=== PATIENT | male | born 1940 | race Caucasian/White ===

== ENCOUNTER 2017-01-24 14:42 | Outpatient (RCR) | payer MEDICARE | END 2017-04-24 | disposition home or self-care (01) | LOC: DSME 14:42 | PROVIDERS: ATTEND Family Medicine | DX: E11.65 Type 2 diabetes mellitus with hyperglycemia (principal); I10 Essential (primary) hypertension; E66.9 Obesity, unspecified ==

== ENCOUNTER 2017-05-09 05:50 | Outpatient (CLI) | payer MEDICARE ==
[~2017-05-09] VITALS: Ht 167.6 cm; Wt 77.1 kg
[2017-05-09] MEDS ORDERED: SIMV20TA3 PO (10:47)
[2017-05-09] MEDS ORDERED: LOSA100T28 PO (10:47)
[2017-05-09] MEDS ORDERED: BISO1TAB3 PO (10:47)
[2017-05-09] MEDS ORDERED: GLIM2TAB PO (10:47)
[2017-05-10] MEDS ORDERED: ACHD5005 PO (14:42)
== END 2017-05-09 10:56 ==
LOC: PREOP 05:50
PROVIDERS: ATTEND Surgery
DX: Z01.818 Encounter for other preprocedural examination (principal); L98.9 Disorder of the skin and subcutaneous tissue, unspecified

== ENCOUNTER 2017-07-28 12:50 | Outpatient (CLI) | payer MEDICARE ==
[~2017-07-28] VITALS: Ht 167.6 cm; Wt 77.1 kg
[~2017-07-28 12:50] MED LIST: ACHD5005 PO; BISO1TAB3 PO; GLIM2TAB PO; LOSA100T28 PO; SIMV20TA3 PO
== END 2017-07-28 13:04 ==
LOC: PREOP 12:50
PROVIDERS: ATTEND Urology
DX: Z01.818 Encounter for other preprocedural examination (principal); N40.0 Benign prostatic hyperplasia without lower urinary tract symptoms; R97.20 Elevated prostate specific antigen [PSA]

== ENCOUNTER 2017-08-03 06:00 | Day surgery (SDC) | payer MEDICARE ==
[~2017-08-03] VITALS: Ht 167.6 cm; Wt 77.1 kg
--- OUTSIDE RECORDS SUMMARY | 2017-08-03 06:08 | XMS REPORT | Continuity of Care Document ---
Author Author [facility] Organization [facility] Address Unknown Phone Unavailable Allergies Active Description Code Type Severity Reaction Onset Reported/Identified Relationship to Patient Clinical Status Yes No Known Drug Allergies [id number] Drug Allergy Unknown N/A 07/28/2017 Medications There is no data. Problems Date Dx Coded Attending Type Code Diagnosis Diagnosed By 01/24/2017 JAZMINE AVILEZ MD, Ot 562.10 DIVERTICULOSIS COLON (W/O MENT OF HEMORR 01/24/2017 JAZMINE AVILEZ MD Ot 599.70 HEMATURIA, UNSPECIFIED 01/25/2017 RANDI VIGIL MD Ot E11.65 TYPE 2 DIABETES MELLITUS WITH HYPERGLYCE 01/25/2017 RANDI VIGIL MD Ot E66.9 OBESITY, UNSPECIFIED 01/25/2017 RANDI VIGIL MD Ot I10 ESSENTIAL (PRIMARY) HYPERTENSION 04/24/2017 RANDI VIGIL MD Ot E11.65 TYPE 2 DIABETES MELLITUS WITH HYPERGLYCE 04/24/2017 RANDI VIGIL MD Ot E66.9 OBESITY, UNSPECIFIED 04/24/2017 RANDI VIGIL MD Ot I10 ESSENTIAL (PRIMARY) HYPERTENSION 04/25/2017 RANDI VIGIL MD Ot E11.65 TYPE 2 DIABETES MELLITUS WITH HYPERGLYCE 04/25/2017 RANDI VIGIL MD Ot E66.9 OBESITY, UNSPECIFIED 04/25/2017 RANDI VIGIL MD Ot I10 ESSENTIAL (PRIMARY) HYPERTENSION 05/09/2017 SACHI KNIGHT DO Ot L98.9 DISORDER OF THE SKIN AND SUBCUTANEOUS TI 05/09/2017 SACHI KNIGHT DO Ot Z01.818 ENCOUNTER FOR OTHER PREPROCEDURAL EXAMIN 05/09/2017 JAZMINE AVILEZ MD Ot 562.10 DIVERTICULOSIS COLON (W/O MENT OF HEMORR 05/09/2017 JAZMINE AVILEZ MD Ot 599.70 HEMATURIA, UNSPECIFIED 05/09/2017 YARITZA MD, RANDI A Ot E11.65 TYPE 2 DIABETES MELLITUS WITH HYPERGLYCE 05/09/2017 RANDI VIGIL MD Ot E66.9 OBESITY, UNSPECIFIED 05/09/2017 RANDI VIGIL MD Ot I10 ESSENTIAL (PRIMARY) HYPERTENSION 05/09/2017 RANDI VIGIL MD Ot E11.65 TYPE 2 DIABETES MELLITUS WITH HYPERGLYCE 05/09/2017 RANDI VIGIL MD Ot E66.9 OBESITY, UNSPECIFIED 05/09/2017 RANDI VIGIL MD Ot I10 ESSENTIAL (PRIMARY) HYPERTENSION 05/10/2017 SACHI KNIGHT DO Ot L98.9 DISORDER OF THE SKIN AND SUBCUTANEOUS TI 05/10/2017 SACHI KNIGHT DO Ot Z01.818 ENCOUNTER FOR OTHER PREPROCEDURAL EXAMIN 05/10/2017 RAGHAV SHEEHAN, JAZMINE Moreland Ot 562.10 DIVERTICULOSIS COLON (W/O MENT OF HEMORR 05/10/2017 JAZMINE AVILEZ MD Ot 599.70 HEMATURIA, UNSPECIFIED 05/10/2017 RANDI VIGIL MD Ot E11.65 TYPE 2 DIABETES MELLITUS WITH HYPERGLYCE 05/10/2017 RANDI VIGIL MD Ot E66.9 OBESITY, UNSPECIFIED 05/10/2017 RANDI VIGIL MD Ot I10 ESSENTIAL (PRIMARY) HYPERTENSION 05/10/2017 SACHI KNIGHT DO Ot C44.629 SQUAMOUS CELL CARCINOMA SKIN/ LEFT UPPER 05/10/2017 SACHI KNIGHT DO D Ot E11.9 TYPE 2 DIABETES MELLITUS WITHOUT COMPLIC 05/10/2017 SACHI KNIGHT DO Ot I10 ESSENTIAL (PRIMARY) HYPERTENSION 05/10/2017 SACHI KNIGHT DO D Ot 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 05/10/2017 SACHI KNIGHT DO Ot Z79.899 OTHER GROUP HOME (CURRENT) DRUG THERAPY 05/14/2017 SACHI KNIGHT DO D Ot C44.629 SQUAMOUS CELL CARCINOMA SKIN/ LEFT UPPER 05/14/2017 SACHI KNIGHT DO D Ot E11.9 TYPE 2 DIABETES MELLITUS WITHOUT COMPLIC 05/14/2017 GRACE KNIGHT DOTT D Ot I10 ESSENTIAL (PRIMARY) HYPERTENSION 05/14/2017 SACHI KNIGHT DO D Ot 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 05/14/2017 SACHI KNIGHT DO Ot Z79.899 OTHER GROUP HOME (CURRENT) DRUG THERAPY 05/15/2017 SACHI KNIGHT DO Ot L98.9 DISORDER OF THE SKIN AND SUBCUTANEOUS TI 05/15/2017 SACHI KNIGHT DO Ot Z01.818 ENCOUNTER FOR OTHER PREPROCEDURAL EXAMIN 05/21/2017 SACHI KNIGHT DO Ot C44.629 SQUAMOUS CELL CARCINOMA SKIN/ LEFT UPPER 05/21/2017 SACHI KNIGHT DO Ot E11.9 TYPE 2 DIABETES MELLITUS WITHOUT COMPLIC 05/21/2017 SACHI KNIGHT DO Ot I10 ESSENTIAL (PRIMARY) HYPERTENSION 05/21/2017 SACHI KNIGHT DO Ot 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 05/21/2017 SACHI KNIGHT DO Ot Z79.899 OTHER [employer] (CURRENT) DRUG THERAPY 07/21/2017 JAZMINE AVILEZ MD Ot 562.10 DIVERTICULOSIS COLON (W/O MENT OF HEMORR 07/21/2017 JAZMINE AVILEZ MD Ot 599.70 HEMATURIA, UNSPECIFIED 07/21/2017 RANDI VIGIL MD Ot E11.65 TYPE 2 DIABETES MELLITUS WITH HYPERGLYCE 07/21/2017 RANDI VIGIL MD Ot E66.9 OBESITY, UNSPECIFIED 07/21/2017 RANDI VIGIL MD Ot I10 ESSENTIAL (PRIMARY) HYPERTENSION 07/28/2017 RANDI VIGIL MD Ot E11.65 TYPE 2 DIABETES MELLITUS WITH HYPERGLYCE 07/28/2017 RANDI VIGIL MD Ot E66.9 OBESITY, UNSPECIFIED 07/28/2017 RANDI VIGIL MD Ot I10 ESSENTIAL (PRIMARY) HYPERTENSION 07/28/2017 JAZMINE AVILEZ MD Ot N40.0 BENIGN PROSTATIC HYPERPLASIA WITHOUT LOW 07/28/2017 JAZMINE AVILEZ MD Ot R97.20 ELEVATED PROSTATE SPECIFIC ANTIGEN [PSA] 07/28/2017 JAZMINE AVILEZ MD Ot Z01.818 ENCOUNTER FOR OTHER PREPROCEDURAL EXAMIN 07/28/2017 JAZMINE AVILEZ MD Ot N40.0 BENIGN PROSTATIC HYPERPLASIA WITHOUT LOW 07/28/2017 JAZMINE AVILEZ MD Ot R97.20 ELEVATED PROSTATE SPECIFIC ANTIGEN [PSA] 07/28/2017 JAZMINE AVILEZ MD Ot Z01.818 ENCOUNTER FOR OTHER PREPROCEDURAL EXAMIN 07/29/2017 JAZMINE AVILEZ MD Ot N40.0 BENIGN PROSTATIC HYPERPLASIA WITHOUT LOW 07/29/2017 JAZMINE AVILEZ MD Ot R97.20 ELEVATED PROSTATE SPECIFIC ANTIGEN [PSA] 07/29/2017 JAZMINE AVILEZ MD Ot Z01.818 ENCOUNTER FOR OTHER PREPROCEDURAL EXAMIN Procedures There is no data. Results Test Result Range Capillary blood glucose measurement by glucometer (mass/volume) - 05/10/17 13: 24 Capillary blood glucose measurement by glucometer (mass/volume) 125 mg/dL 70-110 Methicillin resistant Staphylococcus aureus (MRSA) screening culture - 13:25 Methicillin resistant Staphylococcus aureus (MRSA) screening culture NEG NRG Encounters ACCT No. Visit Date/Time Discharge Status Pt. Type Provider Facility Loc./Unit Complaint [id number] 07/28/2017 12:50:00 07/28/2017 13:04:00 DIS Outpatient JAZMINE AVILEZ MD [facility] PREOP CYSTO, PROSTATE BIOPSY [id number] 05/10/2017 13:05:00 05/10/2017 16:25:00 DIS Outpatient KNIGHT SACHI HENRY [facility] SKIN LESION LEFT ARM X2 [id number] 05/09/2017 05:50:00 05/09/2017 10:56:00 DIS Outpatient SACHI KNIGHT DO [facility] PREOP SKIN LESION LEFT ARM X2 [id number] 04/25/2017 15:00:00 04/25/2017 23:59:59 CLS Preadmit RANDI VIGIL MD [facility] DSME TYPE 2 DIABETES [id number] 01/24/2017 14:42:00 04/24/2017 00:01:00 DIS Outpatient RANDI VIGIL MD [facility] JONE TYPE 2 DIABETES [id number] 02/06/2013 14:55:00 02/06/2013 23:59:59 CLS Outpatient JAZMINE AVILEZ MD [facility] RAD HEMATURIA [id number] 08/03/2017 08:00:00 PEN Preadmit JAZMINE AVILEZ MD [facility] BPH, ELEVATED PSA [id number] 02/02/2017 14:53:08 02/02/2017 23:59:59 CLS Outpatient
[2017-08-03 06:40] VITALS: BP 155/79
[2017-08-03] MEDS ORDERED: MIDAZOLAM 2 MG/2 ML (VERSED) VIAL ONE (06:48)
[2017-08-03] MEDS ORDERED: proPOfol 200 MG/20 ML (DIPRIVAN) VIAL IV ONE (06:48)
[2017-08-03] MEDS ORDERED: ONDANSETRON 4 MG/2 ML (SDV) Z0FRAN ONE (06:48)
[2017-08-03] MEDS ORDERED: fentaNYL INJECTION 100 MCG/2 ML AMP ONE (06:48)
[2017-08-03] MEDS ORDERED: LIDOCAINE PF 2% 5 ML (XYLOCAINE) VIAL ONE (06:48)
[2017-08-03] MEDS ORDERED: SEVOFLURANE (ULTANE) 15 ML INHAL SOLN ONE ×2 (06:48→07:44)
[2017-08-03] MEDS ORDERED: LACTATED RINGERS 1,000 ML IV PRN (06:55)
[2017-08-03] MEDS ORDERED: cefTRIAXone INJECTION 1,000 MG in NS (IVPB) 100 ML IV ONE (07:00)
--- NOTE | 2017-08-03 07:11 | Progress Note-Pre Operative ---
Pre-Operative Progress Note H&P Reviewed The H&P was reviewed, patient examined and no changes noted. Date Seen by Provider: August 03, 2017 Time Seen by Provider: 07:10 Date H&P Reviewed: August 03, 2017 Time H&P Reviewed: 07:10 Pre-Operative Diagnosis: BPH AND ELEVATED PSA JAZMINE AVILEZ MD August 03, 2017 7:11 am
[2017-08-03] MEDS ORDERED: LIDOCAINE JELLY 2% (XYLOCAINE) 5 ML TUBE ONE (07:32)
--- NOTE | 2017-08-03 07:53 | Progress Note-Post Operative ---
Post-Operative Progess Note Surgeon (s)/Pack Room Operator (s) Surgeon JAZMINE AVILEZ MD Pack Room Operator: N/A Pre-Operative Diagnosis BPH AND ELEVATED PSA Post-Operative Diagnosis SAME Procedure & Operative Findings Date of Procedure 08/03/17 Procedure Performed/Findings CYSTOSCOPY AND PROSTATE BIOPSIES Anesthesia Type GENERAL Estimated Blood Loss Estimated blood loss (mL): NEGLIGIBLE Specimens/Packing Specimens Removed 8 PROSTATE BIOPSIES 4RT AND 4 LT Packing: N/A JAZMINE AVILEZ MD August 03, 2017 7:52 am
--- NOTE | 2017-08-03 07:54 | Discharge Inst-Urology ---
Discharge Inst-Urology Discharge Medications New, Converted, or Re-newed RX: RX on Chart Patient Instructions/Follow Up Plan Please make appointment to been seen in office in 2 weeks. Increase oral fluids for 48 hours and then as needed. Diet and Activity as tolerated. If questions or concerns contact your physician Or seek help at emergency department. JAZMINE AVILEZ MD August 03, 2017 7:54 am
[2017-08-03] MEDS ORDERED: MEPERIDINE (DEMEROL) INJ 50 MG/ML IVP PRN (08:00)
[2017-08-03] MEDS ORDERED: ONDANSETRON 4 MG/2 ML (SDV) Z0FRAN IVP PRN (08:00)
[2017-08-03] MEDS ORDERED: morphine INJ 10 MG/ML 1ML (SYR OR VIAL) IVP PRN (08:00)
[2017-08-03 08:30] VITALS: BP 113/75
[2017-08-03] MEDS ORDERED: LEVO500T2 PO (08:35)
[2017-08-03 09:00] VITALS: BP 142/64
[2017-08-03 09:05] VITALS: BP 142/64
--- NOTE | 2017-08-03 12:50 | OPERATIVE REPORT ---
DATE OF SERVICE: 08/03/2017 PREOPERATIVE DIAGNOSES: BPH and elevated PSA. POSTOPERATIVE DIAGNOSES: BPH and elevated PSA. OPERATION PERFORMED: Cystoscopy and transrectal needle biopsy of the prostate. SURGEON: Tristan Avilez MD ANESTHESIA: General. COMPLICATIONS: None. DESCRIPTION OF PROCEDURE: Under satisfactory general anesthesia, the patient in lithotomy position, genitalia were prepped and draped in the usual sterile fashion. A 23-[place]ian cystoscope was introduced under vision. The anterior urethra was normal. The prostate showed the high riding median bar with still some manipulation of the cystoscope to enter the bladder. The bladder revealed trabeculations, no foreign body, bladder tumor or stone visualized. Ureteric orifices normal in shape, size, configuration with clear efflux. The bladder was evacuated and the cystoscope was removed. Transrectal needle biopsies were obtained 4 on each side, trying to take them from various sides in the each lobe. Again, the prostate felt benign. There was minimal bleeding. The patient tolerated the procedure and anesthesia well and was sent to recovery room in stable condition. Instructions were given to the family and to the patient preoperatively. Job ID: [id number] DocumentID: [id number] Dictated Date: 08/03/2017 07:55:58 Metallurgist Helper Date: 08/03/2017 12:49:36 Dictated By: TRISTAN AVILEZ MD
--- NOTE | 2017-08-03 13:06 | Anesthesia-General Post-Op ---
General Patient Condition Mental Status/LOC: Same as Preop Cardiovascular: Satisfactory Nausea/Vomiting: Absent Respiratory: Satisfactory Pain: Controlled Complications: Absent Post Op Complications Complications None Follow Up Care/Instructions Patient Instructions None needed. Anesthesia/Patient Condition Patient Condition Patient is doing well, no complaints, stable vital signs, no apparent adverse anesthesia problems. No complications reported per nursing. CHELSEA LOPEZ CRNA August 03, 2017 13:06
== END 2017-08-03 09:25 | disposition home or self-care (01) ==
LOC: SDC 06:00
PROVIDERS: ATTEND Urology
DX: C61 Malignant neoplasm of prostate (principal); N40.0 Benign prostatic hyperplasia without lower urinary tract symptoms; R97.20 Elevated prostate specific antigen [PSA]; Z11.2 Encounter for screening for other bacterial diseases; E11.9 Type 2 diabetes mellitus without complications; E78.5 Hyperlipidemia, unspecified; I10 Essential (primary) hypertension; Z79.84 Long term (current) use of oral hypoglycemic drugs
CPT/HCPCS: 82962; 87081; 88305

== ENCOUNTER 2018-03-09 05:59 | Outpatient (CLI) | payer MEDICARE ==
[~2018-03-09] VITALS: Ht 167.6 cm; Wt 77.1 kg
[~2018-03-09 05:59] MED LIST changes: +LEVO500T2 PO; -LOSA100T28 PO; +LOSA100T8 PO
[2018-03-09] MEDS ORDERED: TAMS0.4C2 PO (12:56)
[2018-03-09] MEDS ORDERED: FINA5TAB6 PO (12:56)
== END 2018-03-09 13:00 | disposition home or self-care (01) ==
LOC: PREOP 05:59
PROVIDERS: ATTEND Urology
DX: Z01.818 Encounter for other preprocedural examination (principal)

== ENCOUNTER 2018-03-14 05:58 | Day surgery (SDC) | payer MEDICARE ==
[~2018-03-14] VITALS: Ht 160 cm; Wt 78.0 kg
[~2018-03-14 05:58] MED LIST changes: +FINA5TAB6 PO; +TAMS0.4C2 PO
--- OUTSIDE RECORDS SUMMARY | 2018-03-14 06:05 | XMS REPORT | CCD ---
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 Name Role Phone PP Unavailable CCM Unavailable Summary Purpose Interface Exchange Insurance Providers Payer name Policy type / Coverage type Covered green party ID Effective Begin Date Effective End Date WPS Medicare Part B Medicare Part B [id number] 2018 Unknown [facility] Medicare Part B No Plan Member ID Provided 2018 Unknown Family history Brother Diagnosis Age At Onset Prostate Cancer Unknown Kidney cancer Unknown Skin cancer Unknown Grandfather Diagnosis Age At Onset Stroke Unknown Father Diagnosis Age At Onset Diabetes mellitus Type 2 Unknown Mother Diagnosis Age At Onset Arthritis Unknown advanced age Unknown Social History Social History Element Codes Description Effective Dates Marital status Unknown 10/23/2014 Employment Unknown 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 10/23/[address]: 299942655 Never smoker 10/23/[address]: 905681157 Never drinks alcohol 10/23/2014 Allergies, Adverse Reactions, Alerts Substance Reaction Codes Entered Date Inactivated Date Status * NO KNOWN DRUG ALLERGIES Unknown 10/23/2014 No Inactive Date Active Past Medical History Illness Codes Condition Status Onset Date Resolved Date Chronic kidney disease, stage 3 (moderate) ICD-9: 585.3 ICD-10: N18.3 Active 11/16/2016 Unknown Essential (primary) hypertension ICD-9: 401.1 ICD-10: I10 Active 05/05/2017 Unknown Type 2 diabetes mellitus with hyperglycemia ICD-9: 250.00 ICD-10: E11.65 Active 10/22/2014 Unknown Malignant neoplasm of prostate ICD-9: 185 ICD-10: C61 Active 09/07/2017 Unknown Type 2 diabetes mellitus without complications ICD-9: 250.00 ICD-10: E11.9 Active 05/05/2017 Unknown Changes in skin texture ICD-9: 782.9 ICD-10: R23.4 Active 05/05/2017 Unknown Abnormal weight loss ICD-9: 783.21 ICD-10: R63.4 Active 03/03/2017 Unknown Encounter for general adult medical examination with abnormal findings ICD-9: V70.0 ICD-10: Z00.01 Active 03/15/2017 Unknown Essential (primary) hypertension ICD-9: 401.9 ICD-10: I10 Active 10/22/2014 Unknown Elevated prostate specific antigen [PSA] ICD-9: 790.93 ICD-10: R97.20 Active 11/16/2016 Unknown Mixed hyperlipidemia ICD-9: 272.2 ICD-10: E78.2 Active 07/19/2016 Unknown Encounter for general adult medical examination without abnormal findings ICD-9: V70.9 ICD-10: Z00.00 Active 03/11/2016 Unknown Hyperlipidemia, unspecified ICD-9: 272.4 ICD-10: E78.5 Active 11/05/2015 Unknown Other skin changes ICD -9: 709.9 ICD-10: R23.8 Active 10/22/2014 Unknown Unspecified amblyopia, right eye ICD-9: 368.00 ICD-10: H53.001 Active 07/28/2015 Unknown Other abnormal glucose ICD-9: 790.29 ICD-10: R73.09 Active 05/07/2015 Unknown Hyperlipidemia Unknown Active 04/29/2015 Unknown Diabetes Unknown Active 10/23/2014 Unknown Hypertension Unknown Active 10/23/2014 Unknown ACTINIC KERATOSIS ICD- 9: 702.0 Active 10/22/2014 Unknown Changing skin lesion ICD-9: 709.9 Active 10/22/2014 Unknown DIABETES TYPE II ICD-9 : 250.00 Active 10/22/2014 Unknown ESSENTIAL HYPERTENSION ICD-9: 401.9 Active 10/22/2014 Unknown Impacted cerumen ICD-9 : 380.4 Active 10/22/2014 Unknown Skin change ICD-9: 782.9 Active 10/22/2014 Unknown Problems Condition Codes Effective Dates Condition Status Chronic kidney disease, stage 3 (moderate) ICD-9: 585.3 ICD-10: N18.3 11/16/2016 Active Essential (primary) hypertension ICD-9: 401.1 ICD-10: I10 05/05/2017 Active Type 2 diabetes mellitus with hyperglycemia ICD-9: 250.00 ICD-10: E11.65 10/22/2014 Active Malignant neoplasm of prostate ICD-9: 185 ICD-10: C61 09/07/2017 Active Type 2 diabetes mellitus without complications ICD-9: 250.00 ICD-10: E11.9 05/05/2017 Active Changes in skin texture ICD-9: 782.9 ICD-10: R23.4 05/05/2017 Active Abnormal weight loss ICD-9: 783.21 ICD-10: R63.4 03/03/2017 Active Encounter for general adult medical examination with abnormal findings ICD-9: V70.0 ICD-10: Z00.01 03/15/2017 Active Essential (primary) hypertension ICD-9: 401.9 ICD-10: I10 10/22/2014 Active Elevated prostate specific antigen [PSA] ICD-9: 790.93 ICD-10: R97.20 11/16/2016 Active Mixed hyperlipidemia ICD-9: 272.2 ICD-10: E78.2 07/19/2016 Active Encounter for general adult medical examination without abnormal findings ICD-9: V70.9 ICD-10: Z00.00 03/11/2016 Active Hyperlipidemia, unspecified ICD-9: 272.4 ICD-10: E78.5 11/05/2015 Active Other skin changes ICD -9: 709.9 ICD-10: R23.8 10/22/2014 Active Unspecified amblyopia, right eye ICD-9: 368.00 ICD-10: H53.001 07/28/2015 Active Other abnormal glucose ICD-9: 790.29 ICD-10: R73.09 05/07/2015 Active Hyperlipidemia Unknown 04/29/2015 Active Diabetes Unknown 10/23/2014 Active Hypertension Unknown 10/23/2014 Active ACTINIC KERATOSIS ICD- 9: 702.0 10/22/2014 Active Changing skin lesion ICD-9: 709.9 10/22/2014 Active DIABETES TYPE II ICD-9 : 250.00 10/22/2014 Active ESSENTIAL HYPERTENSION ICD-9: 401.9 10/22/2014 Active Impacted cerumen ICD-9 : 380.4 10/22/2014 Active Skin change ICD-9: 782.9 10/22/2014 Active Medications Medication Codes Instructions Start Date Stop Date Status Fill Instructions simvastatin 20 mg tablet RxNorm: 898809 TAKE ONE TABLET BY MOUTH DAILY 03/06/2018 11/30/2018 Active Generic For:ZOCOR 20MG 03/06/2018 9:01:27 AM Truetest Test Strips RxNorm: TEST BLOOD SUGAR EVERY DAY 201711/26/2018 Active 01/30/2018 3:29:14 PM bisoprolol fumarate 5 mg tablet RxNorm: 652534 1 Tablet(s) PO BID 01/30/2018 08/27/2018 Active this replaces his combination pill glimepiride 2 mg tablet RxNorm: 473720 TAKE 1/2 (ONE- HALF) TABLET BY MOUTH TWICE DAILY 12/06/2017 06/03/2018 Active Generic For:AMARYL 2MG 12/06/2017 9:07:06 AM losartan 100 mg tablet RxNorm: 166157 TAKE 1 TABLET BY MOUTH DAILY 11/07/2017 06/04/2018 Active Generic For:COZAAR 100MG 11/07/2017 9:05:45 AM bisoprolol 5 mg-hydrochlorothiazide 6.25 mg tablet RxNorm: 699665 TAKE 1 TABLET BY MOUTH TWICE DAILY 09/15/20172017 Inactive Generic For:ZIAC 5-6.25MG 09/15/2017 9:07:10 AM glimepiride 2 mg tablet RxNorm: 213331 TAKE 1/2 (ONE- HALF) TABLET BY MOUTH TWICE DAILY 06/17/2017 12/05/2017 Inactive Generic For:AMARYL 2MG 06/17/2017 9:01:41 AM simvastatin 20 mg tablet RxNorm: 321736 TAKE ONE TABLET BY MOUTH DAILY 06/17/2017 03/05/2018 Inactive Generic For:ZOCOR 20MG 06/17/2017 9:01:38 AM losartan 100 mg tablet RxNorm: 056420 TAKE 1 TABLET BY MOUTH DAILY 04/18/2017 11/06/2017 Inactive Generic For:COZAAR 100MG 04/18/2017 9:40:33 AM bisoprolol 5 mg-hydrochlorothiazide 6.25 mg tablet RxNorm: 944447 TAKE 1 TABLET BY MOUTH TWICE DAILY 02/17/20172017 Inactive Generic For:ZIAC 5-6.25MG 02/17/2017 9:04:42 AM glimepiride 2 mg tablet RxNorm: 184739 1/2 Tablet(s) BID 201606/16/2017 Inactive Generic For:AMARYL 2MG 07/22/2016 9:03:39 AM Zithromax 250 mg tablet RxNorm: 296503 two pills on day #1 then 1 Tablet(s) PO daily 01/04/2017 01/08/2017 Inactive zpackx1 glimepiride 2 mg tablet RxNorm: 787496 1 Tablet(s) TAKE 1 TABLET BY MOUTH TWICE DAILY 11/17/2016 02/01/2017 Inactive Generic For:AMARYL 2MG 07/22/2016 9:03:39 AM glimepiride 2 mg tablet RxNorm: 757205 1 Tablet(s) TAKE 1 TABLET BY MOUTH TWICE DAILY 11/17/2016 11/16/2016 Inactive Generic For:AMARYL 2MG 07/22/2016 9:03:39 AM Ness Allergy 180 mg tablet RxNorm: 867947 1 Tablet(s) PO daily 10/25/2016 10/24/2016 Inactive Zithromax 250 mg tablet RxNorm: 558872 1 Tablet(s) PO daily 10/24/2016 Inactive zpackx1 Ness Allergy 180 mg tablet RxNorm: 432834 1 Tablet(s) PO daily 10/25/2016 03/07/2017 Inactive Zithromax 250 mg tablet RxNorm: 646098 1 Tablet(s) PO daily 10/29/2016 Inactive zpackx1 glimepiride 2 mg tablet RxNorm: 541281 1/2 Tablet(s) TAKE 1 TABLET BY MOUTH TWICE DAILY 10/12/2016 11/16/2016 Inactive Generic For:AMARYL 2MG 07/22/2016 9:03:39 AM losartan 100 mg tablet RxNorm: 912564 1 Tablet(s) PO daily 04/17/2017 Inactive metformin 500 mg tablet RxNorm: 565518 TAKE 1 TABLET BY MOUTH TWICE DAILY 09/20/2016 11/15/2016 Inactive Generic For:GLUCOPHAGE 500MG 09/20/2016 9:11:58 AM simvastatin 20 mg tablet RxNorm: 458393 TAKE ONE TABLET BY MOUTH DAILY 09/20/2016 06/16/2017 Inactive Generic For:ZOCOR 20MG 09/20/2016 9:11:29 AM bisoprolol 5 mg-hydrochlorothiazide 6.25 mg tablet RxNorm: 966603 TAKE 1 TABLET BY MOUTH TWICE DAILY 07/22/20162016 Inactive Generic For:ZIAC 5-6.25MG 07/22/2016 9:03:48 AM glimepiride 2 mg tablet RxNorm: 523268 TAKE 1 TABLET BY MOUTH TWICE DAILY 07/22/2016 10/11/2016 Inactive Generic For:AMARYL 2MG 07/22/2016 9:03:39 AM meloxicam 15 mg tablet RxNorm: 963380 TAKE 1 TABLET BY MOUTH DAILY 05/24/2016 11/15/2016 Inactive Generic For:MOBIC 15MG 05/24/2016 9:12:11 AM metformin 500 mg tablet RxNorm: 085867 1 Tablet(s) BID 201609/19/2016 Inactive Generic For:GLUCOPHAGE 500MG 04/29/2015 3:46:58 PM bisoprolol 5 mg-hydrochlorothiazide 6.25 mg tablet RxNorm: 344112 TAKE 1 TABLET BY MOUTH TWICE DAILY 03/31/20162016 Inactive Generic For:ZIAC 5-6.25MG 03/31/2016 12:38:33 PM glimepiride 2 mg tablet RxNorm: 815902 TAKE 1 TABLET BY MOUTH TWICE DAILY 03/31/2016 07/21/2016 Inactive Generic For:AMARYL 2MG 03/31/2016 12:38:28 PM losartan 100 mg tablet RxNorm: 423312 1 Tablet(s) PO daily 09/19/2016 Inactive simvastatin 20 mg tablet RxNorm: 986551 1 Tablet(s) PO daily 09/18/2016 Inactive glimepiride 2 mg tablet RxNorm: 092173 1 Tablet(s) PO BID 11/2303/22/2016 Inactive meloxicam 15 mg tablet RxNorm: 061817 1 Tablet(s) PO daily 05/21/2016 Inactive bisoprolol 5 mg-hydrochlorothiazide 6.25 mg tablet RxNorm: 073807 1 Tablet(s) PO BID 11/24/2015 03/22/2016 Inactive Generic For:ZIAC 5-6.25MG 03/31/2015 4:06:14 PM03/31/2015 3:58:36 PM metformin 500 mg tablet RxNorm: 638583 1 Tablet(s) BID 201504/04/2016 Inactive Generic For:GLUCOPHAGE 500MG 04/29/2015 3:46:58 PM losartan 50 mg tablet RxNorm: 977435 1 Tablet(s) PO daily 201502/29/2016 Inactive bisoprolol 5 mg-hydrochlorothiazide 6.25 mg tablet RxNorm: 235302 1 Tablet(s) PO BID 07/29/2015 11/23/2015 Inactive Generic For:ZIAC 5-6.25MG 03/31/2015 4:06:14 PM03/31/2015 3:58:36 PM bisoprolol 5 mg-hydrochlorothiazide 6.25 mg tablet RxNorm: 285180 Tablet(s) 1 TABLET(S) BY MOUTH DAILY 07/21/20152015 Inactive Generic For:ZIAC 5-6.25MG 03/31/2015 4:06:14 PM03/31/2015 3:58:36 PM meloxicam 15 mg tablet RxNorm: 580926 1 Tablet(s) PO daily 11/17/2015 Inactive glimepiride 2 mg tablet RxNorm: 096330 1 Tablet(s) PO BID 07/2011/17/2015 Inactive metformin 500 mg tablet RxNorm: 569265 Tablet(s) TAKE 1 TABLET BY MOUTH IN THE MORNING AND 1/2 TABLET IN THE EVENING 06/16/2015 11/06/2015 Inactive Generic For: GLUCOPHAGE 500MG 04/29/2015 3:46:58 PM metformin 500 mg tablet RxNorm: 957746 Tablet(s) TAKE 1 TABLET BY MOUTH IN THE MORNING AND 1/2 TABLET IN THE EVENING 05/19/2015 06/15/2015 Inactive Generic For: GLUCOPHAGE 500MG 04/29/2015 3:46:58 PM metformin 500 mg tablet RxNorm: 030390 TAKE 1/2 (ONE- HALF) TABLET BY MOUTH DAILY BY MOUTH TWICE DAILY 04/29/20152015 Inactive Generic For:GLUCOPHAGE 500MG 04/29/2015 3:46:58 PM meloxicam 15 mg tablet RxNorm: 833166 1 Tablet(s) PO daily 07/20/2015 Inactive simvastatin 20 mg tablet RxNorm: 587311 1 Tablet(s) PO daily 12/23/2015 Inactive bisoprolol 5 mg-hydrochlorothiazide 6.25 mg tablet RxNorm: 888576 1 TABLET(S) BY MOUTH DAILY 03/31/2015 07/20/2015 Inactive Generic For:ZIAC 5-6.25MG 03/31/2015 4: 06:14 PM03/31/2015 3:58:36 PM glimepiride 2 mg tablet RxNorm: 989999 1 Tablet(s) PO BID 02/0506/04/2015 Inactive increase to BID metformin 500 mg tablet RxNorm: 323115 1/2 Tablet(s) PO BID 04/20/2015 Inactive bisoprolol 5 mg-hydrochlorothiazide 6.25 mg tablet RxNorm: 326903 1 Tablet(s) PO daily 12/05/2014 12/04/2014 Inactive bisoprolol 5 mg-hydrochlorothiazide 6.25 mg tablet RxNorm: 151546 1 Tablet(s) PO daily 12/05/2014 03/30/2015 Inactive meloxicam 15 mg tablet RxNorm: 473858 1 Tablet(s) PO daily 04/201404/01/2015 Inactive Truetest Test Strips RxNorm: Miscellaneous daily 11/20/2014 11/19/2014 Inactive Truetest Test Strips RxNorm: Miscellaneous daily 11/20/2014 11/14/2015 Inactive finasteride 5 mg tablet RxNorm: 710625 1 Tablet(s) PO daily No Start Date Active tamsulosin 0.4 mg capsule RxNorm: 054271 1 Capsule(s) PO daily No Start Date Active simvastatin 20 mg tablet RxNorm: 868648 1 Tablet(s) PO daily No Start Date 04/01/2015 Inactive meloxicam 15 mg tablet RxNorm: 848476 1 Tablet(s) PO daily No Start Date 12/02/2014 Inactive metformin 500 mg tablet RxNorm: 242050 1/2 Tablet(s) PO BID No Start Date 01/20/2015 Inactive glimepiride 2 mg tablet RxNorm: 137471 1 Tablet(s) PO daily No Start Date 02/04/2015 Inactive Ziac 5 mg-6.25 mg tablet RxNorm: 203605 1 Tablet(s) PO daily No Start Date 04/02/2015 Inactive Medication Administered No Medication Administered data Immunizations No Immunization data Assessments Condition Codes Effective Dates Type 2 diabetes mellitus with hyperglycemia ICD-10: E11.65 ICD-9: 250.00 03/07/2018 Chronic kidney disease, stage 3 (moderate) ICD-10: N18.3 ICD-9: 585.3 03/07/2018 Essential (primary) hypertension ICD-10: I10 ICD-9: 401.1 03/07/2018 Type 2 diabetes mellitus without complications ICD-10: E11.9 ICD-9: 250.00 09/07/2017 Malignant neoplasm of prostate ICD-10: C61 ICD-9: 185 09/07/2017 Changes in skin texture ICD-10: R23.4 ICD-9: 782.9 05/05/2017 Abnormal weight loss ICD-10: R63.4 ICD-9: 783.21 2017 Encounter for general adult medical examination with abnormal findings ICD-10: Z00.01 ICD-9: V70.0 03/15/2017 Essential (primary) hypertension ICD-10: I10 ICD-9: 401.9 02/02/2017 Elevated prostate specific antigen [PSA] ICD-10: R97.20 ICD-9: 790.93 11/16/2016 Mixed hyperlipidemia ICD-10: E78.2 ICD-9: 272.2 07/19/2016 Encounter for general adult medical examination without abnormal findings ICD-10: Z00.00 ICD-9: V70.9 03/12/2016 Hyperlipidemia, unspecified ICD-10: E78.5 ICD-9: 272.4 11/06/2015 Other skin changes ICD-10: R23.8 ICD-9: 709.9 08/26/2015 Unspecified amblyopia, right eye ICD-10: H53.001 ICD-9: 368.00 07/29/2015 Other abnormal glucose ICD-10: R73.09 ICD-9: 790.29 05/08/2015 DIABETES TYPE II ICD-9: 250.00 2014 ACTINIC KERATOSIS ICD-9: 702.0 2014 Impacted cerumen ICD-9: 380.4 10/23/2014 Skin change ICD-9: 782.9 10/23/2014 Changing skin lesion ICD-9: 709.9 2014 ESSENTIAL HYPERTENSION ICD-9: 401.9 10/23 Reason For Visit Reason For Visit Effective Dates Notes hypertension 03/07/2018 hypertension 01/30/2018 hypertension 09/07/2017 hypertension 05/05/2017 right forefinger Annual Medicare Wellness Exam 03/15/2017 hypertension 02/02/2017 hypertension 01/04/2017 hypertension 11/16/2016 sugars run from 68-140 hypertension 07/19/2016 Annual Medicare Wellness Exam 03/12/2016 hypertension 03/10/2016 hypertension 11/06/2015 hypertension 08/26/2015 hypertension 07/29/2015 hypertension 04/29/2015 hypertension 10/23/2014 Results Observation Observation Code Item Item Code Result Date Metabolic Ord15 NA 138 mEq/L 03/03/2018 Metabolic Ord15 K 4.9 mEq/L 03/03/2018 Metabolic Ord15 CL 106 mEq/L 03/03/2018 Metabolic Ord15 CO2 26.0 mEq/L 03/03/2018 Metabolic Ord15 GLUCOSE 153 mg/dL 03/03/2018 Metabolic Ord15 BUN 26 mg/dL 03/03/2018 Metabolic Ord15 Creat 1.5 mg/dL 03/03/2018 Metabolic Ord15 B/C Ratio 17.2 Ratio 03/03/2018 Metabolic Ord15 eGFR 48 ml/min/1.73m2 03/03/2018 Metabolic Ord15 Osmo 283 mOsmo 03/03/2018 Metabolic Ord15 ANION GAP 11 03/03/2018 Metabolic Ord15 CALCIUM 9.5 mg/dL 03/03/2018 %Hba1C Hxd258 % HbA1c 63478-3 6.7 % 01/02/2018 %Hba1C Eal483 Gluc Ave 146 mg/dL 01/02/2018 Cbc With Differential Ord2 WBC 7.31 K/ul 01/02/2018 Cbc With Differential Ord2 RBC 4.50 M/ul 01/02/2018 Cbc With Differential Ord2 HGB 14.7 g/dl 01/02/2018 Cbc With Differential Ord2 HCT 44.2 % 01/02/2018 Cbc With Differential Ord2 Neut% 69.5 % 01/02/2018 Cbc With Differential Ord2 MCV 98.2 fl 01/02/2018 Cbc With Differential Ord2 Lymph% 19.8 % 01/02/2018 Cbc With Differential Ord2 MCH 32.7 pg 01/02/2018 Cbc With Differential Ord2 [place]% 9.2 % 01/02/2018 Cbc With Differential Ord2 MCHC 33.3 pg 01/02/2018 Cbc With Differential Ord2 Eos% 1.2 % 01/02/2018 Cbc With Differential Ord2 PLT 327 K/ul 01/02/2018 Cbc With Differential Ord2 Baso% 0.3 % 01/02/2018 Cbc With Differential Ord2 RDW 12.8 % 01/02/2018 Cbc With Differential Ord2 Neut ABS# 5.08 K/ul 01/02/2018 Cbc With Differential Ord2 Lymph ABS# 1.45 K/ul 01/02/2018 Cbc With Differential Ord2 [place] ABS# 0.7 K/ul 01/02/2018 Cbc With Differential Ord2 Eos ABS# 0.1 K/ul 01/02/2018 Cbc With Differential Ord2 Baso ABS# 0.0 K/ul 01/02/2018 Comp Metabolic Pfc339 NA 138 mEq/L 01/02/2018 Comp Metabolic Gbe591 K 4.5 mEq/L 01/02/2018 Comp Metabolic Ziz082 CL 103 mEq/L 01/02/2018 Comp Metabolic Vrf539 CO2 28.0 mEq/L 01/02/2018 Comp Metabolic Hcz967 ANION GAP 12 01/02/2018 Comp Metabolic Osa586 GLUCOSE 186 mg/dL 01/02/2018 Comp Metabolic Bym912 Creat 1.9 mg/dL 01/02/2018 Comp Metabolic Xxd050 eGFR 37 ml/min/1.73m2 01/02/2018 Comp Metabolic Qmc776 BUN 23 mg/dL 01/02/2018 Comp Metabolic Gdm801 B/C Ratio 12.2 Ratio 01/02/2018 Comp Metabolic Ayu607 CALCIUM 9.4 mg/dL 01/02/2018 Comp Metabolic Rja905 ALK PHOS 46 U/L 01/02/2018 Comp Metabolic Egh914 AST(SGOT) 16 U/L 01/02/2018 Comp Metabolic Vhu912 ALT(SGPT) 19 U/L 01/02/2018 Comp Metabolic Byl892 BILI T 0.6 mg/dL 01/02/2018 Comp Metabolic Zoj558 ALBUMIN 3.8 g/dL 01/02/2018 Comp Metabolic Koz176 TPRO 6.1 g/dL 01/02/2018 Comp Metabolic Fon239 GLOB 2.3 g/dL 01/02/2018 Comp Metabolic Wcu154 A/G Ratio 1.6 Ratio 01/02/2018 Comp Metabolic Jub707 Osmo 284 mOsmo 01/02/2018 %Hba1C Msr404 % HbA1c 27547-2 6.5 % 08/31/2017 %Hba1C Ivk001 Gluc Ave 140 mg/dL 08/31/2017 Lipid Ord30 CHOL 136 mg/dL 08/31/2017 Lipid Ord30 HDL 49.0 mg/dl 08/31/2017 Lipid Ord30 TRIG 67 mg/dL 08/31/2017 Lipid Ord30 LDL 74 mg/dL 08/31/2017 Lipid Ord30 C/HDL 2.8 Ratio 08/31/2017 Cbc With Differential Ord2 WBC 7.29 K/ul 08/31/2017 Cbc With Differential Ord2 RBC 4.52 M/ul 08/31/2017 Cbc With Differential Ord2 HGB 14.9 g/dl 08/31/2017 Cbc With Differential Ord2 HCT 44.4 % 08/31/2017 Cbc With Differential Ord2 Neut% 61.8 % 08/31/2017 Cbc With Differential Ord2 Lymph% 24.3 % 08/31/2017 Cbc With Differential Ord2 MCV 98.2 fl 08/31/2017 Cbc With Differential Ord2 MCH 33.0 pg 08/31/2017 Cbc With Differential Ord2 [place]% 11.7 % 08/31/2017 Cbc With Differential Ord2 Eos% 1.8 % 08/31/2017 Cbc With Differential Ord2 MCHC 33.6 pg 08/31/2017 Cbc With Differential Ord2 Baso% 0.4 % 08/31/2017 Cbc With Differential Ord2 PLT 348 K/ul 08/31/2017 Cbc With Differential Ord2 Neut ABS# 4.51 K/ul 08/31/2017 Cbc With Differential Ord2 RDW 13.0 % 08/31/2017 Cbc With Differential Ord2 Lymph ABS# 1.77 K/ul 08/31/2017 Cbc With Differential Ord2 [place] ABS# 0.9 K/ul 08/31/2017 Cbc With Differential Ord2 Eos ABS# 0.1 K/ul 08/31/2017 Cbc With Differential Ord2 Baso ABS# 0.0 K/ul 08/31/2017 Comp Metabolic Zyb153 NA 139 mEq/L 08/31/2017 Comp Metabolic Vpr347 K 4.7 mEq/L 08/31/2017 Comp Metabolic Bms070 CL 107 mEq/L 08/31/2017 Comp Metabolic Cbm772 CO2 24.0 mEq/L 08/31/2017 Comp Metabolic Flj760 ANION GAP 13 08/31/2017 Comp Metabolic Ylu380 GLUCOSE 158 mg/dL 08/31/2017 Comp Metabolic Cyy166 Creat 1.7 mg/dL 08/31/2017 Comp Metabolic Oqs084 eGFR 43 ml/min/1.73m2 08/31/2017 Comp Metabolic Qei228 BUN 26 mg/dL 08/31/2017 Comp Metabolic Hjk715 B/C Ratio 15.5 Ratio 08/31/2017 Comp Metabolic Otf018 CALCIUM 9.5 mg/dL 08/31/2017 Comp Metabolic Ltd096 ALK PHOS 47 U/L 08/31/2017 Comp Metabolic Rua525 AST(SGOT) 16 U/L 08/31/2017 Comp Metabolic Lrh183 ALT(SGPT) 17 U/L 08/31/2017 Comp Metabolic Owo544 BILI T 0.8 mg/dL 08/31/2017 Comp Metabolic Hgd459 ALBUMIN 4.0 g/dL 08/31/2017 Comp Metabolic Wqc673 TPRO 6.4 g/dL 08/31/2017 Comp Metabolic Jyp794 GLOB 2.5 g/dL 08/31/2017 Comp Metabolic Upf488 A/G Ratio 1.6 Ratio 08/31/2017 Comp Metabolic Aqy739 Osmo 286 mOsmo 08/31/2017 Tsh Ord6 hTSH II 1.25 uIU/mL 04/27/2017 Cbc With Differential Ord2 WBC 6.48 K/ul 04/27/2017 Cbc With Differential Ord2 RBC 4.53 M/ul 04/27/2017 Cbc With Differential Ord2 HGB 14.7 g/dl 04/27/2017 Cbc With Differential Ord2 HCT 44.4 % 04/27/2017 Cbc With Differential Ord2 Neut% 64.9 % 04/27/2017 Cbc With Differential Ord2 MCV 98.0 fl 04/27/2017 Cbc With Differential Ord2 Lymph% 21.9 % 04/27/2017 Cbc With Differential Ord2 [place]% 10.5 % 04/27/2017 Cbc With Differential Ord2 MCH 32.5 pg 04/27/2017 Cbc With Differential Ord2 MCHC 33.1 pg 04/27/2017 Cbc With Differential Ord2 Eos% 2.2 % 04/27/2017 Cbc With Differential Ord2 PLT 378 K/ul 04/27/2017 Cbc With Differential Ord2 Baso% 0.5 % 04/27/2017 Cbc With Differential Ord2 Neut ABS# 4.21 K/ul 04/27/2017 Cbc With Differential Ord2 RDW 13.0 % 04/27/2017 Cbc With Differential Ord2 Lymph ABS# 1.42 K/ul 04/27/2017 Cbc With Differential Ord2 [place] ABS# 0.7 K/ul 04/27/2017 Cbc With Differential Ord2 Eos ABS# 0.1 K/ul 04/27/2017 Cbc With Differential Ord2 Baso ABS# 0.0 K/ul 04/27/2017 %Hba1C Mai519 % HbA1c 96589-1 6.5 % 04/27/2017 %Hba1C Win394 Gluc Ave 140 mg/dL 04/27/2017 Lipid Ord30 CHOL 134 mg/dL 04/27/2017 Lipid Ord30 HDL 44.0 mg/dl 04/27/2017 Lipid Ord30 TRIG 89 mg/dL 04/27/2017 Lipid Ord30 LDL 72 mg/dL 04/27/2017 Lipid Ord30 C/HDL 3.0 Ratio 04/27/2017 Comp Metabolic Xmi758 NA 140 mEq/L 04/27/2017 Comp Metabolic Nxs615 K 4.3 mEq/L 04/27/2017 Comp Metabolic Mvd834 CL 105 mEq/L 04/27/2017 Comp Metabolic Kzk866 CO2 26.0 mEq/L 04/27/2017 Comp Metabolic Ncw884 ANION GAP 13 04/27/2017 Comp Metabolic Oww775 GLUCOSE 117 mg/dL 04/27/2017 Comp Metabolic Jfc979 Creat 1.6 mg/dL 04/27/2017 Comp Metabolic Kvr666 eGFR 45 ml/min/1.73m2 04/27/2017 Comp Metabolic Crp303 BUN 27 mg/dL 04/27/2017 Comp Metabolic Hlw434 B/C Ratio 16.9 Ratio 04/27/2017 Comp Metabolic Zou978 CALCIUM 9.5 mg/dL 04/27/2017 Comp Metabolic Zrg282 ALK PHOS 55 U/L 04/27/2017 Comp Metabolic Heq501 AST(SGOT) 20 U/L 04/27/2017 Comp Metabolic Eib850 ALT(SGPT) 18 U/L 04/27/2017 Comp Metabolic Uod504 BILI T 0.4 mg/dL 04/27/2017 Comp Metabolic Zxt861 ALBUMIN 4.0 g/dL 04/27/2017 Comp Metabolic Luj884 TPRO 6.5 g/dL 04/27/2017 Comp Metabolic Vvf019 GLOB 2.5 g/dL 04/27/2017 Comp Metabolic Gnu335 A/G Ratio 1.6 Ratio 04/27/2017 Comp Metabolic Eoi444 Osmo 286 mOsmo 04/27/2017 Total Psa Ord10 PSA 7.87 ng/mL 04/27/2017 Comp Metabolic Vgp550 NA 136 mEq/L 12/29/2016 Comp Metabolic Btg136 K 4.5 mEq/L 12/29/2016 Comp Metabolic Lqe697 CL 103 mEq/L 12/29/2016 Comp Metabolic Suq586 CO2 24.0 mEq/L 12/29/2016 Comp Metabolic Mfc655 ANION GAP 14 12/29/2016 Comp Metabolic Xse406 GLUCOSE 164 mg/dL 12/29/2016 Comp Metabolic Ayb126 Creat 1.7 mg/dL 12/29/2016 Comp Metabolic Vhz902 eGFR 43 ml/min/1.73m2 12/29/2016 Comp Metabolic Bjl074 BUN 22 mg/dL 12/29/2016 Comp Metabolic Ydh609 B/C Ratio 13.3 Ratio 12/29/2016 Comp Metabolic Dod744 CALCIUM 9.5 mg/dL 12/29/2016 Comp Metabolic Hvw640 ALK PHOS 58 U/L 12/29/2016 Comp Metabolic Gwz723 AST(SGOT) 16 U/L 12/29/2016 Comp Metabolic Qgx410 ALT(SGPT) 16 U/L 12/29/2016 Comp Metabolic Yjk920 BILI T 0.9 mg/dL 12/29/2016 Comp Metabolic Soc584 ALBUMIN 3.9 g/dL 12/29/2016 Comp Metabolic Kee374 TPRO 6.4 g/dL 12/29/2016 Comp Metabolic Uhf788 GLOB 2.5 g/dL 12/29/2016 Comp Metabolic Mnc680 A/G Ratio 1.5 Ratio 12/29/2016 Comp Metabolic Nun735 Osmo 279 mOsmo 12/29/2016 Total Psa Ord10 PSA 8.44 ng/mL 11/09/2016 %Hba1C Ayd339 % HbA1c 37317-4 6.4 % 11/09/2016 %Hba1C Ffl364 Gluc Ave 137 mg/dL 11/09/2016 Cbc With Differential Ord2 WBC 9.15 K/ul 11/09/2016 Cbc With Differential Ord2 RBC 4.00 M/ul 11/09/2016 Cbc With Differential Ord2 HGB 13.5 g/dl 11/09/2016 Cbc With Differential Ord2 Neut% 60.2 % 11/09/2016 Cbc With Differential Ord2 HCT 39.6 % 11/09/2016 Cbc With Differential Ord2 MCV 99.0 fl 11/09/2016 Cbc With Differential Ord2 Lymph% 25.0 % 11/09/2016 Cbc With Differential Ord2 [place]% 11.8 % 11/09/2016 Cbc With Differential Ord2 MCH 33.8 pg 11/09/2016 Cbc With Differential Ord2 MCHC 34.1 pg 11/09/2016 Cbc With Differential Ord2 Eos% 2.7 % 11/09/2016 Cbc With Differential Ord2 PLT 379 K/ul 11/09/2016 Cbc With Differential Ord2 Baso% 0.3 % 11/09/2016 Cbc With Differential Ord2 Neut ABS# 5.50 K/ul 11/09/2016 Cbc With Differential Ord2 RDW 12.8 % 11/09/2016 Cbc With Differential Ord2 Lymph ABS# 2.29 K/ul 11/09/2016 Cbc With Differential Ord2 [place] ABS# 1.1 K/ul 11/09/2016 Cbc With Differential Ord2 Eos ABS# 0.3 K/ul 11/09/2016 Cbc With Differential Ord2 Baso ABS# 0.0 K/ul 11/09/2016 Lipid Ord30 CHOL 152 mg/dL 11/09/2016 Lipid Ord30 HDL 46.0 mg/dl 11/09/2016 Lipid Ord30 TRIG 144 mg/dL 11/09/2016 Lipid Ord30 LDL 77 mg/dL 11/09/2016 Lipid Ord30 C/HDL 3.3 Ratio 11/09/2016 Comp Metabolic Plv910 NA 140 mEq/L 11/09/2016 Comp Metabolic Wzf015 K 4.9 mEq/L 11/09/2016 Comp Metabolic Zsp336 CL 106 mEq/L 11/09/2016 Comp Metabolic Edv734 CO2 25.0 mEq/L 11/09/2016 Comp Metabolic Sfl015 ANION GAP 14 11/09/2016 Comp Metabolic Crd117 GLUCOSE 127 mg/dL 11/09/2016 Comp Metabolic Mkb499 Creat 1.7 mg/dL 11/09/2016 Comp Metabolic Hlk105 eGFR 43 ml/min/1.73m2 11/09/2016 Comp Metabolic Ofn631 BUN 21 mg/dL 11/09/2016 Comp Metabolic Ryo117 B/C Ratio 12.7 Ratio 11/09/2016 Comp Metabolic Rup837 CALCIUM 9.5 mg/dL 11/09/2016 Comp Metabolic Oaf440 ALK PHOS 45 U/L 11/09/2016 Comp Metabolic Mms809 AST(SGOT) 18 U/L 11/09/2016 Comp Metabolic Bkr918 ALT(SGPT) 16 U/L 11/09/2016 Comp Metabolic Bht310 BILI T 0.6 mg/dL 11/09/2016 Comp Metabolic Mwu755 ALBUMIN 3.9 g/dL 11/09/2016 Comp Metabolic Xru335 TPRO 6.4 g/dL 11/09/2016 Comp Metabolic Yha690 GLOB 2.5 g/dL 11/09/2016 Comp Metabolic Wlq412 A/G Ratio 1.5 Ratio 11/09/2016 Comp Metabolic Xjh589 Osmo 284 mOsmo 11/09/2016 Tsh Ord6 hTSH II 0.65 uIU/mL 03/10/2016 Lipid Ord30 CHOL 141 mg/dL 03/10/2016 Lipid Ord30 HDL 48.0 mg/dl 03/10/2016 Lipid Ord30 TRIG 78 mg/dL 03/10/2016 Lipid Ord30 LDL 77 mg/dL 03/10/2016 Lipid Ord30 C/HDL 2.9 Ratio 03/10/2016 Cbc With Differential Ord2 WBC 9.82 K/ul 03/10/2016 Cbc With Differential Ord2 RBC 4.74 M/ul 03/10/2016 Cbc With Differential Ord2 HGB 15.6 g/dl 03/10/2016 Cbc With Differential Ord2 HCT 46.2 % 03/10/2016 Cbc With Differential Ord2 Neut% 72.9 % 03/10/2016 Cbc With Differential Ord2 MCV 97.5 fl 03/10/2016 Cbc With Differential Ord2 Lymph% 15.1 % 03/10/2016 Cbc With Differential Ord2 [place]% 10.6 % 03/10/2016 Cbc With Differential Ord2 MCH 32.9 pg 03/10/2016 Cbc With Differential Ord2 MCHC 33.8 pg 03/10/2016 Cbc With Differential Ord2 Eos% 1.2 % 03/10/2016 Cbc With Differential Ord2 Baso% 0.2 % 03/10/2016 Cbc With Differential Ord2 PLT 364 K/ul 03/10/2016 Cbc With Differential Ord2 Neut ABS# 7.16 K/ul 03/10/2016 Cbc With Differential Ord2 RDW 12.8 % 03/10/2016 Cbc With Differential Ord2 Lymph ABS# 1.48 K/ul 03/10/2016 Cbc With Differential Ord2 [place] ABS# 1.0 K/ul 03/10/2016 Cbc With Differential Ord2 Eos ABS# 0.1 K/ul 03/10/2016 Cbc With Differential Ord2 Baso ABS# 0.0 K/ul 03/10/2016 %Hba1C Zlm420 % HbA1c 57484-4 6.6 % 03/10/2016 %Hba1C Kbq289 Gluc Ave 143 mg/dL 03/10/2016 Comp Metabolic Gdy005 NA 138 mEq/L 03/10/2016 Comp Metabolic Hvd726 K 4.9 mEq/L 03/10/2016 Comp Metabolic Ibb260 CL 102 mEq/L 03/10/2016 Comp Metabolic Gvp457 CO2 28.0 mEq/L 03/10/2016 Comp Metabolic Zov967 ANION GAP 13 03/10/2016 Comp Metabolic Jvx242 GLUCOSE 135 mg/dL 03/10/2016 Comp Metabolic Oot004 Creat 1.5 mg/dL 03/10/2016 Comp Metabolic Lxb651 eGFR 51 ml/min/1.73m2 03/10/2016 Comp Metabolic Xym505 BUN 28 mg/dL 03/10/2016 Comp Metabolic Jvx445 B/C Ratio 19.3 Ratio 03/10/2016 Comp Metabolic Bog565 CALCIUM 9.8 mg/dL 03/10/2016 Comp Metabolic Apf221 ALK PHOS 52 U/L 03/10/2016 Comp Metabolic Skp758 AST(SGOT) 19 U/L 03/10/2016 Comp Metabolic Wue972 ALT(SGPT) 22 U/L 03/10/2016 Comp Metabolic Bpe920 BILI T 0.5 mg/dL 03/10/2016 Comp Metabolic Ltn764 ALBUMIN 4.4 g/dL 03/10/2016 Comp Metabolic Eby037 TPRO 6.8 g/dL 03/10/2016 Comp Metabolic Joz911 GLOB 2.4 g/dL 03/10/2016 Comp Metabolic Osl964 A/G Ratio 1.8 Ratio 03/10/2016 Comp Metabolic Qmp414 Osmo 283 mOsmo 03/10/2016 Comp Metabolic Cln807 NA 136 mEq/L 11/06/2015 Comp Metabolic Wln569 K 4.0 mEq/L 11/06/2015 Comp Metabolic Fox444 CL 102 mEq/L 11/06/2015 Comp Metabolic Fry040 CO2 27.0 mEq/L 11/06/2015 Comp Metabolic Xsl869 ANION GAP 11 11/06/2015 Comp Metabolic Sqe703 GLUCOSE 144 mg/dL 11/06/2015 Comp Metabolic Tyv732 Creat 1.2 mg/dL 11/06/2015 Comp Metabolic Uxz404 eGFR 64 ml/min/1.73m2 11/06/2015 Comp Metabolic Nyr076 BUN 23 mg/dL 11/06/2015 Comp Metabolic Kxd216 B/C Ratio 19.3 Ratio 11/06/2015 Comp Metabolic Jyi266 CALCIUM 10.2 mg/dL 11/06/2015 Comp Metabolic Tjd446 ALK PHOS 52 U/L 11/06/2015 Comp Metabolic Uhz216 AST(SGOT) 16 U/L 11/06/2015 Comp Metabolic Bic092 ALT(SGPT) 19 U/L 11/06/2015 Comp Metabolic Iml399 BILI T 0.7 mg/dL 11/06/2015 Comp Metabolic Qbi026 ALBUMIN 4.3 g/dL 11/06/2015 Comp Metabolic Zxv362 TPRO 6.8 g/dL 11/06/2015 Comp Metabolic Enm088 GLOB 2.5 g/dL 11/06/2015 Comp Metabolic Xzd363 A/G Ratio 1.7 Ratio 11/06/2015 Comp Metabolic Ufo871 Osmo 278 mOsmo 11/06/2015 Lipid Ord30 CHOL 152 mg/dL 11/06/2015 Lipid Ord30 HDL 48.0 mg/dl 11/06/2015 Lipid Ord30 TRIG 79 mg/dL 11/06/2015 Lipid Ord30 LDL 88 mg/dL 11/06/2015 Lipid Ord30 C/HDL 3.2 Ratio 11/06/2015 %Hba1C Owx740 % HbA1c 30836-6 7.3 % 11/06/2015 %Hba1C Vgl127 Gluc Ave 163 mg/dL 11/06/2015 Cbc With Differential Ord2 WBC 8.97 K/ul 06/05/2015 Cbc With Differential Ord2 RBC 4.88 M/ul 06/05/2015 Cbc With Differential Ord2 HGB 16.0 g/dl 06/05/2015 Cbc With Differential Ord2 HCT 46.7 % 06/05/2015 Cbc With Differential Ord2 Neut% 66.8 % 06/05/2015 Cbc With Differential Ord2 MCV 95.7 fl 06/05/2015 Cbc With Differential Ord2 Lymph% 22.0 % 06/05/2015 Cbc With Differential Ord2 MCH 32.8 pg 06/05/2015 Cbc With Differential Ord2 [place]% 9.8 % 06/05/2015 Cbc With Differential Ord2 MCHC 34.3 pg 06/05/2015 Cbc With Differential Ord2 Eos% 1.0 % 06/05/2015 Cbc With Differential Ord2 Baso% 0.4 % 06/05/2015 Cbc With Differential Ord2 PLT 375 K/ul 06/05/2015 Cbc With Differential Ord2 Neut ABS# 5.99 K/ul 06/05/2015 Cbc With Differential Ord2 RDW 12.9 % 06/05/2015 Cbc With Differential Ord2 Lymph ABS# 1.97 K/ul 06/05/2015 Cbc With Differential Ord2 [place] ABS# 0.9 K/ul 06/05/2015 Cbc With Differential Ord2 Eos ABS# 0.1 K/ul 06/05/2015 Cbc With Differential Ord2 Baso ABS# 0.0 K/ul 06/05/2015 Cbc With Differential Ord2 New Analyzer Notice Please note new ref ranges starting 04-16-2015 due to implemntation of new five part differential hematolgy analyzer. 06/05/2015 %Hba1C Hds448 % HbA1c 37958-2 7.1 % 05/08/2015 %Hba1C Gfp689 Gluc Ave 157 mg/dL 05/08/2015 Microalbumin Xfw791 MicroAlb 1.2 mg/dL 05/01/2015 Cbc With Differential Ord2 WBC 8.43 K/ul 04/30/2015 Cbc With Differential Ord2 RBC 5.25 M/ul 04/30/2015 Cbc With Differential Ord2 HGB 17.4 g/dl 04/30/2015 Cbc With Differential Ord2 HCT 50.7 % 04/30/2015 Cbc With Differential Ord2 Neut% 58.0 % 04/30/2015 Cbc With Differential Ord2 Lymph% 28.6 % 04/30/2015 Cbc With Differential Ord2 MCV 96.6 fl 04/30/2015 Cbc With Differential Ord2 MCH 33.1 pg 04/30/2015 Cbc With Differential Ord2 [place]% 11.2 % 04/30/2015 Cbc With Differential Ord2 Eos% 2.0 % 04/30/2015 Cbc With Differential Ord2 MCHC 34.3 pg 04/30/2015 Cbc With Differential Ord2 PLT 374 K/ul 04/30/2015 Cbc With Differential Ord2 Baso% 0.2 % 04/30/2015 Cbc With Differential Ord2 RDW 13.0 % 04/30/2015 Cbc With Differential Ord2 Neut ABS# 4.89 K/ul 04/30/2015 Cbc With Differential Ord2 Lymph ABS# 2.41 K/ul 04/30/2015 Cbc With Differential Ord2 [place] ABS# 0.9 K/ul 04/30/2015 Cbc With Differential Ord2 Eos ABS# 0.2 K/ul 04/30/2015 Cbc With Differential Ord2 Baso ABS# 0.0 K/ul 04/30/2015 Cbc With Differential Ord2 New Analyzer Notice Please note new ref ranges starting 04-16-2015 due to implemntation of new five part differential hematolgy analyzer. 04/30/2015 Lipid Ord30 CHOL 150 mg/dL 04/30/2015 Lipid Ord30 HDL 55.0 mg/dl 04/30/2015 Lipid Ord30 TRIG 78 mg/dL 04/30/2015 Lipid Ord30 LDL 79 mg/dL 04/30/2015 Lipid Ord30 C/HDL 2.7 Ratio 04/30/2015 Tsh Ord6 hTSH II 1.35 uIU/mL 04/30/2015 Comp Metabolic Wmc857 NA 136 mEq/L 04/30/2015 Comp Metabolic Dpg109 K 4.5 mEq/L 04/30/2015 Comp Metabolic Trr839 CL 100 mEq/L 04/30/2015 Comp Metabolic Awr806 CO2 28.0 mEq/L 04/30/2015 Comp Metabolic Wlz460 ANION GAP 13 04/30/2015 Comp Metabolic Fvf725 GLUCOSE 162 mg/dL 04/30/2015 Comp Metabolic Azq860 Creat 1.2 mg/dL 04/30/2015 Comp Metabolic Iok240 eGFR 62 ml/min/1.73m2 04/30/2015 Comp Metabolic Gxb638 BUN 21 mg/dL 04/30/2015 Comp Metabolic Ufn366 B/C Ratio 17.4 Ratio 04/30/2015 Comp Metabolic Bcw105 CALCIUM 9.9 mg/dL 04/30/2015 Comp Metabolic Xox025 ALK PHOS 51 U/L 04/30/2015 Comp Metabolic Kwp820 AST(SGOT) 18 U/L 04/30/2015 Comp Metabolic Yyc595 ALT(SGPT) 23 U/L 04/30/2015 Comp Metabolic Unx453 BILI T 0.5 mg/dL 04/30/2015 Comp Metabolic Lpm975 ALBUMIN 4.2 g/dL 04/30/2015 Comp Metabolic Aiw812 TPRO 6.9 g/dL 04/30/2015 Comp Metabolic Elv277 GLOB 2.7 g/dL 04/30/2015 Comp Metabolic Zyd323 A/G Ratio 1.6 Ratio 04/30/2015 Comp Metabolic Uik184 Osmo 278 mOsmo 04/30/2015 Metabolic Ord15 NA 136 mEq/L 01/28/2015 Metabolic Ord15 K 4.1 mEq/L 01/28/2015 Metabolic Ord15 CL 101 mEq/L 01/28/2015 Metabolic Ord15 CO2 29.0 mEq/L 01/28/2015 Metabolic Ord15 GLUCOSE 168 mg/dL 01/28/2015 Metabolic Ord15 BUN 19 mg/dL 01/28/2015 Metabolic Ord15 Creat 1.2 mg/dL 01/28/2015 Metabolic Ord15 B/C Ratio 16.5 Ratio 01/28/2015 Metabolic Ord15 eGFR 66 ml/min/1.73m2 01/28/2015 Metabolic Ord15 Osmo 278 mOsmo 01/28/2015 Metabolic Ord15 ANION GAP 10 01/28/2015 Metabolic Ord15 CALCIUM 9.7 mg/dL 01/28/2015 Cbc With Differential Ord2 WBC 7.5 K/uL 01/28/2015 Cbc With Differential Ord2 LYM 1.9 K/uL 01/28/2015 Cbc With Differential Ord2 LYM% 25.9 % 01/28/2015 Cbc With Differential Ord2 NEUT/GRAN 5.1 K/uL 01/28/2015 Cbc With Differential Ord2 NEUT/GRAN % 67.6 % 01/28/2015 Cbc With Differential Ord2 MID 0.5 K/uL 01/28/2015 Cbc With Differential Ord2 MID% 6.5 % 01/28/2015 Cbc With Differential Ord2 RBC 5.04 M/uL 01/28/2015 Cbc With Differential Ord2 HGB 16.5 g/dL 01/28/2015 Cbc With Differential Ord2 HCT 50.4 % 01/28/2015 Cbc With Differential Ord2 MCV 100 fL 01/28/2015 Cbc With Differential Ord2 MCH 33 pg 01/28/2015 Cbc With Differential Ord2 MCHC 33 g/dL 01/28/2015 Cbc With Differential Ord2 PLT 349 K/uL 01/28/2015 Cbc With Differential Ord2 RDW 13.6 % 01/28/2015 %Hba1C Zdw577 % HbA1c 99502-4 7.3 % 01/28/2015 %Hba1C Kwm990 Gluc Ave 163 mg/dL 01/28/2015 %Hba1C Uad060 % HbA1c 60492-1 7.8 % 10/24/2014 %Hba1C Qcb894 Gluc Ave 177 mg/dL 10/24/2014 Cbc With Differential Ord2 WBC 8.9 K/uL 10/23/2014 Cbc With Differential Ord2 LYM 1.4 K/uL 10/23/2014 Cbc With Differential Ord2 LYM% 15.4 % 10/23/2014 Cbc With Differential Ord2 NEUT/GRAN 7.0 K/uL 10/23/2014 Cbc With Differential Ord2 NEUT/GRAN % 79.2 % 10/23/2014 Cbc With Differential Ord2 MID 0.5 K/uL 10/23/2014 Cbc With Differential Ord2 MID% 5.4 % 10/23/2014 Cbc With Differential Ord2 RBC 5.10 M/uL 10/23/2014 Cbc With Differential Ord2 HGB 17.3 g/dL 10/23/2014 Cbc With Differential Ord2 HCT 50.1 % 10/23/2014 Cbc With Differential Ord2 MCV 98 fL 10/23/2014 Cbc With Differential Ord2 MCH 34 pg 10/23/2014 Cbc With Differential Ord2 MCHC 35 g/dL 10/23/2014 Cbc With Differential Ord2 PLT 378 K/uL 10/23/2014 Cbc With Differential Ord2 RDW 13.7 % 10/23/2014 Comp Metabolic Gxf521 NA 135 mEq/L 10/23/2014 Comp Metabolic Eyr306 K 4.4 mEq/L 10/23/2014 Comp Metabolic Xou005 CL 99 mEq/L 10/23/2014 Comp Metabolic Ucc050 CO2 31.0 mEq/L 10/23/2014 Comp Metabolic Bro702 ANION GAP 9 10/23/2014 Comp Metabolic Qlc329 GLUCOSE 203 mg/dL 10/23/2014 Comp Metabolic Tbb069 Creat 1.1 mg/dL 10/23/2014 Comp Metabolic Bds113 eGFR 72 ml/min/1.73m2 10/23/2014 Comp Metabolic Fdf956 BUN 19 mg/dL 10/23/2014 Comp Metabolic Bsr378 B/C Ratio 17.8 Ratio 10/23/2014 Comp Metabolic Hcp217 CALCIUM 10.2 mg/dL 10/23/2014 Comp Metabolic Hcm401 ALK PHOS 55 U/L 10/23/2014 Comp Metabolic Gau546 AST(SGOT) 22 U/L 10/23/2014 Comp Metabolic Nrc782 ALT(SGPT) 34 U/L 10/23/2014 Comp Metabolic Loi184 BILI T 0.8 mg/dL 10/23/2014 Comp Metabolic Uxb055 ALBUMIN 4.3 g/dL 10/23/2014 Comp Metabolic Ilz091 TPRO 6.7 g/dL 10/23/2014 Comp Metabolic Mfa251 GLOB 2.4 g/dL 10/23/2014 Comp Metabolic Wns132 A/G Ratio 1.8 Ratio 10/23/2014 Comp Metabolic Ora196 Osmo 278 mOsmo 10/23/2014 Review of Systems System Result Effective Dates Constitutional No recent illness 2017 Constitutional No chills 03/07/2018 Constitutional No fatigue 03/07/2018 Constitutional No fever 03/07/2018 Constitutional No insomnia 03/07/2018 Constitutional No malaise 03/07/2018 Ears/Nose/Throat/Neck No dental pain 07/2017 Ears/Nose/Throat/Neck No dizziness 2017 Ears/Nose/Throat/Neck No dysphagia 2017 Ears/Nose/Throat/Neck No headache 2017 Ears/Nose/Throat/Neck No hearing loss 07/2017 Ears/Nose/Throat/Neck No nasal allergies 03/07/2018 Ears/Nose/Throat/Neck No sore throat 07/2017 Ears/Nose/Throat/Neck No postnasal drip 03/07/2018 Ears/Nose/Throat/Neck No sinus congestion 03/07/2018 Cardiovascular No chest pain/pressure 07/2017 Cardiovascular No dyspnea 03/07/2018 Cardiovascular No edema 03/07/2018 Cardiovascular No exercise intolerance Cardiovascular No fatigue 03/07/2018 Cardiovascular No near-syncope/dizziness 03/07/2018 Respiratory No chest tightness 2017 Respiratory No cough 03/07/2018 Respiratory No dyspnea 03/07/2018 Respiratory No pedal edema 03/07/2018 Gastrointestinal No abdominal pain 2017 Gastrointestinal No constipation 2017 Gastrointestinal No diarrhea 03/07/2018 Gastrointestinal No gastroesophageal reflux 03/07/2018 Gastrointestinal No nausea 03/07/2018 Gastrointestinal No vomiting 03/07/2018 Genitourinary/Nephrology chronic renal failure 03/07/2018 Musculoskeletal No stiffness 03/07/2018 Musculoskeletal No swelling 03/07/2018 Musculoskeletal No muscle weakness 2017 Musculoskeletal No myalgias 03/07/2018 Dermatologic No rash 03/07/2018 Dermatologic No scar 03/07/2018 Psychiatric No anxiety 03/07/2018 Psychiatric No depression 03/07/2018 Endocrine diabetes mellitus type 2 2017 Constitutional No recent illness 2017 Constitutional No chills 01/30/2018 Constitutional No fatigue 01/30/2018 Constitutional No fever 01/30/2018 Constitutional No insomnia 01/30/2018 Constitutional No malaise 01/30/2018 Ears/Nose/Throat/Neck No dental pain Ears/Nose/Throat/Neck No dizziness 2017 Ears/Nose/Throat/Neck No dysphagia 2017 Ears/Nose/Throat/Neck No headache 2017 Ears/Nose/Throat/Neck No hearing loss Ears/Nose/Throat/Neck No nasal allergies 01/30/2018 Ears/Nose/Throat/Neck No sore throat Ears/Nose/Throat/Neck No postnasal drip 01/30/2018 Ears/Nose/Throat/Neck No sinus congestion 01/30/2018 Cardiovascular No chest pain/pressure Cardiovascular No dyspnea 01/30/2018 Cardiovascular No edema 01/30/2018 Cardiovascular No exercise intolerance Cardiovascular No fatigue 01/30/2018 Cardiovascular No near-syncope/dizziness 01/30/2018 Respiratory No chest tightness 2017 Respiratory No cough 01/30/2018 Respiratory No dyspnea 01/30/2018 Respiratory No pedal edema 01/30/2018 Gastrointestinal No abdominal pain 2017 Gastrointestinal No constipation 2017 Gastrointestinal No diarrhea 01/30/2018 Gastrointestinal No gastroesophageal reflux 01/30/2018 Gastrointestinal No nausea 01/30/2018 Gastrointestinal No vomiting 01/30/2018 Musculoskeletal No stiffness 01/30/2018 Musculoskeletal No swelling 01/30/2018 Musculoskeletal No muscle weakness 2017 Musculoskeletal No myalgias 01/30/2018 Dermatologic No rash 01/30/2018 Dermatologic No scar 01/30/2018 Psychiatric No anxiety 01/30/2018 Psychiatric No depression 01/30/2018 Endocrine diabetes mellitus type 2 2017 Genitourinary/Nephrology chronic renal failure 01/30/2018 Constitutional No recent illness 2017 Constitutional No chills 09/07/2017 Constitutional No fatigue 09/07/2017 Constitutional No fever 09/07/2017 Constitutional No insomnia 09/07/2017 Constitutional No malaise 09/07/2017 Cardiovascular No chest pain/pressure 09/2017 Cardiovascular No dyspnea 09/07/2017 Cardiovascular No edema 09/07/2017 Cardiovascular No exercise intolerance Cardiovascular No fatigue 09/07/2017 Cardiovascular No near-syncope/dizziness 09/07/2017 Respiratory No chest tightness 2017 Respiratory No cough 09/07/2017 Respiratory No dyspnea 09/07/2017 Respiratory No pedal edema 09/07/2017 Gastrointestinal No abdominal pain 2017 Gastrointestinal No constipation 2017 Gastrointestinal No diarrhea 09/07/2017 Gastrointestinal No gastroesophageal reflux 09/07/2017 Gastrointestinal No nausea 09/07/2017 Gastrointestinal No vomiting 09/07/2017 Musculoskeletal No stiffness 09/07/2017 Musculoskeletal No swelling 09/07/2017 Musculoskeletal No muscle weakness 2017 Musculoskeletal No myalgias 09/07/2017 Psychiatric No anxiety 09/07/2017 Psychiatric No depression 09/07/2017 Endocrine diabetes mellitus type 2 2017 Ears/Nose/Throat/Neck No dental pain 09/2017 Ears/Nose/Throat/Neck No dizziness 2017 Ears/Nose/Throat/Neck No dysphagia 2017 Ears/Nose/Throat/Neck No headache 2017 Ears/Nose/Throat/Neck No hearing loss 09/2017 Ears/Nose/Throat/Neck No nasal allergies 09/07/2017 Ears/Nose/Throat/Neck No sore throat 09/2017 Ears/Nose/Throat/Neck No postnasal drip 09/07/2017 Ears/Nose/Throat/Neck No sinus congestion 09/07/2017 Dermatologic No rash 09/07/2017 Dermatologic No scar 09/07/2017 Constitutional No recent illness 2017 Constitutional No chills 05/05/2017 Constitutional No fatigue 05/05/2017 Constitutional No fever 05/05/2017 Constitutional No insomnia 05/05/2017 Constitutional No malaise 05/05/2017 Cardiovascular No chest pain/pressure 04/2017 Cardiovascular No dyspnea 05/05/2017 Cardiovascular No edema 05/05/2017 Cardiovascular No exercise intolerance Cardiovascular No fatigue 05/05/2017 Cardiovascular No near-syncope/dizziness 05/05/2017 Respiratory No chest tightness 2017 Respiratory No cough 05/05/2017 Respiratory No dyspnea 05/05/2017 Respiratory No pedal edema 05/05/2017 Gastrointestinal No abdominal pain 2017 Gastrointestinal No constipation 2017 Gastrointestinal No diarrhea 05/05/2017 Gastrointestinal No gastroesophageal reflux 05/05/2017 Gastrointestinal No nausea 05/05/2017 Gastrointestinal No vomiting 05/05/2017 Musculoskeletal No stiffness 05/05/2017 Musculoskeletal No swelling 05/05/2017 Musculoskeletal No muscle weakness 2017 Musculoskeletal No myalgias 05/05/2017 Psychiatric No anxiety 05/05/2017 Psychiatric No depression 05/05/2017 Endocrine diabetes mellitus type 2 2017 Constitutional No recent illness 2016 Constitutional No chills 03/15/2017 Constitutional No diaphoresis 03/15/2017 Constitutional No fever 03/15/2017 Eyes No eye erythema 03/15/2017 Ears/Nose/Throat/Neck No nasal discharge 03/15/2017 Cardiovascular No chest pain/pressure 03/2017 Cardiovascular No dyspnea 03/15/2017 Respiratory No cough 03/15/2017 Respiratory No dyspnea 03/15/2017 Neurologic No alteration of consciousness 03/15/2017 Neurologic No mental status change 2016 Constitutional No recent illness 2016 Constitutional No chills 02/02/2017 Constitutional No fatigue 02/02/2017 Constitutional No fever 02/02/2017 Constitutional No insomnia 02/02/2017 Constitutional No malaise 02/02/2017 Cardiovascular No chest pain/pressure 04/2016 Cardiovascular No dyspnea 02/02/2017 Cardiovascular No edema 02/02/2017 Cardiovascular No exercise intolerance Cardiovascular No fatigue 02/02/2017 Cardiovascular No near-syncope/dizziness 02/02/2017 Respiratory No chest tightness 2016 Respiratory No cough 02/02/2017 Respiratory No dyspnea 02/02/2017 Respiratory No pedal edema 02/02/2017 Gastrointestinal No abdominal pain 2016 Gastrointestinal No constipation 2016 Gastrointestinal No diarrhea 02/02/2017 Gastrointestinal No gastroesophageal reflux 02/02/2017 Gastrointestinal No nausea 02/02/2017 Gastrointestinal No vomiting 02/02/2017 Musculoskeletal No stiffness 02/02/2017 Musculoskeletal No swelling 02/02/2017 Musculoskeletal No muscle weakness 2016 Musculoskeletal No myalgias 02/02/2017 Psychiatric No anxiety 02/02/2017 Psychiatric No depression 02/02/2017 Endocrine diabetes mellitus type 2 2016 Constitutional No recent illness 2016 Constitutional No chills 01/04/2017 Constitutional No fatigue 01/04/2017 Constitutional No fever 01/04/2017 Constitutional No insomnia 01/04/2017 Constitutional No malaise 01/04/2017 Ears/Nose/Throat/Neck hearing loss 2016 Ears/Nose/Throat/Neck No nasal allergies 01/04/2017 Ears/Nose/Throat/Neck No sore throat 06/2016 Ears/Nose/Throat/Neck No postnasal drip 01/04/2017 Ears/Nose/Throat/Neck No sinus congestion 01/04/2017 Cardiovascular No chest pain/pressure 06/2016 Cardiovascular No dyspnea 01/04/2017 Cardiovascular No edema 01/04/2017 Cardiovascular No exercise intolerance Cardiovascular No fatigue 01/04/2017 Cardiovascular No near-syncope/dizziness 01/04/2017 Respiratory No chest tightness 2016 Respiratory No cough 01/04/2017 Respiratory No dyspnea 01/04/2017 Respiratory No pedal edema 01/04/2017 Gastrointestinal No abdominal pain 2016 Gastrointestinal No constipation 2016 Gastrointestinal No diarrhea 01/04/2017 Gastrointestinal No gastroesophageal reflux 01/04/2017 Gastrointestinal No nausea 01/04/2017 Gastrointestinal No vomiting 01/04/2017 Musculoskeletal No stiffness 01/04/2017 Musculoskeletal No swelling 01/04/2017 Musculoskeletal No muscle weakness 2016 Musculoskeletal No myalgias 01/04/2017 Psychiatric No anxiety 01/04/2017 Psychiatric No depression 01/04/2017 Endocrine diabetes mellitus type 2 2016 Constitutional No recent illness 2016 Constitutional No chills 11/16/2016 Constitutional No fatigue 11/16/2016 Constitutional No fever 11/16/2016 Constitutional No insomnia 11/16/2016 Constitutional No malaise 11/16/2016 Eyes No blindness 11/16/2016 Eyes No vision change 11/16/2016 Ears/Nose/Throat/Neck No dental pain Ears/Nose/Throat/Neck No dizziness 2016 Ears/Nose/Throat/Neck No dysphagia 2016 Ears/Nose/Throat/Neck No headache 2016 Ears/Nose/Throat/Neck hearing loss 2016 Ears/Nose/Throat/Neck No nasal allergies 11/16/2016 Ears/Nose/Throat/Neck No sore throat Ears/Nose/Throat/Neck No postnasal drip 11/16/2016 Ears/Nose/Throat/Neck No sinus congestion 11/16/2016 Cardiovascular No chest pain/pressure Cardiovascular No dyspnea 11/16/2016 Cardiovascular No edema 11/16/2016 Cardiovascular No exercise intolerance Cardiovascular No fatigue 11/16/2016 Cardiovascular No near-syncope/dizziness 11/16/2016 Respiratory No chest tightness 2016 Respiratory No cough 11/16/2016 Respiratory No dyspnea 11/16/2016 Respiratory No pedal edema 11/16/2016 Gastrointestinal No abdominal pain 2016 Gastrointestinal No constipation 2016 Gastrointestinal No diarrhea 11/16/2016 Gastrointestinal No gastroesophageal reflux 11/16/2016 Gastrointestinal No nausea 11/16/2016 Gastrointestinal No vomiting 11/16/2016 Genitourinary/Nephrology No dysuria 11/16 Genitourinary/Nephrology No nocturia Genitourinary/Nephrology No urinary incontinence 11/16/2016 Musculoskeletal No stiffness 11/16/2016 Musculoskeletal No swelling 11/16/2016 Musculoskeletal No muscle weakness 2016 Musculoskeletal No myalgias 11/16/2016 Dermatologic No rash 11/16/2016 Dermatologic No sores 11/16/2016 Dermatologic No scar 11/16/2016 Neurologic No dizziness 11/16/2016 Neurologic No headache 11/16/2016 Neurologic No neck pain 11/16/2016 Neurologic No syncope 11/16/2016 Psychiatric No anxiety 11/16/2016 Psychiatric No depression 11/16/2016 Constitutional No recent illness 2016 Constitutional No chills 07/19/2016 Constitutional No fatigue 07/19/2016 Constitutional No fever 07/19/2016 Constitutional No insomnia 07/19/2016 Constitutional No malaise 07/19/2016 Eyes No blindness 07/19/2016 Eyes No vision change 07/19/2016 Ears/Nose/Throat/Neck No dental pain Ears/Nose/Throat/Neck No dizziness 2016 Ears/Nose/Throat/Neck No dysphagia 2016 Ears/Nose/Throat/Neck No headache 2016 Ears/Nose/Throat/Neck hearing loss 2016 Ears/Nose/Throat/Neck No nasal allergies 07/19/2016 Ears/Nose/Throat/Neck No sore throat Ears/Nose/Throat/Neck No postnasal drip 07/19/2016 Ears/Nose/Throat/Neck No sinus congestion 07/19/2016 Cardiovascular No chest pain/pressure Cardiovascular No dyspnea 07/19/2016 Cardiovascular No edema 07/19/2016 Cardiovascular No exercise intolerance Cardiovascular No fatigue 07/19/2016 Cardiovascular No near-syncope/dizziness 07/19/2016 Respiratory No chest tightness 2016 Respiratory No cough 07/19/2016 Respiratory No dyspnea 07/19/2016 Respiratory No pedal edema 07/19/2016 Gastrointestinal No abdominal pain 2016 Gastrointestinal No constipation 2016 Gastrointestinal No diarrhea 07/19/2016 Gastrointestinal No gastroesophageal reflux 07/19/2016 Gastrointestinal No nausea 07/19/2016 Gastrointestinal No vomiting 07/19/2016 Genitourinary/Nephrology No dysuria 07/19 Genitourinary/Nephrology No nocturia Genitourinary/Nephrology No urinary incontinence 07/19/2016 Musculoskeletal No stiffness 07/19/2016 Musculoskeletal No swelling 07/19/2016 Musculoskeletal No muscle weakness 2016 Musculoskeletal No myalgias 07/19/2016 Dermatologic No rash 07/19/2016 Dermatologic No sores 07/19/2016 Dermatologic No scar 07/19/2016 Neurologic No dizziness 07/19/2016 Neurologic No headache 07/19/2016 Neurologic No neck pain 07/19/2016 Neurologic No syncope 07/19/2016 Psychiatric No anxiety 07/19/2016 Psychiatric No depression 07/19/2016 Constitutional No recent illness 2015 Constitutional No chills 03/12/2016 Constitutional No fever 03/12/2016 Eyes No eye erythema 03/12/2016 Eyes No vision change 03/12/2016 Ears/Nose/Throat/Neck No nasal allergies 03/12/2016 Ears/Nose/Throat/Neck No sore throat 12/2015 Ears/Nose/Throat/Neck No postnasal drip 03/12/2016 Ears/Nose/Throat/Neck No sinus congestion 03/12/2016 Cardiovascular No chest pain/pressure 12/2015 Cardiovascular No dyspnea 03/12/2016 Respiratory No cough 03/12/2016 Respiratory No dyspnea 03/12/2016 Gastrointestinal No abdominal pain 2015 Gastrointestinal No constipation 2015 Gastrointestinal No diarrhea 03/12/2016 Gastrointestinal No gastroesophageal reflux 03/12/2016 Gastrointestinal No nausea 03/12/2016 Gastrointestinal No vomiting 03/12/2016 Dermatologic No rash 03/12/2016 Dermatologic No sores 03/12/2016 Constitutional No malaise 03/12/2016 Ears/Nose/Throat/Neck hearing loss 2015 Ears/Nose/Throat/Neck No nasal discharge 03/12/2016 Respiratory No chest congestion 2015 Musculoskeletal No joint complaint 2015 Neurologic No alteration of consciousness 03/12/2016 Neurologic No mental status change 2015 Constitutional No recent illness 2015 Constitutional No chills 03/10/2016 Constitutional No fatigue 03/10/2016 Constitutional No fever 03/10/2016 Constitutional No insomnia 03/10/2016 Constitutional No malaise 03/10/2016 Eyes No blindness 03/10/2016 Eyes No vision change 03/10/2016 Ears/Nose/Throat/Neck No dental pain 10/2015 Ears/Nose/Throat/Neck No dizziness 2015 Ears/Nose/Throat/Neck No dysphagia 2015 Ears/Nose/Throat/Neck No headache 2015 Ears/Nose/Throat/Neck hearing loss 2015 Ears/Nose/Throat/Neck No nasal allergies 03/10/2016 Ears/Nose/Throat/Neck No sore throat 10/2015 Ears/Nose/Throat/Neck No postnasal drip 03/10/2016 Ears/Nose/Throat/Neck No sinus congestion 03/10/2016 Cardiovascular No chest pain/pressure 10/2015 Cardiovascular No dyspnea 03/10/2016 Cardiovascular No edema 03/10/2016 Cardiovascular No exercise intolerance Cardiovascular No fatigue 03/10/2016 Cardiovascular No near-syncope/dizziness 03/10/2016 Respiratory No chest tightness 2015 Respiratory No cough 03/10/2016 Respiratory No dyspnea 03/10/2016 Respiratory No pedal edema 03/10/2016 Gastrointestinal No abdominal pain 2015 Gastrointestinal No constipation 2015 Gastrointestinal No diarrhea 03/10/2016 Gastrointestinal No gastroesophageal reflux 03/10/2016 Gastrointestinal No nausea 03/10/2016 Gastrointestinal No vomiting 03/10/2016 Genitourinary/Nephrology No dysuria 03/10 Genitourinary/Nephrology No nocturia 10/2015 Genitourinary/Nephrology No urinary incontinence 03/10/2016 Musculoskeletal No stiffness 03/10/2016 Musculoskeletal No swelling 03/10/2016 Musculoskeletal No muscle weakness 2015 Musculoskeletal No myalgias 03/10/2016 Dermatologic No rash 03/10/2016 Dermatologic No sores 03/10/2016 Dermatologic No scar 03/10/2016 Neurologic No dizziness 03/10/2016 Neurologic No headache 03/10/2016 Neurologic No neck pain 03/10/2016 Neurologic No syncope 03/10/2016 Psychiatric No anxiety 03/10/2016 Psychiatric No depression 03/10/2016 Constitutional No recent illness 2015 Constitutional No chills 11/06/2015 Constitutional No fatigue 11/06/2015 Constitutional No fever 11/06/2015 Constitutional No insomnia 11/06/2015 Constitutional No malaise 11/06/2015 Eyes No blindness 11/06/2015 Eyes No vision change 11/06/2015 Ears/Nose/Throat/Neck No dental pain 07/2015 Ears/Nose/Throat/Neck No dizziness 2015 Ears/Nose/Throat/Neck No dysphagia 2015 Ears/Nose/Throat/Neck No headache 2015 Ears/Nose/Throat/Neck hearing loss 2015 Ears/Nose/Throat/Neck No nasal allergies 11/06/2015 Ears/Nose/Throat/Neck No sore throat 07/2015 Ears/Nose/Throat/Neck No postnasal drip 11/06/2015 Ears/Nose/Throat/Neck No sinus congestion 11/06/2015 Cardiovascular No chest pain/pressure 07/2015 Cardiovascular No dyspnea 11/06/2015 Cardiovascular No edema 11/06/2015 Cardiovascular No exercise intolerance Cardiovascular No fatigue 11/06/2015 Cardiovascular No near-syncope/dizziness 11/06/2015 Respiratory No chest tightness 2015 Respiratory No cough 11/06/2015 Respiratory No dyspnea 11/06/2015 Respiratory No pedal edema 11/06/2015 Gastrointestinal No abdominal pain 2015 Gastrointestinal No constipation 2015 Gastrointestinal No diarrhea 11/06/2015 Gastrointestinal No gastroesophageal reflux 11/06/2015 Gastrointestinal No nausea 11/06/2015 Gastrointestinal No vomiting 11/06/2015 Genitourinary/Nephrology No dysuria 11/05 Genitourinary/Nephrology No nocturia 07/2015 Genitourinary/Nephrology No urinary incontinence 11/06/2015 Musculoskeletal No stiffness 11/06/2015 Musculoskeletal No swelling 11/06/2015 Musculoskeletal No muscle weakness 2015 Musculoskeletal No myalgias 11/06/2015 Dermatologic No rash 11/06/2015 Dermatologic No sores 11/06/2015 Dermatologic No scar 11/06/2015 Neurologic No dizziness 11/06/2015 Neurologic No headache 11/06/2015 Neurologic No neck pain 11/06/2015 Neurologic No syncope 11/06/2015 Psychiatric No anxiety 11/06/2015 Psychiatric No depression 11/06/2015 Constitutional No recent illness 2015 Constitutional No chills 08/26/2015 Constitutional No fatigue 08/26/2015 Constitutional No fever 08/26/2015 Constitutional No insomnia 08/26/2015 Constitutional No malaise 08/26/2015 Eyes No blindness 08/26/2015 Eyes No vision change 08/26/2015 Ears/Nose/Throat/Neck No dental pain Ears/Nose/Throat/Neck No dizziness 2015 Ears/Nose/Throat/Neck No dysphagia 2015 Ears/Nose/Throat/Neck No headache 2015 Ears/Nose/Throat/Neck hearing loss 2015 Ears/Nose/Throat/Neck No nasal allergies 08/26/2015 Ears/Nose/Throat/Neck No sore throat Ears/Nose/Throat/Neck No postnasal drip 08/26/2015 Ears/Nose/Throat/Neck No sinus congestion 08/26/2015 Cardiovascular No chest pain/pressure Cardiovascular No dyspnea 08/26/2015 Cardiovascular No edema 08/26/2015 Cardiovascular No exercise intolerance Cardiovascular No fatigue 08/26/2015 Cardiovascular No near-syncope/dizziness 08/26/2015 Respiratory No chest tightness 2015 Respiratory No cough 08/26/2015 Respiratory No dyspnea 08/26/2015 Respiratory No pedal edema 08/26/2015 Gastrointestinal No abdominal pain 2015 Gastrointestinal No constipation 2015 Gastrointestinal No diarrhea 08/26/2015 Gastrointestinal No gastroesophageal reflux 08/26/2015 Gastrointestinal No nausea 08/26/2015 Gastrointestinal No vomiting 08/26/2015 Genitourinary/Nephrology No dysuria 08/25 Genitourinary/Nephrology No nocturia Genitourinary/Nephrology No urinary incontinence 08/26/2015 Musculoskeletal No stiffness 08/26/2015 Musculoskeletal No swelling 08/26/2015 Musculoskeletal No muscle weakness 2015 Musculoskeletal No myalgias 08/26/2015 Dermatologic No rash 08/26/2015 Dermatologic No scar 08/26/2015 Neurologic No dizziness 08/26/2015 Neurologic No headache 08/26/2015 Neurologic No neck pain 08/26/2015 Neurologic No syncope 08/26/2015 Psychiatric No anxiety 08/26/2015 Psychiatric No depression 08/26/2015 Dermatologic No sores 08/26/2015 Constitutional No recent illness 2015 Constitutional No chills 07/29/2015 Constitutional No fatigue 07/29/2015 Constitutional No fever 07/29/2015 Constitutional No insomnia 07/29/2015 Constitutional No malaise 07/29/2015 Eyes No blindness 07/29/2015 Eyes vision change 07/29/2015 Ears/Nose/Throat/Neck No dental pain Ears/Nose/Throat/Neck No dizziness 2015 Ears/Nose/Throat/Neck No dysphagia 2015 Ears/Nose/Throat/Neck No headache 2015 Ears/Nose/Throat/Neck hearing loss 2015 Ears/Nose/Throat/Neck No nasal allergies 07/29/2015 Ears/Nose/Throat/Neck No sore throat Ears/Nose/Throat/Neck No postnasal drip 07/29/2015 Ears/Nose/Throat/Neck No sinus congestion 07/29/2015 Cardiovascular No chest pain/pressure Cardiovascular No dyspnea 07/29/2015 Cardiovascular No edema 07/29/2015 Cardiovascular No exercise intolerance Cardiovascular No fatigue 07/29/2015 Cardiovascular No near-syncope/dizziness 07/29/2015 Respiratory No chest tightness 2015 Respiratory No cough 07/29/2015 Respiratory No dyspnea 07/29/2015 Respiratory No pedal edema 07/29/2015 Gastrointestinal No abdominal pain 2015 Gastrointestinal No constipation 2015 Gastrointestinal No diarrhea 07/29/2015 Gastrointestinal No gastroesophageal reflux 07/29/2015 Gastrointestinal No nausea 07/29/2015 Gastrointestinal No vomiting 07/29/2015 Genitourinary/Nephrology No dysuria 07/28 Genitourinary/Nephrology No nocturia Genitourinary/Nephrology No urinary incontinence 07/29/2015 Musculoskeletal No stiffness 07/29/2015 Musculoskeletal No swelling 07/29/2015 Musculoskeletal No muscle weakness 2015 Musculoskeletal No myalgias 07/29/2015 Dermatologic mole change 07/29/2015 Dermatologic No rash 07/29/2015 Dermatologic sores 07/29/2015 Dermatologic No scar 07/29/2015 Neurologic No dizziness 07/29/2015 Neurologic No headache 07/29/2015 Neurologic No neck pain 07/29/2015 Neurologic No syncope 07/29/2015 Psychiatric No anxiety 07/29/2015 Psychiatric No depression 07/29/2015 Constitutional No recent illness 2015 Constitutional No chills 04/29/2015 Constitutional No fatigue 04/29/2015 Constitutional No fever 04/29/2015 Constitutional No insomnia 04/29/2015 Constitutional No malaise 04/29/2015 Eyes No blindness 04/29/2015 Eyes No vision change 04/29/2015 Ears/Nose/Throat/Neck No dental pain Ears/Nose/Throat/Neck No dizziness 2015 Ears/Nose/Throat/Neck No dysphagia 2015 Ears/Nose/Throat/Neck No headache 2015 Ears/Nose/Throat/Neck hearing loss 2015 Ears/Nose/Throat/Neck No nasal allergies 04/29/2015 Ears/Nose/Throat/Neck No sore throat Ears/Nose/Throat/Neck No postnasal drip 04/29/2015 Ears/Nose/Throat/Neck No sinus congestion 04/29/2015 Cardiovascular No chest pain/pressure Cardiovascular No dyspnea 04/29/2015 Cardiovascular No edema 04/29/2015 Cardiovascular No exercise intolerance Cardiovascular No fatigue 04/29/2015 Cardiovascular No near-syncope/dizziness 04/29/2015 Respiratory No chest tightness 2015 Respiratory No cough 04/29/2015 Respiratory No dyspnea 04/29/2015 Respiratory No pedal edema 04/29/2015 Gastrointestinal No abdominal pain 2015 Gastrointestinal No constipation 2015 Gastrointestinal No diarrhea 04/29/2015 Gastrointestinal No gastroesophageal reflux 04/29/2015 Gastrointestinal No nausea 04/29/2015 Gastrointestinal No vomiting 04/29/2015 Genitourinary/Nephrology No dysuria 04/29 Genitourinary/Nephrology No nocturia Genitourinary/Nephrology No urinary incontinence 04/29/2015 Musculoskeletal No stiffness 04/29/2015 Musculoskeletal No swelling 04/29/2015 Musculoskeletal No muscle weakness 2015 Musculoskeletal No myalgias 04/29/2015 Dermatologic mole change 04/29/2015 Dermatologic No rash 04/29/2015 Dermatologic sores 04/29/2015 Dermatologic No scar 04/29/2015 Neurologic No dizziness 04/29/2015 Neurologic No headache 04/29/2015 Neurologic No neck pain 04/29/2015 Neurologic No syncope 04/29/2015 Psychiatric No anxiety 04/29/2015 Psychiatric No depression 04/29/2015 Constitutional No recent illness 2014 Constitutional No chills 10/23/2014 Constitutional No fatigue 10/23/2014 Constitutional No fever 10/23/2014 Constitutional No insomnia 10/23/2014 Constitutional No malaise 10/23/2014 Eyes No blindness 10/23/2014 Eyes No vision change 10/23/2014 Ears/Nose/Throat/Neck No dental pain Ears/Nose/Throat/Neck No dizziness 2014 Ears/Nose/Throat/Neck No dysphagia 2014 Ears/Nose/Throat/Neck No headache 2014 Ears/Nose/Throat/Neck hearing loss 2014 Ears/Nose/Throat/Neck No nasal allergies 10/23/2014 Ears/Nose/Throat/Neck No sore throat Ears/Nose/Throat/Neck No postnasal drip 10/23/2014 Ears/Nose/Throat/Neck No sinus congestion 10/23/2014 Cardiovascular No chest pain/pressure Cardiovascular No dyspnea 10/23/2014 Cardiovascular No edema 10/23/2014 Cardiovascular No exercise intolerance Cardiovascular No fatigue 10/23/2014 Cardiovascular No near-syncope/dizziness 10/23/2014 Respiratory No chest tightness 2014 Respiratory No cough 10/23/2014 Respiratory No dyspnea 10/23/2014 Respiratory No pedal edema 10/23/2014 Gastrointestinal No abdominal pain 2014 Gastrointestinal No constipation 2014 Gastrointestinal No diarrhea 10/23/2014 Gastrointestinal No gastroesophageal reflux 10/23/2014 Gastrointestinal No nausea 10/23/2014 Gastrointestinal No vomiting 10/23/2014 Genitourinary/Nephrology No dysuria 10/23 Genitourinary/Nephrology No nocturia Genitourinary/Nephrology No urinary incontinence 10/23/2014 Musculoskeletal No stiffness 10/23/2014 Musculoskeletal No swelling 10/23/2014 Musculoskeletal No muscle weakness 2014 Musculoskeletal No myalgias 10/23/2014 Dermatologic No rash 10/23/2014 Dermatologic sores 10/23/2014 Dermatologic No scar 10/23/2014 Neurologic No dizziness 10/23/2014 Neurologic No headache 10/23/2014 Neurologic No neck pain 10/23/2014 Neurologic No syncope 10/23/2014 Psychiatric No anxiety 10/23/2014 Psychiatric No depression 10/23/2014 Dermatologic mole change 10/23/2014 Physical Exam Exam Name System Name Item Name Status Result Effective Dates Notes Full Exam - General 1994 Constitutional general appearance Development: well developed 03/07/2018 None Full Exam - General 1994 Constitutional general appearance Development: appears stated age 1203/07/2018 None Full Exam - General 1994 Constitutional general appearance Hygiene/Attention to Grooming: good hygiene 03/07/2018 None Full Exam - General 1994 Eyes pupils and irises Overall: pupils equal, round, reactive to light and accomodation 03/07/2018 None Full Exam - General 1994 Ears/Nose/Throat oral cavity/pharynx/larynx Overall: oral mucosa clear 03/07/2018 None Full Exam - General 1994 Ears/Nose/Throat oral cavity/pharynx/larynx Overall: oropharyngeal mucosa clear 03/07/2018 None Full Exam - General 1994 Ears/Nose/Throat oral cavity/pharynx/larynx Overall: hypopharynx benign 03/07/2018 None Full Exam - General 1994 Ears/Nose/Throat oral cavity/pharynx/larynx Overall: no masses 03/07/2018 None Full Exam - General 1994 Respiratory auscultation Overall: breath sounds clear bilaterally 03/07/2018 None Full Exam - General 1994 Respiratory respiratory effort/rhythm Overall: no retractions 03/07/2018 None Full Exam - General 1994 Respiratory respiratory effort/rhythm Overall: normal rate 03/07/2018 None Full Exam - General 1994 Cardiovascular extremities Overall: no clubbing 03/07/2018 None Full Exam - General 1994 Cardiovascular auscultation of heart Overall: regular rate 03/07/2018 None Full Exam - General 1994 Cardiovascular auscultation of heart Overall: normal heart sounds 03/07/2018 None Full Exam - General 1994 Abdomen abdominal exam Overall: no tenderness 03/07/2018 None Full Exam - General 1994 Abdomen abdominal exam Overall: normal bowel sounds 03/07/2018 None Full Exam - General 1994 Musculoskeletal spine, ribs and pelvis Overall: good posture 03/07/2018 None Full Exam - General 1994 Musculoskeletal head and neck Overall: cervical spine benign 03/07/2018 None Full Exam - General 1994 Psychiatric orientation/consciousness Overall: oriented to person, place and time 03/07/2018 None Full Exam - General 1994 Psychiatric mood and affect Overall: normal mood and affect 03/07/2018 None Full Exam - General 1994 Integument inspection of skin Location: ear 03/07/2018 bilateral helix - actinic keratosis treated with cryotherapy x 3 on right ear 1 site, left ear 2 sites Full Exam - General 1994 Integument inspection of skin Location: face 03/07/2018 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 Full Exam - General 1994 Integument inspection of skin Location: scalp 03/07/2018 posterior scalp scabbed keratotic lesion - treated with cryotherapy x 3 Full Exam - General 1994 Constitutional general appearance Development: well developed 01/30/2018 None Full Exam - General 1994 Constitutional general appearance Development: appears stated age 1001/30/2018 None Full Exam - General 1994 Constitutional general appearance Hygiene/Attention to Grooming: good hygiene 01/30/2018 None Full Exam - General 1994 Eyes pupils and irises Overall: pupils equal, round, reactive to light and accomodation 01/30/2018 None Full Exam - General 1994 Ears/Nose/Throat oral cavity/pharynx/larynx Overall: oral mucosa clear 01/30/2018 None Full Exam - General 1994 Ears/Nose/Throat oral cavity/pharynx/larynx Overall: oropharyngeal mucosa clear 01/30/2018 None Full Exam - General 1994 Ears/Nose/Throat oral cavity/pharynx/larynx Overall: hypopharynx benign 01/30/2018 None Full Exam - General 1994 Ears/Nose/Throat oral cavity/pharynx/larynx Overall: no masses 01/30/2018 None Full Exam - General 1994 Respiratory auscultation Overall: breath sounds clear bilaterally 01/30/2018 None Full Exam - General 1994 Respiratory respiratory effort/rhythm Overall: no retractions 01/30/2018 None Full Exam - General 1994 Respiratory respiratory effort/rhythm Overall: normal rate 01/30/2018 None Full Exam - General 1994 Cardiovascular extremities Overall: no clubbing 01/30/2018 None Full Exam - General 1994 Cardiovascular auscultation of heart Overall: regular rate 01/30/2018 None Full Exam - General 1994 Cardiovascular auscultation of heart Overall: normal heart sounds 01/30/2018 None Full Exam - General 1994 Abdomen abdominal exam Overall: no tenderness 01/30/2018 None Full Exam - General 1994 Abdomen abdominal exam Overall: normal bowel sounds 01/30/2018 None Full Exam - General 1994 Musculoskeletal spine, ribs and pelvis Overall: good posture 01/30/2018 None Full Exam - General 1994 Musculoskeletal head and neck Overall: cervical spine benign 01/30/2018 None Full Exam - General 1994 Psychiatric orientation/consciousness Overall: oriented to person, place and time 01/30/2018 None Full Exam - General 1994 Psychiatric mood and affect Overall: normal mood and affect 01/30/2018 None Full Exam - General 1994 Constitutional general appearance Development: well developed 09/07/2017 None Full Exam - General 1994 Constitutional general appearance Development: appears stated age 0609/07/2017 None Full Exam - General 1994 Constitutional general appearance Hygiene/Attention to Grooming: good hygiene 09/07/2017 None Full Exam - General 1994 Ears/Nose/Throat oral cavity/pharynx/larynx Overall: oral mucosa clear 09/07/2017 None Full Exam - General 1994 Ears/Nose/Throat oral cavity/pharynx/larynx Overall: oropharyngeal mucosa clear 09/07/2017 None Full Exam - General 1994 Ears/Nose/Throat oral cavity/pharynx/larynx Overall: hypopharynx benign 09/07/2017 None Full Exam - General 1994 Ears/Nose/Throat oral cavity/pharynx/larynx Overall: no masses 09/07/2017 None Full Exam - General 1994 Respiratory auscultation Overall: breath sounds clear bilaterally 09/07/2017 None Full Exam - General 1994 Respiratory respiratory effort/rhythm Overall: no retractions 09/07/2017 None Full Exam - General 1994 Respiratory respiratory effort/rhythm Overall: normal rate 09/07/2017 None Full Exam - General 1994 Cardiovascular extremities Overall: no clubbing 09/07/2017 None Full Exam - General 1994 Cardiovascular auscultation of heart Overall: regular rate 09/07/2017 None Full Exam - General 1994 Cardiovascular auscultation of heart Overall: normal heart sounds 09/07/2017 None Full Exam - General 1994 Abdomen abdominal exam Overall: no tenderness 09/07/2017 None Full Exam - General 1994 Abdomen abdominal exam Overall: normal bowel sounds 09/07/2017 None Full Exam - General 1994 Musculoskeletal spine, ribs and pelvis Overall: good posture 09/07/2017 None Full Exam - General 1994 Musculoskeletal head and neck Overall: cervical spine benign 09/07/2017 None Full Exam - General 1994 Psychiatric orientation/consciousness Overall: oriented to person, place and time 09/07/2017 None Full Exam - General 1994 Psychiatric mood and affect Overall: normal mood and affect 09/07/2017 None Full Exam - General 1994 Eyes pupils and irises Overall: pupils equal, round, reactive to light and accomodation 09/07/2017 None Full Exam - General 1994 Neurologic cranial nerves Overall: crainial nerves 2 - 12 grossly intact 09/07/2017 None Full Exam - General 1994 Constitutional general appearance Development: well developed 05/05/2017 None Full Exam - General 1994 Constitutional general appearance Development: appears stated age 0205/05/2017 None Full Exam - General 1994 Constitutional general appearance Hygiene/Attention to Grooming: good hygiene 05/05/2017 None Full Exam - General 1994 Ears/Nose/Throat oral cavity/pharynx/larynx Overall: oral mucosa clear 05/05/2017 None Full Exam - General 1994 Ears/Nose/Throat oral cavity/pharynx/larynx Overall: oropharyngeal mucosa clear 05/05/2017 None Full Exam - General 1994 Ears/Nose/Throat oral cavity/pharynx/larynx Overall: hypopharynx benign 05/05/2017 None Full Exam - General 1994 Ears/Nose/Throat oral cavity/pharynx/larynx Overall: no masses 05/05/2017 None Full Exam - General 1994 Respiratory auscultation Overall: breath sounds clear bilaterally 05/05/2017 None Full Exam - General 1994 Respiratory respiratory effort/rhythm Overall: no retractions 05/05/2017 None Full Exam - General 1994 Respiratory respiratory effort/rhythm Overall: normal rate 05/05/2017 None Full Exam - General 1994 Cardiovascular extremities Overall: no clubbing 05/05/2017 None Full Exam - General 1994 Cardiovascular auscultation of heart Overall: regular rate 05/05/2017 None Full Exam - General 1994 Cardiovascular auscultation of heart Overall: normal heart sounds 05/05/2017 None Full Exam - General 1994 Abdomen abdominal exam Overall: no tenderness 05/05/2017 None Full Exam - General 1994 Abdomen abdominal exam Overall: normal bowel sounds 05/05/2017 None Full Exam - General 1994 Musculoskeletal spine, ribs and pelvis Overall: good posture 05/05/2017 None Full Exam - General 1994 Musculoskeletal head and neck Overall: cervical spine benign 05/05/2017 None Full Exam - General 1994 Psychiatric orientation/consciousness Overall: oriented to person, place and time 05/05/2017 None Full Exam - General 1994 Psychiatric mood and affect Overall: normal mood and affect 05/05/2017 None Full Exam - General 1994 Integument inspection of skin Location: left arm 05/05/2017 on forearm large nodular lesion on dorsum of arm - 2 x 3 cm with height of 1/2 inch Full Exam - General 1994 Constitutional general appearance Overall: well developed 03/15/2017 None Full Exam - General 1994 Constitutional general appearance Overall: in no acute distress 03/15/2017 None Full Exam - General 1994 Constitutional general appearance Overall: well nourished 03/15/2017 None Full Exam - General 1994 Eyes conjunctiva /eyelids Overall: conjunctiva clear 03/15/2017 None Full Exam - General 1994 Eyes conjunctiva /eyelids Overall: eyelids normal 03/15/2017 None Full Exam - General 1994 Ears/Nose/Throat lips/teeth/gingiva Overall: benign lips 03/15/2017 None Full Exam - General 1994 Respiratory respiratory effort/rhythm Overall: no retractions 03/15/2017 None Full Exam - General 1994 Respiratory respiratory effort/rhythm Overall: normal rate 03/15/2017 None Full Exam - General 1994 Musculoskeletal head and neck Overall: head atraumatic 03/15/2017 None Full Exam - General 1994 Neurologic cranial nerves Overall: crainial nerves 2 - 12 grossly intact 03/15/2017 None Full Exam - General 1994 Psychiatric orientation/consciousness Overall: oriented to person, place and time 03/15/2017 None Full Exam - General 1994 Psychiatric mood and affect Overall: normal mood and affect 03/15/2017 None Full Exam - General 1994 Psychiatric appearance Overall: well-groomed, good eye contact 03/15/2017 None Full Exam - General 1994 Constitutional general appearance Development: well developed 02/02/2017 None Full Exam - General 1994 Constitutional general appearance Development: appears stated age 1102/02/2017 None Full Exam - General 1994 Constitutional general appearance Hygiene/Attention to Grooming: good hygiene 02/02/2017 None Full Exam - General 1994 Ears/Nose/Throat oral cavity/pharynx/larynx Overall: oral mucosa clear 02/02/2017 None Full Exam - General 1994 Ears/Nose/Throat oral cavity/pharynx/larynx Overall: oropharyngeal mucosa clear 02/02/2017 None Full Exam - General 1994 Ears/Nose/Throat oral cavity/pharynx/larynx Overall: hypopharynx benign 02/02/2017 None Full Exam - General 1994 Ears/Nose/Throat oral cavity/pharynx/larynx Overall: no masses 02/02/2017 None Full Exam - General 1994 Respiratory auscultation Overall: breath sounds clear bilaterally 02/02/2017 None Full Exam - General 1994 Respiratory respiratory effort/rhythm Overall: no retractions 02/02/2017 None Full Exam - General 1994 Respiratory respiratory effort/rhythm Overall: normal rate 02/02/2017 None Full Exam - General 1994 Cardiovascular extremities Overall: no clubbing 02/02/2017 None Full Exam - General 1994 Cardiovascular auscultation of heart Overall: regular rate 02/02/2017 None Full Exam - General 1994 Cardiovascular auscultation of heart Overall: normal heart sounds 02/02/2017 None Full Exam - General 1994 Abdomen abdominal exam Overall: no tenderness 02/02/2017 None Full Exam - General 1994 Abdomen abdominal exam Overall: normal bowel sounds 02/02/2017 None Full Exam - General 1994 Musculoskeletal spine, ribs and pelvis Overall: good posture 02/02/2017 None Full Exam - General 1994 Musculoskeletal head and neck Overall: cervical spine benign 02/02/2017 None Full Exam - General 1994 Psychiatric orientation/consciousness Overall: oriented to person, place and time 02/02/2017 None Full Exam - General 1994 Psychiatric mood and affect Overall: normal mood and affect 02/02/2017 None Full Exam - General 1994 Constitutional general appearance Development: well developed 01/04/2017 None Full Exam - General 1994 Constitutional general appearance Development: appears stated age 1001/04/2017 None Full Exam - General 1994 Constitutional general appearance Hygiene/Attention to Grooming: good hygiene 01/04/2017 None Full Exam - General 1994 Eyes conjunctiva /eyelids Overall: eyelids normal 01/04/2017 None Full Exam - General 1994 Eyes pupils and irises Overall: pupils equal, round, reactive to light and accomodation 01/04/2017 None Full Exam - General 1994 Ears/Nose/Throat oral cavity/pharynx/larynx Overall: oral mucosa clear 01/04/2017 None Full Exam - General 1994 Ears/Nose/Throat oral cavity/pharynx/larynx Overall: oropharyngeal mucosa clear 01/04/2017 None Full Exam - General 1994 Ears/Nose/Throat oral cavity/pharynx/larynx Overall: hypopharynx benign 01/04/2017 None Full Exam - General 1994 Ears/Nose/Throat oral cavity/pharynx/larynx Overall: no masses 01/04/2017 None Full Exam - General 1994 Respiratory auscultation Overall: breath sounds clear bilaterally 01/04/2017 None Full Exam - General 1994 Respiratory respiratory effort/rhythm Overall: no retractions 01/04/2017 None Full Exam - General 1994 Respiratory respiratory effort/rhythm Overall: normal rate 01/04/2017 None Full Exam - General 1994 Cardiovascular extremities Overall: no clubbing 01/04/2017 None Full Exam - General 1994 Cardiovascular auscultation of heart Overall: regular rate 01/04/2017 None Full Exam - General 1994 Cardiovascular auscultation of heart Overall: normal heart sounds 01/04/2017 None Full Exam - General 1994 Abdomen abdominal exam Overall: no tenderness 01/04/2017 None Full Exam - General 1994 Abdomen abdominal exam Overall: normal bowel sounds 01/04/2017 None Full Exam - General 1994 Musculoskeletal spine, ribs and pelvis Overall: good posture 01/04/2017 None Full Exam - General 1994 Musculoskeletal head and neck Overall: cervical spine benign 01/04/2017 None Full Exam - General 1994 Psychiatric orientation/consciousness Overall: oriented to person, place and time 01/04/2017 None Full Exam - General 1994 Psychiatric mood and affect Overall: normal mood and affect 01/04/2017 None Full Exam - General 1994 Constitutional general appearance Development: well developed 11/16/2016 None Full Exam - General 1994 Constitutional general appearance Development: appears stated age 0811/16/2016 None Full Exam - General 1994 Constitutional general appearance Hygiene/Attention to Grooming: good hygiene 11/16/2016 None Full Exam - General 1994 Eyes conjunctiva /eyelids Overall: conjunctiva clear 11/16/2016 None Full Exam - General 1994 Eyes conjunctiva /eyelids Overall: cornea clear 11/16/2016 None Full Exam - General 1994 Eyes conjunctiva /eyelids Overall: eyelids normal 11/16/2016 None Full Exam - General 1994 Eyes pupils and irises Overall: pupils equal, round, reactive to light and accomodation 11/16/2016 None Full Exam - General 1994 Ears/Nose/Throat otoscopic exam External auditory canal: complete cerumen impaction 11/16/2016 None Full Exam - General 1994 Ears/Nose/Throat lips/teeth/gingiva Overall: benign lips 11/16/2016 None Full Exam - General 1994 Ears/Nose/Throat lips/teeth/gingiva Overall: normal dentition 11/16/2016 None Full Exam - General 1994 Ears/Nose/Throat oral cavity/pharynx/larynx Overall: oral mucosa clear 11/16/2016 None Full Exam - General 1994 Ears/Nose/Throat oral cavity/pharynx/larynx Overall: oropharyngeal mucosa clear 11/16/2016 None Full Exam - General 1994 Ears/Nose/Throat oral cavity/pharynx/larynx Overall: hypopharynx benign 11/16/2016 None Full Exam - General 1994 Ears/Nose/Throat oral cavity/pharynx/larynx Overall: no masses 11/16/2016 None Full Exam - General 1994 Respiratory auscultation Overall: breath sounds clear bilaterally 11/16/2016 None Full Exam - General 1994 Respiratory respiratory effort/rhythm Overall: no retractions 11/16/2016 None Full Exam - General 1994 Respiratory respiratory effort/rhythm Overall: normal rate 11/16/2016 None Full Exam - General 1994 Cardiovascular extremities Overall: no clubbing 11/16/2016 None Full Exam - General 1994 Cardiovascular auscultation of heart Overall: regular rate 11/16/2016 None Full Exam - General 1994 Cardiovascular auscultation of heart Overall: normal heart sounds 11/16/2016 None Full Exam - General 1994 Abdomen abdominal exam Overall: no tenderness 11/16/2016 None Full Exam - General 1994 Abdomen abdominal exam Overall: normal bowel sounds 11/16/2016 None Full Exam - General 1994 Musculoskeletal spine, ribs and pelvis Overall: spine benign 11/16/2016 None Full Exam - General 1994 Musculoskeletal spine, ribs and pelvis Overall: sacroiliac joint benign 11/16/2016 None Full Exam - General 1994 Musculoskeletal spine, ribs and pelvis Overall: good posture 11/16/2016 None Full Exam - General 1994 Musculoskeletal head and neck Overall: cervical spine benign 11/16/2016 None Full Exam - General 1994 Integument inspection of skin Location: scalp 11/16/2016 actinic keratosis on the right forehead, top of head, posterior scalp Full Exam - General 1994 Psychiatric orientation/consciousness Overall: oriented to person, place and time 11/16/2016 None Full Exam - General 1994 Psychiatric mood and affect Overall: normal mood and affect 11/16/2016 None Full Exam - General 1994 Neurologic cranial nerves Overall: crainial nerves 2 - 12 grossly intact 11/16/2016 None Full Exam - General 1994 Constitutional general appearance Development: well developed 07/19/2016 None Full Exam - General 1994 Constitutional general appearance Development: appears stated age 0407/19/2016 None Full Exam - General 1994 Constitutional general appearance Hygiene/Attention to Grooming: good hygiene 07/19/2016 None Full Exam - General 1994 Eyes conjunctiva /eyelids Overall: conjunctiva clear 07/19/2016 None Full Exam - General 1994 Eyes conjunctiva /eyelids Overall: cornea clear 07/19/2016 None Full Exam - General 1994 Eyes conjunctiva /eyelids Overall: eyelids normal 07/19/2016 None Full Exam - General 1994 Eyes pupils and irises Overall: pupils equal, round, reactive to light and accomodation 07/19/2016 None Full Exam - General 1994 Ears/Nose/Throat otoscopic exam External auditory canal: complete cerumen impaction 07/19/2016 None Full Exam - General 1994 Ears/Nose/Throat lips/teeth/gingiva Overall: benign lips 07/19/2016 None Full Exam - General 1994 Ears/Nose/Throat lips/teeth/gingiva Overall: normal dentition 07/19/2016 None Full Exam - General 1994 Ears/Nose/Throat oral cavity/pharynx/larynx Overall: oral mucosa clear 07/19/2016 None Full Exam - General 1994 Ears/Nose/Throat oral cavity/pharynx/larynx Overall: oropharyngeal mucosa clear 07/19/2016 None Full Exam - General 1994 Ears/Nose/Throat oral cavity/pharynx/larynx Overall: hypopharynx benign 07/19/2016 None Full Exam - General 1994 Ears/Nose/Throat oral cavity/pharynx/larynx Overall: no masses 07/19/2016 None Full Exam - General 1994 Respiratory auscultation Overall: breath sounds clear bilaterally 07/19/2016 None Full Exam - General 1994 Respiratory respiratory effort/rhythm Overall: no retractions 07/19/2016 None Full Exam - General 1994 Respiratory respiratory effort/rhythm Overall: normal rate 07/19/2016 None Full Exam - General 1994 Cardiovascular extremities Overall: no clubbing 07/19/2016 None Full Exam - General 1994 Cardiovascular auscultation of heart Overall: regular rate 07/19/2016 None Full Exam - General 1994 Cardiovascular auscultation of heart Overall: normal heart sounds 07/19/2016 None Full Exam - General 1994 Abdomen abdominal exam Overall: no tenderness 07/19/2016 None Full Exam - General 1994 Abdomen abdominal exam Overall: normal bowel sounds 07/19/2016 None Full Exam - General 1994 Musculoskeletal spine, ribs and pelvis Overall: spine benign 07/19/2016 None Full Exam - General 1994 Musculoskeletal spine, ribs and pelvis Overall: sacroiliac joint benign 07/19/2016 None Full Exam - General 1994 Musculoskeletal spine, ribs and pelvis Overall: good posture 07/19/2016 None Full Exam - General 1994 Musculoskeletal head and neck Overall: cervical spine benign 07/19/2016 None Full Exam - General 1994 Integument inspection of skin Location: scalp 07/19/2016 actinic keratosis on the right forehead, top of head, posterior scalp Full Exam - General 1994 Psychiatric orientation/consciousness Overall: oriented to person, place and time 07/19/2016 None Full Exam - General 1994 Psychiatric mood and affect Overall: normal mood and affect 07/19/2016 None Full Exam - General 1994 Eyes conjunctiva /eyelids Overall: conjunctiva clear 03/12/2016 None Full Exam - General 1994 Eyes conjunctiva /eyelids Overall: eyelids normal 03/12/2016 None Full Exam - General 1994 Eyes pupils and irises Overall: pupils equal, round, reactive to light and accomodation 03/12/2016 None Full Exam - General 1994 Ears/Nose/Throat lips/teeth/gingiva Overall: benign lips 03/12/2016 None Full Exam - General 1994 Ears/Nose/Throat oral cavity/pharynx/larynx Overall: oral mucosa clear 03/12/2016 None Full Exam - General 1994 Ears/Nose/Throat oral cavity/pharynx/larynx Overall: oropharyngeal mucosa clear 03/12/2016 None Full Exam - General 1994 Ears/Nose/Throat oral cavity/pharynx/larynx Overall: no masses 03/12/2016 None Full Exam - General 1994 Respiratory auscultation Overall: breath sounds clear bilaterally 03/12/2016 None Full Exam - General 1994 Respiratory respiratory effort/rhythm Overall: no retractions 03/12/2016 None Full Exam - General 1994 Respiratory respiratory effort/rhythm Overall: normal rate 03/12/2016 None Full Exam - General 1994 Cardiovascular extremities Overall: no clubbing 03/12/2016 None Full Exam - General 1994 Cardiovascular auscultation of heart Overall: regular rate 03/12/2016 None Full Exam - General 1994 Cardiovascular auscultation of heart Overall: normal heart sounds 03/12/2016 None Full Exam - General 1994 Abdomen abdominal exam Overall: no tenderness 03/12/2016 None Full Exam - General 1994 Abdomen abdominal exam Overall: normal bowel sounds 03/12/2016 None Full Exam - General 1994 Musculoskeletal spine, ribs and pelvis Overall: good posture 03/12/2016 None Full Exam - General 1994 Psychiatric orientation/consciousness Overall: oriented to person, place and time 03/12/2016 None Full Exam - General 1994 Psychiatric mood and affect Overall: normal mood and affect 03/12/2016 None Full Exam - General 1994 Constitutional general appearance Overall: well developed 03/12/2016 None Full Exam - General 1994 Constitutional general appearance Overall: in no acute distress 03/12/2016 None Full Exam - General 1994 Constitutional general appearance Overall: well nourished 03/12/2016 None Full Exam - General 1994 Ears/Nose/Throat otoscopic exam External auditory canal: partial cerumen occlusion 03/12/2016 None Full Exam - General 1994 Neurologic cranial nerves Overall: crainial nerves 2 - 12 grossly intact 03/12/2016 None Full Exam - General 1994 Constitutional general appearance Development: well developed 03/10/2016 None Full Exam - General 1994 Constitutional general appearance Development: appears stated age 1203/10/2016 None Full Exam - General 1994 Constitutional general appearance Hygiene/Attention to Grooming: good hygiene 03/10/2016 None Full Exam - General 1994 Eyes conjunctiva /eyelids Overall: conjunctiva clear 03/10/2016 None Full Exam - General 1994 Eyes conjunctiva /eyelids Overall: cornea clear 03/10/2016 None Full Exam - General 1994 Eyes conjunctiva /eyelids Overall: eyelids normal 03/10/2016 None Full Exam - General 1994 Eyes pupils and irises Overall: pupils equal, round, reactive to light and accomodation 03/10/2016 None Full Exam - General 1994 Ears/Nose/Throat otoscopic exam External auditory canal: complete cerumen impaction 03/10/2016 None Full Exam - General 1994 Ears/Nose/Throat lips/teeth/gingiva Overall: benign lips 03/10/2016 None Full Exam - General 1994 Ears/Nose/Throat lips/teeth/gingiva Overall: normal dentition 03/10/2016 None Full Exam - General 1994 Ears/Nose/Throat oral cavity/pharynx/larynx Overall: oral mucosa clear 03/10/2016 None Full Exam - General 1994 Ears/Nose/Throat oral cavity/pharynx/larynx Overall: oropharyngeal mucosa clear 03/10/2016 None Full Exam - General 1994 Ears/Nose/Throat oral cavity/pharynx/larynx Overall: hypopharynx benign 03/10/2016 None Full Exam - General 1994 Ears/Nose/Throat oral cavity/pharynx/larynx Overall: no masses 03/10/2016 None Full Exam - General 1994 Respiratory auscultation Overall: breath sounds clear bilaterally 03/10/2016 None Full Exam - General 1994 Respiratory respiratory effort/rhythm Overall: no retractions 03/10/2016 None Full Exam - General 1994 Respiratory respiratory effort/rhythm Overall: normal rate 03/10/2016 None Full Exam - General 1994 Cardiovascular extremities Overall: no clubbing 03/10/2016 None Full Exam - General 1994 Cardiovascular auscultation of heart Overall: regular rate 03/10/2016 None Full Exam - General 1994 Cardiovascular auscultation of heart Overall: normal heart sounds 03/10/2016 None Full Exam - General 1994 Abdomen abdominal exam Overall: no tenderness 03/10/2016 None Full Exam - General 1994 Abdomen abdominal exam Overall: normal bowel sounds 03/10/2016 None Full Exam - General 1994 Musculoskeletal spine, ribs and pelvis Overall: spine benign 03/10/2016 None Full Exam - General 1994 Musculoskeletal spine, ribs and pelvis Overall: sacroiliac joint benign 03/10/2016 None Full Exam - General 1994 Musculoskeletal spine, ribs and pelvis Overall: good posture 03/10/2016 None Full Exam - General 1994 Musculoskeletal head and neck Overall: cervical spine benign 03/10/2016 None Full Exam - General 1994 Integument inspection of skin Location: scalp 03/10/2016 actinic keratosis on the right forehead, top of head, posterior scalp Full Exam - General 1994 Psychiatric orientation/consciousness Overall: oriented to person, place and time 03/10/2016 None Full Exam - General 1994 Psychiatric mood and affect Overall: normal mood and affect 03/10/2016 None Full Exam - General 1994 Constitutional general appearance Development: well developed 11/06/2015 None Full Exam - General 1994 Constitutional general appearance Development: appears stated age 0811/06/2015 None Full Exam - General 1994 Constitutional general appearance Hygiene/Attention to Grooming: good hygiene 11/06/2015 None Full Exam - General 1994 Eyes conjunctiva /eyelids Overall: conjunctiva clear 11/06/2015 None Full Exam - General 1994 Eyes conjunctiva /eyelids Overall: cornea clear 11/06/2015 None Full Exam - General 1994 Eyes conjunctiva /eyelids Overall: eyelids normal 11/06/2015 None Full Exam - General 1994 Eyes pupils and irises Overall: pupils equal, round, reactive to light and accomodation 11/06/2015 None Full Exam - General 1994 Ears/Nose/Throat otoscopic exam External auditory canal: complete cerumen impaction 11/06/2015 None Full Exam - General 1994 Ears/Nose/Throat lips/teeth/gingiva Overall: benign lips 11/06/2015 None Full Exam - General 1994 Ears/Nose/Throat lips/teeth/gingiva Overall: normal dentition 11/06/2015 None Full Exam - General 1994 Ears/Nose/Throat oral cavity/pharynx/larynx Overall: oral mucosa clear 11/06/2015 None Full Exam - General 1994 Ears/Nose/Throat oral cavity/pharynx/larynx Overall: oropharyngeal mucosa clear 11/06/2015 None Full Exam - General 1994 Ears/Nose/Throat oral cavity/pharynx/larynx Overall: hypopharynx benign 11/06/2015 None Full Exam - General 1994 Ears/Nose/Throat oral cavity/pharynx/larynx Overall: no masses 11/06/2015 None Full Exam - General 1994 Respiratory auscultation Overall: breath sounds clear bilaterally 11/06/2015 None Full Exam - General 1994 Respiratory respiratory effort/rhythm Overall: no retractions 11/06/2015 None Full Exam - General 1994 Respiratory respiratory effort/rhythm Overall: normal rate 11/06/2015 None Full Exam - General 1994 Cardiovascular extremities Overall: no clubbing 11/06/2015 None Full Exam - General 1994 Cardiovascular auscultation of heart Overall: regular rate 11/06/2015 None Full Exam - General 1994 Cardiovascular auscultation of heart Overall: normal heart sounds 11/06/2015 None Full Exam - General 1994 Abdomen abdominal exam Overall: no tenderness 11/06/2015 None Full Exam - General 1994 Abdomen abdominal exam Overall: normal bowel sounds 11/06/2015 None Full Exam - General 1994 Musculoskeletal spine, ribs and pelvis Overall: spine benign 11/06/2015 None Full Exam - General 1994 Musculoskeletal spine, ribs and pelvis Overall: sacroiliac joint benign 11/06/2015 None Full Exam - General 1994 Musculoskeletal spine, ribs and pelvis Overall: good posture 11/06/2015 None Full Exam - General 1994 Musculoskeletal head and neck Overall: cervical spine benign 11/06/2015 None Full Exam - General 1994 Integument inspection of skin Location: scalp 11/06/2015 actinic keratosis on the right forehead, top of head, posterior scalp Full Exam - General 1994 Psychiatric orientation/consciousness Overall: oriented to person, place and time 11/06/2015 None Full Exam - General 1994 Psychiatric mood and affect Overall: normal mood and affect 11/06/2015 None Full Exam - General 1994 Constitutional general appearance Development: well developed 08/26/2015 None Full Exam - General 1994 Constitutional general appearance Development: appears stated age 0508/26/2015 None Full Exam - General 1994 Constitutional general appearance Hygiene/Attention to Grooming: good hygiene 08/26/2015 None Full Exam - General 1994 Eyes conjunctiva /eyelids Overall: conjunctiva clear 08/26/2015 None Full Exam - General 1994 Eyes conjunctiva /eyelids Overall: cornea clear 08/26/2015 None Full Exam - General 1994 Eyes conjunctiva /eyelids Overall: eyelids normal 08/26/2015 None Full Exam - General 1994 Eyes pupils and irises Overall: pupils equal, round, reactive to light and accomodation 08/26/2015 None Full Exam - General 1994 Ears/Nose/Throat otoscopic exam External auditory canal: complete cerumen impaction 08/26/2015 None Full Exam - General 1994 Ears/Nose/Throat lips/teeth/gingiva Overall: benign lips 08/26/2015 None Full Exam - General 1994 Ears/Nose/Throat lips/teeth/gingiva Overall: normal dentition 08/26/2015 None Full Exam - General 1994 Ears/Nose/Throat oral cavity/pharynx/larynx Overall: oral mucosa clear 08/26/2015 None Full Exam - General 1994 Ears/Nose/Throat oral cavity/pharynx/larynx Overall: oropharyngeal mucosa clear 08/26/2015 None Full Exam - General 1994 Ears/Nose/Throat oral cavity/pharynx/larynx Overall: hypopharynx benign 08/26/2015 None Full Exam - General 1994 Ears/Nose/Throat oral cavity/pharynx/larynx Overall: no masses 08/26/2015 None Full Exam - General 1994 Respiratory auscultation Overall: breath sounds clear bilaterally 08/26/2015 None Full Exam - General 1994 Respiratory respiratory effort/rhythm Overall: no retractions 08/26/2015 None Full Exam - General 1994 Respiratory respiratory effort/rhythm Overall: normal rate 08/26/2015 None Full Exam - General 1994 Cardiovascular extremities Overall: no clubbing 08/26/2015 None Full Exam - General 1994 Cardiovascular auscultation of heart Overall: regular rate 08/26/2015 None Full Exam - General 1994 Cardiovascular auscultation of heart Overall: normal heart sounds 08/26/2015 None Full Exam - General 1994 Abdomen abdominal exam Overall: no tenderness 08/26/2015 None Full Exam - General 1994 Abdomen abdominal exam Overall: normal bowel sounds 08/26/2015 None Full Exam - General 1994 Musculoskeletal spine, ribs and pelvis Overall: spine benign 08/26/2015 None Full Exam - General 1994 Musculoskeletal spine, ribs and pelvis Overall: sacroiliac joint benign 08/26/2015 None Full Exam - General 1994 Musculoskeletal spine, ribs and pelvis Overall: good posture 08/26/2015 None Full Exam - General 1994 Musculoskeletal head and neck Overall: cervical spine benign 08/26/2015 None Full Exam - General 1994 Integument inspection of skin Location: scalp 08/26/2015 actinic keratosis on the right forehead, top of head, posterior scalp --Improved Full Exam - General 1994 Psychiatric orientation/consciousness Overall: oriented to person, place and time 08/26/2015 None Full Exam - General 1994 Psychiatric mood and affect Overall: normal mood and affect 08/26/2015 None Full Exam - General 1994 Constitutional general appearance Development: well developed 07/29/2015 None Full Exam - General 1994 Constitutional general appearance Development: appears stated age 0407/29/2015 None Full Exam - General 1994 Constitutional general appearance Hygiene/Attention to Grooming: good hygiene 07/29/2015 None Full Exam - General 1994 Eyes conjunctiva /eyelids Overall: conjunctiva clear 07/29/2015 None Full Exam - General 1994 Eyes conjunctiva /eyelids Overall: cornea clear 07/29/2015 None Full Exam - General 1994 Eyes conjunctiva /eyelids Overall: eyelids normal 07/29/2015 None Full Exam - General 1994 Eyes pupils and irises Overall: pupils equal, round, reactive to light and accomodation 07/29/2015 None Full Exam - General 1994 Ears/Nose/Throat otoscopic exam External auditory canal: complete cerumen impaction 07/29/2015 None Full Exam - General 1994 Ears/Nose/Throat lips/teeth/gingiva Overall: benign lips 07/29/2015 None Full Exam - General 1994 Ears/Nose/Throat lips/teeth/gingiva Overall: normal dentition 07/29/2015 None Full Exam - General 1994 Ears/Nose/Throat oral cavity/pharynx/larynx Overall: oral mucosa clear 07/29/2015 None Full Exam - General 1994 Ears/Nose/Throat oral cavity/pharynx/larynx Overall: oropharyngeal mucosa clear 07/29/2015 None Full Exam - General 1994 Ears/Nose/Throat oral cavity/pharynx/larynx Overall: hypopharynx benign 07/29/2015 None Full Exam - General 1994 Ears/Nose/Throat oral cavity/pharynx/larynx Overall: no masses 07/29/2015 None Full Exam - General 1994 Respiratory auscultation Overall: breath sounds clear bilaterally 07/29/2015 None Full Exam - General 1994 Respiratory respiratory effort/rhythm Overall: no retractions 07/29/2015 None Full Exam - General 1994 Respiratory respiratory effort/rhythm Overall: normal rate 07/29/2015 None Full Exam - General 1994 Cardiovascular extremities Overall: no clubbing 07/29/2015 None Full Exam - General 1994 Cardiovascular auscultation of heart Overall: regular rate 07/29/2015 None Full Exam - General 1994 Cardiovascular auscultation of heart Overall: normal heart sounds 07/29/2015 None Full Exam - General 1994 Lymphatic neck nodes Overall: anterior cervical chain benign 07/29/2015 None Full Exam - General 1994 Lymphatic neck nodes Overall: posterior cervical chain benign 07/29/2015 None Full Exam - General 1994 Integument inspection of skin Location: scalp 07/29/2015 actinic keratosis on the right forehead, top of head, posterior scalp Full Exam - General 1994 Neurologic deep tendon reflexes Overall: deep tendon reflexes intact 07/29/2015 None Full Exam - General 1994 Neurologic cranial nerves Overall: crainial nerves 2 - 12 grossly intact 07/29/2015 None Full Exam - General 1994 Psychiatric orientation/consciousness Overall: oriented to person, place and time 07/29/2015 None Full Exam - General 1994 Psychiatric mood and affect Overall: normal mood and affect 07/29/2015 None Full Exam - General 1994 Constitutional general appearance Development: well developed 04/29/2015 None Full Exam - General 1994 Constitutional general appearance Development: appears stated age 0104/29/2015 None Full Exam - General 1994 Constitutional general appearance Hygiene/Attention to Grooming: good hygiene 04/29/2015 None Full Exam - General 1994 Eyes conjunctiva /eyelids Overall: conjunctiva clear 04/29/2015 None Full Exam - General 1994 Eyes conjunctiva /eyelids Overall: cornea clear 04/29/2015 None Full Exam - General 1994 Eyes conjunctiva /eyelids Overall: eyelids normal 04/29/2015 None Full Exam - General 1994 Eyes pupils and irises Overall: pupils equal, round, reactive to light and accomodation 04/29/2015 None Full Exam - General 1994 Ears/Nose/Throat otoscopic exam External auditory canal: complete cerumen impaction 04/29/2015 None Full Exam - General 1994 Ears/Nose/Throat lips/teeth/gingiva Overall: benign lips 04/29/2015 None Full Exam - General 1994 Ears/Nose/Throat lips/teeth/gingiva Overall: normal dentition 04/29/2015 None Full Exam - General 1994 Ears/Nose/Throat oral cavity/pharynx/larynx Overall: oral mucosa clear 04/29/2015 None Full Exam - General 1994 Ears/Nose/Throat oral cavity/pharynx/larynx Overall: oropharyngeal mucosa clear 04/29/2015 None Full Exam - General 1994 Ears/Nose/Throat oral cavity/pharynx/larynx Overall: hypopharynx benign 04/29/2015 None Full Exam - General 1994 Ears/Nose/Throat oral cavity/pharynx/larynx Overall: no masses 04/29/2015 None Full Exam - General 1994 Respiratory auscultation Overall: breath sounds clear bilaterally 04/29/2015 None Full Exam - General 1994 Respiratory respiratory effort/rhythm Overall: no retractions 04/29/2015 None Full Exam - General 1994 Respiratory respiratory effort/rhythm Overall: normal rate 04/29/2015 None Full Exam - General 1994 Cardiovascular extremities Overall: no clubbing 04/29/2015 None Full Exam - General 1994 Cardiovascular auscultation of heart Overall: regular rate 04/29/2015 None Full Exam - General 1994 Cardiovascular auscultation of heart Overall: normal heart sounds 04/29/2015 None Full Exam - General 1994 Abdomen abdominal exam Overall: no tenderness 04/29/2015 None Full Exam - General 1994 Abdomen abdominal exam Overall: normal bowel sounds 04/29/2015 None Full Exam - General 1994 Lymphatic neck nodes Overall: anterior cervical chain benign 04/29/2015 None Full Exam - General 1994 Lymphatic neck nodes Overall: posterior cervical chain benign 04/29/2015 None Full Exam - General 1994 Musculoskeletal spine, ribs and pelvis Overall: spine benign 04/29/2015 None Full Exam - General 1994 Musculoskeletal spine, ribs and pelvis Overall: sacroiliac joint benign 04/29/2015 None Full Exam - General 1994 Musculoskeletal spine, ribs and pelvis Overall: good posture 04/29/2015 None Full Exam - General 1994 Musculoskeletal head and neck Overall: head atraumatic 04/29/2015 None Full Exam - General 1994 Musculoskeletal head and neck Overall: cervical spine benign 04/29/2015 None Full Exam - General 1994 Integument inspection of skin Location: scalp 04/29/2015 actinic keratosis on the right forehead, top of head, posterior scalp Full Exam - General 1994 Integument inspection of skin Location: face 04/29/2015 right cheek, left sideburn - actinic keratosis Full Exam - General 1994 Neurologic deep tendon reflexes Overall: deep tendon reflexes intact 04/29/2015 None Full Exam - General 1994 Neurologic cranial nerves Overall: crainial nerves 2 - 12 grossly intact 04/29/2015 None Full Exam - General 1994 Psychiatric orientation/consciousness Overall: oriented to person, place and time 04/29/2015 None Full Exam - General 1994 Psychiatric mood and affect Overall: normal mood and affect 04/29/2015 None Full Exam - General 1994 Integument inspection of skin Location: right arm 04/29/2015 forearm Full Exam - General 1994 Constitutional general appearance Development: well developed 10/23/2014 None Full Exam - General 1994 Constitutional general appearance Development: appears stated age 0710/23/2014 None Full Exam - General 1994 Constitutional general appearance Hygiene/Attention to Grooming: good hygiene 10/23/2014 None Full Exam - General 1994 Eyes conjunctiva /eyelids Overall: conjunctiva clear 10/23/2014 None Full Exam - General 1994 Eyes conjunctiva /eyelids Overall: cornea clear 10/23/2014 None Full Exam - General 1994 Eyes conjunctiva /eyelids Overall: eyelids normal 10/23/2014 None Full Exam - General 1994 Eyes pupils and irises Overall: pupils equal, round, reactive to light and accomodation 10/23/2014 None Full Exam - General 1994 Ears/Nose/Throat lips/teeth/gingiva Overall: benign lips 10/23/2014 None Full Exam - General 1994 Ears/Nose/Throat lips/teeth/gingiva Overall: normal dentition 10/23/2014 None Full Exam - General 1994 Ears/Nose/Throat oral cavity/pharynx/larynx Overall: oral mucosa clear 10/23/2014 None Full Exam - General 1994 Ears/Nose/Throat oral cavity/pharynx/larynx Overall: oropharyngeal mucosa clear 10/23/2014 None Full Exam - General 1994 Ears/Nose/Throat oral cavity/pharynx/larynx Overall: hypopharynx benign 10/23/2014 None Full Exam - General 1994 Ears/Nose/Throat oral cavity/pharynx/larynx Overall: no masses 10/23/2014 None Full Exam - General 1994 Respiratory auscultation Overall: breath sounds clear bilaterally 10/23/2014 None Full Exam - General 1994 Respiratory respiratory effort/rhythm Overall: no retractions 10/23/2014 None Full Exam - General 1994 Respiratory respiratory effort/rhythm Overall: normal rate 10/23/2014 None Full Exam - General 1994 Cardiovascular extremities Overall: no clubbing 10/23/2014 None Full Exam - General 1994 Cardiovascular auscultation of heart Overall: regular rate 10/23/2014 None Full Exam - General 1994 Cardiovascular auscultation of heart Overall: normal heart sounds 10/23/2014 None Full Exam - General 1994 Abdomen abdominal exam Overall: no tenderness 10/23/2014 None Full Exam - General 1994 Abdomen abdominal exam Overall: normal bowel sounds 10/23/2014 None Full Exam - General 1994 Lymphatic neck nodes Overall: anterior cervical chain benign 10/23/2014 None Full Exam - General 1994 Lymphatic neck nodes Overall: posterior cervical chain benign 10/23/2014 None Full Exam - General 1994 Musculoskeletal spine, ribs and pelvis Overall: spine benign 10/23/2014 None Full Exam - General 1994 Musculoskeletal spine, ribs and pelvis Overall: sacroiliac joint benign 10/23/2014 None Full Exam - General 1994 Musculoskeletal spine, ribs and pelvis Overall: good posture 10/23/2014 None Full Exam - General 1994 Musculoskeletal head and neck Overall: head atraumatic 10/23/2014 None Full Exam - General 1994 Musculoskeletal head and neck Overall: cervical spine benign 10/23/2014 None Full Exam - General 1994 Neurologic deep tendon reflexes Overall: deep tendon reflexes intact 10/23/2014 None Full Exam - General 1994 Neurologic cranial nerves Overall: crainial nerves 2 - 12 grossly intact 10/23/2014 None Full Exam - General 1994 Psychiatric orientation/consciousness Overall: oriented to person, place and time 10/23/2014 None Full Exam - General 1994 Psychiatric mood and affect Overall: normal mood and affect 10/23/2014 None Full Exam - General 1994 Ears/Nose/Throat otoscopic exam External auditory canal: complete cerumen impaction 10/23/2014 None Full Exam - General 1994 Integument inspection of skin Location: scalp 10/23/2014 actinic keratosis on the right forehead Full Exam - General 1994 Integument inspection of skin Location: face 10/23/2014 right cheek - actinic keratosis Procedures Procedure Codes Date PPPS, SUBSEQ VISIT CPT -4: G0439 03/15/2017 PPPS, SUBSEQ VISIT CPT -4: G0439 03/12/2016 DESTRUCT PREMALG LESION CPT-4: 96703 10/23/2014 DESTRUCT PREMALG LES 2-14 CPT-4: 51610 10/23/2014 Vital Signs Date Vital 03/07/2018 Blood Pressure 1: 160/80 Code : 8480-6 BMI: 29.8 Code : 45935-3 Heart Rate 1 : 56 bpm Height: 5'5" SpO2: 96% Weight: 179 lbs 01/30/2018 Blood Pressure 1: 144/64 Code : 8480-6 Blood Pressure 2: 150/64 Code: 8480-6 BMI: 29.6 Code: 80384-0 Heart Rate 1: 61 bpm Height: 5'5" SpO2: 98% Weight: 178 lbs 09/07/2017 Blood Pressure 1: 148/68 Code : 8480-6 BMI: 29.6 Code : 83243-9 Heart Rate 1 : 60 bpm Height: 5'5" SpO2: 98% Weight: 178 lbs 05/05/2017 Blood Pressure 1: 122/64 Code : 8480-6 BMI: 28.3 Code : 39347-5 Heart Rate 1 : 56 bpm Height: 5'5" SpO2: 97% Weight: 170 lbs 2017 BMI: 29.1 Code: 59898-7 Height: 5'5" Weight: 175 lbs 03/15/2017 Blood Pressure 1: 136/76 Code : 8480-6 BMI: 29.1 Code : 04170-3 Heart Rate 1 : 82 bpm Height: 5'5" SpO2: 98% Weight: 175 lbs 03/03/2017 BMI: 29.1 Code: 68480-2 Height: 5'5" Weight: 175 lbs 02/02/2017 Blood Pressure 1: 132/60 Code : 8480-6 BMI: 28.6 Code : 25462-5 Heart Rate 1 : 64 bpm Height: 5'5" SpO2: 99% Weight: 172 lbs 01/04/2017 Blood Pressure 1: 138/70 Code : 8480-6 BMI: 29.6 Code : 64371-6 Heart Rate 1 : 59 bpm Height: 5'5" SpO2: 99% Weight: 178 lbs 11/16/2016 Blood Pressure 1: 150/70 Code : 8480-6 BMI: 30.6 Code : 48005-8 Heart Rate 1 : 68 bpm Height: 5'5" SpO2: 94% Weight: 184 lbs 07/19/2016 Blood Pressure 1: 150/70 Code : 8480-6 Blood Pressure 2: 154/70 Code: 8480-6 BMI: 31.0 Code: 52769-6 Heart Rate 1: 61 bpm Height: 5'5" SpO2: 98% Weight: 186 lbs 03/12/2016 Blood Pressure 1: 156/80 Code : 8480-6 BMI: 30.5 Code : 09896-0 Heart Rate 1 : 60 bpm Height: 5'5" SpO2: 98% Waist Measure (cm): 91 cm Weight: 183 lbs 03/10/2016 Blood Pressure 1: 158/78 Code : 8480-6 Blood Pressure 1: 158/78 Code: 8480-6 BMI: 30.5 Code: 98808-4 Heart Rate 1: 61 bpm Height: 5'5" SpO2: 98% Weight: 183 lbs 11/06/2015 Blood Pressure 1: 156/80 Code : 8480-6 Blood Pressure 1: 138/70 Code: 8480-6 BMI: 30.1 Code: 80602-4 Heart Rate 1: 64 bpm Height: 5'5" SpO2: 98% Weight: 181 lbs 09/09/2015 Blood Pressure 1: 126/68 Code : 8480-6 08/26/2015 Blood Pressure 1: 168/74 Code : 8480-6 Blood Pressure 1: 162/76 Code: 8480-6 BMI: 29.8 Code: 34622-0 Heart Rate 1: 61 bpm Height: 5'5" SpO2: 98% Weight: 179 lbs 07/29/2015 Blood Pressure 1: 166/76 Code : 8480-6 BMI: 30.0 Code : 68871-6 Heart Rate 1 : 75 bpm Height: 5'5" SpO2: 99% Weight: 180 lbs 04/29/2015 Blood Pressure 1: 130/70 Code : 8480-6 Blood Pressure 1: 132/76 Code: 8480-6 BMI: 30.8 Code: 63357-8 Heart Rate 1: 64 bpm Height: 5'5" SpO2: 99% Weight: 185 lbs 10/23/2014 Blood Pressure 1: 140/76 Code : 8480-6 BMI: 30.5 Code : 48460-1 Heart Rate 1 : 63 bpm Height: 5'5" SpO2: 98% Weight: 183 lbs Functional Status No Functional Status data History of Present Illness Symptom Name Status Result Effective Date Notes Quality chronic 03/07 None Quality primary hypertension 03/07/2018 None Onset and Resolution ongoing 03/07/2018 None Onset of Symptom during adulthood 03/07/2018 None Blood Pressure Values patient checking blood pressure at home - did not bring in readings 2017 None Alleviating Factors medication 03/07/2018 None Exacerbating Factors stress 03/07/2018 None Pertinent Findings dizziness 03/07/2018 "little bit but not enough to worry about " Pertinent Findings Denies dyspnea 03/07/2018 None Pertinent Findings Denies edema 03/07/2018 None hypertension Quality chronic 01/30/2018 None hypertension Quality primary hypertension 01/30/2018 None hypertension Onset and Resolution ongoing 01/30/2018 None hypertension Onset of Symptom during adulthood 01/30/2018 None hypertension Blood Pressure Values patient checking blood pressure at home - did not bring in readings 01/30/2018 None hypertension Alleviating Factors medication 01/30/2018 None hypertension Exacerbating Factors stress 01/30/2018 None hypertension Pertinent Findings dizziness 01/30/2018 at times hypertension Pertinent Findings Denies dyspnea 01/30/2018 None hypertension Pertinent Findings Denies edema 01/30/2018 None diabetes mellitus Onset of Symptom onset as an adult 01/30/2018 None diabetes mellitus Quality non-insulin dependent 01/30/2018 None diabetes mellitus Quality chronic 01/30/2018 None diabetes mellitus Severity moderate 01/30/2018 None diabetes mellitus Alleviating Factors medication 01/30/2018 None diabetes mellitus Exacerbating Factors diet 01/30/2018 None diabetes mellitus Nutrition regular diet 01/30/2018 None diabetes mellitus Pertinent Findings Denies nausea 01/30/2018 None diabetes mellitus Pertinent Findings numbness 01/30/2018 occasionally in his hands- more often on the left diabetes mellitus Pertinent Findings tingling 01/30/2018 occasionally in his hands- more often on the left diabetes mellitus Test results Pt checking blood glucose readings, did not bring results to clinic 01/30/2018 None diabetes mellitus Glucose monitoring daily 01/30/2018 None hypertension Quality chronic 09/07/2017 None hypertension Quality primary hypertension 09/07/2017 None hypertension Onset and Resolution ongoing 09/07/2017 None hypertension Onset of Symptom during adulthood 09/07/2017 None hypertension Blood Pressure Values patient checking blood pressure at home - did not bring in readings 09/07/2017 None hypertension Alleviating Factors medication 09/07/2017 None hypertension Exacerbating Factors stress 09/07/2017 None hypertension Pertinent Findings dizziness 09/07/2017 at times- attributes it to his cataracts hypertension Pertinent Findings Denies dyspnea 09/07/2017 None hypertension Pertinent Findings Denies edema 09/07/2017 None diabetes mellitus Onset of Symptom onset as an adult 09/07/2017 None diabetes mellitus Quality non-insulin dependent 09/07/2017 None diabetes mellitus Severity moderate 09/07/2017 None diabetes mellitus Alleviating Factors medication 09/07/2017 None diabetes mellitus Exacerbating Factors diet 09/07/2017 None diabetes mellitus Nutrition regular diet 09/07/2017 None diabetes mellitus Pertinent Findings Denies nausea 09/07/2017 None diabetes mellitus Pertinent Findings numbness 09/07/2017 occasionally in his hands- more often on the left diabetes mellitus Pertinent Findings tingling 09/07/2017 occasionally in his hands- more often on the left diabetes mellitus Quality chronic 09/07/2017 None diabetes mellitus Test results Pt checking blood glucose readings, did not bring results to clinic 09/07/2017 None diabetes mellitus Glucose monitoring daily 09/07/2017 None hypertension Quality chronic 05/05/2017 None hypertension Quality primary hypertension 05/05/2017 None hypertension Onset and Resolution ongoing 05/05/2017 None hypertension Onset of Symptom during adulthood 05/05/2017 None hypertension Blood Pressure Values patient checking blood pressure at home - did not bring in readings 05/05/2017 None hypertension Alleviating Factors medication 05/05/2017 None hypertension Exacerbating Factors change in dietary habits 05/05/2017 None hypertension Exacerbating Factors stress 05/05/2017 None hypertension Pertinent Findings Denies dizziness 05/05/2017 None hypertension Pertinent Findings Denies dyspnea 05/05/2017 None hypertension Pertinent Findings Denies edema 05/05/2017 None diabetes mellitus Onset of Symptom onset as an adult 05/05/2017 None diabetes mellitus Quality non-insulin dependent 05/05/2017 None diabetes mellitus Severity moderate 05/05/2017 None diabetes mellitus Alleviating Factors medication 05/05/2017 None diabetes mellitus Exacerbating Factors diet 05/05/2017 None diabetes mellitus Nutrition regular diet 05/05/2017 None diabetes mellitus Pertinent Findings Denies dizziness 05/05/2017 None diabetes mellitus Pertinent Findings Denies dyspnea 05/05/2017 None diabetes mellitus Pertinent Findings Denies nausea 05/05/2017 None diabetes mellitus Pertinent Findings numbness 05/05/2017 occasionally in his hands- more often on the left diabetes mellitus Pertinent Findings tingling 05/05/2017 occasionally in his hands- more often on the left hypertension Pertinent Findings Denies decreased energy 05/05/2017 None hypertension Pertinent Findings Denies anxiety 05/05/2017 None skin lesion Quality enlarging 05/05/2017 None skin lesion Quality asymmetric 05/05/2017 None skin lesion Quality firm 05/05/2017 None skin lesion Quality fixed 05/05/2017 None skin lesion Quality non-tender 05/05/2017 None skin lesion Quality raised 05/05/2017 None skin lesion Quality worsening 05/05/2017 None skin lesion Onset and Resolution ongoing 05/05/2017 None skin lesion Onset of Symptom _ months ago 05/05/2017 None skin lesion Severity severe 05/05/2017 None skin lesion Pertinent Findings family history of atopy 05/05/2017 None skin lesion Pertinent Findings family history of neurocutaneous disorders 05/05/2017 None skin lesion Triggers no known associated factors 05/05/2017 None skin lesion Alleviating Factors no alleviating factors 05/05/2017 None skin lesion Location left arm 05/05/2017 None arthritis Alleviating Factors NSAID's 05/05/2017 None arthritis Exacerbating Factors activity 05/05/2017 None arthritis Location on the right 05/05/2017 None arthritis Mechanism of injury unknown 05/05/2017 None arthritis Onset and Resolution ongoing 05/05/2017 None arthritis Onset of Symptom _ months ago 05/05/2017 None arthritis Quality dull pain 05/05/2017 None arthritis Quality intermittent 05/05/2017 None arthritis Quality worsening 05/05/2017 None arthritis Severity moderate 05/05/2017 None arthritis Pertinent Findings Denies crepitus 05/05/2017 None arthritis Pertinent Findings decreased range of motion 05/05/2017 None arthritis Pertinent Findings pain with movement 05/05/2017 None arthritis Pertinent Findings pain at rest 05/05/2017 None arthritis Pertinent Findings stiffness 05/05/2017 None arthritis Pertinent Findings Denies numbness 05/05/2017 None Annual Medicare Wellness Exam Alcohol Use does not drink any alcohol 03/15/2017 None Annual Medicare Wellness Exam Aspirin Use yes 03/15/2017 325 Annual Medicare Wellness Exam Blood Glucose (self reported) high (126 or higher) 03/15/2017 None Annual Medicare Wellness Exam Blood Pressure (self reported ) borderline (120/80 - 139/89) 03/15/2017 None Annual Medicare Wellness Exam Cholesterol (self reported) don't know 03/15/2017 None Annual Medicare Wellness Exam Depression (last 6 months) almost never 03/15/2017 None Annual Medicare Wellness Exam Depression or Hopelessness almost never 03/15/2017 None Annual Medicare Wellness Exam Describe Your Health very good 03/15/2017 None Annual Medicare Wellness Exam Exercise Habits does not exercise 03/15/2017 None Annual Medicare Wellness Exam Handling Stress usually tonya effectively 03/15/2017 None Annual Medicare Wellness Exam Hemaglobin A-1C (self reported ) don't know 03/15/2017 None Annual Medicare Wellness Exam Hours of Sleep 5-6 03/15/2017 None Annual Medicare Wellness Exam Interaction with Friends yes 03/15/2017 None Annual Medicare Wellness Exam Interests & Pleasure some of the time 03/15/2017 None Annual Medicare Wellness Exam Life Satisfaction satisfied 03/15/2017 None Annual Medicare Wellness Exam Motor Vehicle Safety always fastens seat belt: y 03/15/2017 None Annual Medicare Wellness Exam Nutrition servings of vegetables / fruit per day: 4-5 03/15/2017 None Annual Medicare Wellness Exam Smoking and Tobacco Use non smoker 03/15/2017 None Annual Medicare Wellness Exam Social & Emotional Support usually 03/15/2017 None Annual Medicare Wellness Exam Stress some of the time 03/15/2017 None Annual Medicare Wellness Exam Sun Exposure protects skin when outdoors: n 03/15/2017 None hypertension Quality chronic 02/02/2017 None hypertension Quality primary hypertension 02/02/2017 None hypertension Onset and Resolution ongoing 02/02/2017 None hypertension Onset of Symptom during adulthood 02/02/2017 None hypertension Blood Pressure Values patient checking blood pressure at home - did not bring in readings 02/02/2017 None hypertension Alleviating Factors medication 02/02/2017 None hypertension Exacerbating Factors change in dietary habits 02/02/2017 None hypertension Exacerbating Factors stress 02/02/2017 None hypertension Pertinent Findings Denies dizziness 02/02/2017 None hypertension Pertinent Findings Denies dyspnea 02/02/2017 None hypertension Pertinent Findings Denies edema 02/02/2017 None diabetes mellitus Onset of Symptom onset as an adult 02/02/2017 None diabetes mellitus Quality non-insulin dependent 02/02/2017 None diabetes mellitus Severity moderate 02/02/2017 None diabetes mellitus Alleviating Factors medication 02/02/2017 None diabetes mellitus Exacerbating Factors diet 02/02/2017 None diabetes mellitus Nutrition regular diet 02/02/2017 None diabetes mellitus Pertinent Findings Denies dizziness 02/02/2017 None diabetes mellitus Pertinent Findings Denies dyspnea 02/02/2017 None diabetes mellitus Pertinent Findings Denies nausea 02/02/2017 None diabetes mellitus Pertinent Findings numbness 02/02/2017 occasionally in his hands- more often on the left diabetes mellitus Pertinent Findings tingling 02/02/2017 occasionally in his hands- more often on the left diabetes mellitus Test results Pt checking blood glucose at home, see scanned readings 2016 -He brought his blood glucose meter diabetes mellitus Glucose monitoring daily 02/02/2017 None hypertension Quality chronic 01/04/2017 None hypertension Onset and Resolution ongoing 01/04/2017 None hypertension Onset of Symptom during adulthood 01/04/2017 None hypertension Blood Pressure Values patient checking blood pressure at home - did not bring in readings 01/04/2017 None hypertension Alleviating Factors medication 01/04/2017 None hypertension Exacerbating Factors change in dietary habits 01/04/2017 None hypertension Exacerbating Factors stress 01/04/2017 None hypertension Pertinent Findings Denies dizziness 01/04/2017 None hypertension Pertinent Findings Denies dyspnea 01/04/2017 None hypertension Pertinent Findings Denies edema 01/04/2017 None diabetes mellitus Onset of Symptom onset as an adult 01/04/2017 None diabetes mellitus Quality non-insulin dependent 01/04/2017 None diabetes mellitus Severity moderate 01/04/2017 None diabetes mellitus Alleviating Factors medication 01/04/2017 None diabetes mellitus Exacerbating Factors diet 01/04/2017 None diabetes mellitus Nutrition regular diet 01/04/2017 None diabetes mellitus Pertinent Findings Denies dizziness 01/04/2017 None diabetes mellitus Pertinent Findings Denies dyspnea 01/04/2017 None diabetes mellitus Pertinent Findings Denies nausea 01/04/2017 None diabetes mellitus Pertinent Findings Denies numbness 01/04/2017 None diabetes mellitus Pertinent Findings Denies tingling 01/04/2017 None diabetes mellitus Glucose monitoring occasional glucose testing 01/04/2017 ( twice weekly on Mondays and ) diabetes mellitus Test results Pt checking blood glucose readings, did not bring results to clinic 01/04/2017 None hypertension Quality primary hypertension 01/04/2017 None hypertension Quality chronic 11/16/2016 None hypertension Quality intermittent 11/16/2016 None hypertension Onset and Resolution ongoing 11/16/2016 None hypertension Onset of Symptom during adulthood 11/16/2016 None hypertension Blood Pressure Values patient checking blood pressure at home - did not bring in readings 11/16/2016 None hypertension Alleviating Factors medication 11/16/2016 None hypertension Exacerbating Factors change in dietary habits 11/16/2016 None hypertension Exacerbating Factors stress 11/16/2016 None hypertension Pertinent Findings Denies dizziness 11/16/2016 None hypertension Pertinent Findings Denies dyspnea 11/16/2016 None hypertension Pertinent Findings Denies edema 11/16/2016 None diabetes mellitus Onset of Symptom onset as an adult 11/16/2016 None diabetes mellitus Quality non-insulin dependent 11/16/2016 None diabetes mellitus Severity moderate 11/16/2016 None diabetes mellitus Alleviating Factors medication 11/16/2016 None diabetes mellitus Exacerbating Factors diet 11/16/2016 None diabetes mellitus Nutrition regular diet 11/16/2016 None diabetes mellitus Pertinent Findings Denies dizziness 11/16/2016 None diabetes mellitus Pertinent Findings Denies dyspnea 11/16/2016 None diabetes mellitus Pertinent Findings Denies nausea 11/16/2016 None diabetes mellitus Pertinent Findings Denies numbness 11/16/2016 None diabetes mellitus Pertinent Findings Denies tingling 11/16/2016 None diabetes mellitus Glucose monitoring daily 11/16/2016 None hypertension Quality chronic 07/19/2016 None hypertension Quality intermittent 07/19/2016 None hypertension Onset and Resolution ongoing 07/19/2016 None hypertension Onset of Symptom during adulthood 07/19/2016 None hypertension Alleviating Factors medication 07/19/2016 None hypertension Exacerbating Factors change in dietary habits 07/19/2016 None hypertension Exacerbating Factors stress 07/19/2016 None hypertension Pertinent Findings Denies dizziness 07/19/2016 None hypertension Pertinent Findings Denies dyspnea 07/19/2016 None hypertension Pertinent Findings Denies edema 07/19/2016 None diabetes mellitus Onset of Symptom onset as an adult 07/19/2016 None diabetes mellitus Quality non-insulin dependent 07/19/2016 None diabetes mellitus Severity moderate 07/19/2016 None diabetes mellitus Alleviating Factors medication 07/19/2016 None diabetes mellitus Exacerbating Factors diet 07/19/2016 None diabetes mellitus Nutrition regular diet 07/19/2016 None diabetes mellitus Pertinent Findings Denies dyspnea 07/19/2016 None diabetes mellitus Pertinent Findings Denies nausea 07/19/2016 None insomnia Quality disrupted sleep 07/19/2016 None insomnia Quality intermittent 07/19/2016 None insomnia Onset and Resolution ongoing 07/19/2016 None insomnia Onset of Symptom years ago 07/19/2016 None eye floaters Location in the right eye 07/19/2016 None eye floaters Quality brown 07/19/2016 spot eye floaters Quality intermittent 07/19/2016 None eye floaters Onset and Resolution ongoing 07/19/2016 None hypertension Blood Pressure Values patient checking blood pressure at home - did not bring in readings 07/19/2016 None diabetes mellitus Test results Pt checking blood glucose readings, did not bring results to clinic 07/19/2016 None diabetes mellitus Glucose monitoring occasional glucose testing 07/19/2016 ( Checks on Mondays and ) diabetes mellitus Pertinent Findings Denies dizziness 07/19/2016 None diabetes mellitus Pertinent Findings Denies numbness 07/19/2016 None diabetes mellitus Pertinent Findings Denies tingling 07/19/2016 None Annual Medicare Wellness Exam Alcohol Use does not drink any alcohol 03/12/2016 None Annual Medicare Wellness Exam Aspirin Use no 03/12/2016 None Annual Medicare Wellness Exam Blood Glucose (self reported) borderline high (100-125) 03/12/2016 None Annual Medicare Wellness Exam Blood Pressure (self reported ) low / normal (120/80) 03/12/2016 None Annual Medicare Wellness Exam Cholesterol (self reported) don't know 03/12/2016 None Annual Medicare Wellness Exam Depression (last 6 months) some of the time 03/12/2016 None Annual Medicare Wellness Exam Depression or Hopelessness almost never 03/12/2016 None Annual Medicare Wellness Exam Describe Your Health excellent 03/12/2016 None Annual Medicare Wellness Exam Exercise Habits exercises 7 days per week 03/12/2016 None Annual Medicare Wellness Exam Exercise Habits exercises 60 minutes per day 03/12/2016 None Annual Medicare Wellness Exam Handling Stress usually tonya effectively 03/12/2016 None Annual Medicare Wellness Exam Hemaglobin A-1C (self reported ) desireable (6 or lower) 03/12/2016 None Annual Medicare Wellness Exam Hours of Sleep 6 03/12/2016 None Annual Medicare Wellness Exam Interaction with Friends yes 03/12/2016 None Annual Medicare Wellness Exam Interests & Pleasure most of the time 03/12/2016 None Annual Medicare Wellness Exam Life Satisfaction satisfied 03/12/2016 None Annual Medicare Wellness Exam Motor Vehicle Safety always fastens seat belt: y 03/12/2016 None Annual Medicare Wellness Exam Motor Vehicle Safety drives after drinking: n 03/12/2016 None Annual Medicare Wellness Exam Motor Vehicle Safety rides with someone who has been drinking: n 2015 None Annual Medicare Wellness Exam Nutrition servings of fried food / high fat foods per day: 2 2015 None Annual Medicare Wellness Exam Nutrition servings of high fiber / whole grain per day: 1 03/12/2016 None Annual Medicare Wellness Exam Nutrition servings of vegetables / fruit per day: 1 03/12/2016 None Annual Medicare Wellness Exam Smoking and Tobacco Use non smoker 03/12/2016 None Annual Medicare Wellness Exam Social & Emotional Support always 03/12/2016 None Annual Medicare Wellness Exam Stress some of the time 03/12/2016 None Annual Medicare Wellness Exam Sun Exposure protects skin when outdoors: n 03/12/2016 None hypertension Quality chronic 03/10/2016 None hypertension Onset and Resolution ongoing 03/10/2016 None hypertension Onset of Symptom during adulthood 03/10/2016 None hypertension Alleviating Factors medication 03/10/2016 None hypertension Exacerbating Factors change in dietary habits 03/10/2016 None hypertension Exacerbating Factors stress 03/10/2016 None hypertension Pertinent Findings dizziness 03/10/2016 (occasional) hypertension Pertinent Findings Denies dyspnea 03/10/2016 None hypertension Pertinent Findings Denies edema 03/10/2016 None diabetes mellitus Onset of Symptom onset as an adult 03/10/2016 None diabetes mellitus Quality non-insulin dependent 03/10/2016 None diabetes mellitus Severity moderate 03/10/2016 None diabetes mellitus Alleviating Factors medication 03/10/2016 None diabetes mellitus Exacerbating Factors diet 03/10/2016 None diabetes mellitus Nutrition regular diet 03/10/2016 None diabetes mellitus Pertinent Findings Denies dyspnea 03/10/2016 None diabetes mellitus Pertinent Findings Denies nausea 03/10/2016 None insomnia Quality difficulty falling asleep 03/10/2016 None insomnia Quality disrupted sleep 03/10/2016 None insomnia Quality intermittent 03/10/2016 None insomnia Onset and Resolution ongoing 03/10/2016 None insomnia Onset of Symptom years ago 03/10/2016 None eye floaters Location in the right eye 03/10/2016 None eye floaters Quality brown 03/10/2016 spot eye floaters Onset and Resolution ongoing 03/10/2016 None eye floaters Quality intermittent 03/10/2016 None diabetes mellitus Test results Pt checking blood glucose readings, did not bring results to clinic 03/10/2016 None diabetes mellitus Glucose monitoring occasional glucose testing 03/10/2016 twice weekly hypertension Quality intermittent 03/10/2016 None hypertension Blood Pressure Values pt checking blood pressure - see scanned document 03/10/2016 None hypertension Quality chronic 11/06/2015 None hypertension Onset and Resolution ongoing 11/06/2015 None hypertension Onset of Symptom during adulthood 11/06/2015 None hypertension Alleviating Factors medication 11/06/2015 None hypertension Exacerbating Factors change in dietary habits 11/06/2015 None hypertension Exacerbating Factors stress 11/06/2015 None hypertension Pertinent Findings Denies dizziness 11/06/2015 None hypertension Pertinent Findings Denies dyspnea 11/06/2015 None hypertension Pertinent Findings Denies edema 11/06/2015 None diabetes mellitus Onset of Symptom onset as an adult 11/06/2015 None diabetes mellitus Quality non-insulin dependent 11/06/2015 None diabetes mellitus Severity moderate 11/06/2015 None diabetes mellitus Nutrition regular diet 11/06/2015 None diabetes mellitus Pertinent Findings Denies dizziness 11/06/2015 None diabetes mellitus Pertinent Findings Denies dyspnea 11/06/2015 None diabetes mellitus Pertinent Findings Denies nausea 11/06/2015 None insomnia Quality difficulty falling asleep 11/06/2015 None insomnia Quality disrupted sleep 11/06/2015 None insomnia Quality intermittent 11/06/2015 None insomnia Onset and Resolution ongoing 11/06/2015 None insomnia Onset of Symptom years ago 11/06/2015 None eye floaters Location in the right eye 11/06/2015 None eye floaters Quality acute 11/06/2015 None eye floaters Quality brown 11/06/2015 spot eye floaters Onset and Resolution ongoing 11/06/2015 None hypertension Blood Pressure Values patient checking blood pressure at home - did not bring in readings 11/06/2015 None diabetes mellitus Test results Pt checking blood glucose readings, did not bring results to clinic 11/06/2015 None diabetes mellitus Glucose monitoring occasional glucose testing 11/06/2015Mondays and diabetes mellitus Exacerbating Factors diet 11/06/2015 None diabetes mellitus Alleviating Factors medication 11/06/2015 None hypertension Quality chronic 08/26/2015 None hypertension Onset and Resolution ongoing 08/26/2015 None hypertension Onset of Symptom during adulthood 08/26/2015 None hypertension Blood Pressure Values not checking blood pressure at home 08/26/2015 None hypertension Alleviating Factors medication 08/26/2015 None hypertension Exacerbating Factors change in dietary habits 08/26/2015 None hypertension Exacerbating Factors stress 08/26/2015 None hypertension Pertinent Findings Denies dyspnea 08/26/2015 None hypertension Pertinent Findings Denies edema 08/26/2015 None diabetes mellitus Onset of Symptom onset as an adult 08/26/2015 None diabetes mellitus Quality non-insulin dependent 08/26/2015 None diabetes mellitus Severity moderate 08/26/2015 None diabetes mellitus Nutrition regular diet 08/26/2015 None diabetes mellitus Pertinent Findings lethargy 08/26/2015 -feels that he is tired all the time- diabetes mellitus Pertinent Findings Denies nausea 08/26/2015 None insomnia Quality difficulty falling asleep 08/26/2015 -improved insomnia Quality disrupted sleep 08/26/2015 -awake every 2 hours insomnia Quality intermittent 08/26/2015 None insomnia Onset and Resolution ongoing 08/26/2015 None insomnia Onset of Symptom years ago 08/26/2015 None eye floaters Location in the right eye 08/26/2015 None eye floaters Quality acute 08/26/2015 None eye floaters Quality brown 08/26/2015 spot hypertension Pertinent Findings Denies dizziness 08/26/2015 None diabetes mellitus Test results Pt checking blood glucose readings, did not bring results to clinic 08/26/2015 None diabetes mellitus Glucose monitoring occasional glucose testing 08/26/2015 - checks twice weekly usually diabetes mellitus Pertinent Findings Denies dizziness 08/26/2015 None diabetes mellitus Pertinent Findings Denies dyspnea 08/26/2015 None eye floaters Onset and Resolution ongoing 08/26/2015 None hypertension Quality chronic 07/29/2015 None hypertension Onset and Resolution ongoing 07/29/2015 None hypertension Onset of Symptom during adulthood 07/29/2015 None hypertension Blood Pressure Values not checking blood pressure at home 07/29/2015 None hypertension Alleviating Factors medication 07/29/2015 None hypertension Exacerbating Factors change in dietary habits 07/29/2015 None hypertension Exacerbating Factors stress 07/29/2015 None hypertension Pertinent Findings Denies dyspnea 07/29/2015 None diabetes mellitus Onset of Symptom onset as an adult 07/29/2015 None diabetes mellitus Quality non-insulin dependent 07/29/2015 None diabetes mellitus Severity moderate 07/29/2015 None diabetes mellitus Nutrition regular diet 07/29/2015 None diabetes mellitus Pertinent Findings Denies increased hunger 07/29/2015 None diabetes mellitus Pertinent Findings lethargy 07/29/2015 -feels that he is tired all the time- diabetes mellitus Pertinent Findings Denies nausea 07/29/2015 None hypertension Pertinent Findings Denies edema 07/29/2015 None diabetes mellitus Glucose monitoring occasional glucose testing 07/29/2015 - checks twice weekly on Tue and diabetes mellitus Test results Pt checking blood glucose readings, did not bring results to clinic 07/29/2015 None diabetes mellitus Glucose monitoring fasting 07/29/2015 None cough Quality acute None cough Quality intermittent 07/29/2015 None cough Quality dry None cough Onset and Resolution ongoing 07/29/2015 None cough Onset of Symptom 1 months ago 07/29/2015 None cough Pertinent Findings Denies fever 07/29/2015 None cough Pertinent Findings Denies chills 07/29/2015 None insomnia Onset and Resolution ongoing 07/29/2015 None insomnia Quality disrupted sleep 07/29/2015 None insomnia Quality difficulty falling asleep 07/29/2015 None insomnia Quality intermittent 07/29/2015 None insomnia Onset of Symptom _ years ago 07/29/2015 None eye floaters Location in the right eye 07/29/2015 None eye floaters Quality brown 07/29/2015 spot eye floaters Quality acute 07/29/2015 None hypertension Quality chronic 04/29/2015 None hypertension Onset and Resolution ongoing 04/29/2015 None hypertension Onset of Symptom during adulthood 04/29/2015 None hypertension Blood Pressure Values not checking blood pressure at home 04/29/2015 None hypertension Alleviating Factors medication 04/29/2015 None hypertension Exacerbating Factors change in dietary habits 04/29/2015 None hypertension Exacerbating Factors stress 04/29/2015 None diabetes mellitus Onset of Symptom onset as an adult 04/29/2015 None diabetes mellitus Quality non-insulin dependent 04/29/2015 None diabetes mellitus Severity moderate 04/29/2015 None diabetes mellitus Nutrition regular diet 04/29/2015 None hypertension Pertinent Findings Denies dyspnea 04/29/2015 None hypertension Pertinent Findings dizziness 04/29/2015 -comes and goes- trouble with his left ear hypertension Pertinent Findings Denies edema 04/29/2015 None diabetes mellitus Test results Pt checking blood glucose readings, did not bring results to clinic 04/29/2015 None diabetes mellitus Glucose monitoring occasional glucose testing 04/29/2015 checks twice weekly diabetes mellitus Pertinent Findings Denies increased hunger 04/29/2015 None diabetes mellitus Pertinent Findings lethargy 04/29/2015 -feels that he is tired all the time- diabetes mellitus Pertinent Findings Denies nausea 04/29/2015 None hypertension Blood Pressure Values not checking blood pressure at home 10/23/2014 None hypertension Onset of Symptom during adulthood 10/23/2014 None hypertension Alleviating Factors medication 10/23/2014 None diabetes mellitus Quality non-insulin dependent 10/23/2014 None diabetes mellitus Glucose monitoring occasional glucose testing 10/23/2014 None diabetes mellitus Onset of Symptom onset as an adult 10/23/2014 None diabetes mellitus Nutrition regular diet 10/23/2014 None diabetes mellitus Exercise no exercise 10/23/2014 None hypertension Onset and Resolution ongoing 10/23/2014 None hypertension Quality chronic 10/23/2014 None hypertension Exacerbating Factors stress 10/23/2014 None hypertension Exacerbating Factors change in dietary habits 10/23/2014 None diabetes mellitus Severity moderate 10/23/2014 None Advance Directives No Advance Directive data Encounters Encounter Performer Location Codes Date ([id number]) [id number] EST. PATIENT, LEVEL IV Diagnosis: Essential (primary) hypertension[ICD10: I10] Diagnosis: Chronic kidney disease, stage 3 (moderate)[ICD10: N18.3] Diagnosis: Type 2 diabetes mellitus with hyperglycemia[ICD10: E11.65] Virginie Isaac MD , [facility] CPT-4: 52965 03/07/2018 ([id number]) 47583 EST. PATIENT, LEVEL IV Diagnosis: Type 2 diabetes mellitus with hyperglycemia[ICD10: E11.65] Diagnosis: Chronic kidney disease, stage 3 (moderate)[ICD10: N18.3] Diagnosis: Essential (primary) hypertension[ICD10: I10] Virginie Isaac MD, [facility] CPT-4: 61434 01/30/2018 ([id number]) 55265 EST. PATIENT, LEVEL IV Diagnosis: Essential (primary) hypertension[ICD10: I10] Diagnosis: Type 2 diabetes mellitus without complications[ICD10: E11.9] Diagnosis: Malignant neoplasm of prostate[ICD10: C61] Diagnosis: Chronic kidney disease, stage 3 (moderate)[ICD10: N18.3] Virginie Isaac MD [facility] CPT-4: 60622 09/07/2017 ([id number]) 35911 EST. PATIENT, LEVEL IV Diagnosis: Type 2 diabetes mellitus without complications[ICD10: E11.9] Diagnosis: Essential (primary) hypertension[ICD10: I10] Diagnosis: Changes in skin texture[ICD10: R23.4] Diagnosis: Chronic kidney disease, stage 3 (moderate)[ICD10: N18.3] Virginie Isaac MD [facility] CPT-4: 90603 05/05/2017 ([id number]) Miscellaneous no charge Diagnosis: Abnormal weight loss[ICD10: R63.4] Virginie Isaac MD [facility] CPT-4: 19959 2017 ([id number]) Miscellaneous no charge Diagnosis: Abnormal weight loss[ICD10: R63.4] Virginie Isaac MD [facility] CPT-4: 11612 03/03/2017 ([id number]) 72332 EST. PATIENT, LEVEL III Diagnosis: Type 2 diabetes mellitus with hyperglycemia[ICD10: E11.65] Diagnosis: Essential (primary) hypertension[ICD10: I10] Virginie Isaac MD [facility] CPT-4: 46757 02/02/2017 ([id number]) 79053 EST. PATIENT, LEVEL IV Diagnosis: Type 2 diabetes mellitus with hyperglycemia[ICD10: E11.65] Diagnosis: Essential (primary) hypertension[ICD10: I10] Diagnosis: Chronic kidney disease, stage 3 (moderate)[ICD10: N18.3] Virginie Isaac MD [facility] CPT-4: 34992 01/04/2017 ([id number]) 76872 EST. PATIENT, LEVEL IV Diagnosis: Type 2 diabetes mellitus with hyperglycemia[ICD10: E11.65] Diagnosis: Essential (primary) hypertension[ICD10: I10] Diagnosis: Chronic kidney disease, stage 3 (moderate)[ICD10: N18.3] Diagnosis: Elevated prostate specific antigen [PSA][ICD10: R97.20] Virginie Isaac MD [facility] CPT-4: 59079 11/16/2016 ([id number]) 95117 EST. PATIENT, LEVEL IV Diagnosis: Essential (primary) hypertension[ICD10: I10] Diagnosis: Type 2 diabetes mellitus with hyperglycemia[ICD10: E11.65] Diagnosis: Mixed hyperlipidemia[ICD10: E78.2] Virginie Isaac MD [facility] CPT-4: 36221 07/19/2016 ([id number]) 42450 EST. PATIENT, LEVEL IV Diagnosis: Type 2 diabetes mellitus with hyperglycemia[ICD10: E11.65] Diagnosis: Essential (primary) hypertension[ICD10: I10] Diagnosis: Mixed hyperlipidemia[ICD10: E78.2] Virginie Isaac MD [facility] CPT-4: 51059 03/10/2016 ([id number]) 61200 EST. PATIENT, LEVEL III Diagnosis: Essential (primary) hypertension[ICD10: I10] Diagnosis: Type 2 diabetes mellitus with hyperglycemia[ICD10: E11.65] Diagnosis: Hyperlipidemia, unspecified[ICD10: E78.5] Virginie Isaac MD [facility] CPT-4: 75903 11/06/2015 ([id number]) Miscellaneous no charge Diagnosis: Essential (primary) hypertension[ICD10: I10] Scarlett Isaac MD [facility] CPT-4: 77277 09/09/2015 ([id number]) 19822 EST. PATIENT, LEVEL III Diagnosis: Essential (primary) hypertension[ICD10: I10] Diagnosis: Other skin changes[ICD10: R23.8] Virginie Isaac MD [facility] CPT-4: 44880 08/26/2015 ([id number]) [id number] EST. PATIENT, LEVEL IV Diagnosis: Essential (primary) hypertension[ICD10: I10] Diagnosis: Unspecified amblyopia, right eye[ICD10: H53.001] Diagnosis: Other skin changes[ICD10: R23.8] Virginie Isaac MD [facility] CPT-4: 88359 07/29/2015 ([id number]) 85521 EST. PATIENT, LEVEL IV Diagnosis: Type 2 diabetes mellitus with hyperglycemia[ICD10: E11.65] Diagnosis: Essential (primary) hypertension[ICD10: I10] Diagnosis: Hyperlipidemia, unspecified[ICD10: E78.5] [facility] CPT-[facility]: 47107 04/29/2015 ([id number]) OFFICE VISIT, NEW - LEVEL 4 Diagnosis: ESSENTIAL HYPERTENSION[ICD9: 401.9] Diagnosis: DIABETES TYPE II[ICD9: 250.00] Diagnosis: ACTINIC KERATOSIS[ICD9: 702.0] Diagnosis: Impacted cerumen[ICD9: 380.4] [facility] CPT- 4: 70705 10/23/2014 Plan of Care Planned Activity Notes Codes Status Date Visit Plan: Hypertension -at home, blood pressure is well controlled - continue with current medications, continue with no added salt diet. Pt has been encouraged to exercise daily. The pt has been advised to call the office if there are any acute concerns about change in blood pressure readings at home. Diabetes Mellitus - controlled - per recent FSBS reports. I have recommended for the patient to have follow up labs prior to the next office visit. The patient has been instructed to continue with current medications as previously directed, continue with regular FSBS monitoring to assure continued control of diabetes. Pt to call for any acute concerns, complaints, or if the blood glucose readings are starting to become less controlled. CKD - symptoms improved after stopping hctz. 03/07/2018 Patient Education: Patient Medication Summary Completed 03/07/2018 Patient Education: Patient Medication Summary Completed 03/03/2018 Visit Plan: Diabetes Mellitus - controlled - per recent FSBS reports. I have recommended for the patient to have follow up labs prior to the next office visit. The patient has been instructed to continue with current medications as previously directed, continue with regular FSBS monitoring to assure continued control of diabetes. Pt to call for any acute concerns, complaints, or if the blood glucose readings are starting to become less controlled. Hypertension - well controlled - continue with current medications, continue with no added salt diet. Pt has been encouraged to exercise daily. The pt has been advised to call the office if there are any acute concerns about change in blood pressure readings at home. Stage 3 renal failure - reviewed with patient - again - the need for the patient to cut out hctz and I have changed his blood pressure medication from bisoprolol/hctz to bisoprolol. I have also given his the renal diet protocol. I have - multiple times in the past - recommended that he needs to see a [facility], but Suleman is not interested at this time. He has agreed to have repeat bmp in one month off of the hctz and to start on renal diet. Prostate cancer - continue with plans to be seen by Dr. Modi at the cancer center. 01/30/2018 Appointment: [phone] [id number] [place] (15 min) Moderate 01/30/2018 Patient Education: Patient Medication Summary Completed 01/30/2018 Appointment: [phone] [id number] [place] (15 min) Moderate 01/10/2018 Visit Plan: Diabetes Mellitus - not optimally controlled - per recent FSBS report and Hgba1c of 6.5. I have recommended for the patient to have follow up labs prior to the next office visit. The patient has been instructed to continue with current medications as previously directed, continue with regular FSBS monitoring to assure continued control of diabetes. Pt to call for any acute concerns, complaints, or if the blood glucose readings are starting to become less controlled. Hypertension - well controlled - continue with current medications, continue with no added salt diet. Pt has been encouraged to exercise daily. The pt has been advised to call the office if there are any acute concerns about change in blood pressure readings at home. Prostate cancer - recommended pt to call Dr. Harrison to get his Prostate radiation seeds implanted. Stage 3 renal disease - pt is not interested in seeing a [facility]lier as has been recommended to patient. 09/07/2017 Appointment: [phone] [id number] [place] (15 min) Moderate 09/07/2017 Patient Education: Patient Medication Summary Completed 09/07/2017 Visit Plan: Diabetes Mellitus - not optimally controlled - per recent FSBS reports. I have recommended for the patient to have follow up labs prior to the next office visit. He has again refused to start on injections as I have recommended. The patient has been instructed to continue with current medications as previously directed, continue with regular FSBS monitoring to assure continued control of diabetes. Pt to call for any acute concerns, complaints, or if the blood glucose readings are starting to become less controlled. He has been advised on changes to his diet, need for exercise. He agreed that he would re-consider weekly injections if his Hgba1c is elevated. Large, rapidly changing nodular skin lesion on left forearm and small new lesion on posterior left deltoid- I have recommended a referral to Dr. Frances for skin lesion, and I called Dr. Frances's office they asked for Suleman to be seen today for possible removal of the lesion. HTN - stable - continue with current treatment. Stage 3 renal disease - pt is not interested in seeing a Enamel Applier as has been recommended to patient. Elevated PSA -pt seeing Dr. Harrison. 05/05/2017 Appointment: [phone] (15 min) Moderate 05/05/2017 Patient Education: Patient Medication Summary Completed 05/05/2017 Appointment: Scarlett Omalley WPtel: [phone] [facility] (15 min) Moderate 04/14/2017 Appointment: Nurse Visit 2017 Patient Education: Patient Medication Summary Completed 2017 Visit Plan: Medicare Exam - today we discussed the patients past history, immunizations, preventative exams/evaluations - colonoscopy, fecal occult blood testing, routine labs for renal function, glucose, cholesterol, osteoporosis evaluations, cardiovascular testing and cancer screenings. We have also discussed mental health and the signs/symptoms of depression. The patient was advised of home safety evaluations and the need to make sure that as the aging process continues, we need to be aware of different ways to make the home a safer place to reside. The patient has also been counseled that exercise is necessary - and of utmost importance as we age to help decrease fall risk and to maintain independece in the home. Today we discussed the need for the patient to create paperwork for Advanced directives as well as for the patient to provide this office with a copy of her DOPA paperwork for health care surrogate. 03/15/2017 Appointment: Niecy Sullivan [facility]el[phone] [facility] - Annual Wellness Visit 03/15/2017 Patient Education: Patient Medication Summary Completed 03/15/2017 Appointment: Nurse Visit 03/03/2017 Patient Education: Patient Medication Summary Completed 03/03/2017 Visit Plan: Diabetes Mellitus - controlled - per recent FSBS reports. I have recommended for the patient to have follow up labs prior to the next office visit. The patient has been instructed to continue with current medications as previously directed, continue with regular FSBS monitoring to assure continued control of diabetes. Pt to call for any acute concerns, complaints, or if the blood glucose readings are starting to become less controlled. Significantly improved blood glucose with weight loss and dietary control. Hypertension - well controlled - continue with current medications, continue with no added salt diet. Pt has been encouraged to exercise daily. The pt has been advised to call the office if there are any acute concerns about change in blood pressure readings at home. 02/02/2017 Appointment: Virgin[phone] (15 min) Moderate 02/02/2017 Patient Education: Patient Medication Summary Completed 02/02/2017 Patient Education: Hypertension Completed 02/02/2017 Visit Plan: Diabetes Mellitus - controlled - per recent FSBS reports. I have recommended for the patient to have follow up labs prior to the next office visit. The patient has been instructed to continue with current medications as previously directed, continue with regular FSBS monitoring to assure continued control of diabetes. Pt to call for any acute concerns, complaints, or if the blood glucose readings are starting to become less controlled. Hypertension - well controlled - continue with current medications, continue with no added salt diet. Pt has been encouraged to exercise daily. The pt has been advised to call the office if there are any acute concerns about change in blood pressure readings at home. pt does not want to go see the kidney specialist now - he also does not want to start on new diabetic medication at this time 01/04/2017 Patient Education: Patient Medication Summary Completed 01/04/2017 Patient Education: Hypertension Completed 01/04/2017 Appointment: Virgin[phone] [facility] [place] (15 min) Moderate 12/23/2016 Appointment: Virginie Isaac [facility]el[phone] [place] (15 min) Moderate 12/22/2016 Visit Plan: Hypertension - well controlled - continue with current medications, continue with no added salt diet. Pt has been encouraged to exercise daily. The pt has been advised to call the office if there are any acute concerns about change in blood pressure readings at home. Elevated PSA - send a copy of labs for prostate to dr. harrison. Elevated creatinine - stop METFORMIN and also STOP MELOXICAM - these medications are affecting your kidneys and I want to stop them to see if stopping them help to improve your renal function. START tylenol Arthritis 650mg three times daily if needed for arthritis pain or if you have fevers. Repeat a chemistry panel in one month Diabetes Mellitus - I have discussed with the patient, he needs to think about going to a diabetic education class, at your next appointment if you let us know if you are willing to go- we will get you set up for diabetic education. Pt has been informed that he needs to cut back on corn, peas, carrots, potatoes , pasta, bread, and excessive fruit intake. Try to cut back on pop, sweet drinks , NO JUICE unless it is no sugar added orange juice. 11/16/2016 Appointment: Virginie Isaac WPtel: [address] [place], [place] [id number] [place] (15 min) Moderate 11/16/2016 Patient Education: Patient Medication Summary Completed 11/16/2016 Patient Education: Obesity Completed 11/16/2016 Visit Plan: Hypertension - well controlled -for the patient - he also refuses to change medications at this time. He is to continue with current medications, continue with no added salt diet. Pt has been encouraged to exercise daily. The pt has been advised to call the office if there are any acute concerns about change in blood pressure readings at home. DM - pt has been drinking regular pop - i have advused against regular soda intake - pt is not interested/willing to increase his metformin at this time. He will cut out the soda, increase water intake, and monitor symptoms. Hyperlipidemia - pt has been counseled about appropriate diet, exercise, and need for low fat food choices. I have discussed the need for the patient to take medications as prescribed. If the patient has negative side effects from the medication, they are to CALL the office and not abruptly discontinue the medication without discussion with a practitioner in the office. We will check labs in 3-6 months for follow up on the patient's chronic medical problem and to assure normal liver response to medications. 07/19/2016 Appointment: Virginie Isaac WPtel: [facility] (15 min) Moderate 07/19/2016 Patient Education: Patient Medication Summary Completed 07/19/2016 Patient Education: Obesity Completed 07/19/2016 Patient Education: Hypertension Completed 07/19/2016 Appointment: [place] W[place]el: [facility] (15 min) Moderate 07/06/2016 Visit Plan: Medicare Exam - today we discussed the patients past history, immunizations, preventative exams/evaluations - colonoscopy, fecal occult blood testing, routine labs for renal function, glucose, cholesterol, osteoporosis evaluations, cardiovascular testing and cancer screenings. We have also discussed mental health and the signs/symptoms of depression. The patient was advised of home safety evaluations and the need to make sure that as the aging process continues, we need to be aware of different ways to make the home a safer place to reside. The patient has also been counseled that exercise is necessary - and of utmost importance as we age to help decrease fall risk and to maintain independece in the home. Today we discussed the need for the patient to create paperwork for Advanced directives as well as for the patient to provide this office with a copy of her DOPA paperwork for health care surrogate. 03/12/2016 Appointment: Niecy Sullivan WPtel: [phone] [facility] - Annual Wellness Visit 03/12/2016 Patient Education: Patient Medication Summary Completed 03/12/2016 Patient Education: Obesity Completed 03/12/2016 Visit Plan: Hypertension - well controlled - continue with current medications, continue with no added salt diet. Pt has been encouraged to exercise daily. The pt has been advised to call the office if there are any acute concerns about change in blood pressure readings at home. Diabetes Mellitus - controlled - per recent FSBS reports. I have recommended for the patient to have follow up labs prior to the next office visit. The patient has been instructed to continue with current medications as previously directed, continue with regular FSBS monitoring to assure continued control of diabetes. Pt to call for any acute concerns, complaints, or if the blood glucose readings are starting to become less controlled. Insomnia- discussed need to start on melatonin 3mg at hs 03/10/2016 Appointment: Virginie Isaac [facility]el[phone] (15 min) Moderate 03/10/2016 Patient Education: Patient Medication Summary Completed 03/10/2016 Patient Education: Obesity Completed 03/10/2016 Visit Plan: Hypertension - well controlled - continue with current medications, continue with no added salt diet. Pt has been encouraged to exercise daily. The pt has been advised to call the office if there are any acute concerns about change in blood pressure readings at home. Diabetes Mellitus - controlled - per recent FSBS reports. I have recommended for the patient to have follow up labs prior to the next office visit. The patient has been instructed to continue with current medications as previously directed, continue with regular FSBS monitoring to assure continued control of diabetes. Pt to call for any acute concerns, complaints, or if the blood glucose readings are starting to become less controlled. Hyperlipidemia - continue with simvastatin. 11/06/2015 Patient Education: Patient Medication Summary Completed 11/06/2015 Patient Education: Obesity Completed 11/06/2015 Appointment: Niecy Sullivan WPtel: [phone] (30 min) Complex 10/27/2015 Appointment: Nurse Visit 09/09/2015 Patient Education: Patient Medication Summary Completed 09/09/2015 Patient Education: Hypertension Completed 09/09/2015 Visit Plan: Hypertension - uncontrolled - the patient's medications have been modified as documented in the visit note. The patient has been counseled to cut back on salt in diet for a no added salt diet, low fat diet, start an exercise program with low weight bearing exercises and higher aerobic activity for heart health. The patient is to check blood pressure readings as an outpatient and either fax, call, or email the readings to the office next week for practitioner to review. The pt is to call for acute concerns. Actinic Keratosis - improving - two spots needed to have repeat treatment - one on left buddhism and one on posterior scalp. 08/26/2015 Patient Education: Patient Medication Summary Completed 08/26/2015 Patient Education: Hypertension Completed 08/26/2015 Referral: Tariq Ramirez WPtel: [address] [place], [place] [id number] Referral Completed 08/05/2015 Visit Plan: Hypertension - uncontrolled - the patient's medications have been modified as documented in the visit note. The patient has been counseled to cut back on salt in diet for a no added salt diet, low fat diet, start an exercise program with low weight bearing exercises and higher aerobic activity for heart health. The patient is to check blood pressure readings as an outpatient and either fax, call, or email the readings to the office next week for practitioner to review. The pt is to call for acute concerns. Vision changes - appt on August 04 at 3:15 Skin changes - recommended use of efudex. 07/29/2015 Appointment: Virignie Isaac WPtel: [address] [place], [place] [id number] (15 min) Moderate 07/29/2015 Patient Education: Patient Medication Summary Completed 07/29/2015 Patient Education: Obesity Completed 07/29/2015 Patient Education: Hypertension Completed 07/29/2015 Care Plan: Referral Order SNOMED-CT : [id number] Pending 07/29/2015 Patient Education: Patient Medication Summary Completed 05/08/2015 Appointment: Lab Draw 05/01/2015 Visit Plan: Hypertension - well controlled - continue with current medications, continue with no added salt diet. Pt has been encouraged to exercise daily. The pt has been advised to call the office if there are any acute concerns about change in blood pressure readings at home. Diabetes Mellitus - controlled - per recent FSBS reports. I have recommended for the patient to have follow up labs prior to the next office visit. The patient has been instructed to continue with current medications as previously directed, continue with regular FSBS monitoring to assure continued control of diabetes. Pt to call for any acute concerns, complaints, or if the blood glucose readings are starting to become less controlled. Actinic keratosis - treated with cryotherapy. on right forearm, on left and right sideburns and on scalp. 04/29/2015 Patient Education: Patient Medication Summary Completed 04/29/2015 Patient Education: Hypertension Completed 04/29/2015 Care Plan: COMPLETE CBC AUTOMATED LOINC : 16083-3 Ordered 04/29/2015 Care Plan: MICROALBUMIN QUANTITATIVE LOINC : 18937-7 Ordered 04/29/2015 Appointment: (15 min) Moderate 03/31/2015 Appointment: Virginie Isaac WPtel: [phone] [facility] [place] (15 min) Moderate 01/22/2015 Visit Plan: Hypertension - well controlled - continue with current medications, continue with no added salt diet. Pt has been encouraged to exercise daily. The pt has been advised to call the office if there are any acute concerns about change in blood pressure readings at home. Diabetes Mellitus - controlled per patient report, however I have recommended for the patient to have follow up labs prior to the next office visit. The patient has been instructed to continue with current medications as previously directed, continue with regular FSBS monitoring to assure continued control of diabetes. Pt to call for any acute concerns, complaints, or if the blood glucose readings are starting to become less controlled. Actinic Keratosis - cryotherapy of lesion on right cheek and scalp Cerumen IMpaction - use sweet oil, or olive oil , or debrox ear wax drops to the plugged ear nightly until hearing improves or until next office visit. 10/23/2014 Visit Plan: Hypertension - well controlled - continue with current medications, continue with no added salt diet. Pt has been encouraged to exercise daily. The pt has been advised to call the office if there are any acute concerns about change in blood pressure readings at home. Diabetes Mellitus - controlled per patient report, however I have recommended for the patient to have follow up labs prior to the next office visit. The patient has been instructed to continue with current medications as previously directed, continue with regular FSBS monitoring to assure continued control of diabetes. Pt to call for any acute concerns, complaints, or if the blood glucose readings are starting to become less controlled. Actinic Keratosis - cryotherapy of lesion on right cheek and scalp Cerumen IMpaction - use sweet oil, or olive oil , or debrox ear wax drops to the plugged ear nightly until hearing improves or until next office visit. 10/23/2014 Appointment: Virginie Isaac [facility]Ptel: [phone] [place] ([place]) New Patient 10/23/2014 Patient Education: Patient Medication Summary Completed 10/23/2014 Patient Education: Hypertension Completed 10/23/2014 Referral: Tariq Ramirez WPtel: [address] [place], [place] [id number] [place] Referral Appointment Requested Instructions Comment . Diabetes Mellitus - controlled - per recent FSBS reports. I have recommended for the patient to have follow up labs prior to the next office visit. The patient has been instructed to continue with current medications as previously directed, continue with regular FSBS monitoring to assure continued control of diabetes. Pt to call for any acute concerns, complaints, or if the blood glucose readings are starting to become less controlled. Hypertension - well controlled - continue with current medications, continue with no added salt diet. Pt has been encouraged to exercise daily. The pt has been advised to call the office if there are any acute concerns about change in blood pressure readings at home. Stage 3 renal failure - reviewed with patient - again - the need for the patient to cut out hctz and I have changed his blood pressure medication from bisoprolol/hctz to bisoprolol. I have also given his the renal diet protocol. I have - multiple times in the past - recommended that he needs to see a Enamel Applier, but Suleman is not interested at this time. He has agreed to have repeat bmp in one month off of the hctz and to start on renal diet. Prostate cancer - continue with plans to be seen by Dr. Modi at the cancer center. . Medicare Exam - today we discussed the patients past history, immunizations, preventative exams/evaluations - colonoscopy, fecal occult blood testing, routine labs for renal function, glucose, cholesterol, osteoporosis evaluations, cardiovascular testing and cancer screenings. We have also discussed mental health and the signs/symptoms of depression. The patient was advised of home safety evaluations and the need to make sure that as the aging process continues, we need to be aware of different ways to make the home a safer place to reside. The patient has also been counseled that exercise is necessary - and of utmost importance as we age to help decrease fall risk and to maintain independece in the home. Today we discussed the need for the patient to create paperwork for Advanced directives as well as for the patient to provide this office with a copy of her DOPA paperwork for health care surrogate. pt to have hgba1c one week before next appt . Diabetes Mellitus - not optimally controlled - per recent FSBS report and Hgba1c of 6.5. I have recommended for the patient to have follow up labs prior to the next office visit. The patient has been instructed to continue with current medications as previously directed, continue with regular FSBS monitoring to assure continued control of diabetes. Pt to call for any acute concerns, complaints, or if the blood glucose readings are starting to become less controlled. Hypertension - well controlled - continue with current medications, continue with no added salt diet. Pt has been encouraged to exercise daily. The pt has been advised to call the office if there are any acute concerns about change in blood pressure readings at home. Prostate cancer - recommended pt to call Dr. Harrison to get his Prostate radiation seeds implanted. Stage 3 renal disease - pt is not interested in seeing a Enamel Applier as has been recommended to patient. use sweet oil, or olive oil, or debrox ear wax drops to the plugged ear nightly until hearing improves or until next office visit. . Hypertension - well controlled - continue with current medications, continue with no added salt diet. Pt has been encouraged to exercise daily. The pt has been advised to call the office if there are any acute concerns about change in blood pressure readings at home. Diabetes Mellitus - controlled per patient report, however I have recommended for the patient to have follow up labs prior to the next office visit. The patient has been instructed to continue with current medications as previously directed, continue with regular FSBS monitoring to assure continued control of diabetes. Pt to call for any acute concerns, complaints, or if the blood glucose readings are starting to become less controlled. Actinic Keratosis - cryotherapy of lesion on right cheek and scalp Cerumen IMpaction - use sweet oil, or olive oil, or debrox ear wax drops to the plugged ear nightly until hearing improves or until next office visit. use sweet oil, or olive oil, or debrox ear wax drops to the plugged ear nightly until hearing improves or until next office visit. . Hypertension - well controlled - continue with current medications, continue with no added salt diet. Pt has been encouraged to exercise daily. The pt has been advised to call the office if there are any acute concerns about change in blood pressure readings at home. Diabetes Mellitus - controlled per patient report, however I have recommended for the patient to have follow up labs prior to the next office visit. The patient has been instructed to continue with current medications as previously directed, continue with regular FSBS monitoring to assure continued control of diabetes. Pt to call for any acute concerns, complaints, or if the blood glucose readings are starting to become less controlled. Actinic Keratosis - cryotherapy of lesion on right cheek and scalp Cerumen IMpaction - use sweet oil, or olive oil, or debrox ear wax drops to the plugged ear nightly until hearing improves or until next office visit. get labs one week before your appt in 4 months.. Hypertension - well controlled -for the patient - he also refuses to change medications at this time. He is to continue with current medications, continue with no added salt diet. Pt has been encouraged to exercise daily. The pt has been advised to call the office if there are any acute concerns about change in blood pressure readings at home. DM - pt has been drinking regular pop - i have advused against regular soda intake - pt is not interested/willing to increase his metformin at this time. He will cut out the soda, increase water intake, and monitor symptoms. Hyperlipidemia - pt has been counseled about appropriate diet, exercise, and need for low fat food choices. I have discussed the need for the patient to take medications as prescribed. If the patient has negative side effects from the medication, they are to CALL the office and not abruptly discontinue the medication without discussion with a practitioner in the office. We will check labs in 3-6 months for follow up on the patient's chronic medical problem and to assure normal liver response to medications. . Hypertension -at home, blood pressure is well controlled - continue with current medications, continue with no added salt diet. Pt has been encouraged to exercise daily. The pt has been advised to call the office if there are any acute concerns about change in blood pressure readings at home. Diabetes Mellitus - controlled - per recent FSBS reports. I have recommended for the patient to have follow up labs prior to the next office visit. The patient has been instructed to continue with current medications as previously directed, continue with regular FSBS monitoring to assure continued control of diabetes. Pt to call for any acute concerns, complaints, or if the blood glucose readings are starting to become less controlled. CKD - symptoms improved after stopping hctz. . Hypertension - uncontrolled - the patient's medications have been modified as documented in the visit note. The patient has been counseled to cut back on salt in diet for a no added salt diet, low fat diet, start an exercise program with low weight bearing exercises and higher aerobic activity for heart health. The patient is to check blood pressure readings as an outpatient and either fax , call, or email the readings to the office next week for practitioner to review. The pt is to call for acute concerns. Actinic Keratosis - improving - two spots needed to have repeat treatment - one on left buddhism and one on posterior scalp. . Medicare Exam - today we discussed the patients past history, immunizations, preventative exams/evaluations - colonoscopy, fecal occult blood testing, routine labs for renal function, glucose, cholesterol, osteoporosis evaluations, cardiovascular testing and cancer screenings. We have also discussed mental health and the signs/symptoms of depression. The patient was advised of home safety evaluations and the need to make sure that as the aging process continues, we need to be aware of different ways to make the home a safer place to reside. The patient has also been counseled that exercise is necessary - and of utmost importance as we age to help decrease fall risk and to maintain independece in the home. Today we discussed the need for the patient to create paperwork for Advanced directives as well as for the patient to provide this office with a copy of her DOP[employer] paperwork for health care surrogate. increase the bisoprolol/hctz to one pill twice daily TuesdayAugust 04 at 3:15pm - Dr. Hunt . Hypertension - uncontrolled - the patient's medications have been modified as documented in the visit note. The patient has been counseled to cut back on salt in diet for a no added salt diet, low fat diet, start an exercise program with low weight bearing exercises and higher aerobic activity for heart health. The patient is to check blood pressure readings as an outpatient and either fax , call, or email the readings to the office next week for practitioner to review. The pt is to call for acute concerns. Vision changes - appt on August 04 at 3:15 Skin changes - recommended use of efudex. . Hypertension - well controlled - continue with current medications, continue with no added salt diet. Pt has been encouraged to exercise daily. The pt has been advised to call the office if there are any acute concerns about change in blood pressure readings at home. Diabetes Mellitus - controlled - per recent FSBS reports. I have recommended for the patient to have follow up labs prior to the next office visit. The patient has been instructed to continue with current medications as previously directed, continue with regular FSBS monitoring to assure continued control of diabetes. Pt to call for any acute concerns, complaints, or if the blood glucose readings are starting to become less controlled. Hyperlipidemia - continue with simvastatin. . Hypertension - well controlled - continue with current medications, continue with no added salt diet. Pt has been encouraged to exercise daily. The pt has been advised to call the office if there are any acute concerns about change in blood pressure readings at home. Diabetes Mellitus - controlled - per recent FSBS reports. I have recommended for the patient to have follow up labs prior to the next office visit. The patient has been instructed to continue with current medications as previously directed, continue with regular FSBS monitoring to assure continued control of diabetes. Pt to call for any acute concerns, complaints, or if the blood glucose readings are starting to become less controlled. Insomnia- discussed need to start on melatonin 3mg at hs . Diabetes Mellitus - controlled - per recent FSBS reports. I have recommended for the patient to have follow up labs prior to the next office visit. The patient has been instructed to continue with current medications as previously directed, continue with regular FSBS monitoring to assure continued control of diabetes. Pt to call for any acute concerns, complaints, or if the blood glucose readings are starting to become less controlled. Significantly improved blood glucose with weight loss and dietary control. Hypertension - well controlled - continue with current medications, continue with no added salt diet. Pt has been encouraged to exercise daily. The pt has been advised to call the office if there are any acute concerns about change in blood pressure readings at home. . Diabetes Mellitus - controlled - per recent FSBS reports. I have recommended for the patient to have follow up labs prior to the next office visit. The patient has been instructed to continue with current medications as previously directed, continue with regular FSBS monitoring to assure continued control of diabetes. Pt to call for any acute concerns, complaints, or if the blood glucose readings are starting to become less controlled. Hypertension - well controlled - continue with current medications, continue with no added salt diet. Pt has been encouraged to exercise daily. The pt has been advised to call the office if there are any acute concerns about change in blood pressure readings at home. pt does not want to go see the kidney specialist now - he also does not want to start on new diabetic medication at this time pt to have hgba1c one week before next appt . Diabetes Mellitus - not optimally controlled - per recent FSBS reports. I have recommended for the patient to have follow up labs prior to the next office visit. He has again refused to start on injections as I have recommended. The patient has been instructed to continue with current medications as previously directed, continue with regular FSBS monitoring to assure continued control of diabetes. Pt to call for any acute concerns, complaints, or if the blood glucose readings are starting to become less controlled. He has been advised on changes to his diet, need for exercise. He agreed that he would re-consider weekly injections if his Hgba1c is elevated. Large, rapidly changing nodular skin lesion on left forearm and small new lesion on posterior left deltoid- I have recommended a referral to Dr. Frances for skin lesion, and I called Dr. Frances's office they asked for Suleman to be seen today for possible removal of the lesion. HTN - stable - continue with current treatment. Stage 3 renal disease - pt is not interested in seeing a [facility] as has been recommended to patient. Elevated PSA -pt seeing Dr. Harrison. . Hypertension - well controlled - continue with current medications, continue with no added salt diet. Pt has been encouraged to exercise daily. The pt has been advised to call the office if there are any acute concerns about change in blood pressure readings at home. Diabetes Mellitus - controlled - per recent FSBS reports. I have recommended for the patient to have follow up labs prior to the next office visit. The patient has been instructed to continue with current medications as previously directed, continue with regular FSBS monitoring to assure continued control of diabetes. Pt to call for any acute concerns, complaints, or if the blood glucose readings are starting to become less controlled. Actinic keratosis - treated with cryotherapy. on right forearm, on left and right sideburns and on scalp. stop METFORMIN and also STOP MELOXICAM - these medications are affecting your kidneys and I want to stop them to see if stopping them help to improve your renal function. START tylenol Arthritis 650mg three times daily if needed for arthritis pain or if you have fevers. cut back on corn, peas, carrots, potatoes, pasta, bread, and excessive fruit intake. Try to cut back on pop, sweet drinks, NO JUICE unless it is no sugar added orange juice. Repeat a chemistry panel in one month think about going to a diabetic education class, at your next appointment if you let us know if you are willing to go- we will get you set up for diabetic education. . Hypertension - well controlled - continue with current medications, continue with no added salt diet. Pt has been encouraged to exercise daily. The pt has been advised to call the office if there are any acute concerns about change in blood pressure readings at home. Elevated PSA - send a copy of labs for prostate to dr. harrison. Elevated creatinine - stop METFORMIN and also STOP MELOXICAM - these medications are affecting your kidneys and I want to stop them to see if stopping them help to improve your renal function. START tylenol Arthritis 650mg three times daily if needed for arthritis pain or if you have fevers. Repeat a chemistry panel in one month Diabetes Mellitus - I have discussed with the patient, he needs to think about going to a diabetic education class, at your next appointment if you let us know if you are willing to go- we will get you set up for diabetic education. Pt has been informed that he needs to cut back on corn, peas, carrots, potatoes , pasta, bread, and excessive fruit intake. Try to cut back on pop, sweet drinks, NO JUICE unless it is no sugar added orange juice.
[2018-03-14] MEDS ORDERED: LACTATED RINGERS 1,000 ML IV PRN (06:07)
--- OUTSIDE RECORDS SUMMARY | 2018-03-14 06:08 | XMS REPORT | CCD ---
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 10/23/[address]: 811467394 Never smoker 10/23/[address]: 115936425 Never drinks alcohol 10/23/2014 Allergies, Adverse Reactions, [...] Fill Instructions simvastatin 20 mg tablet RxNorm: 694289 TAKE ONE TABLET BY MOUTH DAILY 03/06/2018 11/30/2018 Active Generic For:ZOCOR 20MG 03/06/2018 9:01:27 AM Truetest Test Strips RxNorm: TEST BLOOD SUGAR EVERY DAY 201711/26/2018 Active 01/30/2018 3:29:14 PM bisoprolol fumarate 5 mg tablet RxNorm: 581276 1 Tablet(s) PO BID 01/30/2018 08/27/2018 Active this replaces his combination pill glimepiride 2 mg tablet RxNorm: 817250 TAKE 1/2 (ONE- HALF) TABLET BY MOUTH TWICE DAILY 12/06/2017 06/03/2018 Active Generic For:AMARYL 2MG 12/06/2017 9:07:06 AM losartan 100 mg tablet RxNorm: 229746 TAKE 1 TABLET BY MOUTH DAILY 11/07/2017 06/04/2018 Active Generic For:COZAAR 100MG 11/07/2017 9:05:45 AM bisoprolol 5 mg-hydrochlorothiazide 6.25 mg tablet RxNorm: 055128 TAKE 1 TABLET BY MOUTH TWICE DAILY 09/15/20172017 Inactive Generic For:ZIAC 5-6.25MG 09/15/2017 9:07:10 AM glimepiride 2 mg tablet RxNorm: 025020 TAKE 1/2 (ONE- HALF) TABLET BY MOUTH TWICE DAILY 06/17/2017 12/05/2017 Inactive Generic For:AMARYL 2MG 06/17/2017 9:01:41 AM simvastatin 20 mg tablet RxNorm: 589176 TAKE ONE TABLET BY MOUTH DAILY 06/17/2017 03/05/2018 Inactive Generic For:ZOCOR 20MG 06/17/2017 9:01:38 AM losartan 100 mg tablet RxNorm: 279443 TAKE 1 TABLET BY MOUTH DAILY 04/18/2017 11/06/2017 Inactive Generic For:COZAAR 100MG 04/18/2017 9:40:33 AM bisoprolol 5 mg-hydrochlorothiazide 6.25 mg tablet RxNorm: 410361 TAKE 1 TABLET BY MOUTH TWICE DAILY 02/17/20172017 Inactive Generic For:ZIAC 5-6.25MG 02/17/2017 9:04:42 AM glimepiride 2 mg tablet RxNorm: 824583 1/2 Tablet(s) BID 201606/16/2017 Inactive Generic For:AMARYL 2MG 07/22/2016 9:03:39 AM Zithromax 250 mg tablet RxNorm: 077555 two pills on day #1 then 1 Tablet(s) PO daily 01/04/2017 01/08/2017 Inactive zpackx1 glimepiride 2 mg tablet RxNorm: 111189 1 Tablet(s) TAKE 1 TABLET BY MOUTH TWICE DAILY 11/17/2016 02/01/2017 Inactive Generic For:AMARYL 2MG 07/22/2016 9:03:39 AM glimepiride 2 mg tablet RxNorm: 332406 1 Tablet(s) TAKE 1 TABLET BY MOUTH TWICE DAILY 11/17/2016 11/16/2016 Inactive Generic For:AMARYL 2MG 07/22/2016 9:03:39 AM Ness Allergy 180 mg tablet RxNorm: 542464 1 Tablet(s) PO daily 10/25/2016 10/24/2016 Inactive Zithromax 250 mg tablet RxNorm: 578608 1 Tablet(s) PO daily 10/24/2016 Inactive zpackx1 Ness Allergy 180 mg tablet RxNorm: 150080 1 Tablet(s) PO daily 10/25/2016 03/07/2017 Inactive Zithromax 250 mg tablet RxNorm: 019605 1 Tablet(s) PO daily 10/29/2016 Inactive zpackx1 glimepiride 2 mg tablet RxNorm: 777467 1/2 Tablet(s) TAKE 1 TABLET BY MOUTH TWICE DAILY 10/12/2016 11/16/2016 Inactive Generic For:AMARYL 2MG 07/22/2016 9:03:39 AM losartan 100 mg tablet RxNorm: 988762 1 Tablet(s) PO daily 04/17/2017 Inactive metformin 500 mg tablet RxNorm: 089257 TAKE 1 TABLET BY MOUTH TWICE DAILY 09/20/2016 11/15/2016 Inactive Generic For:GLUCOPHAGE 500MG 09/20/2016 9:11:58 AM simvastatin 20 mg tablet RxNorm: 318117 TAKE ONE TABLET BY MOUTH DAILY 09/20/2016 06/16/2017 Inactive Generic For:ZOCOR 20MG 09/20/2016 9:11:29 AM bisoprolol 5 mg-hydrochlorothiazide 6.25 mg tablet RxNorm: 345790 TAKE 1 TABLET BY MOUTH TWICE DAILY 07/22/20162016 Inactive Generic For:ZIAC 5-6.25MG 07/22/2016 9:03:48 AM glimepiride 2 mg tablet RxNorm: 132208 TAKE 1 TABLET BY MOUTH TWICE DAILY 07/22/2016 10/11/2016 Inactive Generic For:AMARYL 2MG 07/22/2016 9:03:39 AM meloxicam 15 mg tablet RxNorm: 584122 TAKE 1 TABLET BY MOUTH DAILY 05/24/2016 11/15/2016 Inactive Generic For:MOBIC 15MG 05/24/2016 9:12:11 AM metformin 500 mg tablet RxNorm: 321524 1 Tablet(s) BID 201609/19/2016 Inactive Generic For:GLUCOPHAGE 500MG 04/29/2015 3:46:58 PM bisoprolol 5 mg-hydrochlorothiazide 6.25 mg tablet RxNorm: 509693 TAKE 1 TABLET BY MOUTH TWICE DAILY 03/31/20162016 Inactive Generic For:ZIAC 5-6.25MG 03/31/2016 12:38:33 PM glimepiride 2 mg tablet RxNorm: 287544 TAKE 1 TABLET BY MOUTH TWICE DAILY 03/31/2016 07/21/2016 Inactive Generic For:AMARYL 2MG 03/31/2016 12:38:28 PM losartan 100 mg tablet RxNorm: 275516 1 Tablet(s) PO daily 09/19/2016 Inactive simvastatin 20 mg tablet RxNorm: 750714 1 Tablet(s) PO daily 09/18/2016 Inactive glimepiride 2 mg tablet RxNorm: 012732 1 Tablet(s) PO BID 11/2303/22/2016 Inactive meloxicam 15 mg tablet RxNorm: 641810 1 Tablet(s) PO daily 05/21/2016 Inactive bisoprolol 5 mg-hydrochlorothiazide 6.25 mg tablet RxNorm: 491156 1 Tablet(s) PO BID 11/24/2015 03/22/2016 Inactive Generic For:ZIAC 5-6.25MG 03/31/2015 4:06:14 PM03/31/2015 3:58:36 PM metformin 500 mg tablet RxNorm: 569636 1 Tablet(s) BID 201504/04/2016 Inactive Generic For:GLUCOPHAGE 500MG 04/29/2015 3:46:58 PM losartan 50 mg tablet RxNorm: 893316 1 Tablet(s) PO daily 201502/29/2016 Inactive bisoprolol 5 mg-hydrochlorothiazide 6.25 mg tablet RxNorm: 784070 1 Tablet(s) PO BID 07/29/2015 11/23/2015 Inactive Generic For:ZIAC 5-6.25MG 03/31/2015 4:06:14 PM03/31/2015 3:58:36 PM bisoprolol 5 mg-hydrochlorothiazide 6.25 mg tablet RxNorm: 311298 Tablet(s) 1 TABLET(S) BY MOUTH DAILY 07/21/20152015 Inactive Generic For:ZIAC 5-6.25MG 03/31/2015 4:06:14 PM03/31/2015 3:58:36 PM meloxicam 15 mg tablet RxNorm: 868719 1 Tablet(s) PO daily 11/17/2015 Inactive glimepiride 2 mg tablet RxNorm: 874106 1 Tablet(s) PO BID 07/2011/17/2015 Inactive metformin 500 mg tablet RxNorm: 287735 Tablet(s) TAKE 1 TABLET BY MOUTH IN THE MORNING AND 1/2 TABLET IN THE EVENING 06/16/2015 11/06/2015 Inactive Generic For: GLUCOPHAGE 500MG 04/29/2015 3:46:58 PM metformin 500 mg tablet RxNorm: 798472 Tablet(s) TAKE 1 TABLET BY MOUTH IN THE MORNING AND 1/2 TABLET IN THE EVENING 05/19/2015 06/15/2015 Inactive Generic For: GLUCOPHAGE 500MG 04/29/2015 3:46:58 PM metformin 500 mg tablet RxNorm: 680255 TAKE 1/2 (ONE- HALF) TABLET BY MOUTH DAILY BY MOUTH TWICE DAILY 04/29/20152015 Inactive Generic For:GLUCOPHAGE 500MG 04/29/2015 3:46:58 PM meloxicam 15 mg tablet RxNorm: 668039 1 Tablet(s) PO daily 07/20/2015 Inactive simvastatin 20 mg tablet RxNorm: 132189 1 Tablet(s) PO daily 12/23/2015 Inactive bisoprolol 5 mg-hydrochlorothiazide 6.25 mg tablet RxNorm: 169504 1 TABLET(S) BY MOUTH DAILY 03/31/2015 07/20/2015 Inactive Generic For:ZIAC 5-6.25MG 03/31/2015 4: 06:14 PM03/31/2015 3:58:36 PM glimepiride 2 mg tablet RxNorm: 469385 1 Tablet(s) PO BID 02/0506/04/2015 Inactive increase to BID metformin 500 mg tablet RxNorm: 178800 1/2 Tablet(s) PO BID 04/20/2015 Inactive bisoprolol 5 mg-hydrochlorothiazide 6.25 mg tablet RxNorm: 963301 1 Tablet(s) PO daily 12/05/2014 12/04/2014 Inactive bisoprolol 5 mg-hydrochlorothiazide 6.25 mg tablet RxNorm: 642623 1 Tablet(s) PO daily 12/05/2014 03/30/2015 Inactive meloxicam 15 mg tablet RxNorm: 956412 1 Tablet(s) PO daily 04/201404/01/2015 Inactive Truetest Test Strips RxNorm: Miscellaneous daily 11/20/2014 11/19/2014 Inactive Truetest Test Strips RxNorm: Miscellaneous daily 11/20/2014 11/14/2015 Inactive finasteride 5 mg tablet RxNorm: 135172 1 Tablet(s) PO daily No Start Date Active tamsulosin 0.4 mg capsule RxNorm: 673621 1 Capsule(s) PO daily No Start Date Active simvastatin 20 mg tablet RxNorm: 324781 1 Tablet(s) PO daily No Start Date 04/01/2015 Inactive meloxicam 15 mg tablet RxNorm: 593497 1 Tablet(s) PO daily No Start Date 12/02/2014 Inactive metformin 500 mg tablet RxNorm: 130469 1/2 Tablet(s) PO BID No Start Date 01/20/2015 Inactive glimepiride 2 mg tablet RxNorm: 498309 1 Tablet(s) PO daily No Start Date 02/04/2015 Inactive Ziac 5 mg-6.25 mg tablet RxNorm: 310306 1 Tablet(s) PO daily No Start Date 04/02/2015 Inactive Medication Administered No Medication Administered data Immunizations No Immunization data Assessments Condition Codes Effective Dates Essential (primary) hypertension ICD-10: I10 ICD-9: 401.1 03/03/2018 Chronic kidney disease, stage 3 (moderate) ICD-10: N18.3 ICD-9: 585.3 03/03/2018 Type 2 diabetes mellitus with hyperglycemia ICD-10: E11.65 ICD-9: 250.00 01/30/2018 Type 2 diabetes mellitus without complications ICD-10: [...] Reason For Visit Effective Dates Notes hypertension 01/30/2018 hypertension 09/07/2017 hypertension 05/05/2017 right [...] Metabolic Ord15 CALCIUM 9.5 mg/dL 03/03/2018 %Hba1C Dvu902 % HbA1c 30242-5 6.7 % 01/02/2018 %Hba1C Tye504 Gluc Ave 146 mg/dL 01/02/2018 Cbc With [...] 32.7 pg 01/02/2018 Cbc With Differential Ord2 Pike% 9.2 % 01/02/2018 Cbc With Differential Ord2 [...] 1.45 K/ul 01/02/2018 Cbc With Differential Ord2 Pike ABS# 0.7 K/ul 01/02/2018 Cbc With Differential Ord2 Eos ABS# 0.1 K/ul 01/02/2018 Cbc With Differential Ord2 Baso ABS# 0.0 K/ul 01/02/2018 Comp Metabolic Gck604 NA 138 mEq/L 01/02/2018 Comp Metabolic Qpz175 K 4.5 mEq/L 01/02/2018 Comp Metabolic Wah175 CL 103 mEq/L 01/02/2018 Comp Metabolic Erb380 CO2 28.0 mEq/L 01/02/2018 Comp Metabolic Wmx701 ANION GAP 12 01/02/2018 Comp Metabolic Sok479 GLUCOSE 186 mg/dL 01/02/2018 Comp Metabolic Uor565 Creat 1.9 mg/dL 01/02/2018 Comp Metabolic Lfu321 eGFR 37 ml/min/1.73m2 01/02/2018 Comp Metabolic Lcl543 BUN 23 mg/dL 01/02/2018 Comp Metabolic Ngp664 B/C Ratio 12.2 Ratio 01/02/2018 Comp Metabolic Zpf068 CALCIUM 9.4 mg/dL 01/02/2018 Comp Metabolic Qxr303 ALK PHOS 46 U/L 01/02/2018 Comp Metabolic Lil154 AST(SGOT) 16 U/L 01/02/2018 Comp Metabolic Tdh209 ALT(SGPT) 19 U/L 01/02/2018 Comp Metabolic Xxa664 BILI T 0.6 mg/dL 01/02/2018 Comp Metabolic Evv056 ALBUMIN 3.8 g/dL 01/02/2018 Comp Metabolic Ajk537 TPRO 6.1 g/dL 01/02/2018 Comp Metabolic Kbu568 GLOB 2.3 g/dL 01/02/2018 Comp Metabolic Ezk047 A/G Ratio 1.6 Ratio 01/02/2018 Comp Metabolic Eyi682 Osmo 284 mOsmo 01/02/2018 %Hba1C Wok891 % HbA1c 21774-6 6.5 % 08/31/2017 %Hba1C Yee999 Gluc Ave 140 mg/dL 08/31/2017 Lipid Ord30 [...] 33.0 pg 08/31/2017 Cbc With Differential Ord2 Pike% 11.7 % 08/31/2017 Cbc With Differential Ord2 [...] 1.77 K/ul 08/31/2017 Cbc With Differential Ord2 Pike ABS# 0.9 K/ul 08/31/2017 Cbc With Differential Ord2 Eos ABS# 0.1 K/ul 08/31/2017 Cbc With Differential Ord2 Baso ABS# 0.0 K/ul 08/31/2017 Comp Metabolic Axv623 NA 139 mEq/L 08/31/2017 Comp Metabolic Qqs242 K 4.7 mEq/L 08/31/2017 Comp Metabolic Fxh722 CL 107 mEq/L 08/31/2017 Comp Metabolic Iiq540 CO2 24.0 mEq/L 08/31/2017 Comp Metabolic Cwt771 ANION GAP 13 08/31/2017 Comp Metabolic Ort806 GLUCOSE 158 mg/dL 08/31/2017 Comp Metabolic Oyc109 Creat 1.7 mg/dL 08/31/2017 Comp Metabolic Qty337 eGFR 43 ml/min/1.73m2 08/31/2017 Comp Metabolic Kkm618 BUN 26 mg/dL 08/31/2017 Comp Metabolic Szi017 B/C Ratio 15.5 Ratio 08/31/2017 Comp Metabolic Oqz025 CALCIUM 9.5 mg/dL 08/31/2017 Comp Metabolic Bcc473 ALK PHOS 47 U/L 08/31/2017 Comp Metabolic Vdk700 AST(SGOT) 16 U/L 08/31/2017 Comp Metabolic Vzq597 ALT(SGPT) 17 U/L 08/31/2017 Comp Metabolic Nii495 BILI T 0.8 mg/dL 08/31/2017 Comp Metabolic Bqf167 ALBUMIN 4.0 g/dL 08/31/2017 Comp Metabolic Lgp450 TPRO 6.4 g/dL 08/31/2017 Comp Metabolic Zlz138 GLOB 2.5 g/dL 08/31/2017 Comp Metabolic Ocl295 A/G Ratio 1.6 Ratio 08/31/2017 Comp Metabolic Sje320 Osmo 286 mOsmo 08/31/2017 Tsh Ord6 hTSH [...] 21.9 % 04/27/2017 Cbc With Differential Ord2 Pike% 10.5 % 04/27/2017 Cbc With Differential Ord2 [...] 1.42 K/ul 04/27/2017 Cbc With Differential Ord2 Pike ABS# 0.7 K/ul 04/27/2017 Cbc With Differential Ord2 Eos ABS# 0.1 K/ul 04/27/2017 Cbc With Differential Ord2 Baso ABS# 0.0 K/ul 04/27/2017 %Hba1C Nsd768 % HbA1c 19644-3 6.5 % 04/27/2017 %Hba1C Znk324 Gluc Ave 140 mg/dL 04/27/2017 Lipid Ord30 CHOL 134 mg/dL 04/27/2017 Lipid Ord30 HDL 44.0 mg/dl 04/27/2017 Lipid Ord30 TRIG 89 mg/dL 04/27/2017 Lipid Ord30 LDL 72 mg/dL 04/27/2017 Lipid Ord30 C/HDL 3.0 Ratio 04/27/2017 Comp Metabolic Emn638 NA 140 mEq/L 04/27/2017 Comp Metabolic Tzp949 K 4.3 mEq/L 04/27/2017 Comp Metabolic Gyr113 CL 105 mEq/L 04/27/2017 Comp Metabolic Dww266 CO2 26.0 mEq/L 04/27/2017 Comp Metabolic Wvr782 ANION GAP 13 04/27/2017 Comp Metabolic Exd225 GLUCOSE 117 mg/dL 04/27/2017 Comp Metabolic Byf884 Creat 1.6 mg/dL 04/27/2017 Comp Metabolic Pfo428 eGFR 45 ml/min/1.73m2 04/27/2017 Comp Metabolic Gvs199 BUN 27 mg/dL 04/27/2017 Comp Metabolic Ruq116 B/C Ratio 16.9 Ratio 04/27/2017 Comp Metabolic Cib242 CALCIUM 9.5 mg/dL 04/27/2017 Comp Metabolic Twl340 ALK PHOS 55 U/L 04/27/2017 Comp Metabolic Ady207 AST(SGOT) 20 U/L 04/27/2017 Comp Metabolic Sfp898 ALT(SGPT) 18 U/L 04/27/2017 Comp Metabolic Ije899 BILI T 0.4 mg/dL 04/27/2017 Comp Metabolic Rus335 ALBUMIN 4.0 g/dL 04/27/2017 Comp Metabolic Kwm514 TPRO 6.5 g/dL 04/27/2017 Comp Metabolic Gzd407 GLOB 2.5 g/dL 04/27/2017 Comp Metabolic Tyj710 A/G Ratio 1.6 Ratio 04/27/2017 Comp Metabolic Twx394 Osmo 286 mOsmo 04/27/2017 Total Psa Ord10 PSA 7.87 ng/mL 04/27/2017 Comp Metabolic Vci740 NA 136 mEq/L 12/29/2016 Comp Metabolic Put459 K 4.5 mEq/L 12/29/2016 Comp Metabolic Lbi625 CL 103 mEq/L 12/29/2016 Comp Metabolic Veq056 CO2 24.0 mEq/L 12/29/2016 Comp Metabolic Pzz265 ANION GAP 14 12/29/2016 Comp Metabolic Ogw899 GLUCOSE 164 mg/dL 12/29/2016 Comp Metabolic Kgo772 Creat 1.7 mg/dL 12/29/2016 Comp Metabolic Ttl741 eGFR 43 ml/min/1.73m2 12/29/2016 Comp Metabolic Vrb086 BUN 22 mg/dL 12/29/2016 Comp Metabolic Kxs664 B/C Ratio 13.3 Ratio 12/29/2016 Comp Metabolic Cin654 CALCIUM 9.5 mg/dL 12/29/2016 Comp Metabolic Yms557 ALK PHOS 58 U/L 12/29/2016 Comp Metabolic Emq414 AST(SGOT) 16 U/L 12/29/2016 Comp Metabolic Xnj200 ALT(SGPT) 16 U/L 12/29/2016 Comp Metabolic Brl375 BILI T 0.9 mg/dL 12/29/2016 Comp Metabolic Cmt096 ALBUMIN 3.9 g/dL 12/29/2016 Comp Metabolic Rgj486 TPRO 6.4 g/dL 12/29/2016 Comp Metabolic Iug354 GLOB 2.5 g/dL 12/29/2016 Comp Metabolic Sef826 A/G Ratio 1.5 Ratio 12/29/2016 Comp Metabolic Zyg698 Osmo 279 mOsmo 12/29/2016 Total Psa Ord10 PSA 8.44 ng/mL 11/09/2016 %Hba1C Vkk977 % HbA1c 63033-4 6.4 % 11/09/2016 %Hba1C Xjn948 Gluc Ave 137 mg/dL 11/09/2016 Cbc With [...] 25.0 % 11/09/2016 Cbc With Differential Ord2 Pike% 11.8 % 11/09/2016 Cbc With Differential Ord2 [...] 2.29 K/ul 11/09/2016 Cbc With Differential Ord2 Pike ABS# 1.1 K/ul 11/09/2016 Cbc With Differential Ord2 Eos ABS# 0.3 K/ul 11/09/2016 Cbc With Differential Ord2 Baso ABS# 0.0 K/ul 11/09/2016 Lipid Ord30 CHOL 152 mg/dL 11/09/2016 Lipid Ord30 HDL 46.0 mg/dl 11/09/2016 Lipid Ord30 TRIG 144 mg/dL 11/09/2016 Lipid Ord30 LDL 77 mg/dL 11/09/2016 Lipid Ord30 C/HDL 3.3 Ratio 11/09/2016 Comp Metabolic Khl108 NA 140 mEq/L 11/09/2016 Comp Metabolic Pfy976 K 4.9 mEq/L 11/09/2016 Comp Metabolic Qph000 CL 106 mEq/L 11/09/2016 Comp Metabolic Syq635 CO2 25.0 mEq/L 11/09/2016 Comp Metabolic Qnw742 ANION GAP 14 11/09/2016 Comp Metabolic Tgs944 GLUCOSE 127 mg/dL 11/09/2016 Comp Metabolic Rzw821 Creat 1.7 mg/dL 11/09/2016 Comp Metabolic Kku836 eGFR 43 ml/min/1.73m2 11/09/2016 Comp Metabolic Lmj208 BUN 21 mg/dL 11/09/2016 Comp Metabolic Lmo362 B/C Ratio 12.7 Ratio 11/09/2016 Comp Metabolic Igg136 CALCIUM 9.5 mg/dL 11/09/2016 Comp Metabolic Jcc680 ALK PHOS 45 U/L 11/09/2016 Comp Metabolic Ffa006 AST(SGOT) 18 U/L 11/09/2016 Comp Metabolic Rsx409 ALT(SGPT) 16 U/L 11/09/2016 Comp Metabolic Kee841 BILI T 0.6 mg/dL 11/09/2016 Comp Metabolic Qdx145 ALBUMIN 3.9 g/dL 11/09/2016 Comp Metabolic Vxj656 TPRO 6.4 g/dL 11/09/2016 Comp Metabolic Uyy615 GLOB 2.5 g/dL 11/09/2016 Comp Metabolic Uct794 A/G Ratio 1.5 Ratio 11/09/2016 Comp Metabolic Xtw545 Osmo 284 mOsmo 11/09/2016 Tsh Ord6 hTSH [...] 15.1 % 03/10/2016 Cbc With Differential Ord2 Pike% 10.6 % 03/10/2016 Cbc With Differential Ord2 [...] 1.48 K/ul 03/10/2016 Cbc With Differential Ord2 Pike ABS# 1.0 K/ul 03/10/2016 Cbc With Differential Ord2 Eos ABS# 0.1 K/ul 03/10/2016 Cbc With Differential Ord2 Baso ABS# 0.0 K/ul 03/10/2016 %Hba1C Toz984 % HbA1c 12088-6 6.6 % 03/10/2016 %Hba1C Ydv476 Gluc Ave 143 mg/dL 03/10/2016 Comp Metabolic Tct189 NA 138 mEq/L 03/10/2016 Comp Metabolic Etl905 K 4.9 mEq/L 03/10/2016 Comp Metabolic Uwi771 CL 102 mEq/L 03/10/2016 Comp Metabolic Ffe215 CO2 28.0 mEq/L 03/10/2016 Comp Metabolic Oyb344 ANION GAP 13 03/10/2016 Comp Metabolic Ejb672 GLUCOSE 135 mg/dL 03/10/2016 Comp Metabolic Lda040 Creat 1.5 mg/dL 03/10/2016 Comp Metabolic Zlg389 eGFR 51 ml/min/1.73m2 03/10/2016 Comp Metabolic Mgf918 BUN 28 mg/dL 03/10/2016 Comp Metabolic Mzq910 B/C Ratio 19.3 Ratio 03/10/2016 Comp Metabolic Lzj379 CALCIUM 9.8 mg/dL 03/10/2016 Comp Metabolic Ljg718 ALK PHOS 52 U/L 03/10/2016 Comp Metabolic Gzv644 AST(SGOT) 19 U/L 03/10/2016 Comp Metabolic Xua593 ALT(SGPT) 22 U/L 03/10/2016 Comp Metabolic Zxe665 BILI T 0.5 mg/dL 03/10/2016 Comp Metabolic Dia777 ALBUMIN 4.4 g/dL 03/10/2016 Comp Metabolic Pkg857 TPRO 6.8 g/dL 03/10/2016 Comp Metabolic Wpi416 GLOB 2.4 g/dL 03/10/2016 Comp Metabolic Wtl415 A/G Ratio 1.8 Ratio 03/10/2016 Comp Metabolic Kzt892 Osmo 283 mOsmo 03/10/2016 Comp Metabolic Zio909 NA 136 mEq/L 11/06/2015 Comp Metabolic Xrl476 K 4.0 mEq/L 11/06/2015 Comp Metabolic Nlh400 CL 102 mEq/L 11/06/2015 Comp Metabolic Xuv813 CO2 27.0 mEq/L 11/06/2015 Comp Metabolic Zus297 ANION GAP 11 11/06/2015 Comp Metabolic Aey364 GLUCOSE 144 mg/dL 11/06/2015 Comp Metabolic Amj604 Creat 1.2 mg/dL 11/06/2015 Comp Metabolic Rbi981 eGFR 64 ml/min/1.73m2 11/06/2015 Comp Metabolic Cyb243 BUN 23 mg/dL 11/06/2015 Comp Metabolic Djy418 B/C Ratio 19.3 Ratio 11/06/2015 Comp Metabolic Ylp605 CALCIUM 10.2 mg/dL 11/06/2015 Comp Metabolic Mad327 ALK PHOS 52 U/L 11/06/2015 Comp Metabolic Tyz449 AST(SGOT) 16 U/L 11/06/2015 Comp Metabolic Aig912 ALT(SGPT) 19 U/L 11/06/2015 Comp Metabolic Yiz448 BILI T 0.7 mg/dL 11/06/2015 Comp Metabolic Ttt904 ALBUMIN 4.3 g/dL 11/06/2015 Comp Metabolic Aev782 TPRO 6.8 g/dL 11/06/2015 Comp Metabolic Khw167 GLOB 2.5 g/dL 11/06/2015 Comp Metabolic Iad771 A/G Ratio 1.7 Ratio 11/06/2015 Comp Metabolic Jca597 Osmo 278 mOsmo 11/06/2015 Lipid Ord30 CHOL 152 mg/dL 11/06/2015 Lipid Ord30 HDL 48.0 mg/dl 11/06/2015 Lipid Ord30 TRIG 79 mg/dL 11/06/2015 Lipid Ord30 LDL 88 mg/dL 11/06/2015 Lipid Ord30 C/HDL 3.2 Ratio 11/06/2015 %Hba1C Tqt911 % HbA1c 08541-0 7.3 % 11/06/2015 %Hba1C Xls929 Gluc Ave 163 mg/dL 11/06/2015 Cbc With [...] 32.8 pg 06/05/2015 Cbc With Differential Ord2 Pike% 9.8 % 06/05/2015 Cbc With Differential Ord2 [...] 1.97 K/ul 06/05/2015 Cbc With Differential Ord2 Pike ABS# 0.9 K/ul 06/05/2015 Cbc With Differential Ord2 Eos ABS# 0.1 K/ul 06/05/2015 Cbc With Differential Ord2 Baso ABS# 0.0 K/ul 06/05/2015 Cbc With Differential Ord2 New Analyzer Notice Please note new ref ranges starting 04-16-2015 due to implemntation of new five part differential hematolgy analyzer. 06/05/2015 %Hba1C Eol271 % HbA1c 38882-7 7.1 % 05/08/2015 %Hba1C Iom346 Gluc Ave 157 mg/dL 05/08/2015 Microalbumin Egw754 MicroAlb 1.2 mg/dL 05/01/2015 Cbc With Differential [...] 33.1 pg 04/30/2015 Cbc With Differential Ord2 Pike% 11.2 % 04/30/2015 Cbc With Differential Ord2 [...] 2.41 K/ul 04/30/2015 Cbc With Differential Ord2 Pike ABS# 0.9 K/ul 04/30/2015 Cbc With Differential [...] hTSH II 1.35 uIU/mL 04/30/2015 Comp Metabolic Yza254 NA 136 mEq/L 04/30/2015 Comp Metabolic Tep482 K 4.5 mEq/L 04/30/2015 Comp Metabolic Xvh757 CL 100 mEq/L 04/30/2015 Comp Metabolic Oha092 CO2 28.0 mEq/L 04/30/2015 Comp Metabolic Vyw394 ANION GAP 13 04/30/2015 Comp Metabolic Fgr187 GLUCOSE 162 mg/dL 04/30/2015 Comp Metabolic Nrf926 Creat 1.2 mg/dL 04/30/2015 Comp Metabolic Mfx818 eGFR 62 ml/min/1.73m2 04/30/2015 Comp Metabolic Cuf568 BUN 21 mg/dL 04/30/2015 Comp Metabolic Suf321 B/C Ratio 17.4 Ratio 04/30/2015 Comp Metabolic Eda778 CALCIUM 9.9 mg/dL 04/30/2015 Comp Metabolic Kky852 ALK PHOS 51 U/L 04/30/2015 Comp Metabolic Omp688 AST(SGOT) 18 U/L 04/30/2015 Comp Metabolic Kpn399 ALT(SGPT) 23 U/L 04/30/2015 Comp Metabolic Slg903 BILI T 0.5 mg/dL 04/30/2015 Comp Metabolic Lqi435 ALBUMIN 4.2 g/dL 04/30/2015 Comp Metabolic Moo392 TPRO 6.9 g/dL 04/30/2015 Comp Metabolic Mlb415 GLOB 2.7 g/dL 04/30/2015 Comp Metabolic Mjb789 A/G Ratio 1.6 Ratio 04/30/2015 Comp Metabolic Ayk544 Osmo 278 mOsmo 04/30/2015 Metabolic Ord15 NA [...] Differential Ord2 RDW 13.6 % 01/28/2015 %Hba1C Uqi639 % HbA1c 99906-3 7.3 % 01/28/2015 %Hba1C Geq666 Gluc Ave 163 mg/dL 01/28/2015 %Hba1C Yan580 % HbA1c 06473-0 7.8 % 10/24/2014 %Hba1C Cvu311 Gluc Ave 177 mg/dL 10/24/2014 Cbc With [...] Ord2 RDW 13.7 % 10/23/2014 Comp Metabolic Ebr342 NA 135 mEq/L 10/23/2014 Comp Metabolic Qqt671 K 4.4 mEq/L 10/23/2014 Comp Metabolic Epu504 CL 99 mEq/L 10/23/2014 Comp Metabolic Kmv680 CO2 31.0 mEq/L 10/23/2014 Comp Metabolic Iki678 ANION GAP 9 10/23/2014 Comp Metabolic Hwh678 GLUCOSE 203 mg/dL 10/23/2014 Comp Metabolic Xhu706 Creat 1.1 mg/dL 10/23/2014 Comp Metabolic Etd286 eGFR 72 ml/min/1.73m2 10/23/2014 Comp Metabolic Dsk840 BUN 19 mg/dL 10/23/2014 Comp Metabolic Ncp799 B/C Ratio 17.8 Ratio 10/23/2014 Comp Metabolic Via455 CALCIUM 10.2 mg/dL 10/23/2014 Comp Metabolic Dud571 ALK PHOS 55 U/L 10/23/2014 Comp Metabolic Jnc950 AST(SGOT) 22 U/L 10/23/2014 Comp Metabolic Mya012 ALT(SGPT) 34 U/L 10/23/2014 Comp Metabolic Edf236 BILI T 0.8 mg/dL 10/23/2014 Comp Metabolic Amk987 ALBUMIN 4.3 g/dL 10/23/2014 Comp Metabolic Ggl800 TPRO 6.7 g/dL 10/23/2014 Comp Metabolic Qgg321 GLOB 2.4 g/dL 10/23/2014 Comp Metabolic Kvb056 A/G Ratio 1.8 Ratio 10/23/2014 Comp Metabolic Fym630 Osmo 278 mOsmo 10/23/2014 Review of Systems [...] clear 02/02/2017 None Full Exam - General 1995 Ears/Nose/Throat oral cavity/pharynx/larynx Overall: oropharyngeal mucosa clear [...] -4: [id number] 03/12/2016 DESTRUCT PREMALG LESION CPT-4: 44324 10/23/2014 DESTRUCT PREMALG LES 2-14 CPT-4: 17738 10/23/2014 Vital Signs Date Vital 01/30/2018 Blood Pressure 1: 144/64 Code : 8480-6 Blood Pressure 2: 150/64 Code: 8480-6 BMI: 29.6 Code: 75203-1 Heart Rate 1: 61 bpm Height: 5'5" SpO2: 98% Weight: 178 lbs 09/07/2017 Blood Pressure 1: 148/68 Code : 8480-6 BMI: 29.6 Code : 08140-8 Heart Rate 1 : 60 bpm Height: 5'5" SpO2: 98% Weight: 178 lbs 05/05/2017 Blood Pressure 1: 122/64 Code : 8480-6 BMI: 28.3 Code : 33094-2 Heart Rate 1 : 56 bpm Height: 5'5" SpO2: 97% Weight: 170 lbs 2017 BMI: 29.1 Code: 10168-8 Height: 5'5" Weight: 175 lbs 03/15/2017 Blood Pressure 1: 136/76 Code : 8480-6 BMI: 29.1 Code : 09154-0 Heart Rate 1 : 82 bpm Height: 5'5" SpO2: 98% Weight: 175 lbs 03/03/2017 BMI: 29.1 Code: 66516-9 Height: 5'5" Weight: 175 lbs 02/02/2017 Blood Pressure 1: 132/60 Code : 8480-6 BMI: 28.6 Code : 68450-4 Heart Rate 1 : 64 bpm Height: 5'5" SpO2: 99% Weight: 172 lbs 01/04/2017 Blood Pressure 1: 138/70 Code : 8480-6 BMI: 29.6 Code : 16490-6 Heart Rate 1 : 59 bpm Height: 5'5" SpO2: 99% Weight: 178 lbs 11/16/2016 Blood Pressure 1: 150/70 Code : 8480-6 BMI: 30.6 Code : 49089-5 Heart Rate 1 : 68 bpm Height: 5'5" SpO2: 94% Weight: 184 lbs 07/19/2016 Blood Pressure 1: 150/70 Code : 8480-6 Blood Pressure 2: 154/70 Code: 8480-6 BMI: 31.0 Code: 13319-1 Heart Rate 1: 61 bpm Height: 5'5" SpO2: 98% Weight: 186 lbs 03/12/2016 Blood Pressure 1: 156/80 Code : 8480-6 BMI: 30.5 Code : 15584-0 Heart Rate 1 : 60 bpm Height: 5'5" SpO2: 98% Waist Measure (cm): 91 cm Weight: 183 lbs 03/10/2016 Blood Pressure 1: 158/78 Code : 8480-6 Blood Pressure 1: 158/78 Code: 8480-6 BMI: 30.5 Code: 13453-3 Heart Rate 1: 61 bpm Height: 5'5" SpO2: 98% Weight: 183 lbs 11/06/2015 Blood Pressure 1: 156/80 Code : 8480-6 Blood Pressure 1: 138/70 Code: 8480-6 BMI: 30.1 Code: 69565-4 Heart Rate 1: 64 bpm Height: 5'5" SpO2: 98% Weight: 181 lbs 09/09/2015 Blood Pressure 1: 126/68 Code : 8480-6 08/26/2015 Blood Pressure 1: 168/74 Code : 8480-6 Blood Pressure 1: 162/76 Code: 8480-6 BMI: 29.8 Code: 39886-0 Heart Rate 1: 61 bpm Height: 5'5" SpO2: 98% Weight: 179 lbs 07/29/2015 Blood Pressure 1: 166/76 Code : 8480-6 BMI: 30.0 Code : 38085-4 Heart Rate 1 : 75 bpm Height: 5'5" SpO2: 99% Weight: 180 lbs 04/29/2015 Blood Pressure 1: 130/70 Code : 8480-6 Blood Pressure 1: 132/76 Code: 8480-6 BMI: 30.8 Code: 49297-2 Heart Rate 1: 64 bpm Height: 5'5" SpO2: 99% Weight: 185 lbs 10/23/2014 Blood Pressure 1: 140/76 Code : 8480-6 BMI: 30.5 Code : 38340-8 Heart Rate 1 : 63 bpm Height: 5'5" SpO2: 98% Weight: 183 lbs Functional Status No Functional Status data History of Present Illness Symptom Name Status Result Effective Date Notes hypertension Quality chronic 01/30/2018 None hypertension Quality [...] data Encounters Encounter Performer Location Codes Date ([id number]) [id number] EST. PATIENT, LEVEL IV Diagnosis: Type 2 diabetes mellitus with hyperglycemia[ICD10: E11.65] Diagnosis: Chronic kidney disease, stage 3 (moderate)[ICD10: N18.3] Diagnosis: Essential (primary) hypertension[ICD10: I10] Virginie Isaac MD, [facility] CPT-4: 23006 01/30/2018 ([id number]) 95021 EST. PATIENT, LEVEL IV Diagnosis: Essential (primary) hypertension[ICD10: I10] Diagnosis: Type 2 diabetes mellitus without complications[ICD10: E11.9] Diagnosis: Malignant neoplasm of prostate[ICD10: C61] Diagnosis: Chronic kidney disease, stage 3 (moderate)[ICD10: N18.3] Virginie Isaac MD, [facility] CPT-4: 32919 09/07/2017 ([id number]) 98937 EST. PATIENT, LEVEL IV Diagnosis: Type 2 diabetes mellitus without complications[ICD10: E11.9] Diagnosis: Essential (primary) hypertension[ICD10: I10] Diagnosis: Changes in skin texture[ICD10: R23.4] Diagnosis: Chronic kidney disease, stage 3 (moderate)[ICD10: N18.3] [facility] CPT-4: 05313 05/05/2017 ([id number]) Miscellaneous no charge Diagnosis: Abnormal weight loss[ICD10: R63.4] [facility] CPT-4: 67178 2017 ([id number]) Miscellaneous no charge Diagnosis: Abnormal weight loss[ICD10: R63.4] [facility] CPT-4: 76324 03/03/2017 [id number]) 24099 EST. PATIENT, LEVEL III Diagnosis: Type 2 diabetes mellitus with hyperglycemia[ICD10: E11.65] Diagnosis: Essential (primary) hypertension[ICD10: I10] Virginie Isaac MD [facility] CPT-4: 08245 02/02/2017 [id number]) 51046 EST. PATIENT, LEVEL IV Diagnosis: Type 2 diabetes mellitus with hyperglycemia[ICD10: E11.65] Diagnosis: Essential (primary) hypertension[ICD10: I10] Diagnosis: Chronic kidney disease, stage 3 (moderate)[ICD10: N18.3] Virginie Isaac MD [facility] CPT-4: 58950 01/04/2017 ([id number]) 82822 EST. PATIENT, LEVEL IV Diagnosis: Type 2 diabetes mellitus with hyperglycemia[ICD10: E11.65] Diagnosis: Essential (primary) hypertension[ICD10: I10] Diagnosis: Chronic kidney disease, stage 3 (moderate)[ICD10: N18.3] Diagnosis: Elevated prostate specific antigen [PSA][ICD10: R97.20] Virginie Isaac MD [facility] CPT-4: 65474 11/16/2016 ([id number]) 53591 EST. PATIENT, LEVEL IV Diagnosis: Essential (primary) hypertension[ICD10: I10] Diagnosis: Type 2 diabetes mellitus with hyperglycemia[ICD10: E11.65] Diagnosis: Mixed hyperlipidemia[ICD10: E78.2] Virginie Isaac MD [facility] CPT-4: 50517 07/19/2016 ([id number]) 62283 EST. PATIENT, LEVEL IV Diagnosis: Type 2 diabetes mellitus with hyperglycemia[ICD10: E11.65] Diagnosis: Essential (primary) hypertension[ICD10: I10] Diagnosis: Mixed hyperlipidemia[ICD10: E78.2] Virginie Isaac MD [facility] CPT-4: 52078 03/10/2016 [id number]) 13427 EST. PATIENT, LEVEL III Diagnosis: Essential (primary) hypertension[ICD10: I10] Diagnosis: Type 2 diabetes mellitus with hyperglycemia[ICD10: E11.65] Diagnosis: Hyperlipidemia, unspecified[ICD10: E78.5] Virginie Isaac MD [facility] CPT-4: 23628 11/06/2015 ([id number]) Miscellaneous no charge Diagnosis: Essential (primary) hypertension[ICD10: I10] Scarlett Isaac MD [facility] CPT-4: 88129 09/09/2015 ([id number]) 98559 EST. PATIENT, LEVEL III Diagnosis: Essential (primary) hypertension[ICD10: I10] Diagnosis: Other skin changes[ICD10: R23.8] Virginie Isaac MD [facility] CPT-4: 39024 08/26/2015 ([id number]) 79133 EST. PATIENT, LEVEL IV Diagnosis: Essential (primary) hypertension[ICD10: I10] Diagnosis: Unspecified amblyopia, right eye[ICD10: H53.001] Diagnosis: Other skin changes[ICD10: R23.8] LUCINDA Stokes MD CPT-4: 74550 07/29/2015 ([id number]) 26943 EST. PATIENT, LEVEL IV Diagnosis: Type 2 diabetes mellitus with hyperglycemia[ICD10: E11.65] Diagnosis: Essential (primary) hypertension[ICD10: I10] Diagnosis: Hyperlipidemia, unspecified[ICD10: E78.5] Virginie Isaac MD [facility] CPT-4: 83498 04/29/2015 ([id number]) OFFICE VISIT, NEW - LEVEL 4 Diagnosis: ESSENTIAL HYPERTENSION[ICD9: 401.9] Diagnosis: DIABETES TYPE II[ICD9: 250.00] Diagnosis: ACTINIC KERATOSIS[ICD9: 702.0] Diagnosis: Impacted cerumen[ICD9: 380.4] Virginie Isaac MD [facility] CPT- 4: 33301 10/23/2014 Plan of Care Planned Activity Notes Codes Status Date Patient Education: Patient Medication Summary Completed 03/03/2018 [...] recommended that he needs to see a Pharmaceutical Physician, but Suleman is not interested at this time. He has agreed to have repeat bmp in one month off of the hctz and to start on renal diet. Prostate cancer - continue with plans to be seen by Dr. Modi at the cancer center. 01/30/2018 Appointment: Virginie Isaac WPtel: [phone] [facility] (15 min) Moderate 01/30/2018 Patient Education: Patient Medication Summary Completed 01/30/2018 Appointment: Virginie Isaac WPtel: [phone] [facility] (15 min) Moderate 01/10/2018 Visit Plan: Diabetes [...] pt is not interested in seeing a Pharmaceutical Physician as has been recommended to patient. 09/07/2017 [phone] ([facility] min) Moderate 09/07/2017 Patient Education: Patient [...] pt is not interested in seeing a Pharmaceutical Physician as has been recommended to patient. Elevated PSA -pt seeing Dr. Harrison. 05/05/2017 Appointment: Virginie Isaac WPtel: [facility]5 [facility] (15 min) Moderate 05/05/2017 Patient Education: Patient Medication Summary Completed 05/05/2017 Appointment: Scarlett Omalley WPtel: [facility]5 [facility] (15 min) Moderate 04/14/2017 Appointment: [...] surrogate. 03/15/2017 Appointment: [facility]ie[facility] Sullivan [phone] [facility] [place] [address] - Annual Wellness Visit 03/15/2017 Patient Education: [...] at home. 02/02/2017 Appointment: [phone] (15 min) Moderate 02/02/2017 Patient Education: Patient [...] Hypertension Completed 01/04/2017 Appointment: Virginie Isaac WPtel: [facility] [place] (15 min) Moderate 12/23/2016 Appointment: Virginie Isaac WPtel[facility] (15 min) Moderate 12/22/2016 Visit Plan: Hypertension [...] orange juice. 11/16/2016 Appointment: Virginie Isaac WPtel: [facility] (15 min) Moderate 11/16/2016 Patient Education: Patient [...] to medications. 07/19/2016 Appointment: Virginie Isaac WPtel: [phone] [facility] (15 min) Moderate 07/19/2016 Patient Education: Patient Medication Summary Completed 07/19/2016 Patient Education: Obesity Completed 07/19/2016 Patient Education: Hypertension Completed 07/19/2016 Appointment: Virginie Isaac WPtel: [phone] [facility] (15 min) Moderate 07/06/2016 Visit Plan: [...] care surrogate. 03/12/2016 Appointment: Nie[facility] Sullivan [facility]el[phone] [facility] - Annual Wellness Visit 03/12/2016 Patient Education: [...] hs 03/10/2016 Appointment: [phone] (15 min) Moderate 03/10/2016 Patient Education: Patient [...] Obesity Completed 11/06/2015 Appointment: Nie[facility] Sullivan [facility]el[phone] [facility] [place] (30 min) Complex 10/27/2015 Appointment: Nurse Visit [...] have repeat treatment - one on left quaker and one on posterior scalp. 08/26/2015 Patient Education: Patient Medication Summary Completed 08/26/2015 Patient Education: Hypertension Completed 08/26/2015 Referral: Tariq Ramirez WPtel: [address] [place], [place] [address] Referral Completed 08/05/2015 Visit Plan: Hypertension - [...] - recommended use of efudex. 07/29/2015 Appointment: Virginie Isaac WPtel: [address] [place], [place] [address] (15 min) Moderate 07/29/2015 Patient Education: Patient Medication Summary Completed 07/29/2015 Patient Education: Obesity Completed 07/29/2015 Patient Education: Hypertension Completed 07/29/2015 Care Plan: Referral Order SNOMED-CT : [id number] Pending 07/29/2015 Patient Education: Patient Medication Summary [...] Care Plan: COMPLETE CBC AUTOMATED LOINC : 85086-6 Ordered 04/29/2015 Care Plan: MICROALBUMIN QUANTITATIVE LOINC : 34456-2 Ordered 04/29/2015 Appointment: (15 min) Moderate 03/31/2015 Appointment: Virginie Isaac WPtel: [facility] (15 min) Moderate 01/22/2015 Visit Plan: Hypertension [...] office visit. 10/23/2014 Appointment: Virginie Isaac WPtel: [address] [place] [address] [place] ([place] New Patient 10/23/2014 Patient Education: Patient Medication Summary Completed 10/23/2014 Patient Education: Hypertension Completed 10/23/2014 Referral: Tariq Ramirez WPtel: [address] [place], [place] [address] [place] Referral Appointment Requested Instructions Comment stop METFORMIN and also STOP MELOXICAM - [...] it is no sugar added orange juice. . Hypertension - well controlled - continue [...] less controlled. Hyperlipidemia - continue with simvastatin. pt to have hgba1c one week before [...] pt is not interested in seeing a Pharmaceutical Physician as has been recommended to patient. Elevated PSA -pt seeing Dr. Harrison. . Diabetes Mellitus - controlled - per [...] on new diabetic medication at this time . Hypertension - well controlled - continue [...] to start on melatonin 3mg at hs increase the bisoprolol/hctz to one pill twice [...] changes - recommended use of efudex. . Medicare Exam - today we discussed [...] her DOPA paperwork for health care surrogate. . Hypertension - uncontrolled - the patient's [...] have repeat treatment - one on left quaker and one on posterior scalp. use sweet oil, or olive oil, or [...] hearing improves or until next office visit. pt to have hgba1c one week before [...] pt is not interested in seeing a Pharmaceutical Physician as has been recommended to patient. . Medicare Exam - today we discussed [...] her DOPA paperwork for health care surrogate. . Diabetes Mellitus - controlled - per [...] recommended that he needs to see a Pharmaceutical Physician, but Suleman is not interested at this time. He has agreed to have repeat bmp in one month off of the hctz and to start on renal diet. Prostate cancer - continue with plans to be seen by Dr. Modi at the cancer center. . Hypertension - well controlled - continue [...] left and right sideburns and on scalp. . Diabetes Mellitus - controlled - per [...] change in blood pressure readings at home. get labs one week before your appt [...]
--- OUTSIDE RECORDS SUMMARY | 2018-03-14 06:11 | XMS REPORT | CCD ---
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 Name Role Phone PP Unavailable CCM Unavailable Summary Purpose Interface Exchange Insurance Providers Payer name Policy type / Coverage type Covered alliance party ID Effective Begin Date Effective End Date WPS Medicare Part B Medicare Part B [id number] 2018 Unknown [facility] Medicare Part B No Plan Member ID [...] self employed 10/23/[address]: [id number] Never smoker 10/23/[address]: 549410091 Never drinks alcohol 10/23/2014 Allergies, Adverse Reactions, [...] Start Date Stop Date Status Fill Instructions Truetest Test Strips RxNorm: TEST BLOOD SUGAR EVERY DAY 201711/26/2018 Active 01/30/2018 3:29:14 PM bisoprolol fumarate 5 mg tablet RxNorm: 819562 1 Tablet(s) PO BID 01/30/2018 08/27/2018 Active this replaces his combination pill glimepiride 2 mg tablet RxNorm: 275224 TAKE 1/2 (ONE- HALF) TABLET BY MOUTH TWICE DAILY 12/06/2017 06/03/2018 Active Generic For:AMARYL 2MG 12/06/2017 9:07:06 AM losartan 100 mg tablet RxNorm: 930979 TAKE 1 TABLET BY MOUTH DAILY 11/07/2017 06/04/2018 Active Generic For:COZAAR 100MG 11/07/2017 9:05:45 AM bisoprolol 5 mg-hydrochlorothiazide 6.25 mg tablet RxNorm: 490679 TAKE 1 TABLET BY MOUTH TWICE DAILY 09/15/20172017 Inactive Generic For:ZIAC 5-6.25MG 09/15/2017 9:07:10 AM simvastatin 20 mg tablet RxNorm: 800319 TAKE ONE TABLET BY MOUTH DAILY 06/17/2017 03/13/2018 Active Generic For:ZOCOR 20MG 06/17/2017 9:01:38 AM glimepiride 2 mg tablet RxNorm: 649365 TAKE 1/2 (ONE- HALF) TABLET BY MOUTH TWICE DAILY 06/17/2017 12/05/2017 Inactive Generic For:AMARYL 2MG 06/17/2017 9:01:41 AM losartan 100 mg tablet RxNorm: 896160 TAKE 1 TABLET BY MOUTH DAILY 04/18/2017 11/06/2017 Inactive Generic For:COZAAR 100MG 04/18/2017 9:40:33 AM bisoprolol 5 mg-hydrochlorothiazide 6.25 mg tablet RxNorm: 365770 TAKE 1 TABLET BY MOUTH TWICE DAILY 02/17/20172017 Inactive Generic For:ZIAC 5-6.25MG 02/17/2017 9:04:42 AM glimepiride 2 mg tablet RxNorm: 535323 1/2 Tablet(s) BID 201606/16/2017 Inactive Generic For:AMARYL 2MG 07/22/2016 9:03:39 AM Zithromax 250 mg tablet RxNorm: 630973 two pills on day #1 then 1 Tablet(s) PO daily 01/04/2017 01/08/2017 Inactive zpackx1 glimepiride 2 mg tablet RxNorm: 783319 1 Tablet(s) TAKE 1 TABLET BY MOUTH TWICE DAILY 11/17/2016 02/01/2017 Inactive Generic For:AMARYL 2MG 07/22/2016 9:03:39 AM glimepiride 2 mg tablet RxNorm: 552688 1 Tablet(s) TAKE 1 TABLET BY MOUTH TWICE DAILY 11/17/2016 11/16/2016 Inactive Generic For:AMARYL 2MG 07/22/2016 9:03:39 AM Ness Allergy 180 mg tablet RxNorm: 437131 1 Tablet(s) PO daily 10/25/2016 10/24/2016 Inactive Zithromax 250 mg tablet RxNorm: 064464 1 Tablet(s) PO daily 10/24/2016 Inactive zpackx1 Ness Allergy 180 mg tablet RxNorm: 820921 1 Tablet(s) PO daily 10/25/2016 03/07/2017 Inactive Zithromax 250 mg tablet RxNorm: 790093 1 Tablet(s) PO daily 10/29/2016 Inactive zpackx1 glimepiride 2 mg tablet RxNorm: 133033 1/2 Tablet(s) TAKE 1 TABLET BY MOUTH TWICE DAILY 10/12/2016 11/16/2016 Inactive Generic For:AMARYL 2MG 07/22/2016 9:03:39 AM losartan 100 mg tablet RxNorm: 152733 1 Tablet(s) PO daily 04/17/2017 Inactive metformin 500 mg tablet RxNorm: 004268 TAKE 1 TABLET BY MOUTH TWICE DAILY 09/20/2016 11/15/2016 Inactive Generic For:GLUCOPHAGE 500MG 09/20/2016 9:11:58 AM simvastatin 20 mg tablet RxNorm: 972394 TAKE ONE TABLET BY MOUTH DAILY 09/20/2016 06/16/2017 Inactive Generic For:ZOCOR 20MG 09/20/2016 9:11:29 AM bisoprolol 5 mg-hydrochlorothiazide 6.25 mg tablet RxNorm: 944451 TAKE 1 TABLET BY MOUTH TWICE DAILY 07/22/20162016 Inactive Generic For:ZIAC 5-6.25MG 07/22/2016 9:03:48 AM glimepiride 2 mg tablet RxNorm: 913713 TAKE 1 TABLET BY MOUTH TWICE DAILY 07/22/2016 10/11/2016 Inactive Generic For:AMARYL 2MG 07/22/2016 9:03:39 AM meloxicam 15 mg tablet RxNorm: 232811 TAKE 1 TABLET BY MOUTH DAILY 05/24/2016 11/15/2016 Inactive Generic For:MOBIC 15MG 05/24/2016 9:12:11 AM metformin 500 mg tablet RxNorm: 410062 1 Tablet(s) BID 201609/19/2016 Inactive Generic For:GLUCOPHAGE 500MG 04/29/2015 3:46:58 PM bisoprolol 5 mg-hydrochlorothiazide 6.25 mg tablet RxNorm: 588701 TAKE 1 TABLET BY MOUTH TWICE DAILY 03/31/20162016 Inactive Generic For:ZIAC 5-6.25MG 03/31/2016 12:38:33 PM glimepiride 2 mg tablet RxNorm: 707139 TAKE 1 TABLET BY MOUTH TWICE DAILY 03/31/2016 07/21/2016 Inactive Generic For:AMARYL 2MG 03/31/2016 12:38:28 PM losartan 100 mg tablet RxNorm: 718294 1 Tablet(s) PO daily 09/19/2016 Inactive simvastatin 20 mg tablet RxNorm: 729522 1 Tablet(s) PO daily 09/18/2016 Inactive glimepiride 2 mg tablet RxNorm: 036597 1 Tablet(s) PO BID 11/2303/22/2016 Inactive meloxicam 15 mg tablet RxNorm: 836181 1 Tablet(s) PO daily 05/21/2016 Inactive bisoprolol 5 mg-hydrochlorothiazide 6.25 mg tablet RxNorm: 642260 1 Tablet(s) PO BID 11/24/2015 03/22/2016 Inactive Generic For:ZIAC 5-6.25MG 03/31/2015 4:06:14 PM03/31/2015 3:58:36 PM metformin 500 mg tablet RxNorm: 249307 1 Tablet(s) BID 201504/04/2016 Inactive Generic For:GLUCOPHAGE 500MG 04/29/2015 3:46:58 PM losartan 50 mg tablet RxNorm: 943585 1 Tablet(s) PO daily 201502/29/2016 Inactive bisoprolol 5 mg-hydrochlorothiazide 6.25 mg tablet RxNorm: 755431 1 Tablet(s) PO BID 07/29/2015 11/23/2015 Inactive Generic For:ZIAC 5-6.25MG 03/31/2015 4:06:14 PM03/31/2015 3:58:36 PM bisoprolol 5 mg-hydrochlorothiazide 6.25 mg tablet RxNorm: 552927 Tablet(s) 1 TABLET(S) BY MOUTH DAILY 07/21/20152015 Inactive Generic For:ZIAC 5-6.25MG 03/31/2015 4:06:14 PM03/31/2015 3:58:36 PM meloxicam 15 mg tablet RxNorm: 868264 1 Tablet(s) PO daily 11/17/2015 Inactive glimepiride 2 mg tablet RxNorm: 356378 1 Tablet(s) PO BID 07/2011/17/2015 Inactive metformin 500 mg tablet RxNorm: 095728 Tablet(s) TAKE 1 TABLET BY MOUTH IN THE MORNING AND 1/2 TABLET IN THE EVENING 06/16/2015 11/06/2015 Inactive Generic For: GLUCOPHAGE 500MG 04/29/2015 3:46:58 PM metformin 500 mg tablet RxNorm: 826361 Tablet(s) TAKE 1 TABLET BY MOUTH IN THE MORNING AND 1/2 TABLET IN THE EVENING 05/19/2015 06/15/2015 Inactive Generic For: GLUCOPHAGE 500MG 04/29/2015 3:46:58 PM metformin 500 mg tablet RxNorm: 805275 TAKE 1/2 (ONE- HALF) TABLET BY MOUTH DAILY BY MOUTH TWICE DAILY 04/29/20152015 Inactive Generic For:GLUCOPHAGE 500MG 04/29/2015 3:46:58 PM meloxicam 15 mg tablet RxNorm: 827360 1 Tablet(s) PO daily 07/20/2015 Inactive simvastatin 20 mg tablet RxNorm: 099909 1 Tablet(s) PO daily 12/23/2015 Inactive bisoprolol 5 mg-hydrochlorothiazide 6.25 mg tablet RxNorm: 709711 1 TABLET(S) BY MOUTH DAILY 03/31/2015 07/20/2015 Inactive Generic For:ZIAC 5-6.25MG 03/31/2015 4: 06:14 PM03/31/2015 3:58:36 PM glimepiride 2 mg tablet RxNorm: 471178 1 Tablet(s) PO BID 02/0506/04/2015 Inactive increase to BID metformin 500 mg tablet RxNorm: 743116 1/2 Tablet(s) PO BID 04/20/2015 Inactive bisoprolol 5 mg-hydrochlorothiazide 6.25 mg tablet RxNorm: 673892 1 Tablet(s) PO daily 12/05/2014 12/04/2014 Inactive bisoprolol 5 mg-hydrochlorothiazide 6.25 mg tablet RxNorm: 530605 1 Tablet(s) PO daily 12/05/2014 03/30/2015 Inactive meloxicam 15 mg tablet RxNorm: 079823 1 Tablet(s) PO daily 04/201404/01/2015 Inactive Truetest Test Strips RxNorm: Miscellaneous daily 11/20/2014 11/19/2014 Inactive Truetest Test Strips RxNorm: Miscellaneous daily 11/20/2014 11/14/2015 Inactive finasteride 5 mg tablet RxNorm: 798599 1 Tablet(s) PO daily No Start Date Active tamsulosin 0.4 mg capsule RxNorm: 078354 1 Capsule(s) PO daily No Start Date Active simvastatin 20 mg tablet RxNorm: 299073 1 Tablet(s) PO daily No Start Date 04/01/2015 Inactive meloxicam 15 mg tablet RxNorm: 017230 1 Tablet(s) PO daily No Start Date 12/02/2014 Inactive metformin 500 mg tablet RxNorm: 126160 1/2 Tablet(s) PO BID No Start Date 01/20/2015 Inactive glimepiride 2 mg tablet RxNorm: 790181 1 Tablet(s) PO daily No Start Date 02/04/2015 Inactive Ziac 5 mg-6.25 mg tablet RxNorm: 244058 1 Tablet(s) PO daily No Start Date [...] Observation Code Item Item Code Result Date %Hba1C Vte329 % HbA1c 56380-0 6.7 % 01/02/2018 %Hba1C Vbd443 Gluc Ave 146 mg/dL 01/02/2018 Cbc With Differential Ord2 WBC 7.31 K/ul 01/02/2018 Cbc With Differential Ord2 RBC 4.50 M/ul 01/02/2018 Cbc With Differential Ord2 HGB 14.7 g/dl 01/02/2018 Cbc With Differential Ord2 Neut% 69.5 % 01/02/2018 Cbc With Differential Ord2 HCT 44.2 % 01/02/2018 Cbc With Differential Ord2 MCV 98.2 fl 01/02/2018 Cbc With Differential Ord2 Lymph% 19.8 % 01/02/2018 Cbc With Differential Ord2 Newton% 9.2 % 01/02/2018 Cbc With Differential Ord2 MCH 32.7 pg 01/02/2018 Cbc With Differential Ord2 Eos% 1.2 % 01/02/2018 Cbc With Differential Ord2 MCHC 33.3 pg 01/02/2018 Cbc With Differential Ord2 Baso% 0.3 % 01/02/2018 Cbc With Differential Ord2 PLT 327 K/ul 01/02/2018 Cbc With Differential Ord2 Neut ABS# 5.08 K/ul 01/02/2018 Cbc With Differential Ord2 RDW 12.8 % 01/02/2018 Cbc With Differential Ord2 Lymph ABS# 1.45 K/ul 01/02/2018 Cbc With Differential Ord2 [place] ABS# 0.7 K/ul 01/02/2018 Cbc With Differential Ord2 Eos ABS# 0.1 K/ul 01/02/2018 Cbc With Differential Ord2 Baso ABS# 0.0 K/ul 01/02/2018 Comp Metabolic Lag653 NA 138 mEq/L 01/02/2018 Comp Metabolic Pmh835 K 4.5 mEq/L 01/02/2018 Comp Metabolic Qgj938 CL 103 mEq/L 01/02/2018 Comp Metabolic Ppq593 CO2 28.0 mEq/L 01/02/2018 Comp Metabolic Apy647 ANION GAP 12 01/02/2018 Comp Metabolic Xci583 GLUCOSE 186 mg/dL 01/02/2018 Comp Metabolic Hnz400 Creat 1.9 mg/dL 01/02/2018 Comp Metabolic Mbs941 eGFR 37 ml/min/1.73m2 01/02/2018 Comp Metabolic Ejx124 BUN 23 mg/dL 01/02/2018 Comp Metabolic Pjq178 B/C Ratio 12.2 Ratio 01/02/2018 Comp Metabolic Brc960 CALCIUM 9.4 mg/dL 01/02/2018 Comp Metabolic Kdg318 ALK PHOS 46 U/L 01/02/2018 Comp Metabolic Zur883 AST(SGOT) 16 U/L 01/02/2018 Comp Metabolic Xck654 ALT(SGPT) 19 U/L 01/02/2018 Comp Metabolic Xbt532 BILI T 0.6 mg/dL 01/02/2018 Comp Metabolic Jtj765 ALBUMIN 3.8 g/dL 01/02/2018 Comp Metabolic Lqg305 TPRO 6.1 g/dL 01/02/2018 Comp Metabolic Bdv254 GLOB 2.3 g/dL 01/02/2018 Comp Metabolic Pfk443 A/G Ratio 1.6 Ratio 01/02/2018 Comp Metabolic Acg509 Osmo 284 mOsmo 01/02/2018 %Hba1C Vme736 % HbA1c 62585-8 6.5 % 08/31/2017 %Hba1C Ugd288 Gluc Ave 140 mg/dL 08/31/2017 Lipid Ord30 [...] 61.8 % 08/31/2017 Cbc With Differential Ord2 MCV 98.2 fl 08/31/2017 Cbc With Differential Ord2 Lymph% 24.3 % 08/31/2017 Cbc With Differential Ord2 MCH 33.0 pg 08/31/2017 Cbc With Differential Ord2 Newton% 11.7 % 08/31/2017 Cbc With Differential Ord2 MCHC 33.6 pg 08/31/2017 Cbc With Differential Ord2 Eos% 1.8 % 08/31/2017 Cbc With Differential Ord2 PLT 348 K/ul 08/31/2017 Cbc With Differential Ord2 Baso% 0.4 % 08/31/2017 Cbc With Differential Ord2 Neut ABS# 4.51 K/ul 08/31/2017 Cbc With Differential Ord2 RDW 13.0 % 08/31/2017 Cbc With Differential Ord2 Lymph ABS# 1.77 K/ul 08/31/2017 Cbc With Differential Ord2 [place] ABS# 0.9 K/ul 08/31/2017 Cbc With Differential Ord2 Eos ABS# 0.1 K/ul 08/31/2017 Cbc With Differential Ord2 Baso ABS# 0.0 K/ul 08/31/2017 Comp Metabolic Ytm517 NA 139 mEq/L 08/31/2017 Comp Metabolic Bvc969 K 4.7 mEq/L 08/31/2017 Comp Metabolic Zzf931 CL 107 mEq/L 08/31/2017 Comp Metabolic Adi873 CO2 24.0 mEq/L 08/31/2017 Comp Metabolic Wlf396 ANION GAP 13 08/31/2017 Comp Metabolic Rgq552 GLUCOSE 158 mg/dL 08/31/2017 Comp Metabolic Tvd796 Creat 1.7 mg/dL 08/31/2017 Comp Metabolic Bcd596 eGFR 43 ml/min/1.73m2 08/31/2017 Comp Metabolic Vxj961 BUN 26 mg/dL 08/31/2017 Comp Metabolic Zvh779 B/C Ratio 15.5 Ratio 08/31/2017 Comp Metabolic Bxj835 CALCIUM 9.5 mg/dL 08/31/2017 Comp Metabolic Mzc614 ALK PHOS 47 U/L 08/31/2017 Comp Metabolic Jlw808 AST(SGOT) 16 U/L 08/31/2017 Comp Metabolic Cip632 ALT(SGPT) 17 U/L 08/31/2017 Comp Metabolic Fwr114 BILI T 0.8 mg/dL 08/31/2017 Comp Metabolic Jfr136 ALBUMIN 4.0 g/dL 08/31/2017 Comp Metabolic Qhi788 TPRO 6.4 g/dL 08/31/2017 Comp Metabolic Ccg883 GLOB 2.5 g/dL 08/31/2017 Comp Metabolic Gws655 A/G Ratio 1.6 Ratio 08/31/2017 Comp Metabolic Pce869 Osmo 286 mOsmo 08/31/2017 Tsh Ord6 hTSH [...] 21.9 % 04/27/2017 Cbc With Differential Ord2 Newton% 10.5 % 04/27/2017 Cbc With Differential Ord2 MCH 32.5 pg 04/27/2017 Cbc With Differential Ord2 MCHC 33.1 pg 04/27/2017 Cbc With Differential Ord2 Eos% 2.2 % 04/27/2017 Cbc With Differential Ord2 Baso% 0.5 % 04/27/2017 Cbc With Differential Ord2 PLT 378 K/ul 04/27/2017 Cbc With Differential Ord2 Neut ABS# 4.21 K/ul 04/27/2017 Cbc With Differential Ord2 RDW 13.0 % 04/27/2017 Cbc With Differential Ord2 Lymph ABS# 1.42 K/ul 04/27/2017 Cbc With Differential Ord2 [place] ABS# 0.7 K/ul 04/27/2017 Cbc With Differential Ord2 Eos ABS# 0.1 K/ul 04/27/2017 Cbc With Differential Ord2 Baso ABS# 0.0 K/ul 04/27/2017 %Hba1C Tqb560 % HbA1c 45945-6 6.5 % 04/27/2017 %Hba1C Ifr463 Gluc Ave 140 mg/dL 04/27/2017 Lipid Ord30 CHOL 134 mg/dL 04/27/2017 Lipid Ord30 HDL 44.0 mg/dl 04/27/2017 Lipid Ord30 TRIG 89 mg/dL 04/27/2017 Lipid Ord30 LDL 72 mg/dL 04/27/2017 Lipid Ord30 C/HDL 3.0 Ratio 04/27/2017 Comp Metabolic Ueq760 NA 140 mEq/L 04/27/2017 Comp Metabolic Abz521 K 4.3 mEq/L 04/27/2017 Comp Metabolic Rpb211 CL 105 mEq/L 04/27/2017 Comp Metabolic Woi886 CO2 26.0 mEq/L 04/27/2017 Comp Metabolic Wbx433 ANION GAP 13 04/27/2017 Comp Metabolic Nio667 GLUCOSE 117 mg/dL 04/27/2017 Comp Metabolic Ylm403 Creat 1.6 mg/dL 04/27/2017 Comp Metabolic Jlx954 eGFR 45 ml/min/1.73m2 04/27/2017 Comp Metabolic Rlc576 BUN 27 mg/dL 04/27/2017 Comp Metabolic Kms227 B/C Ratio 16.9 Ratio 04/27/2017 Comp Metabolic Axh305 CALCIUM 9.5 mg/dL 04/27/2017 Comp Metabolic Zlx690 ALK PHOS 55 U/L 04/27/2017 Comp Metabolic Stb571 AST(SGOT) 20 U/L 04/27/2017 Comp Metabolic Ied278 ALT(SGPT) 18 U/L 04/27/2017 Comp Metabolic Kvt377 BILI T 0.4 mg/dL 04/27/2017 Comp Metabolic Qrr764 ALBUMIN 4.0 g/dL 04/27/2017 Comp Metabolic Mwc913 TPRO 6.5 g/dL 04/27/2017 Comp Metabolic Mxu441 GLOB 2.5 g/dL 04/27/2017 Comp Metabolic Ysy817 A/G Ratio 1.6 Ratio 04/27/2017 Comp Metabolic Ksh273 Osmo 286 mOsmo 04/27/2017 Total Psa Ord10 PSA 7.87 ng/mL 04/27/2017 Comp Metabolic Oox969 NA 136 mEq/L 12/29/2016 Comp Metabolic Iua683 K 4.5 mEq/L 12/29/2016 Comp Metabolic Wjj559 CL 103 mEq/L 12/29/2016 Comp Metabolic Elx072 CO2 24.0 mEq/L 12/29/2016 Comp Metabolic Ded464 ANION GAP 14 12/29/2016 Comp Metabolic Gjk072 GLUCOSE 164 mg/dL 12/29/2016 Comp Metabolic Jnu202 Creat 1.7 mg/dL 12/29/2016 Comp Metabolic Qrw482 eGFR 43 ml/min/1.73m2 12/29/2016 Comp Metabolic Mre961 BUN 22 mg/dL 12/29/2016 Comp Metabolic Myl260 B/C Ratio 13.3 Ratio 12/29/2016 Comp Metabolic Iph013 CALCIUM 9.5 mg/dL 12/29/2016 Comp Metabolic Qhp507 ALK PHOS 58 U/L 12/29/2016 Comp Metabolic Qdt216 AST(SGOT) 16 U/L 12/29/2016 Comp Metabolic Lrx022 ALT(SGPT) 16 U/L 12/29/2016 Comp Metabolic Zhi061 BILI T 0.9 mg/dL 12/29/2016 Comp Metabolic Feq584 ALBUMIN 3.9 g/dL 12/29/2016 Comp Metabolic Oms215 TPRO 6.4 g/dL 12/29/2016 Comp Metabolic Hat153 GLOB 2.5 g/dL 12/29/2016 Comp Metabolic Fyo456 A/G Ratio 1.5 Ratio 12/29/2016 Comp Metabolic Rux268 Osmo 279 mOsmo 12/29/2016 Total Psa Ord10 PSA 8.44 ng/mL 11/09/2016 %Hba1C Pem028 % HbA1c 81614-1 6.4 % 11/09/2016 %Hba1C Fci851 Gluc Ave 137 mg/dL 11/09/2016 Cbc With Differential Ord2 WBC 9.15 K/ul 11/09/2016 Cbc With Differential Ord2 RBC 4.00 M/ul 11/09/2016 Cbc With Differential Ord2 HGB 13.5 g/dl 11/09/2016 Cbc With Differential Ord2 Neut% 60.2 % 11/09/2016 Cbc With Differential Ord2 HCT 39.6 % 11/09/2016 Cbc With Differential Ord2 Lymph% 25.0 % 11/09/2016 Cbc With Differential Ord2 MCV 99.0 fl 11/09/2016 Cbc With Differential Ord2 MCH 33.8 pg 11/09/2016 Cbc With Differential Ord2 Newton% 11.8 % 11/09/2016 Cbc With Differential Ord2 MCHC 34.1 pg 11/09/2016 Cbc With Differential Ord2 Eos% 2.7 % 11/09/2016 Cbc With Differential Ord2 PLT 379 K/ul 11/09/2016 Cbc With Differential Ord2 Baso% 0.3 % 11/09/2016 Cbc With Differential Ord2 Neut ABS# 5.50 K/ul 11/09/2016 Cbc With Differential Ord2 RDW 12.8 % 11/09/2016 Cbc With Differential Ord2 Lymph ABS# 2.29 K/ul 11/09/2016 Cbc With Differential Ord2 [place] ABS# 1.1 K/ul 11/09/2016 Cbc With Differential Ord2 Eos ABS# 0.3 K/ul 11/09/2016 Cbc With Differential Ord2 Baso ABS# 0.0 K/ul 11/09/2016 Lipid Ord30 CHOL 152 mg/dL 11/09/2016 Lipid Ord30 HDL 46.0 mg/dl 11/09/2016 Lipid Ord30 TRIG 144 mg/dL 11/09/2016 Lipid Ord30 LDL 77 mg/dL 11/09/2016 Lipid Ord30 C/HDL 3.3 Ratio 11/09/2016 Comp Metabolic Dtu866 NA 140 mEq/L 11/09/2016 Comp Metabolic Een939 K 4.9 mEq/L 11/09/2016 Comp Metabolic Phr948 CL 106 mEq/L 11/09/2016 Comp Metabolic Guo649 CO2 25.0 mEq/L 11/09/2016 Comp Metabolic Ayy956 ANION GAP 14 11/09/2016 Comp Metabolic Lmc782 GLUCOSE 127 mg/dL 11/09/2016 Comp Metabolic Wfi952 Creat 1.7 mg/dL 11/09/2016 Comp Metabolic Kyc664 eGFR 43 ml/min/1.73m2 11/09/2016 Comp Metabolic Ulg098 BUN 21 mg/dL 11/09/2016 Comp Metabolic Ktf856 B/C Ratio 12.7 Ratio 11/09/2016 Comp Metabolic Qqy156 CALCIUM 9.5 mg/dL 11/09/2016 Comp Metabolic Dsm119 ALK PHOS 45 U/L 11/09/2016 Comp Metabolic Mpq952 AST(SGOT) 18 U/L 11/09/2016 Comp Metabolic Sod158 ALT(SGPT) 16 U/L 11/09/2016 Comp Metabolic Jvm707 BILI T 0.6 mg/dL 11/09/2016 Comp Metabolic Jlc450 ALBUMIN 3.9 g/dL 11/09/2016 Comp Metabolic Oiw594 TPRO 6.4 g/dL 11/09/2016 Comp Metabolic Ovz340 GLOB 2.5 g/dL 11/09/2016 Comp Metabolic Oos151 A/G Ratio 1.5 Ratio 11/09/2016 Comp Metabolic Zsv524 Osmo 284 mOsmo 11/09/2016 Tsh Ord6 hTSH [...] 15.1 % 03/10/2016 Cbc With Differential Ord2 Newton% 10.6 % 03/10/2016 Cbc With Differential Ord2 MCH 32.9 pg 03/10/2016 Cbc With Differential Ord2 Eos% 1.2 % 03/10/2016 Cbc With Differential Ord2 MCHC 33.8 pg 03/10/2016 Cbc With Differential Ord2 Baso% 0.2 % 03/10/2016 Cbc With Differential Ord2 PLT 364 K/ul 03/10/2016 Cbc With Differential Ord2 Neut ABS# 7.16 K/ul 03/10/2016 Cbc With Differential Ord2 RDW 12.8 % 03/10/2016 Cbc With Differential Ord2 Lymph ABS# 1.48 K/ul 03/10/2016 Cbc With Differential Ord2 [place] ABS# 1.0 K/ul 03/10/2016 Cbc With Differential Ord2 Eos ABS# 0.1 K/ul 03/10/2016 Cbc With Differential Ord2 Baso ABS# 0.0 K/ul 03/10/2016 %Hba1C Sif258 % HbA1c 49376-5 6.6 % 03/10/2016 %Hba1C Qcv255 Gluc Ave 143 mg/dL 03/10/2016 Comp Metabolic Ruy818 NA 138 mEq/L 03/10/2016 Comp Metabolic Mps550 K 4.9 mEq/L 03/10/2016 Comp Metabolic Trf643 CL 102 mEq/L 03/10/2016 Comp Metabolic Xvo970 CO2 28.0 mEq/L 03/10/2016 Comp Metabolic Wko897 ANION GAP 13 03/10/2016 Comp Metabolic Jaj309 GLUCOSE 135 mg/dL 03/10/2016 Comp Metabolic Hgs270 Creat 1.5 mg/dL 03/10/2016 Comp Metabolic Jpk449 eGFR 51 ml/min/1.73m2 03/10/2016 Comp Metabolic Mcb634 BUN 28 mg/dL 03/10/2016 Comp Metabolic Wzo711 B/C Ratio 19.3 Ratio 03/10/2016 Comp Metabolic Orf115 CALCIUM 9.8 mg/dL 03/10/2016 Comp Metabolic Afc679 ALK PHOS 52 U/L 03/10/2016 Comp Metabolic Gkq118 AST(SGOT) 19 U/L 03/10/2016 Comp Metabolic Dha547 ALT(SGPT) 22 U/L 03/10/2016 Comp Metabolic Yei522 BILI T 0.5 mg/dL 03/10/2016 Comp Metabolic Bhw293 ALBUMIN 4.4 g/dL 03/10/2016 Comp Metabolic Agj489 TPRO 6.8 g/dL 03/10/2016 Comp Metabolic Cdo186 GLOB 2.4 g/dL 03/10/2016 Comp Metabolic Gim739 A/G Ratio 1.8 Ratio 03/10/2016 Comp Metabolic Apd202 Osmo 283 mOsmo 03/10/2016 Comp Metabolic Edl654 NA 136 mEq/L 11/06/2015 Comp Metabolic Jnw020 K 4.0 mEq/L 11/06/2015 Comp Metabolic Thu773 CL 102 mEq/L 11/06/2015 Comp Metabolic Mxy741 CO2 27.0 mEq/L 11/06/2015 Comp Metabolic Fuc984 ANION GAP 11 11/06/2015 Comp Metabolic Mfe670 GLUCOSE 144 mg/dL 11/06/2015 Comp Metabolic Uvd588 Creat 1.2 mg/dL 11/06/2015 Comp Metabolic Obo223 eGFR 64 ml/min/1.73m2 11/06/2015 Comp Metabolic Ygg505 BUN 23 mg/dL 11/06/2015 Comp Metabolic Kwp004 B/C Ratio 19.3 Ratio 11/06/2015 Comp Metabolic Rai435 CALCIUM 10.2 mg/dL 11/06/2015 Comp Metabolic Uhj793 ALK PHOS 52 U/L 11/06/2015 Comp Metabolic Iia203 AST(SGOT) 16 U/L 11/06/2015 Comp Metabolic Djv195 ALT(SGPT) 19 U/L 11/06/2015 Comp Metabolic Xvq305 BILI T 0.7 mg/dL 11/06/2015 Comp Metabolic Rdl009 ALBUMIN 4.3 g/dL 11/06/2015 Comp Metabolic Bmr181 TPRO 6.8 g/dL 11/06/2015 Comp Metabolic Avl626 GLOB 2.5 g/dL 11/06/2015 Comp Metabolic Rdp027 A/G Ratio 1.7 Ratio 11/06/2015 Comp Metabolic Awh959 Osmo 278 mOsmo 11/06/2015 Lipid Ord30 CHOL 152 mg/dL 11/06/2015 Lipid Ord30 HDL 48.0 mg/dl 11/06/2015 Lipid Ord30 TRIG 79 mg/dL 11/06/2015 Lipid Ord30 LDL 88 mg/dL 11/06/2015 Lipid Ord30 C/HDL 3.2 Ratio 11/06/2015 %Hba1C Rqb695 % HbA1c 40175-5 7.3 % 11/06/2015 %Hba1C Isg567 Gluc Ave 163 mg/dL 11/06/2015 Cbc With Differential Ord2 WBC 8.97 K/ul 06/05/2015 Cbc With Differential Ord2 RBC 4.88 M/ul 06/05/2015 Cbc With Differential Ord2 HGB 16.0 g/dl 06/05/2015 Cbc With Differential Ord2 Neut% 66.8 % 06/05/2015 Cbc With Differential Ord2 HCT 46.7 % 06/05/2015 Cbc With Differential Ord2 MCV 95.7 fl 06/05/2015 Cbc With Differential Ord2 Lymph% 22.0 % 06/05/2015 Cbc With Differential Ord2 MCH 32.8 pg 06/05/2015 Cbc With Differential Ord2 Newton% 9.8 % 06/05/2015 Cbc With Differential Ord2 Eos% 1.0 % 06/05/2015 Cbc With Differential Ord2 MCHC 34.3 pg 06/05/2015 Cbc With Differential Ord2 PLT 375 K/ul 06/05/2015 Cbc With Differential Ord2 Baso% 0.4 % 06/05/2015 Cbc With Differential Ord2 RDW 12.9 % 06/05/2015 Cbc With Differential Ord2 Neut ABS# 5.99 K/ul 06/05/2015 Cbc With Differential Ord2 Lymph ABS# 1.97 K/ul 06/05/2015 Cbc With Differential Ord2 [place] ABS# 0.9 K/ul 06/05/2015 Cbc With Differential Ord2 Eos ABS# 0.1 K/ul 06/05/2015 Cbc With Differential Ord2 Baso ABS# 0.0 K/ul 06/05/2015 Cbc With Differential Ord2 New Analyzer Notice Please note new ref ranges starting 04-16-2015 due to implemntation of new five part differential hematolgy analyzer. 06/05/2015 %Hba1C Efz984 % HbA1c 90413-6 7.1 % 05/08/2015 %Hba1C Rwa148 Gluc Ave 157 mg/dL 05/08/2015 Microalbumin Tht401 MicroAlb 1.2 mg/dL 05/01/2015 Cbc With Differential Ord2 WBC 8.43 K/ul 04/30/2015 Cbc With Differential Ord2 RBC 5.25 M/ul 04/30/2015 Cbc With Differential Ord2 HGB 17.4 g/dl 04/30/2015 Cbc With Differential Ord2 Neut% 58.0 % 04/30/2015 Cbc With Differential Ord2 HCT 50.7 % 04/30/2015 Cbc With Differential Ord2 Lymph% 28.6 % 04/30/2015 Cbc With Differential Ord2 MCV 96.6 fl 04/30/2015 Cbc With Differential Ord2 MCH 33.1 pg 04/30/2015 Cbc With Differential Ord2 Newton% 11.2 % 04/30/2015 Cbc With Differential Ord2 MCHC 34.3 pg 04/30/2015 Cbc With Differential Ord2 Eos% 2.0 % 04/30/2015 Cbc With Differential Ord2 Baso% 0.2 % 04/30/2015 Cbc With Differential Ord2 PLT 374 K/ul 04/30/2015 Cbc With Differential Ord2 RDW 13.0 % 04/30/2015 Cbc With Differential Ord2 Neut ABS# 4.89 K/ul 04/30/2015 Cbc With Differential Ord2 Lymph ABS# 2.41 K/ul 04/30/2015 Cbc With Differential Ord2 Newton ABS# 0.9 K/ul 04/30/2015 Cbc With Differential [...] hTSH II 1.35 uIU/mL 04/30/2015 Comp Metabolic Vce839 NA 136 mEq/L 04/30/2015 Comp Metabolic Ylp876 K 4.5 mEq/L 04/30/2015 Comp Metabolic Pvt483 CL 100 mEq/L 04/30/2015 Comp Metabolic Zyl840 CO2 28.0 mEq/L 04/30/2015 Comp Metabolic Yci499 ANION GAP 13 04/30/2015 Comp Metabolic Yay758 GLUCOSE 162 mg/dL 04/30/2015 Comp Metabolic Aag108 Creat 1.2 mg/dL 04/30/2015 Comp Metabolic Efx515 eGFR 62 ml/min/1.73m2 04/30/2015 Comp Metabolic Oew457 BUN 21 mg/dL 04/30/2015 Comp Metabolic Cfz384 B/C Ratio 17.4 Ratio 04/30/2015 Comp Metabolic Iml910 CALCIUM 9.9 mg/dL 04/30/2015 Comp Metabolic Euu092 ALK PHOS 51 U/L 04/30/2015 Comp Metabolic God681 AST(SGOT) 18 U/L 04/30/2015 Comp Metabolic Esc663 ALT(SGPT) 23 U/L 04/30/2015 Comp Metabolic Gsl623 BILI T 0.5 mg/dL 04/30/2015 Comp Metabolic Raz805 ALBUMIN 4.2 g/dL 04/30/2015 Comp Metabolic Jys478 TPRO 6.9 g/dL 04/30/2015 Comp Metabolic Hwa370 GLOB 2.7 g/dL 04/30/2015 Comp Metabolic Gnw837 A/G Ratio 1.6 Ratio 04/30/2015 Comp Metabolic Fxt631 Osmo 278 mOsmo 04/30/2015 Metabolic Ord15 NA [...] Differential Ord2 RDW 13.6 % 01/28/2015 %Hba1C Nqp522 % HbA1c 37845-0 7.3 % 01/28/2015 %Hba1C Lev130 Gluc Ave 163 mg/dL 01/28/2015 %Hba1C Wmm389 % HbA1c 33469-2 7.8 % 10/24/2014 %Hba1C Cwu765 Gluc Ave 177 mg/dL 10/24/2014 Cbc With [...] Ord2 RDW 13.7 % 10/23/2014 Comp Metabolic Vlz079 NA 135 mEq/L 10/23/2014 Comp Metabolic Yef825 K 4.4 mEq/L 10/23/2014 Comp Metabolic Qpl380 CL 99 mEq/L 10/23/2014 Comp Metabolic Pnb100 CO2 31.0 mEq/L 10/23/2014 Comp Metabolic Qhi519 ANION GAP 9 10/23/2014 Comp Metabolic Ftv153 GLUCOSE 203 mg/dL 10/23/2014 Comp Metabolic Quo175 Creat 1.1 mg/dL 10/23/2014 Comp Metabolic Lez620 eGFR 72 ml/min/1.73m2 10/23/2014 Comp Metabolic Jdr122 BUN 19 mg/dL 10/23/2014 Comp Metabolic Gme570 B/C Ratio 17.8 Ratio 10/23/2014 Comp Metabolic Zte928 CALCIUM 10.2 mg/dL 10/23/2014 Comp Metabolic Cua927 ALK PHOS 55 U/L 10/23/2014 Comp Metabolic Qgw279 AST(SGOT) 22 U/L 10/23/2014 Comp Metabolic Hxf956 ALT(SGPT) 34 U/L 10/23/2014 Comp Metabolic Dvy793 BILI T 0.8 mg/dL 10/23/2014 Comp Metabolic Zhp884 ALBUMIN 4.3 g/dL 10/23/2014 Comp Metabolic Hgw597 TPRO 6.7 g/dL 10/23/2014 Comp Metabolic Fww323 GLOB 2.4 g/dL 10/23/2014 Comp Metabolic Emj528 A/G Ratio 1.8 Ratio 10/23/2014 Comp Metabolic Aqs146 Osmo 278 mOsmo 10/23/2014 Review of Systems [...] hygiene 05/05/2017 None Full Exam - General 1995 Ears/Nose/Throat oral cavity/pharynx/larynx Overall: oral mucosa clear 05/05/2017 None Full Exam - General 1995 Ears/Nose/Throat [...] -4: G0439 03/12/2016 DESTRUCT PREMALG LESION CPT-4: 96657 10/23/2014 DESTRUCT PREMALG LES 2-14 CPT-4: 73840 10/23/2014 Vital Signs Date Vital 01/30/2018 Blood Pressure 1: 144/64 Code : 8480-6 Blood Pressure 2: 150/64 Code: 8480-6 BMI: 29.6 Code: 29670-3 Heart Rate 1: 61 bpm Height: 5'5" SpO2: 98% Weight: 178 lbs 09/07/2017 Blood Pressure 1: 148/68 Code : 8480-6 BMI: 29.6 Code : 90150-9 Heart Rate 1 : 60 bpm Height: 5'5" SpO2: 98% Weight: 178 lbs 05/05/2017 Blood Pressure 1: 122/64 Code : 8480-6 BMI: 28.3 Code : 03848-7 Heart Rate 1 : 56 bpm Height: 5'5" SpO2: 97% Weight: 170 lbs 2017 BMI: 29.1 Code: 04465-4 Height: 5'5" Weight: 175 lbs 03/15/2017 Blood Pressure 1: 136/76 Code : 8480-6 BMI: 29.1 Code : 27480-6 Heart Rate 1 : 82 bpm Height: 5'5" SpO2: 98% Weight: 175 lbs 03/03/2017 BMI: 29.1 Code: 84626-7 Height: 5'5" Weight: 175 lbs 02/02/2017 Blood Pressure 1: 132/60 Code : 8480-6 BMI: 28.6 Code : 65408-7 Heart Rate 1 : 64 bpm Height: 5'5" SpO2: 99% Weight: 172 lbs 01/04/2017 Blood Pressure 1: 138/70 Code : 8480-6 BMI: 29.6 Code : 27285-7 Heart Rate 1 : 59 bpm Height: 5'5" SpO2: 99% Weight: 178 lbs 11/16/2016 Blood Pressure 1: 150/70 Code : 8480-6 BMI: 30.6 Code : 93825-0 Heart Rate 1 : 68 bpm Height: 5'5" SpO2: 94% Weight: 184 lbs 07/19/2016 Blood Pressure 1: 150/70 Code : 8480-6 Blood Pressure 2: 154/70 Code: 8480-6 BMI: 31.0 Code: 31163-5 Heart Rate 1: 61 bpm Height: 5'5" SpO2: 98% Weight: 186 lbs 03/12/2016 Blood Pressure 1: 156/80 Code : 8480-6 BMI: 30.5 Code : 42911-0 Heart Rate 1 : 60 bpm Height: 5'5" SpO2: 98% Waist Measure (cm): 91 cm Weight: 183 lbs 03/10/2016 Blood Pressure 1: 158/78 Code : 8480-6 Blood Pressure 1: 158/78 Code: 8480-6 BMI: 30.5 Code: 63403-1 Heart Rate 1: 61 bpm Height: 5'5" SpO2: 98% Weight: 183 lbs 11/06/2015 Blood Pressure 1: 156/80 Code : 8480-6 Blood Pressure 1: 138/70 Code: 8480-6 BMI: 30.1 Code: 44823-9 Heart Rate 1: 64 bpm Height: 5'5" SpO2: 98% Weight: 181 lbs 09/09/2015 Blood Pressure 1: 126/68 Code : 8480-6 08/26/2015 Blood Pressure 1: 168/74 Code : 8480-6 Blood Pressure 1: 162/76 Code: 8480-6 BMI: 29.8 Code: 55660-9 Heart Rate 1: 61 bpm Height: 5'5" SpO2: 98% Weight: 179 lbs 07/29/2015 Blood Pressure 1: 166/76 Code : 8480-6 BMI: 30.0 Code : 38209-8 Heart Rate 1 : 75 bpm Height: 5'5" SpO2: 99% Weight: 180 lbs 04/29/2015 Blood Pressure 1: 130/70 Code : 8480-6 Blood Pressure 1: 132/76 Code: 8480-6 BMI: 30.8 Code: 45177-8 Heart Rate 1: 64 bpm Height: 5'5" SpO2: 99% Weight: 185 lbs 10/23/2014 Blood Pressure 1: 140/76 Code : 8480-6 BMI: 30.5 Code : 57784-0 Heart Rate 1 : 63 bpm Height: [...] testing 07/29/2015 - checks twice weekly on Mon and diabetes mellitus Test results Pt checking [...] data Encounters Encounter Performer Location Codes Date ([id number]) [id number] EST. PATIENT, LEVEL IV Diagnosis: Type 2 diabetes mellitus with hyperglycemia[ICD10: E11.65] Diagnosis: Chronic kidney disease, stage 3 (moderate)[ICD10: N18.3] Diagnosis: Essential (primary) hypertension[ICD10: I10] Virginie Isaac MD, [facility] CPT-4: 41673 01/30/2018 ([id number]) 65380 EST. PATIENT, LEVEL IV Diagnosis: Essential (primary) hypertension[ICD10: I10] Diagnosis: Type 2 diabetes mellitus without complications[ICD10: E11.9] Diagnosis: Malignant neoplasm of prostate[ICD10: C61] Diagnosis: Chronic kidney disease, stage 3 (moderate)[ICD10: N18.3] Virginie Isaac MD [facility] CPT-4: 34325 09/07/2017 ([id number]) 84548 EST. PATIENT, LEVEL IV Diagnosis: Type 2 diabetes mellitus without complications[ICD10: E11.9] Diagnosis: Essential (primary) hypertension[ICD10: I10] Diagnosis: Changes in skin texture[ICD10: R23.4] Diagnosis: Chronic kidney disease, stage 3 (moderate)[ICD10: N18.3] Virginie Isaac MD [facility] CPT-4: 74670 05/05/2017 ([id number]) Miscellaneous no charge Diagnosis: Abnormal weight loss[ICD10: R63.4] Virginie Isaac MD [facility] CPT-4: 99105 2017 ([id number]) Miscellaneous no charge Diagnosis: Abnormal weight loss[ICD10: R63.4] Virginie Isaac MD [facility] CPT-4: 76683 03/03/2017 ([id number]) 52272 EST. PATIENT, LEVEL III Diagnosis: Type 2 diabetes mellitus with hyperglycemia[ICD10: E11.65] Diagnosis: Essential (primary) hypertension[ICD10: I10] Virginie Isaac MD [facility] CPT-4: 67210 02/02/2017 ([id number]) 17745 EST. PATIENT, LEVEL IV Diagnosis: Type 2 diabetes mellitus with hyperglycemia[ICD10: E11.65] Diagnosis: Essential (primary) hypertension[ICD10: I10] Diagnosis: Chronic kidney disease, stage 3 (moderate)[ICD10: N18.3] Virginie Isaac MD [facility] CPT-4: 53359 01/04/2017 ([id number] 92787 EST. PATIENT, LEVEL IV Diagnosis: Type 2 diabetes mellitus with hyperglycemia[ICD10: E11.65] Diagnosis: Essential (primary) hypertension[ICD10: I10] Diagnosis: Chronic kidney disease, stage 3 (moderate)[ICD10: N18.3] Diagnosis: Elevated prostate specific antigen [PSA][ICD10: R97.20] Virginie Isaac MD [facility] CPT-4: 33696 11/16/2016 ([id number]) 68660 EST. PATIENT, LEVEL IV Diagnosis: Essential (primary) hypertension[ICD10: I10] Diagnosis: Type 2 diabetes mellitus with hyperglycemia[ICD10: E11.65] Diagnosis: Mixed hyperlipidemia[ICD10: E78.2] Virginie Isaac MD [facility] CPT-4: 25770 07/19/2016 ([id number]) 20264 EST. PATIENT, LEVEL IV Diagnosis: Type 2 diabetes mellitus with hyperglycemia[ICD10: E11.65] Diagnosis: Essential (primary) hypertension[ICD10: I10] Diagnosis: Mixed hyperlipidemia[ICD10: E78.2] Virginie Isaac MD [facility] CPT-4: 63423 03/10/2016 ([id number]) 93275 EST. PATIENT, LEVEL III Diagnosis: Essential (primary) hypertension[ICD10: I10] Diagnosis: Type 2 diabetes mellitus with hyperglycemia[ICD10: E11.65] Diagnosis: Hyperlipidemia, unspecified[ICD10: E78.5] Virginie Isaac MD [facility] CPT-4: 16353 11/06/2015 ([id number]) Miscellaneous no charge Diagnosis: Essential (primary) hypertension[ICD10: I10] Scarlett Isaac MD [facility] CPT-4: 19320 09/09/2015 ([id number]) 62087 EST. PATIENT, LEVEL III Diagnosis: Essential (primary) hypertension[ICD10: I10] Diagnosis: Other skin changes[ICD10: R23.8] Virginie Isaac MD [facility] CPT-4: 62502 08/26/2015 ([id number]) 80681 EST. PATIENT, LEVEL IV Diagnosis: Essential (primary) hypertension[ICD10: I10] Diagnosis: Unspecified amblyopia, right eye[ICD10: H53.001] Diagnosis: Other skin changes[ICD10: R23.8] Virginie Isaac MD [facility] CPT-4: 47013 07/29/2015 ([id number]) 91650 EST. PATIENT, LEVEL IV Diagnosis: Type 2 diabetes mellitus with hyperglycemia[ICD10: E11.65] Diagnosis: Essential (primary) hypertension[ICD10: I10] Diagnosis: Hyperlipidemia, unspecified[ICD10: E78.5] [facility] CPT-4: 99537 04/29/2015 ([id number]) OFFICE VISIT, NEW - LEVEL 4 Diagnosis: ESSENTIAL HYPERTENSION[ICD9: 401.9] Diagnosis: DIABETES TYPE II[ICD9: 250.00] Diagnosis: ACTINIC KERATOSIS[ICD9: 702.0] Diagnosis: Impacted cerumen[ICD9: 380.4] [facility] CPT- 4: 72425 10/23/2014 Plan of Care Planned Activity Notes Codes Status Date Patient Education: Patient Medication Summary Completed 03/03/2018 Care Plan: Metabolic Pending 03/03/2018 Visit Plan: Diabetes Mellitus - controlled [...] recommended that he needs to see a Service Associate, but Suleman is not interested at this time. He has agreed to have repeat bmp in one month off of the hctz and to start on renal diet. Prostate cancer - continue with plans to be seen by Dr. Modi at the cancer center. 01/30/2018 Appointment: Virginie Isaac WPtel: [facility] [place] [facility] [place] (15 min) Moderate 01/30/2018 Patient Education: Patient Medication Summary Completed 01/30/2018 Appointment: Virgin[facility] Isaac [facility]Ptel: [phone] [facility] (15 min) Moderate 01/10/2018 Visit Plan: Diabetes [...] pt is not interested in seeing a Service Associate as has been recommended to patient. 09/07/2017 Appointment: Virgin[facility]el[phone] (15 min) Moderate 09/07/2017 Patient Education: Patient [...] pt is not interested in seeing a Service Associate as has been recommended to patient. Elevated PSA -pt seeing Dr. Harrison. 05/05/2017 Appointment: Virginie Isaac WPtel: [phone] [facility] (15 min) Moderate 05/05/2017 Patient Education: Patient Medication Summary Completed 05/05/2017 [phone] (15 min) Moderate 04/14/2017 Appointment: Nurse Visit [...] care surrogate. 03/15/2017 Appointment: [phone] [phone] [place] [address] - Annual Wellness Visit 03/15/2017 Patient Education: [...] home. 02/02/2017 Appointment: [facility] Isaac [facility]Ptel[phone] (15 min) Moderate 02/02/2017 Patient Education: [...] Hypertension Completed 01/04/2017 Appointment: Virgin[facility] Isaac [facility]Ptel: [phone] [facility] (15 min) Moderate 12/23/2016 Appointment: Virginie Isaac WPtel: [facility] [place] [facility] [place] [facility] (15 min) Moderate 12/22/2016 Visit Plan: Hypertension [...] orange juice. 11/16/2016 Appointment: Virginie Isaac WPtel: [facility] [place] [facility] [place] [facility] (15 min) Moderate 11/16/2016 Patient Education: Patient [...] to medications. 07/19/2016 Appointment: Virginie Isaac WPtel: [address] [place], [place] [address] (15 min) Moderate 07/19/2016 Patient Education: Patient Medication Summary Completed 07/19/2016 Patient Education: Obesity Completed 07/19/2016 Patient Education: Hypertension Completed 07/19/2016 Appointment: Virgin[facility] Isaac [facility]Ptel: [phone] [facility] (15 min) Moderate 07/06/2016 Visit Plan: Medicare [...] surrogate. 03/12/2016 Appointment: Niecy Sullivan WPtel: [phone] [phone] [facility] - Annual Wellness Visit 03/12/2016 [...] at hs 03/10/2016 Appointment: Virginie Isaac [facility]Ptel: [phone] [facility] (15 min) Moderate 03/10/2016 Patient Education: [...] Obesity Completed 11/06/2015 Appointment: Niecy Sullivan WPtel: [address] [place], [place] [phone] (30 min) Complex 10/27/2015 Appointment: Nurse Visit [...] have repeat treatment - one on left methodist and one on posterior scalp. 08/26/2015 Patient Education: Patient Medication Summary Completed 08/26/2015 Patient Education: Hypertension Completed 08/26/2015 Referral: Tariq Ramirez WPtel: [address] [place], [place] [phone] Referral Completed 08/05/2015 Visit Plan: Hypertension - [...] of efudex. 07/29/2015 Appointment: Virginie Isaac WPtel: [facility] [place] [facility] [place] [facility] (15 min) Moderate 07/29/2015 Patient Education: Patient Medication Summary Completed 07/29/2015 Patient Education: Obesity Completed 07/29/2015 Patient Education: Hypertension Completed 07/29/2015 Care Plan: Referral Order SNOMED-CT : [id number] Pending 07/29/2015 Patient Education: Patient Medication Summary [...] Care Plan: COMPLETE CBC AUTOMATED LOINC : 82887-7 Ordered 04/29/2015 Care Plan: MICROALBUMIN QUANTITATIVE LOINC : 15921-6 Ordered 04/29/2015 Appointment: (15 min) Moderate 03/31/2015 Appointment: Virginie Isaac WPtel: [facility] [place] [facility] [place] [facility] (15 min) Moderate 01/22/2015 Visit Plan: Hypertension [...] office visit. 10/23/2014 Appointment: Virginie Isaac WPtel: [address] [place], [place] [address] [place] New Patient 10/23/2014 Patient Education: Patient Medication Summary Completed 10/23/2014 Patient Education: Hypertension Completed 10/23/2014 Referral: Tariq Ramirez WPtel: [address] [place] [address] Referral Appointment Requested Instructions Comment . Diabetes [...] recommended that he needs to see a Service Associate, but Suleman is not interested at this [...] pt is not interested in seeing a Service Associate as has been recommended to patient. use [...] normal liver response to medications. . Hypertension - uncontrolled - the patient's [...] have repeat treatment - one on left methodist and one on posterior scalp. . Medicare [...] pt is not interested in seeing a Service Associate as has been recommended to patient. Elevated [...]
--- OUTSIDE RECORDS SUMMARY | 2018-03-14 06:13 | XMS REPORT | CCD ---
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 Name Role Phone PP Unavailable CCM Unavailable Summary Purpose Interface Exchange Insurance Providers Payer name Policy type / Coverage type Covered constitution party ID Effective Begin Date Effective End Date WPS Medicare Part B Medicare Part B [id number] 2018 Unknown [facility] Medicare Part B No Plan Member ID [...] self employed 10/23/[address]: 592297187 Never smoker 10/23/[address]: 477608069 Never drinks alcohol 10/23/2014 Allergies, Adverse Reactions, [...] PM bisoprolol fumarate 5 mg tablet RxNorm: 861129 1 Tablet(s) PO BID 01/30/2018 08/27/2018 Active this replaces his combination pill glimepiride 2 mg tablet RxNorm: 589630 TAKE 1/2 (ONE- HALF) TABLET BY MOUTH TWICE DAILY 12/06/2017 06/03/2018 Active Generic For:AMARYL 2MG 12/06/2017 9:07:06 AM losartan 100 mg tablet RxNorm: 919293 TAKE 1 TABLET BY MOUTH DAILY 11/07/2017 06/04/2018 Active Generic For:COZAAR 100MG 11/07/2017 9:05:45 AM bisoprolol 5 mg-hydrochlorothiazide 6.25 mg tablet RxNorm: 539413 TAKE 1 TABLET BY MOUTH TWICE DAILY 09/15/20172017 Inactive Generic For:ZIAC 5-6.25MG 09/15/2017 9:07:10 AM simvastatin 20 mg tablet RxNorm: 146798 TAKE ONE TABLET BY MOUTH DAILY 06/17/2017 03/13/2018 Active Generic For:ZOCOR 20MG 06/17/2017 9:01:38 AM glimepiride 2 mg tablet RxNorm: 957328 TAKE 1/2 (ONE- HALF) TABLET BY MOUTH TWICE DAILY 06/17/2017 12/05/2017 Inactive Generic For:AMARYL 2MG 06/17/2017 9:01:41 AM losartan 100 mg tablet RxNorm: 053147 TAKE 1 TABLET BY MOUTH DAILY 04/18/2017 11/06/2017 Inactive Generic For:COZAAR 100MG 04/18/2017 9:40:33 AM bisoprolol 5 mg-hydrochlorothiazide 6.25 mg tablet RxNorm: 696248 TAKE 1 TABLET BY MOUTH TWICE DAILY 02/17/20172017 Inactive Generic For:ZIAC 5-6.25MG 02/17/2017 9:04:42 AM glimepiride 2 mg tablet RxNorm: 330360 1/2 Tablet(s) BID 201606/16/2017 Inactive Generic For:AMARYL 2MG 07/22/2016 9:03:39 AM Zithromax 250 mg tablet RxNorm: 699355 two pills on day #1 then 1 Tablet(s) PO daily 01/04/2017 01/08/2017 Inactive zpackx1 glimepiride 2 mg tablet RxNorm: 873083 1 Tablet(s) TAKE 1 TABLET BY MOUTH TWICE DAILY 11/17/2016 02/01/2017 Inactive Generic For:AMARYL 2MG 07/22/2016 9:03:39 AM glimepiride 2 mg tablet RxNorm: 597294 1 Tablet(s) TAKE 1 TABLET BY MOUTH TWICE DAILY 11/17/2016 11/16/2016 Inactive Generic For:AMARYL 2MG 07/22/2016 9:03:39 AM Ness Allergy 180 mg tablet RxNorm: 995287 1 Tablet(s) PO daily 10/25/2016 10/24/2016 Inactive Zithromax 250 mg tablet RxNorm: 154577 1 Tablet(s) PO daily 10/24/2016 Inactive zpackx1 Ness Allergy 180 mg tablet RxNorm: 249198 1 Tablet(s) PO daily 10/25/2016 03/07/2017 Inactive Zithromax 250 mg tablet RxNorm: 985217 1 Tablet(s) PO daily 10/29/2016 Inactive zpackx1 glimepiride 2 mg tablet RxNorm: 653773 1/2 Tablet(s) TAKE 1 TABLET BY MOUTH TWICE DAILY 10/12/2016 11/16/2016 Inactive Generic For:AMARYL 2MG 07/22/2016 9:03:39 AM losartan 100 mg tablet RxNorm: 573488 1 Tablet(s) PO daily 04/17/2017 Inactive metformin 500 mg tablet RxNorm: 930595 TAKE 1 TABLET BY MOUTH TWICE DAILY 09/20/2016 11/15/2016 Inactive Generic For:GLUCOPHAGE 500MG 09/20/2016 9:11:58 AM simvastatin 20 mg tablet RxNorm: 573933 TAKE ONE TABLET BY MOUTH DAILY 09/20/2016 06/16/2017 Inactive Generic For:ZOCOR 20MG 09/20/2016 9:11:29 AM bisoprolol 5 mg-hydrochlorothiazide 6.25 mg tablet RxNorm: 362965 TAKE 1 TABLET BY MOUTH TWICE DAILY 07/22/20162016 Inactive Generic For:ZIAC 5-6.25MG 07/22/2016 9:03:48 AM glimepiride 2 mg tablet RxNorm: 108730 TAKE 1 TABLET BY MOUTH TWICE DAILY 07/22/2016 10/11/2016 Inactive Generic For:AMARYL 2MG 07/22/2016 9:03:39 AM meloxicam 15 mg tablet RxNorm: 400931 TAKE 1 TABLET BY MOUTH DAILY 05/24/2016 11/15/2016 Inactive Generic For:MOBIC 15MG 05/24/2016 9:12:11 AM metformin 500 mg tablet RxNorm: 213944 1 Tablet(s) BID 201609/19/2016 Inactive Generic For:GLUCOPHAGE 500MG 04/29/2015 3:46:58 PM bisoprolol 5 mg-hydrochlorothiazide 6.25 mg tablet RxNorm: 818880 TAKE 1 TABLET BY MOUTH TWICE DAILY 03/31/20162016 Inactive Generic For:ZIAC 5-6.25MG 03/31/2016 12:38:33 PM glimepiride 2 mg tablet RxNorm: 511007 TAKE 1 TABLET BY MOUTH TWICE DAILY 03/31/2016 07/21/2016 Inactive Generic For:AMARYL 2MG 03/31/2016 12:38:28 PM losartan 100 mg tablet RxNorm: 565814 1 Tablet(s) PO daily 09/19/2016 Inactive simvastatin 20 mg tablet RxNorm: 438619 1 Tablet(s) PO daily 09/18/2016 Inactive glimepiride 2 mg tablet RxNorm: 248516 1 Tablet(s) PO BID 11/2303/22/2016 Inactive meloxicam 15 mg tablet RxNorm: 746850 1 Tablet(s) PO daily 05/21/2016 Inactive bisoprolol 5 mg-hydrochlorothiazide 6.25 mg tablet RxNorm: 329275 1 Tablet(s) PO BID 11/24/2015 03/22/2016 Inactive Generic For:ZIAC 5-6.25MG 03/31/2015 4:06:14 PM03/31/2015 3:58:36 PM metformin 500 mg tablet RxNorm: 271960 1 Tablet(s) BID 201504/04/2016 Inactive Generic For:GLUCOPHAGE 500MG 04/29/2015 3:46:58 PM losartan 50 mg tablet RxNorm: 753281 1 Tablet(s) PO daily 201502/29/2016 Inactive bisoprolol 5 mg-hydrochlorothiazide 6.25 mg tablet RxNorm: 653857 1 Tablet(s) PO BID 07/29/2015 11/23/2015 Inactive Generic For:ZIAC 5-6.25MG 03/31/2015 4:06:14 PM03/31/2015 3:58:36 PM bisoprolol 5 mg-hydrochlorothiazide 6.25 mg tablet RxNorm: 577488 Tablet(s) 1 TABLET(S) BY MOUTH DAILY 07/21/20152015 Inactive Generic For:ZIAC 5-6.25MG 03/31/2015 4:06:14 PM03/31/2015 3:58:36 PM meloxicam 15 mg tablet RxNorm: 304202 1 Tablet(s) PO daily 11/17/2015 Inactive glimepiride 2 mg tablet RxNorm: 030323 1 Tablet(s) PO BID 07/2011/17/2015 Inactive metformin 500 mg tablet RxNorm: 479614 Tablet(s) TAKE 1 TABLET BY MOUTH IN THE MORNING AND 1/2 TABLET IN THE EVENING 06/16/2015 11/06/2015 Inactive Generic For: GLUCOPHAGE 500MG 04/29/2015 3:46:58 PM metformin 500 mg tablet RxNorm: 519331 Tablet(s) TAKE 1 TABLET BY MOUTH IN THE MORNING AND 1/2 TABLET IN THE EVENING 05/19/2015 06/15/2015 Inactive Generic For: GLUCOPHAGE 500MG 04/29/2015 3:46:58 PM metformin 500 mg tablet RxNorm: 770301 TAKE 1/2 (ONE- HALF) TABLET BY MOUTH DAILY BY MOUTH TWICE DAILY 04/29/20152015 Inactive Generic For:GLUCOPHAGE 500MG 04/29/2015 3:46:58 PM meloxicam 15 mg tablet RxNorm: 546479 1 Tablet(s) PO daily 07/20/2015 Inactive simvastatin 20 mg tablet RxNorm: 937583 1 Tablet(s) PO daily 12/23/2015 Inactive bisoprolol 5 mg-hydrochlorothiazide 6.25 mg tablet RxNorm: 138570 1 TABLET(S) BY MOUTH DAILY 03/31/2015 07/20/2015 Inactive Generic For:ZIAC 5-6.25MG 03/31/2015 4: 06:14 PM03/31/2015 3:58:36 PM glimepiride 2 mg tablet RxNorm: 469562 1 Tablet(s) PO BID 02/0506/04/2015 Inactive increase to BID metformin 500 mg tablet RxNorm: 216684 1/2 Tablet(s) PO BID 04/20/2015 Inactive bisoprolol 5 mg-hydrochlorothiazide 6.25 mg tablet RxNorm: 785082 1 Tablet(s) PO daily 12/05/2014 12/04/2014 Inactive bisoprolol 5 mg-hydrochlorothiazide 6.25 mg tablet RxNorm: 606769 1 Tablet(s) PO daily 12/05/2014 03/30/2015 Inactive meloxicam 15 mg tablet RxNorm: 510235 1 Tablet(s) PO daily 04/201404/01/2015 Inactive Truetest Test Strips RxNorm: Miscellaneous daily 11/20/2014 11/19/2014 Inactive Truetest Test Strips RxNorm: Miscellaneous daily 11/20/2014 11/14/2015 Inactive finasteride 5 mg tablet RxNorm: 705145 1 Tablet(s) PO daily No Start Date Active tamsulosin 0.4 mg capsule RxNorm: 275545 1 Capsule(s) PO daily No Start Date Active simvastatin 20 mg tablet RxNorm: 100471 1 Tablet(s) PO daily No Start Date 04/01/2015 Inactive meloxicam 15 mg tablet RxNorm: 200247 1 Tablet(s) PO daily No Start Date 12/02/2014 Inactive metformin 500 mg tablet RxNorm: 819720 1/2 Tablet(s) PO BID No Start Date 01/20/2015 Inactive glimepiride 2 mg tablet RxNorm: 812089 1 Tablet(s) PO daily No Start Date 02/04/2015 Inactive Ziac 5 mg-6.25 mg tablet RxNorm: 822982 1 Tablet(s) PO daily No Start Date 04/02/2015 Inactive Medication Administered No Medication Administered data Immunizations No Immunization data Assessments Condition Codes Effective Dates Type 2 diabetes mellitus with hyperglycemia ICD-10: E11.65 ICD-9: 250.00 01/30/2018 Chronic kidney disease, stage 3 (moderate) ICD-10: N18.3 ICD-9: 585.3 01/30/2018 Essential (primary) hypertension ICD-10: I10 ICD-9: 401.1 01/30/2018 Type 2 diabetes mellitus without complications [...] Code Item Item Code Result Date %Hba1C Sxe666 % HbA1c 63253-2 6.7 % 01/02/2018 %Hba1C Ogz627 Gluc Ave 146 mg/dL 01/02/2018 Cbc With [...] 32.7 pg 01/02/2018 Cbc With Differential Ord2 [place]% 9.2 % 01/02/2018 Cbc With Differential Ord2 [...] 1.45 K/ul 01/02/2018 Cbc With Differential Ord2 [place] ABS# 0.7 K/ul 01/02/2018 Cbc With Differential Ord2 Eos ABS# 0.1 K/ul 01/02/2018 Cbc With Differential Ord2 Baso ABS# 0.0 K/ul 01/02/2018 Comp Metabolic Cco406 NA 138 mEq/L 01/02/2018 Comp Metabolic Fzy846 K 4.5 mEq/L 01/02/2018 Comp Metabolic Ijy558 CL 103 mEq/L 01/02/2018 Comp Metabolic Bbh674 CO2 28.0 mEq/L 01/02/2018 Comp Metabolic Scr564 ANION GAP 12 01/02/2018 Comp Metabolic Nsk803 GLUCOSE 186 mg/dL 01/02/2018 Comp Metabolic Tto605 Creat 1.9 mg/dL 01/02/2018 Comp Metabolic Kwl848 eGFR 37 ml/min/1.73m2 01/02/2018 Comp Metabolic Wig153 BUN 23 mg/dL 01/02/2018 Comp Metabolic Uhj991 B/C Ratio 12.2 Ratio 01/02/2018 Comp Metabolic Mep913 CALCIUM 9.4 mg/dL 01/02/2018 Comp Metabolic Pqf344 ALK PHOS 46 U/L 01/02/2018 Comp Metabolic Rqd224 AST(SGOT) 16 U/L 01/02/2018 Comp Metabolic Chc888 ALT(SGPT) 19 U/L 01/02/2018 Comp Metabolic Dlh129 BILI T 0.6 mg/dL 01/02/2018 Comp Metabolic Eym871 ALBUMIN 3.8 g/dL 01/02/2018 Comp Metabolic Gmw117 TPRO 6.1 g/dL 01/02/2018 Comp Metabolic Pqm884 GLOB 2.3 g/dL 01/02/2018 Comp Metabolic Cls314 A/G Ratio 1.6 Ratio 01/02/2018 Comp Metabolic Fhp751 Osmo 284 mOsmo 01/02/2018 %Hba1C Zqj680 % HbA1c 37852-7 6.5 % 08/31/2017 %Hba1C Eev981 Gluc Ave 140 mg/dL 08/31/2017 Lipid Ord30 [...] 33.0 pg 08/31/2017 Cbc With Differential Ord2 [place]% 11.7 % 08/31/2017 Cbc With Differential Ord2 [...] 1.77 K/ul 08/31/2017 Cbc With Differential Ord2 [place] ABS# 0.9 K/ul 08/31/2017 Cbc With Differential Ord2 Eos ABS# 0.1 K/ul 08/31/2017 Cbc With Differential Ord2 Baso ABS# 0.0 K/ul 08/31/2017 Comp Metabolic Wvc704 NA 139 mEq/L 08/31/2017 Comp Metabolic Gam771 K 4.7 mEq/L 08/31/2017 Comp Metabolic Wge003 CL 107 mEq/L 08/31/2017 Comp Metabolic Ejp533 CO2 24.0 mEq/L 08/31/2017 Comp Metabolic Vvv509 ANION GAP 13 08/31/2017 Comp Metabolic Ugc333 GLUCOSE 158 mg/dL 08/31/2017 Comp Metabolic Ofc339 Creat 1.7 mg/dL 08/31/2017 Comp Metabolic Lkj719 eGFR 43 ml/min/1.73m2 08/31/2017 Comp Metabolic Fas128 BUN 26 mg/dL 08/31/2017 Comp Metabolic Frk025 B/C Ratio 15.5 Ratio 08/31/2017 Comp Metabolic Aux103 CALCIUM 9.5 mg/dL 08/31/2017 Comp Metabolic Rhh454 ALK PHOS 47 U/L 08/31/2017 Comp Metabolic Xrl622 AST(SGOT) 16 U/L 08/31/2017 Comp Metabolic Iiu806 ALT(SGPT) 17 U/L 08/31/2017 Comp Metabolic Ctv853 BILI T 0.8 mg/dL 08/31/2017 Comp Metabolic Dgw168 ALBUMIN 4.0 g/dL 08/31/2017 Comp Metabolic Vqm964 TPRO 6.4 g/dL 08/31/2017 Comp Metabolic Urj971 GLOB 2.5 g/dL 08/31/2017 Comp Metabolic Bax162 A/G Ratio 1.6 Ratio 08/31/2017 Comp Metabolic Qkv964 Osmo 286 mOsmo 08/31/2017 Tsh Ord6 hTSH II 1.25 uIU/mL 04/27/2017 Cbc With Differential Ord2 WBC 6.48 K/ul 04/27/2017 Cbc With Differential Ord2 RBC 4.53 M/ul 04/27/2017 Cbc With Differential Ord2 HGB 14.7 g/dl 04/27/2017 Cbc With Differential Ord2 HCT 44.4 % 04/27/2017 Cbc With Differential Ord2 Neut% 64.9 % 04/27/2017 Cbc With Differential Ord2 Lymph% 21.9 % 04/27/2017 Cbc With Differential Ord2 MCV 98.0 fl 04/27/2017 Cbc With Differential Ord2 MCH 32.5 pg 04/27/2017 Cbc With Differential Ord2 [place]% 10.5 % 04/27/2017 Cbc With Differential Ord2 Eos% 2.2 % 04/27/2017 Cbc With Differential Ord2 MCHC 33.1 pg 04/27/2017 Cbc With Differential Ord2 Baso% 0.5 % 04/27/2017 Cbc With Differential Ord2 PLT 378 K/ul 04/27/2017 Cbc With Differential Ord2 Neut ABS# 4.21 K/ul 04/27/2017 Cbc With Differential Ord2 RDW 13.0 % 04/27/2017 Cbc With Differential Ord2 Lymph ABS# 1.42 K/ul 04/27/2017 Cbc With Differential Ord2 [place] ABS# 0.7 K/ul 04/27/2017 Cbc With Differential Ord2 Eos ABS# 0.1 K/ul 04/27/2017 Cbc With Differential Ord2 Baso ABS# 0.0 K/ul 04/27/2017 %Hba1C Flt114 % HbA1c 51262-3 6.5 % 04/27/2017 %Hba1C Icc866 Gluc Ave 140 mg/dL 04/27/2017 Lipid Ord30 CHOL 134 mg/dL 04/27/2017 Lipid Ord30 HDL 44.0 mg/dl 04/27/2017 Lipid Ord30 TRIG 89 mg/dL 04/27/2017 Lipid Ord30 LDL 72 mg/dL 04/27/2017 Lipid Ord30 C/HDL 3.0 Ratio 04/27/2017 Comp Metabolic Flh502 NA 140 mEq/L 04/27/2017 Comp Metabolic Agz181 K 4.3 mEq/L 04/27/2017 Comp Metabolic Qks395 CL 105 mEq/L 04/27/2017 Comp Metabolic Pdf229 CO2 26.0 mEq/L 04/27/2017 Comp Metabolic Laz152 ANION GAP 13 04/27/2017 Comp Metabolic Ygs609 GLUCOSE 117 mg/dL 04/27/2017 Comp Metabolic Gfn866 Creat 1.6 mg/dL 04/27/2017 Comp Metabolic Zqg000 eGFR 45 ml/min/1.73m2 04/27/2017 Comp Metabolic Bfg995 BUN 27 mg/dL 04/27/2017 Comp Metabolic Cdq685 B/C Ratio 16.9 Ratio 04/27/2017 Comp Metabolic Sau425 CALCIUM 9.5 mg/dL 04/27/2017 Comp Metabolic Uky638 ALK PHOS 55 U/L 04/27/2017 Comp Metabolic Ume677 AST(SGOT) 20 U/L 04/27/2017 Comp Metabolic Zxe203 ALT(SGPT) 18 U/L 04/27/2017 Comp Metabolic Hvd461 BILI T 0.4 mg/dL 04/27/2017 Comp Metabolic Adf351 ALBUMIN 4.0 g/dL 04/27/2017 Comp Metabolic Fra786 TPRO 6.5 g/dL 04/27/2017 Comp Metabolic Cjx632 GLOB 2.5 g/dL 04/27/2017 Comp Metabolic Ltp679 A/G Ratio 1.6 Ratio 04/27/2017 Comp Metabolic Hwo694 Osmo 286 mOsmo 04/27/2017 Total Psa Ord10 PSA 7.87 ng/mL 04/27/2017 Comp Metabolic Fzp698 NA 136 mEq/L 12/29/2016 Comp Metabolic Rno860 K 4.5 mEq/L 12/29/2016 Comp Metabolic Fdr707 CL 103 mEq/L 12/29/2016 Comp Metabolic Nzr952 CO2 24.0 mEq/L 12/29/2016 Comp Metabolic Guf913 ANION GAP 14 12/29/2016 Comp Metabolic Thf370 GLUCOSE 164 mg/dL 12/29/2016 Comp Metabolic Uxx377 Creat 1.7 mg/dL 12/29/2016 Comp Metabolic Nbu564 eGFR 43 ml/min/1.73m2 12/29/2016 Comp Metabolic Avc468 BUN 22 mg/dL 12/29/2016 Comp Metabolic Nhm464 B/C Ratio 13.3 Ratio 12/29/2016 Comp Metabolic Bnn235 CALCIUM 9.5 mg/dL 12/29/2016 Comp Metabolic Vtn380 ALK PHOS 58 U/L 12/29/2016 Comp Metabolic Zgn331 AST(SGOT) 16 U/L 12/29/2016 Comp Metabolic Bba668 ALT(SGPT) 16 U/L 12/29/2016 Comp Metabolic Owl592 BILI T 0.9 mg/dL 12/29/2016 Comp Metabolic Xoe391 ALBUMIN 3.9 g/dL 12/29/2016 Comp Metabolic Rfc187 TPRO 6.4 g/dL 12/29/2016 Comp Metabolic Ljl597 GLOB 2.5 g/dL 12/29/2016 Comp Metabolic Djq984 A/G Ratio 1.5 Ratio 12/29/2016 Comp Metabolic Bzs174 Osmo 279 mOsmo 12/29/2016 Total Psa Ord10 PSA 8.44 ng/mL 11/09/2016 %Hba1C Bai259 % HbA1c 02509-8 6.4 % 11/09/2016 %Hba1C Duo784 Gluc Ave 137 mg/dL 11/09/2016 Cbc With [...] 25.0 % 11/09/2016 Cbc With Differential Ord2 [place]% 11.8 % 11/09/2016 Cbc With Differential Ord2 MCH 33.8 pg 11/09/2016 Cbc With Differential Ord2 MCHC 34.1 pg 11/09/2016 Cbc With Differential Ord2 Eos% 2.7 % 11/09/2016 Cbc With Differential Ord2 PLT 379 K/ul 11/09/2016 Cbc With Differential Ord2 Baso% 0.3 % 11/09/2016 Cbc With Differential Ord2 RDW 12.8 % 11/09/2016 Cbc With Differential Ord2 Neut ABS# 5.50 K/ul 11/09/2016 Cbc With Differential Ord2 Lymph ABS# 2.29 K/ul 11/09/2016 Cbc With Differential Ord2 [place] ABS# 1.1 K/ul 11/09/2016 Cbc With Differential Ord2 Eos ABS# 0.3 K/ul 11/09/2016 Cbc With Differential Ord2 Baso ABS# 0.0 K/ul 11/09/2016 Lipid Ord30 CHOL 152 mg/dL 11/09/2016 Lipid Ord30 HDL 46.0 mg/dl 11/09/2016 Lipid Ord30 TRIG 144 mg/dL 11/09/2016 Lipid Ord30 LDL 77 mg/dL 11/09/2016 Lipid Ord30 C/HDL 3.3 Ratio 11/09/2016 Comp Metabolic Dey512 NA 140 mEq/L 11/09/2016 Comp Metabolic Zfe632 K 4.9 mEq/L 11/09/2016 Comp Metabolic Mux665 CL 106 mEq/L 11/09/2016 Comp Metabolic Ner219 CO2 25.0 mEq/L 11/09/2016 Comp Metabolic Wct593 ANION GAP 14 11/09/2016 Comp Metabolic Rra904 GLUCOSE 127 mg/dL 11/09/2016 Comp Metabolic Glo723 Creat 1.7 mg/dL 11/09/2016 Comp Metabolic Ale844 eGFR 43 ml/min/1.73m2 11/09/2016 Comp Metabolic Nho238 BUN 21 mg/dL 11/09/2016 Comp Metabolic Pye447 B/C Ratio 12.7 Ratio 11/09/2016 Comp Metabolic Edq969 CALCIUM 9.5 mg/dL 11/09/2016 Comp Metabolic Xkf835 ALK PHOS 45 U/L 11/09/2016 Comp Metabolic Zuz345 AST(SGOT) 18 U/L 11/09/2016 Comp Metabolic Vyc996 ALT(SGPT) 16 U/L 11/09/2016 Comp Metabolic Waq489 BILI T 0.6 mg/dL 11/09/2016 Comp Metabolic Yni694 ALBUMIN 3.9 g/dL 11/09/2016 Comp Metabolic Ces315 TPRO 6.4 g/dL 11/09/2016 Comp Metabolic Njp544 GLOB 2.5 g/dL 11/09/2016 Comp Metabolic Trr235 A/G Ratio 1.5 Ratio 11/09/2016 Comp Metabolic Axz340 Osmo 284 mOsmo 11/09/2016 Tsh Ord6 hTSH [...] 15.6 g/dl 03/10/2016 Cbc With Differential Ord2 Neut% 72.9 % 03/10/2016 Cbc With Differential Ord2 HCT 46.2 % 03/10/2016 Cbc With Differential Ord2 Lymph% 15.1 % 03/10/2016 Cbc With Differential Ord2 MCV 97.5 fl 03/10/2016 Cbc With Differential Ord2 [place]% 10.6 % 03/10/2016 Cbc With Differential Ord2 MCH 32.9 pg 03/10/2016 Cbc With Differential Ord2 MCHC 33.8 pg 03/10/2016 Cbc With Differential Ord2 Eos% 1.2 % 03/10/2016 Cbc With Differential Ord2 Baso% 0.2 % 03/10/2016 Cbc With Differential Ord2 PLT 364 K/ul 03/10/2016 Cbc With Differential Ord2 RDW 12.8 % 03/10/2016 Cbc With Differential Ord2 Neut ABS# 7.16 K/ul 03/10/2016 Cbc With Differential Ord2 Lymph ABS# 1.48 K/ul 03/10/2016 Cbc With Differential Ord2 [place] ABS# 1.0 K/ul 03/10/2016 Cbc With Differential Ord2 Eos ABS# 0.1 K/ul 03/10/2016 Cbc With Differential Ord2 Baso ABS# 0.0 K/ul 03/10/2016 %Hba1C Tto314 % HbA1c 34437-2 6.6 % 03/10/2016 %Hba1C Llv779 Gluc Ave 143 mg/dL 03/10/2016 Comp Metabolic Biw455 NA 138 mEq/L 03/10/2016 Comp Metabolic Jxc140 K 4.9 mEq/L 03/10/2016 Comp Metabolic Jew815 CL 102 mEq/L 03/10/2016 Comp Metabolic Dtq929 CO2 28.0 mEq/L 03/10/2016 Comp Metabolic Nxv220 ANION GAP 13 03/10/2016 Comp Metabolic Wje439 GLUCOSE 135 mg/dL 03/10/2016 Comp Metabolic Cfv113 Creat 1.5 mg/dL 03/10/2016 Comp Metabolic Nkt032 eGFR 51 ml/min/1.73m2 03/10/2016 Comp Metabolic Kua676 BUN 28 mg/dL 03/10/2016 Comp Metabolic Str726 B/C Ratio 19.3 Ratio 03/10/2016 Comp Metabolic Xdp232 CALCIUM 9.8 mg/dL 03/10/2016 Comp Metabolic Ttk363 ALK PHOS 52 U/L 03/10/2016 Comp Metabolic Zej759 AST(SGOT) 19 U/L 03/10/2016 Comp Metabolic Nol513 ALT(SGPT) 22 U/L 03/10/2016 Comp Metabolic Rex977 BILI T 0.5 mg/dL 03/10/2016 Comp Metabolic Ess032 ALBUMIN 4.4 g/dL 03/10/2016 Comp Metabolic Euq050 TPRO 6.8 g/dL 03/10/2016 Comp Metabolic Cid419 GLOB 2.4 g/dL 03/10/2016 Comp Metabolic Ztk823 A/G Ratio 1.8 Ratio 03/10/2016 Comp Metabolic Qru879 Osmo 283 mOsmo 03/10/2016 Comp Metabolic Vuk397 NA 136 mEq/L 11/06/2015 Comp Metabolic Bzl779 K 4.0 mEq/L 11/06/2015 Comp Metabolic Mkd956 CL 102 mEq/L 11/06/2015 Comp Metabolic Urt760 CO2 27.0 mEq/L 11/06/2015 Comp Metabolic Zjm759 ANION GAP 11 11/06/2015 Comp Metabolic Egd927 GLUCOSE 144 mg/dL 11/06/2015 Comp Metabolic Tqi948 Creat 1.2 mg/dL 11/06/2015 Comp Metabolic Mhc698 eGFR 64 ml/min/1.73m2 11/06/2015 Comp Metabolic Pxn671 BUN 23 mg/dL 11/06/2015 Comp Metabolic Opu783 B/C Ratio 19.3 Ratio 11/06/2015 Comp Metabolic Jaa745 CALCIUM 10.2 mg/dL 11/06/2015 Comp Metabolic Krf148 ALK PHOS 52 U/L 11/06/2015 Comp Metabolic Bnw576 AST(SGOT) 16 U/L 11/06/2015 Comp Metabolic Ccn272 ALT(SGPT) 19 U/L 11/06/2015 Comp Metabolic Deg786 BILI T 0.7 mg/dL 11/06/2015 Comp Metabolic Bmr004 ALBUMIN 4.3 g/dL 11/06/2015 Comp Metabolic Zmb298 TPRO 6.8 g/dL 11/06/2015 Comp Metabolic Igc472 GLOB 2.5 g/dL 11/06/2015 Comp Metabolic Rij838 A/G Ratio 1.7 Ratio 11/06/2015 Comp Metabolic Jhk359 Osmo 278 mOsmo 11/06/2015 Lipid Ord30 CHOL 152 mg/dL 11/06/2015 Lipid Ord30 HDL 48.0 mg/dl 11/06/2015 Lipid Ord30 TRIG 79 mg/dL 11/06/2015 Lipid Ord30 LDL 88 mg/dL 11/06/2015 Lipid Ord30 C/HDL 3.2 Ratio 11/06/2015 %Hba1C Ahs708 % HbA1c 45992-1 7.3 % 11/06/2015 %Hba1C Qyt135 Gluc Ave 163 mg/dL 11/06/2015 Cbc With [...] 32.8 pg 06/05/2015 Cbc With Differential Ord2 [place]% 9.8 % 06/05/2015 Cbc With Differential Ord2 Eos% 1.0 % 06/05/2015 Cbc With Differential Ord2 MCHC 34.3 pg 06/05/2015 Cbc With Differential Ord2 Baso% 0.4 % 06/05/2015 Cbc With Differential Ord2 PLT 375 K/ul 06/05/2015 Cbc With Differential Ord2 RDW 12.9 % 06/05/2015 Cbc With Differential Ord2 Neut ABS# 5.99 K/ul 06/05/2015 Cbc With Differential Ord2 Lymph ABS# 1.97 K/ul 06/05/2015 Cbc With Differential Ord2 [place] ABS# 0.9 K/ul 06/05/2015 Cbc With Differential Ord2 Eos ABS# 0.1 K/ul 06/05/2015 Cbc With Differential Ord2 Baso ABS# 0.0 K/ul 06/05/2015 Cbc With Differential Ord2 New Analyzer Notice Please note new ref ranges starting 04-16-2015 due to implemntation of new five part differential hematolgy analyzer. 06/05/2015 %Hba1C Yra009 % HbA1c 15270-0 7.1 % 05/08/2015 %Hba1C Eph245 Gluc Ave 157 mg/dL 05/08/2015 Microalbumin Mph740 MicroAlb 1.2 mg/dL 05/01/2015 Cbc With Differential [...] 33.1 pg 04/30/2015 Cbc With Differential Ord2 [place]% 11.2 % 04/30/2015 Cbc With Differential Ord2 [...] 2.41 K/ul 04/30/2015 Cbc With Differential Ord2 [place] ABS# 0.9 K/ul 04/30/2015 Cbc With Differential [...] hTSH II 1.35 uIU/mL 04/30/2015 Comp Metabolic Snq061 NA 136 mEq/L 04/30/2015 Comp Metabolic Rqh032 K 4.5 mEq/L 04/30/2015 Comp Metabolic Bxp635 CL 100 mEq/L 04/30/2015 Comp Metabolic Tsc991 CO2 28.0 mEq/L 04/30/2015 Comp Metabolic Grg700 ANION GAP 13 04/30/2015 Comp Metabolic Dgi409 GLUCOSE 162 mg/dL 04/30/2015 Comp Metabolic Ksu946 Creat 1.2 mg/dL 04/30/2015 Comp Metabolic Exf247 eGFR 62 ml/min/1.73m2 04/30/2015 Comp Metabolic Ptj264 BUN 21 mg/dL 04/30/2015 Comp Metabolic Pjx673 B/C Ratio 17.4 Ratio 04/30/2015 Comp Metabolic Wbw936 CALCIUM 9.9 mg/dL 04/30/2015 Comp Metabolic Mnb762 ALK PHOS 51 U/L 04/30/2015 Comp Metabolic Izi141 AST(SGOT) 18 U/L 04/30/2015 Comp Metabolic Qel780 ALT(SGPT) 23 U/L 04/30/2015 Comp Metabolic Wlz062 BILI T 0.5 mg/dL 04/30/2015 Comp Metabolic Cxx883 ALBUMIN 4.2 g/dL 04/30/2015 Comp Metabolic Fch204 TPRO 6.9 g/dL 04/30/2015 Comp Metabolic Rnc696 GLOB 2.7 g/dL 04/30/2015 Comp Metabolic Ivi700 A/G Ratio 1.6 Ratio 04/30/2015 Comp Metabolic Ipt237 Osmo 278 mOsmo 04/30/2015 Metabolic Ord15 NA [...] Differential Ord2 RDW 13.6 % 01/28/2015 %Hba1C Qyd250 % HbA1c 89807-7 7.3 % 01/28/2015 %Hba1C Wdy983 Gluc Ave 163 mg/dL 01/28/2015 %Hba1C Wez242 % HbA1c 58658-9 7.8 % 10/24/2014 %Hba1C Vef061 Gluc Ave 177 mg/dL 10/24/2014 Cbc With [...] Ord2 RDW 13.7 % 10/23/2014 Comp Metabolic Mfz080 NA 135 mEq/L 10/23/2014 Comp Metabolic Uvj090 K 4.4 mEq/L 10/23/2014 Comp Metabolic Sjs745 CL 99 mEq/L 10/23/2014 Comp Metabolic Vmy281 CO2 31.0 mEq/L 10/23/2014 Comp Metabolic Zmp402 ANION GAP 9 10/23/2014 Comp Metabolic Hpx370 GLUCOSE 203 mg/dL 10/23/2014 Comp Metabolic Ihp910 Creat 1.1 mg/dL 10/23/2014 Comp Metabolic Yzu691 eGFR 72 ml/min/1.73m2 10/23/2014 Comp Metabolic Tka367 BUN 19 mg/dL 10/23/2014 Comp Metabolic Vdp679 B/C Ratio 17.8 Ratio 10/23/2014 Comp Metabolic Ejb949 CALCIUM 10.2 mg/dL 10/23/2014 Comp Metabolic Xms462 ALK PHOS 55 U/L 10/23/2014 Comp Metabolic Pfj152 AST(SGOT) 22 U/L 10/23/2014 Comp Metabolic Htk877 ALT(SGPT) 34 U/L 10/23/2014 Comp Metabolic Dpg875 BILI T 0.8 mg/dL 10/23/2014 Comp Metabolic Opr385 ALBUMIN 4.3 g/dL 10/23/2014 Comp Metabolic Zzz708 TPRO 6.7 g/dL 10/23/2014 Comp Metabolic Goi639 GLOB 2.4 g/dL 10/23/2014 Comp Metabolic Ztd270 A/G Ratio 1.8 Ratio 10/23/2014 Comp Metabolic Fcf420 Osmo 278 mOsmo 10/23/2014 Review of Systems [...] -4: G0439 03/12/2016 DESTRUCT PREMALG LESION CPT-4: 71692 10/23/2014 DESTRUCT PREMALG LES 2-14 CPT-4: 13632 10/23/2014 Vital Signs Date Vital 01/30/2018 Blood Pressure 1: 144/64 Code : 8480-6 Blood Pressure 2: 150/64 Code: 8480-6 BMI: 29.6 Code: 14492-0 Heart Rate 1: 61 bpm Height: 5'5" SpO2: 98% Weight: 178 lbs 09/07/2017 Blood Pressure 1: 148/68 Code : 8480-6 BMI: 29.6 Code : 87009-9 Heart Rate 1 : 60 bpm Height: 5'5" SpO2: 98% Weight: 178 lbs 05/05/2017 Blood Pressure 1: 122/64 Code : 8480-6 BMI: 28.3 Code : 78114-2 Heart Rate 1 : 56 bpm Height: 5'5" SpO2: 97% Weight: 170 lbs 2017 BMI: 29.1 Code: 72228-0 Height: 5'5" Weight: 175 lbs 03/15/2017 Blood Pressure 1: 136/76 Code : 8480-6 BMI: 29.1 Code : 79822-3 Heart Rate 1 : 82 bpm Height: 5'5" SpO2: 98% Weight: 175 lbs 03/03/2017 BMI: 29.1 Code: 03751-5 Height: 5'5" Weight: 175 lbs 02/02/2017 Blood Pressure 1: 132/60 Code : 8480-6 BMI: 28.6 Code : 19845-5 Heart Rate 1 : 64 bpm Height: 5'5" SpO2: 99% Weight: 172 lbs 01/04/2017 Blood Pressure 1: 138/70 Code : 8480-6 BMI: 29.6 Code : 23349-1 Heart Rate 1 : 59 bpm Height: 5'5" SpO2: 99% Weight: 178 lbs 11/16/2016 Blood Pressure 1: 150/70 Code : 8480-6 BMI: 30.6 Code : 60291-5 Heart Rate 1 : 68 bpm Height: 5'5" SpO2: 94% Weight: 184 lbs 07/19/2016 Blood Pressure 1: 150/70 Code : 8480-6 Blood Pressure 2: 154/70 Code: 8480-6 BMI: 31.0 Code: 49801-0 Heart Rate 1: 61 bpm Height: 5'5" SpO2: 98% Weight: 186 lbs 03/12/2016 Blood Pressure 1: 156/80 Code : 8480-6 BMI: 30.5 Code : 28788-1 Heart Rate 1 : 60 bpm Height: 5'5" SpO2: 98% Waist Measure (cm): 91 cm Weight: 183 lbs 03/10/2016 Blood Pressure 1: 158/78 Code : 8480-6 Blood Pressure 1: 158/78 Code: 8480-6 BMI: 30.5 Code: 61003-9 Heart Rate 1: 61 bpm Height: 5'5" SpO2: 98% Weight: 183 lbs 11/06/2015 Blood Pressure 1: 156/80 Code : 8480-6 Blood Pressure 1: 138/70 Code: 8480-6 BMI: 30.1 Code: 57847-4 Heart Rate 1: 64 bpm Height: 5'5" SpO2: 98% Weight: 181 lbs 09/09/2015 Blood Pressure 1: 126/68 Code : 8480-6 08/26/2015 Blood Pressure 1: 168/74 Code : 8480-6 Blood Pressure 1: 162/76 Code: 8480-6 BMI: 29.8 Code: 86946-8 Heart Rate 1: 61 bpm Height: 5'5" SpO2: 98% Weight: 179 lbs 07/29/2015 Blood Pressure 1: 166/76 Code : 8480-6 BMI: 30.0 Code : 82337-9 Heart Rate 1 : 75 bpm Height: 5'5" SpO2: 99% Weight: 180 lbs 04/29/2015 Blood Pressure 1: 130/70 Code : 8480-6 Blood Pressure 1: 132/76 Code: 8480-6 BMI: 30.8 Code: 46178-5 Heart Rate 1: 64 bpm Height: 5'5" SpO2: 99% Weight: 185 lbs 10/23/2014 Blood Pressure 1: 140/76 Code : 8480-6 BMI: 30.5 Code : 75027-8 Heart Rate 1 : 63 bpm Height: [...] data Encounters Encounter Performer Location Codes Date ([id number]) 91633 EST. PATIENT, LEVEL IV Diagnosis: Type 2 diabetes mellitus with hyperglycemia[ICD10: E11.65] Diagnosis: Chronic kidney disease, stage 3 (moderate)[ICD10: N18.3] Diagnosis: Essential (primary) hypertension[ICD10: I10] Virginie Isaac MD, [facility] CPT-4: 49594 01/30/2018 ([id number]) 00269 EST. PATIENT, LEVEL IV Diagnosis: Essential (primary) hypertension[ICD10: I10] Diagnosis: Type 2 diabetes mellitus without complications[ICD10: E11.9] Diagnosis: Malignant neoplasm of prostate[ICD10: C61] Diagnosis: Chronic kidney disease, stage 3 (moderate)[ICD10: N18.3] Virginie Iasac MD [facility] CPT-4: 50917 09/07/2017 ([id number]) 23857 EST. PATIENT, LEVEL IV Diagnosis: Type 2 diabetes mellitus without complications[ICD10: E11.9] Diagnosis: Essential (primary) hypertension[ICD10: I10] Diagnosis: Changes in skin texture[ICD10: R23.4] Diagnosis: Chronic kidney disease, stage 3 (moderate)[ICD10: N18.3] Virginie Isaac MD [facility] CPT-4: 28803 05/05/2017 ([id number]) Miscellaneous no charge Diagnosis: Abnormal weight loss[ICD10: R63.4] Virginie Isaac MD [facility] CPT-4: 00262 2017 ([id number]) Miscellaneous no charge Diagnosis: Abnormal weight loss[ICD10: R63.4] Virginie Isaac MD [facility] CPT-4: 84985 03/03/2017 ([id number]) 26787 EST. PATIENT, LEVEL III Diagnosis: Type 2 diabetes mellitus with hyperglycemia[ICD10: E11.65] Diagnosis: Essential (primary) hypertension[ICD10: I10] Virginie Isaac MD [facility] CPT-4: 68007 02/02/2017 ([id number]) 34938 EST. PATIENT, LEVEL IV Diagnosis: Type 2 diabetes mellitus with hyperglycemia[ICD10: E11.65] Diagnosis: Essential (primary) hypertension[ICD10: I10] Diagnosis: Chronic kidney disease, stage 3 (moderate)[ICD10: N18.3] Virginie Isaac MD [facility] CPT-4: 83700 01/04/2017 ([id number] 92999 EST. PATIENT, LEVEL IV Diagnosis: Type 2 diabetes mellitus with hyperglycemia[ICD10: E11.65] Diagnosis: Essential (primary) hypertension[ICD10: I10] Diagnosis: Chronic kidney disease, stage 3 (moderate)[ICD10: N18.3] Diagnosis: Elevated prostate specific antigen [PSA][ICD10: R97.20] Virginie Isaac MD [facility] CPT-4: 72537 11/16/2016 ([id number]) 80967 EST. PATIENT, LEVEL IV Diagnosis: Essential (primary) hypertension[ICD10: I10] Diagnosis: Type 2 diabetes mellitus with hyperglycemia[ICD10: E11.65] Diagnosis: Mixed hyperlipidemia[ICD10: E78.2] Virginie Isaac MD [facility] CPT-4: 87168 07/19/2016 ([id number]) 30276 EST. PATIENT, LEVEL IV Diagnosis: Type 2 diabetes mellitus with hyperglycemia[ICD10: E11.65] Diagnosis: Essential (primary) hypertension[ICD10: I10] Diagnosis: Mixed hyperlipidemia[ICD10: E78.2] Virginie Isaac MD [facility] CPT-4: 06167 03/10/2016 ([id number]) 27919 EST. PATIENT, LEVEL III Diagnosis: Essential (primary) hypertension[ICD10: I10] Diagnosis: Type 2 diabetes mellitus with hyperglycemia[ICD10: E11.65] Diagnosis: Hyperlipidemia, unspecified[ICD10: E78.5] Virginie Isaac MD [facility] CPT-4: 70183 11/06/2015 ([id number]) Miscellaneous no charge Diagnosis: Essential (primary) hypertension[ICD10: I10] Scarlett Isaac MD [facility] CPT-4: 15730 09/09/2015 ([id number]) 95454 EST. PATIENT, LEVEL III Diagnosis: Essential (primary) hypertension[ICD10: I10] Diagnosis: Other skin changes[ICD10: R23.8] Virginie Isaac MD [facility] CPT-4: 27090 08/26/2015 ([id number]) 83324 EST. PATIENT, LEVEL IV Diagnosis: Essential (primary) hypertension[ICD10: I10] Diagnosis: Unspecified amblyopia, right eye[ICD10: H53.001] Diagnosis: Other skin changes[ICD10: R23.8] Virginie Isaac MD [facility] CPT-4: 00331 07/29/2015 ([id number]) 48653 EST. PATIENT, LEVEL IV Diagnosis: Type 2 diabetes mellitus with hyperglycemia[ICD10: E11.65] Diagnosis: Essential (primary) hypertension[ICD10: I10] Diagnosis: Hyperlipidemia, unspecified[ICD10: E78.5] [facility] CPT-4: 48771 04/29/2015 ([id number]) OFFICE VISIT, NEW - LEVEL 4 Diagnosis: ESSENTIAL HYPERTENSION[ICD9: 401.9] Diagnosis: DIABETES TYPE II[ICD9: 250.00] Diagnosis: ACTINIC KERATOSIS[ICD9: 702.0] Diagnosis: Impacted cerumen[ICD9: 380.4] [facility] CPT- 4: 30715 10/23/2014 Plan of Care Planned Activity Notes Codes Status Date Visit Plan: Diabetes Mellitus - controlled - [...] recommended that he needs to see a Cigar Tobacco Rehandler, but Suleman is not interested at this time. He has agreed to have repeat bmp in one month off of the hctz and to start on renal diet. Prostate cancer - continue with plans to be seen by Dr. Modi at the cancer center. 01/30/2018 Appointment: [facility]el[phone] (15 min) Moderate 01/30/2018 Patient Education: Patient Medication Summary Completed 01/30/2018 Appointment: Virginie Isaac WPtel: [phone] [facility] (15 min) Moderate 01/10/2018 Visit Plan: Diabetes [...] pt is not interested in seeing a Cigar Tobacco Rehandler as has been recommended to patient. 09/07/2017 Appointment: Virginie Isaac WPtel: [phone] [facility] (15 min) Moderate 09/07/2017 Patient Education: Patient [...] pt is not interested in seeing a Cigar Tobacco Rehandler as has been recommended to patient. Elevated PSA -pt seeing Dr. Harrison. 05/05/2017 Appointment: Virginie Isaactel: [phone] [facility] (15 min) Moderate 05/05/2017 Patient Education: Patient Medication Summary Completed 05/05/2017 [phone] ([facility] min) Moderate 04/14/2017 Appointment: Nurse [...] surrogate. 03/15/2017 App[facility]ment: [phone] [facility] - Annual Wellness Visit 03/15/2017 Patient Education: [...] at home. 02/02/2017 Appointment: Virginie Isaac WPtel: [facility] (15 min) Moderate 02/02/2017 Patient Education: Patient [...] Hypertension Completed 01/04/2017 Appointment: Virginie Isaac WPtel: [facility] (15 min) Moderate 12/23/2016 Appointment: Virginie Isaac WPtel: [facility] (15 min) Moderate 12/22/2016 Visit Plan: Hypertension [...] orange juice. 11/16/2016 Appointment: Virginie Isaac WPtel: [phone] [facility] (15 min) Moderate 11/16/2016 Patient Education: Patient [...] to medications. 07/19/2016 Appointment: Virginie Isaac WPtel: [phone] [facility] [place] (15 min) Moderate 07/19/2016 Patient Education: Patient Medication Summary Completed 07/19/2016 Patient Education: Obesity Completed 07/19/2016 Patient Education: Hypertension Completed 07/19/2016 Appointment: Virginie Isaac WPtel: [phone] [facility] [place] (15 min) Moderate 07/06/2016 Visit Plan: Medicare [...] surrogate. 03/12/2016 Appointment: Niecy Sullivan WPtel: [phone] [phone] - Annual Wellness Visit 03/12/2016 Patient Education: [...] hs 03/10/2016 Appointment: Virginie Isaac WPtel: [phone] [facility] (15 min) Moderate 03/10/2016 Patient Education: Patient [...] Obesity Completed 11/06/2015 Appointment: Niecy Sullivan WPtel: [address] [place], [place] [phone] (30 min) Complex 10/27/2015 Appointment: Nurse Visit [...] have repeat treatment - one on left islam and one on posterior scalp. 08/26/2015 Patient Education: Patient Medication Summary Completed 08/26/2015 Patient Education: Hypertension Completed 08/26/2015 Referral: Tariq Ramirez WPtel: [address] [place], [place] [address] Referral Completed 08/05/2015 Visit Plan: Hypertension - [...] of efudex. 07/29/2015 Appointment: Virginie Isaac WPtel: [phone] [facility] (15 min) Moderate 07/29/2015 Patient Education: Patient Medication Summary Completed 07/29/2015 Patient Education: Obesity Completed 07/29/2015 Patient Education: Hypertension Completed 07/29/2015 Care Plan: Referral Order SNOMED-CT : [id number] Pending 07/29/2015 Patient Education: Patient Medication Summary [...] Care Plan: COMPLETE CBC AUTOMATED LOINC : 30067-9 Ordered 04/29/2015 Care Plan: MICROALBUMIN QUANTITATIVE LOINC : 46916-9 Ordered 04/29/2015 Appointment: (15 min) Moderate 03/31/2015 Appointment: Virginie Isaac WPtel: [phone] [facility] (15 min) Moderate 01/22/2015 Visit Plan: Hypertension [...] office visit. 10/23/2014 Appointment: Virginie Isaac WPtel: [address] [place], [place] [address] [place] ([place]) New Patient 10/23/2014 Patient Education: Patient Medication Summary Completed 10/23/2014 Patient Education: Hypertension Completed 10/23/2014 Referral: Tariq Ramirez WPtel: [address] [place], [place] [address] Referral Appointment Requested Instructions Comment . Diabetes [...] recommended that he needs to see a Cigar Tobacco Rehandler, but Suleman is not interested at this [...] pt is not interested in seeing a Cigar Tobacco Rehandler as has been recommended to patient. use [...] have repeat treatment - one on left islam and one on posterior scalp. . Medicare [...] pt is not interested in seeing a Cigar Tobacco Rehandler as has been recommended to patient. Elevated [...]
[2018-03-14] MEDS ORDERED: cefTRIAXone FOR IV USE 1,000 MG in NS (IVPB) 50 ML IV ONE (06:15)
--- OUTSIDE RECORDS SUMMARY | 2018-03-14 06:16 | XMS REPORT | Continuity of Care Document ---
Author Author [facility] Organization [facility] Address Unknown Phone Unavailable Allergies Active Description Code Type Severity Reaction Onset Reported/Identified Relationship to Patient Clinical Status Yes No Known Drug Allergies [id number] Drug Allergy Unknown N/A 03/09/2018 Medications There is no data. Problems Date [...] TYPE 2 DIABETES MELLITUS WITH HYPERGLYCE 05/09/2017 RADNI VIGIL MD Ot E66.9 OBESITY, UNSPECIFIED 05/09/2017 [...] TYPE 2 DIABETES MELLITUS WITH HYPERGLYCE 05/10/2017 RADNI VIGIL MD Ot E66.9 OBESITY, UNSPECIFIED 05/10/2017 RANDI VIGIL MD Ot I10 ESSENTIAL (PRIMARY) HYPERTENSION 05/10/2017 ASCHI KNIGHT DO Ot C44.629 SQUAMOUS CELL CARCINOMA SKIN/ LEFT UPPER 05/10/2017 SACHI KNIGHT DO D Ot E11.9 TYPE 2 DIABETES MELLITUS WITHOUT COMPLIC 05/10/2017 SACHI KNIGHT DO Ot I10 ESSENTIAL (PRIMARY) HYPERTENSION 05/10/2017 SACHI KNIGHT DO D Ot 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 05/10/2017 SACHI KNIGHT DO Ot Z79.899 OTHER ASSISTED (CURRENT) DRUG THERAPY 05/14/2017 SACHI KNIGHT DO D Ot C44.629 SQUAMOUS CELL CARCINOMA SKIN/ LEFT UPPER 05/14/2017 SACHI KNIGHT DO D Ot E11.9 TYPE 2 DIABETES MELLITUS WITHOUT COMPLIC 05/14/2017 GRACE KNIGHT DOTT D Ot I10 ESSENTIAL (PRIMARY) HYPERTENSION 05/14/2017 SACHI KNIGHT DO D Ot 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 05/14/2017 SACHI KNIGHT DO Ot Z79.899 OTHER ASSISTED (CURRENT) DRUG THERAPY 05/15/2017 SACHI KNIGHT DO [...] 05/21/2017 SACHI KNIGHT DO Ot Z79.899 OTHER STAFFING DIRECTOR (CURRENT) DRUG THERAPY 07/21/2017 JAZMINE AVILEZ MD [...] Z01.818 ENCOUNTER FOR OTHER PREPROCEDURAL EXAMIN 07/28/2017 RAGHAV SHEEHAN, JAZMINE Moreland Ot N40.0 BENIGN PROSTATIC HYPERPLASIA WITHOUT LOW 07/28/2017 RAGHAV SHEEHAN, JAZMINE Moreland Ot R97.20 ELEVATED PROSTATE SPECIFIC ANTIGEN [PSA] 07/28/2017 RAGHAV SHEEHAN, JAZMINE Moreland Ot Z01.818 ENCOUNTER FOR OTHER PREPROCEDURAL EXAMIN 07/29/2017 RAGHAV SHEEHAN, JAZMINE Moreland Ot N40.0 BENIGN PROSTATIC HYPERPLASIA WITHOUT LOW 07/29/2017 RAGHAV SHEEHAN, JAZMINE Moreland Ot R97.20 ELEVATED PROSTATE SPECIFIC ANTIGEN [PSA] 07/29/2017 RAGHAV SHEEHAN, JAZMINE Moreland Ot Z01.818 ENCOUNTER FOR OTHER PREPROCEDURAL EXAMIN 08/03/2017 JAZMINE AVILEZ MD Ot C61 MALIGNANT NEOPLASM OF PROSTATE 08/03/2017 JAZMINE AVILEZ MD Ot E11.9 TYPE 2 DIABETES MELLITUS WITHOUT COMPLIC 08/03/2017 JAZMINE AVILEZ MD Ot E78.5 HYPERLIPIDEMIA, UNSPECIFIED 08/03/2017 JAZMINE AVILEZ MD Ot I10 ESSENTIAL (PRIMARY) HYPERTENSION 08/03/2017 JAZMINE AVILEZ MD Ot N40.0 BENIGN PROSTATIC HYPERPLASIA WITHOUT LOW 08/03/2017 JAZMINE AVILEZ MD Ot R97.20 ELEVATED PROSTATE SPECIFIC ANTIGEN [PSA] 08/03/2017 JAZMINE AVILEZ MD Ot Z11.2 ENCOUNTER FOR SCREENING FOR OTHER BACTER 08/03/2017 JAZMINE AVILEZ MD Ot Z79.84 ASSISTED (CURRENT) USE OF ORAL HYPOGLYC 08/10/2017 JAZMINE AVILEZ MD Ot C61 MALIGNANT NEOPLASM OF PROSTATE 08/10/2017 JAZMINE AVILEZ MD Ot E11.9 TYPE 2 DIABETES MELLITUS WITHOUT COMPLIC 08/10/2017 JAZMINE AVILEZ MD Ot E78.5 HYPERLIPIDEMIA, UNSPECIFIED 08/10/2017 JAZMINE AVILEZ MD Ot I10 ESSENTIAL (PRIMARY) HYPERTENSION 08/10/2017 JAZMINE AVILEZ MD Ot N40.0 BENIGN PROSTATIC HYPERPLASIA WITHOUT LOW 08/10/2017 JAZMINE AVILEZ MD Ot R97.20 ELEVATED PROSTATE SPECIFIC ANTIGEN [PSA] 08/10/2017 JAZMINE AVILEZ MD Ot Z11.2 ENCOUNTER FOR SCREENING FOR OTHER BACTER 08/10/2017 JAZMINE AVILEZ MD Ot Z79.84 ASSISTED (CURRENT) USE OF ORAL HYPOGLYC 08/15/2017 JAZMINE AVILEZ MD, Ot 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 LG INT W/O PERFORATION OR AB 08/15/2017 JAZMINE AVILEZ MD Ot N20.0 CALCULUS OF KIDNEY 08/15/2017 JAZMINE AVILEZ MD Ot R91.8 OTHER NONSPECIFIC ABNORMAL FINDING OF CHERYL 08/15/2017 JAZMINE AVILEZ MD, Ot Z85.46 PERSONAL HISTORY OF MALIGNANT NEOPLASM O 08/18/2017 JAZMINE AVILEZ MD Ot 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 LG INT W/O PERFORATION OR AB 08/18/2017 JAZMINE AVILEZ MD Ot N20.0 CALCULUS OF KIDNEY 08/18/2017 JAZMINE AVILEZ MD Ot R91.8 OTHER NONSPECIFIC ABNORMAL FINDING OF CHERYL 08/18/2017 JAZMINE AVILEZ MD Ot Z85.46 PERSONAL HISTORY OF MALIGNANT NEOPLASM O 09/01/2017 JAZMINE AVILEZ MD Ot 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 LG INT W/O PERFORATION OR AB 09/01/2017 JAZMINE AVILEZ MD Ot N20.0 CALCULUS OF KIDNEY 09/01/2017 JAZMINE AVILEZ MD Ot R91.8 OTHER NONSPECIFIC ABNORMAL FINDING OF CHERYL 09/01/2017 JAZMINE AVILEZ MD Ot Z85.46 PERSONAL HISTORY OF MALIGNANT NEOPLASM O 09/22/2017 JAZMINE AVILEZ MD, Ot 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 LG INT W/O PERFORATION OR AB 09/22/2017 JAZMINE AVILEZ MD Ot N20.0 CALCULUS OF KIDNEY 09/22/2017 JAZMINE AVILEZ MD Ot R91.8 OTHER NONSPECIFIC ABNORMAL FINDING OF CHERYL 09/22/2017 JAZMINE AVILEZ MD Ot Z85.46 PERSONAL HISTORY OF MALIGNANT NEOPLASM O 02/07/2018 JAZMINE AVILEZ MD Ot 562.10 DIVERTICULOSIS COLON (W/O MENT OF HEMORR 02/07/2018 JAZMINE AVILEZ MD Ot 599.70 HEMATURIA, UNSPECIFIED 02/07/2018 RANDI VIGIL MD, Ot E11.65 TYPE 2 DIABETES MELLITUS WITH HYPERGLYCE 02/07/2018 RANDI VIGIL MD, Ot E66.9 OBESITY, UNSPECIFIED 02/07/2018 RANDI VIGIL MD, Ot I10 ESSENTIAL (PRIMARY) HYPERTENSION 02/07/2018 JAZMINE AVILEZ MD, Ot 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 LG INT W/O PERFORATION OR AB 02/07/2018 JAZMINE AVILEZ MD, Ot N20.0 CALCULUS OF KIDNEY 02/07/2018 JAZMINE AVILEZ MD Ot R91.8 OTHER NONSPECIFIC ABNORMAL FINDING OF CHERYL 02/07/2018 JAZMINE AVILEZ MD, Ot Z85.46 PERSONAL HISTORY OF MALIGNANT NEOPLASM O 03/09/2018 RANDI VIGIL MD, Ot E11.65 TYPE 2 DIABETES MELLITUS WITH HYPERGLYCE 03/09/2018 RANDI VIGIL MD, Ot E66.9 OBESITY, UNSPECIFIED 03/09/2018 RANDI VIGIL MD, Ot I10 ESSENTIAL (PRIMARY) HYPERTENSION 03/09/2018 JAZMINE AVILEZ MD Ot Z01.818 ENCOUNTER FOR OTHER PREPROCEDURAL EXAMIN 03/10/2018 JAZMINE AVILEZ MD, Ot Z01.818 ENCOUNTER FOR OTHER PREPROCEDURAL EXAMIN Procedures There is no data. Results Test Result Range Capillary blood glucose measurement by glucometer (mass/volume) - 05/10/17 13: 24 Capillary blood glucose measurement by glucometer (mass/volume) 125 mg/dL 70-110 Methicillin resistant Staphylococcus aureus (MRSA) screening culture - 13:25 Methicillin resistant Staphylococcus aureus (MRSA) screening culture NEG NRG Methicillin resistant Staphylococcus aureus (MRSA) screening culture - 06:30 Methicillin resistant Staphylococcus aureus (MRSA) screening culture NEG NRG Capillary blood glucose measurement by glucometer (mass/volume) - 08/03/17 06: 49 Capillary blood glucose measurement by glucometer (mass/volume) 101 mg/dL 70-110 [id number] - 08/12/17 11:03 Serum or plasma urea nitrogen measurement (mass/volume) 25 mg/dL 7-18 Serum or plasma creatinine measurement (mass/volume) 1.91 mg/dL 0.60-1.30 Serum or plasma urea nitrogen/creatinine mass ratio 13 NRG Serum or plasma creatinine measurement with calculation of estimated glomerular filtration rate 35 NRG Encounters ACCT No. Visit Date/Time Discharge Status Pt. Type Provider Facility Loc./Unit Complaint [id number] 03/09/2018 05:59:00 03/09/2018 13:00:00 DIS Outpatient JAZMINE AVILEZ MD [facility] PREOP PROSTATE CANCER [id number] 02/07/2018 13:35:00 02/07/2018 23:59:59 CLS Outpatient GREGORY BECERRA MD [facility] ONC [id number] 08/12/2017 10:41:00 08/12/2017 23:59:59 CLS Outpatient JAZMINE AVILEZ MD [facility] RAD CA OF PROSTATE [id number] 08/08/2017 10:58:00 08/08/2017 23:59:59 CLS Preadmit JAZMINE AVILEZ MD [facility] RAD CA OF PROSTATE [id number] 08/03/2017 06:00:00 08/03/2017 09:25:00 DIS Outpatient JAZMINE AVILEZ MD [facility] BPH, ELEVATED PSA [id number] 07/28/2017 12:50:00 07/28/2017 13:04:00 DIS Outpatient JAZMINE AVILEZ MD [facility] PREOP CYSTO, PROSTATE BIOPSY [id number] 05/10/2017 13:05:00 05/10/2017 16:25:00 DIS Outpatient SACHI KNIGHT DO [facility] SKIN LESION LEFT ARM X2 [id number] 05/09/2017 05:50:00 05/09/2017 10:56:00 DIS Outpatient SACHI KNIGHT DO [facility] PREOP SKIN LESION LEFT ARM X2 [id number] 04/25/2017 15:00:00 04/25/2017 23:59:59 CLS Preadmit RANDI VIGIL MD [facility] TYPE 2 DIABETES [id number] 01/24/2017 14:42:00 04/24/2017 00:01:00 DIS [facility] [id number] 02/06/2013 14:55:00 02/06/2013 23:59:59 CLS Outpatient JAZMINE AVILEZ MD [facility] RAD HEMATURIA [id number] 03/14/2018 05:58:00 ACT Outpatient JAZMINE AVILEZ MD [facility] PROSTATE CANCER [id number] 02/02/2017 14:53:08 02/02/2017 23:59:59 CLS Outpatient
[2018-03-14 06:20] VITALS: BP 176/75
[2018-03-14] MEDS ORDERED: proPOfol 200 MG/20 ML (DIPRIVAN) VIAL IV ONE (07:01)
[2018-03-14] MEDS ORDERED: LIDOCAINE PF 2% 5 ML (XYLOCAINE) VIAL ONE (07:01)
[2018-03-14] MEDS ORDERED: ONDANSETRON 4 MG/2 ML (SDV) Z0FRAN ONE (07:01)
[2018-03-14] MEDS ORDERED: fentaNYL INJECTION 100 MCG/2 ML AMP ONE (07:02)
[2018-03-14] MEDS ORDERED: MIDAZOLAM 2 MG/2 ML (VERSED) VIAL ONE (07:02)
[2018-03-14] MEDS ORDERED: SEVOFLURANE (ULTANE) 15 ML INHAL SOLN ONE ×3 (07:06→08:42)
--- NOTE | 2018-03-14 07:17 | Progress Note-Pre Operative ---
Pre-Operative Progress Note H&P Reviewed The H&P was reviewed, patient examined and no changes noted. Date Seen by Provider: Mar 14, 2018 Time Seen by Provider: 07:16 Date H&P Reviewed: Mar 14, 2018 Time H&P Reviewed: 07:17 Pre-Operative Diagnosis: CA PROSTATE JAZMINE AVILEZ MD Mar 14, 2018 07:17
[2018-03-14] MEDS ORDERED: ESMOLOL 100 MG/10 ML (BREVIBLOC) VIAL ONE (07:49)
[2018-03-14] MEDS ORDERED: MEPERIDINE (DEMEROL) INJ 50 MG/ML IVP ONE (08:45)
[2018-03-14] MEDS ORDERED: morphine INJ 10 MG/ML 1ML (SYR OR VIAL) IVP ONE (08:45)
[2018-03-14] MEDS ORDERED: ONDANSETRON 4 MG/2 ML (SDV) Z0FRAN IVP PRN (08:45)
--- NOTE | 2018-03-14 08:49 | Progress Note-Post Operative ---
Post-Operative Progess Note Surgeon (s)/Bending Machine Set Up Operator (s) Surgeon JAZMINE AVILEZ MD Bending Machine Set Up Operator: NONE Pre-Operative Diagnosis CA PROSTATE Post-Operative Diagnosis SAME Procedure & Operative Findings Date of Procedure 03/14/18 Procedure Performed/Findings PLACEMENT OF GOLD FUDICIAL MARKERS AND SPACE OAR Anesthesia Type GENERAL Estimated Blood Loss Estimated blood loss (mL): NEGLIGIBLE Specimens/Packing Specimens Removed NONE Packing: NONE JAZMINE AVILEZ MD Mar 14, 2018 08:48
--- NOTE | 2018-03-14 08:51 | Discharge Inst-Urology ---
Discharge Inst-Urology Discharge Medications New, Converted, or Re-newed RX: RX on Chart Patient Instructions/Follow Up Plan Please make appointment to been seen in office in 3 months. Increase oral fluids for 48 hours and then as needed. Diet as tolerated Rest for 48 hours If questions or concerns contact your physician Or seek help at emergency department. JAZMINE AVILEZ MD Mar 14, 2018 08:50
[2018-03-14 09:15] VITALS: BP 143/77
[2018-03-14] MEDS ORDERED: PHEN-640 PO (09:34)
[2018-03-14] MEDS ORDERED: HYDR-3870 PO (09:34)
[2018-03-14] MEDS ORDERED: CIPR-225 PO (09:34)
[2018-03-14 09:45] VITALS: BP 139/66
[2018-03-14 10:15] VITALS: BP 163/69
--- NOTE | 2018-03-14 10:16 | Anesthesia-General Post-Op ---
General Patient Condition Mental Status/LOC: Same as Preop Cardiovascular: Satisfactory Nausea/Vomiting: Absent Respiratory: Satisfactory Pain: Controlled Complications: Absent Post Op Complications Complications None Follow Up Care/Instructions Patient Instructions None needed. Anesthesia/Patient Condition Patient Condition Patient is doing well, no complaints, stable vital signs, no apparent adverse anesthesia problems. No complications reported per nursing. D/C home per [facility] Criteria: Yes DAVID SNOW CRNA Mar 14, 2018 10:16
== END 2018-03-14 10:25 | disposition home or self-care (01) ==
LOC: SDC 05:58
PROVIDERS: ATTEND Urology
DX: C61 Malignant neoplasm of prostate (principal); I10 Essential (primary) hypertension; E11.9 Type 2 diabetes mellitus without complications; Z79.84 Long term (current) use of oral hypoglycemic drugs; Z79.899 Other long term (current) drug therapy
CPT/HCPCS: 77332; 87081

== ENCOUNTER 2018-05-02 06:25 | Outpatient (CLI) | payer MEDICARE ==
[~2018-05-02] VITALS: Ht 165.1 cm; Wt 78.5 kg
[~2018-05-02 06:25] MED LIST changes: +CIPR-225 PO; +HYDR-3870 PO; +LOSA100T57 PO; -LOSA100T8 PO; +PHEN-640 PO
[2018-05-02] MEDS ORDERED: BISO5TAB PO (15:23)
== END 2018-05-02 15:24 | disposition home or self-care (01) ==
LOC: PREOP 06:25
PROVIDERS: ATTEND Specialist
DX: Z01.818 Encounter for other preprocedural examination (principal)

== ENCOUNTER 2018-05-05 10:36 | Day surgery (SDC) | payer MEDICARE ==
[~2018-05-05] VITALS: Ht 165.1 cm; Wt 78.5 kg
[~2018-05-05 10:36] MED LIST changes: +BISO5TAB PO
[2018-05-05 10:40] VITALS: BP 135/96
--- OUTSIDE RECORDS SUMMARY | 2018-05-05 10:42 | XMS REPORT | CCD ---
Author Author Virginie Isaac Organization Virginie Isaac MD, [facility] Address [facility] [place] [address] Phone Care Team Providers Care Copy Preparer Name Role Phone PP Unavailable CCM Unavailable Summary Purpose Interface Exchange Insurance Providers Payer name Policy type / Coverage type Covered constitution party ID Effective Begin Date Effective End Date WPS Medicare Part B Medicare Part B [id number] 2018 Unknown [facility] Medicare Part B No Plan Member [...] self employed 10/23/[address]: 922375949 Never smoker 10/23/[address]: 499412858 Never drinks alcohol 10/23/2014 Allergies, Adverse Reactions, Alerts Substance Reaction Codes Entered Date Inactivated Date Status * NO KNOWN DRUG ALLERGIES Unknown 10/23/2014 No Inactive Date Active Past Medical History Illness Codes Condition Status Onset Date Resolved Date Encounter for general adult medical examination with abnormal findings ICD-9: V70.0 ICD-10: Z00.01 Active 03/15/2017 Unknown Actinic keratosis ICD- 9: 702.0 ICD-10: L57.0 Active 03/07/2018 Unknown Chronic kidney disease, stage 3 (moderate) ICD-9: [...] ICD-9: 783.21 ICD-10: R63.4 Active 03/03/2017 Unknown Essential (primary) hypertension ICD-9: 401.9 ICD-10: [...] Problems Condition Codes Effective Dates Condition Status Encounter for general adult medical examination with abnormal findings ICD-9: V70.0 ICD-10: Z00.01 03/15/2017 Active Actinic keratosis ICD- 9: 702.0 ICD-10: L57.0 03/07/2018 Active Chronic kidney disease, stage 3 (moderate) ICD-9: [...] loss ICD-9: 783.21 ICD-10: R63.4 03/03/2017 Active Essential (primary) hypertension ICD-9: 401.9 ICD-10: [...] Fill Instructions simvastatin 20 mg tablet RxNorm: 448790 TAKE ONE TABLET BY MOUTH DAILY 03/06/2018 11/30/2018 Active Generic For:ZOCOR 20MG 03/06/2018 9:01:27 AM Truetest Test Strips RxNorm: TEST BLOOD SUGAR EVERY DAY 201711/26/2018 Active 01/30/2018 3:29:14 PM bisoprolol fumarate 5 mg tablet RxNorm: 711167 1 Tablet(s) PO BID 01/30/2018 08/27/2018 Active this replaces his combination pill glimepiride 2 mg tablet RxNorm: 597875 TAKE 1/2 (ONE- HALF) TABLET BY MOUTH TWICE DAILY 12/06/2017 06/03/2018 Active Generic For:AMARYL 2MG 12/06/2017 9:07:06 AM losartan 100 mg tablet RxNorm: 145078 TAKE 1 TABLET BY MOUTH DAILY 11/07/2017 06/04/2018 Active Generic For:COZAAR 100MG 11/07/2017 9:05:45 AM bisoprolol 5 mg-hydrochlorothiazide 6.25 mg tablet RxNorm: 565220 TAKE 1 TABLET BY MOUTH TWICE DAILY 09/15/20172017 Inactive Generic For:ZIAC 5-6.25MG 09/15/2017 9:07:10 AM glimepiride 2 mg tablet RxNorm: 950709 TAKE 1/2 (ONE- HALF) TABLET BY MOUTH TWICE DAILY 06/17/2017 12/05/2017 Inactive Generic For:AMARYL 2MG 06/17/2017 9:01:41 AM simvastatin 20 mg tablet RxNorm: 964738 TAKE ONE TABLET BY MOUTH DAILY 06/17/2017 03/05/2018 Inactive Generic For:ZOCOR 20MG 06/17/2017 9:01:38 AM losartan 100 mg tablet RxNorm: 496339 TAKE 1 TABLET BY MOUTH DAILY 04/18/2017 11/06/2017 Inactive Generic For:COZAAR 100MG 04/18/2017 9:40:33 AM bisoprolol 5 mg-hydrochlorothiazide 6.25 mg tablet RxNorm: 901356 TAKE 1 TABLET BY MOUTH TWICE DAILY 02/17/20172017 Inactive Generic For:ZIAC 5-6.25MG 02/17/2017 9:04:42 AM glimepiride 2 mg tablet RxNorm: 974715 1/2 Tablet(s) BID 201606/16/2017 Inactive Generic For:AMARYL 2MG 07/22/2016 9:03:39 AM Zithromax 250 mg tablet RxNorm: 255754 two pills on day #1 then 1 Tablet(s) PO daily 01/04/2017 01/08/2017 Inactive zpackx1 glimepiride 2 mg tablet RxNorm: 855972 1 Tablet(s) TAKE 1 TABLET BY MOUTH TWICE DAILY 11/17/2016 02/01/2017 Inactive Generic For:AMARYL 2MG 07/22/2016 9:03:39 AM glimepiride 2 mg tablet RxNorm: 096587 1 Tablet(s) TAKE 1 TABLET BY MOUTH TWICE DAILY 11/17/2016 11/16/2016 Inactive Generic For:AMARYL 2MG 07/22/2016 9:03:39 AM Ness Allergy 180 mg tablet RxNorm: 609891 1 Tablet(s) PO daily 10/25/2016 10/24/2016 Inactive Zithromax 250 mg tablet RxNorm: 735458 1 Tablet(s) PO daily 10/24/2016 Inactive zpackx1 Ness Allergy 180 mg tablet RxNorm: 364506 1 Tablet(s) PO daily 10/25/2016 03/07/2017 Inactive Zithromax 250 mg tablet RxNorm: 580284 1 Tablet(s) PO daily 10/29/2016 Inactive zpackx1 glimepiride 2 mg tablet RxNorm: 549856 1/2 Tablet(s) TAKE 1 TABLET BY MOUTH TWICE DAILY 10/12/2016 11/16/2016 Inactive Generic For:AMARYL 2MG 07/22/2016 9:03:39 AM losartan 100 mg tablet RxNorm: 181312 1 Tablet(s) PO daily 04/17/2017 Inactive metformin 500 mg tablet RxNorm: 748792 TAKE 1 TABLET BY MOUTH TWICE DAILY 09/20/2016 11/15/2016 Inactive Generic For:GLUCOPHAGE 500MG 09/20/2016 9:11:58 AM simvastatin 20 mg tablet RxNorm: 089326 TAKE ONE TABLET BY MOUTH DAILY 09/20/2016 06/16/2017 Inactive Generic For:ZOCOR 20MG 09/20/2016 9:11:29 AM bisoprolol 5 mg-hydrochlorothiazide 6.25 mg tablet RxNorm: 275586 TAKE 1 TABLET BY MOUTH TWICE DAILY 07/22/20162016 Inactive Generic For:ZIAC 5-6.25MG 07/22/2016 9:03:48 AM glimepiride 2 mg tablet RxNorm: 058240 TAKE 1 TABLET BY MOUTH TWICE DAILY 07/22/2016 10/11/2016 Inactive Generic For:AMARYL 2MG 07/22/2016 9:03:39 AM meloxicam 15 mg tablet RxNorm: 838712 TAKE 1 TABLET BY MOUTH DAILY 05/24/2016 11/15/2016 Inactive Generic For:MOBIC 15MG 05/24/2016 9:12:11 AM metformin 500 mg tablet RxNorm: 234606 1 Tablet(s) BID 201609/19/2016 Inactive Generic For:GLUCOPHAGE 500MG 04/29/2015 3:46:58 PM bisoprolol 5 mg-hydrochlorothiazide 6.25 mg tablet RxNorm: 535141 TAKE 1 TABLET BY MOUTH TWICE DAILY 03/31/20162016 Inactive Generic For:ZIAC 5-6.25MG 03/31/2016 12:38:33 PM glimepiride 2 mg tablet RxNorm: 391853 TAKE 1 TABLET BY MOUTH TWICE DAILY 03/31/2016 07/21/2016 Inactive Generic For:AMARYL 2MG 03/31/2016 12:38:28 PM losartan 100 mg tablet RxNorm: 336858 1 Tablet(s) PO daily 09/19/2016 Inactive simvastatin 20 mg tablet RxNorm: 045780 1 Tablet(s) PO daily 09/18/2016 Inactive glimepiride 2 mg tablet RxNorm: 466740 1 Tablet(s) PO BID 11/2303/22/2016 Inactive meloxicam 15 mg tablet RxNorm: 176833 1 Tablet(s) PO daily 05/21/2016 Inactive bisoprolol 5 mg-hydrochlorothiazide 6.25 mg tablet RxNorm: 365000 1 Tablet(s) PO BID 11/24/2015 03/22/2016 Inactive Generic For:ZIAC 5-6.25MG 03/31/2015 4:06:14 PM03/31/2015 3:58:36 PM metformin 500 mg tablet RxNorm: 997841 1 Tablet(s) BID 201504/04/2016 Inactive Generic For:GLUCOPHAGE 500MG 04/29/2015 3:46:58 PM losartan 50 mg tablet RxNorm: 362835 1 Tablet(s) PO daily 201502/29/2016 Inactive bisoprolol 5 mg-hydrochlorothiazide 6.25 mg tablet RxNorm: 939415 1 Tablet(s) PO BID 07/29/2015 11/23/2015 Inactive Generic For:ZIAC 5-6.25MG 03/31/2015 4:06:14 PM03/31/2015 3:58:36 PM bisoprolol 5 mg-hydrochlorothiazide 6.25 mg tablet RxNorm: 543002 Tablet(s) 1 TABLET(S) BY MOUTH DAILY 07/21/20152015 Inactive Generic For:ZIAC 5-6.25MG 03/31/2015 4:06:14 PM03/31/2015 3:58:36 PM meloxicam 15 mg tablet RxNorm: 076077 1 Tablet(s) PO daily 11/17/2015 Inactive glimepiride 2 mg tablet RxNorm: 949466 1 Tablet(s) PO BID 07/2011/17/2015 Inactive metformin 500 mg tablet RxNorm: 621556 Tablet(s) TAKE 1 TABLET BY MOUTH IN THE MORNING AND 1/2 TABLET IN THE EVENING 06/16/2015 11/06/2015 Inactive Generic For: GLUCOPHAGE 500MG 04/29/2015 3:46:58 PM metformin 500 mg tablet RxNorm: 177209 Tablet(s) TAKE 1 TABLET BY MOUTH IN THE MORNING AND 1/2 TABLET IN THE EVENING 05/19/2015 06/15/2015 Inactive Generic For: GLUCOPHAGE 500MG 04/29/2015 3:46:58 PM metformin 500 mg tablet RxNorm: 629646 TAKE 1/2 (ONE- HALF) TABLET BY MOUTH DAILY BY MOUTH TWICE DAILY 04/29/20152015 Inactive Generic For:GLUCOPHAGE 500MG 04/29/2015 3:46:58 PM meloxicam 15 mg tablet RxNorm: 639694 1 Tablet(s) PO daily 07/20/2015 Inactive simvastatin 20 mg tablet RxNorm: 975871 1 Tablet(s) PO daily 12/23/2015 Inactive bisoprolol 5 mg-hydrochlorothiazide 6.25 mg tablet RxNorm: 069182 1 TABLET(S) BY MOUTH DAILY 03/31/2015 07/20/2015 Inactive Generic For:ZIAC 5-6.25MG 03/31/2015 4: 06:14 PM03/31/2015 3:58:36 PM glimepiride 2 mg tablet RxNorm: 778771 1 Tablet(s) PO BID 02/0506/04/2015 Inactive increase to BID metformin 500 mg tablet RxNorm: 789722 1/2 Tablet(s) PO BID 04/20/2015 Inactive bisoprolol 5 mg-hydrochlorothiazide 6.25 mg tablet RxNorm: 053810 1 Tablet(s) PO daily 12/05/2014 12/04/2014 Inactive bisoprolol 5 mg-hydrochlorothiazide 6.25 mg tablet RxNorm: 978996 1 Tablet(s) PO daily 12/05/2014 03/30/2015 Inactive meloxicam 15 mg tablet RxNorm: 469985 1 Tablet(s) PO daily 04/201404/01/2015 Inactive Truetest Test Strips RxNorm: Miscellaneous daily 11/20/2014 11/19/2014 Inactive Truetest Test Strips RxNorm: Miscellaneous daily 11/20/2014 11/14/2015 Inactive finasteride 5 mg tablet RxNorm: 660894 1 Tablet(s) PO daily No Start Date Active tamsulosin 0.4 mg capsule RxNorm: 136942 1 Capsule(s) PO daily No Start Date Active simvastatin 20 mg tablet RxNorm: 549386 1 Tablet(s) PO daily No Start Date 04/01/2015 Inactive meloxicam 15 mg tablet RxNorm: 576383 1 Tablet(s) PO daily No Start Date 12/02/2014 Inactive metformin 500 mg tablet RxNorm: 361824 1/2 Tablet(s) PO BID No Start Date 01/20/2015 Inactive glimepiride 2 mg tablet RxNorm: 415935 1 Tablet(s) PO daily No Start Date 02/04/2015 Inactive Ziac 5 mg-6.25 mg tablet RxNorm: 068989 1 Tablet(s) PO daily No Start Date 04/02/2015 Inactive Medication Administered No Medication Administered data Immunizations No Immunization data Assessments Condition Codes Effective Dates Encounter for general adult medical examination with abnormal findings ICD-10: Z00.01 ICD-9: V70.0 03/20/2018 Type 2 diabetes mellitus with hyperglycemia ICD-10: E11.65 ICD-9: 250.00 03/07/2018 Chronic kidney disease, stage 3 (moderate) ICD-10: N18.3 ICD-9: 585.3 03/07/2018 Actinic keratosis ICD-10: L57.0 ICD-9: 702.0 03/07/2018 Essential (primary) hypertension ICD-10: I10 ICD-9: 401.1 03/07/2018 Type 2 diabetes mellitus without complications ICD-10: E11.9 ICD-9: 250.00 09/07/2017 Malignant neoplasm of prostate ICD-10: C61 ICD-9: 185 09/07/2017 Changes in skin texture ICD-10: R23.4 ICD-9: 782.9 05/05/2017 Abnormal weight loss ICD-10: R63.4 ICD-9: 783.21 2017 Essential (primary) hypertension ICD-10: I10 ICD-9: 401.9 [...] Visit Reason For Visit Effective Dates Notes Annual Medicare Wellness Exam 03/20/2018 hypertension 03/07/2018 hypertension 01/30/2018 hypertension 09/07/2017 hypertension [...] Metabolic Ord15 CALCIUM 9.5 mg/dL 03/03/2018 %Hba1C Okc958 % HbA1c 65117-2 6.7 % 01/02/2018 %Hba1C Akj356 Gluc Ave 146 mg/dL 01/02/2018 Cbc With [...] 32.7 pg 01/02/2018 Cbc With Differential Ord2 Dickson% 9.2 % 01/02/2018 Cbc With Differential Ord2 [...] 1.45 K/ul 01/02/2018 Cbc With Differential Ord2 Dickson ABS# 0.7 K/ul 01/02/2018 Cbc With Differential Ord2 Eos ABS# 0.1 K/ul 01/02/2018 Cbc With Differential Ord2 Baso ABS# 0.0 K/ul 01/02/2018 Comp Metabolic Bhq895 NA 138 mEq/L 01/02/2018 Comp Metabolic Qbk033 K 4.5 mEq/L 01/02/2018 Comp Metabolic Mza513 CL 103 mEq/L 01/02/2018 Comp Metabolic Han060 CO2 28.0 mEq/L 01/02/2018 Comp Metabolic Nna935 ANION GAP 12 01/02/2018 Comp Metabolic Jai909 GLUCOSE 186 mg/dL 01/02/2018 Comp Metabolic Jyv915 Creat 1.9 mg/dL 01/02/2018 Comp Metabolic Srr575 eGFR 37 ml/min/1.73m2 01/02/2018 Comp Metabolic Duj678 BUN 23 mg/dL 01/02/2018 Comp Metabolic Adv603 B/C Ratio 12.2 Ratio 01/02/2018 Comp Metabolic Ffn121 CALCIUM 9.4 mg/dL 01/02/2018 Comp Metabolic Uur114 ALK PHOS 46 U/L 01/02/2018 Comp Metabolic Uft090 AST(SGOT) 16 U/L 01/02/2018 Comp Metabolic Clp618 ALT(SGPT) 19 U/L 01/02/2018 Comp Metabolic Xir077 BILI T 0.6 mg/dL 01/02/2018 Comp Metabolic Cdd339 ALBUMIN 3.8 g/dL 01/02/2018 Comp Metabolic Teg660 TPRO 6.1 g/dL 01/02/2018 Comp Metabolic Mge022 GLOB 2.3 g/dL 01/02/2018 Comp Metabolic Yhg065 A/G Ratio 1.6 Ratio 01/02/2018 Comp Metabolic Rhr720 Osmo 284 mOsmo 01/02/2018 %Hba1C Hah298 % HbA1c 01273-1 6.5 % 08/31/2017 %Hba1C Gep519 Gluc Ave 140 mg/dL 08/31/2017 Lipid Ord30 [...] 33.0 pg 08/31/2017 Cbc With Differential Ord2 Dickson% 11.7 % 08/31/2017 Cbc With Differential Ord2 [...] 1.77 K/ul 08/31/2017 Cbc With Differential Ord2 Dickson ABS# 0.9 K/ul 08/31/2017 Cbc With Differential Ord2 Eos ABS# 0.1 K/ul 08/31/2017 Cbc With Differential Ord2 Baso ABS# 0.0 K/ul 08/31/2017 Comp Metabolic Rsl886 NA 139 mEq/L 08/31/2017 Comp Metabolic Uep676 K 4.7 mEq/L 08/31/2017 Comp Metabolic Yil546 CL 107 mEq/L 08/31/2017 Comp Metabolic Kee246 CO2 24.0 mEq/L 08/31/2017 Comp Metabolic Etm534 ANION GAP 13 08/31/2017 Comp Metabolic Icy604 GLUCOSE 158 mg/dL 08/31/2017 Comp Metabolic Eod181 Creat 1.7 mg/dL 08/31/2017 Comp Metabolic Gjo652 eGFR 43 ml/min/1.73m2 08/31/2017 Comp Metabolic Waa025 BUN 26 mg/dL 08/31/2017 Comp Metabolic Njk814 B/C Ratio 15.5 Ratio 08/31/2017 Comp Metabolic Gpj025 CALCIUM 9.5 mg/dL 08/31/2017 Comp Metabolic Zhf797 ALK PHOS 47 U/L 08/31/2017 Comp Metabolic Agr944 AST(SGOT) 16 U/L 08/31/2017 Comp Metabolic Rxq427 ALT(SGPT) 17 U/L 08/31/2017 Comp Metabolic Zcj919 BILI T 0.8 mg/dL 08/31/2017 Comp Metabolic Khi607 ALBUMIN 4.0 g/dL 08/31/2017 Comp Metabolic Ksp997 TPRO 6.4 g/dL 08/31/2017 Comp Metabolic Nuv074 GLOB 2.5 g/dL 08/31/2017 Comp Metabolic Mfr504 A/G Ratio 1.6 Ratio 08/31/2017 Comp Metabolic Lws585 Osmo 286 mOsmo 08/31/2017 Tsh Ord6 hTSH [...] 21.9 % 04/27/2017 Cbc With Differential Ord2 Dickson% 10.5 % 04/27/2017 Cbc With Differential Ord2 [...] 1.42 K/ul 04/27/2017 Cbc With Differential Ord2 Dickson ABS# 0.7 K/ul 04/27/2017 Cbc With Differential Ord2 Eos ABS# 0.1 K/ul 04/27/2017 Cbc With Differential Ord2 Baso ABS# 0.0 K/ul 04/27/2017 %Hba1C Nve243 % HbA1c 96564-7 6.5 % 04/27/2017 %Hba1C Blc304 Gluc Ave 140 mg/dL 04/27/2017 Lipid Ord30 CHOL 134 mg/dL 04/27/2017 Lipid Ord30 HDL 44.0 mg/dl 04/27/2017 Lipid Ord30 TRIG 89 mg/dL 04/27/2017 Lipid Ord30 LDL 72 mg/dL 04/27/2017 Lipid Ord30 C/HDL 3.0 Ratio 04/27/2017 Comp Metabolic Fds876 NA 140 mEq/L 04/27/2017 Comp Metabolic Cjq219 K 4.3 mEq/L 04/27/2017 Comp Metabolic Vzd647 CL 105 mEq/L 04/27/2017 Comp Metabolic Sgo325 CO2 26.0 mEq/L 04/27/2017 Comp Metabolic Hof200 ANION GAP 13 04/27/2017 Comp Metabolic Bon100 GLUCOSE 117 mg/dL 04/27/2017 Comp Metabolic Pia407 Creat 1.6 mg/dL 04/27/2017 Comp Metabolic Bfz616 eGFR 45 ml/min/1.73m2 04/27/2017 Comp Metabolic Byx894 BUN 27 mg/dL 04/27/2017 Comp Metabolic Glc398 B/C Ratio 16.9 Ratio 04/27/2017 Comp Metabolic Fok546 CALCIUM 9.5 mg/dL 04/27/2017 Comp Metabolic Dvi934 ALK PHOS 55 U/L 04/27/2017 Comp Metabolic Ykp137 AST(SGOT) 20 U/L 04/27/2017 Comp Metabolic Uup817 ALT(SGPT) 18 U/L 04/27/2017 Comp Metabolic Hmm180 BILI T 0.4 mg/dL 04/27/2017 Comp Metabolic Udu820 ALBUMIN 4.0 g/dL 04/27/2017 Comp Metabolic Ods674 TPRO 6.5 g/dL 04/27/2017 Comp Metabolic Rnk176 GLOB 2.5 g/dL 04/27/2017 Comp Metabolic Urp665 A/G Ratio 1.6 Ratio 04/27/2017 Comp Metabolic Ytk014 Osmo 286 mOsmo 04/27/2017 Total Psa Ord10 PSA 7.87 ng/mL 04/27/2017 Comp Metabolic Kbz615 NA 136 mEq/L 12/29/2016 Comp Metabolic Gtt813 K 4.5 mEq/L 12/29/2016 Comp Metabolic Lwt861 CL 103 mEq/L 12/29/2016 Comp Metabolic Kso088 CO2 24.0 mEq/L 12/29/2016 Comp Metabolic Jlu680 ANION GAP 14 12/29/2016 Comp Metabolic Wyw947 GLUCOSE 164 mg/dL 12/29/2016 Comp Metabolic Jme585 Creat 1.7 mg/dL 12/29/2016 Comp Metabolic Nae441 eGFR 43 ml/min/1.73m2 12/29/2016 Comp Metabolic Mbp195 BUN 22 mg/dL 12/29/2016 Comp Metabolic Mrf596 B/C Ratio 13.3 Ratio 12/29/2016 Comp Metabolic Wiq049 CALCIUM 9.5 mg/dL 12/29/2016 Comp Metabolic Bxe574 ALK PHOS 58 U/L 12/29/2016 Comp Metabolic Dgo401 AST(SGOT) 16 U/L 12/29/2016 Comp Metabolic Bfj675 ALT(SGPT) 16 U/L 12/29/2016 Comp Metabolic Qxk437 BILI T 0.9 mg/dL 12/29/2016 Comp Metabolic Qka290 ALBUMIN 3.9 g/dL 12/29/2016 Comp Metabolic Xyu994 TPRO 6.4 g/dL 12/29/2016 Comp Metabolic Nlm484 GLOB 2.5 g/dL 12/29/2016 Comp Metabolic Idm059 A/G Ratio 1.5 Ratio 12/29/2016 Comp Metabolic Fiy306 Osmo 279 mOsmo 12/29/2016 Total Psa Ord10 PSA 8.44 ng/mL 11/09/2016 %Hba1C Ruk513 % HbA1c 21398-7 6.4 % 11/09/2016 %Hba1C Gea582 Gluc Ave 137 mg/dL 11/09/2016 Cbc With [...] 25.0 % 11/09/2016 Cbc With Differential Ord2 Dickson% 11.8 % 11/09/2016 Cbc With Differential Ord2 [...] 2.29 K/ul 11/09/2016 Cbc With Differential Ord2 Dickson ABS# 1.1 K/ul 11/09/2016 Cbc With Differential Ord2 Eos ABS# 0.3 K/ul 11/09/2016 Cbc With Differential Ord2 Baso ABS# 0.0 K/ul 11/09/2016 Lipid Ord30 CHOL 152 mg/dL 11/09/2016 Lipid Ord30 HDL 46.0 mg/dl 11/09/2016 Lipid Ord30 TRIG 144 mg/dL 11/09/2016 Lipid Ord30 LDL 77 mg/dL 11/09/2016 Lipid Ord30 C/HDL 3.3 Ratio 11/09/2016 Comp Metabolic Aow427 NA 140 mEq/L 11/09/2016 Comp Metabolic Aga392 K 4.9 mEq/L 11/09/2016 Comp Metabolic Ngn033 CL 106 mEq/L 11/09/2016 Comp Metabolic Icb253 CO2 25.0 mEq/L 11/09/2016 Comp Metabolic Zlz014 ANION GAP 14 11/09/2016 Comp Metabolic Hrc018 GLUCOSE 127 mg/dL 11/09/2016 Comp Metabolic Unm644 Creat 1.7 mg/dL 11/09/2016 Comp Metabolic Etn374 eGFR 43 ml/min/1.73m2 11/09/2016 Comp Metabolic Tht898 BUN 21 mg/dL 11/09/2016 Comp Metabolic Uyt100 B/C Ratio 12.7 Ratio 11/09/2016 Comp Metabolic Ggw442 CALCIUM 9.5 mg/dL 11/09/2016 Comp Metabolic Ukj867 ALK PHOS 45 U/L 11/09/2016 Comp Metabolic Gsr651 AST(SGOT) 18 U/L 11/09/2016 Comp Metabolic Sio370 ALT(SGPT) 16 U/L 11/09/2016 Comp Metabolic Frs431 BILI T 0.6 mg/dL 11/09/2016 Comp Metabolic Ayt372 ALBUMIN 3.9 g/dL 11/09/2016 Comp Metabolic Aha877 TPRO 6.4 g/dL 11/09/2016 Comp Metabolic Hcn199 GLOB 2.5 g/dL 11/09/2016 Comp Metabolic Bef694 A/G Ratio 1.5 Ratio 11/09/2016 Comp Metabolic Wzn455 Osmo 284 mOsmo 11/09/2016 Tsh Ord6 hTSH [...] 15.1 % 03/10/2016 Cbc With Differential Ord2 Dickson% 10.6 % 03/10/2016 Cbc With Differential Ord2 [...] 1.48 K/ul 03/10/2016 Cbc With Differential Ord2 Dickson ABS# 1.0 K/ul 03/10/2016 Cbc With Differential Ord2 Eos ABS# 0.1 K/ul 03/10/2016 Cbc With Differential Ord2 Baso ABS# 0.0 K/ul 03/10/2016 %Hba1C Thd256 % HbA1c 72921-8 6.6 % 03/10/2016 %Hba1C Mth715 Gluc Ave 143 mg/dL 03/10/2016 Comp Metabolic Jdt134 NA 138 mEq/L 03/10/2016 Comp Metabolic Jzb081 K 4.9 mEq/L 03/10/2016 Comp Metabolic Mgu499 CL 102 mEq/L 03/10/2016 Comp Metabolic Utn717 CO2 28.0 mEq/L 03/10/2016 Comp Metabolic Wse141 ANION GAP 13 03/10/2016 Comp Metabolic Pzm671 GLUCOSE 135 mg/dL 03/10/2016 Comp Metabolic Gtf274 Creat 1.5 mg/dL 03/10/2016 Comp Metabolic Nqq008 eGFR 51 ml/min/1.73m2 03/10/2016 Comp Metabolic Cgt457 BUN 28 mg/dL 03/10/2016 Comp Metabolic Fqc587 B/C Ratio 19.3 Ratio 03/10/2016 Comp Metabolic Twi841 CALCIUM 9.8 mg/dL 03/10/2016 Comp Metabolic Wqe452 ALK PHOS 52 U/L 03/10/2016 Comp Metabolic Ftq332 AST(SGOT) 19 U/L 03/10/2016 Comp Metabolic Qoy301 ALT(SGPT) 22 U/L 03/10/2016 Comp Metabolic Lck266 BILI T 0.5 mg/dL 03/10/2016 Comp Metabolic Dft831 ALBUMIN 4.4 g/dL 03/10/2016 Comp Metabolic Tjy410 TPRO 6.8 g/dL 03/10/2016 Comp Metabolic Tjt136 GLOB 2.4 g/dL 03/10/2016 Comp Metabolic Sgo263 A/G Ratio 1.8 Ratio 03/10/2016 Comp Metabolic Gzn788 Osmo 283 mOsmo 03/10/2016 Comp Metabolic Aga321 NA 136 mEq/L 11/06/2015 Comp Metabolic Dch944 K 4.0 mEq/L 11/06/2015 Comp Metabolic Gzl309 CL 102 mEq/L 11/06/2015 Comp Metabolic Wnq685 CO2 27.0 mEq/L 11/06/2015 Comp Metabolic Ejk687 ANION GAP 11 11/06/2015 Comp Metabolic Ozh940 GLUCOSE 144 mg/dL 11/06/2015 Comp Metabolic Alv382 Creat 1.2 mg/dL 11/06/2015 Comp Metabolic Ses369 eGFR 64 ml/min/1.73m2 11/06/2015 Comp Metabolic Pzh852 BUN 23 mg/dL 11/06/2015 Comp Metabolic Afu823 B/C Ratio 19.3 Ratio 11/06/2015 Comp Metabolic Syp793 CALCIUM 10.2 mg/dL 11/06/2015 Comp Metabolic Wqe262 ALK PHOS 52 U/L 11/06/2015 Comp Metabolic Bbb553 AST(SGOT) 16 U/L 11/06/2015 Comp Metabolic Xmx522 ALT(SGPT) 19 U/L 11/06/2015 Comp Metabolic Pwa159 BILI T 0.7 mg/dL 11/06/2015 Comp Metabolic Rui784 ALBUMIN 4.3 g/dL 11/06/2015 Comp Metabolic Nqb418 TPRO 6.8 g/dL 11/06/2015 Comp Metabolic Rci855 GLOB 2.5 g/dL 11/06/2015 Comp Metabolic Vuy591 A/G Ratio 1.7 Ratio 11/06/2015 Comp Metabolic Wgw307 Osmo 278 mOsmo 11/06/2015 Lipid Ord30 CHOL 152 mg/dL 11/06/2015 Lipid Ord30 HDL 48.0 mg/dl 11/06/2015 Lipid Ord30 TRIG 79 mg/dL 11/06/2015 Lipid Ord30 LDL 88 mg/dL 11/06/2015 Lipid Ord30 C/HDL 3.2 Ratio 11/06/2015 %Hba1C Bkp670 % HbA1c 24390-2 7.3 % 11/06/2015 %Hba1C Taq672 Gluc Ave 163 mg/dL 11/06/2015 Cbc With [...] 32.8 pg 06/05/2015 Cbc With Differential Ord2 Dickson% 9.8 % 06/05/2015 Cbc With Differential Ord2 [...] 1.97 K/ul 06/05/2015 Cbc With Differential Ord2 Dickson ABS# 0.9 K/ul 06/05/2015 Cbc With Differential Ord2 Eos ABS# 0.1 K/ul 06/05/2015 Cbc With Differential Ord2 Baso ABS# 0.0 K/ul 06/05/2015 Cbc With Differential Ord2 New Analyzer Notice Please note new ref ranges starting 04-16-2015 due to implemntation of new five part differential hematolgy analyzer. 06/05/2015 %Hba1C Yru615 % HbA1c 14585-1 7.1 % 05/08/2015 %Hba1C Ikv503 Gluc Ave 157 mg/dL 05/08/2015 Microalbumin Est514 MicroAlb 1.2 mg/dL 05/01/2015 Cbc With Differential [...] 33.1 pg 04/30/2015 Cbc With Differential Ord2 Dickson% 11.2 % 04/30/2015 Cbc With Differential Ord2 [...] 2.41 K/ul 04/30/2015 Cbc With Differential Ord2 Dickson ABS# 0.9 K/ul 04/30/2015 Cbc With Differential [...] hTSH II 1.35 uIU/mL 04/30/2015 Comp Metabolic Uwf270 NA 136 mEq/L 04/30/2015 Comp Metabolic Jdy969 K 4.5 mEq/L 04/30/2015 Comp Metabolic Skp681 CL 100 mEq/L 04/30/2015 Comp Metabolic Srz047 CO2 28.0 mEq/L 04/30/2015 Comp Metabolic Kvd638 ANION GAP 13 04/30/2015 Comp Metabolic Wbp728 GLUCOSE 162 mg/dL 04/30/2015 Comp Metabolic Awo975 Creat 1.2 mg/dL 04/30/2015 Comp Metabolic Udo662 eGFR 62 ml/min/1.73m2 04/30/2015 Comp Metabolic Icv776 BUN 21 mg/dL 04/30/2015 Comp Metabolic Qum838 B/C Ratio 17.4 Ratio 04/30/2015 Comp Metabolic Jqx067 CALCIUM 9.9 mg/dL 04/30/2015 Comp Metabolic Fjj110 ALK PHOS 51 U/L 04/30/2015 Comp Metabolic Xpd408 AST(SGOT) 18 U/L 04/30/2015 Comp Metabolic Urb703 ALT(SGPT) 23 U/L 04/30/2015 Comp Metabolic Mlz002 BILI T 0.5 mg/dL 04/30/2015 Comp Metabolic Piu808 ALBUMIN 4.2 g/dL 04/30/2015 Comp Metabolic Ude451 TPRO 6.9 g/dL 04/30/2015 Comp Metabolic Nop265 GLOB 2.7 g/dL 04/30/2015 Comp Metabolic Wlx734 A/G Ratio 1.6 Ratio 04/30/2015 Comp Metabolic Rrz040 Osmo 278 mOsmo 04/30/2015 Metabolic Ord15 NA [...] Differential Ord2 RDW 13.6 % 01/28/2015 %Hba1C Jnk850 % HbA1c 32652-1 7.3 % 01/28/2015 %Hba1C Jik379 Gluc Ave 163 mg/dL 01/28/2015 %Hba1C Thj110 % HbA1c 15857-6 7.8 % 10/24/2014 %Hba1C Ewg175 Gluc Ave 177 mg/dL 10/24/2014 Cbc With [...] Ord2 RDW 13.7 % 10/23/2014 Comp Metabolic Toe645 NA 135 mEq/L 10/23/2014 Comp Metabolic Txe157 K 4.4 mEq/L 10/23/2014 Comp Metabolic Iio235 CL 99 mEq/L 10/23/2014 Comp Metabolic Vkk873 CO2 31.0 mEq/L 10/23/2014 Comp Metabolic Mqi299 ANION GAP 9 10/23/2014 Comp Metabolic Aem697 GLUCOSE 203 mg/dL 10/23/2014 Comp Metabolic Orx717 Creat 1.1 mg/dL 10/23/2014 Comp Metabolic Lrd911 eGFR 72 ml/min/1.73m2 10/23/2014 Comp Metabolic Ahq358 BUN 19 mg/dL 10/23/2014 Comp Metabolic Dff611 B/C Ratio 17.8 Ratio 10/23/2014 Comp Metabolic Bmy292 CALCIUM 10.2 mg/dL 10/23/2014 Comp Metabolic Pot092 ALK PHOS 55 U/L 10/23/2014 Comp Metabolic Elg674 AST(SGOT) 22 U/L 10/23/2014 Comp Metabolic Idt822 ALT(SGPT) 34 U/L 10/23/2014 Comp Metabolic Int587 BILI T 0.8 mg/dL 10/23/2014 Comp Metabolic Bst796 ALBUMIN 4.3 g/dL 10/23/2014 Comp Metabolic Rnz129 TPRO 6.7 g/dL 10/23/2014 Comp Metabolic Cof760 GLOB 2.4 g/dL 10/23/2014 Comp Metabolic Cgq839 A/G Ratio 1.8 Ratio 10/23/2014 Comp Metabolic Kgm583 Osmo 278 mOsmo 10/23/2014 Review of Systems System Result Effective Dates Constitutional No recent illness 2017 Constitutional No chills 03/20/2018 Constitutional No diaphoresis 03/20/2018 Constitutional No fever 03/20/2018 Eyes No eye erythema 03/20/2018 Ears/Nose/Throat/Neck No nasal discharge 03/20/2018 Cardiovascular No chest pain/pressure Cardiovascular No dyspnea 03/20/2018 Respiratory No cough 03/20/2018 Respiratory No dyspnea 03/20/2018 Neurologic No alteration of consciousness 03/20/2018 Neurologic No mental status change 2017 Constitutional No recent illness 2017 Constitutional [...] 1994 Constitutional general appearance Overall: well developed 03/20/2018 None Full Exam - General 1994 Constitutional general appearance Overall: in no acute distress 03/20/2018 None Full Exam - General 1994 Constitutional general appearance Overall: well nourished 03/20/2018 None Full Exam - General 1994 Eyes conjunctiva /eyelids Overall: conjunctiva clear 03/20/2018 None Full Exam - General 1994 Eyes conjunctiva /eyelids Overall: eyelids normal 03/20/2018 None Full Exam - General 1994 Ears/Nose/Throat lips/teeth/gingiva Overall: benign lips 03/20/2018 None Full Exam - General 1994 Respiratory respiratory effort/rhythm Overall: no retractions 03/20/2018 None Full Exam - General 1994 Respiratory respiratory effort/rhythm Overall: normal rate 03/20/2018 None Full Exam - General 1994 Musculoskeletal head and neck Overall: head atraumatic 03/20/2018 None Full Exam - General 1994 Neurologic cranial nerves Overall: crainial nerves 2 - 12 grossly intact 03/20/2018 None Full Exam - General 1994 Psychiatric orientation/consciousness Overall: oriented to person, place and time 03/20/2018 None Full Exam - General 1994 Psychiatric mood and affect Overall: normal mood and affect 03/20/2018 None Full Exam - General 1994 Psychiatric appearance Overall: well-groomed, good eye contact 03/20/2018 None Full Exam - General 1994 Constitutional [...] inspection of skin Location: face 03/07/2018 left synagogue nodular lesion treated with cryotherapy x 3 [...] Date PPPS, SUBSEQ VISIT CPT -4: G0439 03/20/2018 DESTRUCT PREMALG LESION CPT-4: 93568 03/07/2018 DESTRUCT PREMALG LES 2-14 CPT-4: 46352 03/07/2018 PPPS, SUBSEQ VISIT CPT -4: G0439 03/15/2017 PPPS, SUBSEQ VISIT CPT -4: G0439 03/12/2016 DESTRUCT PREMALG LESION CPT-4: 52270 10/23/2014 DESTRUCT PREMALG LES 2-14 CPT-4: 42704 10/23/2014 Vital Signs Date Vital 03/20/2018 Blood Pressure 1: 140/62 Code : 8480-6 BMI: 29.8 Code : 50134-3 Heart Rate 1 : 59 bpm Height: 5'5" SpO2: 96% Weight: 179 lbs 03/07/2018 Blood Pressure 1: 160/80 Code : 8480-6 BMI: 29.8 Code : 60770-3 Heart Rate 1 : 56 bpm Height: 5'5" SpO2: 96% Weight: 179 lbs 01/30/2018 Blood Pressure 1: 144/64 Code : 8480-6 Blood Pressure 2: 150/64 Code: 8480-6 BMI: 29.6 Code: 04441-7 Heart Rate 1: 61 bpm Height: 5'5" SpO2: 98% Weight: 178 lbs 09/07/2017 Blood Pressure 1: 148/68 Code : 8480-6 BMI: 29.6 Code : 21776-8 Heart Rate 1 : 60 bpm Height: 5'5" SpO2: 98% Weight: 178 lbs 05/05/2017 Blood Pressure 1: 122/64 Code : 8480-6 BMI: 28.3 Code : 76166-4 Heart Rate 1 : 56 bpm Height: 5'5" SpO2: 97% Weight: 170 lbs 2017 BMI: 29.1 Code: 02194-5 Height: 5'5" Weight: 175 lbs 03/15/2017 Blood Pressure 1: 136/76 Code : 8480-6 BMI: 29.1 Code : 72534-8 Heart Rate 1 : 82 bpm Height: 5'5" SpO2: 98% Weight: 175 lbs 03/03/2017 BMI: 29.1 Code: 99015-2 Height: 5'5" Weight: 175 lbs 02/02/2017 Blood Pressure 1: 132/60 Code : 8480-6 BMI: 28.6 Code : 61225-7 Heart Rate 1 : 64 bpm Height: 5'5" SpO2: 99% Weight: 172 lbs 01/04/2017 Blood Pressure 1: 138/70 Code : 8480-6 BMI: 29.6 Code : 40010-5 Heart Rate 1 : 59 bpm Height: 5'5" SpO2: 99% Weight: 178 lbs 11/16/2016 Blood Pressure 1: 150/70 Code : 8480-6 BMI: 30.6 Code : 03450-2 Heart Rate 1 : 68 bpm Height: 5'5" SpO2: 94% Weight: 184 lbs 07/19/2016 Blood Pressure 1: 150/70 Code : 8480-6 Blood Pressure 2: 154/70 Code: 8480-6 BMI: 31.0 Code: 68434-4 Heart Rate 1: 61 bpm Height: 5'5" SpO2: 98% Weight: 186 lbs 03/12/2016 Blood Pressure 1: 156/80 Code : 8480-6 BMI: 30.5 Code : 21567-2 Heart Rate 1 : 60 bpm Height: 5'5" SpO2: 98% Waist Measure (cm): 91 cm Weight: 183 lbs 03/10/2016 Blood Pressure 1: 158/78 Code : 8480-6 Blood Pressure 1: 158/78 Code: 8480-6 BMI: 30.5 Code: 66752-6 Heart Rate 1: 61 bpm Height: 5'5" SpO2: 98% Weight: 183 lbs 11/06/2015 Blood Pressure 1: 156/80 Code : 8480-6 Blood Pressure 1: 138/70 Code: 8480-6 BMI: 30.1 Code: 76156-3 Heart Rate 1: 64 bpm Height: 5'5" SpO2: 98% Weight: 181 lbs 09/09/2015 Blood Pressure 1: 126/68 Code : 8480-6 08/26/2015 Blood Pressure 1: 168/74 Code : 8480-6 Blood Pressure 1: 162/76 Code: 8480-6 BMI: 29.8 Code: 89362-7 Heart Rate 1: 61 bpm Height: 5'5" SpO2: 98% Weight: 179 lbs 07/29/2015 Blood Pressure 1: 166/76 Code : 8480-6 BMI: 30.0 Code : 86469-8 Heart Rate 1 : 75 bpm Height: 5'5" SpO2: 99% Weight: 180 lbs 04/29/2015 Blood Pressure 1: 130/70 Code : 8480-6 Blood Pressure 1: 132/76 Code: 8480-6 BMI: 30.8 Code: 61874-9 Heart Rate 1: 64 bpm Height: 5'5" SpO2: 99% Weight: 185 lbs 10/23/2014 Blood Pressure 1: 140/76 Code : 8480-6 BMI: 30.5 Code : 97311-6 Heart Rate 1 : 63 bpm Height: 5'5" SpO2: 98% Weight: 183 lbs Functional Status No Functional Status data History of Present Illness Symptom Name Status Result Effective Date Notes Alcohol Use does not drink any alcohol 03/20/2018 None Depression (last 6 months) almost never 03/20/2018 None Depression or Hopelessness almost never 03/20/2018 None Describe Your Health excellent 03/20/2018 None Exercise Habits does not exercise 03/20/2018 None Handling Stress usually tonya effectively 03/20/2018 None Interaction with Friends yes 03/20/2018 None Interests & Pleasure most of the time 03/20/2018 None Life Satisfaction satisfied 03/20/2018 None Motor Vehicle Safety always fastens seat belt: y 03/20/2018 None Motor Vehicle Safety drives after drinking: n 03/20/2018 None Motor Vehicle Safety rides with someone who has been drinking: n 03/20/2018 None Smoking and Tobacco Use non smoker 03/20/2018 None Social & Emotional Support always 03/20/2018 None Stress some of the time 03/20/2018 None Sun Exposure protects skin when outdoors : y 03/20/2018 None Aspirin Use no 2017 None Blood Glucose (self reported) desireable (below 100) 03/20/2018 None Blood Pressure (self reported) low / normal (120/80) 03/20/2018 None Cholesterol (self reported) don't know 03/20/2018 None Hemaglobin A-1C (self reported) don't know 03/20/2018 None Hours of Sleep 5 None Nutrition servings of fried food / high fat foods per day: 2 03/20/2018 None Nutrition servings of high fiber / whole grain per day: 1 03/20/2018 None Nutrition servings of vegetables / fruit per day: 2 03/20/2018 None Quality chronic 03/07 None Quality primary hypertension [...] data Encounters Encounter Performer Location Codes Date ([id number]) 82571 EST. PATIENT, LEVEL IV Diagnosis: Essential (primary) hypertension[ICD10: I10] Diagnosis: Chronic kidney disease, stage 3 (moderate)[ICD10: N18.3] Diagnosis: Type 2 diabetes mellitus with hyperglycemia[ICD10: E11.65] [facility] CPT-4: 16643 03/07/2018 ([id number]) 41444 EST. PATIENT, LEVEL IV Diagnosis: Type 2 diabetes mellitus with hyperglycemia[ICD10: E11.65] Diagnosis: Chronic kidney disease, stage 3 (moderate)[ICD10: N18.3] Diagnosis: Essential (primary) hypertension[ICD10: I10] [facility] CPT-4: 42862 01/30/2018 ([id number]) 03853 EST. PATIENT, LEVEL IV Diagnosis: Essential (primary) hypertension[ICD10: I10] Diagnosis: Type 2 diabetes mellitus without complications[ICD10: E11.9] Diagnosis: Malignant neoplasm of prostate[ICD10: C61] Diagnosis: Chronic kidney disease, stage 3 (moderate)[ICD10: N18.3] Virginie Isaac MD [facility] CPT-4: 21808 09/07/2017 ([id number]) 51110 EST. PATIENT, LEVEL IV Diagnosis: Type 2 diabetes mellitus without complications[ICD10: E11.9] Diagnosis: Essential (primary) hypertension[ICD10: I10] Diagnosis: Changes in skin texture[ICD10: R23.4] Diagnosis: Chronic kidney disease, stage 3 (moderate)[ICD10: N18.3] Virginie Isaac MD [facility] CPT-4: 00396 05/05/2017 ([id number]) Miscellaneous no charge Diagnosis: Abnormal weight loss[ICD10: R63.4] Virginie Isaac MD [facility] CPT-4: 22197 2017 ([id number]) Miscellaneous no charge Diagnosis: Abnormal weight loss[ICD10: R63.4] Virginie Isaac MD [facility] CPT-4: 13411 03/03/2017 ([id number]) 84278 EST. PATIENT, LEVEL III Diagnosis: Type 2 diabetes mellitus with hyperglycemia[ICD10: E11.65] Diagnosis: Essential (primary) hypertension[ICD10: I10] Virginie Isaac MD [facility] CPT-4: 16754 02/02/2017 ([id number]) 68429 EST. PATIENT, LEVEL IV Diagnosis: Type 2 diabetes mellitus with hyperglycemia[ICD10: E11.65] Diagnosis: Essential (primary) hypertension[ICD10: I10] Diagnosis: Chronic kidney disease, stage 3 (moderate)[ICD10: N18.3] [facility]ie Isaac MD [facility] CPT-4: 87800 01/04/2017 ([id number]) 57689 EST. PATIENT, LEVEL IV Diagnosis: Type 2 diabetes mellitus with hyperglycemia[ICD10: E11.65] Diagnosis: Essential (primary) hypertension[ICD10: I10] Diagnosis: Chronic kidney disease, stage 3 (moderate)[ICD10: N18.3] Diagnosis: Elevated prostate specific antigen [PSA][ICD10: R97.20] Virginie Isaac MD [facility] CPT-4: 21407 11/16/2016 ([id number]) 79193 EST. PATIENT, LEVEL IV Diagnosis: Essential (primary) hypertension[ICD10: I10] Diagnosis: Type 2 diabetes mellitus with hyperglycemia[ICD10: E11.65] Diagnosis: Mixed hyperlipidemia[ICD10: E78.2] Virginie Isaac MD [facility] CPT-4: 52400 07/19/2016 ([id number]) 36321 EST. PATIENT, LEVEL IV Diagnosis: Type 2 diabetes mellitus with hyperglycemia[ICD10: E11.65] Diagnosis: Essential (primary) hypertension[ICD10: I10] Diagnosis: Mixed hyperlipidemia[ICD10: E78.2] Virginie Isaac MD [facility] CPT-4: 60120 03/10/2016 ([id number]) 07929 EST. PATIENT, LEVEL III Diagnosis: Essential (primary) hypertension[ICD10: I10] Diagnosis: Type 2 diabetes mellitus with hyperglycemia[ICD10: E11.65] Diagnosis: Hyperlipidemia, unspecified[ICD10: E78.5] [facility]ie Isaac MD [facility] CPT-4: 24340 11/06/2015 ([id number]) Miscellaneous no charge Diagnosis: Essential (primary) hypertension[ICD10: I10] Scarlett Isaac MD [facility] CPT-4: 24829 09/09/2015 ([id number]) 99694 EST. PATIENT, LEVEL III Diagnosis: Essential (primary) hypertension[ICD10: I10] Diagnosis: Other skin changes[ICD10: R23.8] Virginie Isaac MD [facility] CPT-4: 20620 08/26/2015 ([id number]) 57501 EST. PATIENT, LEVEL IV Diagnosis: Essential (primary) hypertension[ICD10: I10] Diagnosis: Unspecified amblyopia, right eye[ICD10: H53.001] Diagnosis: Other skin changes[ICD10: R23.8] [facility]ie Isaac MD [facility] CPT-4: 14875 07/29/2015 ([id number]) 59007 EST. PATIENT, LEVEL IV Diagnosis: Type 2 diabetes mellitus with hyperglycemia[ICD10: E11.65] Diagnosis: Essential (primary) hypertension[ICD10: I10] Diagnosis: Hyperlipidemia, unspecified[ICD10: E78.5] [facility]ie Isaac MD [facility] CPT-4: 01208 04/29/2015 ([id number]) OFFICE VISIT, NEW - LEVEL 4 Diagnosis: ESSENTIAL HYPERTENSION[ICD9: 401.9] Diagnosis: DIABETES TYPE II[ICD9: 250.00] Diagnosis: ACTINIC KERATOSIS[ICD9: 702.0] Diagnosis: Impacted cerumen[ICD9: 380.4] [facility] CPT- 4: 70135 10/23/2014 Plan of Care Planned Activity Notes Codes Status Date Visit Plan: Medicare Exam - today we [...] her DOPA paperwork for health care surrogate. 03/20/2018 Patient Education: Patient Medication Summary Completed 03/20/2018 Visit Plan: Hypertension -at home, blood pressure [...] - symptoms improved after stopping hctz. 03/07/2018 Visit Plan: Hypertension -at home, blood pressure [...] CKD - symptoms improved after stopping hctz. Actinic keratosis - treated with cryotherapy z 3 on each site - two on left ear, one on right ear, one on posterior scalp and one on left synagogue. 03/07/2018 Appointment[phone] [facility] (15 min) Moderate 03/07/2018 Patient Education: Patient Medication Summary Completed [...] recommended that he needs to see a [facility], but Suleman is not interested at this time. He has agreed to have repeat bmp in one month off of the hctz and to start on renal diet. Prostate cancer - continue with plans to be seen by Dr. Modi at the cancer center. 01/30/2018 Appointment: [phone] [facility] [place] (15 min) Moderate 01/30/2018 Patient Education: Patient Medication Summary Completed 01/30/2018 Appointment: Virginie Isaac WPtel: [phone] [facility] (15 min) Moderate 01/10/2018 Visit Plan: Diabetes [...] pt is not interested in seeing a [facility] as has been recommended to patient. 09/07/2017 Appointment: Marlin Virginie [facility]el[phone] [facility] (15 min) Moderate 09/07/2017 Patient Education: Patient [...] pt is not interested in seeing a [facility] as has been recommended to patient. Elevated PSA -pt seeing Dr. Harrison. 05/05/2017 Appointment: Virginie Isaac WPtel: [phone] [facility] (15 min) Moderate 05/05/2017 Patient Education: Patient Medication Summary Completed 05/05/2017 [phone] (15 min) Moderate 04/14/2017 Appointment: Nurse [...] care surrogate. 03/15/2017 [facility]: [phone] [phone] [place] [address] - Annual Wellness Visit 03/15/2017 Patient Education: [...] home. 02/02/2017 Appointment: Virginie Isaac WPtel: [facility] (15 min) Moderate 02/02/2017 Patient Education: Patient [...] Completed 01/04/2017 Appointment: Virginie Isaac WPtel: [facility] (15 min) Moderate 12/23/2016 Appointment: Virginie Isaac WPtel: [address] [place], [place] [phone] (15 min) Moderate 12/22/2016 Visit Plan: Hypertension [...] orange juice. 11/16/2016 Appointment: Virginie Isaac WPtel: [facility] (15 min) Moderate 11/16/2016 Patient [...] to medications. 07/19/2016 Appointment: Virginie Isaac WPtel: [address] [place], [place] [phone] (15 min) Moderate 07/19/2016 Patient Education: Patient Medication Summary Completed 07/19/2016 Patient Education: Obesity Completed 07/19/2016 Patient Education: Hypertension Completed 07/19/2016 Appointment: Virginie Isaac WPtel: [address] [place], [place] [phone] [place] (15 min) Moderate 07/06/2016 Visit Plan: [...] care surrogate. 03/12/2016 Appointment: Niecy Sullivan WPtel: [phone] [facility] [place] [address] - Annual Wellness Visit 03/12/2016 Patient Education: [...] at hs 03/10/2016 Appointment: Virgin[facility] Isaac WPtel: [phone] [facility] [place] (15 min) Moderate 03/10/2016 Patient Education: Patient [...] Obesity Completed 11/06/2015 Appointment: Niecy Sullivan WPtel: [address] [place], [place] [phone] (30 min) Complex 10/27/2015 Appointment: Nurse Visit [...] have repeat treatment - one on left synagogue and one on posterior scalp. 08/26/2015 Patient Education: Patient Medication Summary Completed 08/26/2015 Patient Education: Hypertension Completed 08/26/2015 Referral: Tariq Ramirez WPtel: [address] [place], [place] [phone] Referral Completed 08/05/2015 Visit Plan: Hypertension - [...] of efudex. 07/29/2015 Appointment: Virginie Isaac WPtel: [address] [place], [place] [phone] (15 min) Moderate 07/29/2015 Patient Education: Patient Medication Summary Completed 07/29/2015 Patient Education: Obesity Completed 07/29/2015 Patient Education: Hypertension Completed 07/29/2015 Care Plan: Referral Order SNOMED-CT : [id number] Pending 07/29/2015 Patient Education: Patient Medication Summary [...] Care Plan: COMPLETE CBC AUTOMATED LOINC : 02113-8 Ordered 04/29/2015 Care Plan: MICROALBUMIN QUANTITATIVE LOINC : 15674-2 Ordered 04/29/2015 Appointment: (15 min) Moderate 03/31/2015 Appointment: Virginie Isaac WPtel: [address] [place], [place] [phone] (15 min) Moderate 01/22/2015 Visit Plan: Hypertension [...] office visit. 10/23/2014 Appointment: Virginie Isaac WPtel: [address] [place] [id number] [place] ([place]) New Patient 10/23/2014 Patient Education: Patient Medication Summary Completed 10/23/2014 Patient Education: Hypertension Completed 10/23/2014 Referral: Tariq Ramirez WPtel: [address] [place] [address] Referral Appointment Requested Instructions Comment . Medicare Exam - today we discussed [...] her DOPA paperwork for health care surrogate. stop METFORMIN and also STOP MELOXICAM - [...] no sugar added orange juice. . Hypertension -at home, blood pressure is [...] improved after stopping hctz. . Hypertension - well controlled - continue [...] left and right sideburns and on scalp. pt to have hgba1c one week before [...] pt is not interested in seeing a [facility] as has been recommended to patient. Elevated [...] new diabetic medication at this time . Diabetes Mellitus - controlled - per [...] in blood pressure readings at home. . Hypertension - well controlled - continue [...] start on melatonin 3mg at hs . Hypertension - well controlled - continue [...] less controlled. Hyperlipidemia - continue with simvastatin. increase the bisoprolol/hctz to one pill twice [...] have repeat treatment - one on left synagogue and one on posterior scalp. . Hypertension -at home, blood pressure is [...] CKD - symptoms improved after stopping hctz. Actinic keratosis - treated with cryotherapy z 3 on each site - two on left ear , one on right ear, one on posterior scalp and one on left synagogue. get labs one week before your appt [...] to assure normal liver response to medications. use sweet oil, or olive oil, or [...] pt is not interested in seeing a [facility] as has been recommended to patient. . [...] recommended that he needs to see a [facility], but Suleman is not interested at this time. He has agreed to have repeat bmp in one month off of the hctz and to start on renal diet. Prostate cancer - continue with plans to be seen by Dr. Modi at the cancer center.
--- OUTSIDE RECORDS SUMMARY | 2018-05-05 10:44 | XMS REPORT | CCD ---
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 Name Role Phone PP Unavailable CCM Unavailable Summary Purpose Interface Exchange Insurance Providers Payer name Policy type / Coverage type Covered alliance party ID Effective Begin Date Effective End Date WPS Medicare Part B Medicare Part B [id number] 2018 Unknown [facility] Medicare Part B No Plan Member ID [...] self employed 10/23/[address]: 508719148 Never smoker 10/23/[address]: 814359131 Never drinks alcohol 10/23/2014 Allergies, Adverse Reactions, [...] Fill Instructions simvastatin 20 mg tablet RxNorm: 746624 TAKE ONE TABLET BY MOUTH DAILY 03/06/2018 11/30/2018 Active Generic For:ZOCOR 20MG 03/06/2018 9:01:27 AM Truetest Test Strips RxNorm: TEST BLOOD SUGAR EVERY DAY 201711/26/2018 Active 01/30/2018 3:29:14 PM bisoprolol fumarate 5 mg tablet RxNorm: 771957 1 Tablet(s) PO BID 01/30/2018 08/27/2018 Active this replaces his combination pill glimepiride 2 mg tablet RxNorm: 981440 TAKE 1/2 (ONE- HALF) TABLET BY MOUTH TWICE DAILY 12/06/2017 06/03/2018 Active Generic For:AMARYL 2MG 12/06/2017 9:07:06 AM losartan 100 mg tablet RxNorm: 163525 TAKE 1 TABLET BY MOUTH DAILY 11/07/2017 06/04/2018 Active Generic For:COZAAR 100MG 11/07/2017 9:05:45 AM bisoprolol 5 mg-hydrochlorothiazide 6.25 mg tablet RxNorm: 124846 TAKE 1 TABLET BY MOUTH TWICE DAILY 09/15/20172017 Inactive Generic For:ZIAC 5-6.25MG 09/15/2017 9:07:10 AM glimepiride 2 mg tablet RxNorm: 289273 TAKE 1/2 (ONE- HALF) TABLET BY MOUTH TWICE DAILY 06/17/2017 12/05/2017 Inactive Generic For:AMARYL 2MG 06/17/2017 9:01:41 AM simvastatin 20 mg tablet RxNorm: 821044 TAKE ONE TABLET BY MOUTH DAILY 06/17/2017 03/05/2018 Inactive Generic For:ZOCOR 20MG 06/17/2017 9:01:38 AM losartan 100 mg tablet RxNorm: 660468 TAKE 1 TABLET BY MOUTH DAILY 04/18/2017 11/06/2017 Inactive Generic For:COZAAR 100MG 04/18/2017 9:40:33 AM bisoprolol 5 mg-hydrochlorothiazide 6.25 mg tablet RxNorm: 511273 TAKE 1 TABLET BY MOUTH TWICE DAILY 02/17/20172017 Inactive Generic For:ZIAC 5-6.25MG 02/17/2017 9:04:42 AM glimepiride 2 mg tablet RxNorm: 332460 1/2 Tablet(s) BID 201606/16/2017 Inactive Generic For:AMARYL 2MG 07/22/2016 9:03:39 AM Zithromax 250 mg tablet RxNorm: 118485 two pills on day #1 then 1 Tablet(s) PO daily 01/04/2017 01/08/2017 Inactive zpackx1 glimepiride 2 mg tablet RxNorm: 709023 1 Tablet(s) TAKE 1 TABLET BY MOUTH TWICE DAILY 11/17/2016 02/01/2017 Inactive Generic For:AMARYL 2MG 07/22/2016 9:03:39 AM glimepiride 2 mg tablet RxNorm: 826772 1 Tablet(s) TAKE 1 TABLET BY MOUTH TWICE DAILY 11/17/2016 11/16/2016 Inactive Generic For:AMARYL 2MG 07/22/2016 9:03:39 AM Ness Allergy 180 mg tablet RxNorm: 722602 1 Tablet(s) PO daily 10/25/2016 10/24/2016 Inactive Zithromax 250 mg tablet RxNorm: 690655 1 Tablet(s) PO daily 10/24/2016 Inactive zpackx1 Ness Allergy 180 mg tablet RxNorm: 762315 1 Tablet(s) PO daily 10/25/2016 03/07/2017 Inactive Zithromax 250 mg tablet RxNorm: 684352 1 Tablet(s) PO daily 10/29/2016 Inactive zpackx1 glimepiride 2 mg tablet RxNorm: 739446 1/2 Tablet(s) TAKE 1 TABLET BY MOUTH TWICE DAILY 10/12/2016 11/16/2016 Inactive Generic For:AMARYL 2MG 07/22/2016 9:03:39 AM losartan 100 mg tablet RxNorm: 034768 1 Tablet(s) PO daily 04/17/2017 Inactive metformin 500 mg tablet RxNorm: 347914 TAKE 1 TABLET BY MOUTH TWICE DAILY 09/20/2016 11/15/2016 Inactive Generic For:GLUCOPHAGE 500MG 09/20/2016 9:11:58 AM simvastatin 20 mg tablet RxNorm: 601055 TAKE ONE TABLET BY MOUTH DAILY 09/20/2016 06/16/2017 Inactive Generic For:ZOCOR 20MG 09/20/2016 9:11:29 AM bisoprolol 5 mg-hydrochlorothiazide 6.25 mg tablet RxNorm: 491702 TAKE 1 TABLET BY MOUTH TWICE DAILY 07/22/20162016 Inactive Generic For:ZIAC 5-6.25MG 07/22/2016 9:03:48 AM glimepiride 2 mg tablet RxNorm: 925905 TAKE 1 TABLET BY MOUTH TWICE DAILY 07/22/2016 10/11/2016 Inactive Generic For:AMARYL 2MG 07/22/2016 9:03:39 AM meloxicam 15 mg tablet RxNorm: 812154 TAKE 1 TABLET BY MOUTH DAILY 05/24/2016 11/15/2016 Inactive Generic For:MOBIC 15MG 05/24/2016 9:12:11 AM metformin 500 mg tablet RxNorm: 194387 1 Tablet(s) BID 201609/19/2016 Inactive Generic For:GLUCOPHAGE 500MG 04/29/2015 3:46:58 PM bisoprolol 5 mg-hydrochlorothiazide 6.25 mg tablet RxNorm: 703679 TAKE 1 TABLET BY MOUTH TWICE DAILY 03/31/20162016 Inactive Generic For:ZIAC 5-6.25MG 03/31/2016 12:38:33 PM glimepiride 2 mg tablet RxNorm: 465435 TAKE 1 TABLET BY MOUTH TWICE DAILY 03/31/2016 07/21/2016 Inactive Generic For:AMARYL 2MG 03/31/2016 12:38:28 PM losartan 100 mg tablet RxNorm: 204573 1 Tablet(s) PO daily 09/19/2016 Inactive simvastatin 20 mg tablet RxNorm: 582442 1 Tablet(s) PO daily 09/18/2016 Inactive glimepiride 2 mg tablet RxNorm: 468420 1 Tablet(s) PO BID 11/2303/22/2016 Inactive meloxicam 15 mg tablet RxNorm: 208227 1 Tablet(s) PO daily 05/21/2016 Inactive bisoprolol 5 mg-hydrochlorothiazide 6.25 mg tablet RxNorm: 194449 1 Tablet(s) PO BID 11/24/2015 03/22/2016 Inactive Generic For:ZIAC 5-6.25MG 03/31/2015 4:06:14 PM03/31/2015 3:58:36 PM metformin 500 mg tablet RxNorm: 716829 1 Tablet(s) BID 201504/04/2016 Inactive Generic For:GLUCOPHAGE 500MG 04/29/2015 3:46:58 PM losartan 50 mg tablet RxNorm: 124124 1 Tablet(s) PO daily 201502/29/2016 Inactive bisoprolol 5 mg-hydrochlorothiazide 6.25 mg tablet RxNorm: 175194 1 Tablet(s) PO BID 07/29/2015 11/23/2015 Inactive Generic For:ZIAC 5-6.25MG 03/31/2015 4:06:14 PM03/31/2015 3:58:36 PM bisoprolol 5 mg-hydrochlorothiazide 6.25 mg tablet RxNorm: 182502 Tablet(s) 1 TABLET(S) BY MOUTH DAILY 07/21/20152015 Inactive Generic For:ZIAC 5-6.25MG 03/31/2015 4:06:14 PM03/31/2015 3:58:36 PM meloxicam 15 mg tablet RxNorm: 574127 1 Tablet(s) PO daily 11/17/2015 Inactive glimepiride 2 mg tablet RxNorm: 618175 1 Tablet(s) PO BID 07/2011/17/2015 Inactive metformin 500 mg tablet RxNorm: 198492 Tablet(s) TAKE 1 TABLET BY MOUTH IN THE MORNING AND 1/2 TABLET IN THE EVENING 06/16/2015 11/06/2015 Inactive Generic For: GLUCOPHAGE 500MG 04/29/2015 3:46:58 PM metformin 500 mg tablet RxNorm: 776395 Tablet(s) TAKE 1 TABLET BY MOUTH IN THE MORNING AND 1/2 TABLET IN THE EVENING 05/19/2015 06/15/2015 Inactive Generic For: GLUCOPHAGE 500MG 04/29/2015 3:46:58 PM metformin 500 mg tablet RxNorm: 409349 TAKE 1/2 (ONE- HALF) TABLET BY MOUTH DAILY BY MOUTH TWICE DAILY 04/29/20152015 Inactive Generic For:GLUCOPHAGE 500MG 04/29/2015 3:46:58 PM meloxicam 15 mg tablet RxNorm: 094545 1 Tablet(s) PO daily 07/20/2015 Inactive simvastatin 20 mg tablet RxNorm: 692170 1 Tablet(s) PO daily 12/23/2015 Inactive bisoprolol 5 mg-hydrochlorothiazide 6.25 mg tablet RxNorm: 827241 1 TABLET(S) BY MOUTH DAILY 03/31/2015 07/20/2015 Inactive Generic For:ZIAC 5-6.25MG 03/31/2015 4: 06:14 PM03/31/2015 3:58:36 PM glimepiride 2 mg tablet RxNorm: 675026 1 Tablet(s) PO BID 02/0506/04/2015 Inactive increase to BID metformin 500 mg tablet RxNorm: 387566 1/2 Tablet(s) PO BID 04/20/2015 Inactive bisoprolol 5 mg-hydrochlorothiazide 6.25 mg tablet RxNorm: 826119 1 Tablet(s) PO daily 12/05/2014 12/04/2014 Inactive bisoprolol 5 mg-hydrochlorothiazide 6.25 mg tablet RxNorm: 712831 1 Tablet(s) PO daily 12/05/2014 03/30/2015 Inactive meloxicam 15 mg tablet RxNorm: 318424 1 Tablet(s) PO daily 04/201404/01/2015 Inactive Truetest Test Strips RxNorm: Miscellaneous daily 11/20/2014 11/19/2014 Inactive Truetest Test Strips RxNorm: Miscellaneous daily 11/20/2014 11/14/2015 Inactive finasteride 5 mg tablet RxNorm: 573703 1 Tablet(s) PO daily No Start Date Active tamsulosin 0.4 mg capsule RxNorm: 876613 1 Capsule(s) PO daily No Start Date Active simvastatin 20 mg tablet RxNorm: 063937 1 Tablet(s) PO daily No Start Date 04/01/2015 Inactive meloxicam 15 mg tablet RxNorm: 743941 1 Tablet(s) PO daily No Start Date 12/02/2014 Inactive metformin 500 mg tablet RxNorm: 056529 1/2 Tablet(s) PO BID No Start Date 01/20/2015 Inactive glimepiride 2 mg tablet RxNorm: 887440 1 Tablet(s) PO daily No Start Date 02/04/2015 Inactive Ziac 5 mg-6.25 mg tablet RxNorm: 581696 1 Tablet(s) PO daily No Start Date [...] Metabolic Ord15 CALCIUM 9.5 mg/dL 03/03/2018 %Hba1C Owr191 % HbA1c 59329-7 6.7 % 01/02/2018 %Hba1C Dmh916 Gluc Ave 146 mg/dL 01/02/2018 Cbc With [...] 32.7 pg 01/02/2018 Cbc With Differential Ord2 Ogle% 9.2 % 01/02/2018 Cbc With Differential Ord2 [...] 1.45 K/ul 01/02/2018 Cbc With Differential Ord2 Ogle ABS# 0.7 K/ul 01/02/2018 Cbc With Differential Ord2 Eos ABS# 0.1 K/ul 01/02/2018 Cbc With Differential Ord2 Baso ABS# 0.0 K/ul 01/02/2018 Comp Metabolic Cpd541 NA 138 mEq/L 01/02/2018 Comp Metabolic Tbl726 K 4.5 mEq/L 01/02/2018 Comp Metabolic Ezl674 CL 103 mEq/L 01/02/2018 Comp Metabolic Rpq463 CO2 28.0 mEq/L 01/02/2018 Comp Metabolic Tos544 ANION GAP 12 01/02/2018 Comp Metabolic Xgc882 GLUCOSE 186 mg/dL 01/02/2018 Comp Metabolic Lqo162 Creat 1.9 mg/dL 01/02/2018 Comp Metabolic Qkv819 eGFR 37 ml/min/1.73m2 01/02/2018 Comp Metabolic Skd746 BUN 23 mg/dL 01/02/2018 Comp Metabolic Arf832 B/C Ratio 12.2 Ratio 01/02/2018 Comp Metabolic Vxv780 CALCIUM 9.4 mg/dL 01/02/2018 Comp Metabolic Taw108 ALK PHOS 46 U/L 01/02/2018 Comp Metabolic Ffd928 AST(SGOT) 16 U/L 01/02/2018 Comp Metabolic Mwm554 ALT(SGPT) 19 U/L 01/02/2018 Comp Metabolic Nlh118 BILI T 0.6 mg/dL 01/02/2018 Comp Metabolic Yjw658 ALBUMIN 3.8 g/dL 01/02/2018 Comp Metabolic Ddz768 TPRO 6.1 g/dL 01/02/2018 Comp Metabolic Rgp945 GLOB 2.3 g/dL 01/02/2018 Comp Metabolic Tzy083 A/G Ratio 1.6 Ratio 01/02/2018 Comp Metabolic Uua072 Osmo 284 mOsmo 01/02/2018 %Hba1C Pdo972 % HbA1c 14549-4 6.5 % 08/31/2017 %Hba1C Oep420 Gluc Ave 140 mg/dL 08/31/2017 Lipid Ord30 [...] 33.0 pg 08/31/2017 Cbc With Differential Ord2 Ogle% 11.7 % 08/31/2017 Cbc With Differential Ord2 [...] 1.77 K/ul 08/31/2017 Cbc With Differential Ord2 Ogle ABS# 0.9 K/ul 08/31/2017 Cbc With Differential Ord2 Eos ABS# 0.1 K/ul 08/31/2017 Cbc With Differential Ord2 Baso ABS# 0.0 K/ul 08/31/2017 Comp Metabolic Pwb577 NA 139 mEq/L 08/31/2017 Comp Metabolic Ykm054 K 4.7 mEq/L 08/31/2017 Comp Metabolic Wvj690 CL 107 mEq/L 08/31/2017 Comp Metabolic Caw763 CO2 24.0 mEq/L 08/31/2017 Comp Metabolic Qmz164 ANION GAP 13 08/31/2017 Comp Metabolic Zsn817 GLUCOSE 158 mg/dL 08/31/2017 Comp Metabolic Ywo293 Creat 1.7 mg/dL 08/31/2017 Comp Metabolic Tri558 eGFR 43 ml/min/1.73m2 08/31/2017 Comp Metabolic Hga813 BUN 26 mg/dL 08/31/2017 Comp Metabolic Soh617 B/C Ratio 15.5 Ratio 08/31/2017 Comp Metabolic Xmn410 CALCIUM 9.5 mg/dL 08/31/2017 Comp Metabolic Hqe880 ALK PHOS 47 U/L 08/31/2017 Comp Metabolic Rsr406 AST(SGOT) 16 U/L 08/31/2017 Comp Metabolic Czp471 ALT(SGPT) 17 U/L 08/31/2017 Comp Metabolic Qnj842 BILI T 0.8 mg/dL 08/31/2017 Comp Metabolic Mox185 ALBUMIN 4.0 g/dL 08/31/2017 Comp Metabolic Pmk313 TPRO 6.4 g/dL 08/31/2017 Comp Metabolic Tdy230 GLOB 2.5 g/dL 08/31/2017 Comp Metabolic Lcs655 A/G Ratio 1.6 Ratio 08/31/2017 Comp Metabolic Kxg581 Osmo 286 mOsmo 08/31/2017 Tsh Ord6 hTSH [...] 21.9 % 04/27/2017 Cbc With Differential Ord2 Ogle% 10.5 % 04/27/2017 Cbc With Differential Ord2 [...] 1.42 K/ul 04/27/2017 Cbc With Differential Ord2 Ogle ABS# 0.7 K/ul 04/27/2017 Cbc With Differential Ord2 Eos ABS# 0.1 K/ul 04/27/2017 Cbc With Differential Ord2 Baso ABS# 0.0 K/ul 04/27/2017 %Hba1C Bgc370 % HbA1c 33365-1 6.5 % 04/27/2017 %Hba1C Yub602 Gluc Ave 140 mg/dL 04/27/2017 Lipid Ord30 CHOL 134 mg/dL 04/27/2017 Lipid Ord30 HDL 44.0 mg/dl 04/27/2017 Lipid Ord30 TRIG 89 mg/dL 04/27/2017 Lipid Ord30 LDL 72 mg/dL 04/27/2017 Lipid Ord30 C/HDL 3.0 Ratio 04/27/2017 Comp Metabolic Jjg607 NA 140 mEq/L 04/27/2017 Comp Metabolic Zgc292 K 4.3 mEq/L 04/27/2017 Comp Metabolic Rmy247 CL 105 mEq/L 04/27/2017 Comp Metabolic Fir399 CO2 26.0 mEq/L 04/27/2017 Comp Metabolic Gce171 ANION GAP 13 04/27/2017 Comp Metabolic Bur026 GLUCOSE 117 mg/dL 04/27/2017 Comp Metabolic Ltu233 Creat 1.6 mg/dL 04/27/2017 Comp Metabolic Qxy409 eGFR 45 ml/min/1.73m2 04/27/2017 Comp Metabolic Wtl260 BUN 27 mg/dL 04/27/2017 Comp Metabolic Fnp196 B/C Ratio 16.9 Ratio 04/27/2017 Comp Metabolic Yen989 CALCIUM 9.5 mg/dL 04/27/2017 Comp Metabolic Eux247 ALK PHOS 55 U/L 04/27/2017 Comp Metabolic Qdf429 AST(SGOT) 20 U/L 04/27/2017 Comp Metabolic Tpq898 ALT(SGPT) 18 U/L 04/27/2017 Comp Metabolic Ofz566 BILI T 0.4 mg/dL 04/27/2017 Comp Metabolic Dug682 ALBUMIN 4.0 g/dL 04/27/2017 Comp Metabolic Nev845 TPRO 6.5 g/dL 04/27/2017 Comp Metabolic Abm202 GLOB 2.5 g/dL 04/27/2017 Comp Metabolic Yzm449 A/G Ratio 1.6 Ratio 04/27/2017 Comp Metabolic Uta278 Osmo 286 mOsmo 04/27/2017 Total Psa Ord10 PSA 7.87 ng/mL 04/27/2017 Comp Metabolic Pvb872 NA 136 mEq/L 12/29/2016 Comp Metabolic Mzh281 K 4.5 mEq/L 12/29/2016 Comp Metabolic Fzd973 CL 103 mEq/L 12/29/2016 Comp Metabolic Whn605 CO2 24.0 mEq/L 12/29/2016 Comp Metabolic Lju942 ANION GAP 14 12/29/2016 Comp Metabolic Acw487 GLUCOSE 164 mg/dL 12/29/2016 Comp Metabolic Lrx159 Creat 1.7 mg/dL 12/29/2016 Comp Metabolic Oav543 eGFR 43 ml/min/1.73m2 12/29/2016 Comp Metabolic Yzl814 BUN 22 mg/dL 12/29/2016 Comp Metabolic Chs043 B/C Ratio 13.3 Ratio 12/29/2016 Comp Metabolic Zmi905 CALCIUM 9.5 mg/dL 12/29/2016 Comp Metabolic Eon667 ALK PHOS 58 U/L 12/29/2016 Comp Metabolic Tlg046 AST(SGOT) 16 U/L 12/29/2016 Comp Metabolic Rcw377 ALT(SGPT) 16 U/L 12/29/2016 Comp Metabolic Wwz863 BILI T 0.9 mg/dL 12/29/2016 Comp Metabolic Cpd829 ALBUMIN 3.9 g/dL 12/29/2016 Comp Metabolic Wrr212 TPRO 6.4 g/dL 12/29/2016 Comp Metabolic Bke335 GLOB 2.5 g/dL 12/29/2016 Comp Metabolic Dez088 A/G Ratio 1.5 Ratio 12/29/2016 Comp Metabolic Ifh227 Osmo 279 mOsmo 12/29/2016 Total Psa Ord10 PSA 8.44 ng/mL 11/09/2016 %Hba1C Pll649 % HbA1c 60789-5 6.4 % 11/09/2016 %Hba1C Ypw592 Gluc Ave 137 mg/dL 11/09/2016 Cbc With [...] 25.0 % 11/09/2016 Cbc With Differential Ord2 Ogle% 11.8 % 11/09/2016 Cbc With Differential Ord2 [...] 2.29 K/ul 11/09/2016 Cbc With Differential Ord2 Ogle ABS# 1.1 K/ul 11/09/2016 Cbc With Differential Ord2 Eos ABS# 0.3 K/ul 11/09/2016 Cbc With Differential Ord2 Baso ABS# 0.0 K/ul 11/09/2016 Lipid Ord30 CHOL 152 mg/dL 11/09/2016 Lipid Ord30 HDL 46.0 mg/dl 11/09/2016 Lipid Ord30 TRIG 144 mg/dL 11/09/2016 Lipid Ord30 LDL 77 mg/dL 11/09/2016 Lipid Ord30 C/HDL 3.3 Ratio 11/09/2016 Comp Metabolic Lzu581 NA 140 mEq/L 11/09/2016 Comp Metabolic Rnp590 K 4.9 mEq/L 11/09/2016 Comp Metabolic Zya445 CL 106 mEq/L 11/09/2016 Comp Metabolic Xrd346 CO2 25.0 mEq/L 11/09/2016 Comp Metabolic Xoc240 ANION GAP 14 11/09/2016 Comp Metabolic Ajv596 GLUCOSE 127 mg/dL 11/09/2016 Comp Metabolic Xwz856 Creat 1.7 mg/dL 11/09/2016 Comp Metabolic Tfg219 eGFR 43 ml/min/1.73m2 11/09/2016 Comp Metabolic Aix816 BUN 21 mg/dL 11/09/2016 Comp Metabolic Bsv047 B/C Ratio 12.7 Ratio 11/09/2016 Comp Metabolic Llx930 CALCIUM 9.5 mg/dL 11/09/2016 Comp Metabolic Sok373 ALK PHOS 45 U/L 11/09/2016 Comp Metabolic Maw097 AST(SGOT) 18 U/L 11/09/2016 Comp Metabolic Xsl923 ALT(SGPT) 16 U/L 11/09/2016 Comp Metabolic Cak434 BILI T 0.6 mg/dL 11/09/2016 Comp Metabolic Xcn608 ALBUMIN 3.9 g/dL 11/09/2016 Comp Metabolic Ssm355 TPRO 6.4 g/dL 11/09/2016 Comp Metabolic Yxq814 GLOB 2.5 g/dL 11/09/2016 Comp Metabolic Arl493 A/G Ratio 1.5 Ratio 11/09/2016 Comp Metabolic Mik018 Osmo 284 mOsmo 11/09/2016 Tsh Ord6 hTSH [...] 15.1 % 03/10/2016 Cbc With Differential Ord2 Ogle% 10.6 % 03/10/2016 Cbc With Differential Ord2 [...] 1.48 K/ul 03/10/2016 Cbc With Differential Ord2 Ogle ABS# 1.0 K/ul 03/10/2016 Cbc With Differential Ord2 Eos ABS# 0.1 K/ul 03/10/2016 Cbc With Differential Ord2 Baso ABS# 0.0 K/ul 03/10/2016 %Hba1C Eln218 % HbA1c 86664-1 6.6 % 03/10/2016 %Hba1C Qhd805 Gluc Ave 143 mg/dL 03/10/2016 Comp Metabolic Bpb414 NA 138 mEq/L 03/10/2016 Comp Metabolic Jcd575 K 4.9 mEq/L 03/10/2016 Comp Metabolic Ttw099 CL 102 mEq/L 03/10/2016 Comp Metabolic Mvb206 CO2 28.0 mEq/L 03/10/2016 Comp Metabolic Wau971 ANION GAP 13 03/10/2016 Comp Metabolic Kcw617 GLUCOSE 135 mg/dL 03/10/2016 Comp Metabolic Tkj489 Creat 1.5 mg/dL 03/10/2016 Comp Metabolic Wes444 eGFR 51 ml/min/1.73m2 03/10/2016 Comp Metabolic Act034 BUN 28 mg/dL 03/10/2016 Comp Metabolic Ovz700 B/C Ratio 19.3 Ratio 03/10/2016 Comp Metabolic Eda585 CALCIUM 9.8 mg/dL 03/10/2016 Comp Metabolic Jpx526 ALK PHOS 52 U/L 03/10/2016 Comp Metabolic Sru780 AST(SGOT) 19 U/L 03/10/2016 Comp Metabolic Kkc408 ALT(SGPT) 22 U/L 03/10/2016 Comp Metabolic Dct575 BILI T 0.5 mg/dL 03/10/2016 Comp Metabolic Brs879 ALBUMIN 4.4 g/dL 03/10/2016 Comp Metabolic Slq269 TPRO 6.8 g/dL 03/10/2016 Comp Metabolic Leo759 GLOB 2.4 g/dL 03/10/2016 Comp Metabolic Wss461 A/G Ratio 1.8 Ratio 03/10/2016 Comp Metabolic Wej894 Osmo 283 mOsmo 03/10/2016 Comp Metabolic Xji465 NA 136 mEq/L 11/06/2015 Comp Metabolic Fjl628 K 4.0 mEq/L 11/06/2015 Comp Metabolic Ham464 CL 102 mEq/L 11/06/2015 Comp Metabolic Yeq952 CO2 27.0 mEq/L 11/06/2015 Comp Metabolic Gzb166 ANION GAP 11 11/06/2015 Comp Metabolic Qwr530 GLUCOSE 144 mg/dL 11/06/2015 Comp Metabolic Esq581 Creat 1.2 mg/dL 11/06/2015 Comp Metabolic Lcw552 eGFR 64 ml/min/1.73m2 11/06/2015 Comp Metabolic Bcv477 BUN 23 mg/dL 11/06/2015 Comp Metabolic Zhy831 B/C Ratio 19.3 Ratio 11/06/2015 Comp Metabolic Nlk952 CALCIUM 10.2 mg/dL 11/06/2015 Comp Metabolic Kri759 ALK PHOS 52 U/L 11/06/2015 Comp Metabolic Uso042 AST(SGOT) 16 U/L 11/06/2015 Comp Metabolic Piw257 ALT(SGPT) 19 U/L 11/06/2015 Comp Metabolic Tpj764 BILI T 0.7 mg/dL 11/06/2015 Comp Metabolic Dxd272 ALBUMIN 4.3 g/dL 11/06/2015 Comp Metabolic Lft396 TPRO 6.8 g/dL 11/06/2015 Comp Metabolic Oce376 GLOB 2.5 g/dL 11/06/2015 Comp Metabolic Smd713 A/G Ratio 1.7 Ratio 11/06/2015 Comp Metabolic Dxf714 Osmo 278 mOsmo 11/06/2015 Lipid Ord30 CHOL 152 mg/dL 11/06/2015 Lipid Ord30 HDL 48.0 mg/dl 11/06/2015 Lipid Ord30 TRIG 79 mg/dL 11/06/2015 Lipid Ord30 LDL 88 mg/dL 11/06/2015 Lipid Ord30 C/HDL 3.2 Ratio 11/06/2015 %Hba1C Pwn799 % HbA1c 51739-3 7.3 % 11/06/2015 %Hba1C Mvh456 Gluc Ave 163 mg/dL 11/06/2015 Cbc With [...] 32.8 pg 06/05/2015 Cbc With Differential Ord2 Ogle% 9.8 % 06/05/2015 Cbc With Differential Ord2 [...] 1.97 K/ul 06/05/2015 Cbc With Differential Ord2 Ogle ABS# 0.9 K/ul 06/05/2015 Cbc With Differential Ord2 Eos ABS# 0.1 K/ul 06/05/2015 Cbc With Differential Ord2 Baso ABS# 0.0 K/ul 06/05/2015 Cbc With Differential Ord2 New Analyzer Notice Please note new ref ranges starting 04-16-2015 due to implemntation of new five part differential hematolgy analyzer. 06/05/2015 %Hba1C Clr761 % HbA1c 66220-4 7.1 % 05/08/2015 %Hba1C Ybr113 Gluc Ave 157 mg/dL 05/08/2015 Microalbumin Bob017 MicroAlb 1.2 mg/dL 05/01/2015 Cbc With Differential [...] 33.1 pg 04/30/2015 Cbc With Differential Ord2 Ogle% 11.2 % 04/30/2015 Cbc With Differential Ord2 [...] 2.41 K/ul 04/30/2015 Cbc With Differential Ord2 Ogle ABS# 0.9 K/ul 04/30/2015 Cbc With Differential [...] hTSH II 1.35 uIU/mL 04/30/2015 Comp Metabolic Ahl345 NA 136 mEq/L 04/30/2015 Comp Metabolic Dyh203 K 4.5 mEq/L 04/30/2015 Comp Metabolic Khd921 CL 100 mEq/L 04/30/2015 Comp Metabolic Dnz639 CO2 28.0 mEq/L 04/30/2015 Comp Metabolic Xus041 ANION GAP 13 04/30/2015 Comp Metabolic Puj172 GLUCOSE 162 mg/dL 04/30/2015 Comp Metabolic Cno293 Creat 1.2 mg/dL 04/30/2015 Comp Metabolic Ehe329 eGFR 62 ml/min/1.73m2 04/30/2015 Comp Metabolic Jnt018 BUN 21 mg/dL 04/30/2015 Comp Metabolic Ljs990 B/C Ratio 17.4 Ratio 04/30/2015 Comp Metabolic Uth286 CALCIUM 9.9 mg/dL 04/30/2015 Comp Metabolic Srh737 ALK PHOS 51 U/L 04/30/2015 Comp Metabolic Mlf575 AST(SGOT) 18 U/L 04/30/2015 Comp Metabolic Arc240 ALT(SGPT) 23 U/L 04/30/2015 Comp Metabolic Hlz027 BILI T 0.5 mg/dL 04/30/2015 Comp Metabolic Oaa502 ALBUMIN 4.2 g/dL 04/30/2015 Comp Metabolic Rlz787 TPRO 6.9 g/dL 04/30/2015 Comp Metabolic Vyg096 GLOB 2.7 g/dL 04/30/2015 Comp Metabolic Mnl162 A/G Ratio 1.6 Ratio 04/30/2015 Comp Metabolic Zgq376 Osmo 278 mOsmo 04/30/2015 Metabolic Ord15 NA [...] Differential Ord2 RDW 13.6 % 01/28/2015 %Hba1C Cao226 % HbA1c 36641-3 7.3 % 01/28/2015 %Hba1C Gdx446 Gluc Ave 163 mg/dL 01/28/2015 %Hba1C Rjc283 % HbA1c 86613-8 7.8 % 10/24/2014 %Hba1C Esx765 Gluc Ave 177 mg/dL 10/24/2014 Cbc With [...] Ord2 RDW 13.7 % 10/23/2014 Comp Metabolic Qad476 NA 135 mEq/L 10/23/2014 Comp Metabolic Tex800 K 4.4 mEq/L 10/23/2014 Comp Metabolic Duv310 CL 99 mEq/L 10/23/2014 Comp Metabolic Okc853 CO2 31.0 mEq/L 10/23/2014 Comp Metabolic Wvd783 ANION GAP 9 10/23/2014 Comp Metabolic Zxe689 GLUCOSE 203 mg/dL 10/23/2014 Comp Metabolic Jxr675 Creat 1.1 mg/dL 10/23/2014 Comp Metabolic Bns019 eGFR 72 ml/min/1.73m2 10/23/2014 Comp Metabolic Nvs457 BUN 19 mg/dL 10/23/2014 Comp Metabolic Mde157 B/C Ratio 17.8 Ratio 10/23/2014 Comp Metabolic Vzb109 CALCIUM 10.2 mg/dL 10/23/2014 Comp Metabolic Etw890 ALK PHOS 55 U/L 10/23/2014 Comp Metabolic Cub708 AST(SGOT) 22 U/L 10/23/2014 Comp Metabolic Kno858 ALT(SGPT) 34 U/L 10/23/2014 Comp Metabolic Gfo664 BILI T 0.8 mg/dL 10/23/2014 Comp Metabolic Uyq712 ALBUMIN 4.3 g/dL 10/23/2014 Comp Metabolic Uwr757 TPRO 6.7 g/dL 10/23/2014 Comp Metabolic Slc144 GLOB 2.4 g/dL 10/23/2014 Comp Metabolic Lma567 A/G Ratio 1.8 Ratio 10/23/2014 Comp Metabolic Dso921 Osmo 278 mOsmo 10/23/2014 Review of Systems [...] inspection of skin Location: face 03/07/2018 left gnosticist nodular lesion treated with cryotherapy x 3 [...] -4: G0439 03/20/2018 DESTRUCT PREMALG LESION CPT-4: 52425 03/07/2018 DESTRUCT PREMALG LES 2-14 CPT-4: 94440 03/07/2018 PPPS, SUBSEQ VISIT CPT -4: G0439 03/15/2017 PPPS, SUBSEQ VISIT CPT -4: G0439 03/12/2016 DESTRUCT PREMALG LESION CPT-4: 32213 10/23/2014 DESTRUCT PREMALG LES 2-14 CPT-4: 35785 10/23/2014 Vital Signs Date Vital 03/20/2018 Blood Pressure 1: 140/62 Code : 8480-6 BMI: 29.8 Code : 53754-2 Heart Rate 1 : 59 bpm Height: 5'5" SpO2: 96% Weight: 179 lbs 03/07/2018 Blood Pressure 1: 160/80 Code : 8480-6 BMI: 29.8 Code : 36663-1 Heart Rate 1 : 56 bpm Height: 5'5" SpO2: 96% Weight: 179 lbs 01/30/2018 Blood Pressure 1: 144/64 Code : 8480-6 Blood Pressure 2: 150/64 Code: 8480-6 BMI: 29.6 Code: 39973-5 Heart Rate 1: 61 bpm Height: 5'5" SpO2: 98% Weight: 178 lbs 09/07/2017 Blood Pressure 1: 148/68 Code : 8480-6 BMI: 29.6 Code : 45799-2 Heart Rate 1 : 60 bpm Height: 5'5" SpO2: 98% Weight: 178 lbs 05/05/2017 Blood Pressure 1: 122/64 Code : 8480-6 BMI: 28.3 Code : 08291-2 Heart Rate 1 : 56 bpm Height: 5'5" SpO2: 97% Weight: 170 lbs 2017 BMI: 29.1 Code: 53582-7 Height: 5'5" Weight: 175 lbs 03/15/2017 Blood Pressure 1: 136/76 Code : 8480-6 BMI: 29.1 Code : 53525-0 Heart Rate 1 : 82 bpm Height: 5'5" SpO2: 98% Weight: 175 lbs 03/03/2017 BMI: 29.1 Code: 45082-3 Height: 5'5" Weight: 175 lbs 02/02/2017 Blood Pressure 1: 132/60 Code : 8480-6 BMI: 28.6 Code : 44341-5 Heart Rate 1 : 64 bpm Height: 5'5" SpO2: 99% Weight: 172 lbs 01/04/2017 Blood Pressure 1: 138/70 Code : 8480-6 BMI: 29.6 Code : 76157-1 Heart Rate 1 : 59 bpm Height: 5'5" SpO2: 99% Weight: 178 lbs 11/16/2016 Blood Pressure 1: 150/70 Code : 8480-6 BMI: 30.6 Code : 66275-5 Heart Rate 1 : 68 bpm Height: 5'5" SpO2: 94% Weight: 184 lbs 07/19/2016 Blood Pressure 1: 150/70 Code : 8480-6 Blood Pressure 2: 154/70 Code: 8480-6 BMI: 31.0 Code: 20403-3 Heart Rate 1: 61 bpm Height: 5'5" SpO2: 98% Weight: 186 lbs 03/12/2016 Blood Pressure 1: 156/80 Code : 8480-6 BMI: 30.5 Code : 13182-2 Heart Rate 1 : 60 bpm Height: 5'5" SpO2: 98% Waist Measure (cm): 91 cm Weight: 183 lbs 03/10/2016 Blood Pressure 1: 158/78 Code : 8480-6 Blood Pressure 1: 158/78 Code: 8480-6 BMI: 30.5 Code: 66796-0 Heart Rate 1: 61 bpm Height: 5'5" SpO2: 98% Weight: 183 lbs 11/06/2015 Blood Pressure 1: 156/80 Code : 8480-6 Blood Pressure 1: 138/70 Code: 8480-6 BMI: 30.1 Code: 42655-8 Heart Rate 1: 64 bpm Height: 5'5" SpO2: 98% Weight: 181 lbs 09/09/2015 Blood Pressure 1: 126/68 Code : 8480-6 08/26/2015 Blood Pressure 1: 168/74 Code : 8480-6 Blood Pressure 1: 162/76 Code: 8480-6 BMI: 29.8 Code: 65736-6 Heart Rate 1: 61 bpm Height: 5'5" SpO2: 98% Weight: 179 lbs 07/29/2015 Blood Pressure 1: 166/76 Code : 8480-6 BMI: 30.0 Code : 38824-1 Heart Rate 1 : 75 bpm Height: 5'5" SpO2: 99% Weight: 180 lbs 04/29/2015 Blood Pressure 1: 130/70 Code : 8480-6 Blood Pressure 1: 132/76 Code: 8480-6 BMI: 30.8 Code: 85984-2 Heart Rate 1: 64 bpm Height: 5'5" SpO2: 99% Weight: 185 lbs 10/23/2014 Blood Pressure 1: 140/76 Code : 8480-6 BMI: 30.5 Code : 58521-2 Heart Rate 1 : 63 bpm Height: [...] data Encounters Encounter Performer Location Codes Date ([id number]) 56619 EST. PATIENT, LEVEL IV Diagnosis: Essential (primary) hypertension[ICD10: I10] Diagnosis: Chronic kidney disease, stage 3 (moderate)[ICD10: N18.3] Diagnosis: Type 2 diabetes mellitus with hyperglycemia[ICD10: E11.65] [facility] CPT-4: 11594 03/07/2018 ([id number]) 95444 EST. PATIENT, LEVEL IV Diagnosis: Type 2 diabetes mellitus with hyperglycemia[ICD10: E11.65] Diagnosis: Chronic kidney disease, stage 3 (moderate)[ICD10: N18.3] Diagnosis: Essential (primary) hypertension[ICD10: I10] [facility] CPT-4: 19483 01/30/2018 ([id number]) 71632 EST. PATIENT, LEVEL IV Diagnosis: Essential (primary) hypertension[ICD10: I10] Diagnosis: Type 2 diabetes mellitus without complications[ICD10: E11.9] Diagnosis: Malignant neoplasm of prostate[ICD10: C61] Diagnosis: Chronic kidney disease, stage 3 (moderate)[ICD10: N18.3] Virginie Isaac MD [facility] CPT-4: 48905 09/07/2017 ([id number]) 60505 EST. PATIENT, LEVEL IV Diagnosis: Type 2 diabetes mellitus without complications[ICD10: E11.9] Diagnosis: Essential (primary) hypertension[ICD10: I10] Diagnosis: Changes in skin texture[ICD10: R23.4] Diagnosis: Chronic kidney disease, stage 3 (moderate)[ICD10: N18.3] Virginie Isaac MD [facility] CPT-4: 89027 05/05/2017 ([id number]) Miscellaneous no charge Diagnosis: Abnormal weight loss[ICD10: R63.4] Virginie Isaac MD [facility] CPT-4: 00250 2017 ([id number]) Miscellaneous no charge Diagnosis: Abnormal weight loss[ICD10: R63.4] Virginie Isaac MD [facility] CPT-4: 36947 03/03/2017 ([id number]) 18708 EST. PATIENT, LEVEL III Diagnosis: Type 2 diabetes mellitus with hyperglycemia[ICD10: E11.65] Diagnosis: Essential (primary) hypertension[ICD10: I10] Virginie Isaac MD [facility] CPT-4: 78185 02/02/2017 ([id number]) 34361 EST. PATIENT, LEVEL IV Diagnosis: Type 2 diabetes mellitus with hyperglycemia[ICD10: E11.65] Diagnosis: Essential (primary) hypertension[ICD10: I10] Diagnosis: Chronic kidney disease, stage 3 (moderate)[ICD10: N18.3] Virginie Isaac MD [facility] CPT-4: 31118 01/04/2017 ([id number]) 79674 EST. PATIENT, LEVEL IV Diagnosis: Type 2 diabetes mellitus with hyperglycemia[ICD10: E11.65] Diagnosis: Essential (primary) hypertension[ICD10: I10] Diagnosis: Chronic kidney disease, stage 3 (moderate)[ICD10: N18.3] Diagnosis: Elevated prostate specific antigen [PSA][ICD10: R97.20] Virginie Isaac MD [facility] CPT-4: 50644 11/16/2016 ([id number]) 01335 EST. PATIENT, LEVEL IV Diagnosis: Essential (primary) hypertension[ICD10: I10] Diagnosis: Type 2 diabetes mellitus with hyperglycemia[ICD10: E11.65] Diagnosis: Mixed hyperlipidemia[ICD10: E78.2] Virginie Isaac MD [facility] CPT-4: 57016 07/19/2016 ([id number]) 28920 EST. PATIENT, LEVEL IV Diagnosis: Type 2 diabetes mellitus with hyperglycemia[ICD10: E11.65] Diagnosis: Essential (primary) hypertension[ICD10: I10] Diagnosis: Mixed hyperlipidemia[ICD10: E78.2] Virginie Isaac MD [facility] CPT-4: 99635 03/10/2016 ([id number]) 95963 EST. PATIENT, LEVEL III Diagnosis: Essential (primary) hypertension[ICD10: I10] Diagnosis: Type 2 diabetes mellitus with hyperglycemia[ICD10: E11.65] Diagnosis: Hyperlipidemia, unspecified[ICD10: E78.5] Virginie Isaac MD [facility] CPT-4: 14179 11/06/2015 ([id number]) Miscellaneous no charge Diagnosis: Essential (primary) hypertension[ICD10: I10] Scarlett Isaac MD [facility] CPT-4: 12948 09/09/2015 ([id number]) 78360 EST. PATIENT, LEVEL III Diagnosis: Essential (primary) hypertension[ICD10: I10] Diagnosis: Other skin changes[ICD10: R23.8] Virginie Isaac MD [facility] CPT-4: 02077 08/26/2015 ([id number]) 84222 EST. PATIENT, LEVEL IV Diagnosis: Essential (primary) hypertension[ICD10: I10] Diagnosis: Unspecified amblyopia, right eye[ICD10: H53.001] Diagnosis: Other skin changes[ICD10: R23.8] Virginie Isaac MD [facility] CPT-4: 97194 07/29/2015 ([id number]) 53528 EST. PATIENT, LEVEL IV Diagnosis: Type 2 diabetes mellitus with hyperglycemia[ICD10: E11.65] Diagnosis: Essential (primary) hypertension[ICD10: I10] Diagnosis: Hyperlipidemia, unspecified[ICD10: E78.5] Virginie Isaac MD [facility] CPT-4: 97664 04/29/2015 ([id number]) OFFICE VISIT, NEW - LEVEL 4 Diagnosis: ESSENTIAL HYPERTENSION[ICD9: 401.9] Diagnosis: DIABETES TYPE II[ICD9: 250.00] Diagnosis: ACTINIC KERATOSIS[ICD9: 702.0] Diagnosis: Impacted cerumen[ICD9: 380.4] [facility] CPT- 4: 20269 10/23/2014 Plan of Care Planned Activity Notes [...] on posterior scalp and one on left gnosticist. 03/07/2018 Appointment: [facility] [place] (15 min) Moderate 03/07/2018 Patient Education: Patient [...] recommended that he needs to see a Hydraulic Jack Mechanic, but Suleman is not interested at this time. He has agreed to have repeat bmp in one month off of the hctz and to start on renal diet. Prostate cancer - continue with plans to be seen by Dr. Modi at the cancer center. 01/30/2018 Appointment: [facility] [place] [place] (15 min) Moderate 01/30/2018 Patient Education: Patient Medication Summary Completed 01/30/2018 Appointment: Virginie Isaac WPtel: [phone] [facility] (15 min) Moderate 01/10/2018 Visit Plan: Diabetes [...] pt is not interested in seeing a Hydraulic Jack Mechanic as has been recommended to patient. 09/07/2017 Appointment: Marlin [facility] [place] (15 min) Moderate 09/07/2017 Patient Education: Patient [...] pt is not interested in seeing a Hydraulic Jack Mechanic as has been recommended to patient. Elevated PSA -pt seeing Dr. Harrison. 05/05/2017 Appointment: Virginie Isaac WPtel: [phone] [facility] (15 min) Moderate 05/05/2017 Patient Education: Patient Medication Summary Completed 05/05/2017 [facility]ment[facility] (15 min) Moderate 04/14/2017 Appointment: Nurse Visit [...] care surrogate. 03/15/2017 Appointment: [facility] [place] [place] [address] - Annual Wellness Visit 03/15/2017 Patient Education: [...] at home. 02/02/2017 Appointment: Virginie Isaac WPtel: [facility] (15 min) Moderate 02/02/2017 Patient Education: Patient [...] Hypertension Completed 01/04/2017 Appointment: Virginie Isaac WPtel: [facility] (15 min) Moderate 12/23/2016 Appointment: Virginie Isaac WPtel: [address] [place], [place] [phone] (15 min) Moderate 12/22/2016 Visit Plan: Hypertension [...] orange juice. 11/16/2016 Appointment: Virginie Isaac WPtel: [facility] (15 min) Moderate 11/16/2016 Patient [...] to medications. 07/19/2016 Appointment: Virginie Isaac WPtel: [address] [place], [place] [phone] (15 min) Moderate 07/19/2016 Patient Education: Patient Medication Summary Completed 07/19/2016 Patient Education: Obesity Completed 07/19/2016 Patient Education: Hypertension Completed 07/19/2016 Appointment: Virginie Isaac WPtel: [address] [place], [place] [phone] [place] (15 min) Moderate 07/06/2016 Visit Plan: [...] care surrogate. 03/12/2016 Appointment: Niecy Sullivan WPtel: [address] [facility] [place] [address] - Annual Wellness Visit 03/12/2016 Patient Education: [...] at hs 03/10/2016 Appointment: Virgin[facility]el: [facility] [place] [place] (15 min) Moderate 03/10/2016 Patient Education: [...] Obesity Completed 11/06/2015 Appointment: Niecy Sullivan WPtel: [address] [place], [place] [phone] (30 min) Complex 10/27/2015 Appointment: Nurse Visit [...] have repeat treatment - one on left gnosticist and one on posterior scalp. 08/26/2015 Patient Education: Patient Medication Summary Completed 08/26/2015 Patient Education: Hypertension Completed 08/26/2015 Referral: Tariq Ramirez WPtel: [address] [place], [place] [phone] Referral Completed 08/05/2015 Visit Plan: Hypertension - [...] of efudex. 07/29/2015 Appointment: Virginie Isaac WPtel: [address] [place], [place] [phone] (15 min) Moderate 07/29/2015 Patient Education: Patient Medication Summary Completed 07/29/2015 Patient Education: Obesity Completed 07/29/2015 Patient Education: Hypertension Completed 07/29/2015 Care Plan: Referral Order SNOMED-CT : [id number] Pending 07/29/2015 Patient Education: Patient Medication Summary [...] Care Plan: COMPLETE CBC AUTOMATED LOINC : 42582-9 Ordered 04/29/2015 Care Plan: MICROALBUMIN QUANTITATIVE LOINC : 58077-7 Ordered 04/29/2015 Appointment: (15 min) Moderate 03/31/2015 Appointment: Virginie Isaac WPtel: [address] [place], [place] [phone] (15 min) Moderate 01/22/2015 Visit Plan: Hypertension [...] office visit. 10/23/2014 Appointment: Virginie Isaac WPtel: [address] [place], [place] [address] [place] (S) New Patient 10/23/2014 Patient Education: Patient Medication Summary Completed 10/23/2014 Patient Education: Hypertension Completed 10/23/2014 Referral: Tariq Rmairez WPtel: [address] [place], [place] [address] Referral Appointment Requested Instructions Comment . Diabetes [...] recommended that he needs to see a Hydraulic Jack Mechanic, but Suleman is not interested at this [...] pt is not interested in seeing a Hydraulic Jack Mechanic as has been recommended to patient. use [...] symptoms improved after stopping hctz. . Hypertension -at home, blood pressure is [...] on posterior scalp and one on left gnosticist. . Hypertension - uncontrolled - the patient's [...] have repeat treatment - one on left gnosticist and one on posterior scalp. . Medicare [...] for health care surrogate. . Hypertension - well controlled - continue [...] pt is not interested in seeing a Hydraulic Jack Mechanic as has been recommended to patient. Elevated [...]
[2018-05-05] MEDS ORDERED: LIDOCAINE PF 1% 2 ML AMP IR PRN (10:45)
[2018-05-05] MEDS ORDERED: POVIDONE (BETADINE) OPHTH SOLN 5% 30 ML OP ONE (10:45)
[2018-05-05] MEDS ORDERED: MOXIFLOXACIN OPHTH SOLN 5 MG/ML 0.3 ML SYRINGE OP ONE (10:45)
[2018-05-05] MEDS ORDERED: TIMOLOL MALEATE 0.5% 5 ML (TIMOPTIC) BTL OU PRN (10:45)
--- OUTSIDE RECORDS SUMMARY | 2018-05-05 10:58 | XMS REPORT | Continuity of Care Document ---
Author Author [facility] Organization [facility] Address Unknown Phone Unavailable Allergies Active Description Code Type Severity Reaction Onset Reported/Identified Relationship to Patient Clinical Status Yes No Known Drug Allergies [id number] Drug Allergy Unknown N/A 03/09/2018 Medications There [...] MD Ot I10 ESSENTIAL (PRIMARY) HYPERTENSION 05/10/2017 SAHCI KNIGHT DO Ot C44.629 SQUAMOUS CELL CARCINOMA SKIN/ LEFT UPPER 05/10/2017 SACHI KNIGHT DO D Ot E11.9 TYPE 2 DIABETES MELLITUS WITHOUT COMPLIC 05/10/2017 SACHI KNIGHT DO Ot I10 ESSENTIAL (PRIMARY) HYPERTENSION 05/10/2017 SACHI KNIGHT DO D Ot 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 05/10/2017 SACHI KNIGHT DO Ot Z79.899 OTHER ALF (CURRENT) DRUG THERAPY 05/14/2017 SACHI KNIGHT DO D Ot C44.629 SQUAMOUS CELL CARCINOMA SKIN/ LEFT UPPER 05/14/2017 SACHI KNIGHT DO D Ot E11.9 TYPE 2 DIABETES MELLITUS WITHOUT COMPLIC 05/14/2017 GRACE KNIGHT DOTT D Ot I10 ESSENTIAL (PRIMARY) HYPERTENSION 05/14/2017 SACHI KNIGHT DO D Ot 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 05/14/2017 SACHI KNIGHT DO Ot Z79.899 OTHER ALF (CURRENT) DRUG THERAPY 05/15/2017 SACHI KINGHT DO Ot L98.9 DISORDER OF THE SKIN [...] 05/21/2017 SACHI KNIGHT DO Ot Z79.899 OTHER PBX SUPERVISOR (CURRENT) DRUG THERAPY 07/21/2017 JAZMINE AVILEZ MD [...] BACTER 08/03/2017 JAZMINE AVILEZ MD Ot Z79.84 ALF (CURRENT) USE OF ORAL HYPOGLYC 08/10/2017 JAZMINE [...] BACTER 08/10/2017 JAZMINE AVILEZ MD Ot Z79.84 ALF (CURRENT) USE OF ORAL HYPOGLYC 08/15/2017 JAZMINE [...] Ot 599.70 HEMATURIA, UNSPECIFIED 02/07/2018 RANDI VIGIL MD Ot E11.65 TYPE 2 DIABETES MELLITUS WITH HYPERGLYCE 02/07/2018 RANDI VIGIL MD Ot E66.9 OBESITY, UNSPECIFIED 02/07/2018 RANDI VIGIL MD Ot I10 ESSENTIAL (PRIMARY) HYPERTENSION 02/07/2018 JAZMINE AVILEZ MD, Ot 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 LG INT W/O PERFORATION OR AB 02/07/2018 JAZMINE AVILEZ MD Ot N20.0 CALCULUS OF KIDNEY 02/07/2018 JAZMINE AVILEZ MD Ot R91.8 OTHER NONSPECIFIC ABNORMAL FINDING OF CHERYL 02/07/2018 JAZMINE AVILEZ MD Ot Z85.46 PERSONAL HISTORY OF MALIGNANT NEOPLASM O 03/09/2018 RANDI VIGIL MD, Ot E11.65 TYPE 2 DIABETES MELLITUS WITH HYPERGLYCE 03/09/2018 RANDI VIGIL MD, Ot E66.9 OBESITY, UNSPECIFIED 03/09/2018 RANDI VIGIL MD, Ot I10 ESSENTIAL (PRIMARY) HYPERTENSION 03/09/2018 JAZMINE AVILEZ MD Ot Z01.818 ENCOUNTER FOR OTHER PREPROCEDURAL EXAMIN 03/10/2018 JAZMINE AVILEZ MD Ot Z01.818 ENCOUNTER FOR OTHER PREPROCEDURAL EXAMIN 03/14/2018 JAZMINE AVILEZ MD Ot C61 MALIGNANT NEOPLASM OF PROSTATE 03/14/2018 JAZMINE AVILEZ MD Ot E11.9 TYPE 2 DIABETES MELLITUS WITHOUT COMPLIC 03/14/2018 JAZMINE AVILEZ MD Ot I10 ESSENTIAL (PRIMARY) HYPERTENSION 03/14/2018 JAZIMNE AVILEZ MD Ot Z79.84 ALF (CURRENT) USE OF ORAL HYPOGLYC 03/14/2018 JAZMINE AVILEZ MD Ot Z79.899 OTHER ALF (CURRENT) DRUG THERAPY 03/17/2018 JAZMINE AVILEZ MD Ot C61 MALIGNANT NEOPLASM OF PROSTATE 03/17/2018 JAZMINE AVILEZ MD Ot E11.9 TYPE 2 DIABETES MELLITUS WITHOUT COMPLIC 03/17/2018 JAZMINE AVILEZ MD Ot I10 ESSENTIAL (PRIMARY) HYPERTENSION 03/17/2018 JAZMINE AVILEZ MD Ot Z79.84 ALF (CURRENT) USE OF ORAL HYPOGLYC 03/17/2018 JAZMINE AVILEZ MD, Ot Z79.899 OTHER ALF (CURRENT) DRUG THERAPY 03/20/2018 JAZMINE AVILEZ MD Ot C61 MALIGNANT NEOPLASM OF PROSTATE 03/20/2018 JAZMINE AVILEZ MD Ot E11.9 TYPE 2 DIABETES MELLITUS WITHOUT COMPLIC 03/20/2018 JAZMINE AVILEZ MD Ot I10 ESSENTIAL (PRIMARY) HYPERTENSION 03/20/2018 JAZMINE AVILEZ MD Ot Z79.84 PBX SUPERVISOR (CURRENT) USE OF ORAL HYPOGLYC 03/20/2018 JAZMINE AVILEZ MD Ot Z79.899 OTHER PBX SUPERVISOR (CURRENT) DRUG THERAPY 03/31/2018 GREGORY BECERRA MD Ot C61 MALIGNANT NEOPLASM OF PROSTATE 03/31/2018 GREGORY BECERRA MD Ot E11.9 TYPE 2 DIABETES MELLITUS WITHOUT COMPLIC 03/31/2018 GREGORY BECERRA MD E Ot I10 ESSENTIAL (PRIMARY) HYPERTENSION 03/31/2018 GREGORY BECERRA MD Ot N40.0 BENIGN PROSTATIC HYPERPLASIA WITHOUT LOW 03/31/2018 GREGORY BECERRA MD Ot Z79.84 PBX SUPERVISOR (CURRENT) USE OF ORAL HYPOGLYC 04/13/2018 GREGORY BECERRA MD Ot C61 MALIGNANT NEOPLASM OF PROSTATE 04/13/2018 GREGORY BECERRA MD Ot E11.9 TYPE 2 DIABETES MELLITUS WITHOUT COMPLIC 04/13/2018 GREGORY BECERRA MD Ot I10 ESSENTIAL (PRIMARY) HYPERTENSION 04/13/2018 GREGORY BECERRA MD Ot N40.0 BENIGN PROSTATIC HYPERPLASIA WITHOUT LOW 04/13/2018 GREGORY BECERRA MD Ot Z79.84 PBX SUPERVISOR (CURRENT) USE OF ORAL HYPOGLYC 05/02/2018 KARYNA RAMIREZ MD Ot Z01.818 ENCOUNTER FOR OTHER PREPROCEDURAL [...] measurement by glucometer (mass/volume) 101 mg/dL 70-110 [id number] - 08/12/17 11:03 Serum or plasma urea nitrogen measurement (mass/volume) 25 mg/dL 7-18 Serum or plasma creatinine measurement (mass/volume) 1.91 mg/dL 0.60-1.30 Serum or plasma urea nitrogen/creatinine mass ratio 13 NRG Serum or plasma creatinine measurement with calculation of estimated glomerular filtration rate 35 NRG Methicillin resistant Staphylococcus aureus (MRSA) screening culture - 06:25 Methicillin resistant Staphylococcus aureus (MRSA) screening culture NEG NRG Encounters ACCT No. Visit Date/Time Discharge Status Pt. Type Provider Facility Loc./Unit Complaint [id number] 05/02/2018 06:25:00 05/02/2018 15:24:00 DIS Outpatient KARYNA RAMIREZ MD [facility] PREOP RIGHT CATARACT [id number] 03/14/2018 05:58:00 03/14/2018 10:25:00 DIS Outpatient JAZMINE AVILEZ MD [facility] PROSTATE CANCER [id number] 03/09/2018 05:59:00 03/09/2018 13:00:00 DIS Outpatient JAZMINE AVILEZ MD [facility] PREOP PROSTATE CANCER [id number] 08/12/2017 10:41:00 08/12/2017 23:59:59 CLS Outpatient JAZMINE AVILEZ MD [facility] RAD CA OF PROSTATE [id number] 08/08/2017 10:58:00 08/08/2017 23:59:59 CLS Preadmit JAZMINE AVILEZ MD [facility] RAD CA OF PROSTATE [id number] 08/03/2017 06:00:00 08/03/2017 09:25:00 DIS Outpatient JAZMINE AVILEZ MD [facility] BPH, ELEVATED PSA [id number] 07/28/2017 12:50:00 07/28/2017 13:04:00 DIS Outpatient JAZMINE AVILEZ MD [facility] PREOP CYSTO, PROSTATE BIOPSY [id number] 05/10/2017 13:05:00 05/10/2017 16:25:00 DIS Outpatient SACHI KNIGHT DO [facility] SKIN LESION LEFT ARM X2 [id number] 05/09/2017 05:50:00 05/09/2017 10:56:00 DIS Outpatient SACHI KNIGHT DO [facility] PREOP SKIN LESION LEFT ARM X2 [id number] 04/25/2017 15:00:00 04/25/2017 23:59:59 CLS [facility]read[facility] [id number] 01/24/2017 14:42:00 04/24/2017 00:01:00 DIS Out[facility] [id number] 02/06/2013 14:55:00 02/06/2013 23:59:59 CLS Outpatient JAZMINE AVILZE MD [facility] RAD HEMATURIA [id number] 05/19/2018 11:30:00 PEN Preadmit KARYNA RAMIREZ MD [facility] CATARACT LEFT EYE [id number] 05/05/2018 10:36:00 ACT Outpatient KARYNA RAMIREZ MD [facility] RIGHT CATARACT [id number] 05/04/2018 15:22:00 ACT Outpatient GREGORY BECERRA MD [facility] ONC [id number] 02/02/2017 14:53:08 02/02/2017 23:59:59 CLS Outpatient
[2018-05-05] MEDS: TETRACAINE 0.5% OPHTH SOLN 4 ML BTL (SINGLE DOSE ONLY) OU PRN ×4 (11:01→11:11)
[2018-05-05] MEDS: CYCLOPENTOLATE 1% (CYCLOGYL) 2 ML DROPS OP SCH ×3 (11:04→11:11)
[2018-05-05] MEDS: PHENYLEPHRINE 10% OPHTH (NEO-SYN) 5 ML BTL OU SCH ×3 (11:04→11:11)
[2018-05-05] MEDS ORDERED: MIDAZOLAM 2 MG/2 ML (VERSED) VIAL ONE (11:09)
--- NOTE | 2018-05-05 11:22 | Ophthalmologist Pre-Op Note ---
Pre-Operative Progress Note H&P Reviewed The H&P was reviewed, patient examined and no changes noted. Date H&P Reviewed: May 05, 2018 Time H&P Reviewed: 11:22 Pre-Op Dx Cataract, Right Eye KARYNA RAMIREZ MD May 05, 2018 11:22
--- NOTE | 2018-05-05 11:49 | Ophthalmology Operative Report ---
Cataract removal/placement IOL PREOPERATIVE DIAGNOSIS: Cataract Right Eye POSTOPERATIVE DIAGNOSIS: Cataract Right Eye PROCEDURE: Cataract removal and placement of posterior chamber implant, right eye SURGEON: Aldo Ramirez ANESTHESIA: Topical with sedation COMPLICATIONS: None ESTIMATED BLOOD LOSS: Minimal DESCRIPTION OF PROCEDURE: After proper informed consent was obtained, the patient, a 78 male, was taken to the Operating Room and the right eye was anesthetized with tetracaine. The right eye was then prepped and draped in the usual manner. A wire lid speculum was placed. A paracentesis was made at the left hand position. Preservative free lidocaine was injected into the anterior chamber followed by viscoelastic. A clear corneal incision was made in the temporal position. A capsulorrhexis was preformed and the central nuclear and cortical material were removed. The posterior capsule was polished and Maxime 19.5 AU00T0 IOL was placed into the capsular bag. The residual viscoelastic was aspirated and balanced saline solution was injected into the anterior chamber. Moxifloxacin was injected into the anterior chamber. The wound was checked and found to be water tight. The patient tolerated the procedure well without complications. ALDO RAMIREZ MD May 05, 2018 11:49
[2018-05-05 12:07] VITALS: BP 153/78
[2018-05-05] MEDS ORDERED: acetaZOLAMIDE ER 500 MG CAP (DIAMOX SEQUELS) PO ONE (12:30)
--- NOTE | 2018-05-05 12:57 | Anesthesia-General Post-Op ---
MAC Patient Condition Mental Status/LOC: Same as Preop Cardiovascular: Satisfactory Nausea/Vomiting: Absent Respiratory: Satisfactory Pain: Controlled Complications: Absent Post Op Complications Complications None Follow Up Care/Instructions Patient Instructions None needed. Anesthesiology Discharge Order Discharge Order Patient is doing well, no complaints, stable vital signs, no apparent adverse anesthesia problems. No complications reported per nursing. MICHOACANO DWYER CRNA May 05, 2018 12:57
== END 2018-05-05 12:07 | disposition home or self-care (01) ==
LOC: SDC 10:36
PROVIDERS: ATTEND Specialist
DX: H25.11 Age-related nuclear cataract, right eye (principal); E11.36 Type 2 diabetes mellitus with diabetic cataract; I10 Essential (primary) hypertension; E78.00 Pure hypercholesterolemia, unspecified; Z79.84 Long term (current) use of oral hypoglycemic drugs; Z79.899 Other long term (current) drug therapy
CPT/HCPCS: 82962

== ENCOUNTER → 2018-05-08 | Outpatient (RCR) | payer MEDICARE | END | disposition home or self-care (01) | LOC: ONC 02-07 13:35 | PROVIDERS: ATTEND Radiology Radiation Oncology | DX: C61 Malignant neoplasm of prostate (principal); I10 Essential (primary) hypertension; E11.9 Type 2 diabetes mellitus without complications; N40.0 Benign prostatic hyperplasia without lower urinary tract symptoms; Z79.84 Long term (current) use of oral hypoglycemic drugs; Z51.0 Encounter for antineoplastic radiation therapy | CPT/HCPCS: 77300; 77301; 77334; 77336; 77338; 77385; 99204 ==

== ENCOUNTER → 2018-05-12 | Outpatient (CLI) | payer MEDICARE | END | disposition home or self-care (01) | LOC: PREOP 06:23 | PROVIDERS: ATTEND Specialist | DX: Z01.818 Encounter for other preprocedural examination (principal) ==

== ENCOUNTER 2018-06-05 06:18 | Outpatient (CLI) | payer MEDICARE ==
[~2018-06-05] VITALS: Ht 165.1 cm; Wt 78.5 kg
== END 2018-06-07 14:24 | disposition home or self-care (01) ==
LOC: PREOP 06:18
PROVIDERS: ATTEND Specialist
DX: Z01.818 Encounter for other preprocedural examination (principal)

== ENCOUNTER 2018-06-09 09:57 | Day surgery (SDC) | payer MEDICARE ==
[~2018-06-09] VITALS: Ht 165.1 cm; Wt 78.5 kg
[2018-06-09 10:00] VITALS: BP 161/66
--- OUTSIDE RECORDS SUMMARY | 2018-06-09 10:02 | XMS REPORT | CCD ---
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 Name Role Phone PP Unavailable CCM Unavailable Summary Purpose Interface Exchange Insurance Providers Payer name Policy type / Coverage type Covered democrat ID Effective Begin Date Effective End Date WPS Medicare Part B Medicare Part B [id number] 2018 Unknown [facility] Medicare Part B No Plan Member [...] self employed 10/23/[address]: 393807532 Never smoker 10/23/[address]: 278150534 Never drinks alcohol 10/23/2014 Allergies, Adverse Reactions, [...] Start Date Stop Date Status Fill Instructions losartan 100 mg tablet RxNorm: 166320 TAKE 1 TABLET BY MOUTH DAILY 06/02/2018 12/28/2018 Active Generic For:COZAAR 100MG 06/02/2018 4:25:21 PM glimepiride 2 mg tablet RxNorm: 124620 TAKE 1/2 (ONE- HALF) TABLET BY MOUTH TWICE DAILY 06/02/2018 11/28/2018 Active Generic For:AMARYL 2MG 06/02/2018 4:25:26 PM simvastatin 20 mg tablet RxNorm: 200230 TAKE ONE TABLET BY MOUTH DAILY 03/06/2018 11/30/2018 Active Generic For:ZOCOR 20MG 03/06/2018 9:01:27 AM Truetest Test Strips RxNorm: TEST BLOOD SUGAR EVERY DAY 201711/26/2018 Active 01/30/2018 3:29:14 PM bisoprolol fumarate 5 mg tablet RxNorm: 508057 1 Tablet(s) PO BID 01/30/2018 08/27/2018 Active this replaces his combination pill glimepiride 2 mg tablet RxNorm: 477060 TAKE 1/2 (ONE- HALF) TABLET BY MOUTH TWICE DAILY 12/06/2017 06/01/2018 Inactive Generic For:AMARYL 2MG 12/06/2017 9:07:06 AM losartan 100 mg tablet RxNorm: 092611 TAKE 1 TABLET BY MOUTH DAILY 11/07/2017 06/01/2018 Inactive Generic For:COZAAR 100MG 11/07/2017 9:05:45 AM bisoprolol 5 mg-hydrochlorothiazide 6.25 mg tablet RxNorm: 491424 TAKE 1 TABLET BY MOUTH TWICE DAILY 09/15/20172017 Inactive Generic For:ZIAC 5-6.25MG 09/15/2017 9:07:10 AM glimepiride 2 mg tablet RxNorm: 595309 TAKE 1/2 (ONE- HALF) TABLET BY MOUTH TWICE DAILY 06/17/2017 12/05/2017 Inactive Generic For:AMARYL 2MG 06/17/2017 9:01:41 AM simvastatin 20 mg tablet RxNorm: 399220 TAKE ONE TABLET BY MOUTH DAILY 06/17/2017 03/05/2018 Inactive Generic For:ZOCOR 20MG 06/17/2017 9:01:38 AM losartan 100 mg tablet RxNorm: 851041 TAKE 1 TABLET BY MOUTH DAILY 04/18/2017 11/06/2017 Inactive Generic For:COZAAR 100MG 04/18/2017 9:40:33 AM bisoprolol 5 mg-hydrochlorothiazide 6.25 mg tablet RxNorm: 609219 TAKE 1 TABLET BY MOUTH TWICE DAILY 02/17/20172017 Inactive Generic For:ZIAC 5-6.25MG 02/17/2017 9:04:42 AM glimepiride 2 mg tablet RxNorm: 524268 1/2 Tablet(s) BID 201606/16/2017 Inactive Generic For:AMARYL 2MG 07/22/2016 9:03:39 AM Zithromax 250 mg tablet RxNorm: 281093 two pills on day #1 then 1 Tablet(s) PO daily 01/04/2017 01/08/2017 Inactive zpackx1 glimepiride 2 mg tablet RxNorm: 011739 1 Tablet(s) TAKE 1 TABLET BY MOUTH TWICE DAILY 11/17/2016 02/01/2017 Inactive Generic For:AMARYL 2MG 07/22/2016 9:03:39 AM glimepiride 2 mg tablet RxNorm: 145335 1 Tablet(s) TAKE 1 TABLET BY MOUTH TWICE DAILY 11/17/2016 11/16/2016 Inactive Generic For:AMARYL 2MG 07/22/2016 9:03:39 AM Ness Allergy 180 mg tablet RxNorm: 769980 1 Tablet(s) PO daily 10/25/2016 10/24/2016 Inactive Zithromax 250 mg tablet RxNorm: 402362 1 Tablet(s) PO daily 10/24/2016 Inactive zpackx1 Ness Allergy 180 mg tablet RxNorm: 065838 1 Tablet(s) PO daily 10/25/2016 03/07/2017 Inactive Zithromax 250 mg tablet RxNorm: 727883 1 Tablet(s) PO daily 10/29/2016 Inactive zpackx1 glimepiride 2 mg tablet RxNorm: 008289 1/2 Tablet(s) TAKE 1 TABLET BY MOUTH TWICE DAILY 10/12/2016 11/16/2016 Inactive Generic For:AMARYL 2MG 07/22/2016 9:03:39 AM losartan 100 mg tablet RxNorm: 816019 1 Tablet(s) PO daily 04/17/2017 Inactive metformin 500 mg tablet RxNorm: 348933 TAKE 1 TABLET BY MOUTH TWICE DAILY 09/20/2016 11/15/2016 Inactive Generic For:GLUCOPHAGE 500MG 09/20/2016 9:11:58 AM simvastatin 20 mg tablet RxNorm: 054894 TAKE ONE TABLET BY MOUTH DAILY 09/20/2016 06/16/2017 Inactive Generic For:ZOCOR 20MG 09/20/2016 9:11:29 AM bisoprolol 5 mg-hydrochlorothiazide 6.25 mg tablet RxNorm: 356861 TAKE 1 TABLET BY MOUTH TWICE DAILY 07/22/20162016 Inactive Generic For:ZIAC 5-6.25MG 07/22/2016 9:03:48 AM glimepiride 2 mg tablet RxNorm: 054667 TAKE 1 TABLET BY MOUTH TWICE DAILY 07/22/2016 10/11/2016 Inactive Generic For:AMARYL 2MG 07/22/2016 9:03:39 AM meloxicam 15 mg tablet RxNorm: 976863 TAKE 1 TABLET BY MOUTH DAILY 05/24/2016 11/15/2016 Inactive Generic For:MOBIC 15MG 05/24/2016 9:12:11 AM metformin 500 mg tablet RxNorm: 880397 1 Tablet(s) BID 201609/19/2016 Inactive Generic For:GLUCOPHAGE 500MG 04/29/2015 3:46:58 PM bisoprolol 5 mg-hydrochlorothiazide 6.25 mg tablet RxNorm: 728234 TAKE 1 TABLET BY MOUTH TWICE DAILY 03/31/20162016 Inactive Generic For:ZIAC 5-6.25MG 03/31/2016 12:38:33 PM glimepiride 2 mg tablet RxNorm: 484255 TAKE 1 TABLET BY MOUTH TWICE DAILY 03/31/2016 07/21/2016 Inactive Generic For:AMARYL 2MG 03/31/2016 12:38:28 PM losartan 100 mg tablet RxNorm: 864850 1 Tablet(s) PO daily 09/19/2016 Inactive simvastatin 20 mg tablet RxNorm: 511937 1 Tablet(s) PO daily 09/18/2016 Inactive glimepiride 2 mg tablet RxNorm: 210027 1 Tablet(s) PO BID 11/2303/22/2016 Inactive meloxicam 15 mg tablet RxNorm: 542184 1 Tablet(s) PO daily 05/21/2016 Inactive bisoprolol 5 mg-hydrochlorothiazide 6.25 mg tablet RxNorm: 248893 1 Tablet(s) PO BID 11/24/2015 03/22/2016 Inactive Generic For:ZIAC 5-6.25MG 03/31/2015 4:06:14 PM03/31/2015 3:58:36 PM metformin 500 mg tablet RxNorm: 679193 1 Tablet(s) BID 201504/04/2016 Inactive Generic For:GLUCOPHAGE 500MG 04/29/2015 3:46:58 PM losartan 50 mg tablet RxNorm: 768350 1 Tablet(s) PO daily 201502/29/2016 Inactive bisoprolol 5 mg-hydrochlorothiazide 6.25 mg tablet RxNorm: 764834 1 Tablet(s) PO BID 07/29/2015 11/23/2015 Inactive Generic For:ZIAC 5-6.25MG 03/31/2015 4:06:14 PM03/31/2015 3:58:36 PM bisoprolol 5 mg-hydrochlorothiazide 6.25 mg tablet RxNorm: 096345 Tablet(s) 1 TABLET(S) BY MOUTH DAILY 07/21/20152015 Inactive Generic For:ZIAC 5-6.25MG 03/31/2015 4:06:14 PM03/31/2015 3:58:36 PM meloxicam 15 mg tablet RxNorm: 178789 1 Tablet(s) PO daily 11/17/2015 Inactive glimepiride 2 mg tablet RxNorm: 102383 1 Tablet(s) PO BID 07/2011/17/2015 Inactive metformin 500 mg tablet RxNorm: 296586 Tablet(s) TAKE 1 TABLET BY MOUTH IN THE MORNING AND 1/2 TABLET IN THE EVENING 06/16/2015 11/06/2015 Inactive Generic For: GLUCOPHAGE 500MG 04/29/2015 3:46:58 PM metformin 500 mg tablet RxNorm: 221798 Tablet(s) TAKE 1 TABLET BY MOUTH IN THE MORNING AND 1/2 TABLET IN THE EVENING 05/19/2015 06/15/2015 Inactive Generic For: GLUCOPHAGE 500MG 04/29/2015 3:46:58 PM metformin 500 mg tablet RxNorm: 485191 TAKE 1/2 (ONE- HALF) TABLET BY MOUTH DAILY BY MOUTH TWICE DAILY 04/29/20152015 Inactive Generic For:GLUCOPHAGE 500MG 04/29/2015 3:46:58 PM meloxicam 15 mg tablet RxNorm: 425566 1 Tablet(s) PO daily 07/20/2015 Inactive simvastatin 20 mg tablet RxNorm: 176770 1 Tablet(s) PO daily 12/23/2015 Inactive bisoprolol 5 mg-hydrochlorothiazide 6.25 mg tablet RxNorm: 610072 1 TABLET(S) BY MOUTH DAILY 03/31/2015 07/20/2015 Inactive Generic For:ZIAC 5-6.25MG 03/31/2015 4: 06:14 PM03/31/2015 3:58:36 PM glimepiride 2 mg tablet RxNorm: 687002 1 Tablet(s) PO BID 02/0506/04/2015 Inactive increase to BID metformin 500 mg tablet RxNorm: 306203 1/2 Tablet(s) PO BID 04/20/2015 Inactive bisoprolol 5 mg-hydrochlorothiazide 6.25 mg tablet RxNorm: 623759 1 Tablet(s) PO daily 12/05/2014 12/04/2014 Inactive bisoprolol 5 mg-hydrochlorothiazide 6.25 mg tablet RxNorm: 635668 1 Tablet(s) PO daily 12/05/2014 03/30/2015 Inactive meloxicam 15 mg tablet RxNorm: 264401 1 Tablet(s) PO daily 04/201404/01/2015 Inactive Truetest Test Strips RxNorm: Miscellaneous daily 11/20/2014 11/19/2014 Inactive Truetest Test Strips RxNorm: Miscellaneous daily 11/20/2014 11/14/2015 Inactive finasteride 5 mg tablet RxNorm: 383340 1 Tablet(s) PO daily No Start Date Active tamsulosin 0.4 mg capsule RxNorm: 857016 1 Capsule(s) PO daily No Start Date Active simvastatin 20 mg tablet RxNorm: 676559 1 Tablet(s) PO daily No Start Date 04/01/2015 Inactive meloxicam 15 mg tablet RxNorm: 675971 1 Tablet(s) PO daily No Start Date 12/02/2014 Inactive metformin 500 mg tablet RxNorm: 051553 1/2 Tablet(s) PO BID No Start Date 01/20/2015 Inactive glimepiride 2 mg tablet RxNorm: 572594 1 Tablet(s) PO daily No Start Date 02/04/2015 Inactive Ziac 5 mg-6.25 mg tablet RxNorm: 871443 1 Tablet(s) PO daily No Start Date 04/02/2015 Inactive Medication Administered No Medication Administered data Immunizations No Immunization data Assessments Condition Codes Effective Dates Encounter for general adult medical examination with abnormal findings ICD-10: Z00.01 ICD-9: V70.0 03/20/2018 Actinic keratosis ICD-10: L57.0 ICD-9: 702.0 03/07/2018 Type 2 diabetes mellitus with hyperglycemia ICD-10: E11.65 ICD-9: 250.00 03/07/2018 Essential (primary) hypertension ICD-10: I10 ICD-9: 401.1 03/07/2018 Chronic kidney disease, stage 3 (moderate) ICD-10: N18.3 ICD-9: 585.3 03/07/2018 Type 2 diabetes mellitus without complications [...] 702.0 2014 Impacted cerumen ICD-9: 380.4 10/23/2014 ESSENTIAL HYPERTENSION ICD-9: 401.9 10/23 Changing skin lesion ICD-9: 709.9 2014 Skin change ICD-9: 782.9 10/23/2014 Reason For Visit Reason For Visit Effective [...] 03/03/2018 Metabolic Ord15 CALCIUM 9.5 mg/dL 03/03/2018 Comp Metabolic Bkb079 NA 138 mEq/L 01/02/2018 Comp Metabolic Rot943 K 4.5 mEq/L 01/02/2018 Comp Metabolic Atc356 CL 103 mEq/L 01/02/2018 Comp Metabolic Sme840 CO2 28.0 mEq/L 01/02/2018 Comp Metabolic Nqq298 ANION GAP 12 01/02/2018 Comp Metabolic Jam173 GLUCOSE 186 mg/dL 01/02/2018 Comp Metabolic Ucd053 Creat 1.9 mg/dL 01/02/2018 Comp Metabolic Hlh180 eGFR 37 ml/min/1.73m2 01/02/2018 Comp Metabolic Jdx617 BUN 23 mg/dL 01/02/2018 Comp Metabolic Zsw647 B/C Ratio 12.2 Ratio 01/02/2018 Comp Metabolic Wfc463 CALCIUM 9.4 mg/dL 01/02/2018 Comp Metabolic Ewp903 ALK PHOS 46 U/L 01/02/2018 Comp Metabolic Bea018 AST(SGOT) 16 U/L 01/02/2018 Comp Metabolic Gkj737 ALT(SGPT) 19 U/L 01/02/2018 Comp Metabolic Ymf385 BILI T 0.6 mg/dL 01/02/2018 Comp Metabolic Get463 ALBUMIN 3.8 g/dL 01/02/2018 Comp Metabolic Wqk470 TPRO 6.1 g/dL 01/02/2018 Comp Metabolic Qdm832 GLOB 2.3 g/dL 01/02/2018 Comp Metabolic Mzp492 A/G Ratio 1.6 Ratio 01/02/2018 Comp Metabolic Byd505 Osmo 284 mOsmo 01/02/2018 Cbc With Differential Ord2 WBC 7.31 K/ul 01/02/2018 Cbc With Differential Ord2 RBC 4.50 M/ul 01/02/2018 Cbc With Differential Ord2 HGB 14.7 g/dl 01/02/2018 Cbc With Differential Ord2 HCT 44.2 % 01/02/2018 Cbc With Differential Ord2 Neut% 69.5 % 01/02/2018 Cbc With Differential Ord2 Lymph% 19.8 % 01/02/2018 Cbc With Differential Ord2 MCV 98.2 fl 01/02/2018 Cbc With Differential Ord2 [place]% 9.2 % 01/02/2018 Cbc With Differential Ord2 MCH 32.7 pg 01/02/2018 Cbc With Differential Ord2 MCHC 33.3 pg 01/02/2018 Cbc With Differential Ord2 Eos% 1.2 % 01/02/2018 Cbc With Differential Ord2 Baso% 0.3 % 01/02/2018 Cbc With Differential Ord2 PLT 327 K/ul 01/02/2018 Cbc With Differential Ord2 RDW 12.8 % 01/02/2018 Cbc With Differential Ord2 Neut ABS# 5.08 K/ul 01/02/2018 Cbc With Differential Ord2 Lymph ABS# 1.45 K/ul 01/02/2018 Cbc With Differential Ord2 [place] ABS# 0.7 K/ul 01/02/2018 Cbc With Differential Ord2 Eos ABS# 0.1 K/ul 01/02/2018 Cbc With Differential Ord2 Baso ABS# 0.0 K/ul 01/02/2018 %Hba1C Xgj155 % HbA1c 29560-0 6.7 % 01/02/2018 %Hba1C Jda767 Gluc Ave 146 mg/dL 01/02/2018 Comp Metabolic Zpm756 NA 139 mEq/L 08/31/2017 Comp Metabolic Byj506 K 4.7 mEq/L 08/31/2017 Comp Metabolic Zuz873 CL 107 mEq/L 08/31/2017 Comp Metabolic Wgm764 CO2 24.0 mEq/L 08/31/2017 Comp Metabolic Ukf333 ANION GAP 13 08/31/2017 Comp Metabolic Dae248 GLUCOSE 158 mg/dL 08/31/2017 Comp Metabolic Vky622 Creat 1.7 mg/dL 08/31/2017 Comp Metabolic Sng918 eGFR 43 ml/min/1.73m2 08/31/2017 Comp Metabolic Jar461 BUN 26 mg/dL 08/31/2017 Comp Metabolic Ddh889 B/C Ratio 15.5 Ratio 08/31/2017 Comp Metabolic Qnq916 CALCIUM 9.5 mg/dL 08/31/2017 Comp Metabolic Wwp171 ALK PHOS 47 U/L 08/31/2017 Comp Metabolic Hae300 AST(SGOT) 16 U/L 08/31/2017 Comp Metabolic Hac081 ALT(SGPT) 17 U/L 08/31/2017 Comp Metabolic Qoc463 BILI T 0.8 mg/dL 08/31/2017 Comp Metabolic Tfz912 ALBUMIN 4.0 g/dL 08/31/2017 Comp Metabolic Ray925 TPRO 6.4 g/dL 08/31/2017 Comp Metabolic Ric789 GLOB 2.5 g/dL 08/31/2017 Comp Metabolic Vyu212 A/G Ratio 1.6 Ratio 08/31/2017 Comp Metabolic Mtp543 Osmo 286 mOsmo 08/31/2017 Cbc With Differential Ord2 WBC 7.29 K/ul 08/31/2017 Cbc With Differential Ord2 RBC 4.52 M/ul 08/31/2017 Cbc With Differential Ord2 HGB 14.9 g/dl 08/31/2017 Cbc With Differential Ord2 Neut% 61.8 % 08/31/2017 Cbc With Differential Ord2 HCT 44.4 % 08/31/2017 Cbc With Differential Ord2 Lymph% 24.3 % 08/31/2017 Cbc With Differential Ord2 MCV 98.2 fl 08/31/2017 Cbc With Differential Ord2 [place]% 11.7 % 08/31/2017 Cbc With Differential Ord2 MCH 33.0 pg 08/31/2017 Cbc With Differential Ord2 MCHC 33.6 pg 08/31/2017 Cbc With Differential Ord2 Eos% 1.8 % 08/31/2017 Cbc With Differential Ord2 PLT 348 K/ul 08/31/2017 Cbc With Differential Ord2 Baso% 0.4 % 08/31/2017 Cbc With Differential Ord2 RDW 13.0 % 08/31/2017 Cbc With Differential Ord2 Neut ABS# 4.51 K/ul 08/31/2017 Cbc With Differential Ord2 Lymph ABS# 1.77 K/ul 08/31/2017 Cbc With Differential Ord2 [place] ABS# 0.9 K/ul 08/31/2017 Cbc With Differential Ord2 Eos ABS# 0.1 K/ul 08/31/2017 Cbc With Differential Ord2 Baso ABS# 0.0 K/ul 08/31/2017 Lipid Ord30 CHOL 136 mg/dL 08/31/2017 Lipid Ord30 HDL 49.0 mg/dl 08/31/2017 Lipid Ord30 TRIG 67 mg/dL 08/31/2017 Lipid Ord30 LDL 74 mg/dL 08/31/2017 Lipid Ord30 C/HDL 2.8 Ratio 08/31/2017 %Hba1C Hff837 % HbA1c 26079-1 6.5 % 08/31/2017 %Hba1C Xyk509 Gluc Ave 140 mg/dL 08/31/2017 %Hba1C Lzm295 % HbA1c 54801-4 6.5 % 04/27/2017 %Hba1C Rmq925 Gluc Ave 140 mg/dL 04/27/2017 Lipid Ord30 CHOL 134 mg/dL 04/27/2017 Lipid Ord30 HDL 44.0 mg/dl 04/27/2017 Lipid Ord30 TRIG 89 mg/dL 04/27/2017 Lipid Ord30 LDL 72 mg/dL 04/27/2017 Lipid Ord30 C/HDL 3.0 Ratio 04/27/2017 Cbc With Differential Ord2 WBC 6.48 K/ul 04/27/2017 Cbc With Differential Ord2 RBC 4.53 M/ul 04/27/2017 Cbc With Differential Ord2 HGB 14.7 g/dl 04/27/2017 Cbc With Differential Ord2 HCT 44.4 % 04/27/2017 Cbc With Differential Ord2 Neut% 64.9 % 04/27/2017 Cbc With Differential Ord2 MCV 98.0 fl 04/27/2017 Cbc With Differential Ord2 Lymph% 21.9 % 04/27/2017 Cbc With Differential Ord2 MCH 32.5 pg 04/27/2017 Cbc With Differential Ord2 [place]% 10.5 % 04/27/2017 Cbc With Differential Ord2 MCHC 33.1 pg 04/27/2017 Cbc With Differential Ord2 Eos% 2.2 % 04/27/2017 Cbc With Differential Ord2 PLT 378 K/ul 04/27/2017 Cbc With Differential Ord2 Baso% 0.5 % 04/27/2017 Cbc With Differential Ord2 RDW 13.0 % 04/27/2017 Cbc With Differential Ord2 Neut ABS# 4.21 K/ul 04/27/2017 Cbc With Differential Ord2 Lymph ABS# 1.42 K/ul 04/27/2017 Cbc With Differential Ord2 [place] ABS# 0.7 K/ul 04/27/2017 Cbc With Differential Ord2 Eos ABS# 0.1 K/ul 04/27/2017 Cbc With Differential Ord2 Baso ABS# 0.0 K/ul 04/27/2017 Comp Metabolic Yfu968 NA 140 mEq/L 04/27/2017 Comp Metabolic Sqd071 K 4.3 mEq/L 04/27/2017 Comp Metabolic Aws283 CL 105 mEq/L 04/27/2017 Comp Metabolic Efb659 CO2 26.0 mEq/L 04/27/2017 Comp Metabolic Gbt299 ANION GAP 13 04/27/2017 Comp Metabolic Ljs851 GLUCOSE 117 mg/dL 04/27/2017 Comp Metabolic Xdo171 Creat 1.6 mg/dL 04/27/2017 Comp Metabolic Uyu524 eGFR 45 ml/min/1.73m2 04/27/2017 Comp Metabolic Lhr463 BUN 27 mg/dL 04/27/2017 Comp Metabolic Txj328 B/C Ratio 16.9 Ratio 04/27/2017 Comp Metabolic Woy667 CALCIUM 9.5 mg/dL 04/27/2017 Comp Metabolic Mei332 ALK PHOS 55 U/L 04/27/2017 Comp Metabolic Wqy119 AST(SGOT) 20 U/L 04/27/2017 Comp Metabolic Zwt216 ALT(SGPT) 18 U/L 04/27/2017 Comp Metabolic Der109 BILI T 0.4 mg/dL 04/27/2017 Comp Metabolic Taw806 ALBUMIN 4.0 g/dL 04/27/2017 Comp Metabolic Nqo032 TPRO 6.5 g/dL 04/27/2017 Comp Metabolic Qaw578 GLOB 2.5 g/dL 04/27/2017 Comp Metabolic Dwi779 A/G Ratio 1.6 Ratio 04/27/2017 Comp Metabolic Egv522 Osmo 286 mOsmo 04/27/2017 Total Psa Ord10 PSA 7.87 ng/mL 04/27/2017 Tsh Ord6 hTSH II 1.25 uIU/mL 04/27/2017 Comp Metabolic Zrt026 NA 136 mEq/L 12/29/2016 Comp Metabolic Owa881 K 4.5 mEq/L 12/29/2016 Comp Metabolic Neg308 CL 103 mEq/L 12/29/2016 Comp Metabolic Orj757 CO2 24.0 mEq/L 12/29/2016 Comp Metabolic Ckm429 ANION GAP 14 12/29/2016 Comp Metabolic Zid533 GLUCOSE 164 mg/dL 12/29/2016 Comp Metabolic Ajh584 Creat 1.7 mg/dL 12/29/2016 Comp Metabolic Fey641 eGFR 43 ml/min/1.73m2 12/29/2016 Comp Metabolic Deo830 BUN 22 mg/dL 12/29/2016 Comp Metabolic Kbg740 B/C Ratio 13.3 Ratio 12/29/2016 Comp Metabolic Xrv772 CALCIUM 9.5 mg/dL 12/29/2016 Comp Metabolic Xab034 ALK PHOS 58 U/L 12/29/2016 Comp Metabolic Aet283 AST(SGOT) 16 U/L 12/29/2016 Comp Metabolic Etc547 ALT(SGPT) 16 U/L 12/29/2016 Comp Metabolic Dks675 BILI T 0.9 mg/dL 12/29/2016 Comp Metabolic Drq264 ALBUMIN 3.9 g/dL 12/29/2016 Comp Metabolic Riv922 TPRO 6.4 g/dL 12/29/2016 Comp Metabolic Xuy364 GLOB 2.5 g/dL 12/29/2016 Comp Metabolic Vzw616 A/G Ratio 1.5 Ratio 12/29/2016 Comp Metabolic Lcr305 Osmo 279 mOsmo 12/29/2016 Total Psa Ord10 PSA 8.44 ng/mL 11/09/2016 Comp Metabolic Smy838 NA 140 mEq/L 11/09/2016 Comp Metabolic Mrr915 K 4.9 mEq/L 11/09/2016 Comp Metabolic Shy829 CL 106 mEq/L 11/09/2016 Comp Metabolic Usi733 CO2 25.0 mEq/L 11/09/2016 Comp Metabolic Bhd834 ANION GAP 14 11/09/2016 Comp Metabolic Vhu512 GLUCOSE 127 mg/dL 11/09/2016 Comp Metabolic Llj288 Creat 1.7 mg/dL 11/09/2016 Comp Metabolic Jdb786 eGFR 43 ml/min/1.73m2 11/09/2016 Comp Metabolic Edo693 BUN 21 mg/dL 11/09/2016 Comp Metabolic Xbs750 B/C Ratio 12.7 Ratio 11/09/2016 Comp Metabolic Bdo861 CALCIUM 9.5 mg/dL 11/09/2016 Comp Metabolic Qhu358 ALK PHOS 45 U/L 11/09/2016 Comp Metabolic Jtd090 AST(SGOT) 18 U/L 11/09/2016 Comp Metabolic Wje004 ALT(SGPT) 16 U/L 11/09/2016 Comp Metabolic Rrr551 BILI T 0.6 mg/dL 11/09/2016 Comp Metabolic Ywr394 ALBUMIN 3.9 g/dL 11/09/2016 Comp Metabolic Bnf082 TPRO 6.4 g/dL 11/09/2016 Comp Metabolic Jla756 GLOB 2.5 g/dL 11/09/2016 Comp Metabolic Jwi993 A/G Ratio 1.5 Ratio 11/09/2016 Comp Metabolic Ijp874 Osmo 284 mOsmo 11/09/2016 Lipid Ord30 CHOL 152 mg/dL 11/09/2016 Lipid Ord30 HDL 46.0 mg/dl 11/09/2016 Lipid Ord30 TRIG 144 mg/dL 11/09/2016 Lipid Ord30 LDL 77 mg/dL 11/09/2016 Lipid Ord30 C/HDL 3.3 Ratio 11/09/2016 Cbc With Differential Ord2 WBC 9.15 K/ul 11/09/2016 Cbc With Differential Ord2 RBC 4.00 M/ul 11/09/2016 Cbc With Differential Ord2 HGB 13.5 g/dl 11/09/2016 Cbc With Differential Ord2 HCT 39.6 % 11/09/2016 Cbc With Differential Ord2 Neut% 60.2 % 11/09/2016 Cbc With Differential Ord2 MCV 99.0 fl 11/09/2016 Cbc With Differential Ord2 Lymph% 25.0 % 11/09/2016 Cbc With Differential Ord2 MCH 33.8 pg 11/09/2016 Cbc With Differential Ord2 [place]% 11.8 % 11/09/2016 Cbc With Differential Ord2 MCHC 34.1 pg 11/09/2016 Cbc With Differential Ord2 Eos% 2.7 % 11/09/2016 Cbc With Differential Ord2 Baso% 0.3 % 11/09/2016 Cbc With Differential Ord2 PLT 379 K/ul 11/09/2016 Cbc With Differential Ord2 RDW 12.8 % 11/09/2016 Cbc With Differential Ord2 Neut ABS# 5.50 K/ul 11/09/2016 Cbc With Differential Ord2 Lymph ABS# 2.29 K/ul 11/09/2016 Cbc With Differential Ord2 [place] ABS# 1.1 K/ul 11/09/2016 Cbc With Differential Ord2 Eos ABS# 0.3 K/ul 11/09/2016 Cbc With Differential Ord2 Baso ABS# 0.0 K/ul 11/09/2016 %Hba1C Tsq530 % HbA1c 00429-4 6.4 % 11/09/2016 %Hba1C Vlr444 Gluc Ave 137 mg/dL 11/09/2016 Tsh Ord6 hTSH II 0.65 uIU/mL 03/10/2016 Cbc With Differential Ord2 WBC 9.82 K/ul 03/10/2016 Cbc With Differential Ord2 RBC 4.74 M/ul 03/10/2016 Cbc With Differential Ord2 HGB 15.6 g/dl 03/10/2016 Cbc With Differential Ord2 Neut% 72.9 % 03/10/2016 Cbc With Differential Ord2 HCT 46.2 % 03/10/2016 Cbc With Differential Ord2 Lymph% 15.1 % 03/10/2016 Cbc With Differential Ord2 MCV 97.5 fl 03/10/2016 Cbc With Differential Ord2 [place]% 10.6 % 03/10/2016 Cbc With Differential Ord2 MCH 32.9 pg 03/10/2016 Cbc With Differential Ord2 MCHC 33.8 pg 03/10/2016 Cbc With Differential Ord2 Eos% 1.2 % 03/10/2016 Cbc With Differential Ord2 PLT 364 K/ul 03/10/2016 Cbc With Differential Ord2 Baso% 0.2 % 03/10/2016 Cbc With Differential Ord2 RDW 12.8 % 03/10/2016 Cbc With Differential Ord2 Neut ABS# 7.16 K/ul 03/10/2016 Cbc With Differential Ord2 Lymph ABS# 1.48 K/ul 03/10/2016 Cbc With Differential Ord2 [place] ABS# 1.0 K/ul 03/10/2016 Cbc With Differential Ord2 Eos ABS# 0.1 K/ul 03/10/2016 Cbc With Differential Ord2 Baso ABS# 0.0 K/ul 03/10/2016 %Hba1C Aoe080 % HbA1c 52733-2 6.6 % 03/10/2016 %Hba1C Wqw381 Gluc Ave 143 mg/dL 03/10/2016 Lipid Ord30 CHOL 141 mg/dL 03/10/2016 Lipid Ord30 HDL 48.0 mg/dl 03/10/2016 Lipid Ord30 TRIG 78 mg/dL 03/10/2016 Lipid Ord30 LDL 77 mg/dL 03/10/2016 Lipid Ord30 C/HDL 2.9 Ratio 03/10/2016 Comp Metabolic Ecv885 NA 138 mEq/L 03/10/2016 Comp Metabolic Upe392 K 4.9 mEq/L 03/10/2016 Comp Metabolic Bmz139 CL 102 mEq/L 03/10/2016 Comp Metabolic Sai470 CO2 28.0 mEq/L 03/10/2016 Comp Metabolic Hdy554 ANION GAP 13 03/10/2016 Comp Metabolic Bgm961 GLUCOSE 135 mg/dL 03/10/2016 Comp Metabolic Hlg230 Creat 1.5 mg/dL 03/10/2016 Comp Metabolic Stk420 eGFR 51 ml/min/1.73m2 03/10/2016 Comp Metabolic Vuh578 BUN 28 mg/dL 03/10/2016 Comp Metabolic Abq558 B/C Ratio 19.3 Ratio 03/10/2016 Comp Metabolic Dzw215 CALCIUM 9.8 mg/dL 03/10/2016 Comp Metabolic Mhn150 ALK PHOS 52 U/L 03/10/2016 Comp Metabolic Xzs055 AST(SGOT) 19 U/L 03/10/2016 Comp Metabolic Tkn154 ALT(SGPT) 22 U/L 03/10/2016 Comp Metabolic Xty330 BILI T 0.5 mg/dL 03/10/2016 Comp Metabolic Utd916 ALBUMIN 4.4 g/dL 03/10/2016 Comp Metabolic Kls839 TPRO 6.8 g/dL 03/10/2016 Comp Metabolic Amo885 GLOB 2.4 g/dL 03/10/2016 Comp Metabolic Tto851 A/G Ratio 1.8 Ratio 03/10/2016 Comp Metabolic Ahn248 Osmo 283 mOsmo 03/10/2016 Lipid Ord30 CHOL 152 mg/dL 11/06/2015 Lipid Ord30 HDL 48.0 mg/dl 11/06/2015 Lipid Ord30 TRIG 79 mg/dL 11/06/2015 Lipid Ord30 LDL 88 mg/dL 11/06/2015 Lipid Ord30 C/HDL 3.2 Ratio 11/06/2015 Comp Metabolic Fqw651 NA 136 mEq/L 11/06/2015 Comp Metabolic Api079 K 4.0 mEq/L 11/06/2015 Comp Metabolic Iqw971 CL 102 mEq/L 11/06/2015 Comp Metabolic Ltc019 CO2 27.0 mEq/L 11/06/2015 Comp Metabolic Waj845 ANION GAP 11 11/06/2015 Comp Metabolic Ojr849 GLUCOSE 144 mg/dL 11/06/2015 Comp Metabolic Pfm851 Creat 1.2 mg/dL 11/06/2015 Comp Metabolic Prx660 eGFR 64 ml/min/1.73m2 11/06/2015 Comp Metabolic Okc879 BUN 23 mg/dL 11/06/2015 Comp Metabolic Hsq788 B/C Ratio 19.3 Ratio 11/06/2015 Comp Metabolic Ywz252 CALCIUM 10.2 mg/dL 11/06/2015 Comp Metabolic Iyi067 ALK PHOS 52 U/L 11/06/2015 Comp Metabolic Ynb161 AST(SGOT) 16 U/L 11/06/2015 Comp Metabolic Ekt312 ALT(SGPT) 19 U/L 11/06/2015 Comp Metabolic Wyg654 BILI T 0.7 mg/dL 11/06/2015 Comp Metabolic Frd621 ALBUMIN 4.3 g/dL 11/06/2015 Comp Metabolic Scg426 TPRO 6.8 g/dL 11/06/2015 Comp Metabolic Uex766 GLOB 2.5 g/dL 11/06/2015 Comp Metabolic Xfc378 A/G Ratio 1.7 Ratio 11/06/2015 Comp Metabolic Hgs533 Osmo 278 mOsmo 11/06/2015 %Hba1C Iiq045 % HbA1c 73656-7 7.3 % 11/06/2015 %Hba1C Onq431 Gluc Ave 163 mg/dL 11/06/2015 Cbc With [...] 32.8 pg 06/05/2015 Cbc With Differential Ord2 [place]% 9.8 % 06/05/2015 Cbc With Differential Ord2 MCHC 34.3 pg 06/05/2015 Cbc With Differential Ord2 Eos% 1.0 % 06/05/2015 Cbc With Differential Ord2 PLT 375 K/ul 06/05/2015 Cbc With Differential Ord2 Baso% 0.4 % 06/05/2015 Cbc With Differential Ord2 RDW 12.9 % 06/05/2015 Cbc With Differential Ord2 Neut ABS# 5.99 K/ul 06/05/2015 Cbc With Differential Ord2 Lymph ABS# 1.97 K/ul 06/05/2015 Cbc With Differential Ord2 [place] ABS# 0.9 K/ul 06/05/2015 Cbc With Differential Ord2 Eos ABS# 0.1 K/ul 06/05/2015 Cbc With Differential Ord2 Baso ABS# 0.0 K/ul 06/05/2015 Cbc With Differential Ord2 New Analyzer Notice Please note new ref ranges starting 04-16-2015 due to implemntation of new five part differential hematolgy analyzer. 06/05/2015 %Hba1C Ela775 % HbA1c 38529-4 7.1 % 05/08/2015 %Hba1C Ngd455 Gluc Ave 157 mg/dL 05/08/2015 Microalbumin Iit583 MicroAlb 1.2 mg/dL 05/01/2015 Tsh Ord6 hTSH II 1.35 uIU/mL 04/30/2015 Comp Metabolic Chv394 NA 136 mEq/L 04/30/2015 Comp Metabolic Ifm303 K 4.5 mEq/L 04/30/2015 Comp Metabolic Cbu181 CL 100 mEq/L 04/30/2015 Comp Metabolic Qdv543 CO2 28.0 mEq/L 04/30/2015 Comp Metabolic Cez623 ANION GAP 13 04/30/2015 Comp Metabolic Ekb765 GLUCOSE 162 mg/dL 04/30/2015 Comp Metabolic Scv815 Creat 1.2 mg/dL 04/30/2015 Comp Metabolic Tra843 eGFR 62 ml/min/1.73m2 04/30/2015 Comp Metabolic Bzs440 BUN 21 mg/dL 04/30/2015 Comp Metabolic Yqa163 B/C Ratio 17.4 Ratio 04/30/2015 Comp Metabolic Kmn465 CALCIUM 9.9 mg/dL 04/30/2015 Comp Metabolic Ixp705 ALK PHOS 51 U/L 04/30/2015 Comp Metabolic Gah766 AST(SGOT) 18 U/L 04/30/2015 Comp Metabolic Hvl770 ALT(SGPT) 23 U/L 04/30/2015 Comp Metabolic Nlq350 BILI T 0.5 mg/dL 04/30/2015 Comp Metabolic Pbv015 ALBUMIN 4.2 g/dL 04/30/2015 Comp Metabolic Chv365 TPRO 6.9 g/dL 04/30/2015 Comp Metabolic Qjs903 GLOB 2.7 g/dL 04/30/2015 Comp Metabolic Nds913 A/G Ratio 1.6 Ratio 04/30/2015 Comp Metabolic Tov085 Osmo 278 mOsmo 04/30/2015 Lipid Ord30 CHOL 150 mg/dL 04/30/2015 Lipid Ord30 HDL 55.0 mg/dl 04/30/2015 Lipid Ord30 TRIG 78 mg/dL 04/30/2015 Lipid Ord30 LDL 79 mg/dL 04/30/2015 Lipid Ord30 C/HDL 2.7 Ratio 04/30/2015 Cbc With Differential Ord2 WBC 8.43 K/ul 04/30/2015 Cbc With Differential Ord2 RBC 5.25 M/ul 04/30/2015 Cbc With Differential Ord2 HGB 17.4 g/dl 04/30/2015 Cbc With Differential Ord2 HCT 50.7 % 04/30/2015 Cbc With Differential Ord2 Neut% 58.0 % 04/30/2015 Cbc With Differential Ord2 MCV 96.6 fl 04/30/2015 Cbc With Differential Ord2 Lymph% 28.6 % 04/30/2015 Cbc With Differential Ord2 MCH 33.1 pg 04/30/2015 Cbc With Differential Ord2 [place]% 11.2 % 04/30/2015 Cbc With Differential Ord2 Eos% 2.0 % 04/30/2015 Cbc With Differential Ord2 MCHC 34.3 pg 04/30/2015 Cbc With Differential Ord2 Baso% 0.2 % 04/30/2015 Cbc With Differential Ord2 PLT 374 K/ul 04/30/2015 Cbc With Differential Ord2 RDW 13.0 % 04/30/2015 Cbc With Differential Ord2 Neut ABS# 4.89 K/ul 04/30/2015 Cbc With Differential Ord2 Lymph ABS# 2.41 K/ul 04/30/2015 Cbc With Differential Ord2 [place] ABS# 0.9 K/ul 04/30/2015 Cbc With Differential Ord2 Eos ABS# 0.2 K/ul 04/30/2015 Cbc With Differential Ord2 Baso ABS# 0.0 K/ul 04/30/2015 Cbc With Differential Ord2 New Analyzer Notice Please note new ref ranges starting 04-16-2015 due to implemntation of new five part differential hematolgy analyzer. 04/30/2015 Cbc With Differential Ord2 WBC 7.5 K/uL [...] Differential Ord2 RDW 13.6 % 01/28/2015 %Hba1C Tnu267 % HbA1c 02413-0 7.3 % 01/28/2015 %Hba1C Klz007 Gluc Ave 163 mg/dL 01/28/2015 Metabolic Ord15 NA 136 mEq/L 01/28/2015 Metabolic [...] 01/28/2015 Metabolic Ord15 CALCIUM 9.7 mg/dL 01/28/2015 %Hba1C Dkd568 % HbA1c 93271-6 7.8 % 10/24/2014 %Hba1C Ocz299 Gluc Ave 177 mg/dL 10/24/2014 Comp Metabolic Xdb041 NA 135 mEq/L 10/23/2014 Comp Metabolic Uaf834 K 4.4 mEq/L 10/23/2014 Comp Metabolic Dyf176 CL 99 mEq/L 10/23/2014 Comp Metabolic Flw879 CO2 31.0 mEq/L 10/23/2014 Comp Metabolic Pac319 ANION GAP 9 10/23/2014 Comp Metabolic Igj966 GLUCOSE 203 mg/dL 10/23/2014 Comp Metabolic Wgr612 Creat 1.1 mg/dL 10/23/2014 Comp Metabolic Sml649 eGFR 72 ml/min/1.73m2 10/23/2014 Comp Metabolic Rbc554 BUN 19 mg/dL 10/23/2014 Comp Metabolic Ypj127 B/C Ratio 17.8 Ratio 10/23/2014 Comp Metabolic Kyv531 CALCIUM 10.2 mg/dL 10/23/2014 Comp Metabolic Rah322 ALK PHOS 55 U/L 10/23/2014 Comp Metabolic Bvd740 AST(SGOT) 22 U/L 10/23/2014 Comp Metabolic Fqq861 ALT(SGPT) 34 U/L 10/23/2014 Comp Metabolic Wrb372 BILI T 0.8 mg/dL 10/23/2014 Comp Metabolic Jma657 ALBUMIN 4.3 g/dL 10/23/2014 Comp Metabolic Hzq654 TPRO 6.7 g/dL 10/23/2014 Comp Metabolic Tam011 GLOB 2.4 g/dL 10/23/2014 Comp Metabolic Jym943 A/G Ratio 1.8 Ratio 10/23/2014 Comp Metabolic Dil983 Osmo 278 mOsmo 10/23/2014 Cbc With Differential Ord2 WBC 8.9 K/uL [...] With Differential Ord2 RDW 13.7 % 10/23/2014 Review of Systems System Result Effective [...] inspection of skin Location: face 03/07/2018 left yarsanism nodular lesion treated with cryotherapy x 3 [...] -4: G0439 03/20/2018 DESTRUCT PREMALG LESION CPT-4: 02828 03/07/2018 DESTRUCT PREMALG LES 2-14 CPT-4: 47397 03/07/2018 PPPS, SUBSEQ VISIT CPT -4: G0439 03/15/2017 PPPS, SUBSEQ VISIT CPT -4: G0439 03/12/2016 DESTRUCT PREMALG LESION CPT-4: 66743 10/23/2014 DESTRUCT PREMALG LES 2-14 CPT-4: 83385 10/23/2014 Vital Signs Date Vital 03/20/2018 Blood Pressure 1: 140/62 Code : 8480-6 BMI: 29.8 Code : 68685-3 Heart Rate 1 : 59 bpm Height: 5'5" SpO2: 96% Weight: 179 lbs 03/07/2018 Blood Pressure 1: 160/80 Code : 8480-6 BMI: 29.8 Code : 12926-6 Heart Rate 1 : 56 bpm Height: 5'5" SpO2: 96% Weight: 179 lbs 01/30/2018 Blood Pressure 1: 144/64 Code : 8480-6 Blood Pressure 2: 150/64 Code: 8480-6 BMI: 29.6 Code: 47264-1 Heart Rate 1: 61 bpm Height: 5'5" SpO2: 98% Weight: 178 lbs 09/07/2017 Blood Pressure 1: 148/68 Code : 8480-6 BMI: 29.6 Code : 59624-7 Heart Rate 1 : 60 bpm Height: 5'5" SpO2: 98% Weight: 178 lbs 05/05/2017 Blood Pressure 1: 122/64 Code : 8480-6 BMI: 28.3 Code : 91724-9 Heart Rate 1 : 56 bpm Height: 5'5" SpO2: 97% Weight: 170 lbs 2017 BMI: 29.1 Code: 58144-1 Height: 5'5" Weight: 175 lbs 03/15/2017 Blood Pressure 1: 136/76 Code : 8480-6 BMI: 29.1 Code : 25730-7 Heart Rate 1 : 82 bpm Height: 5'5" SpO2: 98% Weight: 175 lbs 03/03/2017 BMI: 29.1 Code: 39895-9 Height: 5'5" Weight: 175 lbs 02/02/2017 Blood Pressure 1: 132/60 Code : 8480-6 BMI: 28.6 Code : 49588-0 Heart Rate 1 : 64 bpm Height: 5'5" SpO2: 99% Weight: 172 lbs 01/04/2017 Blood Pressure 1: 138/70 Code : 8480-6 BMI: 29.6 Code : 41216-7 Heart Rate 1 : 59 bpm Height: 5'5" SpO2: 99% Weight: 178 lbs 11/16/2016 Blood Pressure 1: 150/70 Code : 8480-6 BMI: 30.6 Code : 43756-6 Heart Rate 1 : 68 bpm Height: 5'5" SpO2: 94% Weight: 184 lbs 07/19/2016 Blood Pressure 1: 150/70 Code : 8480-6 Blood Pressure 2: 154/70 Code: 8480-6 BMI: 31.0 Code: 31789-1 Heart Rate 1: 61 bpm Height: 5'5" SpO2: 98% Weight: 186 lbs 03/12/2016 Blood Pressure 1: 156/80 Code : 8480-6 BMI: 30.5 Code : 45474-6 Heart Rate 1 : 60 bpm Height: 5'5" SpO2: 98% Waist Measure (cm): 91 cm Weight: 183 lbs 03/10/2016 Blood Pressure 1: 15878 Code : 8480-6 Blood Pressure 1: 15878 Code: 8480-6 BMI: 30.5 Code: 07068-7 Heart Rate 1: 61 bpm Height: 5'5" SpO2: 98% Weight: 183 lbs 11/06/2015 Blood Pressure 1: 156/80 Code : 8480-6 Blood Pressure 1: 138/70 Code: 8480-6 BMI: 30.1 Code: 45301-4 Heart Rate 1: 64 bpm Height: 5'5" SpO2: 98% Weight: 181 lbs 09/09/2015 Blood Pressure 1: 126/68 Code : 8480-6 08/26/2015 Blood Pressure 1: 162/76 Code : 8480-6 Blood Pressure 1: 168/74 Code: 8480-6 BMI: 29.8 Code: 46495-2 Heart Rate 1: 61 bpm Height: 5'5" SpO2: 98% Weight: 179 lbs 07/29/2015 Blood Pressure 1: 166/76 Code : 8480-6 BMI: 30.0 Code : 23329-6 Heart Rate 1 : 75 bpm Height: 5'5" SpO2: 99% Weight: 180 lbs 04/29/2015 Blood Pressure 1: 132/76 Code : 8480-6 Blood Pressure 1: 130/70 Code: 8480-6 BMI: 30.8 Code: 66912-8 Heart Rate 1: 64 bpm Height: 5'5" SpO2: 99% Weight: 185 lbs 10/23/2014 Blood Pressure 1: 140/76 Code : 8480-6 BMI: 30.5 Code : 09162-4 Heart Rate 1 : 63 bpm Height: [...] data Encounters Encounter Performer Location Codes Date ([id number]) [id number] EST. PATIENT, LEVEL IV Diagnosis: Essential (primary) hypertension[ICD10: I10] Diagnosis: Chronic kidney disease, stage 3 (moderate)[ICD10: N18.3] Diagnosis: Type 2 diabetes mellitus with hyperglycemia[ICD10: E11.65] [facility] CPT-4: 95299 03/07/2018 ([id number]) 93568 EST. PATIENT, LEVEL IV Diagnosis: Type 2 diabetes mellitus with hyperglycemia[ICD10: E11.65] Diagnosis: Chronic kidney disease, stage 3 (moderate)[ICD10: N18.3] Diagnosis: Essential (primary) hypertension[ICD10: I10] Virginie Isaac MD, [facility] CPT-4: 85427 01/30/2018 ([id number]) 71774 EST. PATIENT, LEVEL IV Diagnosis: Essential (primary) hypertension[ICD10: I10] Diagnosis: Type 2 diabetes mellitus without complications[ICD10: E11.9] Diagnosis: Malignant neoplasm of prostate[ICD10: C61] Diagnosis: Chronic kidney disease, stage 3 (moderate)[ICD10: N18.3] Virginie Isaac MD [facility] CPT-4: 49025 09/07/2017 ([id number]) 64187 EST. PATIENT, LEVEL IV Diagnosis: Type 2 diabetes mellitus without complications[ICD10: E11.9] Diagnosis: Essential (primary) hypertension[ICD10: I10] Diagnosis: Changes in skin texture[ICD10: R23.4] Diagnosis: Chronic kidney disease, stage 3 (moderate)[ICD10: N18.3] Virginie Isaac MD, [facility] CPT-4: 17990 05/05/2017 ([id number]) Miscellaneous no charge Diagnosis: Abnormal weight loss[ICD10: R63.4] Virginie Isaac MD [facility] CPT-4: 06685 2017 ([id number]) Miscellaneous no charge Diagnosis: Abnormal weight loss[ICD10: R63.4] Virginie Isaac MD, [facility] CPT-4: 97493 03/03/2017 ([id number]) 49029 EST. PATIENT, LEVEL III Diagnosis: Type 2 diabetes mellitus with hyperglycemia[ICD10: E11.65] Diagnosis: Essential (primary) hypertension[ICD10: I10] Virginie Isaac MD [facility] CPT-4: 15915 02/02/2017 ([id number]) 90727 EST. PATIENT, LEVEL IV Diagnosis: Type 2 diabetes mellitus with hyperglycemia[ICD10: E11.65] Diagnosis: Essential (primary) hypertension[ICD10: I10] Diagnosis: Chronic kidney disease, stage 3 (moderate)[ICD10: N18.3] Virginie Isaac MD [facility] CPT-4: 37756 01/04/2017 ([id number]) 43561 EST. PATIENT, LEVEL IV Diagnosis: Type 2 diabetes mellitus with hyperglycemia[ICD10: E11.65] Diagnosis: Essential (primary) hypertension[ICD10: I10] Diagnosis: Chronic kidney disease, stage 3 (moderate)[ICD10: N18.3] Diagnosis: Elevated prostate specific antigen [PSA][ICD10: R97.20] Virginie Isaac MD [facility] CPT-4: 21559 11/16/2016 ([id number]) 67914 EST. PATIENT, LEVEL IV Diagnosis: Essential (primary) hypertension[ICD10: I10] Diagnosis: Type 2 diabetes mellitus with hyperglycemia[ICD10: E11.65] Diagnosis: Mixed hyperlipidemia[ICD10: E78.2] Virginie Isaac MD [facility] CPT-4: 66822 07/19/2016 ([id number]) 33336 EST. PATIENT, LEVEL IV Diagnosis: Type 2 diabetes mellitus with hyperglycemia[ICD10: E11.65] Diagnosis: Essential (primary) hypertension[ICD10: I10] Diagnosis: Mixed hyperlipidemia[ICD10: E78.2] Virginie Isaac MD [facility] CPT-4: 80016 03/10/2016 ([id number]) 88970 EST. PATIENT, LEVEL III Diagnosis: Essential (primary) hypertension[ICD10: I10] Diagnosis: Type 2 diabetes mellitus with hyperglycemia[ICD10: E11.65] Diagnosis: Hyperlipidemia, unspecified[ICD10: E78.5] Virginie Isaac MD [facility] CPT-4: 07630 11/06/2015 ([id number]) Miscellaneous no charge Diagnosis: Essential (primary) hypertension[ICD10: I10] Scarlett Isaac MD [facility] CPT-4: 14318 09/09/2015 ([id number]) 17002 EST. PATIENT, LEVEL III Diagnosis: Essential (primary) hypertension[ICD10: I10] Diagnosis: Other skin changes[ICD10: R23.8] Virginie Isaac MD [facility] CPT-4: 64169 08/26/2015 ([id number]) 74631 EST. PATIENT, LEVEL IV Diagnosis: Essential (primary) hypertension[ICD10: I10] Diagnosis: Unspecified amblyopia, right eye[ICD10: H53.001] Diagnosis: Other skin changes[ICD10: R23.8] Virginie Isaac MD [facility] CPT-4: 82750 07/29/2015 ([id number]) 73533 EST. PATIENT, LEVEL IV Diagnosis: Type 2 diabetes mellitus with hyperglycemia[ICD10: E11.65] Diagnosis: Essential (primary) hypertension[ICD10: I10] Diagnosis: Hyperlipidemia, unspecified[ICD10: E78.5] [facility] CPT-4: 38688 04/29/2015 ([id number]) OFFICE VISIT, NEW - LEVEL 4 Diagnosis: ESSENTIAL HYPERTENSION[ICD9: 401.9] Diagnosis: DIABETES TYPE II[ICD9: 250.00] Diagnosis: ACTINIC KERATOSIS[ICD9: 702.0] Diagnosis: Impacted cerumen[ICD9: 380.4] Virginie Isaac MD, [facility] CPT- 4: 48135 10/23/2014 Plan of Care Planned Activity Notes [...] DOPA paperwork for health care surrogate. 03/20/2018 [facility]ment[phone] [facility] [facility] - Annual Wellness Visit 03/20/2018 Patient Education: Patient Medication Summary Completed [...] on posterior scalp and one on left yarsanism. 03/07/2018 Visit Plan: Hypertension -at home, blood [...] - symptoms improved after stopping hctz. 03/07/2018 Appointment: Virginie Isaac WPtel: [address] [place], [place] [address] (15 min) Moderate 03/07/2018 Patient Education: Patient [...] recommended that he needs to see a Filter Worker, but Suleman is not interested at this time. He has agreed to have repeat bmp in one month off of the hctz and to start on renal diet. Prostate cancer - continue with plans to be seen by Dr. Modi at the cancer center. 01/30/2018 App[facility]ment: [phone] [facility] (15 min) Moderate 01/30/2018 Patient Education: Patient Medication Summary Completed 01/30/2018 Appointment: Virgin[facility] Isaac [facility]Ptel[facility] [phone] [facility] (15 min) Moderate 01/10/2018 Visit Plan: Diabetes [...] pt is not interested in seeing a Filter Worker as has been recommended to patient. 09/07/2017 Appointment: Virgin[facility] Isaac WPtel[facility] [phone] [facility] [place] (15 min) Moderate 09/07/2017 Patient Education: [...] pt is not interested in seeing a Filter Worker as has been recommended to patient. Elevated PSA -pt seeing Dr. Harrison. 05/05/2017 Appointment: Virginie Isaac WPtel: [facility] (15 min) Moderate 05/05/2017 Patient Education: Patient Medication Summary Completed 05/05/2017 Appointment: Scarlett Omalley WPtel: [address] [place], [place] [id number] (15 min) Moderate 04/14/2017 Appointment: Nurse Visit [...] care surrogate. 03/15/2017 Appointment: Niecy Sullivan WPtel: [phone] [facility] - Annual Wellness Visit 03/15/2017 [...] home. 02/02/2017 Appointment: Virginie Isaac WPtel: [phone] [facility] (15 min) Moderate 02/02/2017 Patient Education: Patient [...] Hypertension Completed 01/04/2017 Appointment: Virgin[facility] Isaac WPtel[facility] [phone] [facility] (15 min) Moderate 12/23/2016 Appointment: Virgin[facility] Isaac WPtel[facility] [phone] [facility] (15 min) Moderate 12/22/2016 Visit Plan: [...] orange juice. 11/16/2016 Appointment: Virginie Isaac WPtel: [facility] (15 min) Moderate 11/16/2016 Patient Education: Patient [...] to medications. 07/19/2016 Appointment: Virginie Isaac WPtel: [facility] (15 min) Moderate 07/19/2016 Patient Education: Patient Medication Summary Completed 07/19/2016 Patient Education: Obesity Completed 07/19/2016 Patient Education: Hypertension Completed 07/19/2016 Appointment: Virginie Isaac WPtel: [phone] [facility] (15 min) Moderate 07/06/2016 Visit Plan: [...] care surrogate. 03/12/2016 Appointment: Niecy Sullivan WPtel: [phone] [phone] [place] [address] - Annual Wellness Visit 03/12/2016 Patient Education: [...] hs 03/10/2016 Appointment: Virgin[facility] Isaac WPtel[facility] [phone] [facility] (15 min) Moderate 03/10/2016 Patient Education: [...] Obesity Completed 11/06/2015 Appointment: [facility]el[phone] [phone] (30 min) Complex 10/27/2015 Appointment: Nurse Visit [...] have repeat treatment - one on left yarsanism and one on posterior scalp. 08/26/2015 Patient Education: Patient Medication Summary Completed 08/26/2015 Patient Education: Hypertension Completed 08/26/2015 Referral: Tariq Ramirez WPtel: [address] [place], [place] [address] Referral Completed 08/05/2015 Visit Plan: Hypertension - [...] of efudex. 07/29/2015 Appointment: Virginie Isaac WPtel: [address] [place], [place] [address] (15 min) Moderate 07/29/2015 Patient Education: Patient Medication Summary Completed 07/29/2015 Patient Education: Obesity Completed 07/29/2015 Patient Education: Hypertension Completed 07/29/2015 Care Plan: Referral Order SNOMED-CT : [id number] Pending 07/29/2015 Patient Education: Patient Medication Summary [...] Care Plan: COMPLETE CBC AUTOMATED LOINC : 81667-8 Ordered 04/29/2015 Care Plan: MICROALBUMIN QUANTITATIVE LOINC : 81872-8 Ordered 04/29/2015 Appointment: (15 min) Moderate 03/31/2015 Appointment: Virginie Isaac WPtel: [phone] [facility] (15 min) Moderate 01/22/2015 Visit Plan: [...] office visit. 10/23/2014 Appointment: Virginie Isaac WPtel: [phone] [facility] [place] ([place]) New Patient 10/23/2014 Patient Education: Patient Medication Summary Completed 10/23/2014 Patient Education: Hypertension Completed 10/23/2014 Referral: Tariq Ramirez WPtel: [address] [place], [place] [address] Referral Appointment Requested Instructions Comment . Hypertension - well controlled - continue [...] pt is not interested in seeing a Filter Worker as has been recommended to patient. Elevated [...] controlled. Hyperlipidemia - continue with simvastatin. . Medicare Exam - today we discussed [...] DOPA paperwork for health care surrogate. . Medicare Exam - today we discussed [...] have repeat treatment - one on left yarsanism and one on posterior scalp. . Hypertension [...] on posterior scalp and one on left yarsanism. use sweet oil, or olive oil, or [...] improves or until next office visit. . Medicare Exam - today we discussed [...] recommended that he needs to see a Filter Worker, but Suleman is not interested at this time. He has agreed to have repeat bmp in one month off of the hctz and to start on renal diet. Prostate cancer - continue with plans to be seen by Dr. Modi at the cancer center. stop METFORMIN and also STOP MELOXICAM - [...] is no sugar added orange juice. . Diabetes Mellitus - controlled - per [...] change in blood pressure readings at home. increase the bisoprolol/hctz to one pill twice [...] - recommended use of efudex. . Hypertension -at home, blood pressure is [...] CKD - symptoms improved after stopping hctz. get labs one week before your appt [...] to assure normal liver response to medications. pt to have hgba1c one week before [...] pt is not interested in seeing a Filter Worker as has been recommended to patient.
[2018-06-09] MEDS ORDERED: POVIDONE (BETADINE) OPHTH SOLN 5% 30 ML OP ONE (10:15)
[2018-06-09] MEDS ORDERED: MOXIFLOXACIN OPHTH SOLN 5 MG/ML 0.3 ML SYRINGE OP ONE (10:15)
[2018-06-09] MEDS ORDERED: TIMOLOL MALEATE 0.5% 5 ML (TIMOPTIC) BTL OU PRN (10:15)
[2018-06-09] MEDS ORDERED: LIDOCAINE PF 1% 2 ML AMP IR PRN (10:15)
[2018-06-09] MEDS: TETRACAINE 0.5% OPHTH SOLN 4 ML BTL (SINGLE DOSE ONLY) OU PRN ×4 (10:19→10:44)
--- OUTSIDE RECORDS SUMMARY | 2018-06-09 10:19 | XMS REPORT | Continuity of Care Document ---
Author Author [facility] Organization [facility] Address Unknown Phone Unavailable Allergies Active Description Code Type Severity Reaction Onset Reported/Identified Relationship to Patient Clinical Status Yes No Known Drug Allergies [id number] Drug Allergy Unknown N/A 03/09/2018 Medications There [...] 05/10/2017 SACHI KNIGHT DO Ot Z79.899 OTHER RETIREMENT (CURRENT) DRUG THERAPY 05/14/2017 SACHI KNIGHT DO D Ot C44.629 SQUAMOUS CELL CARCINOMA SKIN/ LEFT UPPER 05/14/2017 SACHI KNIGHT DO D Ot E11.9 TYPE 2 DIABETES MELLITUS WITHOUT COMPLIC 05/14/2017 GRACE KNIGHT DOTT D Ot I10 ESSENTIAL (PRIMARY) HYPERTENSION 05/14/2017 SACHI KNIGHT DO D Ot 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 05/14/2017 SACHI KNIGHT DO Ot Z79.899 OTHER RETIREMENT (CURRENT) DRUG THERAPY 05/15/2017 SACHI KNIGHT DO [...] 05/21/2017 SACHI KNIGHT DO Ot Z79.899 OTHER RETIREMENT (CURRENT) DRUG THERAPY 07/21/2017 JAZMINE AVILEZ MD [...] BACTER 08/03/2017 JAZMINE AVILEZ MD Ot Z79.84 RETIREMENT (CURRENT) USE OF ORAL HYPOGLYC 08/10/2017 JAZMINE [...] BACTER 08/10/2017 JAZMINE AVILEZ MD Ot Z79.84 RETIREMENT (CURRENT) USE OF ORAL HYPOGLYC 08/15/2017 JAZMINE [...] MD Ot I10 ESSENTIAL (PRIMARY) HYPERTENSION 03/14/2018 JAZMINE AVILEZ MD Ot Z79.84 STITCH CLEANER (CURRENT) USE OF ORAL HYPOGLYC 03/14/2018 JAZMINE AVILEZ MD Ot Z79.899 OTHER STITCH CLEANER (CURRENT) DRUG THERAPY 03/17/2018 JAZMINE AVILEZ MD Ot C61 MALIGNANT NEOPLASM OF PROSTATE 03/17/2018 JAZMINE AVILEZ MD Ot E11.9 TYPE 2 DIABETES MELLITUS WITHOUT COMPLIC 03/17/2018 JAZMINE AVILEZ MD Ot I10 ESSENTIAL (PRIMARY) HYPERTENSION 03/17/2018 JAZMINE AVILEZ MD Ot Z79.84 STITCH CLEANER (CURRENT) USE OF ORAL HYPOGLYC 03/17/2018 JAZMINE AVILEZ MD, Ot Z79.899 OTHER RETIREMENT (CURRENT) DRUG THERAPY 03/20/2018 JAZMINE AVILEZ MD Ot C61 MALIGNANT NEOPLASM OF PROSTATE 03/20/2018 JAZMINE AVILEZ MD Ot E11.9 TYPE 2 DIABETES MELLITUS WITHOUT COMPLIC 03/20/2018 JAZMINE AVILEZ MD Ot I10 ESSENTIAL (PRIMARY) HYPERTENSION 03/20/2018 JAZMINE AVILEZ MD Ot Z79.84 RETIREMENT (CURRENT) USE OF ORAL HYPOGLYC 03/20/2018 JAZMINE AVILEZ MD Ot Z79.899 OTHER STITCH CLEANER (CURRENT) DRUG THERAPY 03/31/2018 GREGORY BECERRA MD Ot C61 MALIGNANT NEOPLASM OF PROSTATE 03/31/2018 GREGORY BECERRA MD Ot E11.9 TYPE 2 DIABETES MELLITUS WITHOUT COMPLIC 03/31/2018 GREGORY BECERRA MD Ot I10 ESSENTIAL (PRIMARY) HYPERTENSION 03/31/2018 GREGORY BECERRA MD Ot N40.0 BENIGN PROSTATIC HYPERPLASIA WITHOUT LOW 03/31/2018 GREGORY BECERRA MD Ot Z79.84 STITCH CLEANER (CURRENT) USE OF ORAL HYPOGLYC 04/13/2018 GREGORY BECERRA MD Ot C61 MALIGNANT NEOPLASM OF PROSTATE 04/13/2018 GREGORY BECERRA MD Ot E11.9 TYPE 2 DIABETES MELLITUS WITHOUT COMPLIC 04/13/2018 GREGORY BECERRA MD Ot I10 ESSENTIAL (PRIMARY) HYPERTENSION 04/13/2018 GREGORY BECERRA MD Ot N40.0 BENIGN PROSTATIC HYPERPLASIA WITHOUT LOW 04/13/2018 GREGORY BECERRA MD Ot Z79.84 RETIREMENT (CURRENT) USE OF ORAL HYPOGLYC 05/02/2018 KARYNA RAMIREZ MD Ot Z01.818 ENCOUNTER FOR OTHER PREPROCEDURAL EXAMIN 05/05/2018 KARYNA RAMIREZ MD Ot E11.36 TYPE 2 DIABETES MELLITUS WITH DIABETIC C 05/05/2018 KARYNA RAMIREZ MD Ot E78.00 PURE HYPERCHOLESTEROLEMIA, UNSPECIFIED 05/05/2018 KARYNA RAMIREZ MD Ot H25.11 AGE-RELATED NUCLEAR CATARACT, RIGHT EYE 05/05/2018 KARYNA RAMIREZ MD Ot I10 ESSENTIAL (PRIMARY) HYPERTENSION 05/05/2018 KARYNA RAMIREZ MD Ot Z79.84 STITCH CLEANER (CURRENT) USE OF ORAL HYPOGLYC 05/05/2018 KARYNA RAMIREZ MD Ot Z79.899 OTHER RETIREMENT (CURRENT) DRUG THERAPY 05/08/2018 GREGORY BECERRA MD Ot C61 MALIGNANT NEOPLASM OF PROSTATE 05/08/2018 GREGORY BECERRA MD Ot E11.9 TYPE 2 DIABETES MELLITUS WITHOUT COMPLIC 05/08/2018 GREGORY BECERRA MD Ot I10 ESSENTIAL (PRIMARY) HYPERTENSION 05/08/2018 GREGORY BECERRA MD Ot N40.0 BENIGN PROSTATIC HYPERPLASIA WITHOUT LOW 05/08/2018 GREGORY BECERRA MD Ot Z79.84 STITCH CLEANER (CURRENT) USE OF ORAL HYPOGLYC 05/08/2018 KARYNA RAMIREZ MD Ot E11.36 TYPE 2 DIABETES MELLITUS WITH DIABETIC C 05/08/2018 KARYNA RAMIREZ MD Ot E78.00 PURE HYPERCHOLESTEROLEMIA, UNSPECIFIED 05/08/2018 KARYNA RAMIREZ MD Ot H25.11 AGE-RELATED NUCLEAR CATARACT, RIGHT EYE 05/08/2018 KARYNA RAMIREZ MD Ot I10 ESSENTIAL (PRIMARY) HYPERTENSION 05/08/2018 KARYNA RAMIREZ MD Ot Z79.84 RETIREMENT (CURRENT) USE OF ORAL HYPOGLYC 05/08/2018 KARYNA RAMIREZ MD Ot Z79.899 OTHER STITCH CLEANER (CURRENT) DRUG THERAPY 05/09/2018 GREGORY BECERRA MD Ot C61 MALIGNANT NEOPLASM OF PROSTATE 05/09/2018 GREGORY BECERRA MD Ot E11.9 TYPE 2 DIABETES MELLITUS WITHOUT COMPLIC 05/09/2018 GREGORY BECERRA MD Ot I10 ESSENTIAL (PRIMARY) HYPERTENSION 05/09/2018 GREGORY BECERRA MD Ot N40.0 BENIGN PROSTATIC HYPERPLASIA WITHOUT LOW 05/09/2018 GREGORY BECERRA MD Ot Z51.0 ENCOUNTER FOR ANTINEOPLASTIC RADIATION T 05/09/2018 GREGORY BECERRA MD Ot Z79.84 RETIREMENT (CURRENT) USE OF ORAL HYPOGLYC 05/10/2018 GREGORY BECERRA MD Ot C61 MALIGNANT NEOPLASM OF PROSTATE 05/10/2018 GREGORY BECERRA MD Ot E11.9 TYPE 2 DIABETES MELLITUS WITHOUT COMPLIC 05/10/2018 GREGORY BECERRA MD Ot I10 ESSENTIAL (PRIMARY) HYPERTENSION 05/10/2018 GREGORY BECERRA MD Ot N40.0 BENIGN PROSTATIC HYPERPLASIA WITHOUT LOW 05/10/2018 GREGORY BECERRA MD Ot Z79.84 STITCH CLEANER (CURRENT) USE OF ORAL HYPOGLYC 05/11/2018 KARYNA RAMIREZ MD Ot E11.36 TYPE 2 DIABETES MELLITUS WITH DIABETIC C 05/11/2018 KARYNA RAMIREZ MD Ot E78.00 PURE HYPERCHOLESTEROLEMIA, UNSPECIFIED 05/11/2018 KARYNA RAMIREZ MD Ot H25.11 AGE-RELATED NUCLEAR CATARACT, RIGHT EYE 05/11/2018 KARYNA RAMIREZ MD, Ot I10 ESSENTIAL (PRIMARY) HYPERTENSION 05/11/2018 KARYNA RAMIREZ MD, Ot Z79.84 STITCH CLEANER (CURRENT) USE OF ORAL HYPOGLYC 05/11/2018 KARYNA RAMIREZ MD, Ot Z79.899 OTHER STITCH CLEANER (CURRENT) DRUG THERAPY 05/15/2018 KARYNA RAMIREZ MD Ot Z01.818 ENCOUNTER FOR OTHER PREPROCEDURAL EXAMIN 06/06/2018 KARYNA RAMIREZ MD Ot Z01.818 ENCOUNTER FOR OTHER PREPROCEDURAL EXAMIN 06/07/2018 KARYNA RAMIREZ MD Ot Z01.818 ENCOUNTER FOR OTHER PREPROCEDURAL EXAMIN 06/07/2018 KARYNA RAMIREZ MD Ot Z01.818 ENCOUNTER FOR OTHER PREPROCEDURAL EXAMIN 06/08/2018 KARYNA RAMIREZ MD, Ot Z01.818 ENCOUNTER FOR OTHER PREPROCEDURAL [...] measurement by glucometer (mass/volume) 101 mg/dL 70-110 [id number] - 08/12/17 11:03 Serum or plasma urea [...] blood glucose measurement by glucometer (mass/volume) - 05/05/18 11: 02 Capillary blood glucose measurement by glucometer (mass/volume) 154 mg/dL 70-110 Encounters ACCT No. Visit Date/Time Discharge Status Pt. Type Provider Facility Loc./Unit Complaint [id number] 06/05/2018 06:18:00 06/07/2018 14:24:00 DIS Outpatient KARYNA RAMIREZ MD [facility] PREOP LEFT CATARACT [id number] 05/19/2018 11:30:00 05/19/2018 23:59:59 CLS Preadmit KARYNA RAMIREZ MD [facility] CATARACT LEFT EYE [id number] 05/12/2018 06:23:00 05/12/2018 23:59:59 CLS Outpatient KARYNA RAMIREZ MD [facility] PREOP LEFT CATARACT [id number] 05/08/2018 10:57:00 05/08/2018 00:01:00 DIS Outpatient GREGORY BECERRA MD [facility] ONC [id number] 05/05/2018 10:36:00 05/05/2018 12:07:00 DIS Outpatient KARYNA RAMIREZ MD [facility] RIGHT CATARACT [id number] 05/02/2018 06:25:00 05/02/2018 15:24:00 DIS Outpatient KARYNA RAMIREZ MD [facility] PREOP RIGHT CATARACT [id number] 03/14/2018 05:58:00 03/14/2018 10:25:00 DIS Outpatient JAZMINE AVILEZ MD [facility] PROSTATE CANCER [id number] 03/09/2018 05:59:00 03/09/2018 13:00:00 DIS Outpatient JAZMINE AVILEZ MD [facility] PREOP PROSTATE CANCER [id number] 08/12/2017 10:41:00 08/12/2017 23:59:59 CLS Outpatient JAZMINE AVILEZ MD [facility] RAD CA OF PROSTATE [id number] 08/08/2017 10:58:00 08/08/2017 23:59:59 CLS Preadmit JAZMINE AVILEZ MD [facility] RAD CA OF PROSTATE [id number] 08/03/2017 06:00:00 08/03/2017 09:25:00 DIS Outpatient JAZMINE AVILEZ MD [facility] BPH, ELEVATED PSA [id number] 07/28/2017 12:50:00 07/28/2017 13:04:00 DIS Outpatient JAZMINE AVILEZ MD [facility] PREOP CYSTO, PROSTATE BIOPSY [id number] 05/10/2017 13:05:00 05/10/2017 16:25:00 DIS Outpatient SACHI KNIGHT DO [facility] SKIN LESION LEFT ARM X2 [id number] 05/09/2017 05:50:00 05/09/2017 10:56:00 DIS Outpatient SACHI KNIGHT DO [facility] PREOP SKIN LESION LEFT ARM X2 [id number] 04/25/2017 15:00:00 04/25/2017 23:59:59 CLS [facility]readmit [facility] [id number] 01/24/2017 14:42:00 04/24/2017 00:01:00 DIS Outpatient [facility] DIAB[facility] [id number] 02/06/2013 14:55:00 02/06/2013 23:59:59 CLS Outpatient JAZMINE AVILEZ MD [facility] RAD HEMATURIA [id number] 06/09/2018 11:30:00 PEN Preadmit KARYNA RAMIREZ MD [facility] CATARACT LEFT EYE [id number] 06/08/2018 10:53:00 ACT Outpatient GREGORY BECERRA MD [facility] ONC [id number] 02/02/2017 14:53:08 02/02/2017 23:59:59 [facility] Outpatient
[2018-06-09] MEDS: CYCLOPENTOLATE 1% (CYCLOGYL) 2 ML DROPS OP SCH ×3 (10:31→10:44)
[2018-06-09] MEDS: PHENYLEPHRINE 10% OPHTH (NEO-SYN) 5 ML BTL OU SCH ×3 (10:31→10:44)
--- NOTE | 2018-06-09 10:38 | Ophthalmologist Pre-Op Note ---
Pre-Operative Progress Note H&P Reviewed The H&P was reviewed, patient examined and no changes noted. Date H&P Reviewed: Jun 09, 2018 Time H&P Reviewed: 10:38 Pre-Op Dx Secondary Cataract, Right Eye KARYNA RAMIREZ MD Jun 09, 2018 10:38
[2018-06-09] MEDS ORDERED: MIDAZOLAM 2 MG/2 ML (VERSED) VIAL ONE (10:49)
--- NOTE | 2018-06-09 11:12 | Ophthalmology Operative Report ---
Cataract, Miotic Pupil PREOPERATIVE DIAGNOSIS: 1. Cataract Left Eye 2. Miotic Pupil POSTOPERATIVE DIAGNOSIS: 1. Cataract Left Eye 2. Miotic Pupil PROCEDURE: 1. Cataract removal and placement of posterior chamber implant, left eye 2. Pupillary expansion with malyugin ring SURGEON: Aldo Ramirez ANESTHESIA: Topical with sedation COMPLICATIONS: None ESTIMATED BLOOD LOSS: Minimal DESCRIPTION OF PROCEDURE: After proper informed consent was obtained, the patient, a 78 male, was taken to the Operating Room and the left eye was anesthetized with Tetracaine. The eye was then prepped and draped in the usual manner. A wire lid speculum was placed. A paracentesis was made at the left hand position. Preservative free lidocaine was injected into anterior chamber followed by viscoelastic. A clear corneal incision was made in the temporal position. The malyugin ring was injected into the anterior chamber and the pupil was dilated. A capsulorrhexis was preformed and the central nuclear and cortical material were removed. The posterior capsule was polished and Maxime 20.0 [id number] IOL was placed into the capsular bag. The myalgian ring was removed. The residual viscoelastic was aspirated and the balanced saline solution was injected into the anterior chamber. Moxifloxacin was injected into the anterior chamber. The wound was checked and found to be water tight. The patient tolerated the procedure well without complications. [Limbal Relaxing Incision placed ] [ ]mm at [ ]. ALDO RAMIREZ MD Jun 09, 2018 11:12
--- NOTE | 2018-06-09 11:13 | Anesthesia-General Post-Op ---
MAC Patient Condition Mental Status/LOC: Same as Preop Cardiovascular: Satisfactory Nausea/Vomiting: Absent Respiratory: Satisfactory Pain: Controlled Complications: Absent Post Op Complications Complications None Follow Up Care/Instructions Patient Instructions None needed. Anesthesiology Discharge Order Discharge Order Patient is doing well, no complaints, stable vital signs, no apparent adverse anesthesia problems. No complications reported per nursing. SARWAT LANDAVERDE CRNA Jun 09, 2018 11:13
[2018-06-09 11:20] VITALS: BP 148/72
[2018-06-09] MEDS ORDERED: acetaZOLAMIDE ER 500 MG CAP (DIAMOX SEQUELS) PO ONE (11:30)
== END 2018-06-09 11:20 | disposition home or self-care (01) ==
LOC: SDC 09:57
PROVIDERS: ATTEND Specialist
DX: H25.12 Age-related nuclear cataract, left eye (principal); H57.03 Miosis; E11.36 Type 2 diabetes mellitus with diabetic cataract; I10 Essential (primary) hypertension; E78.00 Pure hypercholesterolemia, unspecified; Z79.84 Long term (current) use of oral hypoglycemic drugs; Z79.899 Other long term (current) drug therapy

== ENCOUNTER 2018-06-29 10:52 | Outpatient (RCR) | payer MEDICARE ==
[2018-07-31] MEDS ORDERED: HYDR-87 PO (03:14)
[2018-07-31] MEDS ORDERED: ONDA8TAB13 PO (03:14)
[2018-07-31] MEDS ORDERED: CEFD300C3 PO (03:14)
== END 2018-08-07 | disposition home or self-care (01) ==
LOC: ONC 10:52
PROVIDERS: ATTEND Radiology Radiation Oncology
DX: Z51.0 Encounter for antineoplastic radiation therapy (principal); C61 Malignant neoplasm of prostate; I10 Essential (primary) hypertension; E11.9 Type 2 diabetes mellitus without complications; N40.0 Benign prostatic hyperplasia without lower urinary tract symptoms; Z79.84 Long term (current) use of oral hypoglycemic drugs
CPT/HCPCS: 77336; 77385

== ENCOUNTER 2018-07-31 00:44 | Emergency (ER) | payer MEDICARE ==
[~2018-07-31] VITALS: Ht 167.6 cm; Wt 77.6 kg
--- OUTSIDE RECORDS SUMMARY | 2018-07-31 00:52 | XMS REPORT | CCD ---
Author Author [facility] Organization [facility] Address [address] [place] [address] Phone Care Team Providers [facility] Director Name Role Phone PP Unavailable CCM Unavailable Summary Purpose Interface Exchange Insurance Providers Payer name Policy type / Coverage type Covered alliance party ID Effective Begin Date Effective End Date WPS Medicare Part B Medicare Part B [id number] 2018 Unknown [facility] Medicare Part B No Plan Member [...] self employed 10/23/[address]: 342545601 Never smoker 10/23/[address]: 093570009 Never drinks alcohol 10/23/2014 Allergies, Adverse Reactions, Alerts Substance Reaction Codes Entered Date Inactivated Date Status * NO KNOWN DRUG ALLERGIES Unknown 10/23/2014 No Inactive Date Active Past Medical History Illness Codes Condition Status Onset Date Resolved Date Cough ICD-9: 786.2 ICD-10: R05 Active 07/25/2018 Unknown Essential (primary) hypertension ICD-9: 401.1 ICD-10: I10 Active 05/05/2017 Unknown Other allergic rhinitis ICD-9: 477.8 ICD-10: J30.89 Active 07/25/2018 Unknown Type 2 diabetes mellitus with hyperglycemia ICD-9: 250.00 ICD-10: E11.65 Active 10/22/2014 Unknown Encounter for general adult medical examination with abnormal findings ICD-9: V70.0 ICD-10: Z00.01 Active 03/15/2017 Unknown Actinic keratosis ICD- 9: 702.0 ICD-10: L57.0 Active 03/07/2018 Unknown Chronic kidney disease, stage 3 (moderate) ICD-9: 585.3 ICD-10: N18.3 Active 11/16/2016 Unknown Malignant neoplasm of prostate ICD-9: 185 [...] Problems Condition Codes Effective Dates Condition Status Cough ICD-9: 786.2 ICD-10: R05 07/25/2018 Active Essential (primary) hypertension ICD-9: 401.1 ICD-10: I10 05/05/2017 Active Other allergic rhinitis ICD-9: 477.8 ICD-10: J30.89 07/25/2018 Active Type 2 diabetes mellitus with hyperglycemia ICD-9: 250.00 ICD-10: E11.65 10/22/2014 Active Encounter for general adult medical examination with abnormal findings ICD-9: V70.0 ICD-10: Z00.01 03/15/2017 Active Actinic keratosis ICD- 9: 702.0 ICD-10: L57.0 03/07/2018 Active Chronic kidney disease, stage 3 (moderate) ICD-9: 585.3 ICD-10: N18.3 11/16/2016 Active Malignant neoplasm of prostate ICD-9: 185 [...] Start Date Stop Date Status Fill Instructions Mucinex 1,200 mg tablet, extended release RxNorm: 054219 1 Tablet(s) PO BID 07/25/2018 08/03/2018 Active Kenalog 40 mg/mL suspension for injection RxNorm: 5896132 Milliliter(s) Inj 07/25/2018 07/25/2018 Inactive losartan 100 mg tablet RxNorm: 519359 TAKE 1 TABLET BY MOUTH DAILY 06/02/2018 12/28/2018 Active Generic For:COZAAR 100MG 06/02/2018 4:25:21 PM glimepiride 2 mg tablet RxNorm: 536853 TAKE 1/2 (ONE- HALF) TABLET BY MOUTH TWICE DAILY 06/02/2018 11/28/2018 Active Generic For:AMARYL 2MG 06/02/2018 4:25:26 PM simvastatin 20 mg tablet RxNorm: 635540 TAKE ONE TABLET BY MOUTH DAILY 03/06/2018 11/30/2018 Active Generic For:ZOCOR 20MG 03/06/2018 9:01:27 AM Truetest Test Strips RxNorm: TEST BLOOD SUGAR EVERY DAY 201711/26/2018 Active 01/30/2018 3:29:14 PM bisoprolol fumarate 5 mg tablet RxNorm: 919467 1 Tablet(s) PO BID 01/30/2018 08/27/2018 Active this replaces his combination pill glimepiride 2 mg tablet RxNorm: 224363 TAKE 1/2 (ONE- HALF) TABLET BY MOUTH TWICE DAILY 12/06/2017 06/01/2018 Inactive Generic For:AMARYL 2MG 12/06/2017 9:07:06 AM losartan 100 mg tablet RxNorm: 966907 TAKE 1 TABLET BY MOUTH DAILY 11/07/2017 06/01/2018 Inactive Generic For:COZAAR 100MG 11/07/2017 9:05:45 AM bisoprolol 5 mg-hydrochlorothiazide 6.25 mg tablet RxNorm: 727013 TAKE 1 TABLET BY MOUTH TWICE DAILY 09/15/20172017 Inactive Generic For:ZIAC 5-6.25MG 09/15/2017 9:07:10 AM glimepiride 2 mg tablet RxNorm: 191971 TAKE 1/2 (ONE- HALF) TABLET BY MOUTH TWICE DAILY 06/17/2017 12/05/2017 Inactive Generic For:AMARYL 2MG 06/17/2017 9:01:41 AM simvastatin 20 mg tablet RxNorm: 974083 TAKE ONE TABLET BY MOUTH DAILY 06/17/2017 03/05/2018 Inactive Generic For:ZOCOR 20MG 06/17/2017 9:01:38 AM losartan 100 mg tablet RxNorm: 906327 TAKE 1 TABLET BY MOUTH DAILY 04/18/2017 11/06/2017 Inactive Generic For:COZAAR 100MG 04/18/2017 9:40:33 AM bisoprolol 5 mg-hydrochlorothiazide 6.25 mg tablet RxNorm: 890816 TAKE 1 TABLET BY MOUTH TWICE DAILY 02/17/20172017 Inactive Generic For:ZIAC 5-6.25MG 02/17/2017 9:04:42 AM glimepiride 2 mg tablet RxNorm: 043429 1/2 Tablet(s) BID 201606/16/2017 Inactive Generic For:AMARYL 2MG 07/22/2016 9:03:39 AM Zithromax 250 mg tablet RxNorm: 525447 two pills on day #1 then 1 Tablet(s) PO daily 01/04/2017 01/08/2017 Inactive zpackx1 glimepiride 2 mg tablet RxNorm: 393227 1 Tablet(s) TAKE 1 TABLET BY MOUTH TWICE DAILY 11/17/2016 02/01/2017 Inactive Generic For:AMARYL 2MG 07/22/2016 9:03:39 AM glimepiride 2 mg tablet RxNorm: 479811 1 Tablet(s) TAKE 1 TABLET BY MOUTH TWICE DAILY 11/17/2016 11/16/2016 Inactive Generic For:AMARYL 2MG 07/22/2016 9:03:39 AM Ness Allergy 180 mg tablet RxNorm: 939059 1 Tablet(s) PO daily 10/25/2016 10/24/2016 Inactive Zithromax 250 mg tablet RxNorm: 701671 1 Tablet(s) PO daily 10/24/2016 Inactive zpackx1 Ness Allergy 180 mg tablet RxNorm: 812912 1 Tablet(s) PO daily 10/25/2016 03/07/2017 Inactive Zithromax 250 mg tablet RxNorm: 780038 1 Tablet(s) PO daily 10/29/2016 Inactive zpackx1 glimepiride 2 mg tablet RxNorm: 804568 1/2 Tablet(s) TAKE 1 TABLET BY MOUTH TWICE DAILY 10/12/2016 11/16/2016 Inactive Generic For:AMARYL 2MG 07/22/2016 9:03:39 AM losartan 100 mg tablet RxNorm: 773394 1 Tablet(s) PO daily 04/17/2017 Inactive metformin 500 mg tablet RxNorm: 079043 TAKE 1 TABLET BY MOUTH TWICE DAILY 09/20/2016 11/15/2016 Inactive Generic For:GLUCOPHAGE 500MG 09/20/2016 9:11:58 AM simvastatin 20 mg tablet RxNorm: 251866 TAKE ONE TABLET BY MOUTH DAILY 09/20/2016 06/16/2017 Inactive Generic For:ZOCOR 20MG 09/20/2016 9:11:29 AM bisoprolol 5 mg-hydrochlorothiazide 6.25 mg tablet RxNorm: 009005 TAKE 1 TABLET BY MOUTH TWICE DAILY 07/22/20162016 Inactive Generic For:ZIAC 5-6.25MG 07/22/2016 9:03:48 AM glimepiride 2 mg tablet RxNorm: 272662 TAKE 1 TABLET BY MOUTH TWICE DAILY 07/22/2016 10/11/2016 Inactive Generic For:AMARYL 2MG 07/22/2016 9:03:39 AM meloxicam 15 mg tablet RxNorm: 562375 TAKE 1 TABLET BY MOUTH DAILY 05/24/2016 11/15/2016 Inactive Generic For:MOBIC 15MG 05/24/2016 9:12:11 AM metformin 500 mg tablet RxNorm: 384529 1 Tablet(s) BID 201609/19/2016 Inactive Generic For:GLUCOPHAGE 500MG 04/29/2015 3:46:58 PM bisoprolol 5 mg-hydrochlorothiazide 6.25 mg tablet RxNorm: 073284 TAKE 1 TABLET BY MOUTH TWICE DAILY 03/31/20162016 Inactive Generic For:ZIAC 5-6.25MG 03/31/2016 12:38:33 PM glimepiride 2 mg tablet RxNorm: 604358 TAKE 1 TABLET BY MOUTH TWICE DAILY 03/31/2016 07/21/2016 Inactive Generic For:AMARYL 2MG 03/31/2016 12:38:28 PM losartan 100 mg tablet RxNorm: 320523 1 Tablet(s) PO daily 09/19/2016 Inactive simvastatin 20 mg tablet RxNorm: 981511 1 Tablet(s) PO daily 09/18/2016 Inactive glimepiride 2 mg tablet RxNorm: 780842 1 Tablet(s) PO BID 11/2303/22/2016 Inactive meloxicam 15 mg tablet RxNorm: 029175 1 Tablet(s) PO daily 05/21/2016 Inactive bisoprolol 5 mg-hydrochlorothiazide 6.25 mg tablet RxNorm: 921777 1 Tablet(s) PO BID 11/24/2015 03/22/2016 Inactive Generic For:ZIAC 5-6.25MG 03/31/2015 4:06:14 PM03/31/2015 3:58:36 PM metformin 500 mg tablet RxNorm: 657061 1 Tablet(s) BID 201504/04/2016 Inactive Generic For:GLUCOPHAGE 500MG 04/29/2015 3:46:58 PM losartan 50 mg tablet RxNorm: 007300 1 Tablet(s) PO daily 201502/29/2016 Inactive bisoprolol 5 mg-hydrochlorothiazide 6.25 mg tablet RxNorm: 761789 1 Tablet(s) PO BID 07/29/2015 11/23/2015 Inactive Generic For:ZIAC 5-6.25MG 03/31/2015 4:06:14 PM03/31/2015 3:58:36 PM bisoprolol 5 mg-hydrochlorothiazide 6.25 mg tablet RxNorm: 242128 Tablet(s) 1 TABLET(S) BY MOUTH DAILY 07/21/20152015 Inactive Generic For:ZIAC 5-6.25MG 03/31/2015 4:06:14 PM03/31/2015 3:58:36 PM meloxicam 15 mg tablet RxNorm: 758750 1 Tablet(s) PO daily 11/17/2015 Inactive glimepiride 2 mg tablet RxNorm: 458034 1 Tablet(s) PO BID 07/2011/17/2015 Inactive metformin 500 mg tablet RxNorm: 599608 Tablet(s) TAKE 1 TABLET BY MOUTH IN THE MORNING AND 1/2 TABLET IN THE EVENING 06/16/2015 11/06/2015 Inactive Generic For: GLUCOPHAGE 500MG 04/29/2015 3:46:58 PM metformin 500 mg tablet RxNorm: 287936 Tablet(s) TAKE 1 TABLET BY MOUTH IN THE MORNING AND 1/2 TABLET IN THE EVENING 05/19/2015 06/15/2015 Inactive Generic For: GLUCOPHAGE 500MG 04/29/2015 3:46:58 PM metformin 500 mg tablet RxNorm: 642501 TAKE 1/2 (ONE- HALF) TABLET BY MOUTH DAILY BY MOUTH TWICE DAILY 04/29/20152015 Inactive Generic For:GLUCOPHAGE 500MG 04/29/2015 3:46:58 PM meloxicam 15 mg tablet RxNorm: 528619 1 Tablet(s) PO daily 07/20/2015 Inactive simvastatin 20 mg tablet RxNorm: 384551 1 Tablet(s) PO daily 12/23/2015 Inactive bisoprolol 5 mg-hydrochlorothiazide 6.25 mg tablet RxNorm: 025282 1 TABLET(S) BY MOUTH DAILY 03/31/2015 07/20/2015 Inactive Generic For:ZIAC 5-6.25MG 03/31/2015 4: 06:14 PM03/31/2015 3:58:36 PM glimepiride 2 mg tablet RxNorm: 283847 1 Tablet(s) PO BID 02/0506/04/2015 Inactive increase to BID metformin 500 mg tablet RxNorm: 043133 1/2 Tablet(s) PO BID 04/20/2015 Inactive bisoprolol 5 mg-hydrochlorothiazide 6.25 mg tablet RxNorm: 553357 1 Tablet(s) PO daily 12/05/2014 12/04/2014 Inactive bisoprolol 5 mg-hydrochlorothiazide 6.25 mg tablet RxNorm: 914059 1 Tablet(s) PO daily 12/05/2014 03/30/2015 Inactive meloxicam 15 mg tablet RxNorm: 915416 1 Tablet(s) PO daily 04/201404/01/2015 Inactive Truetest Test Strips RxNorm: Miscellaneous daily 11/20/2014 11/19/2014 Inactive Truetest Test Strips RxNorm: Miscellaneous daily 11/20/2014 11/14/2015 Inactive tamsulosin 0.4 mg capsule RxNorm: 248803 1 Capsule(s) PO daily No Start Date Active simvastatin 20 mg tablet RxNorm: 800924 1 Tablet(s) PO daily No Start Date 04/01/2015 Inactive meloxicam 15 mg tablet RxNorm: 918979 1 Tablet(s) PO daily No Start Date 12/02/2014 Inactive finasteride 5 mg tablet RxNorm: 829409 1 Tablet(s) PO daily No Start Date 06/27/2018 Inactive metformin 500 mg tablet RxNorm: 403274 1/2 Tablet(s) PO BID No Start Date 01/20/2015 Inactive glimepiride 2 mg tablet RxNorm: 443365 1 Tablet(s) PO daily No Start Date 02/04/2015 Inactive Ziac 5 mg-6.25 mg tablet RxNorm: 896571 1 Tablet(s) PO daily No Start Date 04/02/2015 Inactive Medication Administered Medication Codes Instructions Start Date Status Kenalog 40 mg/mL suspension for injection RxNorm: 6086402 Milliliter 07/25/2018 Active Immunizations No Immunization data Assessments Condition Codes Effective Dates Essential (primary) hypertension ICD-10: I10 ICD-9: 401.1 07/25/2018 Cough ICD-10: R05 ICD-9: 786.2 07/25/2018 Other allergic rhinitis ICD-10: J30.89 ICD-9: 477.8 07/25/2018 Type 2 diabetes mellitus with hyperglycemia ICD-10: E11.65 ICD-9: 250.00 06/28/2018 Encounter for general adult medical examination with abnormal findings ICD-10: Z00.01 ICD-9: V70.0 03/20/2018 Chronic kidney disease, stage 3 (moderate) ICD-10: N18.3 ICD-9: 585.3 03/07/2018 Actinic keratosis ICD-10: L57.0 ICD-9: 702.0 03/07/2018 Type 2 diabetes mellitus without complications [...] Reason For Visit Effective Dates Notes hypertension 07/25/2018 hypertension 06/28/2018 Annual Medicare Wellness Exam 03/20/2018 hypertension 03/07/2018 [...] Metabolic Ord15 CALCIUM 9.5 mg/dL 03/03/2018 %Hba1C Lbf795 % HbA1c 82612-4 6.7 % 01/02/2018 %Hba1C Ksv406 Gluc Ave 146 mg/dL 01/02/2018 Cbc With [...] 32.7 pg 01/02/2018 Cbc With Differential Ord2 [place]% 9.2 % 01/02/2018 Cbc With Differential Ord2 [...] 1.45 K/ul 01/02/2018 Cbc With Differential Ord2 [place] ABS# 0.7 K/ul 01/02/2018 Cbc With Differential Ord2 Eos ABS# 0.1 K/ul 01/02/2018 Cbc With Differential Ord2 Baso ABS# 0.0 K/ul 01/02/2018 Comp Metabolic Lwd150 NA 138 mEq/L 01/02/2018 Comp Metabolic Qec290 K 4.5 mEq/L 01/02/2018 Comp Metabolic Ksa110 CL 103 mEq/L 01/02/2018 Comp Metabolic Phv991 CO2 28.0 mEq/L 01/02/2018 Comp Metabolic Kmn474 ANION GAP 12 01/02/2018 Comp Metabolic Ihb511 GLUCOSE 186 mg/dL 01/02/2018 Comp Metabolic Xht515 Creat 1.9 mg/dL 01/02/2018 Comp Metabolic Jpi713 eGFR 37 ml/min/1.73m2 01/02/2018 Comp Metabolic Jzn375 BUN 23 mg/dL 01/02/2018 Comp Metabolic Det591 B/C Ratio 12.2 Ratio 01/02/2018 Comp Metabolic Lku304 CALCIUM 9.4 mg/dL 01/02/2018 Comp Metabolic Cjb767 ALK PHOS 46 U/L 01/02/2018 Comp Metabolic Hbo956 AST(SGOT) 16 U/L 01/02/2018 Comp Metabolic Dli488 ALT(SGPT) 19 U/L 01/02/2018 Comp Metabolic Gwo545 BILI T 0.6 mg/dL 01/02/2018 Comp Metabolic Uuj331 ALBUMIN 3.8 g/dL 01/02/2018 Comp Metabolic Wrx333 TPRO 6.1 g/dL 01/02/2018 Comp Metabolic Vvv083 GLOB 2.3 g/dL 01/02/2018 Comp Metabolic Lmu727 A/G Ratio 1.6 Ratio 01/02/2018 Comp Metabolic Egx475 Osmo 284 mOsmo 01/02/2018 %Hba1C Ywo743 % HbA1c 36530-9 6.5 % 08/31/2017 %Hba1C Qor043 Gluc Ave 140 mg/dL 08/31/2017 Lipid Ord30 [...] 33.0 pg 08/31/2017 Cbc With Differential Ord2 [place]% 11.7 % 08/31/2017 Cbc With Differential Ord2 [...] 1.77 K/ul 08/31/2017 Cbc With Differential Ord2 [place] ABS# 0.9 K/ul 08/31/2017 Cbc With Differential Ord2 Eos ABS# 0.1 K/ul 08/31/2017 Cbc With Differential Ord2 Baso ABS# 0.0 K/ul 08/31/2017 Comp Metabolic Wsq620 NA 139 mEq/L 08/31/2017 Comp Metabolic Mrl018 K 4.7 mEq/L 08/31/2017 Comp Metabolic Gdo575 CL 107 mEq/L 08/31/2017 Comp Metabolic Nfp937 CO2 24.0 mEq/L 08/31/2017 Comp Metabolic Dle583 ANION GAP 13 08/31/2017 Comp Metabolic Sby646 GLUCOSE 158 mg/dL 08/31/2017 Comp Metabolic Alh543 Creat 1.7 mg/dL 08/31/2017 Comp Metabolic Obt748 eGFR 43 ml/min/1.73m2 08/31/2017 Comp Metabolic Prw974 BUN 26 mg/dL 08/31/2017 Comp Metabolic Rqd914 B/C Ratio 15.5 Ratio 08/31/2017 Comp Metabolic Wmf418 CALCIUM 9.5 mg/dL 08/31/2017 Comp Metabolic Hjd385 ALK PHOS 47 U/L 08/31/2017 Comp Metabolic Hgp336 AST(SGOT) 16 U/L 08/31/2017 Comp Metabolic Smb315 ALT(SGPT) 17 U/L 08/31/2017 Comp Metabolic Zca136 BILI T 0.8 mg/dL 08/31/2017 Comp Metabolic Rpw476 ALBUMIN 4.0 g/dL 08/31/2017 Comp Metabolic Kqc253 TPRO 6.4 g/dL 08/31/2017 Comp Metabolic Kmw004 GLOB 2.5 g/dL 08/31/2017 Comp Metabolic Nol191 A/G Ratio 1.6 Ratio 08/31/2017 Comp Metabolic Gup612 Osmo 286 mOsmo 08/31/2017 Tsh Ord6 hTSH [...] 32.5 pg 04/27/2017 Cbc With Differential Ord2 [place]% 10.5 % 04/27/2017 Cbc With Differential Ord2 [...] 1.42 K/ul 04/27/2017 Cbc With Differential Ord2 [place] ABS# 0.7 K/ul 04/27/2017 Cbc With Differential Ord2 Eos ABS# 0.1 K/ul 04/27/2017 Cbc With Differential Ord2 Baso ABS# 0.0 K/ul 04/27/2017 %Hba1C Zsa415 % HbA1c 84396-7 6.5 % 04/27/2017 %Hba1C Gfw783 Gluc Ave 140 mg/dL 04/27/2017 Lipid Ord30 CHOL 134 mg/dL 04/27/2017 Lipid Ord30 HDL 44.0 mg/dl 04/27/2017 Lipid Ord30 TRIG 89 mg/dL 04/27/2017 Lipid Ord30 LDL 72 mg/dL 04/27/2017 Lipid Ord30 C/HDL 3.0 Ratio 04/27/2017 Comp Metabolic Mzl541 NA 140 mEq/L 04/27/2017 Comp Metabolic Vuu561 K 4.3 mEq/L 04/27/2017 Comp Metabolic Wtb654 CL 105 mEq/L 04/27/2017 Comp Metabolic Fjs715 CO2 26.0 mEq/L 04/27/2017 Comp Metabolic Fbq965 ANION GAP 13 04/27/2017 Comp Metabolic Pnk214 GLUCOSE 117 mg/dL 04/27/2017 Comp Metabolic Ikt301 Creat 1.6 mg/dL 04/27/2017 Comp Metabolic Tds812 eGFR 45 ml/min/1.73m2 04/27/2017 Comp Metabolic Gsq932 BUN 27 mg/dL 04/27/2017 Comp Metabolic Ztq164 B/C Ratio 16.9 Ratio 04/27/2017 Comp Metabolic Wre875 CALCIUM 9.5 mg/dL 04/27/2017 Comp Metabolic Pgd226 ALK PHOS 55 U/L 04/27/2017 Comp Metabolic Aid517 AST(SGOT) 20 U/L 04/27/2017 Comp Metabolic Eoj421 ALT(SGPT) 18 U/L 04/27/2017 Comp Metabolic Gnl990 BILI T 0.4 mg/dL 04/27/2017 Comp Metabolic Liu248 ALBUMIN 4.0 g/dL 04/27/2017 Comp Metabolic Tfl549 TPRO 6.5 g/dL 04/27/2017 Comp Metabolic Nlh620 GLOB 2.5 g/dL 04/27/2017 Comp Metabolic Abw614 A/G Ratio 1.6 Ratio 04/27/2017 Comp Metabolic Ols847 Osmo 286 mOsmo 04/27/2017 Total Psa Ord10 PSA 7.87 ng/mL 04/27/2017 Comp Metabolic Bef194 NA 136 mEq/L 12/29/2016 Comp Metabolic Kod922 K 4.5 mEq/L 12/29/2016 Comp Metabolic Ica915 CL 103 mEq/L 12/29/2016 Comp Metabolic Fwu784 CO2 24.0 mEq/L 12/29/2016 Comp Metabolic Pho493 ANION GAP 14 12/29/2016 Comp Metabolic Jvl130 GLUCOSE 164 mg/dL 12/29/2016 Comp Metabolic Ojt542 Creat 1.7 mg/dL 12/29/2016 Comp Metabolic Rzx958 eGFR 43 ml/min/1.73m2 12/29/2016 Comp Metabolic Bri791 BUN 22 mg/dL 12/29/2016 Comp Metabolic Hls376 B/C Ratio 13.3 Ratio 12/29/2016 Comp Metabolic Vhk987 CALCIUM 9.5 mg/dL 12/29/2016 Comp Metabolic Ocf038 ALK PHOS 58 U/L 12/29/2016 Comp Metabolic Ckj140 AST(SGOT) 16 U/L 12/29/2016 Comp Metabolic Qmr299 ALT(SGPT) 16 U/L 12/29/2016 Comp Metabolic Exb995 BILI T 0.9 mg/dL 12/29/2016 Comp Metabolic Ilb229 ALBUMIN 3.9 g/dL 12/29/2016 Comp Metabolic Ipb114 TPRO 6.4 g/dL 12/29/2016 Comp Metabolic Gde487 GLOB 2.5 g/dL 12/29/2016 Comp Metabolic Sxl395 A/G Ratio 1.5 Ratio 12/29/2016 Comp Metabolic Xya589 Osmo 279 mOsmo 12/29/2016 Total Psa Ord10 PSA 8.44 ng/mL 11/09/2016 %Hba1C Sdj318 % HbA1c 48177-6 6.4 % 11/09/2016 %Hba1C Qbv676 Gluc Ave 137 mg/dL 11/09/2016 Cbc With [...] 33.8 pg 11/09/2016 Cbc With Differential Ord2 [place]% 11.8 % 11/09/2016 Cbc With Differential Ord2 [...] 2.29 K/ul 11/09/2016 Cbc With Differential Ord2 [place] ABS# 1.1 K/ul 11/09/2016 Cbc With Differential Ord2 Eos ABS# 0.3 K/ul 11/09/2016 Cbc With Differential Ord2 Baso ABS# 0.0 K/ul 11/09/2016 Lipid Ord30 CHOL 152 mg/dL 11/09/2016 Lipid Ord30 HDL 46.0 mg/dl 11/09/2016 Lipid Ord30 TRIG 144 mg/dL 11/09/2016 Lipid Ord30 LDL 77 mg/dL 11/09/2016 Lipid Ord30 C/HDL 3.3 Ratio 11/09/2016 Comp Metabolic Zbm252 NA 140 mEq/L 11/09/2016 Comp Metabolic Vmv548 K 4.9 mEq/L 11/09/2016 Comp Metabolic Ywy968 CL 106 mEq/L 11/09/2016 Comp Metabolic Vtt700 CO2 25.0 mEq/L 11/09/2016 Comp Metabolic Mqv274 ANION GAP 14 11/09/2016 Comp Metabolic Qkr246 GLUCOSE 127 mg/dL 11/09/2016 Comp Metabolic Kxd107 Creat 1.7 mg/dL 11/09/2016 Comp Metabolic Sre414 eGFR 43 ml/min/1.73m2 11/09/2016 Comp Metabolic Aqp037 BUN 21 mg/dL 11/09/2016 Comp Metabolic Emb214 B/C Ratio 12.7 Ratio 11/09/2016 Comp Metabolic Pez802 CALCIUM 9.5 mg/dL 11/09/2016 Comp Metabolic Vke266 ALK PHOS 45 U/L 11/09/2016 Comp Metabolic Iqw660 AST(SGOT) 18 U/L 11/09/2016 Comp Metabolic Bui216 ALT(SGPT) 16 U/L 11/09/2016 Comp Metabolic Imb282 BILI T 0.6 mg/dL 11/09/2016 Comp Metabolic Gjk219 ALBUMIN 3.9 g/dL 11/09/2016 Comp Metabolic Nsz077 TPRO 6.4 g/dL 11/09/2016 Comp Metabolic Mun893 GLOB 2.5 g/dL 11/09/2016 Comp Metabolic Pwy206 A/G Ratio 1.5 Ratio 11/09/2016 Comp Metabolic Aur661 Osmo 284 mOsmo 11/09/2016 Tsh Ord6 hTSH [...] 15.1 % 03/10/2016 Cbc With Differential Ord2 MCH 32.9 pg 03/10/2016 Cbc With Differential Ord2 [place]% 10.6 % 03/10/2016 Cbc With Differential Ord2 MCHC [...] 1.48 K/ul 03/10/2016 Cbc With Differential Ord2 [place] ABS# 1.0 K/ul 03/10/2016 Cbc With Differential Ord2 Eos ABS# 0.1 K/ul 03/10/2016 Cbc With Differential Ord2 Baso ABS# 0.0 K/ul 03/10/2016 %Hba1C Mty963 % HbA1c 81228-8 6.6 % 03/10/2016 %Hba1C Ssu398 Gluc Ave 143 mg/dL 03/10/2016 Comp Metabolic Bsd175 NA 138 mEq/L 03/10/2016 Comp Metabolic Znb224 K 4.9 mEq/L 03/10/2016 Comp Metabolic Qfl157 CL 102 mEq/L 03/10/2016 Comp Metabolic Vih982 CO2 28.0 mEq/L 03/10/2016 Comp Metabolic Age248 ANION GAP 13 03/10/2016 Comp Metabolic Pyy918 GLUCOSE 135 mg/dL 03/10/2016 Comp Metabolic Pij105 Creat 1.5 mg/dL 03/10/2016 Comp Metabolic Ucq722 eGFR 51 ml/min/1.73m2 03/10/2016 Comp Metabolic Rcy235 BUN 28 mg/dL 03/10/2016 Comp Metabolic Pur611 B/C Ratio 19.3 Ratio 03/10/2016 Comp Metabolic Lip934 CALCIUM 9.8 mg/dL 03/10/2016 Comp Metabolic Zdj288 ALK PHOS 52 U/L 03/10/2016 Comp Metabolic Uny165 AST(SGOT) 19 U/L 03/10/2016 Comp Metabolic Xqe867 ALT(SGPT) 22 U/L 03/10/2016 Comp Metabolic Ahb674 BILI T 0.5 mg/dL 03/10/2016 Comp Metabolic Tdg264 ALBUMIN 4.4 g/dL 03/10/2016 Comp Metabolic Agy076 TPRO 6.8 g/dL 03/10/2016 Comp Metabolic Ucc913 GLOB 2.4 g/dL 03/10/2016 Comp Metabolic Isr593 A/G Ratio 1.8 Ratio 03/10/2016 Comp Metabolic Zej241 Osmo 283 mOsmo 03/10/2016 Comp Metabolic Hzi349 NA 136 mEq/L 11/06/2015 Comp Metabolic Wrx006 K 4.0 mEq/L 11/06/2015 Comp Metabolic Jue593 CL 102 mEq/L 11/06/2015 Comp Metabolic Idu460 CO2 27.0 mEq/L 11/06/2015 Comp Metabolic Qkp342 ANION GAP 11 11/06/2015 Comp Metabolic Qjs973 GLUCOSE 144 mg/dL 11/06/2015 Comp Metabolic Pce251 Creat 1.2 mg/dL 11/06/2015 Comp Metabolic Cec466 eGFR 64 ml/min/1.73m2 11/06/2015 Comp Metabolic Yjn691 BUN 23 mg/dL 11/06/2015 Comp Metabolic Kss244 B/C Ratio 19.3 Ratio 11/06/2015 Comp Metabolic Tdh727 CALCIUM 10.2 mg/dL 11/06/2015 Comp Metabolic Hrv596 ALK PHOS 52 U/L 11/06/2015 Comp Metabolic Kxz242 AST(SGOT) 16 U/L 11/06/2015 Comp Metabolic Xit610 ALT(SGPT) 19 U/L 11/06/2015 Comp Metabolic Hvx760 BILI T 0.7 mg/dL 11/06/2015 Comp Metabolic Yqe874 ALBUMIN 4.3 g/dL 11/06/2015 Comp Metabolic Ood126 TPRO 6.8 g/dL 11/06/2015 Comp Metabolic Zmm521 GLOB 2.5 g/dL 11/06/2015 Comp Metabolic Fic740 A/G Ratio 1.7 Ratio 11/06/2015 Comp Metabolic Vvg805 Osmo 278 mOsmo 11/06/2015 Lipid Ord30 CHOL 152 mg/dL 11/06/2015 Lipid Ord30 HDL 48.0 mg/dl 11/06/2015 Lipid Ord30 TRIG 79 mg/dL 11/06/2015 Lipid Ord30 LDL 88 mg/dL 11/06/2015 Lipid Ord30 C/HDL 3.2 Ratio 11/06/2015 %Hba1C Vjh530 % HbA1c 36848-6 7.3 % 11/06/2015 %Hba1C Acu224 Gluc Ave 163 mg/dL 11/06/2015 Cbc With [...] 32.8 pg 06/05/2015 Cbc With Differential Ord2 [place]% 9.8 % 06/05/2015 Cbc With Differential Ord2 [...] 1.97 K/ul 06/05/2015 Cbc With Differential Ord2 [place] ABS# 0.9 K/ul 06/05/2015 Cbc With Differential Ord2 Eos ABS# 0.1 K/ul 06/05/2015 Cbc With Differential Ord2 Baso ABS# 0.0 K/ul 06/05/2015 Cbc With Differential Ord2 New Analyzer Notice Please note new ref ranges starting 04-16-2015 due to implemntation of new five part differential hematolgy analyzer. 06/05/2015 %Hba1C Myv925 % HbA1c 47280-3 7.1 % 05/08/2015 %Hba1C Cig494 Gluc Ave 157 mg/dL 05/08/2015 Microalbumin Aus306 MicroAlb 1.2 mg/dL 05/01/2015 Cbc With Differential [...] 33.1 pg 04/30/2015 Cbc With Differential Ord2 [place]% 11.2 % 04/30/2015 Cbc With Differential Ord2 MCHC 34.3 pg 04/30/2015 Cbc With Differential Ord2 Eos% 2.0 % 04/30/2015 Cbc With Differential Ord2 PLT 374 K/ul 04/30/2015 Cbc With Differential Ord2 Baso% 0.2 % 04/30/2015 Cbc With Differential Ord2 RDW 13.0 % 04/30/2015 Cbc With Differential Ord2 Neut ABS# 4.89 K/ul 04/30/2015 Cbc With Differential Ord2 Lymph ABS# 2.41 K/ul 04/30/2015 Cbc With Differential Ord2 [place] ABS# 0.9 K/ul 04/30/2015 Cbc With Differential [...] hTSH II 1.35 uIU/mL 04/30/2015 Comp Metabolic Bsh430 NA 136 mEq/L 04/30/2015 Comp Metabolic Kxr219 K 4.5 mEq/L 04/30/2015 Comp Metabolic Atb114 CL 100 mEq/L 04/30/2015 Comp Metabolic Zjp756 CO2 28.0 mEq/L 04/30/2015 Comp Metabolic Siq314 ANION GAP 13 04/30/2015 Comp Metabolic Xbb172 GLUCOSE 162 mg/dL 04/30/2015 Comp Metabolic Ifo467 Creat 1.2 mg/dL 04/30/2015 Comp Metabolic Qro738 eGFR 62 ml/min/1.73m2 04/30/2015 Comp Metabolic Fgy756 BUN 21 mg/dL 04/30/2015 Comp Metabolic Bgn230 B/C Ratio 17.4 Ratio 04/30/2015 Comp Metabolic Hgs929 CALCIUM 9.9 mg/dL 04/30/2015 Comp Metabolic Ijk195 ALK PHOS 51 U/L 04/30/2015 Comp Metabolic Vjg406 AST(SGOT) 18 U/L 04/30/2015 Comp Metabolic Uyv564 ALT(SGPT) 23 U/L 04/30/2015 Comp Metabolic Xek939 BILI T 0.5 mg/dL 04/30/2015 Comp Metabolic Nbj208 ALBUMIN 4.2 g/dL 04/30/2015 Comp Metabolic Vet265 TPRO 6.9 g/dL 04/30/2015 Comp Metabolic Qrg380 GLOB 2.7 g/dL 04/30/2015 Comp Metabolic Fra455 A/G Ratio 1.6 Ratio 04/30/2015 Comp Metabolic Pdq512 Osmo 278 mOsmo 04/30/2015 Metabolic Ord15 NA [...] Differential Ord2 RDW 13.6 % 01/28/2015 %Hba1C Lzj249 % HbA1c 53841-1 7.3 % 01/28/2015 %Hba1C Kgi806 Gluc Ave 163 mg/dL 01/28/2015 %Hba1C Zbv037 % HbA1c 59696-3 7.8 % 10/24/2014 %Hba1C Vem007 Gluc Ave 177 mg/dL 10/24/2014 Cbc With [...] Ord2 RDW 13.7 % 10/23/2014 Comp Metabolic Ffa589 NA 135 mEq/L 10/23/2014 Comp Metabolic Kqj225 K 4.4 mEq/L 10/23/2014 Comp Metabolic Gjt804 CL 99 mEq/L 10/23/2014 Comp Metabolic Zhk630 CO2 31.0 mEq/L 10/23/2014 Comp Metabolic Qsj670 ANION GAP 9 10/23/2014 Comp Metabolic Hnf294 GLUCOSE 203 mg/dL 10/23/2014 Comp Metabolic Bdu631 Creat 1.1 mg/dL 10/23/2014 Comp Metabolic Sck914 eGFR 72 ml/min/1.73m2 10/23/2014 Comp Metabolic Nam941 BUN 19 mg/dL 10/23/2014 Comp Metabolic Tqt654 B/C Ratio 17.8 Ratio 10/23/2014 Comp Metabolic Dly433 CALCIUM 10.2 mg/dL 10/23/2014 Comp Metabolic Iii252 ALK PHOS 55 U/L 10/23/2014 Comp Metabolic Gnt970 AST(SGOT) 22 U/L 10/23/2014 Comp Metabolic Kxd066 ALT(SGPT) 34 U/L 10/23/2014 Comp Metabolic Avh833 BILI T 0.8 mg/dL 10/23/2014 Comp Metabolic Pvj241 ALBUMIN 4.3 g/dL 10/23/2014 Comp Metabolic Nwu944 TPRO 6.7 g/dL 10/23/2014 Comp Metabolic Gut430 GLOB 2.4 g/dL 10/23/2014 Comp Metabolic Rqk984 A/G Ratio 1.8 Ratio 10/23/2014 Comp Metabolic Uwp570 Osmo 278 mOsmo 10/23/2014 Review of Systems System Result Effective Dates Constitutional No recent illness 2018 Constitutional No chills 07/25/2018 Constitutional No fatigue 07/25/2018 Constitutional No fever 07/25/2018 Constitutional No insomnia 07/25/2018 Constitutional No malaise 07/25/2018 Ears/Nose/Throat/Neck No dental pain Ears/Nose/Throat/Neck No dizziness 2018 Ears/Nose/Throat/Neck No dysphagia 2018 Ears/Nose/Throat/Neck No headache 2018 Ears/Nose/Throat/Neck No hearing loss Ears/Nose/Throat/Neck No nasal allergies 07/25/2018 Ears/Nose/Throat/Neck No sore throat Ears/Nose/Throat/Neck No postnasal drip 07/25/2018 Ears/Nose/Throat/Neck No sinus congestion 07/25/2018 Cardiovascular No chest pain/pressure Cardiovascular No dyspnea 07/25/2018 Cardiovascular No edema 07/25/2018 Cardiovascular No exercise intolerance Cardiovascular No fatigue 07/25/2018 Cardiovascular No near-syncope/dizziness 07/25/2018 Respiratory No chest tightness 2018 Respiratory No cough 07/25/2018 Respiratory No dyspnea 07/25/2018 Respiratory No pedal edema 07/25/2018 Gastrointestinal No abdominal pain 2018 Gastrointestinal No constipation 2018 Gastrointestinal No diarrhea 07/25/2018 Gastrointestinal No gastroesophageal reflux 07/25/2018 Gastrointestinal No nausea 07/25/2018 Gastrointestinal No vomiting 07/25/2018 Genitourinary/Nephrology chronic renal failure 07/25/2018 Musculoskeletal No stiffness 07/25/2018 Musculoskeletal No swelling 07/25/2018 Musculoskeletal No muscle weakness 2018 Musculoskeletal No myalgias 07/25/2018 Dermatologic No rash 07/25/2018 Dermatologic No scar 07/25/2018 Psychiatric No anxiety 07/25/2018 Psychiatric No depression 07/25/2018 Endocrine diabetes mellitus type 2 2018 Constitutional No recent illness 2018 Constitutional No chills 06/28/2018 Constitutional No fatigue 06/28/2018 Constitutional No fever 06/28/2018 Constitutional No insomnia 06/28/2018 Constitutional No malaise 06/28/2018 Ears/Nose/Throat/Neck No dental pain Ears/Nose/Throat/Neck No dizziness 2018 Ears/Nose/Throat/Neck No dysphagia 2018 Ears/Nose/Throat/Neck No headache 2018 Ears/Nose/Throat/Neck No hearing loss Ears/Nose/Throat/Neck No nasal allergies 06/28/2018 Ears/Nose/Throat/Neck No sore throat Ears/Nose/Throat/Neck No postnasal drip 06/28/2018 Ears/Nose/Throat/Neck No sinus congestion 06/28/2018 Cardiovascular No chest pain/pressure Cardiovascular No dyspnea 06/28/2018 Cardiovascular No edema 06/28/2018 Cardiovascular No exercise intolerance Cardiovascular No fatigue 06/28/2018 Cardiovascular No near-syncope/dizziness 06/28/2018 Respiratory No chest tightness 2018 Respiratory No cough 06/28/2018 Respiratory No dyspnea 06/28/2018 Respiratory No pedal edema 06/28/2018 Gastrointestinal No abdominal pain 2018 Gastrointestinal No constipation 2018 Gastrointestinal No diarrhea 06/28/2018 Gastrointestinal No gastroesophageal reflux 06/28/2018 Gastrointestinal No nausea 06/28/2018 Gastrointestinal No vomiting 06/28/2018 Genitourinary/Nephrology chronic renal failure 06/28/2018 Musculoskeletal No stiffness 06/28/2018 Musculoskeletal No swelling 06/28/2018 Musculoskeletal No muscle weakness 2018 Musculoskeletal No myalgias 06/28/2018 Dermatologic No rash 06/28/2018 Dermatologic No scar 06/28/2018 Psychiatric No anxiety 06/28/2018 Psychiatric No depression 06/28/2018 Endocrine diabetes mellitus type 2 2018 Constitutional No recent illness 2017 Constitutional No [...] 1994 Constitutional general appearance Development: well developed 07/25/2018 None Full Exam - General 1994 Constitutional general appearance Development: appears stated age 0407/25/2018 None Full Exam - General 1994 Constitutional general appearance Hygiene/Attention to Grooming: good hygiene 07/25/2018 None Full Exam - General 1994 Eyes pupils and irises Overall: pupils equal, round, reactive to light and accomodation 07/25/2018 None Full Exam - General 1994 Ears/Nose/Throat oral cavity/pharynx/larynx Overall: oral mucosa clear 07/25/2018 None Full Exam - General 1994 Ears/Nose/Throat oral cavity/pharynx/larynx Overall: oropharyngeal mucosa clear 07/25/2018 None Full Exam - General 1994 Ears/Nose/Throat oral cavity/pharynx/larynx Overall: hypopharynx benign 07/25/2018 None Full Exam - General 1994 Ears/Nose/Throat oral cavity/pharynx/larynx Overall: no masses 07/25/2018 None Full Exam - General 1994 Respiratory auscultation Overall: breath sounds clear bilaterally 07/25/2018 None Full Exam - General 1994 Respiratory respiratory effort/rhythm Overall: no retractions 07/25/2018 None Full Exam - General 1994 Respiratory respiratory effort/rhythm Overall: normal rate 07/25/2018 None Full Exam - General 1994 Cardiovascular extremities Overall: no clubbing 07/25/2018 None Full Exam - General 1994 Cardiovascular auscultation of heart Overall: regular rate 07/25/2018 None Full Exam - General 1994 Cardiovascular auscultation of heart Overall: normal heart sounds 07/25/2018 None Full Exam - General 1994 Musculoskeletal spine, ribs and pelvis Overall: good posture 07/25/2018 None Full Exam - General 1994 Musculoskeletal head and neck Overall: cervical spine benign 07/25/2018 None Full Exam - General 1994 Psychiatric orientation/consciousness Overall: oriented to person, place and time 07/25/2018 None Full Exam - General 1994 Psychiatric mood and affect Overall: normal mood and affect 07/25/2018 None Full Exam - General 1994 Constitutional general appearance Development: well developed 06/28/2018 None Full Exam - General 1994 Constitutional general appearance Development: appears stated age 0306/28/2018 None Full Exam - General 1994 Constitutional general appearance Hygiene/Attention to Grooming: good hygiene 06/28/2018 None Full Exam - General 1994 Eyes pupils and irises Overall: pupils equal, round, reactive to light and accomodation 06/28/2018 None Full Exam - General 1994 Ears/Nose/Throat oral cavity/pharynx/larynx Overall: oral mucosa clear 06/28/2018 None Full Exam - General 1994 Ears/Nose/Throat oral cavity/pharynx/larynx Overall: oropharyngeal mucosa clear 06/28/2018 None Full Exam - General 1994 Ears/Nose/Throat oral cavity/pharynx/larynx Overall: hypopharynx benign 06/28/2018 None Full Exam - General 1994 Ears/Nose/Throat oral cavity/pharynx/larynx Overall: no masses 06/28/2018 None Full Exam - General 1994 Respiratory auscultation Overall: breath sounds clear bilaterally 06/28/2018 None Full Exam - General 1994 Respiratory respiratory effort/rhythm Overall: no retractions 06/28/2018 None Full Exam - General 1994 Respiratory respiratory effort/rhythm Overall: normal rate 06/28/2018 None Full Exam - General 1994 Cardiovascular extremities Overall: no clubbing 06/28/2018 None Full Exam - General 1994 Cardiovascular auscultation of heart Overall: regular rate 06/28/2018 None Full Exam - General 1994 Cardiovascular auscultation of heart Overall: normal heart sounds 06/28/2018 None Full Exam - General 1994 Abdomen abdominal exam Overall: no tenderness 06/28/2018 None Full Exam - General 1994 Abdomen abdominal exam Overall: normal bowel sounds 06/28/2018 None Full Exam - General 1994 Musculoskeletal spine, ribs and pelvis Overall: good posture 06/28/2018 None Full Exam - General 1994 Musculoskeletal head and neck Overall: cervical spine benign 06/28/2018 None Full Exam - General 1994 Integument inspection of skin Location: ear 06/28/2018 bilateral helix - actinic keratosis treated with cryotherapy x 3 on right ear 1 site, left ear 2 sites Full Exam - General 1994 Integument inspection of skin Location: scalp 06/28/2018 posterior scalp scabbed keratotic lesion - treated with cryotherapy x 3 Full Exam - General 1994 Integument inspection of skin Location: face 06/28/2018 left mormonism nodular lesion treated with cryotherapy x 3 Full Exam - General 1994 Psychiatric orientation/consciousness Overall: oriented to person, place and time 06/28/2018 None Full Exam - General 1994 Psychiatric mood and affect Overall: normal mood and affect 06/28/2018 None Full Exam - General 1994 Constitutional [...] inspection of skin Location: face 03/07/2018 left mormonism nodular lesion treated with cryotherapy x 3 [...] bilaterally 05/05/2017 None Full Exam - General 1995 Respiratory respiratory effort/rhythm Overall: no retractions 05/05/2017 [...] - actinic keratosis Procedures Procedure Codes Date THER/PROPH/DIAG INJ SC/IM CPT-4: 78655 07/25/2018 TRIAMCINOLONE ACET INJ NOS CPT-4: J3301 07/25/2018 PPPS, SUBSEQ VISIT CPT -4: G0439 03/20/2018 DESTRUCT PREMALG LESION CPT-4: 91617 03/07/2018 DESTRUCT PREMALG LES 2-14 CPT-4: 69598 03/07/2018 PPPS, SUBSEQ VISIT CPT -4: G0439 03/15/2017 PPPS, SUBSEQ VISIT CPT -4: G0439 03/12/2016 DESTRUCT PREMALG LESION CPT-4: 45065 10/23/2014 DESTRUCT PREMALG LES 2-14 CPT-4: 65935 10/23/2014 Vital Signs Date Vital 07/25/2018 Blood Pressure 1: 122/64 Code : 8480-6 BMI: 28.8 Code : 78969-1 Heart Rate 1 : 65 bpm Height: 5'5" SpO2: 98% Weight: 173 lbs 06/28/2018 Blood Pressure 1: 158/70 Code : 8480-6 BMI: 30.1 Code : 05019-0 Heart Rate 1 : 62 bpm Height: 5'5" SpO2: 97% Weight: 181 lbs 03/20/2018 Blood Pressure 1: 140/62 Code : 8480-6 BMI: 29.8 Code : 83863-0 Heart Rate 1 : 59 bpm Height: 5'5" SpO2: 96% Weight: 179 lbs 03/07/2018 Blood Pressure 1: 160/80 Code : 8480-6 BMI: 29.8 Code : 60707-8 Heart Rate 1 : 56 bpm Height: 5'5" SpO2: 96% Weight: 179 lbs 01/30/2018 Blood Pressure 1: 144/64 Code : 8480-6 Blood Pressure 2: 150/64 Code: 8480-6 BMI: 29.6 Code: 76489-5 Heart Rate 1: 61 bpm Height: 5'5" SpO2: 98% Weight: 178 lbs 09/07/2017 Blood Pressure 1: 148/68 Code : 8480-6 BMI: 29.6 Code : 73841-0 Heart Rate 1 : 60 bpm Height: 5'5" SpO2: 98% Weight: 178 lbs 05/05/2017 Blood Pressure 1: 122/64 Code : 8480-6 BMI: 28.3 Code : 63082-8 Heart Rate 1 : 56 bpm Height: 5'5" SpO2: 97% Weight: 170 lbs 2017 BMI: 29.1 Code: 34599-9 Height: 5'5" Weight: 175 lbs 03/15/2017 Blood Pressure 1: 136/76 Code : 8480-6 BMI: 29.1 Code : 75227-5 Heart Rate 1 : 82 bpm Height: 5'5" SpO2: 98% Weight: 175 lbs 03/03/2017 BMI: 29.1 Code: 59760-0 Height: 5'5" Weight: 175 lbs 02/02/2017 Blood Pressure 1: 132/60 Code : 8480-6 BMI: 28.6 Code : 13425-0 Heart Rate 1 : 64 bpm Height: 5'5" SpO2: 99% Weight: 172 lbs 01/04/2017 Blood Pressure 1: 138/70 Code : 8480-6 BMI: 29.6 Code : 63272-2 Heart Rate 1 : 59 bpm Height: 5'5" SpO2: 99% Weight: 178 lbs 11/16/2016 Blood Pressure 1: 150/70 Code : 8480-6 BMI: 30.6 Code : 81253-6 Heart Rate 1 : 68 bpm Height: 5'5" SpO2: 94% Weight: 184 lbs 07/19/2016 Blood Pressure 1: 150/70 Code : 8480-6 Blood Pressure 2: 154/70 Code: 8480-6 BMI: 31.0 Code: 18987-9 Heart Rate 1: 61 bpm Height: 5'5" SpO2: 98% Weight: 186 lbs 03/12/2016 Blood Pressure 1: 156/80 Code : 8480-6 BMI: 30.5 Code : 24417-7 Heart Rate 1 : 60 bpm Height: 5'5" SpO2: 98% Waist Measure (cm): 91 cm Weight: 183 lbs 03/10/2016 Blood Pressure 1: 158/78 Code : 8480-6 Blood Pressure 1: 158/78 Code: 8480-6 BMI: 30.5 Code: 48849-5 Heart Rate 1: 61 bpm Height: 5'5" SpO2: 98% Weight: 183 lbs 11/06/2015 Blood Pressure 1: 156/80 Code : 8480-6 Blood Pressure 1: 138/70 Code: 8480-6 BMI: 30.1 Code: 14223-7 Heart Rate 1: 64 bpm Height: 5'5" SpO2: 98% Weight: 181 lbs 09/09/2015 Blood Pressure 1: 126/68 Code : 8480-6 08/26/2015 Blood Pressure 1: 168/74 Code : 8480-6 Blood Pressure 1: 162/76 Code: 8480-6 BMI: 29.8 Code: 68189-1 Heart Rate 1: 61 bpm Height: 5'5" SpO2: 98% Weight: 179 lbs 07/29/2015 Blood Pressure 1: 166/76 Code : 8480-6 BMI: 30.0 Code : 84015-2 Heart Rate 1 : 75 bpm Height: 5'5" SpO2: 99% Weight: 180 lbs 04/29/2015 Blood Pressure 1: 130/70 Code : 8480-6 Blood Pressure 1: 132/76 Code: 8480-6 BMI: 30.8 Code: 91582-2 Heart Rate 1: 64 bpm Height: 5'5" SpO2: 99% Weight: 185 lbs 10/23/2014 Blood Pressure 1: 140/76 Code : 8480-6 BMI: 30.5 Code : 85109-1 Heart Rate 1 : 63 bpm Height: 5'5" SpO2: 98% Weight: 183 lbs Functional Status No Functional Status data History of Present Illness Symptom Name Status Result Effective Date Notes Onset and Resolution ongoing 07/25/2018 None Onset of Symptom during adulthood 07/25/2018 None Quality chronic 06/28 None Quality primary hypertension 06/28/2018 None Onset and Resolution ongoing 06/28/2018 None Onset of Symptom during adulthood 06/28/2018 None Blood Pressure Values patient checking blood pressure at home - did not bring in readings 2018 None Alleviating Factors medication 06/28/2018 None Exacerbating Factors stress 06/28/2018 None Pertinent Findings Denies edema 06/28/2018 None Quality chronic 06/28 None Quality non-insulin dependent 06/28/2018 None Onset of Symptom onset as an adult 06/28/2018 None Test results HgbA1c level 6.8 06/28/2018 None Alleviating Factors medication 06/28/2018 None Exacerbating Factors diet 06/28/2018 None Onset and Resolution gradual in onset 06/28/2018 None Onset of Symptom during adulthood 06/28/2018 None Significant Medications statin 06/28/2018 None Alleviating Factors medication 06/28/2018 None Exacerbating Factors diet 06/28/2018 None Quality Denies chronic 06/28/2018 None Quality Denies stable 06/28/2018 None Test results Denies Pt checking blood glucose readings, did not bring results to clinic 06/28/2018 None Glucose monitoring fasting 06/28/2018 None Pertinent Findings Denies dizziness 06/28/2018 None Pertinent Findings Denies dyspnea 06/28/2018 None Pertinent Findings Denies nausea 06/28/2018 None Exacerbating Factors Denies change in dietary habits 06/28/2018 (increased salt ) Alcohol Use does not drink any alcohol [...] data Encounters Encounter Performer Location Codes Date ([id number]) 84060 EST. PATIENT, LEVEL III Diagnosis: Essential (primary) hypertension[ICD10: I10] Diagnosis: Cough[ICD10: R05] Diagnosis: Other allergic rhinitis[ICD10: J30.89] Virginie Isaac MD, [facility] CPT-4: 04855 07/25/2018 ([id number]) 55546 EST. PATIENT, LEVEL IV Diagnosis: Essential (primary) hypertension[ICD10: I10] Diagnosis: Type 2 diabetes mellitus with hyperglycemia[ICD10: E11.65] Virginie Isaac MD [facility] CPT-4: 28020 06/28/2018 ([id number]) 86110 EST. PATIENT, LEVEL IV Diagnosis: Essential (primary) hypertension[ICD10: I10] Diagnosis: Chronic kidney disease, stage 3 (moderate)[ICD10: N18.3] Diagnosis: Type 2 diabetes mellitus with hyperglycemia[ICD10: E11.65] Virginie Isaac MD [facility] CPT-4: 18273 03/07/2018 ([id number]) 50789 EST. PATIENT, LEVEL IV Diagnosis: Type 2 diabetes mellitus with hyperglycemia[ICD10: E11.65] Diagnosis: Chronic kidney disease, stage 3 (moderate)[ICD10: N18.3] Diagnosis: Essential (primary) hypertension[ICD10: I10] Virginie Isaac MD [facility] CPT-4: 42115 01/30/2018 ([id number]) 74777 EST. PATIENT, LEVEL IV Diagnosis: Essential (primary) hypertension[ICD10: I10] Diagnosis: Type 2 diabetes mellitus without complications[ICD10: E11.9] Diagnosis: Malignant neoplasm of prostate[ICD10: C61] Diagnosis: Chronic kidney disease, stage 3 (moderate)[ICD10: N18.3] Virginie Isaac MD [facility] CPT-4: 79786 09/07/2017 ([id number]) 23580 EST. PATIENT, LEVEL IV Diagnosis: Type 2 diabetes mellitus without complications[ICD10: E11.9] Diagnosis: Essential (primary) hypertension[ICD10: I10] Diagnosis: Changes in skin texture[ICD10: R23.4] Diagnosis: Chronic kidney disease, stage 3 (moderate)[ICD10: N18.3] Virginie Isaac MD [facility] CPT-4: 84051 05/05/2017 ([id number]) Miscellaneous no charge Diagnosis: Abnormal weight loss[ICD10: R63.4] Virginie Isaac MD [facility] CPT-4: 84381 2017 ([id number]) Miscellaneous no charge Diagnosis: Abnormal weight loss[ICD10: R63.4] Virginie Isaac MD [facility] CPT-4: 41628 03/03/2017 ([id number] 13338 EST. PATIENT, LEVEL III Diagnosis: Type 2 diabetes mellitus with hyperglycemia[ICD10: E11.65] Diagnosis: Essential (primary) hypertension[ICD10: I10] Virginie Isaac MD [facility] CPT-4: 29309 02/02/2017 [id number]) 28070 EST. PATIENT, LEVEL IV Diagnosis: Type 2 diabetes mellitus with hyperglycemia[ICD10: E11.65] Diagnosis: Essential (primary) hypertension[ICD10: I10] Diagnosis: Chronic kidney disease, stage 3 (moderate)[ICD10: N18.3] Virginie Isaac MD [facility] CPT-4: 82719 01/04/2017 ([id number]) 14257 EST. PATIENT, LEVEL IV Diagnosis: Type 2 diabetes mellitus with hyperglycemia[ICD10: E11.65] Diagnosis: Essential (primary) hypertension[ICD10: I10] Diagnosis: Chronic kidney disease, stage 3 (moderate)[ICD10: N18.3] Diagnosis: Elevated prostate specific antigen [PSA][ICD10: R97.20] Virginie Isaac MD [facility] CPT-4: 42988 11/16/2016 ([id number]) [id number] EST. PATIENT, LEVEL IV Diagnosis: Essential (primary) hypertension[ICD10: I10] Diagnosis: Type 2 diabetes mellitus with hyperglycemia[ICD10: E11.65] Diagnosis: Mixed hyperlipidemia[ICD10: E78.2] Virginie Isaac MD [facility] CPT-4: 36394 07/19/2016 ([id number]) 39610 EST. PATIENT, LEVEL IV Diagnosis: Type 2 diabetes mellitus with hyperglycemia[ICD10: E11.65] Diagnosis: Essential (primary) hypertension[ICD10: I10] Diagnosis: Mixed hyperlipidemia[ICD10: E78.2] Virginie Isaac MD [facility] CPT-4: 32386 03/10/2016 [id number]) [id number] EST. PATIENT, LEVEL III Diagnosis: Essential (primary) hypertension[ICD10: I10] Diagnosis: Type 2 diabetes mellitus with hyperglycemia[ICD10: E11.65] Diagnosis: Hyperlipidemia, unspecified[ICD10: E78.5] Virginie Isaac MD, [facility] CPT-4: 13845 11/06/2015 ([id number]) Miscellaneous no charge Diagnosis: Essential (primary) hypertension[ICD10: I10] Scarlett Isaac MD, [facility] CPT-4: 02997 09/09/2015 ([id number]) 17364 EST. PATIENT, LEVEL III Diagnosis: Essential (primary) hypertension[ICD10: I10] Diagnosis: Other skin changes[ICD10: R23.8] Virginie Isaac MD, [facility] CPT-4: 31063 08/26/2015 ([id number]) 78089 EST. PATIENT, LEVEL IV Diagnosis: Essential (primary) hypertension[ICD10: I10] Diagnosis: Unspecified amblyopia, right eye[ICD10: H53.001] Diagnosis: Other skin changes[ICD10: R23.8] Virginie Isaac MD, [facility] CPT-4: 32208 07/29/2015 ([id number]) 63504 EST. PATIENT, LEVEL IV Diagnosis: Type 2 diabetes mellitus with hyperglycemia[ICD10: E11.65] Diagnosis: Essential (primary) hypertension[ICD10: I10] Diagnosis: Hyperlipidemia, unspecified[ICD10: E78.5] Virginie Isaac MD, [facility] CPT-4: 72027 04/29/2015 ([id number]) OFFICE VISIT, NEW - LEVEL 4 Diagnosis: ESSENTIAL HYPERTENSION[ICD9: 401.9] Diagnosis: DIABETES TYPE II[ICD9: 250.00] Diagnosis: ACTINIC KERATOSIS[ICD9: 702.0] Diagnosis: Impacted cerumen[ICD9: 380.4] Virginie Isaac MD, [facility] CPT- 4: 00941 10/23/2014 Plan of Care Planned Activity Notes Codes Status Date Visit Plan: HTN - pt's bp machine is not reliable and his blood pressure at home were in the 160-180's - I have recommended pt to get a new machine, bring it by the office for a check to assure machine accuracy - no change in medications at this time. Allergies with sore throat and cough - RX for mucinex sent to pharmacy - pt given kenalog shot today. 07/25/2018 Patient Education: Patient Medication Summary Completed 07/25/2018 Visit Plan: Hypertension -at home, blood pressure is well controlled - continue with current medications, continue with no added salt diet. Pt has been encouraged to exercise daily. The pt has been advised to call the office if there are any acute concerns about change in blood pressure readings at home. Diabetes Mellitus - not optimally controlled- per recent FSBS reports. I have recommended [...] readings are starting to become less controlled. 06/28/2018 Appointment: Virginie Isaac WPtel: [phone] [facility] (15 min) Moderate 06/28/2018 Patient Education: Patient Medication Summary Completed 06/28/2018 Appointment: Virginie Isaac WPtel: [phone] [facility] (15 min) Moderate 06/12/2018 Visit Plan: Medicare Exam - today we [...] surrogate. 03/20/2018 Appointment: Scarlett Omalley WPtel: [phone] [facility] [facility] - Annual Wellness Visit [...] on posterior scalp and one on left mormonism. 03/07/2018 Appointment: [facility] Iasac [facility] (15 min) Moderate 03/07/2018 Patient Education: Patient [...] recommended that he needs to see a Collaborating Supervising Physician, but Suleman is not interested at this time. He has agreed to have repeat bmp in one month off of the hctz and to start on renal diet. Prostate cancer - continue with plans to be seen by Dr. Modi at the cancer center. 01/30/2018 Appointment: [phone] [facility] [place] (15 min) Moderate 01/30/2018 Patient Education: Patient Medication Summary Completed 01/30/2018 App[facility]ment: [phone] [facility] (15 min) Moderate 01/10/2018 Visit Plan: [...] pt is not interested in seeing a Collaborating Supervising Physician as has been recommended to patient. 09/07/2017 Appointment: [phone] [facility] [place] (15 min) Moderate 09/07/2017 Patient [...] pt is not interested in seeing a Collaborating Supervising Physician as has been recommended to patient. Elevated PSA -pt seeing Dr. Harrison. 05/05/2017 Appointment: Virginie Isaac WPtel: [facility] (15 min) Moderate 05/05/2017 Patient Education: Patient Medication Summary Completed 05/05/2017 Appointment: Scarlett Omalley WPtel: [phone] [facility] (15 min) Moderate 04/14/2017 Appointment: Nurse Visit [...] care surrogate. 03/15/2017 App[facility]ment[phone] [place] [address] - Annual Wellness Visit 03/15/2017 Patient Education: [...] at home. 02/02/2017 Appointment: [phone] [facility] (15 min) Moderate 02/02/2017 Patient [...] Completed 01/04/2017 Appointment: [phone] [facility] (15 min) Moderate 12/23/2016 Appointment: Virginie Isaac WPtel: [facility] (15 min) Moderate 12/22/2016 Visit Plan: Hypertension [...] orange juice. 11/16/2016 Appointment: Virginie Isaac WPtel: [facility] (15 min) Moderate 11/16/2016 Patient [...] 07/19/2016 Appointment: Virginie Isaac WPtel: [phone] [facility] (15 min) Moderate 07/19/2016 Patient Education: Patient Medication Summary Completed 07/19/2016 Patient Education: Obesity Completed 07/19/2016 Patient Education: Hypertension Completed 07/19/2016 Appointment: Virginie Isaac WPtel: [phone] [facility] (15 min) Moderate 07/06/2016 Visit [...] surrogate. 03/12/2016 Appointment: Niecy Sullivan WPtel: [phone] [phone] [facility] - Annual Wellness Visit 03/12/2016 [...] hs 03/10/2016 Appointment: [phone] [facility] (15 min) Moderate 03/10/2016 Patient [...] Obesity Completed 11/06/2015 Appointment: [phone] (30 min) Complex 10/27/2015 Appointment: Nurse Visit [...] have repeat treatment - one on left mormonism and one on posterior scalp. 08/26/2015 Patient Education: Patient Medication Summary Completed 08/26/2015 Patient Education: Hypertension Completed 08/26/2015 Referral: Tariq Ramirez WPtel: [address] [place], [place] [address] Referral Completed 08/05/2015 Visit Plan: Hypertension - [...] of efudex. 07/29/2015 Appointment: Virginie Isaac WPtel: [address] [place], [place] [address] [place] (15 min) Moderate 07/29/2015 Patient Education: Patient Medication Summary Completed 07/29/2015 Patient Education: Obesity Completed 07/29/2015 Patient Education: Hypertension Completed 07/29/2015 Care Plan: Referral Order SNOMED-CT : [id number] Pending 07/29/2015 Patient Education: Patient Medication Summary [...] Care Plan: COMPLETE CBC AUTOMATED LOINC : 14426-3 Ordered 04/29/2015 Care Plan: MICROALBUMIN QUANTITATIVE LOINC : 49803-7 Ordered 04/29/2015 Appointment: (15 min) Moderate 03/31/2015 Appointment: Virginie Isaac WPtel: [address] [place], [place] [id number] (15 min) Moderate 01/22/2015 Visit Plan: Hypertension [...] office visit. 10/23/2014 Appointment: Virginie Isaac WPtel: [address] [place], [place] [id number] [place] ([place]) New Patient 10/23/2014 Patient Education: Patient Medication Summary Completed 10/23/2014 Patient Education: Hypertension Completed 10/23/2014 Referral: Tariq Ramirez WPtel: [id number] Referral Appointment Requested Instructions Comment . Hypertension -at home, blood pressure is well controlled - continue with current medications, continue with no added salt diet. Pt has been encouraged to exercise daily. The pt has been advised to call the office if there are any acute concerns about change in blood pressure readings at home. Diabetes Mellitus - not optimally controlled- per recent FSBS reports. I have recommended [...] readings are starting to become less controlled. pt to have hgba1c one week before [...] pt is not interested in seeing a Collaborating Supervising Physician as has been recommended to patient. use [...] or until next office visit. . Hypertension -at home, blood pressure is [...] on posterior scalp and one on left mormonism. . Medicare Exam - today we discussed [...] DOPA paperwork for health care surrogate. . HTN - pt's bp machine is not reliable and his blood pressure at home were in the 160-180's - I have recommended pt to get a new machine, bring it by the office for a check to assure machine accuracy - no change in medications at this time. Allergies with sore throat and cough - RX for mucinex sent to pharmacy - pt given kenalog shot today. stop METFORMIN and also STOP MELOXICAM - [...] pt is not interested in seeing a Collaborating Supervising Physician as has been recommended to patient. Elevated PSA -pt seeing Dr. Deborah. . Diabetes Mellitus - controlled - per [...] recommended use of efudex. . Hypertension - uncontrolled - the patient's [...] have repeat treatment - one on left mormonism and one on posterior scalp. get labs one week before your appt [...] recommended that he needs to see a Collaborating Supervising Physician, but Suleman is not interested at this time. He has agreed to have repeat bmp in one month off of the hctz and to start on renal diet. Prostate cancer - continue with plans to be seen by Dr. Modi at the cancer center.
--- OUTSIDE RECORDS SUMMARY | 2018-07-31 00:55 | XMS REPORT | CCD ---
Author Author Virginie Isaac Organization Virginie Isaac MD, [facility] Address [address] [place] [address] Phone Care Team Providers Care Medical Coding Manager Name Role Phone PP Unavailable CCM Unavailable Summary Purpose Interface Exchange Insurance Providers Payer name Policy type / Coverage type Covered alliance party ID Effective Begin Date Effective End Date WPS Medicare Part B Medicare Part B [id number] 2018 Unknown [facility] Medicare Part B No Plan Member [...] self employed 10/23/[address]: 611757612 Never smoker 10/23/[address]: 176001375 Never drinks alcohol 10/23/2014 Allergies, Adverse Reactions, Alerts Substance Reaction Codes Entered Date Inactivated Date Status * NO KNOWN DRUG ALLERGIES Unknown 10/23/2014 No Inactive Date Active Past Medical History Illness Codes Condition Status Onset Date Resolved Date Essential (primary) hypertension ICD-9: 401.1 ICD-10: I10 [...] Problems Condition Codes Effective Dates Condition Status Essential (primary) hypertension ICD-9: 401.1 ICD-10: I10 [...] Fill Instructions losartan 100 mg tablet RxNorm: 755615 TAKE 1 TABLET BY MOUTH DAILY 06/02/2018 12/28/2018 Active Generic For:COZAAR 100MG 06/02/2018 4:25:21 PM glimepiride 2 mg tablet RxNorm: 066280 TAKE 1/2 (ONE- HALF) TABLET BY MOUTH TWICE DAILY 06/02/2018 11/28/2018 Active Generic For:AMARYL 2MG 06/02/2018 4:25:26 PM simvastatin 20 mg tablet RxNorm: 879819 TAKE ONE TABLET BY MOUTH DAILY 03/06/2018 11/30/2018 Active Generic For:ZOCOR 20MG 03/06/2018 9:01:27 AM Truetest Test Strips RxNorm: TEST BLOOD SUGAR EVERY DAY 201711/26/2018 Active 01/30/2018 3:29:14 PM bisoprolol fumarate 5 mg tablet RxNorm: 443767 1 Tablet(s) PO BID 01/30/2018 08/27/2018 Active this replaces his combination pill glimepiride 2 mg tablet RxNorm: 057456 TAKE 1/2 (ONE- HALF) TABLET BY MOUTH TWICE DAILY 12/06/2017 06/01/2018 Inactive Generic For:AMARYL 2MG 12/06/2017 9:07:06 AM losartan 100 mg tablet RxNorm: 626236 TAKE 1 TABLET BY MOUTH DAILY 11/07/2017 06/01/2018 Inactive Generic For:COZAAR 100MG 11/07/2017 9:05:45 AM bisoprolol 5 mg-hydrochlorothiazide 6.25 mg tablet RxNorm: 596089 TAKE 1 TABLET BY MOUTH TWICE DAILY 09/15/20172017 Inactive Generic For:ZIAC 5-6.25MG 09/15/2017 9:07:10 AM glimepiride 2 mg tablet RxNorm: 211710 TAKE 1/2 (ONE- HALF) TABLET BY MOUTH TWICE DAILY 06/17/2017 12/05/2017 Inactive Generic For:AMARYL 2MG 06/17/2017 9:01:41 AM simvastatin 20 mg tablet RxNorm: 612900 TAKE ONE TABLET BY MOUTH DAILY 06/17/2017 03/05/2018 Inactive Generic For:ZOCOR 20MG 06/17/2017 9:01:38 AM losartan 100 mg tablet RxNorm: 649043 TAKE 1 TABLET BY MOUTH DAILY 04/18/2017 11/06/2017 Inactive Generic For:COZAAR 100MG 04/18/2017 9:40:33 AM bisoprolol 5 mg-hydrochlorothiazide 6.25 mg tablet RxNorm: 874376 TAKE 1 TABLET BY MOUTH TWICE DAILY 02/17/20172017 Inactive Generic For:ZIAC 5-6.25MG 02/17/2017 9:04:42 AM glimepiride 2 mg tablet RxNorm: 569996 1/2 Tablet(s) BID 201606/16/2017 Inactive Generic For:AMARYL 2MG 07/22/2016 9:03:39 AM Zithromax 250 mg tablet RxNorm: 128923 two pills on day #1 then 1 Tablet(s) PO daily 01/04/2017 01/08/2017 Inactive zpackx1 glimepiride 2 mg tablet RxNorm: 793138 1 Tablet(s) TAKE 1 TABLET BY MOUTH TWICE DAILY 11/17/2016 02/01/2017 Inactive Generic For:AMARYL 2MG 07/22/2016 9:03:39 AM glimepiride 2 mg tablet RxNorm: 161833 1 Tablet(s) TAKE 1 TABLET BY MOUTH TWICE DAILY 11/17/2016 11/16/2016 Inactive Generic For:AMARYL 2MG 07/22/2016 9:03:39 AM Ness Allergy 180 mg tablet RxNorm: 890816 1 Tablet(s) PO daily 10/25/2016 10/24/2016 Inactive Zithromax 250 mg tablet RxNorm: 601895 1 Tablet(s) PO daily 10/24/2016 Inactive zpackx1 Ness Allergy 180 mg tablet RxNorm: 478949 1 Tablet(s) PO daily 10/25/2016 03/07/2017 Inactive Zithromax 250 mg tablet RxNorm: 482229 1 Tablet(s) PO daily 10/29/2016 Inactive zpackx1 glimepiride 2 mg tablet RxNorm: 436380 1/2 Tablet(s) TAKE 1 TABLET BY MOUTH TWICE DAILY 10/12/2016 11/16/2016 Inactive Generic For:AMARYL 2MG 07/22/2016 9:03:39 AM losartan 100 mg tablet RxNorm: 696080 1 Tablet(s) PO daily 04/17/2017 Inactive metformin 500 mg tablet RxNorm: 857204 TAKE 1 TABLET BY MOUTH TWICE DAILY 09/20/2016 11/15/2016 Inactive Generic For:GLUCOPHAGE 500MG 09/20/2016 9:11:58 AM simvastatin 20 mg tablet RxNorm: 595764 TAKE ONE TABLET BY MOUTH DAILY 09/20/2016 06/16/2017 Inactive Generic For:ZOCOR 20MG 09/20/2016 9:11:29 AM bisoprolol 5 mg-hydrochlorothiazide 6.25 mg tablet RxNorm: 282014 TAKE 1 TABLET BY MOUTH TWICE DAILY 07/22/20162016 Inactive Generic For:ZIAC 5-6.25MG 07/22/2016 9:03:48 AM glimepiride 2 mg tablet RxNorm: 729094 TAKE 1 TABLET BY MOUTH TWICE DAILY 07/22/2016 10/11/2016 Inactive Generic For:AMARYL 2MG 07/22/2016 9:03:39 AM meloxicam 15 mg tablet RxNorm: 276728 TAKE 1 TABLET BY MOUTH DAILY 05/24/2016 11/15/2016 Inactive Generic For:MOBIC 15MG 05/24/2016 9:12:11 AM metformin 500 mg tablet RxNorm: 801211 1 Tablet(s) BID 201609/19/2016 Inactive Generic For:GLUCOPHAGE 500MG 04/29/2015 3:46:58 PM bisoprolol 5 mg-hydrochlorothiazide 6.25 mg tablet RxNorm: 902341 TAKE 1 TABLET BY MOUTH TWICE DAILY 03/31/20162016 Inactive Generic For:ZIAC 5-6.25MG 03/31/2016 12:38:33 PM glimepiride 2 mg tablet RxNorm: 914437 TAKE 1 TABLET BY MOUTH TWICE DAILY 03/31/2016 07/21/2016 Inactive Generic For:AMARYL 2MG 03/31/2016 12:38:28 PM losartan 100 mg tablet RxNorm: 010965 1 Tablet(s) PO daily 09/19/2016 Inactive simvastatin 20 mg tablet RxNorm: 354721 1 Tablet(s) PO daily 09/18/2016 Inactive glimepiride 2 mg tablet RxNorm: 504942 1 Tablet(s) PO BID 11/2303/22/2016 Inactive meloxicam 15 mg tablet RxNorm: 459952 1 Tablet(s) PO daily 05/21/2016 Inactive bisoprolol 5 mg-hydrochlorothiazide 6.25 mg tablet RxNorm: 858007 1 Tablet(s) PO BID 11/24/2015 03/22/2016 Inactive Generic For:ZIAC 5-6.25MG 03/31/2015 4:06:14 PM03/31/2015 3:58:36 PM metformin 500 mg tablet RxNorm: 361271 1 Tablet(s) BID 201504/04/2016 Inactive Generic For:GLUCOPHAGE 500MG 04/29/2015 3:46:58 PM losartan 50 mg tablet RxNorm: 844941 1 Tablet(s) PO daily 201502/29/2016 Inactive bisoprolol 5 mg-hydrochlorothiazide 6.25 mg tablet RxNorm: 032893 1 Tablet(s) PO BID 07/29/2015 11/23/2015 Inactive Generic For:ZIAC 5-6.25MG 03/31/2015 4:06:14 PM03/31/2015 3:58:36 PM bisoprolol 5 mg-hydrochlorothiazide 6.25 mg tablet RxNorm: 640203 Tablet(s) 1 TABLET(S) BY MOUTH DAILY 07/21/20152015 Inactive Generic For:ZIAC 5-6.25MG 03/31/2015 4:06:14 PM03/31/2015 3:58:36 PM meloxicam 15 mg tablet RxNorm: 756858 1 Tablet(s) PO daily 11/17/2015 Inactive glimepiride 2 mg tablet RxNorm: 441440 1 Tablet(s) PO BID 07/2011/17/2015 Inactive metformin 500 mg tablet RxNorm: 563935 Tablet(s) TAKE 1 TABLET BY MOUTH IN THE MORNING AND 1/2 TABLET IN THE EVENING 06/16/2015 11/06/2015 Inactive Generic For: GLUCOPHAGE 500MG 04/29/2015 3:46:58 PM metformin 500 mg tablet RxNorm: 260452 Tablet(s) TAKE 1 TABLET BY MOUTH IN THE MORNING AND 1/2 TABLET IN THE EVENING 05/19/2015 06/15/2015 Inactive Generic For: GLUCOPHAGE 500MG 04/29/2015 3:46:58 PM metformin 500 mg tablet RxNorm: 872344 TAKE 1/2 (ONE- HALF) TABLET BY MOUTH DAILY BY MOUTH TWICE DAILY 04/29/20152015 Inactive Generic For:GLUCOPHAGE 500MG 04/29/2015 3:46:58 PM meloxicam 15 mg tablet RxNorm: 211557 1 Tablet(s) PO daily 07/20/2015 Inactive simvastatin 20 mg tablet RxNorm: 819516 1 Tablet(s) PO daily 12/23/2015 Inactive bisoprolol 5 mg-hydrochlorothiazide 6.25 mg tablet RxNorm: 595667 1 TABLET(S) BY MOUTH DAILY 03/31/2015 07/20/2015 Inactive Generic For:ZIAC 5-6.25MG 03/31/2015 4: 06:14 PM03/31/2015 3:58:36 PM glimepiride 2 mg tablet RxNorm: 188002 1 Tablet(s) PO BID 02/0506/04/2015 Inactive increase to BID metformin 500 mg tablet RxNorm: 331853 1/2 Tablet(s) PO BID 04/20/2015 Inactive bisoprolol 5 mg-hydrochlorothiazide 6.25 mg tablet RxNorm: 876632 1 Tablet(s) PO daily 12/05/2014 12/04/2014 Inactive bisoprolol 5 mg-hydrochlorothiazide 6.25 mg tablet RxNorm: 639980 1 Tablet(s) PO daily 12/05/2014 03/30/2015 Inactive meloxicam 15 mg tablet RxNorm: 957415 1 Tablet(s) PO daily 04/201404/01/2015 Inactive Truetest Test Strips RxNorm: Miscellaneous daily 11/20/2014 11/19/2014 Inactive Truetest Test Strips RxNorm: Miscellaneous daily 11/20/2014 11/14/2015 Inactive tamsulosin 0.4 mg capsule RxNorm: 000107 1 Capsule(s) PO daily No Start Date Active simvastatin 20 mg tablet RxNorm: 052407 1 Tablet(s) PO daily No Start Date 04/01/2015 Inactive meloxicam 15 mg tablet RxNorm: 190689 1 Tablet(s) PO daily No Start Date 12/02/2014 Inactive finasteride 5 mg tablet RxNorm: 311262 1 Tablet(s) PO daily No Start Date 06/27/2018 Inactive metformin 500 mg tablet RxNorm: 133742 1/2 Tablet(s) PO BID No Start Date 01/20/2015 Inactive glimepiride 2 mg tablet RxNorm: 913955 1 Tablet(s) PO daily No Start Date 02/04/2015 Inactive Ziac 5 mg-6.25 mg tablet RxNorm: 503028 1 Tablet(s) PO daily No Start Date 04/02/2015 Inactive Medication Administered No Medication Administered data Immunizations No Immunization data Assessments Condition Codes Effective Dates Essential (primary) hypertension ICD-10: I10 ICD-9: 401.1 06/28/2018 Type 2 diabetes mellitus with hyperglycemia ICD-10: [...] Reason For Visit Effective Dates Notes hypertension 06/28/2018 Annual Medicare Wellness Exam 03/20/2018 [...] Metabolic Ord15 CALCIUM 9.5 mg/dL 03/03/2018 %Hba1C Eoq166 % HbA1c 65295-9 6.7 % 01/02/2018 %Hba1C Pja304 Gluc Ave 146 mg/dL 01/02/2018 Cbc With [...] 32.7 pg 01/02/2018 Cbc With Differential Ord2 Hamlin% 9.2 % 01/02/2018 Cbc With Differential Ord2 [...] 1.45 K/ul 01/02/2018 Cbc With Differential Ord2 [place] ABS# 0.7 K/ul 01/02/2018 Cbc With Differential Ord2 Eos ABS# 0.1 K/ul 01/02/2018 Cbc With Differential Ord2 Baso ABS# 0.0 K/ul 01/02/2018 Comp Metabolic Isi058 NA 138 mEq/L 01/02/2018 Comp Metabolic Wpw471 K 4.5 mEq/L 01/02/2018 Comp Metabolic Zza473 CL 103 mEq/L 01/02/2018 Comp Metabolic Cks399 CO2 28.0 mEq/L 01/02/2018 Comp Metabolic Xqa000 ANION GAP 12 01/02/2018 Comp Metabolic Jcg060 GLUCOSE 186 mg/dL 01/02/2018 Comp Metabolic Qeb082 Creat 1.9 mg/dL 01/02/2018 Comp Metabolic Vrv804 eGFR 37 ml/min/1.73m2 01/02/2018 Comp Metabolic Sfb312 BUN 23 mg/dL 01/02/2018 Comp Metabolic Zjb202 B/C Ratio 12.2 Ratio 01/02/2018 Comp Metabolic Rhi583 CALCIUM 9.4 mg/dL 01/02/2018 Comp Metabolic Xfs696 ALK PHOS 46 U/L 01/02/2018 Comp Metabolic Taf391 AST(SGOT) 16 U/L 01/02/2018 Comp Metabolic Fwn431 ALT(SGPT) 19 U/L 01/02/2018 Comp Metabolic Hqs221 BILI T 0.6 mg/dL 01/02/2018 Comp Metabolic Xqp565 ALBUMIN 3.8 g/dL 01/02/2018 Comp Metabolic Tfj502 TPRO 6.1 g/dL 01/02/2018 Comp Metabolic Jdf846 GLOB 2.3 g/dL 01/02/2018 Comp Metabolic Ise848 A/G Ratio 1.6 Ratio 01/02/2018 Comp Metabolic Awc760 Osmo 284 mOsmo 01/02/2018 %Hba1C Ypb206 % HbA1c 17284-7 6.5 % 08/31/2017 %Hba1C Cmk065 Gluc Ave 140 mg/dL 08/31/2017 Lipid Ord30 [...] 33.0 pg 08/31/2017 Cbc With Differential Ord2 Hamlin% 11.7 % 08/31/2017 Cbc With Differential Ord2 [...] 1.77 K/ul 08/31/2017 Cbc With Differential Ord2 [place] ABS# 0.9 K/ul 08/31/2017 Cbc With Differential Ord2 Eos ABS# 0.1 K/ul 08/31/2017 Cbc With Differential Ord2 Baso ABS# 0.0 K/ul 08/31/2017 Comp Metabolic Otx986 NA 139 mEq/L 08/31/2017 Comp Metabolic Rlu818 K 4.7 mEq/L 08/31/2017 Comp Metabolic Ltx432 CL 107 mEq/L 08/31/2017 Comp Metabolic Qnl828 CO2 24.0 mEq/L 08/31/2017 Comp Metabolic Pva977 ANION GAP 13 08/31/2017 Comp Metabolic Ioe043 GLUCOSE 158 mg/dL 08/31/2017 Comp Metabolic Tef333 Creat 1.7 mg/dL 08/31/2017 Comp Metabolic Nmu942 eGFR 43 ml/min/1.73m2 08/31/2017 Comp Metabolic Sly610 BUN 26 mg/dL 08/31/2017 Comp Metabolic Opf864 B/C Ratio 15.5 Ratio 08/31/2017 Comp Metabolic Ign609 CALCIUM 9.5 mg/dL 08/31/2017 Comp Metabolic Moc739 ALK PHOS 47 U/L 08/31/2017 Comp Metabolic Hdd977 AST(SGOT) 16 U/L 08/31/2017 Comp Metabolic Vsd035 ALT(SGPT) 17 U/L 08/31/2017 Comp Metabolic Lba186 BILI T 0.8 mg/dL 08/31/2017 Comp Metabolic Wjm005 ALBUMIN 4.0 g/dL 08/31/2017 Comp Metabolic Xqj849 TPRO 6.4 g/dL 08/31/2017 Comp Metabolic Iyq759 GLOB 2.5 g/dL 08/31/2017 Comp Metabolic Rmt354 A/G Ratio 1.6 Ratio 08/31/2017 Comp Metabolic Lyn765 Osmo 286 mOsmo 08/31/2017 Tsh Ord6 hTSH [...] 32.5 pg 04/27/2017 Cbc With Differential Ord2 Hamlin% 10.5 % 04/27/2017 Cbc With Differential Ord2 [...] 1.42 K/ul 04/27/2017 Cbc With Differential Ord2 [place] ABS# 0.7 K/ul 04/27/2017 Cbc With Differential Ord2 Eos ABS# 0.1 K/ul 04/27/2017 Cbc With Differential Ord2 Baso ABS# 0.0 K/ul 04/27/2017 %Hba1C Loo974 % HbA1c 14232-9 6.5 % 04/27/2017 %Hba1C Iug847 Gluc Ave 140 mg/dL 04/27/2017 Lipid Ord30 CHOL 134 mg/dL 04/27/2017 Lipid Ord30 HDL 44.0 mg/dl 04/27/2017 Lipid Ord30 TRIG 89 mg/dL 04/27/2017 Lipid Ord30 LDL 72 mg/dL 04/27/2017 Lipid Ord30 C/HDL 3.0 Ratio 04/27/2017 Comp Metabolic Njj400 NA 140 mEq/L 04/27/2017 Comp Metabolic Wjh093 K 4.3 mEq/L 04/27/2017 Comp Metabolic Ipu667 CL 105 mEq/L 04/27/2017 Comp Metabolic Qxt791 CO2 26.0 mEq/L 04/27/2017 Comp Metabolic Zxr620 ANION GAP 13 04/27/2017 Comp Metabolic Pvv125 GLUCOSE 117 mg/dL 04/27/2017 Comp Metabolic Iuf159 Creat 1.6 mg/dL 04/27/2017 Comp Metabolic Bsp522 eGFR 45 ml/min/1.73m2 04/27/2017 Comp Metabolic Rms453 BUN 27 mg/dL 04/27/2017 Comp Metabolic Bbz742 B/C Ratio 16.9 Ratio 04/27/2017 Comp Metabolic Jaq973 CALCIUM 9.5 mg/dL 04/27/2017 Comp Metabolic Nzt523 ALK PHOS 55 U/L 04/27/2017 Comp Metabolic Ssc057 AST(SGOT) 20 U/L 04/27/2017 Comp Metabolic Sqz302 ALT(SGPT) 18 U/L 04/27/2017 Comp Metabolic Mgh410 BILI T 0.4 mg/dL 04/27/2017 Comp Metabolic Adr994 ALBUMIN 4.0 g/dL 04/27/2017 Comp Metabolic Qfr016 TPRO 6.5 g/dL 04/27/2017 Comp Metabolic Vhc408 GLOB 2.5 g/dL 04/27/2017 Comp Metabolic Cbx965 A/G Ratio 1.6 Ratio 04/27/2017 Comp Metabolic Sge592 Osmo 286 mOsmo 04/27/2017 Total Psa Ord10 PSA 7.87 ng/mL 04/27/2017 Comp Metabolic Ycz771 NA 136 mEq/L 12/29/2016 Comp Metabolic Uxw922 K 4.5 mEq/L 12/29/2016 Comp Metabolic Gkp100 CL 103 mEq/L 12/29/2016 Comp Metabolic Edi908 CO2 24.0 mEq/L 12/29/2016 Comp Metabolic Ujh875 ANION GAP 14 12/29/2016 Comp Metabolic Bpv581 GLUCOSE 164 mg/dL 12/29/2016 Comp Metabolic Oxq416 Creat 1.7 mg/dL 12/29/2016 Comp Metabolic Krq129 eGFR 43 ml/min/1.73m2 12/29/2016 Comp Metabolic Etp610 BUN 22 mg/dL 12/29/2016 Comp Metabolic Kdv570 B/C Ratio 13.3 Ratio 12/29/2016 Comp Metabolic Abv076 CALCIUM 9.5 mg/dL 12/29/2016 Comp Metabolic Vjs504 ALK PHOS 58 U/L 12/29/2016 Comp Metabolic Ymf460 AST(SGOT) 16 U/L 12/29/2016 Comp Metabolic Jnl251 ALT(SGPT) 16 U/L 12/29/2016 Comp Metabolic Okm985 BILI T 0.9 mg/dL 12/29/2016 Comp Metabolic Igy648 ALBUMIN 3.9 g/dL 12/29/2016 Comp Metabolic Unt119 TPRO 6.4 g/dL 12/29/2016 Comp Metabolic Lvz933 GLOB 2.5 g/dL 12/29/2016 Comp Metabolic Egh435 A/G Ratio 1.5 Ratio 12/29/2016 Comp Metabolic Bjs658 Osmo 279 mOsmo 12/29/2016 Total Psa Ord10 PSA 8.44 ng/mL 11/09/2016 %Hba1C Gji617 % HbA1c 96752-9 6.4 % 11/09/2016 %Hba1C Ysl549 Gluc Ave 137 mg/dL 11/09/2016 Cbc With [...] 33.8 pg 11/09/2016 Cbc With Differential Ord2 Hamlin% 11.8 % 11/09/2016 Cbc With Differential Ord2 [...] 2.29 K/ul 11/09/2016 Cbc With Differential Ord2 [place] ABS# 1.1 K/ul 11/09/2016 Cbc With Differential Ord2 Eos ABS# 0.3 K/ul 11/09/2016 Cbc With Differential Ord2 Baso ABS# 0.0 K/ul 11/09/2016 Lipid Ord30 CHOL 152 mg/dL 11/09/2016 Lipid Ord30 HDL 46.0 mg/dl 11/09/2016 Lipid Ord30 TRIG 144 mg/dL 11/09/2016 Lipid Ord30 LDL 77 mg/dL 11/09/2016 Lipid Ord30 C/HDL 3.3 Ratio 11/09/2016 Comp Metabolic Qrh143 NA 140 mEq/L 11/09/2016 Comp Metabolic Xcb093 K 4.9 mEq/L 11/09/2016 Comp Metabolic Ndz107 CL 106 mEq/L 11/09/2016 Comp Metabolic Xnp858 CO2 25.0 mEq/L 11/09/2016 Comp Metabolic Iyz584 ANION GAP 14 11/09/2016 Comp Metabolic Tbj402 GLUCOSE 127 mg/dL 11/09/2016 Comp Metabolic Ugs185 Creat 1.7 mg/dL 11/09/2016 Comp Metabolic Lxk622 eGFR 43 ml/min/1.73m2 11/09/2016 Comp Metabolic Qoq720 BUN 21 mg/dL 11/09/2016 Comp Metabolic Ccz141 B/C Ratio 12.7 Ratio 11/09/2016 Comp Metabolic Cvx758 CALCIUM 9.5 mg/dL 11/09/2016 Comp Metabolic Olf298 ALK PHOS 45 U/L 11/09/2016 Comp Metabolic Yuu786 AST(SGOT) 18 U/L 11/09/2016 Comp Metabolic Bpf570 ALT(SGPT) 16 U/L 11/09/2016 Comp Metabolic Mjo096 BILI T 0.6 mg/dL 11/09/2016 Comp Metabolic Bxj132 ALBUMIN 3.9 g/dL 11/09/2016 Comp Metabolic Ejz899 TPRO 6.4 g/dL 11/09/2016 Comp Metabolic Mxt167 GLOB 2.5 g/dL 11/09/2016 Comp Metabolic Uin115 A/G Ratio 1.5 Ratio 11/09/2016 Comp Metabolic Ivx417 Osmo 284 mOsmo 11/09/2016 Tsh Ord6 hTSH [...] 32.9 pg 03/10/2016 Cbc With Differential Ord2 Hamlin% 10.6 % 03/10/2016 Cbc With Differential Ord2 [...] 1.48 K/ul 03/10/2016 Cbc With Differential Ord2 [place] ABS# 1.0 K/ul 03/10/2016 Cbc With Differential Ord2 Eos ABS# 0.1 K/ul 03/10/2016 Cbc With Differential Ord2 Baso ABS# 0.0 K/ul 03/10/2016 %Hba1C Bxg599 % HbA1c 71880-0 6.6 % 03/10/2016 %Hba1C Cmb620 Gluc Ave 143 mg/dL 03/10/2016 Comp Metabolic Xbo867 NA 138 mEq/L 03/10/2016 Comp Metabolic Vos379 K 4.9 mEq/L 03/10/2016 Comp Metabolic Kyc386 CL 102 mEq/L 03/10/2016 Comp Metabolic Fpt535 CO2 28.0 mEq/L 03/10/2016 Comp Metabolic Nxk306 ANION GAP 13 03/10/2016 Comp Metabolic Kla792 GLUCOSE 135 mg/dL 03/10/2016 Comp Metabolic Coz208 Creat 1.5 mg/dL 03/10/2016 Comp Metabolic Fvi661 eGFR 51 ml/min/1.73m2 03/10/2016 Comp Metabolic Jrh904 BUN 28 mg/dL 03/10/2016 Comp Metabolic Gtr538 B/C Ratio 19.3 Ratio 03/10/2016 Comp Metabolic Age749 CALCIUM 9.8 mg/dL 03/10/2016 Comp Metabolic Aog476 ALK PHOS 52 U/L 03/10/2016 Comp Metabolic Hvt027 AST(SGOT) 19 U/L 03/10/2016 Comp Metabolic Pgd483 ALT(SGPT) 22 U/L 03/10/2016 Comp Metabolic Ncf668 BILI T 0.5 mg/dL 03/10/2016 Comp Metabolic Syq149 ALBUMIN 4.4 g/dL 03/10/2016 Comp Metabolic Ofa075 TPRO 6.8 g/dL 03/10/2016 Comp Metabolic Nsj810 GLOB 2.4 g/dL 03/10/2016 Comp Metabolic Bfd316 A/G Ratio 1.8 Ratio 03/10/2016 Comp Metabolic Lhv497 Osmo 283 mOsmo 03/10/2016 Comp Metabolic Jfs616 NA 136 mEq/L 11/06/2015 Comp Metabolic Eln067 K 4.0 mEq/L 11/06/2015 Comp Metabolic Bqg085 CL 102 mEq/L 11/06/2015 Comp Metabolic Tmt170 CO2 27.0 mEq/L 11/06/2015 Comp Metabolic Neo438 ANION GAP 11 11/06/2015 Comp Metabolic Ojp455 GLUCOSE 144 mg/dL 11/06/2015 Comp Metabolic Bei777 Creat 1.2 mg/dL 11/06/2015 Comp Metabolic Igj046 eGFR 64 ml/min/1.73m2 11/06/2015 Comp Metabolic Sgt999 BUN 23 mg/dL 11/06/2015 Comp Metabolic Dpw340 B/C Ratio 19.3 Ratio 11/06/2015 Comp Metabolic Xtd246 CALCIUM 10.2 mg/dL 11/06/2015 Comp Metabolic Osx263 ALK PHOS 52 U/L 11/06/2015 Comp Metabolic Ich389 AST(SGOT) 16 U/L 11/06/2015 Comp Metabolic Fgw439 ALT(SGPT) 19 U/L 11/06/2015 Comp Metabolic Onj235 BILI T 0.7 mg/dL 11/06/2015 Comp Metabolic Zzb205 ALBUMIN 4.3 g/dL 11/06/2015 Comp Metabolic Dhv945 TPRO 6.8 g/dL 11/06/2015 Comp Metabolic Ldg169 GLOB 2.5 g/dL 11/06/2015 Comp Metabolic Lbl116 A/G Ratio 1.7 Ratio 11/06/2015 Comp Metabolic Exu142 Osmo 278 mOsmo 11/06/2015 Lipid Ord30 CHOL 152 mg/dL 11/06/2015 Lipid Ord30 HDL 48.0 mg/dl 11/06/2015 Lipid Ord30 TRIG 79 mg/dL 11/06/2015 Lipid Ord30 LDL 88 mg/dL 11/06/2015 Lipid Ord30 C/HDL 3.2 Ratio 11/06/2015 %Hba1C Cyc376 % HbA1c 62078-2 7.3 % 11/06/2015 %Hba1C Oco975 Gluc Ave 163 mg/dL 11/06/2015 Cbc With [...] 32.8 pg 06/05/2015 Cbc With Differential Ord2 [place]% 9.8 % 06/05/2015 Cbc With Differential Ord2 [...] 1.97 K/ul 06/05/2015 Cbc With Differential Ord2 [place] ABS# 0.9 K/ul 06/05/2015 Cbc With Differential Ord2 Eos ABS# 0.1 K/ul 06/05/2015 Cbc With Differential Ord2 Baso ABS# 0.0 K/ul 06/05/2015 Cbc With Differential Ord2 New Analyzer Notice Please note new ref ranges starting 04-16-2015 due to implemntation of new five part differential hematolgy analyzer. 06/05/2015 %Hba1C Xay691 % HbA1c 17673-7 7.1 % 05/08/2015 %Hba1C Zcw246 Gluc Ave 157 mg/dL 05/08/2015 Microalbumin Kla885 MicroAlb 1.2 mg/dL 05/01/2015 Cbc With Differential [...] 33.1 pg 04/30/2015 Cbc With Differential Ord2 [place]% 11.2 % 04/30/2015 Cbc With Differential Ord2 [...] 2.41 K/ul 04/30/2015 Cbc With Differential Ord2 [place] ABS# 0.9 K/ul 04/30/2015 Cbc With Differential [...] hTSH II 1.35 uIU/mL 04/30/2015 Comp Metabolic Deq620 NA 136 mEq/L 04/30/2015 Comp Metabolic Ejy456 K 4.5 mEq/L 04/30/2015 Comp Metabolic Jom938 CL 100 mEq/L 04/30/2015 Comp Metabolic Owi437 CO2 28.0 mEq/L 04/30/2015 Comp Metabolic Rbs911 ANION GAP 13 04/30/2015 Comp Metabolic Sbe410 GLUCOSE 162 mg/dL 04/30/2015 Comp Metabolic Edk269 Creat 1.2 mg/dL 04/30/2015 Comp Metabolic Vur325 eGFR 62 ml/min/1.73m2 04/30/2015 Comp Metabolic Ulv824 BUN 21 mg/dL 04/30/2015 Comp Metabolic Ckg079 B/C Ratio 17.4 Ratio 04/30/2015 Comp Metabolic Djn862 CALCIUM 9.9 mg/dL 04/30/2015 Comp Metabolic Zee740 ALK PHOS 51 U/L 04/30/2015 Comp Metabolic Gnv467 AST(SGOT) 18 U/L 04/30/2015 Comp Metabolic Ajr967 ALT(SGPT) 23 U/L 04/30/2015 Comp Metabolic Xgi825 BILI T 0.5 mg/dL 04/30/2015 Comp Metabolic Iov029 ALBUMIN 4.2 g/dL 04/30/2015 Comp Metabolic Sln491 TPRO 6.9 g/dL 04/30/2015 Comp Metabolic Btq331 GLOB 2.7 g/dL 04/30/2015 Comp Metabolic Qqp720 A/G Ratio 1.6 Ratio 04/30/2015 Comp Metabolic Ptq398 Osmo 278 mOsmo 04/30/2015 Metabolic Ord15 NA [...] Differential Ord2 RDW 13.6 % 01/28/2015 %Hba1C Jai493 % HbA1c 25834-6 7.3 % 01/28/2015 %Hba1C Qwf751 Gluc Ave 163 mg/dL 01/28/2015 %Hba1C Vyl247 % HbA1c 34348-1 7.8 % 10/24/2014 %Hba1C Puf838 Gluc Ave 177 mg/dL 10/24/2014 Cbc With [...] Ord2 RDW 13.7 % 10/23/2014 Comp Metabolic Hev683 NA 135 mEq/L 10/23/2014 Comp Metabolic Cgt431 K 4.4 mEq/L 10/23/2014 Comp Metabolic Gcz889 CL 99 mEq/L 10/23/2014 Comp Metabolic Nhs713 CO2 31.0 mEq/L 10/23/2014 Comp Metabolic Grj013 ANION GAP 9 10/23/2014 Comp Metabolic Dxm451 GLUCOSE 203 mg/dL 10/23/2014 Comp Metabolic Gti476 Creat 1.1 mg/dL 10/23/2014 Comp Metabolic Ari472 eGFR 72 ml/min/1.73m2 10/23/2014 Comp Metabolic Qay707 BUN 19 mg/dL 10/23/2014 Comp Metabolic Ljk175 B/C Ratio 17.8 Ratio 10/23/2014 Comp Metabolic Rqa836 CALCIUM 10.2 mg/dL 10/23/2014 Comp Metabolic Itl001 ALK PHOS 55 U/L 10/23/2014 Comp Metabolic Vfs680 AST(SGOT) 22 U/L 10/23/2014 Comp Metabolic Lxt768 ALT(SGPT) 34 U/L 10/23/2014 Comp Metabolic Aes355 BILI T 0.8 mg/dL 10/23/2014 Comp Metabolic Vfp467 ALBUMIN 4.3 g/dL 10/23/2014 Comp Metabolic Omg965 TPRO 6.7 g/dL 10/23/2014 Comp Metabolic Skv417 GLOB 2.4 g/dL 10/23/2014 Comp Metabolic Fme455 A/G Ratio 1.8 Ratio 10/23/2014 Comp Metabolic Mid462 Osmo 278 mOsmo 10/23/2014 Review of Systems [...] accomodation 06/28/2018 None Full Exam - General 1995 Ears/Nose/Throat oral cavity/pharynx/larynx Overall: oral mucosa clear 06/28/2018 None Full Exam - General 1995 Ears/Nose/Throat [...] inspection of skin Location: face 06/28/2018 left protestant nodular lesion treated with cryotherapy x 3 [...] inspection of skin Location: face 03/07/2018 left protestant nodular lesion treated with cryotherapy x 3 [...] -4: G0439 03/20/2018 DESTRUCT PREMALG LESION CPT-4: 76943 03/07/2018 DESTRUCT PREMALG LES 2-14 CPT-4: 67209 03/07/2018 PPPS, SUBSEQ VISIT CPT -4: G0439 03/15/2017 PPPS, SUBSEQ VISIT CPT -4: G0439 03/12/2016 DESTRUCT PREMALG LESION CPT-4: 28523 10/23/2014 DESTRUCT PREMALG LES 2-14 CPT-4: 09188 10/23/2014 Vital Signs Date Vital 06/28/2018 Blood Pressure 1: 158/70 Code : 8480-6 BMI: 30.1 Code : 88317-4 Heart Rate 1 : 62 bpm Height: 5'5" SpO2: 97% Weight: 181 lbs 03/20/2018 Blood Pressure 1: 140/62 Code : 8480-6 BMI: 29.8 Code : 93154-8 Heart Rate 1 : 59 bpm Height: 5'5" SpO2: 96% Weight: 179 lbs 03/07/2018 Blood Pressure 1: 160/80 Code : 8480-6 BMI: 29.8 Code : 78313-9 Heart Rate 1 : 56 bpm Height: 5'5" SpO2: 96% Weight: 179 lbs 01/30/2018 Blood Pressure 1: 144/64 Code : 8480-6 Blood Pressure 2: 150/64 Code: 8480-6 BMI: 29.6 Code: 73215-5 Heart Rate 1: 61 bpm Height: 5'5" SpO2: 98% Weight: 178 lbs 09/07/2017 Blood Pressure 1: 148/68 Code : 8480-6 BMI: 29.6 Code : 06641-1 Heart Rate 1 : 60 bpm Height: 5'5" SpO2: 98% Weight: 178 lbs 05/05/2017 Blood Pressure 1: 122/64 Code : 8480-6 BMI: 28.3 Code : 59889-3 Heart Rate 1 : 56 bpm Height: 5'5" SpO2: 97% Weight: 170 lbs 2017 BMI: 29.1 Code: 03892-2 Height: 5'5" Weight: 175 lbs 03/15/2017 Blood Pressure 1: 136/76 Code : 8480-6 BMI: 29.1 Code : 03963-5 Heart Rate 1 : 82 bpm Height: 5'5" SpO2: 98% Weight: 175 lbs 03/03/2017 BMI: 29.1 Code: 62438-7 Height: 5'5" Weight: 175 lbs 02/02/2017 Blood Pressure 1: 132/60 Code : 8480-6 BMI: 28.6 Code : 15760-1 Heart Rate 1 : 64 bpm Height: 5'5" SpO2: 99% Weight: 172 lbs 01/04/2017 Blood Pressure 1: 138/70 Code : 8480-6 BMI: 29.6 Code : 27533-6 Heart Rate 1 : 59 bpm Height: 5'5" SpO2: 99% Weight: 178 lbs 11/16/2016 Blood Pressure 1: 150/70 Code : 8480-6 BMI: 30.6 Code : 55076-4 Heart Rate 1 : 68 bpm Height: 5'5" SpO2: 94% Weight: 184 lbs 07/19/2016 Blood Pressure 1: 150/70 Code : 8480-6 Blood Pressure 2: 154/70 Code: 8480-6 BMI: 31.0 Code: 60434-6 Heart Rate 1: 61 bpm Height: 5'5" SpO2: 98% Weight: 186 lbs 03/12/2016 Blood Pressure 1: 156/80 Code : 8480-6 BMI: 30.5 Code : 64789-2 Heart Rate 1 : 60 bpm Height: 5'5" SpO2: 98% Waist Measure (cm): 91 cm Weight: 183 lbs 03/10/2016 Blood Pressure 1: 158/78 Code : 8480-6 Blood Pressure 1: 158/78 Code: 8480-6 BMI: 30.5 Code: 77728-8 Heart Rate 1: 61 bpm Height: 5'5" SpO2: 98% Weight: 183 lbs 11/06/2015 Blood Pressure 1: 156/80 Code : 8480-6 Blood Pressure 1: 138/70 Code: 8480-6 BMI: 30.1 Code: 46661-8 Heart Rate 1: 64 bpm Height: 5'5" SpO2: 98% Weight: 181 lbs 09/09/2015 Blood Pressure 1: 126/68 Code : 8480-6 08/26/2015 Blood Pressure 1: 168/74 Code : 8480-6 Blood Pressure 1: 162/76 Code: 8480-6 BMI: 29.8 Code: 42529-3 Heart Rate 1: 61 bpm Height: 5'5" SpO2: 98% Weight: 179 lbs 07/29/2015 Blood Pressure 1: 166/76 Code : 8480-6 BMI: 30.0 Code : 81069-9 Heart Rate 1 : 75 bpm Height: 5'5" SpO2: 99% Weight: 180 lbs 04/29/2015 Blood Pressure 1: 130/70 Code : 8480-6 Blood Pressure 1: 132/76 Code: 8480-6 BMI: 30.8 Code: 92951-1 Heart Rate 1: 64 bpm Height: 5'5" SpO2: 99% Weight: 185 lbs 10/23/2014 Blood Pressure 1: 140/76 Code : 8480-6 BMI: 30.5 Code : 02425-9 Heart Rate 1 : 63 bpm Height: 5'5" SpO2: 98% Weight: 183 lbs Functional Status No Functional Status data History of Present Illness Symptom Name Status Result Effective Date Notes Quality chronic 06/28 None Quality primary hypertension [...] - checks twice weekly on Mon and Thurs diabetes mellitus Test results Pt checking blood [...] data Encounters Encounter Performer Location Codes Date ([id number]) 26002 EST. PATIENT, LEVEL IV Diagnosis: Essential (primary) hypertension[ICD10: I10] Diagnosis: Type 2 diabetes mellitus with hyperglycemia[ICD10: E11.65] Virginie Isaac MD , [facility] CPT-4: 30833 06/28/2018 ([id number]) 00266 EST. PATIENT, LEVEL IV Diagnosis: Essential (primary) hypertension[ICD10: I10] Diagnosis: Chronic kidney disease, stage 3 (moderate)[ICD10: N18.3] Diagnosis: Type 2 diabetes mellitus with hyperglycemia[ICD10: E11.65] Virginie Isaac MD , [facility] CPT-4: 14848 03/07/2018 ([id number]) 71878 EST. PATIENT, LEVEL IV Diagnosis: Type 2 diabetes mellitus with hyperglycemia[ICD10: E11.65] Diagnosis: Chronic kidney disease, stage 3 (moderate)[ICD10: N18.3] Diagnosis: Essential (primary) hypertension[ICD10: I10] Virginie Isaac MD, [facility] CPT-4: 50289 01/30/2018 [id number]) 44676 EST. PATIENT, LEVEL IV Diagnosis: Essential (primary) hypertension[ICD10: I10] Diagnosis: Type 2 diabetes mellitus without complications[ICD10: E11.9] Diagnosis: Malignant neoplasm of prostate[ICD10: C61] Diagnosis: Chronic kidney disease, stage 3 (moderate)[ICD10: N18.3] Virginie Iasac MD [facility] CPT-4: 65793 09/07/2017 ([id number]) 90141 EST. PATIENT, LEVEL IV Diagnosis: Type 2 diabetes mellitus without complications[ICD10: E11.9] Diagnosis: Essential (primary) hypertension[ICD10: I10] Diagnosis: Changes in skin texture[ICD10: R23.4] Diagnosis: Chronic kidney disease, stage 3 (moderate)[ICD10: N18.3] Virginie Isaac MD [facility] CPT-4: 43058 05/05/2017 ([id number]) Miscellaneous no charge Diagnosis: Abnormal weight loss[ICD10: R63.4] Virginie Isaac MD [facility] CPT-4: 88628 2017 ([id number]) Miscellaneous no charge Diagnosis: Abnormal weight loss[ICD10: R63.4] Virginie Isaac MD [facility] CPT-4: 42750 03/03/2017 ([id number]) 23879 EST. PATIENT, LEVEL III Diagnosis: Type 2 diabetes mellitus with hyperglycemia[ICD10: E11.65] Diagnosis: Essential (primary) hypertension[ICD10: I10] Virginie Isaac MD [facility] CPT-4: 87497 02/02/2017 ([id number]) 81739 EST. PATIENT, LEVEL IV Diagnosis: Type 2 diabetes mellitus with hyperglycemia[ICD10: E11.65] Diagnosis: Essential (primary) hypertension[ICD10: I10] Diagnosis: Chronic kidney disease, stage 3 (moderate)[ICD10: N18.3] Virginie Isaac MD [facility] CPT-4: 21181 01/04/2017 ([id number]) 87491 EST. PATIENT, LEVEL IV Diagnosis: Type 2 diabetes mellitus with hyperglycemia[ICD10: E11.65] Diagnosis: Essential (primary) hypertension[ICD10: I10] Diagnosis: Chronic kidney disease, stage 3 (moderate)[ICD10: N18.3] Diagnosis: Elevated prostate specific antigen [PSA][ICD10: R97.20] Virginie Isaac MD [facility] CPT-4: 09385 11/16/2016 ([id number]) 54166 EST. PATIENT, LEVEL IV Diagnosis: Essential (primary) hypertension[ICD10: I10] Diagnosis: Type 2 diabetes mellitus with hyperglycemia[ICD10: E11.65] Diagnosis: Mixed hyperlipidemia[ICD10: E78.2] Virginie Isaac MD [facility] CPT-4: 05096 07/19/2016 ([id number]) 61137 EST. PATIENT, LEVEL IV Diagnosis: Type 2 diabetes mellitus with hyperglycemia[ICD10: E11.65] Diagnosis: Essential (primary) hypertension[ICD10: I10] Diagnosis: Mixed hyperlipidemia[ICD10: E78.2] Virginie Isaac MD [facility] CPT-4: 27055 03/10/2016 ([id number]) 24696 EST. PATIENT, LEVEL III Diagnosis: Essential (primary) hypertension[ICD10: I10] Diagnosis: Type 2 diabetes mellitus with hyperglycemia[ICD10: E11.65] Diagnosis: Hyperlipidemia, unspecified[ICD10: E78.5] Virginie Isaac MD [facility] CPT-4: 77277 11/06/2015 ([id number]) Miscellaneous no charge Diagnosis: Essential (primary) hypertension[ICD10: I10] Scarlett Isaac MD [facility] CPT-4: 40280 09/09/2015 ([id number]) 45868 EST. PATIENT, LEVEL III Diagnosis: Essential (primary) hypertension[ICD10: I10] Diagnosis: Other skin changes[ICD10: R23.8] Virginie Isaca MD [facility] CPT-4: 23706 08/26/2015 ([id number]) 65187 EST. PATIENT, LEVEL IV Diagnosis: Essential (primary) hypertension[ICD10: I10] Diagnosis: Unspecified amblyopia, right eye[ICD10: H53.001] Diagnosis: Other skin changes[ICD10: R23.8] Virginie Isaac MD [facility] CPT-4: 05801 07/29/2015 ([id number]) 29673 EST. PATIENT, LEVEL IV Diagnosis: Type 2 diabetes mellitus with hyperglycemia[ICD10: E11.65] Diagnosis: Essential (primary) hypertension[ICD10: I10] Diagnosis: Hyperlipidemia, unspecified[ICD10: E78.5] [facility] CPT-4: 48581 04/29/2015 ([id number]) OFFICE VISIT, NEW - LEVEL 4 Diagnosis: ESSENTIAL HYPERTENSION[ICD9: 401.9] Diagnosis: DIABETES TYPE II[ICD9: 250.00] Diagnosis: ACTINIC KERATOSIS[ICD9: 702.0] Diagnosis: Impacted cerumen[ICD9: 380.4] [facility] CPT- 4: 80611 10/23/2014 Plan of Care Planned Activity Notes [...] are starting to become less controlled. 06/28/2018 Patient Education: Patient Medication Summary Completed 06/28/2018 Appointment: Virginie Isaac WPtel: [address] [place], [place] [id number] (15 min) Moderate 06/12/2018 Visit Plan: Medicare [...] surrogate. 03/20/2018 Appointment: [phone] [facility] - Annual Wellness Visit 03/20/2018 Patient Education: [...] on posterior scalp and one on left protestant. 03/07/2018 [facility]ment: [phone] (15 min) Moderate 03/07/2018 Patient Education: [...] recommended that he needs to see a Drawing In Machine Tender, but Suleman is not interested at this time. He has agreed to have repeat bmp in one month off of the hctz and to start on renal diet. Prostate cancer - continue with plans to be seen by Dr. Modi at the cancer center. 01/30/2018 Appointment: [phone] [facility] (15 min) Moderate 01/30/2018 Patient Education: Patient Medication Summary Completed 01/30/2018 Appointment: [phone] [facility] (15 min) Moderate 01/10/2018 Visit Plan: [...] pt is not interested in seeing a Drawing In Machine Tender as has been recommended to patient. 09/07/2017 Appointment: Virginie Isaac WPtel: [phone] [facility] (15 min) Moderate 09/07/2017 Patient Education: Patient [...] pt is not interested in seeing a Drawing In Machine Tender as has been recommended to patient. Elevated PSA -pt seeing Dr. Harrison. 05/05/2017 Appointment: Virginie Isaac WPtel: [phone] [facility] (15 min) Moderate 05/05/2017 Patient Education: Patient Medication Summary Completed 05/05/2017 Appointment: [facility] Omalley [facility]el[phone] (15 min) Moderate 04/14/2017 Appointment: Nurse [...] surrogate. 03/15/2017 Appointment: Nie[facility] Sullivan [facility]el[phone] [facility] [facility] - Annual Wellness Visit 03/15/2017 Patient [...] home. 02/02/2017 Appointment: [phone] [facility] (15 min) Moderate 02/02/2017 Patient Education: [...] Completed 01/04/2017 Appointment: [phone] [facility] [place] (15 min) Moderate 12/23/2016 Appointment: [phone] [facility] [place] (15 min) Moderate 12/22/2016 Visit Plan: [...] orange juice. 11/16/2016 Appointment: [phone] [facility] [place] (15 min) Moderate 11/16/2016 Patient Education: [...] to medications. 07/19/2016 Appointment: Virginie Isaac WPtel: [facility] (15 min) Moderate 07/19/2016 Patient Education: Patient Medication Summary Completed 07/19/2016 Patient Education: Obesity Completed 07/19/2016 Patient Education: Hypertension Completed 07/19/2016 Appointment: Virginie Isaac WPtel: [facility] (15 min) Moderate 07/06/2016 Visit Plan: [...] care surrogate. 03/12/2016 Appointment: Niecy Sullivan WPtel: [facility] [facility] - Annual Wellness Visit 03/12/2016 Patient [...] at hs 03/10/2016 Appointment: [phone] (15 min) Moderate 03/10/2016 Patient Education: [...] Obesity Completed 11/06/2015 Appointment: Niecy Sullivan [facility]Ptel[phone] (30 min) Complex 10/27/2015 Appointment: Nurse Visit [...] have repeat treatment - one on left protestant and one on posterior scalp. 08/26/2015 Patient Education: Patient Medication Summary Completed 08/26/2015 Patient Education: Hypertension Completed 08/26/2015 Referral: Tariq Ramirez WPtel: [address] [place], [place] [phone] Referral Completed 08/05/2015 Visit Plan: Hypertension - [...] of efudex. 07/29/2015 Appointment: Virginie Isaac WPtel: [address] [place] [address] (15 min) Moderate 07/29/2015 Patient Education: Patient Medication Summary Completed 07/29/2015 Patient Education: Obesity Completed 07/29/2015 Patient Education: Hypertension Completed 07/29/2015 Care Plan: Referral Order SNOMED-CT : [id number] Pending 07/29/2015 Patient Education: Patient Medication Summary [...] Care Plan: COMPLETE CBC AUTOMATED LOINC : 63586-4 Ordered 04/29/2015 Care Plan: MICROALBUMIN QUANTITATIVE LOINC : 80155-1 Ordered 04/29/2015 Appointment: (15 min) Moderate 03/31/2015 Appointment: [phone] [facility] (15 min) Moderate 01/22/2015 Visit Plan: [...] office visit. 10/23/2014 Appointment: Virginie Isaac WPtel: [address] [place], [place] [address] [place] ([place]) New Patient 10/23/2014 Patient Education: Patient Medication Summary Completed 10/23/2014 Patient Education: Hypertension Completed 10/23/2014 Referral: Tariq Ramirez WPtel: [address] [place], [place] [address] Referral Appointment Requested Instructions Comment . Diabetes [...] recommended that he needs to see a Drawing In Machine Tender, but Suleman is not interested at this time. He has agreed to have repeat bmp in one month off of the hctz and to start on renal diet. Prostate cancer - continue with plans to be seen by Dr. Modi at the cancer center. . Hypertension -at home, blood pressure is [...] readings are starting to become less controlled. . Medicare Exam - today we discussed [...] pt is not interested in seeing a Drawing In Machine Tender as has been recommended to patient. use [...] on posterior scalp and one on left protestant. . Hypertension - uncontrolled - the patient's [...] have repeat treatment - one on left protestant and one on posterior scalp. . Medicare [...] pt is not interested in seeing a Drawing In Machine Tender as has been recommended to patient. Elevated [...]
[2018-07-31] MEDS ORDERED: NS IV 1000 ML 1,000 ML IV ONE (01:05)
[2018-07-31] MEDS ORDERED: KETOROLAC 30 MG/ML VIAL IVP STA (01:05)
--- NOTE | 2018-07-31 01:12 | ED Abdominal Pain ---
General Stated Complaint: PAIN IN RIGHT SIDE Source of Information: Patient (PT IS SOMEWHAT LIMITED/DIFFICULT HISTORIAN), Family History of Present Illness Date Seen by Provider: Jul 31, 2018 Time Seen by Provider: 00:52 Initial Comments PT ARRIVES VIA POV WITH FAMILY PT C/O RIGHT SIDE ABDOMINAL PAIN SINCE 1600 TODAY PAIN IS CONSTANT, AND NOTHING WORSENS OR IMPROVES PAIN RATES PAIN A "10" BUT ALSO STATES "I CAN'T HANDLE PAIN, SO EVERYTHING'S A 10" HAS NOT TAKEN ANYTHING FOR PAIN C/O NAUSEA AND HAS VOMITED X 3-4 NO DIARRHEA OR CONSTIPATION TODAY, BUT HAS ISSUES WITH DIARRHEA/BOWEL INCONTINENCE DUE TO RADIATION TREATMENTS FOR PROSTATE CANCER--JUST FINISHED 45 TREATMENTS 2 WEEKS AGO PT STATES HE HAD A BM AT 0400 ON TUESDAY AM, THEN TOOK AN IMMODIUM BECAUSE HE WAS GOING TO BE IN [place] ALL DAY, AND HE DID NOT WANT TO HAVE DIARRHEA OR EPISODE OF INCONTINENCE NO CHANGE IN URINATION NO FEVER NO HISTORY OF GI PROBLEMS PCP: DR. VIGIL UROLOGY: DR. AVILEZ RADIATION ONCOLOGY: DR. BECERRA Allergies and Home Medications Allergies Coded Allergies: No Known Drug Allergies (Unverified , 03/09/18) Home Medications Bisoprolol Fumarate 5 Mg Tablet, 5 MG PO BID, (Reported) Finasteride 5 Mg Tablet, 5 MG PO DAILY, (Reported) Glimepiride 2 Mg Tablet, 1 MG PO BID, (Reported) take 1/2 of 2mg tab Losartan Potassium 100 Mg Tablet, 100 MG PO DAILY, (Reported) Simvastatin 20 Mg Tablet, 20 MG PO DAILY, (Reported) Tamsulosin HCl 0.4 Mg Cap.er.24h, 0.4 MG PO DAILY, (Reported) Review of Systems Review of Systems Constitutional: no symptoms reported Respiratory: No Symptoms Reported Cardiovascular: No Symptoms Reported Gastrointestinal: See HPI, Abdominal Pain, Diarrhea, Nausea, Vomiting Genitourinary: See HPI Musculoskeletal: no symptoms reported Skin: no symptoms reported Psychiatric/Neurological: Anxiety Endocrine: No Symptoms Reported Hematologic/Lymphatic: No Symptoms Reported Past Gqqenxs-Jdidhf-Wennip Hx Patient Social History Recent Foreign Travel: No Contact w/Someone Who Travel: No Recent Hopitalizations: No Immunizations Up To Date Tetanus Booster (TDap): Unknown PED Vaccines UTD: No Seasonal Allergies Seasonal Allergies: No Past Medical History Surgeries: Yes (UMBILICAL HERNIA; CYSTOSCOPY/PROSTATE BIOPSY; BILATERAL CATARACT SURGERY) Abdominal, Eye Surgery Respiratory: No Cardiac: Yes High Cholesterol, Hypertension Neurological: No Reproductive Disorders: No Sexually Transmitted Disease: No HIV/AIDS: No Genitourinary: Yes (PROSTATE CANCER DX 03/2018) Prostate Problems Gastrointestinal: Yes (UMBILICAL HERNIA REPAIR; POST RADIATION DIARRHEA/ INCONTINENCE) Musculoskeletal: Yes Arthritis Endocrine: Yes Diabetes, Non-Insulin dep HEENT: Yes (S/P BILATERAL CATARACT SURGERY) Cataract Loss of Vision: Bilateral Hearing Impairment: Denies Cancer: Yes Prostate, Skin Did You Recieve Any Treatments: Yes (PROSTATE CANCER DX 03/2018--S/P 45 RADIATION TREATMENTS COMPLETED 07/2018. NO SURGERY) What Type of Treatment Did You: Radiation Psychosocial: No Integumentary: No Blood Disorders: No Adverse Reaction/Blood Tranf: No (N/A) Physical Exam Vital Signs Vital Signs - First Documented 07/31/18 00:48 Temp 98.3 Pulse 57 Resp 18 B/P (MAP) 200/88 (125) Pulse Ox 98 O2 Delivery Room Air Capillary Refill : Height/Weight/BMI Height: 5'5.00" Weight: 173lbs. 0.0oz. 78.440314rm; 30.5 BMI Method: General Appearance: WD/WN, other (ANXIOUS) HEENT: other (POOR DENTITION) Respiratory: normal breath sounds, no respiratory distress, no accessory muscle use Cardiovascular: regular rate, rhythm, no murmur Extremities: normal inspection Neurologic/Psychiatric: nut sifter II-XII nml as tested, no motor/sensory deficits, alert, oriented x 3, other (ANXIOUS) Progress/Results/Core Measures Results/Orders Lab Results Laboratory Tests Test 07/31/18 01:01 07/31/18 02:15 Range/Units White Blood Count 14.9 H 4.3-11.0 10^3/uL Red Blood Count 5.01 4.35-5.85 10^6/uL Hemoglobin 16.2 13.3-17.7 G/DL Hematocrit 48 40-54 % Mean Corpuscular Volume 95 80-99 FL Mean Corpuscular Hemoglobin 32 25-34 PG Mean Corpuscular Hemoglobin Concent 34 32-36 G/DL Red Cell Distribution Width 12.6 10.0-14.5 % Platelet Count 371 130-400 10^3/uL Mean Platelet Volume 9.6 7.4-10.4 FL Neutrophils (%) (Auto) 87 H 42-75 % Lymphocytes (%) (Auto) 5 L 12-44 % Monocytes (%) (Auto) 8 0-12 % Eosinophils (%) (Auto) 0 0-10 % Basophils (%) (Auto) 0 0-10 % Neutrophils # (Auto) 12.9 H 1.8-7.8 X 10^3 Lymphocytes # (Auto) 0.8 L 1.0-4.0 X 10^3 Monocytes # (Auto) 1.1 H 0.0-1.0 X 10^3 Eosinophils # (Auto) 0.0 0.0-0.3 10^3/uL Basophils # (Auto) 0.0 0.0-0.1 10^3/uL Neutrophils % (Manual) 84 % Lymphocytes % (Manual) 4 % Monocytes % (Manual) 11 % Eosinophils % (Manual) 0 % Basophils % (Manual) 0 % Band Neutrophils 1 % Blood Morphology Comment NORMAL Sodium Level 138 135-145 MMOL/L Potassium Level 4.4 3.6-5.0 MMOL/L Chloride Level 107 98-107 MMOL/L Carbon Dioxide Level 16 L 21-32 MMOL/L Anion Gap 15 H 5-14 MMOL/L Blood Urea Nitrogen 26 H 7-18 MG/DL Creatinine 1.86 H 0.60-1.30 MG/DL Estimat Glomerular Filtration Rate 35 BUN/Creatinine Ratio 14 Glucose Level 222 H 70-105 MG/DL Calcium Level 10.2 H 8.5-10.1 MG/DL Corrected Calcium 9.9 8.5-10.1 MG/DL Total Bilirubin 0.6 0.1-1.0 MG/DL Aspartate Amino Transf (AST/SGOT) 18 5-34 U/L Alanine Aminotransferase (ALT/SGPT) 20 0-55 U/L Alkaline Phosphatase 74 40-136 U/L Total Protein 7.9 6.4-8.2 GM/DL Albumin 4.4 3.2-4.5 GM/DL Amylase Level 81 25-125 U/L Lipase 29 8-78 U/L Urine Color YELLOW Urine Clarity VERY CLOUDY H Urine pH 5 5-9 Urine Specific [place] 1.025 H 1.016-1.022 Urine Protein 2+ H NEGATIVE Urine Glucose (UA) 3+ H NEGATIVE Urine Ketones 1+ H NEGATIVE Urine Nitrite NEGATIVE NEGATIVE Urine Bilirubin NEGATIVE NEGATIVE Urine Urobilinogen NORMAL NORMAL MG/DL Urine Leukocyte Esterase 1+ H NEGATIVE Urine RBC (Auto) 5+ H NEGATIVE Urine RBC >100 H /HPF Urine WBC 0-2 /HPF Urine Squamous Epithelial Cells 0-2 /HPF Urine Crystals NONE /LPF Urine Bacteria TRACE /HPF Urine Casts NONE /LPF Urine Mucus SMALL H /LPF Urine Culture Indicated NO My Orders Orders - MAURY FREEMAN DO Ct Abd/Pelvis Wo(Kidney Stone) (07/31/18 00:51) Amylase (07/31/18 00:51) Cbc With Automated Diff (07/31/18 00:51) Comprehensive Metabolic Panel (07/31/18 00:51) Lipase (07/31/18 00:51) Urinalysis (07/31/18 00:51) Acute Abd Series (07/31/18 00:51) Ed Iv/Invasive Line Start (07/31/18 00:51) Monitor-Rhythm Ecg Trace Only (07/31/18 00:51) Ed Iv/Invasive Line Start (07/31/18 01:05) Ns Iv 1000 Ml (Sodium Chloride 0.9%) (07/31/18 01:05) Ondansetron Injection (Zofran Injectio (07/31/18 01:15) Ketorolac Injection (Toradol Injection) (07/31/18 01:05) Manual Differential (07/31/18 01:01) Ceftriaxone For Iv Use (Rocephin For I (07/31/18 02:45) Rx-Hydrocodone/Apap 5-325 Mg (Rx-Vicodin (07/31/18 03:15) Rx-Ondansetron Po (Rx-Zofran Po) (07/31/18 03:08) Medications Given in ED Current Medications Medications Dose Ordered Sig/Trisha Route Start Time Stop Time Status Last Admin Dose Admin Ondansetron HCl 4 mg ONCE ONCE IVP 07/31/18 01:15 07/31/18 01:16 DC 07/31/18 01:26 4 MG Sodium Chloride 1,000 ml @ 0 mls/hr Q0M ONCE IV 07/31/18 01:05 07/31/18 01:07 DC 07/31/18 01:26 0 MLS/HR Vital Signs/I&O 07/31/18 00:48 Temp 98.3 Pulse 57 Resp 18 B/P (MAP) 200/88 (125) Pulse Ox 98 O2 Delivery Room Air Departure Impression Primary Impression: Right distal ureteral calculus Additional Impressions: SUSPECTED RUPTURE OF RIGHT RENAL CALYX HX OF PROSTATE CANCER Urinary tract infection Chronic renal insufficiency Disposition: HOME, SELF-CARE Condition: Improved Departure-Patient Inst. Referrals: RANDI VIGIL MD (PCP/Family) Primary Care Physician JAZMINE AVILEZ MD Patient Instructions: How to Strain Your Urine, Kidney Stones (DC), Urinary Tract Infection, Adult (DC) Add. Discharge Instructions: LOTS OF CLEAR LIQUIDS--INCREASE YOUR WATER INTAKE STRAIN ALL URINE--RETURN ANY STONES TO DR. AVILEZ'S OFFICE TAKE YOUR REGULAR MEDICATIONS PRESCRIBED FOLLOW UP WITH DR. AVILEZ IN 1-2 DAYS FOR FURTHER CARE RETURN TO ER IF WORSE Scripts Hydrocodone/Ibuprofen (Hydrocodone-Ibuprofen 7.5-200) 1 Each Tablet 1-2 EACH PO Q4H for Pain MDD 6, #20 TAB Prov: MAURY FREEMAN DO 07/31/18 Ondansetron (Ondansetron Odt) 8 Mg Tab.rapdis 8 MG PO Q6H for Nausea/Vomiting, #10 TAB Prov: MAURY FREEMAN DO 07/31/18 Cefdinir (Cefdinir) 300 Mg Capsule 300 MG PO BID for FOR INFECTION, #20 CAP Prov: MAURY FREEMAN DO 07/31/18 MAURY FREEMAN DO Jul 31, 2018 01:12
[2018-07-31 01:13] LABS: BASOPHILS % (AUTO) 0 % (0-10); EOSINOPHILS % (AUTO) 0 % (0-10); HEMATOCRIT 48 % (40-54); HEMOGLOBIN 16.2 G/DL (13.3-17.7); LYMPHOCYTES # (AUTO) 0.8 X 10^3 (1.0-4.0); LYMPHOCYTES % (AUTO) 5 % (12-44); MEAN CORPUSCULAR HEMOGLOBIN 32 PG (25-34); MEAN CORPUSCULAR HGB CONC 34 G/DL (32-36); MEAN CORPUSCULAR VOLUME 95 FL (80-99); MEAN PLATELET VOLUME 9.6 FL (7.4-10.4); MONOCYTES # (AUTO) 1.1 X 10^3 (0.0-1.0); MONOCYTES % (AUTO) 8 % (0-12); NEUTROPHILS # (AUTO) 12.9 X 10^3 (1.8-7.8); NEUTROPHILS % (AUTO) 87 % (42-75); PLATELET COUNT 371 10^3/uL (130-400); RED CELL DISTRIBUTION WIDTH 12.6 % (10.0-14.5); WHITE BLOOD COUNT 14.9 10^3/uL (4.3-11.0)
[2018-07-31] MEDS ORDERED: ONDANSETRON 4 MG/2 ML (SDV) Z0FRAN IVP ONE (01:15)
--- OUTSIDE RECORDS SUMMARY | 2018-07-31 01:17 | XMS REPORT | Continuity of Care Document ---
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 05/10/2017 GRACE KNIGHT DOTT D Ot E11.9 TYPE 2 DIABETES MELLITUS WITHOUT COMPLIC 05/10/2017 GRACE KNIGHT DOTT D Ot I10 ESSENTIAL (PRIMARY) HYPERTENSION 05/10/2017 GRACE KNIGHT DOTT D Ot 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 05/10/2017 GRACE KNIGHT DOTT D Ot Z79.899 OTHER CARE HOME (CURRENT) DRUG THERAPY 05/14/2017 ANTONIA DO SACHI D Ot C44.629 SQUAMOUS CELL CARCINOMA SKIN/ LEFT UPPER 05/14/2017 GRACE KNIGHT DOTT D Ot E11.9 TYPE 2 DIABETES MELLITUS WITHOUT COMPLIC 05/14/2017 KNIGHT DO, SACHI D Ot I10 ESSENTIAL (PRIMARY) HYPERTENSION 05/14/2017 ANTONIA HENRY, SACHI D Ot 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 05/14/2017 SACHI KNIGHT DO D Ot Z79.899 OTHER MILITARY PERSONNEL SPECIALIST (CURRENT) DRUG THERAPY 05/15/2017 GRACE KNIGHT DOGIOVANNI Benedict Ot L98.9 DISORDER OF THE SKIN AND SUBCUTANEOUS TI 05/15/2017 KNIGHT DOSACHI Ot Z01.818 ENCOUNTER FOR OTHER PREPROCEDURAL EXAMIN 05/21/2017 KNIGHT SACHI Ot C44.629 SQUAMOUS CELL CARCINOMA SKIN/ LEFT UPPER 05/21/2017 SACHI KNIGHT DO Ot E11.9 TYPE 2 DIABETES MELLITUS WITHOUT COMPLIC 05/21/2017 SACHI KNIGHT DO Ot I10 ESSENTIAL (PRIMARY) HYPERTENSION 05/21/2017 SACHI KNIGHT DO Ot 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 05/21/2017 SACHI KNIGHT DO Ot Z79.899 OTHER CARE HOME (CURRENT) DRUG THERAPY 07/21/2017 RAGHAV SHEEHAN, JAZMINE Moreland Ot 562.10 DIVERTICULOSIS COLON (W/O MENT OF HEMORR 07/21/2017 RAGHAV SHEEHAN, JAZMINE Moreland Ot 599.70 HEMATURIA, UNSPECIFIED 07/21/2017 RANDI VIGIL [...] BACTER 08/03/2017 JAZMINE AVILEZ MD Ot Z79.84 CARE HOME (CURRENT) USE OF ORAL HYPOGLYC 08/10/2017 JAZMINE [...] BACTER 08/10/2017 JAZMINE AVILEZ MD Ot Z79.84 CARE HOME (CURRENT) USE OF ORAL HYPOGLYC 08/15/2017 JAZMINE AVILEZ MD Ot 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 O 09/22/2017 JAZMINE AVILEZ MD Ot 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 [...] AVILEZ MD Ot 599.70 HEMATURIA, UNSPECIFIED 02/07/2018 YARITZA MD, RANDI A Ot E11.65 TYPE 2 DIABETES MELLITUS WITH HYPERGLYCE 02/07/2018 RANDI VIGIL MD Ot E66.9 OBESITY, UNSPECIFIED 02/07/2018 RANDI VIGIL MD Ot I10 ESSENTIAL (PRIMARY) HYPERTENSION 02/07/2018 JAZMINE AVILEZ MD Ot 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 [...] HYPERTENSION 03/14/2018 JAZMINE AVILEZ MD Ot Z79.84 MILITARY PERSONNEL SPECIALIST (CURRENT) USE OF ORAL HYPOGLYC 03/14/2018 JAZMINE AVILEZ MD Ot Z79.899 OTHER CARE HOME (CURRENT) DRUG THERAPY 03/17/2018 JAZMINE AVILEZ MD Ot C61 MALIGNANT NEOPLASM OF PROSTATE 03/17/2018 JAZMINE AVILEZ MD Ot E11.9 TYPE 2 DIABETES MELLITUS WITHOUT COMPLIC 03/17/2018 JAZMINE AVILEZ MD Ot I10 ESSENTIAL (PRIMARY) HYPERTENSION 03/17/2018 JAZMINE AVILEZ MD Ot Z79.84 CARE HOME (CURRENT) USE OF ORAL HYPOGLYC 03/17/2018 JAZMINE AVILEZ MD, Ot Z79.899 OTHER CARE HOME (CURRENT) DRUG THERAPY 03/20/2018 JAZMINE AVILEZ MD Ot C61 MALIGNANT NEOPLASM OF PROSTATE 03/20/2018 JAZMINE AVILEZ MD Ot E11.9 TYPE 2 DIABETES MELLITUS WITHOUT COMPLIC 03/20/2018 JAZMINE AVILEZ MD Ot I10 ESSENTIAL (PRIMARY) HYPERTENSION 03/20/2018 JAZMINE AVILEZ MD Ot Z79.84 MILITARY PERSONNEL SPECIALIST (CURRENT) USE OF ORAL HYPOGLYC 03/20/2018 JAZMINE AVILEZ MD Ot Z79.899 OTHER MILITARY PERSONNEL SPECIALIST (CURRENT) DRUG THERAPY 03/31/2018 GREGORY BECERRA MD Ot C61 MALIGNANT NEOPLASM OF PROSTATE 03/31/2018 GREGORY BECERRA MD Ot E11.9 TYPE 2 DIABETES MELLITUS WITHOUT COMPLIC 03/31/2018 GREGORY BECERRA MD Ot I10 ESSENTIAL (PRIMARY) HYPERTENSION 03/31/2018 GREGORY BECERRA MD Ot N40.0 BENIGN PROSTATIC HYPERPLASIA WITHOUT LOW 03/31/2018 GREGORY BECERRA MD Ot Z79.84 CARE HOME (CURRENT) USE OF ORAL HYPOGLYC 04/13/2018 GREGORY BECERRA MD Ot C61 MALIGNANT NEOPLASM OF PROSTATE 04/13/2018 GREGORY BECERRA MD Ot E11.9 TYPE 2 DIABETES MELLITUS WITHOUT COMPLIC 04/13/2018 GREGORY BECERRA MD Ot I10 ESSENTIAL (PRIMARY) HYPERTENSION 04/13/2018 GREGORY BECERRA MD Ot N40.0 BENIGN PROSTATIC HYPERPLASIA WITHOUT LOW 04/13/2018 GREGORY BECERRA MD Ot Z79.84 MILITARY PERSONNEL SPECIALIST (CURRENT) USE OF ORAL HYPOGLYC 05/02/2018 KARYNA [...] HYPERTENSION 05/05/2018 KARYNA RAMIREZ MD Ot Z79.84 CARE HOME (CURRENT) USE OF ORAL HYPOGLYC 05/05/2018 KARYNA RAMIREZ MD, Ot Z79.899 OTHER CARE HOME (CURRENT) DRUG THERAPY 05/08/2018 GREGORY BECERRA MD Ot C61 MALIGNANT NEOPLASM OF PROSTATE 05/08/2018 GREGORY BECERRA MD Ot E11.9 TYPE 2 DIABETES MELLITUS WITHOUT COMPLIC 05/08/2018 GREGORY BECERRA MD Ot I10 ESSENTIAL (PRIMARY) HYPERTENSION 05/08/2018 GREGORY BECERRA MD Ot N40.0 BENIGN PROSTATIC HYPERPLASIA WITHOUT LOW 05/08/2018 GREGORY BECERRA MD Ot Z79.84 CARE HOME (CURRENT) USE OF ORAL HYPOGLYC 05/08/2018 KARYNA RAMIREZ MD Ot E11.36 TYPE 2 DIABETES MELLITUS WITH DIABETIC C 05/08/2018 KARYNA RAMIREZ MD Ot E78.00 PURE HYPERCHOLESTEROLEMIA, UNSPECIFIED 05/08/2018 KARYNA RAMIREZ MD Ot H25.11 AGE-RELATED NUCLEAR CATARACT, RIGHT EYE 05/08/2018 KARYNA RAMIREZ MD Ot I10 ESSENTIAL (PRIMARY) HYPERTENSION 05/08/2018 KARYNA RAMIREZ MD Ot Z79.84 CARE HOME (CURRENT) USE OF ORAL HYPOGLYC 05/08/2018 KARYNA RAMIREZ MD Ot Z79.899 OTHER MILITARY PERSONNEL SPECIALIST (CURRENT) DRUG THERAPY 05/09/2018 GREGORY BECERRA MD Ot C61 MALIGNANT NEOPLASM OF PROSTATE 05/09/2018 GREGORY BECERRA MD Ot E11.9 TYPE 2 DIABETES MELLITUS WITHOUT COMPLIC 05/09/2018 GREGORY BECERRA MD Ot I10 ESSENTIAL (PRIMARY) HYPERTENSION 05/09/2018 GREGORY BECERRA MD Ot N40.0 BENIGN PROSTATIC HYPERPLASIA WITHOUT LOW 05/09/2018 GREGORY BECERRA MD Ot Z51.0 ENCOUNTER FOR ANTINEOPLASTIC RADIATION T 05/09/2018 GREGORY BECERRA MD Ot Z79.84 MILITARY PERSONNEL SPECIALIST (CURRENT) USE OF ORAL HYPOGLYC 05/10/2018 GREGORY BECERRA MD Ot C61 MALIGNANT NEOPLASM OF PROSTATE 05/10/2018 GREGORY BECERRA MD Ot E11.9 TYPE 2 DIABETES MELLITUS WITHOUT COMPLIC 05/10/2018 GREGORY BECERRA MD Ot I10 ESSENTIAL (PRIMARY) HYPERTENSION 05/10/2018 GREGORY BECERRA MD Ot N40.0 BENIGN PROSTATIC HYPERPLASIA WITHOUT LOW 05/10/2018 GREGORY BECERRA MD Ot Z79.84 CARE HOME (CURRENT) USE OF ORAL HYPOGLYC 05/11/2018 KARYNA RAMIREZ MD Ot E11.36 TYPE 2 DIABETES MELLITUS WITH DIABETIC C 05/11/2018 KARYNA RAMIREZ MD Ot E78.00 PURE HYPERCHOLESTEROLEMIA, UNSPECIFIED 05/11/2018 KARYNA RAMIREZ MD Ot H25.11 AGE-RELATED NUCLEAR CATARACT, RIGHT EYE 05/11/2018 KARYNA RAMIREZ MD Ot I10 ESSENTIAL (PRIMARY) HYPERTENSION 05/11/2018 KARYNA RAMIREZ MD Ot Z79.84 CARE HOME (CURRENT) USE OF ORAL HYPOGLYC 05/11/2018 KARYNA RAMIREZ MD Ot Z79.899 OTHER CARE HOME (CURRENT) DRUG THERAPY 05/15/2018 KARYNA RAMIREZ MD L Ot Z01.818 ENCOUNTER FOR OTHER PREPROCEDURAL EXAMIN 06/06/2018 KARYNA RAMIREZ MD L Ot Z01.818 ENCOUNTER FOR OTHER PREPROCEDURAL EXAMIN 06/07/2018 KARYNA RAMIREZ MD L Ot Z01.818 ENCOUNTER FOR OTHER PREPROCEDURAL EXAMIN 06/07/2018 KARYNA RAMIREZ MD L Ot Z01.818 ENCOUNTER FOR OTHER PREPROCEDURAL EXAMIN 06/08/2018 KARYNA RAMIREZ MD L Ot Z01.818 ENCOUNTER FOR OTHER PREPROCEDURAL EXAMIN 06/09/2018 KARYNA RAMIREZ MD Ot E11.36 TYPE 2 DIABETES MELLITUS WITH DIABETIC C 06/09/2018 KARYNA RAMIREZ MD Ot E78.00 PURE HYPERCHOLESTEROLEMIA, UNSPECIFIED 06/09/2018 KARYNA RAMIREZ MD Ot H25.12 AGE-RELATED NUCLEAR CATARACT, LEFT EYE 06/09/2018 KARYNA RAMIREZ MD Ot H57.03 MIOSIS 06/09/2018 KARYNA RAMIREZ MD Ot I10 ESSENTIAL (PRIMARY) HYPERTENSION 06/09/2018 KARYNA RAMIREZ MD Ot Z79.84 MILITARY PERSONNEL SPECIALIST (CURRENT) USE OF ORAL HYPOGLYC 06/09/2018 KARYNA RAMIREZ MD Ot Z79.899 OTHER MILITARY PERSONNEL SPECIALIST (CURRENT) DRUG THERAPY 06/13/2018 KARYNA RAMIREZ MD Ot E11.36 TYPE 2 DIABETES MELLITUS WITH DIABETIC C 06/13/2018 ANKARYNA BANGURA MD, Ot E78.00 PURE HYPERCHOLESTEROLEMIA, UNSPECIFIED 06/13/2018 KARYNA RAMIREZ MD, Ot H25.12 AGE-RELATED NUCLEAR CATARACT, LEFT EYE 06/13/2018 KARYNA RAMIREZ MD, Ot H57.03 MIOSIS 06/13/2018 KARYNA RAMIREZ MD, Ot I10 ESSENTIAL (PRIMARY) HYPERTENSION 06/13/2018 KARYNA RAMIREZ MD Ot Z79.84 CARE HOME (CURRENT) USE OF ORAL HYPOGLYC 06/13/2018 KARYNA RAMIREZ MD, Ot Z79.899 OTHER MILITARY PERSONNEL SPECIALIST (CURRENT) DRUG THERAPY 06/26/2018 GREGORY BECERRA MD, Ot C61 MALIGNANT NEOPLASM OF PROSTATE 06/26/2018 GREGORY BECERRA MD, Ot E11.9 TYPE 2 DIABETES MELLITUS WITHOUT COMPLIC 06/26/2018 GREGORY BECERRA MD, Ot I10 ESSENTIAL (PRIMARY) HYPERTENSION 06/26/2018 GREGORY BECERRA MD, Ot N40.0 BENIGN PROSTATIC HYPERPLASIA WITHOUT LOW 06/26/2018 GREGORY BECERRA MD, Ot Z79.84 CARE HOME (CURRENT) USE OF ORAL HYPOGLYC Procedures There is no data. Results Test [...] measurement by glucometer (mass/volume) 101 mg/dL 70-110 [id number] - 08/12/17 11:03 Serum or plasma urea [...] Status Pt. Type Provider Facility Loc./Unit Complaint [id number] 06/29/2018 10:52:00 06/29/2018 23:59:59 CLS Outpatient GREGORY BECERRA MD Via [facility] ONC [id number] 06/09/2018 09:57:00 06/09/2018 11:20:00 DIS Outpatient KARYNA RAMIREZ MD [facility] CATARACT LEFT EYE [id number] 06/05/2018 06:18:00 06/07/2018 14:24:00 DIS Outpatient KARYNA RAMIREZ MD [facility] PREOP LEFT CATARACT [id number] 05/19/2018 11:30:00 05/19/2018 23:59:59 CLS Preadmit KARYNA RAMIREZ MD [facility] CATARACT LEFT EYE [id number] 05/12/2018 06:23:00 05/12/2018 23:59:59 CLS Outpatient KARYNA RAMIREZ MD [facility] PREOP LEFT CATARACT [id number] 05/08/2018 10:57:00 05/08/2018 00:01:00 DIS Outpatient GREGORY BECERRA MD [facility] ONC [id number] 05/05/2018 10:36:00 05/05/2018 12:07:00 DIS Outpatient KARYNA RAMIREZ MD [facility] RIGHT CATARACT [id number] 05/02/2018 06:25:00 05/02/2018 15:24:00 DIS Outpatient KARYNA RAMIREZ MD [facility] PREOP RIGHT CATARACT [id number] 03/14/2018 05:58:00 03/14/2018 10:25:00 DIS Outpatient JAZMINE AVILEZ MD [facility] PROSTATE CANCER [id number] 03/09/2018 05:59:00 03/09/2018 13:00:00 DIS Outpatient JAZMINE AVILEZ MD [facility] PREOP PROSTATE CANCER [id number] 08/12/2017 10:41:00 08/12/2017 23:59:59 CLS Outpatient JAZMINE AVILEZ MD [facility] RAD CA OF PROSTATE [id number] 08/08/2017 10:58:00 08/08/2017 23:59:59 CLS Preadmit JAZMINE AVILEZ MD [facility] RAD CA OF PROSTATE [id number] 08/03/2017 06:00:00 08/03/2017 09:25:00 DIS Outpatient JAZMINE AVILEZ MD [facility] SD BPH, ELEVATED PSA [id number] 07/28/2017 12:50:00 07/28/2017 13:04:00 DIS Outpatient JAZMINE AVILEZ MD [facility] PREOP CYSTO, PROSTATE BIOPSY [id number] 05/10/2017 13:05:00 05/10/2017 16:25:00 [facility] [id number] 05/09/2017 05:50:00 05/09/2017 10:56:00 DIS Outpatient SACHI KNIGHT DO [facility] PREOP SKIN LESION LEFT ARM X2 [id number] 04/25/2017 15:00:00 04/25/2017 23:59:59 CLS Preadmit RANDI VIGIL MD [facility] DSME TYPE 2 DIABETES [id number] 01/24/2017 14:42:00 04/24/2017 00:01:00 DIS Outpatient RANDI VIGIL MD [facility] DSME TYPE 2 DIABETES [id number] 02/06/2013 14:55:00 02/06/2013 23:59:59 CLS Outpatient JAZMINE AVILEZ MD [facility] RAD HEMATURIA [id number] 02/02/2017 14:53:08 02/02/2017 23:59:59 CLS Outpatient
[2018-07-31 01:32] LABS: ALBUMIN 4.4 GM/DL (3.2-4.5); BILIRUBIN,TOTAL 0.6 MG/DL (0.1-1.0); CALCIUM 10.2 MG/DL (8.5-10.1); CREATININE SERUM 1.86 MG/DL (0.60-1.30); POTASSIUM 4.4 MMOL/L (3.6-5.0); TOTAL PROTEIN 7.9 GM/DL (6.4-8.2)
[2018-07-31 01:34] LABS: BAND NEUTROPHILS 1 %; BASOPHILS % (MANUAL) 0 %; EOSINOPHILS % (MANUAL) 0 %; LYMPHOCYTES % (MANUAL) 4 %; MONOCYTES % (MANUAL) 11 %; NEUTROPHILS % (MANUAL) 84 %; RBC MORPH NORMAL
[2018-07-31 02:23] LABS: BILIRUBIN,URINE NEGATIVE (NEGATIVE); CLARITY,URINE VERY CLOUDY; COLOR,URINE YELLOW; GLUCOSE, URINE (UA) 3+ (NEGATIVE); KETONES,URINE 1+ (NEGATIVE); LEUKOCYTE ESTERASE ,URINE 1+ (NEGATIVE); NITRITE,URINE NEGATIVE (NEGATIVE); PH,URINE 5 (5-9); PROTEIN,URINE 2+ (NEGATIVE); UROBILINOGEN,URINE NORMAL (NORMAL)
[2018-07-31 02:32] LABS: BACTERIA,URINE TRACE /HPF; RBC,URINE >100 /HPF; SQUAMOUS EPITHELIAL CELL,UR 0-2 /HPF; WBC,URINE 0-2 /HPF
[2018-07-31] MEDS ORDERED: cefTRIAXone FOR IV USE 1,000 MG in WATER (STERILE) FOR INJECTION 10 ML IV ONE (02:45)
[2018-07-31] MEDS ORDERED: RX-ONDANSETRON 4 MG ODT (ZOFRAN) PPK #4 PO STA (03:08)
[2018-07-31] MEDS ORDERED: CEFD300C3 PO (03:14)
[2018-07-31] MEDS ORDERED: ONDA8TAB13 PO (03:14)
[2018-07-31] MEDS ORDERED: HYDR-87 PO (03:14)
[2018-07-31] MEDS ORDERED: RX-HYDROCODONE/APAP 5/325 MG #4 TAB PK PO PRN (03:15)
[2018-07-31 03:31] VITALS: BP 187/73
--- NOTE | 2018-07-31 06:18 | Diagnostic Imaging Report ---
PROCEDURE: CT urinary tract, rule out kidney stone. TECHNIQUE: Multiple contiguous axial images were obtained through the abdomen and pelvis without the use of intravenous contrast. Auto Exposure Controls were utilized during the CT exam to meet ALARA standards for radiation dose reduction. INDICATION: Abdominal pain. COMPARISON: CT abdomen and pelvis from 08/12/2017. FINDINGS: Evaluation of the abdominal viscera is mildly limited without contrast. Lower chest: A few scattered tiny bibasilar pulmonary nodules are stable measuring up to 5 mm. No pericardial or pleural effusion. Peritoneum: No free intraperitoneal air or fluid. Liver and biliary system: Unenhanced liver is normal. The gallbladder is normal. No biliary duct dilation. Spleen and Pancreas: Spleen is normal. Unenhanced pancreas is grossly normal. Adrenals: Normal. tract: There is a 4 mm partially obstructing stone at the right UVJ. This results in moderate right hydronephrosis with perinephric stranding that is most likely due to calyceal rupture. [id number]-rb-[id number] right hydroureter is also present. No left renal or ureteral stones. Urinary bladder is normal in size. Prostate is mildly enlarged with radiation seeds present. GI tract: Stomach is decompressed. No bowel obstruction. No pericolonic inflammatory changes. Normal appendix. Sigmoid and descending colon diverticulosis without diverticulitis. Vasculature and Lymph nodes: Normal caliber aorta has moderate atherosclerotic plaquing. No abdominal or pelvic lymphadenopathy. Musculoskeletal: No concerning osseous lesion. IMPRESSION: 1. Moderate right hydronephrosis secondary to a 4 mm partially obstructing stone at the right UVJ. 2. Findings are in agreement with the preliminary report. Dictated by: Dictated on workstation # [id number]
--- NOTE | 2018-07-31 07:19 | Diagnostic Imaging Report ---
ACUTE ABD SERIES Indication: Abdominal pain Comparison: CT abdomen and pelvis performed same day. Findings: Lungs are clear. No pleural effusion or pneumothorax. Normal cardiomediastinal silhouette. No free intraperitoneal air. Nonobstructive bowel gas pattern. Fiducial markers are present in the prostate. No abnormal soft tissue mineralizations. Prior herniorrhaphy. IMPRESSION: 1. Nonobstructive bowel gas pattern. 2. Please see CT report for details of the right-sided hydronephrosis. Dictated by: Dictated on workstation # [id number]
== END 2018-07-31 03:31 | disposition home or self-care (01) ==
LOC: EDUNIT# 00:44 → ER 00:46
DX: N13.6 Pyonephrosis (principal); E11.22 Type 2 diabetes mellitus with diabetic chronic kidney disease; I12.9 Hypertensive chronic kidney disease with stage 1 through stage 4 chronic kidney disease, or unspecified chronic kidney disease; N18.9 Chronic kidney disease, unspecified; E78.00 Pure hypercholesterolemia, unspecified; Z85.828 Personal history of other malignant neoplasm of skin; Z87.19 Personal history of other diseases of the digestive system; Z85.46 Personal history of malignant neoplasm of prostate; Z92.21 Personal history of antineoplastic chemotherapy; Z79.4 Long term (current) use of insulin; Z98.890 Other specified postprocedural states
CPT/HCPCS: 36415; 74022; 74176; 80053; 81000; 82150; 83690; 85007; 85027; 93041

== ENCOUNTER → 2018-08-01 | Outpatient (CLI) | payer MEDICARE ==
[~2018-08-01] MED LIST changes: +CEFD300C3 PO; +HYDR-87 PO; +ONDA8TAB13 PO
--- NOTE | 2018-08-01 12:29 | Diagnostic Imaging Report ---
INDICATION: History of UVJ calculus. COMPARISON: 07/31/2018 FINDINGS: Two supine radiographic views of the abdomen were obtained. Right-sided pelvic phlebolith is again identified. No other definite abnormal extraosseous calcifications are seen. Patient's known right nonobstructive renal calculus is not well visualized and may be obscured by overlying bowel gas. No unexpected radiopaque foreign bodies are identified. Small bowel loops are nondistended. There is no large collection of free intraperitoneal air. IMPRESSION: 1. No unexpected extraosseous calcifications are seen on today's study. 2. Nonobstructive small bowel gas pattern. Dictated by: Dictated on workstation # [id number]
== END ==
LOC: RAD 12:04
PROVIDERS: ATTEND Urology
DX: N20.1 Calculus of ureter (principal)
CPT/HCPCS: 74018

== ENCOUNTER 2018-10-25 15:27 | Outpatient (RCR) | payer MEDICARE ==
[2019-01-04] MEDS ORDERED: TAMS0.4C98 PO (13:27)
[2019-01-10] MEDS ORDERED: SULF1TAB35 PO (09:20)
[2019-01-10] MEDS ORDERED: PHEN-640 PO (09:20)
== END 2019-01-23 | disposition home or self-care (01) ==
LOC: ONC 15:27
PROVIDERS: ATTEND Radiology Radiation Oncology
DX: C61 Malignant neoplasm of prostate (principal); I10 Essential (primary) hypertension; E11.9 Type 2 diabetes mellitus without complications; Z79.84 Long term (current) use of oral hypoglycemic drugs
CPT/HCPCS: 99213

== ENCOUNTER → 2018-11-17 | Outpatient (CLI) | payer MEDICARE ==
--- NOTE | 2018-11-17 17:45 | Diagnostic Imaging Report ---
PROCEDURE: US Renal Bilateral. INDICATION: Chronic renal disease. TECHNIQUE: Multiple real-time grayscale sonographic images were obtained of the kidneys. COMPARISON: CT of 07/31/2018. FINDINGS: RIGHT KIDNEY: 11.1 x 6.6 x 5.9 cm. LEFT KIDNEY: 11.2 x 5.8 x 4.7 cm. There is at least moderate-severity right-sided hydronephrosis with some thinning and lobulation about the renal parenchyma. The left collecting system appearing unremarkable. Left renal parenchyma appearing unremarkable. URINARY BLADDER: There is somewhat lobulated appearance about the urinary bladder. There is visualization of the left jet only. The right ureteral jet is not visualized. IMPRESSION: 1. At least moderate-severity right-sided hydronephrosis with some thinning and lobulated appearance about the right renal parenchyma. Severity of obstruction is likely relatively stable from prior study, perhaps slightly increased. 2. Nonvisualization of the right ureter jet below the urinary bladder. Possibility of distal ureteral obstruction is questioned. If further assessment is desired, repeat CT imaging would be recommended. Dictated by: Dictated on workstation # [id number]
== END ==
LOC: RAD 14:53
PROVIDERS: ATTEND Internal Medicine Nephrology
DX: N13.30 Unspecified hydronephrosis (principal); N18.4 Chronic kidney disease, stage 4 (severe); C61 Malignant neoplasm of prostate; E78.5 Hyperlipidemia, unspecified
CPT/HCPCS: 76770

== ENCOUNTER → 2018-12-07 | Outpatient (CLI) | payer MEDICARE ==
--- NOTE | 2018-12-07 16:10 | Diagnostic Imaging Report ---
PROCEDURE: CT abdomen and pelvis without contrast. TECHNIQUE: Multiple contiguous axial images were obtained through the abdomen and pelvis without the use of intravenous contrast. Auto Exposure Controls were utilized during the CT exam to meet ALARA standards for radiation dose reduction. INDICATION: Hydronephrosis. COMPARISON: Correlation is made with prior CT from 07/31/2018. FINDINGS: The lung bases are clear. The liver is unremarkable. The gallbladder is unremarkable. No biliary ductal dilatation is seen. The pancreas and spleen are unremarkable. No adrenal mass is identified. Left kidney is unremarkable for calculi or hydronephrosis. The previous CT did show a calculus located in the right kidney. This calculus appears to have passed distally into the right ureter just above the UVJ measuring approximately 6 mm x 9 mm in size. This is producing moderate hydroureteronephrosis. No bladder calculi are seen. Prostate is enlarged and contains radiation seeds. Bowel loops are normal caliber. There is diverticulosis of the sigmoid but no evidence of acute diverticulitis. There is no ascites. Bony structures show multilevel lower lumbar facet arthropathy. IMPRESSION: 1. 6 mm x 9 mm distal right ureteric calculus producing moderate hydroureteronephrosis. 2. Uncomplicated sigmoid diverticulosis. Dictated by: Dictated on workstation # [id number]
== END ==
LOC: RAD 14:59
PROVIDERS: ATTEND Internal Medicine Nephrology
DX: N13.2 Hydronephrosis with renal and ureteral calculous obstruction (principal); K57.30 Diverticulosis of large intestine without perforation or abscess without bleeding
CPT/HCPCS: 74176

== ENCOUNTER → 2018-12-19 | Outpatient (CLI) | payer MEDICARE ==
[2018-12-19 14:14] LABS: BILIRUBIN,DIRECT 0.3 MG/DL (0.0-0.3); BILIRUBIN,INDIRECT 0.4 MG/DL; BILIRUBIN,TOTAL 0.7 MG/DL (0.1-1.0); TOTAL PROTEIN 7.1 GM/DL (6.4-8.2)
== END ==
LOC: LAB 13:33
PROVIDERS: ATTEND Internal Medicine Nephrology
DX: N18.4 Chronic kidney disease, stage 4 (severe) (principal)
CPT/HCPCS: 36415; 80076

== ENCOUNTER → 2018-12-27 | Outpatient (CLI) | payer MEDICARE ==
--- NOTE | 2018-12-27 18:34 | Diagnostic Imaging Report ---
Supine abdomen at 0425 hours. INDICATION: Ureteral stone. Two supine views of the abdomen were obtained. The previous CT abdomen/pelvis exam of 12/07/2018 noted a 6 x 9 mm distal right ureteral calculus producing moderate obstruction of the right collecting system. That calculus is difficult to identify with certainty on this study. There is a 4 mm calcification low in the pelvis on the right but this finding seems to have been present on the prior exam of 07/31/2018 and consequently I suspect it is more likely due to a phlebolith than to the obstructive calculus seen on the recent CT exam. If further evaluation is desired, then a repeat CT examination would be recommended. There is no other pathological calcification identified to suggest a ureteral stone. IMPRESSION: The obstructive calculus involving the distal right ureter seen on the recent CT abdomen/pelvis exam cannot be identified with certainty on this study. Recommendations as above. Dictated by: Dictated on workstation # [id number]
== END ==
LOC: RAD 15:52
PROVIDERS: ATTEND Urology
DX: N20.1 Calculus of ureter (principal)
CPT/HCPCS: 74018

== ENCOUNTER 2019-01-04 14:10 | Outpatient (CLI) | payer MEDICARE ==
[~2019-01-04] VITALS: Ht 167.7 cm; Wt 77.3 kg
[~2019-01-04 14:10] MED LIST changes: +TAMS0.4C98 PO
== END 2019-01-04 14:21 | disposition home or self-care (01) ==
LOC: PREOP 14:10
PROVIDERS: ATTEND Urology
DX: Z01.818 Encounter for other preprocedural examination (principal)

== ENCOUNTER 2019-01-10 06:31 | Day surgery (SDC) | payer MEDICARE ==
[~2019-01-10] VITALS: Ht 167.7 cm; Wt 78.5 kg
[2019-01-10] VITALS (11 sets, daily range): BP systolic 121–188; BP diastolic 54–84
[2019-01-10] MEDS ORDERED: ONDANSETRON 4 MG/2 ML (SDV) Z0FRAN ONE (07:07)
[2019-01-10] MEDS ORDERED: fentaNYL INJECTION 100 MCG/2 ML AMP ONE (07:07)
[2019-01-10] MEDS ORDERED: LIDOCAINE PF 2% 5 ML (XYLOCAINE) VIAL ONE (07:07)
[2019-01-10] MEDS ORDERED: proPOfol 200 MG/20 ML (DIPRIVAN) VIAL IV ONE (07:07)
[2019-01-10] MEDS ORDERED: SEVOFLURANE (ULTANE) 15 ML INHAL SOLN ONE (07:07)
[2019-01-10] MEDS ORDERED: MIDAZOLAM 2 MG/2 ML (VERSED) VIAL ONE (07:07)
--- NOTE | 2019-01-10 07:11 | Progress Note-Pre Operative ---
Pre-Operative Progress Note H&P Reviewed The H&P was reviewed, patient examined and no changes noted. Date Seen by Provider: Jan 10, 2019 Time Seen by Provider: 07:11 Date H&P Reviewed: Jan 10, 2019 Time H&P Reviewed: 07:11 Pre-Operative Diagnosis: RT DISTAL URETERAL STONE JAZMINE AVILEZ MD Jan 10, 2019 07:11
--- NOTE | 2019-01-10 07:12 | Progress Note-Post Operative ---
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
--- NOTE | 2019-01-10 07:13 | Discharge Inst-Urology ---
Discharge Inst-Urology Reconcile Patient Problems Problems Reviewed?: Yes Patient Instructions/Follow Up Plan/Assessment/Instructions Please make appointment to been seen in office in 2 weeks. Increase oral fluids for 48 hours and then as needed. Diet and Activity as tolerated. If questions or concerns contact your physician Or seek help at emergency department. JAZMINE AVILEZ MD Jan 10, 2019 07:13
[2019-01-10] MEDS ORDERED: LACTATED RINGERS 1,000 ML IV PRN (07:19)
[2019-01-10] MEDS ORDERED: cefTRIAXone 1,000 MG IV (ROCEPHIN) VIAL ONE (07:21)
[2019-01-10] MEDS ORDERED: cefTRIAXone FOR IV USE 1,000 MG in WATER (STERILE) FOR INJECTION 10 ML IV ONE (07:30)
[2019-01-10] MEDS ORDERED: CATHETER FLUSH 10 ML SYR IV PRN (07:45)
--- NOTE | 2019-01-10 08:15 | Diagnostic Imaging Report ---
INDICATION: Pre ESWL evaluation. COMPARISON: 12/27/2018. FINDINGS: 2 supine radiographic views of the abdomen were obtained. 3-4 mm calculus is again identified projecting over the expected location of the distal right ureter. No new extraosseous calcifications or radiopaque foreign bodies are seen. Small bowel loops are nondistended. There is no large collection of free intraperitoneal air. IMPRESSION: 1. Redemonstration of distal right ureteral calculus. Dictated by: Dictated on workstation # [id number]
[2019-01-10] MEDS ORDERED: ROCURONIUM 10 MG/ML 5 ML SYRINGE IV ONE (08:20)
[2019-01-10] MEDS ORDERED: IOPAMIDOL 61% 30 ML (ISOVUE 300) VIAL IV ONE ×2 (08:37→08:45)
[2019-01-10] MEDS ORDERED: NEOSTIGMINE 3 MG/3 ML VIAL ONE (08:43)
[2019-01-10] MEDS ORDERED: GLYCOPYRROLATE 0.2 MG/ML (ROBINUL) 2 ML VIAL ONE (08:43)
[2019-01-10] MEDS ORDERED: ONDANSETRON 4 MG/2 ML (SDV) Z0FRAN IVP PRN (09:00)
[2019-01-10] MEDS ORDERED: morphine INJ 10 MG/ML 1ML (SYR OR VIAL) IVP ONE (09:00)
[2019-01-10] MEDS ORDERED: SULF1TAB35 PO (09:20)
[2019-01-10] MEDS ORDERED: PHEN-640 PO (09:20)
--- NOTE | 2019-01-10 11:40 | Anesthesia-General Post-Op ---
General Patient Condition Mental Status/LOC: Same as Preop Cardiovascular: Satisfactory Nausea/Vomiting: Absent Respiratory: Satisfactory Pain: Controlled Complications: Absent Post Op Complications Complications None Follow Up Care/Instructions Patient Instructions None needed. Anesthesia/Patient Condition Patient Condition Patient is doing well, no complaints, stable vital signs, no apparent adverse anesthesia problems. No complications reported per nursing. IMAN LAL CRNA Jan 10, 2019 11:40
--- NOTE | 2019-01-10 13:19 | OPERATIVE REPORT ---
DATE OF SERVICE: 01/10/2019 PREOPERATIVE DIAGNOSIS: Right distal ureteral stone. 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 No stone. OPERATION PERFORMED: Cystoscopy, right retrograde urogram and right ureteroscopy. SURGEON: Tristan Avilez MD ANESTHESIA: General. COMPLICATIONS: None. DESCRIPTION OF PROCEDURE: Under satisfactory general anesthesia, the patient in lithotomy position, genitalia were prepped and draped in the usual sterile fashion. Cystoscope was introduced under vision. The anterior urethra was normal. The prostate lateral lobe was not obstructing; however, there was a high riding median bar that took quite a bit of manipulation of the scope to enter the bladder. The bladder revealed trabeculations. Ureteric orifices were normal in shape, size and configuration with clear effluxes. Using the foroblique lens, I passed a ureteral catheter into the right ureteral orifice. There was no resistance. I went all the way up almost to the kidney. The calcification that was seen in the pelvis was completely outside the ureter, most probably a phlebolith. I backed up the catheter, injected contrast. There was fishhook deformity of the ureter with hydroureter proximal to it. No filling defect was visualized and there was emptying of the ureter; however, not completely on withdrawing the catheter. I went ahead and removed the cystoscope, inserted the semi-rigid 6.9 Malay ureteroscope. I went into the ureter. There was no stone in the distal ureter, went up to the mid ureter. There were no stones as well. I backed out the ureteroscope. The patient tolerated the procedure and anesthesia well and was sent to recovery room in stable condition. I explained the findings to his family and later on to the patient. Job ID: [id number] DocumentID: [id number] Dictated Date: 01/10/2019 09:03:02 Interior Design Instructor Date: 01/10/2019 13:18:34 Dictated By: TRISTAN AVILEZ MD
== END 2019-01-10 11:00 | disposition home or self-care (01) ==
LOC: SDC 06:31
PROVIDERS: ATTEND Urology
DX: N40.0 Benign prostatic hyperplasia without lower urinary tract symptoms (principal); N28.89 Other specified disorders of kidney and ureter; N32.89 Other specified disorders of bladder; Z79.899 Other long term (current) drug therapy
CPT/HCPCS: 74018; 82962; 87081

== ENCOUNTER → 2019-03-08 | Outpatient (CLI) | payer MEDICARE ==
[~2019-03-08] MED LIST changes: +SULF1TAB35 PO
[2019-03-08 14:29] LABS: BASOPHILS % (AUTO) 0 % (0-10); EOSINOPHILS % (AUTO) 0 % (0-10); HEMATOCRIT 43 % (40-54); HEMOGLOBIN 14.4 G/DL (13.3-17.7); LYMPHOCYTES # (AUTO) 0.9 X 10^3 (1.0-4.0); LYMPHOCYTES % (AUTO) 6 % (12-44); MEAN CORPUSCULAR HEMOGLOBIN 33 PG (25-34); MEAN CORPUSCULAR HGB CONC 34 G/DL (32-36); MEAN CORPUSCULAR VOLUME 97 FL (80-99); MEAN PLATELET VOLUME 9.9 FL (7.4-10.4); MONOCYTES # (AUTO) 1.6 X 10^3 (0.0-1.0); MONOCYTES % (AUTO) 12 % (0-12); NEUTROPHILS # (AUTO) 11.3 X 10^3 (1.8-7.8); NEUTROPHILS % (AUTO) 82 % (42-75); PLATELET COUNT 335 10^3/uL (130-400); RED CELL DISTRIBUTION WIDTH 13.1 % (10.0-14.5); WHITE BLOOD COUNT 13.8 10^3/uL (4.3-11.0)
[2019-03-08 14:50] LABS: ALBUMIN 3.9 GM/DL (3.2-4.5); CALCIUM 9.6 MG/DL (8.5-10.1); CREATININE SERUM 2.6 MG/DL (0.60-1.30); PHOSPHORUS 3.2 MG/DL (2.3-4.7); URIC ACID 6.8 MG/DL (2.6-7.2)
[2019-03-08 15:04] LABS: HYPERSEGMENTED NEUT SLIGHT; LYMPHOCYTES % (MANUAL) 2 %; MONOCYTES % (MANUAL) 13 %; NEUTROPHILS % (MANUAL) 85 %; RBC MORPH NORMAL
== END ==
LOC: LAB 14:05
PROVIDERS: ATTEND Internal Medicine Nephrology
DX: I12.9 Hypertensive chronic kidney disease with stage 1 through stage 4 chronic kidney disease, or unspecified chronic kidney disease (principal); N18.4 Chronic kidney disease, stage 4 (severe); C61 Malignant neoplasm of prostate; E78.5 Hyperlipidemia, unspecified
CPT/HCPCS: 36415; 80069; 82306; 83970; 84550; 85007; 85027

== ENCOUNTER → 2019-03-16 | Outpatient (CLI) | payer MEDICARE ==
--- NOTE | 2019-03-16 15:22 | Diagnostic Imaging Report ---
INDICATION: Stage IV chronic renal disease. TECHNIQUE: Multiple real-time grayscale sonographic images were obtained of the kidneys. COMPARISON: 11/17/2018. FINDINGS: RIGHT KIDNEY: 9.6 x 5.2 x 6.0 cm. LEFT KIDNEY: 9.7 x 5.3 x 6.1 cm. Unchanged slightly lobulated appearance about the right renal parenchyma. This appears unchanged. Left kidney is stable. There is no appreciable hydronephrosis or evidence of obstruction on follow-up. No definitive calcification. URINARY BLADDER: Ureteral jets unable to be visualized. IMPRESSION: 1. No appreciable right-sided hydronephrosis on follow-up. 2. Unchanged lobulated appearance about the right renal parenchyma. 3. Again seen somewhat increased echogenicity of the renal parenchyma of both kidneys suggestive of chronic medical renal disease. Dictated by: Dictated on workstation # [id number]
== END ==
LOC: RAD 14:40
PROVIDERS: ATTEND Internal Medicine Nephrology
DX: I12.9 Hypertensive chronic kidney disease with stage 1 through stage 4 chronic kidney disease, or unspecified chronic kidney disease (principal); N18.4 Chronic kidney disease, stage 4 (severe); N13.2 Hydronephrosis with renal and ureteral calculous obstruction; E78.5 Hyperlipidemia, unspecified; N28.89 Other specified disorders of kidney and ureter
CPT/HCPCS: 76770

== ENCOUNTER → 2019-05-11 | Outpatient (CLI) | payer MEDICARE ==
[~2019-05-11] MED LIST changes: -BISO5TAB PO; +BISO5TAB3 PO; -GLIM2TAB PO; +GLIM2TAB2 PO; +SIMV20TA26 PO; -SIMV20TA3 PO; -TAMS0.4C98 PO; +TMSL.4C PO
[2019-05-11 13:34] LABS: BASOPHILS % (AUTO) 1 % (0-10); EOSINOPHILS # (AUTO) 0.1 10^3/uL (0.0-0.3); EOSINOPHILS % (AUTO) 2 % (0-10); HEMATOCRIT 42 % (40-54); HEMOGLOBIN 13.8 G/DL (13.3-17.7); LYMPHOCYTES # (AUTO) 0.8 X 10^3 (1.0-4.0); LYMPHOCYTES % (AUTO) 13 % (12-44); MEAN CORPUSCULAR HEMOGLOBIN 32 PG (25-34); MEAN CORPUSCULAR HGB CONC 33 G/DL (32-36); MEAN CORPUSCULAR VOLUME 95 FL (80-99); MEAN PLATELET VOLUME 9.6 FL (7.4-10.4); MONOCYTES # (AUTO) 0.7 X 10^3 (0.0-1.0); MONOCYTES % (AUTO) 11 % (0-12); NEUTROPHILS # (AUTO) 4.8 X 10^3 (1.8-7.8); NEUTROPHILS % (AUTO) 74 % (42-75); PLATELET COUNT 289 10^3/uL (130-400); RED CELL DISTRIBUTION WIDTH 12.9 % (10.0-14.5); WHITE BLOOD COUNT 6.5 10^3/uL (4.3-11.0)
[2019-05-11 13:52] LABS: CALCIUM 9.7 MG/DL (8.5-10.1); CREATININE SERUM 1.79 MG/DL (0.60-1.30); PHOSPHORUS 2.9 MG/DL (2.3-4.7); POTASSIUM 4.3 MMOL/L (3.6-5.0); URIC ACID 5.8 MG/DL (2.6-7.2)
== END ==
LOC: LAB 13:09
PROVIDERS: ATTEND Internal Medicine Nephrology
DX: I12.9 Hypertensive chronic kidney disease with stage 1 through stage 4 chronic kidney disease, or unspecified chronic kidney disease (principal); N18.4 Chronic kidney disease, stage 4 (severe); N13.2 Hydronephrosis with renal and ureteral calculous obstruction; E78.5 Hyperlipidemia, unspecified
CPT/HCPCS: 36415; 80069; 82306; 82570; 83970; 84156; 84550; 85025

== ENCOUNTER → 2019-10-09 | Outpatient (CLI) | payer MEDICARE ==
[~2019-10-09] MED LIST changes: -BISO5TAB3 PO; -GLIM2TAB2 PO; +GLIM2TAB4 PO; +NF-BISOP5 PO
[2019-10-09 14:19] LABS: BASOPHILS % (AUTO) 1 % (0-10); EOSINOPHILS # (AUTO) 0.1 10^3/uL (0.0-0.3); EOSINOPHILS % (AUTO) 2 % (0-10); HEMATOCRIT 44 % (40-54); HEMOGLOBIN 14.6 G/DL (13.3-17.7); LYMPHOCYTES # (AUTO) 0.9 X 10^3 (1.0-4.0); LYMPHOCYTES % (AUTO) 14 % (12-44); MEAN CORPUSCULAR HEMOGLOBIN 32 PG (25-34); MEAN CORPUSCULAR HGB CONC 34 G/DL (32-36); MEAN CORPUSCULAR VOLUME 95 FL (80-99); MEAN PLATELET VOLUME 10.1 FL (7.4-10.4); MONOCYTES # (AUTO) 0.6 X 10^3 (0.0-1.0); MONOCYTES % (AUTO) 9 % (0-12); NEUTROPHILS # (AUTO) 4.8 X 10^3 (1.8-7.8); NEUTROPHILS % (AUTO) 75 % (42-75); PLATELET COUNT 277 10^3/uL (130-400); WHITE BLOOD COUNT 6.5 10^3/uL (4.3-11.0)
[2019-10-09 14:30] LABS: ALBUMIN 4.1 GM/DL (3.2-4.5); POTASSIUM 4.1 MMOL/L (3.6-5.0)
[2019-10-09 14:36] LABS: CREATININE SERUM 2.22 MG/DL (0.60-1.30)
[2019-10-09 14:38] LABS: URIC ACID 6.2 MG/DL (2.6-7.2)
== END ==
LOC: LAB 13:41
PROVIDERS: ATTEND Internal Medicine Nephrology
DX: I12.9 Hypertensive chronic kidney disease with stage 1 through stage 4 chronic kidney disease, or unspecified chronic kidney disease (principal); N18.3 Chronic kidney disease, stage 3 (moderate); E21.2 Other hyperparathyroidism; E55.9 Vitamin D deficiency, unspecified
CPT/HCPCS: 36415; 80069; 82306; 82570; 83970; 84156; 84550; 85025

== ENCOUNTER → 2020-05-04 | Outpatient (CLI) | payer MEDICARE | LOC: LAB 11:46 | PROVIDERS: ATTEND Family Medicine | DX: R97.20 Elevated prostate specific antigen [PSA] (principal) | CPT/HCPCS: 36415; 84153 ==

== ENCOUNTER → 2020-05-04 | Outpatient (CLI) | payer MEDICARE ==
[2020-05-04 12:15] LABS: BASOPHILS # (AUTO) 0.1 10^3/uL (0.0-0.1); BASOPHILS % (AUTO) 1 % (0-10); EOSINOPHILS # (AUTO) 0.2 10^3/uL (0.0-0.3); EOSINOPHILS % (AUTO) 3 % (0-10); HEMATOCRIT 46 % (40-54); LYMPHOCYTES # (AUTO) 1.2 10^3/uL (1.0-4.0); LYMPHOCYTES % (AUTO) 14 % (12-44); MEAN CORPUSCULAR HEMOGLOBIN 31 pg (25-34); MEAN CORPUSCULAR HGB CONC 33 g/dL (32-36); MEAN CORPUSCULAR VOLUME 95 fL (80-99); MEAN PLATELET VOLUME 10.2 fL (9.0-12.2); MONOCYTES # (AUTO) 0.6 10^3/uL (0.0-1.0); MONOCYTES % (AUTO) 8 % (0-12); NEUTROPHILS # (AUTO) 6.2 10^3/uL (1.8-7.8); NEUTROPHILS % (AUTO) 74 % (42-75); PLATELET COUNT 151 10^3/uL (130-400); WHITE BLOOD COUNT 8.3 10^3/uL (4.3-11.0)
[2020-05-04 12:25] LABS: ALBUMIN 4.3 GM/DL (3.2-4.5)
[2020-05-04 12:27] LABS: CALCIUM 9.7 MG/DL (8.5-10.1)
[2020-05-04 12:31] LABS: CREATININE SERUM 1.88 MG/DL (0.60-1.30); PHOSPHORUS 2.9 MG/DL (2.3-4.7)
[2020-05-04 12:34] LABS: URIC ACID 5.2 MG/DL (2.6-7.2)
== END ==
LOC: LAB 11:46
PROVIDERS: ATTEND Internal Medicine Nephrology
DX: E55.9 Vitamin D deficiency, unspecified (principal); E21.2 Other hyperparathyroidism; I12.9 Hypertensive chronic kidney disease with stage 1 through stage 4 chronic kidney disease, or unspecified chronic kidney disease; N18.30 Chronic kidney disease, stage 3 unspecified
CPT/HCPCS: 36415; 80069; 82306; 82570; 83970; 84156; 84550; 85025

== ENCOUNTER → 2020-05-07 | Outpatient (CLI) | payer MEDICARE ==
--- NOTE | 2020-05-07 13:57 | Diagnostic Imaging Report ---
PROCEDURE: MR imaging of the brain without contrast. TECHNIQUE: Multiplanar, multisequence MR imaging of the brain was performed without contrast. INDICATION: Confusion. No prior studies are available for comparison. Ventricles and sulci are prominent consistent with the patient's age and cerebral atrophy. There is periventricular and subcortical white matter signal abnormalities noted, likely on the basis of chronic microvascular ischemia. There appears to be an area of old infarct and encephalomalacia in the right posterior parietal lobe with some associated laminar necrosis on the noncontrast T1-weighted images. No acute intra-axial or extra-axial hemorrhage is detected. Corpus callosum is unremarkable. Sella and parasellar structures are unremarkable. There are multiple tiny foci of diffusion restriction involving bilateral cerebral hemispheres as well as bilateral cerebellar hemispheres. Findings are consistent with microinfarcts, perhaps from showering emboli. No definite large territory restriction is seen. The normal expected flow-voids within the carotid siphons are seen. IMPRESSION: 1. Chronic and senescent changes. There are also multiple tiny areas of diffusion restriction involving bilateral cerebral and bilateral cerebellar hemispheres consistent with acute/subacute microinfarcts. This may be owing to embolic phenomenon. No acute intracranial hemorrhage is identified. Dictated by: Dictated on workstation # [id number]
== END ==
LOC: RAD 12:41
PROVIDERS: ATTEND Nurse Practitioner Family
DX: G31.9 Degenerative disease of nervous system, unspecified (principal); R55 Syncope and collapse
CPT/HCPCS: 70551

== ENCOUNTER 2020-05-10 19:48 | Inpatient (IN) | payer MEDICARE ==
[~2020-05-10] VITALS: Ht 165.1 cm; Wt 77.0 kg
--- NOTE | 2020-05-10 20:22 | ED General ---
General Stated Complaint: MEMORY ISSUES/DIFFICULTY WALKING Source of Information: Patient, Family Exam Limitations: Other (AMS) History of Present Illness Date Seen by Provider: May 10, 2020 Time Seen by Provider: 20:05 Initial Comments This is a 80-year-old male who was brought to the ER by his sister via POV for increasing confusion and weakness. States patient has been experiencing forgetfulness frequently over the past month. Today she attempted to call him and he did not answer, so she did a wellness check and found him on the floor in his room. He was down for unknown length of time. Sister states he has been worked up by his PCP for confusion and had an MRI of his brain on May 07, which showed new and chronic strokes. He denies fevers, chills, headache, dizziness, chest pain, shortness of breath, cough, nausea, vomiting, diarrhea or abdominal pain. Does note that he feels a little weak with ambulation. Allergies and Home Medications Allergies Coded Allergies: No Known Drug Allergies (Unverified , 01/10/19) Home Medications Bisoprolol Fumarate 5 Mg Tablet, 7.5 MG PO BID, (Reported) take 1.5 of 5mg tab Glimepiride 2 Mg Tablet, 1 MG PO BID, (Reported) take 1/2 of 2mg tab Losartan Potassium 100 Mg Tablet, 100 MG PO DAILY, (Reported) Phenazopyridine HCl 200 Mg Tablet, 1 TAB PO TID Prescribed by: AKIKO CERRATO on 01/10/19919 Simvastatin 20 Mg Tablet, 20 MG PO DAILY, (Reported) Sulfamethoxazole/Trimethoprim 1 Each Tablet, 1 EACH PO BID WITH MEALS Prescribed by: AKIKO CERRATO on 01/10/19919 Tamsulosin HCl 0.4 Mg Cap, 0.4 MG PO DAILY@1900, (Reported) Patient Home Medication List Home Medication List Reviewed: Yes Review of Systems Review of Systems Constitutional: see HPI EENTM: no symptoms reported Respiratory: no symptoms reported Cardiovascular: no symptoms reported Gastrointestinal: no symptoms reported Genitourinary: no symptoms reported Musculoskeletal: see HPI Skin: no symptoms reported Psychiatric/Neurological: See HPI Hematologic/Lymphatic: No Symptoms Reported Immunological/Allergic: no symptoms reported Past Xzvgpof-Ciauhf-Imnvde Hx Patient Social History Recent Hopitalizations: No Immunizations Up To Date Tetanus Booster (TDap): Unknown PED Vaccines UTD: No Seasonal Allergies Seasonal Allergies: No Past Medical History Surgeries: Yes (UMBILICAL HERNIA; CYSTOSCOPY/PROSTATE BIOPSY; BILATERAL CATARACT SURGERY) Abdominal, Eye Surgery Respiratory: No Cardiac: Yes High Cholesterol, Hypertension Neurological: No Reproductive Disorders: No Sexually Transmitted Disease: No HIV/AIDS: No Genitourinary: Yes (PROSTATE CANCER DX 03/2018) Prostate Problems, Kidney Stones Gastrointestinal: Yes (UMBILICAL HERNIA REPAIR; POST RADIATION DIARRHEA/INCONTINENCE) Musculoskeletal: Yes Arthritis Endocrine: Yes Diabetes, Non-Insulin dep HEENT: Yes (S/P BILATERAL CATARACT SURGERY) Cataract Loss of Vision: Bilateral Hearing Impairment: Denies Cancer: Yes Prostate, Skin Did You Recieve Any Treatments: Yes What Type of Treatment Did You: Radiation Psychosocial: No Integumentary: No Blood Disorders: No Adverse Reaction/Blood Tranf: No (N/A) Physical Exam Vital Signs Vital Signs - First Documented 05/10/20 19:56 Temp 36.0 Pulse 107 Resp 18 B/P (MAP) 134/81 (98) Pulse Ox 100 O2 Delivery Room Air Capillary Refill : Height, Weight, BMI Height: 5'6.00" Weight: 171lbs. 0.0oz. 77.193513gd; 27.91 BMI Method:Estimated General Appearance: No Apparent Distress, WD/WN Eyes: Bilateral Eye Normal Inspection, Bilateral Eye PERRL, Bilateral Eye EOMI HEENT: PERRL/EOMI, TMs Normal, Normal ENT Inspection, Pharynx Normal; No Moist Mucous Membranes (dry mucous membranes ) Neck: Full Range of Motion, Normal Inspection, Non Tender, Supple Respiratory: Lungs Clear, Normal Breath Sounds, No Accessory Muscle Use Cardiovascular: Regular Rate, Rhythm, No Edema, Normal Peripheral Pulses, Extra Beats Gastrointestinal: Normal Bowel Sounds, Non Tender, Soft Back: Normal Inspection, Vertebral Tenderness (thoracic spine ) Extremity: Normal Capillary Refill, Normal Inspection, Normal Range of Motion, Non Tender, No Calf Tenderness Neurologic/Psychiatric: Alert; No Oriented x3 (Oriented to person and place. ); No Motor/Sensory Deficits, Normal Mood/Affect; No Aphasia, No Depressed Affect, No Disoriented, No Facial Droop, No Motor Weakness, No Sensory Deficit Skin: Normal Color, Warm/Dry, Other (questionable osler node dorsal aspect of left hand ) Comments Right great toe blue with delayed cap refill 5 seconds. Left third toe blue with delayed cap refill 4 seconds. Sensation intact. Focused Exam Sepsis Stage: Sepsis Possible Source: Endocarditis Lactate Level 05/10/20 20:07: Lactic Acid Level 3.00*H 05/10/20 21:45: Lactic Acid Level 2.29*H Time of Focused Exam: 22:42 Respiratory: Chest Non Tender, Lungs Clear, Normal Breath Sounds, No Accessory Muscle Use, No Respiratory Distress Cardiovascular: Regular Rate, Rhythm, Normal Peripheral Pulses, Extra Beats, Tachycardia Peripheral Pulses: 2+ Dorsalis Pedis (R), 2+ Left Dors-Pedis (L), 2+ Radial Pulses (R), 2+ Radial Pulses (L) Skin: cool (Right great toe and left third toe ) Lactic Acid Level Laboratory Tests Test 05/10/20 20:07 05/10/20 21:45 Lactic Acid Level 3.00 MMOL/L (0.50-2.00) *H 2.29 MMOL/L (0.50-2.00) *H Within 3hrs of presentation: Admin fluids, Admin ABX, Blood cultures prior to ABX's, Focus exam, Lactate level Progress/Results/Core Measures Suspected Sepsis Recent Fever Within 48 Hours: No Infection Criteria Present: Suspected New Infection New/Unexplained Altered Menta: Yes Within 3hrs of presentation: Admin fluids, Blood cultures prior to ABX's, Focus exam, Lactate level Sepsis Diagnosis: (1) Observation for suspected infectious endocarditis (2) Septic embolism SIRS Temperature: Pulse: Respiratory Rate: Laboratory Tests 05/10/20 20:07: White Blood Count 14.4H Blood Pressure / Mean: 05/10/20 20:07: Lactic Acid Level 3.00*H 05/10/20 21:45: Lactic Acid Level 2.29*H Laboratory Tests 05/10/20 20:07: Creatinine 2.41H, INR Comment 1.2, Platelet Count 176, Total Bilirubin 1.6H Results/Orders Lab Results Laboratory Tests Test 05/10/20 20:07 05/10/20 21:00 05/10/20 21:08 05/10/20 21:45 Range/Units White Blood Count 14.4 H 4.3-11.0 10^3/uL Red Blood Count 5.21 4.30-5.52 10^6/uL Hemoglobin 16.1 13.3-17.7 g/dL Hematocrit 50 40-54 % Mean Corpuscular Volume 95 80-99 fL Mean Corpuscular Hemoglobin 31 25-34 pg Mean Corpuscular Hemoglobin Concent 33 32-36 g/dL Red Cell Distribution Width 13.4 10.0-14.5 % Platelet Count 176 130-400 10^3/uL Mean Platelet Volume 10.9 9.0-12.2 fL Immature Granulocyte % (Auto) 1 % Neutrophils (%) (Auto) 85 H 42-75 % Lymphocytes (%) (Auto) 5 L 12-44 % Monocytes (%) (Auto) 9 0-12 % Eosinophils (%) (Auto) 0 0-10 % Basophils (%) (Auto) 0 0-10 % Neutrophils # (Auto) 12.3 H 1.8-7.8 10^3/uL Lymphocytes # (Auto) 0.7 L 1.0-4.0 10^3/uL Monocytes # (Auto) 1.2 H 0.0-1.0 10^3/uL Eosinophils # (Auto) 0.0 0.0-0.3 10^3/uL Basophils # (Auto) 0.1 0.0-0.1 10^3/uL Immature Granulocyte # (Auto) 0.1 0.0-0.1 10^3/uL Neutrophils % (Manual) 88 % Lymphocytes % (Manual) 1 % Monocytes % (Manual) 9 % Eosinophils % (Manual) 0 % Basophils % (Manual) 0 % Band Neutrophils 0 % Reactive Lymphocytes 2 % Blood Morphology Comment NORMAL Erythrocyte Sedimentation Rate 4 0-30 MM/HR Prothrombin Time 15.3 H 12.2-14.7 SEC INR Comment 1.2 0.8-1.4 Activated Partial Thromboplast Time 30 24-35 SEC D-Dimer > 20.00 *H 0.00-0.49 UG/ML Sodium Level 137 135-145 MMOL/L Potassium Level 4.4 3.6-5.0 MMOL/L Chloride Level 102 98-107 MMOL/L Carbon Dioxide Level 18 L 21-32 MMOL/L Anion Gap 17 H 5-14 MMOL/L Blood Urea Nitrogen 30 H 7-18 MG/DL Creatinine 2.41 H 0.60-1.30 MG/DL Estimat Glomerular Filtration Rate 26 BUN/Creatinine Ratio 12 Glucose Level 323 H 70-105 MG/DL Lactic Acid Level 3.00 *H 2.29 *H 0.50-2.00 MMOL/L Calcium Level 10.1 8.5-10.1 MG/DL Corrected Calcium 9.9 8.5-10.1 MG/DL Total Bilirubin 1.6 H 0.1-1.0 MG/DL Aspartate Amino Transf (AST/SGOT) 58 H 5-34 U/L Alanine Aminotransferase (ALT/SGPT) 34 0-55 U/L Alkaline Phosphatase 86 40-136 U/L Troponin I 26.276 *H <0.028 NG/ML C-Reactive Protein High Sensitivity 6.51 H 0.00-0.50 MG/DL Total Protein 8.0 6.4-8.2 GM/DL Albumin 4.2 3.2-4.5 GM/DL Coronavirus 2019 (JAYY) Negative Negative Urine Color ORANGE Urine Clarity SL CLOUDY Urine pH 5.0 5-9 Urine Specific [place] >=1.030 1.016-1.022 Urine Protein 2+ H NEGATIVE Urine Glucose (UA) 2+ H NEGATIVE Urine Ketones TRACE H NEGATIVE Urine Nitrite NEGATIVE NEGATIVE Urine Bilirubin 1+ H NEGATIVE Urine Urobilinogen 1.0 < = 1.0 MG/DL Urine Leukocyte Esterase NEGATIVE NEGATIVE Urine RBC (Auto) 2+ H NEGATIVE Urine RBC RARE /HPF Urine WBC 0-2 /HPF Urine Squamous Epithelial Cells NONE /HPF Urine Crystals PRESENT H /LPF Urine Amorphous Sediment FEW WINDY URATES H /LPF Urine Bacteria MODERATE H /HPF Urine Casts PRESENT /LPF Urine Hyaline Casts 10-25 H /LPF Urine Granular Casts 5-10 H /LPF Urine Mucus SMALL H /LPF Urine Culture Indicated YES My Orders Orders - MELISSA DAMON APRN Urinalysis (05/10/20 19:52) Troponin I (05/10/20 20:14) Chest 1 View, Ap/Pa Only (05/10/20 20:14) Ekg Tracing (05/10/20 20:14) Monitor-Rhythm Ecg Trace Only (05/10/20 20:14) Cbc With Automated Diff (05/10/20 20:14) Comprehensive Metabolic Panel (05/10/20 20:14) Sputum Culture (05/10/20 20:14) Urine Culture (05/10/20 20:14) Protime With Inr (05/10/20 20:14) Partial Thromboplastin Time (05/10/20 20:14) Lactic Acid Analyzer (05/10/20 20:14) Fibrin Degradation Products (05/10/20 20:16) Manual Differential (05/10/20 20:07) Thoracic Spine, 2 Views Only (05/10/20 20:23) Blood Culture (05/10/20 20:23) Ns Iv 1000 Ml (Sodium Chloride 0.9%) (05/10/20 20:45) Covid 19 Inhouse Test (05/10/20 20:33) Erythrocyte Sedimentation Rate (05/10/20 20:59) Hs C Reactive Protein (05/10/20 20:59) Ceftriaxone For Iv Use (Rocephin For I (05/10/20 22:30) Aspirin Chewable Tablet (Baby Aspirin Ch (05/10/20 22:30) Enoxaparin Injection (Lovenox Injection) (05/10/20 22:30) Vancomycin Injection (Vancomycin Injecti (05/10/20 22:45) Normal Saline Bolus 1,000ml (05/10/20 22:45) Medications Given in ED Current Medications Medications Dose Ordered Sig/Trisha Route Start Time Stop Time Status Last Admin Dose Admin Sodium Chloride 1,000 ml @ 999 mls/hr Q1H ONCE IV 05/10/20 20:45 05/10/20 21:45 DC 05/10/20 21:08 999 MLS/HR Vital Signs/I&O 05/10/20 19:56 Temp 36.0 Pulse 107 Resp 18 B/P (MAP) 134/81 (98) Pulse Ox 100 O2 Delivery Room Air Capillary Refill : Progress Note : Progress Note Pt. examined upon arrival. He is noted to be tachycardiac with stable BP. He has no physical complaints and is in no acute distress. Reviewed MRI report from 05/07/20 which shows chronic and senescent changes with multiple tiny areas of diffusion restriction involving bilateral cerebral and bilateral cerebellar hemispheres consistent with acute/subacute microinfarcts, possibly owing to embolic phenomenon. Concern is for septic embolic, initiated sepsis workup. Sister noted he is scheduled to have echo and carotid duplex Tuesday morning. Labs reviewed, elevated WBC-14.4 with lactic 3.00. Initiated 30mg/kg fluid bolus replacement with 2 liters NS. VSS. Critical troponin called to RN at 26.276. D- dimer >20. 2058: Called Dr. Velez and reviewed troponin and EKG changes, request patient be admitted to ICU to hospitalist with cardiology consult d/t infection and elevated lactic. Orders given to admit Lovenox and ASA. Patient to have Echo in am. 2127: Called Dr. Patel and reviewed case. Agreeable with inpatient ICU admission and cardiology consult. 2144: Repeat lactic acid 2.29, will continue to trend until <2. CXR neg for acute findings. X-ray thoracic spine shows a compression deformity within the mid thoracic spine which is age indeterminate. Recommendation for MRI. 2149: Reviewed diagnosis and plan with patient and sister. Both are agreeable with plan. Code status discussed and patient verbalized wish to be full code at this time. He is stable to transfer to ICU. Plan: Admit to ICU inpatient Septic Emboli/Observe for IE -Rocephin 2gm IV q24 hours, first dose given in ED. -Vancomycin 1gm IV, pharmacy to dose. First dose given in ED. -2 Liters NS given in ED, NS 100ml/hr maintenance -Trend lactic level until <2 -Repeat CBC,CMP in am -ECHO in am -COVID negative Subacute IA -Serial troponin per protocol -Lovenox 1mg/kg q24 hours, dose is 70mg subcut and first dose given in ED. -ECHO and Carotid Duplex in am -Aspirin 81mg PO daily, given 324mg PO in ED Thoracic compression deformity -Orders placed for compression brace, and MRI thoracic spine without contrast ordered to further evaluate deformity. Weakness/confusion -Fall precautions -May benefit from PT consult Pain/fever -Tylenol 650mg PO q 6 hours PRN -Fentanyl 25mcg IVP q2 hours PRN pain Nausea/vomiting prophylaxis -Zofran 4mg IVP q 6 hours PRN FULL CODE ECG Initial ECG Impression Date: May 10, 2020 Initial ECG Impression Time: 20:15 Initial ECG Rate: 108 Initial ECG Rhythm: S.Tach Initial ECG Comparisson: No Previous ECG Available Comment NSTEMI, subactue IA, t wave inversion v3-v6 Diagnostic Imaging Diagonstic Imaging: Xray Plain Films/CT/US/NM/MRI: other Comments NAME: [facility] REC#: [id number] PT STATUS: REG ER : 1940 PHYSICIAN: MELISSA DAMON APRN ADMIT DATE: 05/10/20/ER Signed Date of Exam:05/10/20 THORACIC SPINE, 2 VIEWS ONLY INDICATION: Fell out of bed, pain between shoulder blades. EXAMINATION: Thoracic spine, 05/10/2020. FINDINGS: Two views of the thoracic spine. There is a compression deformity within the mid thoracic spine which is age indeterminate. The remaining vertebral body heights appear preserved with multilevel degenerative disease and large anterior spurs in the lower thoracic and upper lumbar region. IMPRESSION: Age indeterminate compression deformity of a mid to distal thoracic vertebral body. MRI could evaluate for edema if there is focal point tenderness. Remaining findings appear chronic. Dictated by: Dictated on workstation # [id number] Dict: 05/10/202104 Trans: 05/10/202207 PJE [id number] Interpreted by: ТАЬТЯНА COLBERT MD Electronically signed by: ТАТЬЯНА COLBERT MD 05/10/202207 Diagonstic Imaging: Xray Plain Films/CT/US/NM/MRI: chest Comments NAME: NOMAN [facility] REC#: [id number] PT STATUS: REG ER : 1940 PHYSICIAN: MELISSA DAMON APRN ADMIT DATE: 05/10/20/ER Signed Date of Exam:05/10/20 CHEST 1 VIEW, AP/PA ONLY INDICATION: Chest pain. EXAMINATION: Chest, 05/10/2020. FINDINGS: Single view chest. The cardiomediastinal silhouette is unremarkable. The pulmonary vasculature is within normal limits. The lungs and pleural spaces are clear. IMPRESSION: No evidence of an acute cardiopulmonary process. Dictated by: Dictated on workstation # [id number] Dict: 05/10/202119 Trans: 05/10/202206 PJE [id number] Interpreted by: ТАТЬЯНА COLBERT MD Electronically signed by: ТАТЬЯНА COLBERT MD 05/10/202206 Departure Communication (Admissions) Time/Spoke to Admitting Phy: 21:[address] Hola Patel at this time. Time/Spoke to Consulting Phy: 20:[address] Velez at this time. Impression Primary Impression: Septic embolism Additional Impressions: Observation for suspected infectious endocarditis Subacute ischemic heart disease Compression fx, thoracic spine Disposition: ADMITTED INPATIENT (ERASED) Condition: Stable Admissions Decision to Admit Reason: Admit from ER (General) Decision to Admit/Date: May 10, 2020 Time/Decision to Admit Time: 20:38 Departure-Patient Inst. Referrals: RANDI VIGIL MD (PCP/Family) Primary Care Physician MELISSA DAMON [employer] May 10, 2020 20:22
[2020-05-10 20:23] LABS: BASOPHILS # (AUTO) 0.1 10^3/uL (0.0-0.1); BASOPHILS % (AUTO) 0 % (0-10); EOSINOPHILS % (AUTO) 0 % (0-10); HEMATOCRIT 50 % (40-54); HEMOGLOBIN 16.1 g/dL (13.3-17.7); LYMPHOCYTES # (AUTO) 0.7 10^3/uL (1.0-4.0); LYMPHOCYTES % (AUTO) 5 % (12-44); MEAN CORPUSCULAR HEMOGLOBIN 31 pg (25-34); MEAN CORPUSCULAR HGB CONC 33 g/dL (32-36); MEAN CORPUSCULAR VOLUME 95 fL (80-99); MEAN PLATELET VOLUME 10.9 fL (9.0-12.2); MONOCYTES # (AUTO) 1.2 10^3/uL (0.0-1.0); MONOCYTES % (AUTO) 9 % (0-12); NEUTROPHILS # (AUTO) 12.3 10^3/uL (1.8-7.8); NEUTROPHILS % (AUTO) 85 % (42-75); PLATELET COUNT 176 10^3/uL (130-400); WHITE BLOOD COUNT 14.4 10^3/uL (4.3-11.0)
[2020-05-10 20:36] LABS: ALBUMIN 4.2 GM/DL (3.2-4.5); BILIRUBIN,TOTAL 1.6 MG/DL (0.1-1.0); CALCIUM 10.1 MG/DL (8.5-10.1); CREATININE SERUM 2.41 MG/DL (0.60-1.30); POTASSIUM 4.4 MMOL/L (3.6-5.0)
[2020-05-10 20:44] LABS: BAND NEUTROPHILS 0 %; BASOPHILS % (MANUAL) 0 %; EOSINOPHILS % (MANUAL) 0 %; LYMPHOCYTES % (MANUAL) 1 %; MONOCYTES % (MANUAL) 9 %; NEUTROPHILS % (MANUAL) 88 %; RBC MORPH NORMAL; REACTIVE LYMPHOCYTES 2 %
[2020-05-10] MEDS ORDERED: NS IV 1000 ML 1,000 ML IV ONE ×2 (20:45→22:45)
[2020-05-10 20:57] LABS: INR 1.2 (0.8-1.4); PARTIAL THROMBOPLASTIN TIME 30 SEC (24-35); PROTHROMBIN TIME PATIENT 15.3 SEC (12.2-14.7)
[2020-05-10 21:20] LABS: FIBRIN DEGRADATION PRODUCTS > 20.00 UG/ML (0.00-0.49)
[2020-05-10 21:22] LABS: CLARITY,URINE SL CLOUDY; COLOR,URINE ORANGE; GLUCOSE, URINE (UA) 2+ (NEGATIVE); KETONES,URINE TRACE (NEGATIVE); LEUKOCYTE ESTERASE ,URINE NEGATIVE (NEGATIVE); NITRITE,URINE NEGATIVE (NEGATIVE); PROTEIN,URINE 2+ (NEGATIVE)
--- NOTE | 2020-05-10 21:24 | Diagnostic Imaging Report ---
INDICATION: Chest pain. EXAMINATION: Chest, 05/10/2020. FINDINGS: Single view chest. The cardiomediastinal silhouette is unremarkable. The pulmonary vasculature is within normal limits. The lungs and pleural spaces are clear. IMPRESSION: No evidence of an acute cardiopulmonary process. Dictated by: Dictated on workstation # [id number]
[2020-05-10 21:31] LABS: BILIRUBIN,URINE 1+ (NEGATIVE)
[2020-05-10 21:33] LABS: AMORPHOUS SEDIMENT,UR FEW AMOR URATES /LPF; BACTERIA,URINE MODERATE /HPF; RBC,URINE RARE /HPF; WBC,URINE 0-2 /HPF
--- NOTE | 2020-05-10 21:49 | Diagnostic Imaging Report ---
INDICATION: Fell out of bed, pain between shoulder blades. EXAMINATION: Thoracic spine, 05/10/2020. FINDINGS: Two views of the thoracic spine. There is a compression deformity within the mid thoracic spine which is age indeterminate. The remaining vertebral body heights appear preserved with multilevel degenerative disease and large anterior spurs in the lower thoracic and upper lumbar region. IMPRESSION: Age indeterminate compression deformity of a mid to distal thoracic vertebral body. MRI could evaluate for edema if there is focal point tenderness. Remaining findings appear chronic. Dictated by: Dictated on workstation # [id number]
--- NOTE | 2020-05-10 21:50 | NUR ---
SISTER, BRETT, AT BEDSIDE SPEAKING WITH PT AND PROVIDER REGARDING FINDINGS.
[2020-05-10] MEDS ORDERED: ENOXAPARIN 80 MG/0.8 ML (LOVENOX) SYR SC ONE (22:30)
[2020-05-10] MEDS ORDERED: cefTRIAXone FOR IV USE 2,000 MG in WATER (STERILE) FOR INJECTION 20 ML IV ONE (22:30)
[2020-05-10] MEDS ORDERED: ASPIRIN 81 MG CHEW (CHILDREN'S ASA) PO ONE (22:30)
[2020-05-10] MEDS ORDERED: ASPIRIN 81 MG CHEW (CHILDREN'S ASA) ONE (22:43)
[2020-05-10] MEDS ORDERED: ENOXAPARIN 80 MG/0.8 ML (LOVENOX) SYR ONE (22:44)
[2020-05-10] MEDS ORDERED: VANCOMYCIN 1000 MG/VIAL ONE (22:44)
[2020-05-10] MEDS ORDERED: NS (IVPB) 250 ML ONE (22:44)
[2020-05-10] MEDS ORDERED: VANCOMYCIN INJECTION 1,000 MG in NS (IVPB) 250 ML IV ONE (22:45)
[2020-05-10] MEDS ORDERED: ONDANSETRON 4 MG/2 ML (SDV) Z0FRAN IV PRN (23:45)
--- NOTE | 2020-05-10 23:46 | NUR ---
UNABLE TO PRINT VITALS OBTAINED THROUGHOUT ER STAY D/T SPACELAB MONITOR MALFUNCTION.
[2020-05-11] MEDS ORDERED: fentaNYL INJECTION 100 MCG/2 ML AMP IV PRN (00:15)
[2020-05-11] MEDS: NS IV 1000 ML 1,000 ML IV SCH ×3 (00:15→18:35)
[2020-05-11] MEDS ORDERED: ACETAMINOPHEN 325 MG TABLET PO PRN (00:15)
[2020-05-11 03:16] LABS: EOSINOPHILS # (AUTO) 0.1 10^3/uL (0.0-0.3); EOSINOPHILS % (AUTO) 1 % (0-10); LYMPHOCYTES # (AUTO) 1.2 10^3/uL (1.0-4.0); MEAN CORPUSCULAR HEMOGLOBIN 31 pg (25-34)
[2020-05-11 03:18] LABS: BASOPHILS % (AUTO) 0 % (0-10); HEMATOCRIT 39 % (40-54); LYMPHOCYTES % (AUTO) 12 % (12-44); MEAN CORPUSCULAR HGB CONC 33 g/dL (32-36); MEAN CORPUSCULAR VOLUME 95 fL (80-99); MONOCYTES # (AUTO) 1.1 10^3/uL (0.0-1.0); MONOCYTES % (AUTO) 11 % (0-12); NEUTROPHILS # (AUTO) 7.7 10^3/uL (1.8-7.8); NEUTROPHILS % (AUTO) 76 % (42-75); PLATELET COUNT 138 10^3/uL (130-400); WHITE BLOOD COUNT 10.2 10^3/uL (4.3-11.0)
[2020-05-11 03:30] VITALS: BP 115/81
[2020-05-11 03:32] LABS: ALBUMIN 3.3 GM/DL (3.2-4.5); POTASSIUM 3.9 MMOL/L (3.6-5.0)
[2020-05-11 03:33] LABS: CALCIUM 8.5 MG/DL (8.5-10.1)
[2020-05-11 03:34] LABS: TOTAL PROTEIN 6.2 GM/DL (6.4-8.2)
[2020-05-11 03:36] LABS: BILIRUBIN,TOTAL 0.7 MG/DL (0.1-1.0)
[2020-05-11 03:37] LABS: PHOSPHORUS 2.2 MG/DL (2.3-4.7)
[2020-05-11 03:38] LABS: CREATININE SERUM 1.88 MG/DL (0.60-1.30)
[2020-05-11 03:41] LABS: MAGNESIUM 2.1 MG/DL (1.6-2.4)
[2020-05-11] MEDS ORDERED: RT-ALBUTEROL/IPRATROPIUM 3 ML (DUONEB) VIAL INH PRN (03:45)
[2020-05-11] MEDS: VANCOMYCIN INJECTION 750 MG in NS (IVPB) 250 ML IV SCH (08:41)
[2020-05-11] MEDS: ASPIRIN 81 MG CHEW (CHILDREN'S ASA) PO SCH (08:41)
--- NOTE | 2020-05-11 09:32 | Diagnostic Imaging Report ---
CHEST 1 VIEW, AP/PA ONLY Indication: Septic emboli Comparison: 05/10/2020 Findings: No consolidations have developed within the lungs. No pulmonary nodules are appreciated. Posterior lower lobes are poorly evaluated by portable radiography. No pleural effusion or pneumothorax. Stable cardiac silhouette. Impression: 1. No change within the lungs that would suggest septic emboli by radiography. Dictated by: Dictated on workstation # [id number]
--- NOTE | 2020-05-11 09:33 | History & Physical ---
History of Present Illness History of Present Illness Reason for visit/HPI 80 yo M admitted for concern for septic emboli. He had an MRI done 05/07/20 for confusion. See report below. Patient reports he has been having confusion and weakness lately. Sister and brother in law brought him to ER because they found him down at his house. She tried to call him but no answer. He remembers his phone ringing but he could not get to the phone in time. Patient notes along with his weakness he has confusion because he has the same flip phone for past 2 years and can not figure out how to call his brother for the past 2 days. Patient denies chest pain but later talks about how his chest feels on occassion: "like when you take a deep breath when you first walk into a house fire." A burning sensation. review of MRI from 05/07/20- IMPRESSION: 1. Chronic and senescent changes. There are also multiple tiny areas of diffusion restriction involving bilateral cerebral and bilateral cerebellar hemispheres consistent with acute/subacute microinfarcts. This may be owing to embolic phenomenon. No acute intracranial hemorrhage is identified. Date of Admission May 10, 2020 at 22:23 Date Seen by a Provider: May 11, 2020 Time Seen by a Provider: 10:45 I consulted on this patient on 05/11/20 09:27 Attending Physician Hola Tena MD Admitting Physician Virginie Isaac MD Consult Dr. Velez, cardiology Allergies and Home Medications Allergies Coded Allergies: No Known Drug Allergies (Unverified , 01/10/19) Home Medications Bisoprolol Fumarate 5 Mg Tablet, 7.5 MG PO BID, (Reported) take 1.5 of 5mg tab Glimepiride 2 Mg Tablet, 1 MG PO BID, (Reported) take 1/2 of 2mg tab Losartan Potassium 100 Mg Tablet, 100 MG PO DAILY, (Reported) Phenazopyridine HCl 200 Mg Tablet, 1 TAB PO TID Prescribed by: AKIKO CERRATO on 01/10/19919 Simvastatin 20 Mg Tablet, 20 MG PO DAILY, (Reported) Sulfamethoxazole/Trimethoprim 1 Each Tablet, 1 EACH PO BID WITH MEALS Prescribed by: AKIKO CERRATO on 01/10/19919 Tamsulosin HCl 0.4 Mg Cap, 0.4 MG PO DAILY@1900, (Reported) Patient Home Medication List Home Medication List Reviewed: Yes Past Pcawers-Oneujc-Szzoyk Hx Patient Social History Smoking Status: Never a Smoker 2nd Hand Smoke Exposure: No Recent Hopitalizations: No Have you traveled recently?: No Alcohol Use?: No Pt feels they are or have been: No Immunizations Up To Date Tetanus Booster (TDap): Unknown Pediatric: No Seasonal Allergies Seasonal Allergies: No Surgeries Yes (UMBILICAL HERNIA; CYSTOSCOPY/PROSTATE BIOPSY; BILATERAL CATARACT SURGERY) Abdominal, Eye Surgery Respiratory No Cardiovascular Yes High Cholesterol, Hypertension Neurological No Reproductive System Hx Reproductive Disorders: No Sexually Transmitted Disease: No HIV/AIDS: No Genitourinary Yes (PROSTATE CANCER DX 03/2018) Prostate Problems, Kidney Stones Gastrointestinal Yes (UMBILICAL HERNIA REPAIR; POST RADIATION DIARRHEA/INCONTINENCE) Musculoskeletal Yes Arthritis Endocrine History of Endocrine Disorders: Yes Endocrine Disorders: Diabetes, Non-Insulin dep HEENT History of HEENT Disorders: Yes (S/P BILATERAL CATARACT SURGERY) HEENT Disorders: Cataract Loss of Vision: Bilateral Hearing Impairment: Denies Cancer Yes Prostate, Skin Did You Recieve Any Treatments: Yes Type of Treatment: Radiation Psychosocial History of Psychiatric Problem: No Integumentary History of Skin or Integumenta: No Blood Transfusions History of Blood Disorders: No Adverse Reaction to a Blood Tr: No (N/A) Review of Systems Review of Systems General: No Chills, No Night Sweats HEENT: No Head Aches Pulmonary: No Dyspnea, No Cough Cardiovascular: No: Chest Pain, Palpitations Gastrointestinal: No: Nausea, Vomiting Genitourinary: No Dysuria Neurological: Weakness, Confusion Physical Exam Vital Signs Vital Signs - First Documented 05/10/20 19:56 Temp 36.0 Pulse 107 Resp 18 B/P (MAP) 134/81 (98) Pulse Ox 100 O2 Delivery Room Air Capillary Refill : Less Than 3 Seconds Height, Weight, BMI Height: 5'6.00" Weight: 171lbs. 0.0oz. 77.451578ei; 25.02 BMI Method:Estimated General Appearance: No Apparent Distress HEENT: PERRL/EOMI, Other (poor dentition) Neck: Non Tender, Supple Respiratory: Chest Non Tender, Lungs Clear Cardiovascular: Regular Rate, Rhythm (PVCs) Gastrointestinal: Normal Bowel Sounds, Non Tender, Soft Rectal: Deferred Back: Normal Inspection Extremity: Non Tender, No Calf Tenderness Neurologic/Psychiatric: Alert, Oriented x3 Skin: Warm/Dry Assessment/Plan Assessment/Plan Admission Dx concern for septic emboli Admission Status: Inpatient Order (span 2 midnights) Reason for Inpatient Admission: He will require 2 midnight stays- awaiting blood cultures and further workup of his multiple medical issues. He could decompensate quickly and since he lives alone at home it would be too late to intervene. Labs also pending may need trended. Assessment and Plan Concern for septic emboli- given his MRI Brain -CXR does not support this. Awaiting echo- likely will need RAY. Checking carotid U/S as well. -on rocephin 2g IV, vancomycin (pharm to dose, adjust for renal) awaiting blood cultures. -IVF -trend troponins, lovenox 1mg/kg, aspirin daily -weakness/confusion- likely due to recent strokes. Will consult PT. -sliding scale insulin. -Creatinine improved with IVF. Dispo: remain in ICU, could decompensate quickly. Hold on heart cath and working up possibly infective endocarditis. Problems: (1) Observation for suspected infectious endocarditis (2) Septic embolism Assessment & Plan: concern for (3) Acute on chronic kidney failure Qualifiers: Assessment & Plan: avoid nephrotoxic agents IVF (4) Compression fx, thoracic spine Assessment & Plan: MRI (5) DMII (diabetes mellitus, type 2) Assessment & Plan: holding home regimen -sliding scale insulin (6) BPH (benign prostatic hyperplasia) (7) Acute and subacute ischemic heart disease (8) Subacute ischemic heart disease HOLA TENA MD May 11, 2020 09:33
[2020-05-11] MEDS: inSUlin ASPART (NovoLOG) 1 UNIT/0.01 ML (CHARGE PER UNIT) SC SCH ×3 (11:09→23:53)
--- NOTE | 2020-05-11 14:11 | NUR ---
ATTEMPTED TO CALL PT'S SISTER, BRETT, TO PROVIDE UPDATE. SHE DID NOT ANSWER THE PHONE.
--- NOTE | 2020-05-11 14:58 | Consultation-Cardiology ---
HPI-Cardiology Cardiology Consultation: Date of Consultation 05/11/20 Date of Admission Attending Physician Hola Patel MD Admitting Physician Virginie Isaac MD Consulting Physician Danny GRAVES MD HPI: Time Seen by a Provider: 11:30 Chief Complaint: weakness, chest discomfort this is a 80 year old gentleman with confusion and weakness. Increasing forgetfulness. difficulty speaking. chest discomfort. mild shortness of breath. MRI on 05/07/20 shows possible numerous small strokes- ?emboli phenomenon. difficulty ambulating. Review of Systems-Cardiology Review of Systems Constitutional: As described under HPI; No As described under HPI, No no symptoms reported, No chills, No fever; lightheadedness, tiredness Eyes: No As described under HPI, No no symptoms reported, No blindness, No blurred vision, No contact lenses, No drainage, No decreased acuity, No foreign body sensation, No pain, No vision change Ears/Nose/Throat: No As described under HPI, No no symptoms reported, No chronic hearing loss, No ear discharge, No ear pain, No nasal drainage, No ulcerations Respiratory: No no symptoms reported; As described under HPI; No As described under HPI, No cough, No orthopnea, No shortness of breath, No SOB with excertion Cardiovascular: No no symptoms reported; As described under HPI; No As described under HPI; chest pain; No edema, No irregular heart rate, No lightheadedness, No palpitations Gastrointestinal: No no symptoms reported, No As described under HPI, No abdomen distended, No abdominal pain, No blood streaked bowels, No constipation, No diarrhea, No nausea, No vomiting, No stool coloration changes Genitourinary: No As described under HPI, No burning, No dysuria, No discharge, No frequency, No flank pain, No hematuria, No urgency Skin: No rash, No skin related problems, No ulcerations Psychiatric/Neurological: No anxiety, No depression, No seizure, No focal weakness, No syncope Hematologic: No bleeding abnormalities MND-Qswewu-Ppkpqs Hx Patient Social History Smoking Status: Never a Smoker 2nd Hand Smoke Exposure: No Have you traveled recently?: No Alcohol Use?: No Pt feels they are or have been: No Immunizations Up To Date Tetanus Booster (TDap): Unknown Past Medical History PMH As described under Assessment. Allergies and Home Medications Allergies Coded Allergies: No Known Drug Allergies (Unverified , 10/9/19) Home Medications Bisoprolol Fumarate 5 Mg Tablet, 7.5 MG PO BID, (Reported) take 1.5 of 5mg tab Glimepiride 2 Mg Tablet, 1 MG PO BID, (Reported) take 1/2 of 2mg tab Losartan Potassium 100 Mg Tablet, 100 MG PO DAILY, (Reported) Phenazopyridine HCl 200 Mg Tablet, 1 TAB PO TID Prescribed by: AKIKO CERRATO on 01/10/19919 Simvastatin 20 Mg Tablet, 20 MG PO DAILY, (Reported) Sulfamethoxazole/Trimethoprim 1 Each Tablet, 1 EACH PO BID WITH MEALS Prescribed by: AKIKO CERRATO on 01/10/19919 Tamsulosin HCl 0.4 Mg Cap, 0.4 MG PO DAILY@1900, (Reported) Patient Home Medication List Home Medication List Reviewed: Yes Physical Exam-Cardiology Physical Exam Vital Signs/I&O 05/11/20 05/11/20 05/11/20 05/11/20 03:30 04:00 05:00 06:00 Temp 37.1 Pulse 110 100 100 105 Resp 16 20 20 B/P (MAP) 119/65 (83) 121/71 (88) Pulse Ox 97 98 93 97 O2 Delivery Room Air Room Air Room Air 05/11/20 05/11/20 05/11/20 05/11/20 06:00 07:00 07:00 08:00 Temp 37.0 Pulse 105 95 99 Resp 20 22 B/P (MAP) Pulse Ox 97 92 O2 Delivery Room Air Room Air 05/11/20 05/11/20 05/11/20 05/11/20 08:00 08:00 09:00 10:00 Pulse 106 115 110 B/P (MAP) 121/80 (94) 124/71 (88) Pulse Ox 97 92 97 96 O2 Delivery Room Air Room Air Room Air Room Air 05/11/20 05/11/20 05/11/20 05/11/20 11:00 11:33 12:00 13:00 Temp 37.0 Pulse 114 111 98 B/P (MAP) 132/75 (94) 125/74 (91) 120/69 (86) Pulse Ox 97 97 97 O2 Delivery Room Air Room Air Room Air 05/11/20 05/11/20 13:00 15:04 Temp 36.8 Pulse 107 05/11/20 00:00 Intake Total 1020 ml Balance 1020 ml Capillary Refill : Less Than 3 Seconds Constitutional: appears stated age, AAO x 3; No apparent distress; well- developed, well-nourished HEENT: PERRL; No discharge; hearing is well preserved, oral hygience is good; No ulceration, No xanthelasmas are seen Neck: No carotid bruit; carotid pulses are 2 + bilaterally Respiratory: chest is bilaterally symmetric, lungs clear to auscultation Cardiovascular: regular rate-rhythm, S1 and S2 Gastrointestinal: soft, audible bowel sounds; No spleenomegaly Rectal: deferred Extremities: No clubbing, No cyanosis; no lower extremity edema bilateral; No significant edema Neurologic/Psychiatric: no motor/sensory deficits, alert, normal mood/affect, oriented x 3, power is 5/5 both on sides Skin: normal color Data Review Labs Laboratory Tests 05/10/20 20:07: White Blood Count 14.4H, Red Blood Count 5.21, Hemoglobin 16.1, Hematocrit 50, Mean Corpuscular Volume 95, Mean Corpuscular Hemoglobin 31, Mean Corpuscular Hemoglobin Concent 33, Red Cell Distribution Width 13.4, Platelet Count 176, Mean Platelet Volume 10.9, Immature Granulocyte % (Auto) 1, Neutrophils (%) (Auto) 85H, Lymphocytes (%) (Auto) 5L, Monocytes (%) (Auto) 9, Eosinophils (%) (Auto) 0, Basophils (%) (Auto) 0, Neutrophils # (Auto) 12.3H, Lymphocytes # (Auto) 0.7L, Monocytes # (Auto) 1.2H, Eosinophils # (Auto) 0.0, Basophils # (Auto) 0.1, Immature Granulocyte # (Auto) 0.1, Neutrophils % (Manual) 88, Lymphocytes % (Manual) 1, Monocytes % (Manual) 9, Eosinophils % (Manual) 0, Basophils % (Manual) 0, Band Neutrophils 0, Reactive Lymphocytes 2, Blood Morphology Comment NORMAL, Erythrocyte Sedimentation Rate 4, Prothrombin Time 15.3H, INR Comment 1.2, Activated Partial Thromboplast Time 30, D-Dimer > 20.00*H, Sodium Level 137, Potassium Level 4.4, Chloride Level 102, Carbon Dioxide Level 18L, Anion Gap 17H, Blood Urea Nitrogen 30H, Creatinine 2.41H, Estimat Glomerular Filtration Rate 26, BUN/Creatinine Ratio 12, Glucose Level 323H, Lactic Acid Level 3.00*H, Calcium Level 10.1, Corrected Calcium 9.9, Total Bilirubin 1.6H, Aspartate Amino Transf (AST/SGOT) 58H, Alanine Aminotransferase (ALT/SGPT) 34, Alkaline Phosphatase 86, Troponin I 26.276*H, C-Reactive Protein High Sensitivity 6.51H, Total Protein 8.0, Albumin 4.2 05/10/20 21:00: Coronavirus 2019 (JAYY) Negative 05/10/20 21:08: Urine Color ORANGE, Urine Clarity SL CLOUDY, Urine pH 5.0, Urine Specific [place] >=1.030, Urine Protein 2+H, Urine Glucose (UA) 2+H, Urine Ketones TRACEH , Urine Nitrite NEGATIVE, Urine Bilirubin 1+H, Urine Urobilinogen 1.0, Urine Leukocyte Esterase NEGATIVE, Urine RBC (Auto) 2+H, Urine RBC RARE, Urine WBC 0- 2, Urine Squamous Epithelial Cells NONE, Urine Crystals PRESENTH, Urine Amorphous Sediment FEW WINDY URATESH, Urine Bacteria MODERATEH, Urine Casts PRESENT, Urine Hyaline Casts 10-25H, Urine Granular Casts 5-10H, Urine Mucus SMALLH, Urine Culture Indicated YES 05/10/20 21:45: Lactic Acid Level 2.29*H 05/10/20 23:41: Lactic Acid Level 1.97 05/11/20 03:00: White Blood Count 10.2, Red Blood Count 4.16L, Hemoglobin 13.0L, Hematocrit 39L, Mean Corpuscular Volume 95, Mean Corpuscular Hemoglobin 31, Mean Corpuscular Hemoglobin Concent 33, Red Cell Distribution Width 13.4, Platelet Count 138, Mean Platelet Volume 11.0, Immature Granulocyte % (Auto) 1, Neutrophils (%) (Auto) 76H, Lymphocytes (%) (Auto) 12, Monocytes (%) (Auto) 11, Eosinophils (%) (Auto) 1, Basophils (%) (Auto) 0, Neutrophils # (Auto) 7.7, Lymphocytes # (Auto) 1.2, Monocytes # (Auto) 1.1H, Eosinophils # (Auto) 0.1, Basophils # (Auto) 0.0, Immature Granulocyte # (Auto) 0.1, Sodium Level 136, Potassium Level 3.9, Chloride Level 109H, Carbon Dioxide Level 17L, Anion Gap 10, Blood Urea Nitrogen 28H, Creatinine 1.88H, Estimat Glomerular Filtration Rate 35, BUN/Creatinine Ratio 15, Glucose Level 188H, Calcium Level 8.5, Corrected Calcium 9.1, Phosphorus Level 2.2L, Magnesium Level 2.1, Total Bilirubin 0.7, Aspartate Amino Transf (AST/SGOT) 41H, Alanine Aminotransferase (ALT/SGPT) 24, Alkaline Phosphatase 55, Total Creatine Kinase 298H, Troponin I 22.364*H, Total Protein 6.2L, Albumin 3.3 05/11/20 11:09: Glucometer 163H Microbiology 05/10/20 Blood Culture - Preliminary, Resulted No growth ECG Impression ECG Initial ECG Rhythm: S.Tach, PVC A/P-Cardiology Assessment/Admission Diagnosis strokes - ?embolic leucocytosis, lactic acidosis, dilated cardiomyopathy, NSTEMI Plan - strokes,?emboli - Echocardiogram shows severe LV dysfunction, dilated LV, mild aortic and mitral disease with no obvious vegetation. However TTE has moderate sensitivity to rule out infective endocarditis. If IE suspicion is high, then consider RAY. - NSTEMI - cath contraindicated due to possible stroke. start aspirin and Lovenox. likely plavix as well. - ?infection with leukocytosis and lactic acidosis. source unclear. Thank you for your consultation. Please call me if you have any questions. Kenyatta Graves MD, FACP, FACC, FSCAI, FHRS, CCDS Interventional Cardiology Cardiac Electrophysiology Vascular Medicine and Endovascular Interventions Danny GRAVES MD May 11, 2020 14:58
[2020-05-11] MEDS: CLOPIDOGREL 75 MG (PLAVIX) TABLET PO SCH (16:02)
--- NOTE | 2020-05-11 16:33 | NUR ---
THIS RN WAS ABLE TO CONTACT PT'S SISTER, BRETT. THIS RN PROVIDED UPDATE ON PT'S CURRENT DIAGNOSES AND PT STATUS. PT'S SISTER THANKFUL FOR UPDATE.
[2020-05-11] MEDS: ENOXAPARIN 80 MG/0.8 ML (LOVENOX) SYR SC SCH (20:44)
[2020-05-11] MEDS ORDERED: cefTRIAXone 1,000 MG/SWFI 10 ML IV PUSH IV SCH ×2 (21:00)
[2020-05-12 03:17] LABS: BASOPHILS # (AUTO) 0.1 10^3/uL (0.0-0.1); BASOPHILS % (AUTO) 1 % (0-10); EOSINOPHILS # (AUTO) 0.2 10^3/uL (0.0-0.3); EOSINOPHILS % (AUTO) 2 % (0-10); HEMATOCRIT 39 % (40-54); HEMOGLOBIN 12.7 g/dL (13.3-17.7); LYMPHOCYTES # (AUTO) 0.6 10^3/uL (1.0-4.0); LYMPHOCYTES % (AUTO) 6 % (12-44); MEAN CORPUSCULAR HEMOGLOBIN 31 pg (25-34); MEAN CORPUSCULAR HGB CONC 32 g/dL (32-36); MEAN CORPUSCULAR VOLUME 95 fL (80-99); MEAN PLATELET VOLUME 11.4 fL (9.0-12.2); MONOCYTES # (AUTO) 0.9 10^3/uL (0.0-1.0); MONOCYTES % (AUTO) 8 % (0-12); NEUTROPHILS # (AUTO) 9.3 10^3/uL (1.8-7.8); NEUTROPHILS % (AUTO) 84 % (42-75); PLATELET COUNT 182 10^3/uL (130-400); WHITE BLOOD COUNT 11.1 10^3/uL (4.3-11.0)
[2020-05-12 03:39] LABS: POTASSIUM 3.9 MMOL/L (3.6-5.0)
[2020-05-12 03:40] LABS: CALCIUM 8.6 MG/DL (8.5-10.1)
[2020-05-12 03:44] LABS: CREATININE SERUM 2.21 MG/DL (0.60-1.30); PHOSPHORUS 1.9 MG/DL (2.3-4.7)
[2020-05-12 03:46] LABS: MAGNESIUM 2.1 MG/DL (1.6-2.4)
--- NOTE | 2020-05-12 04:19 | Pulmonary Consultation ---
History of Present Illness History of Present Illness Date Seen by Provider: May 12, 2020 Time Seen by Provider: 04:14 Date of Admission History of Present Illness 80yo admitted 2/6 secondary to MS changes found to have sepsis. Allergies and Home Medications Allergies Coded Allergies: No Known Drug Allergies (Unverified , 01/10/19) Home Medications Bisoprolol Fumarate 5 Mg Tablet, 7.5 MG PO BID, (Reported) take 1.5 of 5mg tab Glimepiride 2 Mg Tablet, 1 MG PO BID, (Reported) take 1/2 of 2mg tab Losartan Potassium 100 Mg Tablet, 100 MG PO DAILY, (Reported) Phenazopyridine HCl 200 Mg Tablet, 1 TAB PO TID Prescribed by: AKIKO CERRATO on 01/10/19919 Simvastatin 20 Mg Tablet, 20 MG PO DAILY, (Reported) Sulfamethoxazole/Trimethoprim 1 Each Tablet, 1 EACH PO BID WITH MEALS Prescribed by: AKIKO CERRATO on 01/10/19919 Tamsulosin HCl 0.4 Mg Cap, 0.4 MG PO DAILY@1900, (Reported) Past Eqffxxw-Bkzrub-Uoqimo Hx Patient Social History Alcohol Use: Denies Use Smoking Status: Never a Smoker 2nd Hand Smoke Exposure: No Recent Infectious Disease Expo: No Recent Hopitalizations: No Have you traveled recently?: No Alcohol Use?: No Immunizations Up To Date Tetanus Booster (TDap): Unknown PED Vaccines UTD: No Seasonal Allergies Seasonal Allergies: No Past Medical History Surgeries: Yes (UMBILICAL HERNIA; CYSTOSCOPY/PROSTATE BIOPSY; BILATERAL CATARACT SURGERY) Abdominal, Eye Surgery Respiratory: No Cardiac: Yes High Cholesterol, Hypertension Neurological: No Reproductive Disorders: No Sexually Transmitted Disease: No HIV/AIDS: No Genitourinary: Yes (PROSTATE CANCER DX 03/2018) Prostate Problems, Kidney Stones Gastrointestinal: Yes (UMBILICAL HERNIA REPAIR; POST RADIATION DIARRHEA/INCONTINENCE) Musculoskeletal: Yes Arthritis Endocrine: Yes Diabetes, Non-Insulin dep HEENT: Yes (S/P BILATERAL CATARACT SURGERY) Cataract Loss of Vision: Bilateral Hearing Impairment: Denies Cancer: Yes Prostate, Skin Did You Recieve Any Treatments: Yes What Type of Treatment Did You: Radiation Psychosocial: No Integumentary: No Blood Disorders: No Adverse Reaction/Blood Tranf: No (N/A) Sepsis Event Evaluation Height, Weight, BMI Height: 5'6.00" Weight: 171lbs. 0.0oz. 77.913336cr; 25.02 BMI Method:Estimated Exam Exam Vital Signs Date Time Temp Pulse Resp B/P (MAP) Pulse Ox O2 Delivery O2 Flow Rate FiO2 05/12/20 01:00 116 05/11/20 23:10 120 97 Room Air 05/11/20 22:10 116 27 125/69 (82) 96 Room Air 05/11/20 21:10 115 125/67 (82) 97 Room Air 05/11/20 20:10 111 126/66 (90) 97 Room Air 05/11/20 20:00 92 Room Air 05/11/20 19:10 113 129/72 (87) 98 Room Air 05/11/20 19:00 117 05/11/20 18:00 109 122/68 (86) 99 Room Air 05/11/20 17:00 113 128/67 (87) 96 Room Air 05/11/20 16:00 113 127/76 (93) 98 Room Air 05/11/20 15:04 36.8 05/11/20 15:00 123 96 Room Air 05/11/20 14:00 103 126/70 (88) 96 Room Air 05/11/20 13:00 107 05/11/20 13:00 98 120/69 (86) 97 Room Air 05/11/20 12:00 111 125/74 (91) 97 Room Air 05/11/20 11:33 37.0 05/11/20 11:00 114 132/75 (94) 97 Room Air 05/11/20 10:00 110 124/71 (88) 96 Room Air 05/11/20 09:00 115 121/80 (94) 97 Room Air 05/11/20 08:00 92 Room Air 05/11/20 08:00 106 97 Room Air 05/11/20 08:00 37.0 05/11/20 07:00 99 05/11/20 07:00 95 22 92 Room Air 05/11/20 06:00 105 20 97 Room Air 05/11/20 06:00 105 20 121/71 (88) 97 Room Air 05/11/20 05:00 100 20 93 Room Air I & O 05/12/20 07:00 Intake Total 2197.5 ml Output Total 0 ml Balance 2197.5 ml Height & Weight Height: 5'6.00" Weight: 171lbs. 0.0oz. 77.926824db; 25.02 BMI Method:Estimated General Appearance: No Apparent Distress HEENT: PERRL/EOMI, Other (poor dentition) Neck: Non Tender, Supple Respiratory: Chest Non Tender, Lungs Clear Cardiovascular: Regular Rate, Rhythm (PVCs) Capillary Refill: Less Than 3 Seconds Peripheral Pulses: 2+ Dorsalis Pedis (R), 2+ Left Dors-Pedis (L), 2+ Radial Pulses (R), 2+ Radial Pulses (L) Extremity: Non Tender, No Calf Tenderness Neurologic/Psychiatric: Alert, Oriented x3 Skin: Warm/Dry Results Lab Laboratory Tests 05/10/20 20:07 05/11/20 03:00 05/12/20 02:22 Assessment/Plan Assessment/Plan Acute sepsis possible infectious endocarditis -Currently on Vancomycin and rocephin -Cardiology following NSTEMI -Cardiology following Metabolic lactic acidosis -IVF -Monitor Hypophos -replace CHF with EF of 20-25% Septic emboli per brain MRI Acute on chronic renal failure DM II Compression fx of thoracic spine CAD JESS GRIFFIN DO May 12, 2020 04:19
[2020-05-12] MEDS: inSUlin ASPART (NovoLOG) 1 UNIT/0.01 ML (CHARGE PER UNIT) SC SCH ×3 (05:41→16:07)
[2020-05-12] MEDS: LACTATED RINGERS 1,000 ML IV SCH ×4 (05:42→22:17)
--- NOTE | 2020-05-12 07:38 | Diagnostic Imaging Report ---
INDICATION: Septic emboli. COMPARISON: 05/11/2020 FINDINGS: Single frontal radiograph view of the chest was obtained and shows normal cardiac silhouette. Lungs show interval development of diffuse coarse interstitial prominence. There is no large effusion or pneumothorax. Osseous structures show no acute adverse interval change. IMPRESSION: 1. Interval development of diffuse coarse prominence of interstitium, which may be on the basis of developing interstitial pulmonary edema or pneumonia. Follow-up is advised. Dictated by: Dictated on workstation # [id number]
[2020-05-12] MEDS ORDERED: SODIUM PHOSPHATE INJ 15 MM in D5W 100 ML IVPB 100 ML IV ONE (08:00)
[2020-05-12] MEDS: VANCOMYCIN INJECTION 750 MG in NS (IVPB) 250 ML IV SCH (08:22)
[2020-05-12] MEDS: ASPIRIN 81 MG CHEW (CHILDREN'S ASA) PO SCH (08:22)
[2020-05-12] MEDS: CLOPIDOGREL 75 MG (PLAVIX) TABLET PO SCH (08:23)
--- NOTE | 2020-05-12 08:24 | Progress Note ---
Subjective Subjective Date Seen by Provider: May 12, 2020 Time Seen by Provider: 08:10 PT REPORTS THAT HE IS TIRED OF LAYING IN BED, WOULD LIKE TO GO HOME SOON POSSIBLE. HE REMEMBERS FALLING OUT OF BED AT HOME, DOES NOT REMEMBER ANY OF THE OTHER SURROUNDING EVENTS LEADING UP TO HIS HOSPITALIZATION. 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 Review of Systems General: No Chills; Fatigue, Other (WEIGHT LOSS) HEENT: No Head Aches, No Visual Changes, No Dysphasia Pulmonary: No Dyspnea, No Cough Cardiovascular: No: Chest Pain, Palpitations Gastrointestinal: No: Nausea, Abdominal Pain Genitourinary: No Dysuria; Frequency Neurological: Weakness, Confusion All Other Systems Reviewed All Other Systems Reviewed: Yes Objective Exam Vital Signs Vital Signs - First Documented 05/10/20 19:56 Temp 36.0 Pulse 107 Resp 18 B/P (MAP) 134/81 (98) Pulse Ox 100 O2 Delivery Room Air Capillary Refill : Less Than 3 Seconds General Appearance: No Apparent Distress Eyes: Bilateral Eye Normal Inspection, Bilateral Eye PERRL, Bilateral Eye EOMI HEENT: PERRL/EOMI, Other (poor dentition) Neck: Non Tender, Supple Respiratory: Chest Non Tender, Lungs Clear, Normal Breath Sounds, No Respiratory Distress Cardiovascular: Regular Rate, Rhythm (PVCs), Normal Peripheral Pulses Gastrointestinal: Normal Bowel Sounds, Non Tender, Soft Rectal: Deferred Back: Normal Inspection Extremity: Non Tender, No Calf Tenderness Neurologic/Psychiatric: Alert, Oriented x3, No Motor/Sensory Deficits, Normal 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, 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 Norm as Tested Skin: Normal Color, Warm/Dry Lymphatic: No Adenopathy Results Lab Laboratory Tests 05/11/20 11:09: Glucometer 163H 05/11/20 17:45: Glucometer 199H 05/11/20 23:26: Glucometer 169H 05/12/20 02:22: White Blood Count 11.1H, Red Blood Count 4.12L, Hemoglobin 12.7L, Hematocrit 39L , Mean Corpuscular Volume 95, Mean Corpuscular Hemoglobin 31, Mean Corpuscular Hemoglobin Concent 32, Red Cell Distribution Width 13.9, Platelet Count 182, Mean Platelet Volume 11.4, Immature Granulocyte % (Auto) 0, Neutrophils (%) (Auto) 84H, Lymphocytes (%) (Auto) 6L, Monocytes (%) (Auto) 8, Eosinophils (%) (Auto) 2, Basophils (%) (Auto) 1, Neutrophils # (Auto) 9.3H, Lymphocytes # ( Auto) 0.6L, Monocytes # (Auto) 0.9, Eosinophils # (Auto) 0.2, Basophils # (Auto) 0.1, Immature Granulocyte # (Auto) 0.0, Sodium Level 135, Potassium Level 3.9, Chloride Level 107, Carbon Dioxide Level 17L, Anion Gap 11, Blood Urea Nitrogen 31H, Creatinine 2.21H, Estimat Glomerular Filtration Rate 29, BUN/Creatinine Ratio 14, Glucose Level 263H, Calcium Level 8.6, Phosphorus Level 1.9L, Magnesiu m Level 2.1 Microbiology 05/10/20 MRSA Screen - Final, Complete MRSA not isolated 05/10/20 Blood Culture - Preliminary, Resulted No growth Assessment/Plan Assessment/Plan Problems: (1) Observation for suspected infectious endocarditis (2) Septic embolism Assessment & Plan: POSSIBLE SEPTIC EMBOLI - WILL ASK CARDIOLOGY TO PERFORM RAY (3) Acute on chronic kidney failure Qualifiers: Assessment & Plan: CONTINUE WITH IV FLUIDS, MONITOR LABS (4) Acute and subacute ischemic heart disease Assessment & Plan: NSTEMI - GROSSLY ELEVATED TROPONIN, MONITOR LABS, DEFER TO CARDIOLOGY (5) DMII (diabetes mellitus, type 2) Qualifiers: Qualified Codes: E11.22 - Type 2 diabetes mellitus with diabetic chronic kidney disease; N18.32 - Chronic kidney disease, stage 3b Assessment & Plan: SLIDING SCALE B (6) BPH (benign prostatic hyperplasia) (7) Subacute ischemic heart disease (8) Compression fx, thoracic spine RANDI VIGIL MD May 12, 2020 08:24
[2020-05-12] MEDS: PANTOPRAZOLE 40 MG (PROTONIX) VIAL IV SCH (08:44)
[2020-05-12] MEDS: cefTRIAXone FOR IV USE 2,000 MG in WATER (STERILE) FOR INJECTION 20 ML IV SCH ×2 (12:01→23:06)
--- NOTE | 2020-05-12 12:11 | Progress Note - Cardiology ---
Cardiology SOAP Progress Note Subjective: Lying in bed Oriented to self Conversation at times is not appropriate to situation Stated he did not know how he got here or where he was Stated he wondered if experiments were being done on him because no one tells him anything Objective: I&O/Vital Signs 05/12/20 05/12/20 05/12/20 05/12/20 01:00 01:00 02:12 03:00 Pulse 116 116 111 113 B/P (MAP) 131/79 (101) 121/70 (90) 122/66 (90) Pulse Ox 95 95 95 O2 Delivery Room Air Room Air Room Air 05/12/20 05/12/20 05/12/20 05/12/20 04:00 05:00 06:00 07:46 Temp 37.3 Pulse 113 112 110 B/P (MAP) 124/80 (95) 116/73 (87) 120/65 (83) Pulse Ox 96 97 95 O2 Delivery Room Air Room Air Room Air 05/12/20 05/12/20 05/12/20 05/12/20 08:24 08:30 09:00 10:00 Pulse 115 110 Resp 27 B/P (MAP) 121/80 (94) 124/71 (88) Pulse Ox 97 97 97 96 O2 Delivery Room Air Room Air Room Air Room Air 05/12/20 05/12/20 11:00 12:00 Pulse 112 108 B/P (MAP) 117/68 (84) 123/74 (90) Pulse Ox 93 94 O2 Delivery Room Air Room Air 05/12/20 00:00 Intake Total 1840 ml Output Total 0 ml Balance 1840 ml Weight (Pounds): 171 Weight (Ounces): 0.0 Weight (Calculated Kilograms): 77.840258 Constitutional: appears stated age; No apparent distress; well-developed, well- nourished Respiratory: chest is bilaterally symmetric, lungs clear to auscultation Cardiovascular: regular rate-rhythm, S1 and S2 Gastrointestional: No tender; soft, audible bowel sounds Extremities: No clubbing, No significant edema Neurologic/Psychiatric: other (Oriented to self only), grossly intact (moves all extremities) Skin: normal color Results/Procedures: Labs Laboratory Tests 05/11/20 17:45: Glucometer 199H 05/11/20 23:26: Glucometer 169H 05/12/20 02:22: White Blood Count 11.1H, Red Blood Count 4.12L, Hemoglobin 12.7L, Hematocrit 39L , Mean Corpuscular Volume 95, Mean Corpuscular Hemoglobin 31, Mean Corpuscular Hemoglobin Concent 32, Red Cell Distribution Width 13.9, Platelet Count 182, Mean Platelet Volume 11.4, Immature Granulocyte % (Auto) 0, Neutrophils (%) (Auto) 84H, Lymphocytes (%) (Auto) 6L, Monocytes (%) (Auto) 8, Eosinophils (%) (Auto) 2, Basophils (%) (Auto) 1, Neutrophils # (Auto) 9.3H, Lymphocytes # (Auto) 0.6L, Monocytes # (Auto) 0.9, Eosinophils # (Auto) 0.2, Basophils # (Auto) 0.1, Immature Granulocyte # (Auto) 0.0, Sodium Level 135, Potassium Level 3.9, Chloride Level 107, Carbon Dioxide Level 17L, Anion Gap 11, Blood Urea Nitrogen 31H, Creatinine 2.21H, Estimat Glomerular Filtration Rate 29, BUN/Creatinine Ratio 14, Glucose Level 263H, Calcium Level 8.6, Phosphorus Level 1.9L, Magnesium Level 2.1 05/12/20 10:55: Glucometer 110 Microbiology 05/10/20 MRSA Screen - Final, Complete MRSA not isolated 05/10/20 Blood Culture - Preliminary, Resulted No growth 05/10/20 Urine Culture - Final, Complete Gram Pos Mixed Bacterial Lindsay Laboratory Tests 05/10/20 20:07 05/11/20 03:00 05/12/20 02:22 Procedures NAME: [facility] REC#: [id number] PT STATUS: ADM IN : 1940 PHYSICIAN: KANG TENA MD ADMIT DATE: 05/10/20/ICU Signed Date of Exam:05/12/20 CHEST 1 VIEW, AP/PA ONLY INDICATION: Septic emboli. COMPARISON: 05/11/2020 FINDINGS: Single frontal radiograph view of the chest was obtained and shows normal cardiac silhouette. Lungs show interval development of diffuse coarse interstitial prominence. There is no large effusion or pneumothorax. Osseous structures show no acute adverse interval change. IMPRESSION: 1. Interval development of diffuse coarse prominence of interstitium, which may be on the basis of developing interstitial pulmonary edema or pneumonia. Follow-up is advised. Dictated by: Dictated on workstation # [id number] Dict: 05/12/20 0727 Trans: 05/12/20 1130 [id number] Interpreted by: MARTA BIRD MD Electronically signed by: MARTA BIRD MD 05/12/20 113 A/P: Assessment: UTI with sepsis Embolic strokes of undetermined etiology MRI of 05-07-20: Chronic and senescent changes. There are also multiple tiny areas of diffusion restriction involving bilateral cerebral and bilateral cereb ellar hemispheres consistent with acute/subacute microinfarcts. This may be owing to embolic phenomenon. No acute intracranial hemorrhage is identified. Echocardiogram of May 11, [address] Velez shows LVEF 20-25%. Akinesis of the apical myocardium, hypokinesis of the entire anterior, apical inferior, basal- mid anterolateral, apical septal, and apical lateral myocardium. Mid MR with no vegetations noted. Mild AoV stenosisi with mild regurg, no vegetations noted. PASP 30-45mmHg NSTEMI - cath contraindicated due to possible stroke. start aspirin and Lovenox. likely plavix as well CKD - stage 3 Plan: UTI with sepsis - management per medical services Acute on CKD - continue IVF hydration Confusion of undetermined etiology - medical services managing Embolic infarcts of undetermined etiology seen on recent MRI - no vegetations seen on trans-thoracic echo - RAY will be considered NSTEMI - no c/o CP - treat with DAPT and Lovenox - cardiac cath advisable, but will allow time for improvement of renal function and treatment of sepsis Continue current medication regimen We have reviewed Dr. Velez's notes from the weekend I have spoken with Dr. Isaac who would like EWA GIMENEZ May 12, 2020 12:10
--- NOTE | 2020-05-12 13:23 | NUR ---
RD ASSESSMENT PMHx: hypercholesterolemia; HTN; DM; CA(prostate,skin); PT INTERACTION: Pt was awake and pleasant during nutrition assessment. Note pt has hx of AMS, per chart review. Pt states current appetite is poor. Note avg PO intake 75% x2meal, per chart review. Pt states following a regular diet at home, and has no issues with chewing/swallowing food. Pt states no recent issues with n/v/c/d. Note last BM was 05/12, and pt not currently on bowel regimen per chart review. Pt states recent 15# wt loss x6mon. Note unable to determine recent wt hx, per chart review. When asked about current DM management: "It was fine until recently, when it all fell apart." Note unable to determine recent HbA1c, per chart review. Est. kcal needs: 1129-8952 kcal | 20-25 kcal/kg Est. Pro needs: 62-77 g Pro | 0.8-1.0 g Pro/kg PES STATEMENT: Given current PO intake, no nutrition diagnosis at this time (NO-1.1). INTERVENTION: Continue with current diet order of Heart Healthy diet. Pt may benefit from consistent CHO restriction if blood glucose levels become elevated. Offered diet education on DM management, but pt declined at this time. May attempt to offer again prior to discharge. Will continue to follow and reassess as pt needs, intake, and status change. Mayank EATON, MS RD LD [phone] cell
[2020-05-12] MEDS ORDERED: AMLO-251 PO (14:22)
[2020-05-12] MEDS ORDERED: ERGO50006 PO (14:22)
[2020-05-12] MEDS ORDERED: LORA-404 PO (14:22)
[2020-05-12] MEDS ORDERED: ASPI-1238 PO (14:28)
[2020-05-12] MEDS ORDERED: CLOP75TA28 PO (14:28)
--- NOTE | 2020-05-12 14:29 | NUR ---
SPOKE WITH THE PT, GOT A MED LIST FROM DR. SORIA, CALLED [facility] AND WENT THRU THE EXT MED HISTORY TO COMPLETE THE MED REC PT COULD NOT REMEMBER THE NAMES OF HIS MEDICATIONS OR HOW HE TOOK EACH- AFTER I GOT THE MED LIST FROM HIS PCP I RETURNED TO THE PTS ROOM AND WENT OVER EACH MED WITH HIM. PT WAS STILL UNSURE BUT COMMENTED THAT HE THINKS DR. SORIA LIST IS RIGHT REGARDING HOW HE TAKES EACH MED OTC MEDS: ASPIRIN 81MG
--- NOTE | 2020-05-12 16:07 | NUR ---
CM/SS visited with the patient for a social service consult. The patient was lying in bed at time of visit. He was pleasant and willing to discuss discharge planning. The patient recognized this sw after a name was stated. He was alert and oriented x3 at time of visit. Home: The patient lives at home alone. He reports that he is independent with his ADL'S with no assistance. Home Health: CM/SS discussed the possibility of home health when able to discharge. CM/SS explained the services home health offers and the benefits. He reports that at this time he is not interested but he would be willing to discuss it again at a later time. Equipment: Denies having any at this time. Supports: The patient reports that he has a good support system with his sister Lian and his brother. The patient reports that he is too young to and he is not ready yet. He appeared to be quite concerned with what his diagnosis is and stated they have done "so many test, they should know something". CM/SS will continue to follow.
--- NOTE | 2020-05-12 16:35 | Diagnostic Imaging Report ---
EXAMINATION: MRI thoracic spine w/o con. TECHNIQUE: Multiplanar, multisequence imaging of the thoracic spine was performed without contrast. INDICATION: Back pain after fall out of bed. COMPARISON: None available. FINDINGS: Normal kyphosis of the thoracic spine. No bone marrow edema that would indicate compression fracture within the thoracic vertebrae. No injury of the anterior or posterior longitudinal ligaments. Ligamentum flavum is intact. No interspinous edema. No epidural fluid collection that would suggest hematoma. There is abnormal T2 hyperintense signal within the central aspect of the upper thoracic cord posterior to T2 and T3 extending over a craniocaudal length of 3.2 cm. Portions of this abnormal increased T2 hyperintense signal within the cord are likely due to a small amount of fluid distending the central canal. However, there is some abnormal signal in the adjacent intramedullary portion of the thoracic cord. There is no cord expansion present. No features of discitis-osteomyelitis. No paravertebral abscess. IMPRESSION: 1. No fracture in the thoracic spine. 2. No discitis-osteomyelitis. 3. Incidental note of thin elongated T2 hyperintense signal within the upper thoracic cord from T2-T3. 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 However, since there is no imaging to document long-term stability, as patient condition permits, follow-up postcontrast MRI of the thoracic spine is recommended to exclude the low probability of a neoplasm. Dictated by: Dictated on workstation # [id number]
--- NOTE | 2020-05-12 17:40 | NUR ---
This RN in room with pt and pt sister. Pt voiced that he wants to be a full code, he wants to have everything done at this time.
--- NOTE | 2020-05-12 17:45 | Progress Note - Cardiology ---
Cardiology SOAP Progress Note Subjective: Does not report cp or palp or syncope or shortness of breath Does not report weakness Does not report n/v/d Objective: I&O/Vital Signs 05/12/20 05/12/20 05/12/20 05/12/20 06:00 06:40 07:46 08:24 Temp 37.3 Pulse 110 113 B/P (MAP) 120/65 (83) Pulse Ox 95 97 O2 Delivery Room Air Room Air 05/12/20 05/12/20 05/12/20 05/12/20 08:30 09:00 10:00 11:00 Pulse 115 110 112 Resp 27 B/P (MAP) 121/80 (94) 124/71 (88) 117/68 (84) Pulse Ox 97 97 96 93 O2 Delivery Room Air Room Air Room Air Room Air 05/12/20 05/12/20 05/12/20 05/12/20 12:00 12:37 13:00 15:00 Pulse 108 106 112 118 Resp 23 14 B/P (MAP) 123/74 (90) 144/100 (115) Pulse Ox 94 93 O2 Delivery Room Air Room Air Room Air 05/12/20 05/12/20 16:00 16:10 Temp 36.8 Pulse 114 Resp 10 B/P (MAP) 120/81 (94) Pulse Ox 95 O2 Delivery Room Air 05/12/20 00:00 Intake Total 1840 ml Output Total 0 ml Balance 1840 ml Weight (Pounds): 171 Weight (Ounces): 0.0 Weight (Calculated Kilograms): 77.551332 Constitutional: appears stated age; No apparent distress; well-developed, well- nourished Respiratory: chest is bilaterally symmetric, lungs clear to auscultation Cardiovascular: regular rate-rhythm, S1 and S2 Gastrointestional: No tender; soft, audible bowel sounds Extremities: No clubbing, No significant edema Neurologic/Psychiatric: other (Variable orientation, intermittently confused, seems to be able to move all limbs) Skin: normal color Results/Procedures: Labs Laboratory Tests 05/11/20 17:45: Glucometer 199H 05/11/20 23:26: Glucometer 169H 05/12/20 02:22: White Blood Count 11.1H, Red Blood Count 4.12L, Hemoglobin 12.7L, Hematocrit 39L , Mean Corpuscular Volume 95, Mean Corpuscular Hemoglobin 31, Mean Corpuscular Hemoglobin Concent 32, Red Cell Distribution Width 13.9, Platelet Count 182, Mean Platelet Volume 11.4, Immature Granulocyte % (Auto) 0, Neutrophils (%) (Auto) 84H, Lymphocytes (%) (Auto) 6L, Monocytes (%) (Auto) 8, Eosinophils (%) (Auto) 2, Basophils (%) (Auto) 1, Neutrophils # (Auto) 9.3H, Lymphocytes # (Auto) 0.6L, Monocytes # (Auto) 0.9, Eosinophils # (Auto) 0.2, Basophils # (Auto) 0.1, Immature Granulocyte # (Auto) 0.0, Sodium Level 135, Potassium Level 3.9, Chloride Level 107, Carbon Dioxide Level 17L, Anion Gap 11, Blood Urea Nitrogen 31H, Creatinine 2.21H, Estimat Glomerular Filtration Rate 29, BUN/Creatinine Ratio 14, Glucose Level 263H, Calcium Level 8.6, Phosphorus Level 1.9L, Magnesium Level 2.1 05/12/20 10:55: Glucometer 110 Microbiology 05/11/20 Blood Culture - Preliminary, Resulted No growth 05/10/20 MRSA Screen - Final, Complete MRSA not isolated 05/10/20 Urine Culture - Final, Complete Gram Pos Mixed Bacterial Lindsay Laboratory Tests 05/10/20 20:07 05/11/20 03:00 05/12/20 02:22 A/P: Assessment: UTI with sepsis Embolic strokes of undetermined etiology - MRI of 05-07-20: Chronic and senescent changes. There are also multiple tiny areas of diffusion restriction involving bilateral cerebral and bilateral cerebellar hemispheres consistent with acute/subacute microinfarcts. This may be owing to embolic phenomenon. No acute intracranial hemorrhage is identified. NSTEMI and cardiomyopathy - Echocardiogram of May 11, [address] Velez shows LVEF 20-25%. Akinesis of the apical myocardium, hypokinesis of the entire anterior, apical inferior, basal-mid anterolateral, apical septal, and apical lateral myocardium. Mid MR with no vegetations noted. Mild AoV stenosisi with mild regurg, no vegetations noted. PASP 30-45mmHg Ac kidney injury superimposed on CKD 3 Plan: Complex managment due to multiple comorbidities. Condition appears unstable, including his mental status RAY because Med Svce is suspecting endocarditis as the source of brain emboli Would need cardiac cath, but awaiting improvement of renal function and stabilization of sepsis Monitor labs JOSE SANTOYO MD FACP FACC CCDS May 12, 2020 17:45
[2020-05-12] MEDS: ENOXAPARIN 80 MG/0.8 ML (LOVENOX) SYR SC SCH (21:09)
[2020-05-13] MEDS: inSUlin ASPART (NovoLOG) 1 UNIT/0.01 ML (CHARGE PER UNIT) SC SCH ×2 (01:13→05:07)
[2020-05-13 03:44] LABS: BASOPHILS # (AUTO) 0.1 10^3/uL (0.0-0.1); BASOPHILS % (AUTO) 1 % (0-10); EOSINOPHILS # (AUTO) 0.3 10^3/uL (0.0-0.3); EOSINOPHILS % (AUTO) 3 % (0-10); HEMATOCRIT 38 % (40-54); HEMOGLOBIN 12.3 g/dL (13.3-17.7); LYMPHOCYTES # (AUTO) 0.6 10^3/uL (1.0-4.0); LYMPHOCYTES % (AUTO) 7 % (12-44); MEAN CORPUSCULAR HEMOGLOBIN 31 pg (25-34); MEAN CORPUSCULAR HGB CONC 32 g/dL (32-36); MEAN CORPUSCULAR VOLUME 96 fL (80-99); MEAN PLATELET VOLUME 11.2 fL (9.0-12.2); MONOCYTES # (AUTO) 0.6 10^3/uL (0.0-1.0); MONOCYTES % (AUTO) 7 % (0-12); NEUTROPHILS # (AUTO) 7.5 10^3/uL (1.8-7.8); NEUTROPHILS % (AUTO) 82 % (42-75); PLATELET COUNT 191 10^3/uL (130-400); WHITE BLOOD COUNT 9.1 10^3/uL (4.3-11.0)
[2020-05-13 04:03] LABS: CALCIUM 8.5 MG/DL (8.5-10.1)
[2020-05-13 04:08] LABS: CREATININE SERUM 1.88 MG/DL (0.60-1.30); PHOSPHORUS 2.3 MG/DL (2.3-4.7)
[2020-05-13 04:10] LABS: MAGNESIUM 2.1 MG/DL (1.6-2.4)
--- NOTE | 2020-05-13 04:30 | Pulmonary Progress Note ---
Subjective Time Seen by a Provider: 04:29 Subjective/Events-last exam RAY planned for today. Sepsis Event Evaluation Height, Weight, BMI Height: 5'6.00" Weight: 171lbs. 0.0oz. 77.014475nl; 25.02 BMI Method:Estimated Focused Exam Lactate Level 05/10/20 20:07: Lactic Acid Level 3.00*H 05/10/20 21:45: Lactic Acid Level 2.29*H 05/10/20 23:41: Lactic Acid Level 1.97 Time of Focused Exam: 22:42 Exam Exam Vital Signs Date Time Temp Pulse Resp B/P (MAP) Pulse Ox O2 Delivery O2 Flow Rate FiO2 05/13/20 04:00 37.2 05/13/20 02:00 102 122/76 (91) 97 Nasal Cannula 2.00 05/13/20 01:20 Nasal Cannula 2.00 05/13/20 01:00 114 05/13/20 01:00 114 126/77 (93) 93 Room Air 05/13/20 00:00 36.9 05/12/20 23:00 104 113/65 (81) 96 Room Air 05/12/20 22:00 88 105/68 (80) 93 Room Air 05/12/20 21:00 110 119/84 (96) 92 Room Air 05/12/20 20:00 95 Room Air 05/12/20 20:00 93 110/65 (80) 92 Room Air 05/12/20 19:28 37.1 05/12/20 19:00 115 143/76 (98) 92 Room Air 05/12/20 19:00 115 05/12/20 18:00 134 6 132/82 (99) 90 Room Air 05/12/20 17:00 103 6 127/73 (91) 94 Room Air 05/12/20 16:10 36.8 05/12/20 16:00 114 10 120/81 (94) 95 Room Air 05/12/20 15:00 118 14 144/100 (115) Room Air 05/12/20 13:00 112 23 93 Room Air 05/12/20 12:37 106 05/12/20 12:00 108 123/74 (90) 94 Room Air 05/12/20 11:00 112 117/68 (84) 93 Room Air 05/12/20 10:00 110 27 124/71 (88) 96 Room Air 05/12/20 09:00 115 121/80 (94) 97 Room Air 05/12/20 08:30 97 Room Air 05/12/20 08:24 97 Room Air 05/12/20 07:46 37.3 05/12/20 06:40 113 05/12/20 06:00 110 120/65 (83) 95 Room Air 05/12/20 05:00 112 116/73 (87) 97 Room Air I & O 05/13/20 07:00 Intake Total 2375 ml Balance 2375 ml Height & Weight Height: 5'6.00" Weight: 171lbs. 0.0oz. 77.643566mh; 25.02 BMI Method:Estimated General Appearance: No Apparent Distress HEENT: PERRL/EOMI, Other (poor dentition) Neck: Non Tender, Supple Respiratory: Chest Non Tender, Lungs Clear Cardiovascular: Regular Rate, Rhythm (PVCs) Capillary Refill: Less Than 3 Seconds Peripheral Pulses: 2+ Dorsalis Pedis (R), 2+ Left Dors-Pedis (L), 2+ Radial Pulses (R), 2+ Radial Pulses (L) Extremity: Non Tender, No Calf Tenderness Neurologic/Psychiatric: Alert, Oriented x3 Skin: Warm/Dry Results Lab Laboratory Tests 05/12/20 02:22 05/13/20 03:02 Assessment/Plan Assessment/Plan Acute sepsis possible infectious endocarditis -Currently on Vancomycin and rocephin -Cardiology following -RAY planned for today NSTEMI -Cardiology following Metabolic lactic acidosis -IVF -Monitor Hypophos -replace CHF with EF of 20-25% Septic emboli per brain MRI Acute on chronic renal failure DM II Compression fx of thoracic spine CAD JESS GRIFFIN DO May 13, 2020 04:30
[2020-05-13] MEDS ORDERED: morphine INJ 4 MG/ML 1 ML (VIAL/SYRINGE) ONE (06:39)
[2020-05-13] MEDS ORDERED: meTOproloL SUCCINATE 50 MG (TOPROL XL) TAB PO ONE (06:39)
[2020-05-13] MEDS ORDERED: NITROGLYCERIN 0.4 MG SL TABS BTL 25'S SL ONE (06:39)
[2020-05-13] MEDS ORDERED: morphine INJ 10 MG/ML 1ML (SYR OR VIAL) IVP STA (06:46)
[2020-05-13] MEDS ORDERED: NITROGLYCERIN 0.4 MG SL TABS BTL 25'S SL PRN (07:00)
[2020-05-13] MEDS ORDERED: morphine INJ 10 MG/ML 1ML (SYR OR VIAL) IVP PRN (07:00)
[2020-05-13] MEDS ORDERED: morphine INJ 4 MG/ML 1 ML (VIAL/SYRINGE) IVP PRN (07:00)
[2020-05-13] MEDS ORDERED: TROUGH ORDER-PHARMACY XX NR (08:00)
[2020-05-13] MEDS: NITROGLYCERIN 0.4 MG SL TABS BTL 25'S SL PRN ×3 (08:00→09:41)
[2020-05-13] MEDS ORDERED: LIDOCAINE 1% INJ 20 ML 20 ML VIAL ONE (08:18)
[2020-05-13] MEDS ORDERED: HEParin (CATH LAB) 2,000 ML IV ONE (08:18)
--- NOTE | 2020-05-13 08:20 | NUR ---
timeline note: 0800: Pt c/o chest pain 5/10. Nitro administered. 0805: Pt denies any chest pain or SOA at this time. 0812: Pt up to bathroom at this time. 0815: Received call from Dr. Torres, updated on pt, received orders for heart cath. 0820: Pt laying in bed resting at this time, pain 0/10, call light within reach.
--- NOTE | 2020-05-13 08:46 | Progress Note ---
Subjective Subjective Date Seen by Provider: May 13, 2020 Time Seen by Provider: 08:30 REPORT FROM NURSING STAFF, PT ACUTELY CONFUSED EARLY THIS MORNING. Review of Systems General: No Chills; Fatigue, Other (WEIGHT LOSS) HEENT: No Head Aches, No Visual Changes, No Dysphasia Pulmonary: No Dyspnea, No Cough Cardiovascular: No: Chest Pain, Palpitations Gastrointestinal: No: Nausea, Abdominal Pain Genitourinary: No Dysuria; Frequency Neurological: Weakness, Confusion All Other Systems Reviewed All Other Systems Reviewed: Yes Objective Exam Vital Signs Vital Signs - First Documented 05/10/20 05/13/20 19:56 01:20 Temp 36.0 Pulse 107 Resp 18 B/P (MAP) 134/81 (98) Pulse Ox 100 O2 Delivery Room Air O2 Flow Rate 2.00 Capillary Refill : Less Than 3 Seconds General Appearance: No Apparent Distress Eyes: Bilateral Eye Normal Inspection, Bilateral Eye PERRL, Bilateral Eye EOMI HEENT: PERRL/EOMI, Other (poor dentition) Neck: Non Tender, Supple Respiratory: Chest Non Tender, Lungs Clear, Normal Breath Sounds, No Respiratory Distress Cardiovascular: Regular Rate, Rhythm (PVCs), Normal Peripheral Pulses Gastrointestinal: Normal Bowel Sounds, Non Tender, Soft Rectal: Deferred Back: Normal Inspection Extremity: Non Tender, No Calf Tenderness Neurologic/Psychiatric: Alert, Oriented x3, No Motor/Sensory Deficits, Normal Mood/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, 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 Norm as Tested Skin: Normal Color, Warm/Dry Lymphatic: No Adenopathy Results Lab Laboratory Tests 05/12/20 10:55: Glucometer 110 05/13/20 00:47: Glucometer 203H 05/13/20 03:02: White Blood Count 9.1, Red Blood Count 3.98L, Hemoglobin 12.3L, Hematocrit 38L, Mean Corpuscular Volume 96, Mean Corpuscular Hemoglobin 31, Mean Corpuscular Hemoglobin Concent 32, Red Cell Distribution Width 13.7, Platelet Count 191, Mean Platelet Volume 11.2, Immature Granulocyte % (Auto) 0, Neutrophils (%) (Auto) 82H, Lymphocytes (%) (Auto) 7L, Monocytes (%) (Auto) 7, Eosinophils (%) (Auto) 3, Basophils (%) (Auto) 1, Neutrophils # (Auto) 7.5, Lymphocytes # (Auto) 0.6L, Monocytes # (Auto) 0.6, Eosinophils # (Auto) 0.3, Basophils # (Auto) 0.1, Immature Granulocyte # (Auto) 0.0, Sodium Level 139, Potassium Level 4.0, Chloride Level 110H, Carbon Dioxide Level 20L, Anion Gap 9, Blood Urea Nitrogen 24H, Creatinine 1.88H, Estimat Glomerular Filtration Rate 35, BUN/Creatinine Ratio 13, Glucose Level 119H, Calcium Level 8.5, Phosphorus Level 2.3, Magnesium Level 2.1 05/13/20 08:35: Microbiology 05/11/20 Blood Culture - Preliminary, Resulted No growth 05/10/20 MRSA Screen - Final, Complete MRSA not isolated 05/10/20 Urine Culture - Final, Complete Gram Pos Mixed Bacterial Lindsay Assessment/Plan Assessment/Plan Problems: (1) Septic embolism Assessment & Plan: POSSIBLE SEPTIC EMBOLI - DISCUSSED WITH DR. SANTOYO - HE WILL LIKELY TAKE HIM FOR HEART CATHETERIZATION INSTEAD OF RAY DUE TO HIS ACTIVE CHEST PAIN. WE ARE TREATING WITH ROCEPHIN 2 GRAM IV BID. (2) Acute on chronic kidney failure Qualifiers: Assessment & Plan: CONTINUE WITH IV FLUIDS, MONITOR LABS (3) Acute and subacute ischemic heart disease Assessment & Plan: NSTEMI - GROSSLY ELEVATED TROPONIN, MONITOR LABS, DEFER TO CARDIOLOGY (4) DMII (diabetes mellitus, type 2) Qualifiers: Qualified Codes: E11.22 - Type 2 diabetes mellitus with diabetic chronic kidney disease; N18.32 - Chronic kidney disease, stage 3b Assessment & Plan: SLIDING SCALE B (5) BPH (benign prostatic hyperplasia) (6) Subacute ischemic heart disease (7) Compression fx, thoracic spine RANDI VIGIL MD May 13, 2020 08:46
[2020-05-13] MEDS: PANTOPRAZOLE 40 MG (PROTONIX) VIAL IV SCH (08:47)
[2020-05-13] MEDS: CLOPIDOGREL 75 MG (PLAVIX) TABLET PO SCH (08:48)
[2020-05-13] MEDS: ASPIRIN 81 MG CHEW (CHILDREN'S ASA) PO SCH (08:48)
[2020-05-13] MEDS: LACTATED RINGERS 1,000 ML IV SCH (08:55)
--- NOTE | 2020-05-13 08:55 | Diagnostic Imaging Report ---
INDICATION: Septic emboli. COMPARISON: The study is compared with the exam from one day prior. FINDINGS: Peripheral Roya B's as well as thickening of the central airway are unchanged when differing penetration is taken into account. The heart size is stable. No overt overdistention of vascularity. No pleural fluid or pneumothorax. IMPRESSION: Bilateral interstitial opacities, unchanged. No pleural fluid or pneumothorax. Dictated by: Dictated on workstation # [id number]
[2020-05-13] MEDS ORDERED: meTOproloL SUCCINATE 50 MG (TOPROL XL) TAB PO SCH ×2 (09:00)
[2020-05-13] MEDS: VANCOMYCIN INJECTION 750 MG in NS (IVPB) 250 ML IV SCH (09:11)
--- NOTE | 2020-05-13 09:33 | NUR ---
RN called to pt room, pt c/o CP 08/11 at time of arrival. Nitro administered, Morphine administered as ordered. Pt on O2 2L NC, 92% HR 123 BP 116/76 R 20. Pt resting in bed at this time.
--- NOTE | 2020-05-13 09:44 | NUR ---
Nitro administered x2, pt reports pain 0/10 at this time. pt resting in bed, call light within reach. Dr. Torres notified.
[2020-05-13] MEDS ORDERED: fentaNYL INJECTION 100 MCG/2 ML AMP ONE (10:08)
[2020-05-13] MEDS ORDERED: MIDAZOLAM 5 MG/5 ML (VERSED) VIAL ONE (10:08)
[2020-05-13] MEDS: cefTRIAXone FOR IV USE 2,000 MG in WATER (STERILE) FOR INJECTION 20 ML IV SCH (10:19)
[2020-05-13] MEDS ORDERED: NS IV 1000 ML 1,000 ML ONE (10:32)
--- NOTE | 2020-05-13 10:33 | NUR ---
Pt off floor to heart cath at this time.
--- NOTE | 2020-05-13 10:38 | NUR ---
Pt is Religious. Money Manager offered reassurance and prayer just prior to pt's procedure after he stated he felt nervous. Money Manager normalized his feelings, reassured him of God's presence, and validated the skill and compassion of his care team. Pt said that this Money Manager's visit was comforting in preparation for procedure.
[2020-05-13] MEDS ORDERED: NS IV 1000 ML 1,000 ML IV SCH ×2 (11:00→12:15)
[2020-05-13] MEDS ORDERED: FUROSEMIDE 40 MG/4 ML INJ (LASIX) ONE (11:35)
--- NOTE | 2020-05-13 12:00 | NUR ---
Pt back to room from r and d lab technician at this time.
--- NOTE | 2020-05-13 12:05 | Progress Note - Cardiology ---
Cardiology SOAP Progress Note Subjective: Has been having intermittent chest discomfort this am Some shortness of breath during chest discomfort episodes No syncope No palp Gen malaise present No n/v/d Objective: I&O/Vital Signs 05/13/20 05/13/20 05/13/20 05/13/20 00:00 01:00 01:00 01:20 Temp 36.9 Pulse 114 114 B/P (MAP) 126/77 (93) Pulse Ox 93 O2 Delivery Room Air Nasal Cannula O2 Flow Rate 2.00 05/13/20 05/13/20 05/13/20 05/13/20 02:00 03:00 04:00 04:00 Temp 37.2 Pulse 102 113 110 B/P (MAP) 122/76 (91) 131/83 (99) 133/80 (97) Pulse Ox 97 95 O2 Delivery Nasal Cannula Nasal Cannula Nasal Cannula O2 Flow Rate 2.00 2.00 2.00 05/13/20 05/13/20 05/13/20 05/13/20 05:00 06:00 06:21 07:00 Pulse 110 115 122 121 Resp 17 B/P (MAP) 130/94 (106) 146/77 (100) 110/63 (79) Pulse Ox 95 89 93 O2 Delivery Nasal Cannula Nasal Cannula Nasal Cannula O2 Flow Rate 2.00 2.00 2.00 05/13/20 05/13/20 05/13/20 05/13/20 07:15 07:40 08:00 09:00 Temp 36.8 Pulse 125 117 Resp 2 21 B/P (MAP) 115/77 (90) 117/73 (88) Pulse Ox 95 93 98 O2 Delivery Nasal Cannula Nasal Cannula Nasal Cannula O2 Flow Rate 2.00 2.00 2.00 05/13/20 05/13/20 09:25 10:00 Pulse 113 Resp 21 B/P (MAP) 113/64 (80) Pulse Ox 91 95 O2 Delivery Nasal Cannula Nasal Cannula O2 Flow Rate 6.00 2.00 05/13/20 00:00 Intake Total 2255 ml Balance 2255 ml Weight (Pounds): 171 Weight (Ounces): 0.0 Weight (Calculated Kilograms): 77.324660 Constitutional: appears stated age; No apparent distress; well-developed, well- nourished Respiratory: chest is bilaterally symmetric, lungs clear to auscultation Cardiovascular: regular rate-rhythm, S1 and S2 Gastrointestional: No tender; soft, audible bowel sounds Extremities: No clubbing, No significant edema Neurologic/Psychiatric: other (Variable orientation, intermittently confused, seems to be able to move all limbs) Skin: normal color Results/Procedures: Labs Laboratory Tests 05/13/20 00:47: Glucometer 203H 05/13/20 03:02: White Blood Count 9.1, Red Blood Count 3.98L, Hemoglobin 12.3L, Hematocrit 38L, Mean Corpuscular Volume 96, Mean Corpuscular Hemoglobin 31, Mean Corpuscular Hemoglobin Concent 32, Red Cell Distribution Width 13.7, Platelet Count 191, Mean Platelet Volume 11.2, Immature Granulocyte % (Auto) 0, Neutrophils (%) (Auto) 82H, Lymphocytes (%) (Auto) 7L, Monocytes (%) (Auto) 7, Eosinophils (%) (Auto) 3, Basophils (%) (Auto) 1, Neutrophils # (Auto) 7.5, Lymphocytes # (Auto) 0.6L, Monocytes # (Auto) 0.6, Eosinophils # (Auto) 0.3, Basophils # (Auto) 0.1, Immature Granulocyte # (Auto) 0.0, Sodium Level 139, Potassium Level 4.0, Chloride Level 110H, Carbon Dioxide Level 20L, Anion Gap 9, Blood Urea Nitrogen 24H, Creatinine 1.88H, Estimat Glomerular Filtration Rate 35, BUN/Creatinine Ratio 13, Glucose Level 119H, Calcium Level 8.5, Phosphorus Level 2.3, Magnesium Level 2.1 05/13/20 08:35: Vancomycin Level Trough 10.6 Microbiology 05/11/20 Blood Culture - Preliminary, Resulted No growth 05/10/20 MRSA Screen - Final, Complete MRSA not isolated 05/10/20 Urine Culture - Final, Complete Gram Pos Mixed Bacterial Lindsay A/P: Assessment: CAD - Recent NSTEMI, ischemic cardiomyopathy, and unstable angina diagnosed during this hospitalization - Echocardiogram of May 11, [address] Velez shows LVEF 20-25%; akinesis of the apical myocardium, hypokinesis of the entire anterior, apical inferior, ba noah-mid anterolateral, apical septal, and apical lateral myocardium; mild MR with no vegetations noted; mild AoV stenosis with mild regurg, no vegetations noted; PASP 30-45mmHg - Card cath on 05/13/20: Critical ostial stenosis of LAD that also involves the 1 st diag, haziness in ostial LCX, 70-80 in prox/mid OM, 80-90 in prox/mid portion of a nondominant RCA, LVEDP 45 mmHg UTI with sepsis, treated and clinically improved Embolic strokes of undetermined etiology. Suspect LV to be source because of akinetic ant wall seen on echo of 05/11/20 CKD 4 Plan: * Complex managment due to multiple comorbidities. Condition appears unstable, including his mental status * Results of card cath outlined above * I spoke with Dr Madrea of Interventional Cardiac Svce at [facility]. He has kindly accepted the pt in transfer * I also discussed the case with Dr Isaac, pt's primary * Transfer via ambulance to [facility], Dr Madera AKOSUA * Furosemide to treat markedly elevated LVEDP JOSE SANTOYO MD FACP [facility] CCDS May 13, 2020 12:05
[2020-05-13] MEDS ORDERED: PATIENT MAY USE OWN MEDS, ALL PO SCH (12:15)
--- NOTE | 2020-05-13 12:15 | NUR ---
Family notified of pt post cath, and updated family that pt would be transferred to [place] for higher level of care. All questions answered at this time.
--- NOTE | 2020-05-13 12:17 | Cardiology Discharge Summary ---
Diagnosis/Chief Complaint Date of Admission May 10, 2020 at 22:23 Date of Discharge 05/13/20 Final/Discharge Diagnosis CAD - Recent NSTEMI, ischemic cardiomyopathy, and unstable angina diagnosed during this hospitalization - Echocardiogram of May 11, [address] Velez shows LVEF 20-25%; akinesis of the apical myocardium, hypokinesis of the entire anterior, apical inferior, basal-mid anterolateral, apical septal, and apical lateral myocardium; mild MR with no vegetations noted; mild AoV stenosis with mild regurg, no vegetations noted; PASP 30-45mmHg - Card cath on 05/13/20: Critical ostial stenosis of LAD that also involves the 1st diag, haziness in ostial LCX, 70-80 in prox/mid OM, 80-90 in prox/mid portion of a nondominant RCA, LVEDP 45 mmHg UTI with sepsis, treated and clinically improved Embolic strokes of undetermined etiology. Suspect LV to be source because of akinetic ant wall seen on echo of 05/11/20 CKD 4 Chief Complaint/HPI Chief Complaint/HPI Please refer to Dr Velez's initial Cardiology consult of 05/11/20 for details of this admission. Hospital course: * Complex managment due to multiple comorbidities. Condition appears unstable, including his mental status * Results of card cath outlined above * I spoke with Dr Madera of Interventional Cardiac Svce at [facility]. He has kindly accepted the pt in transfer * I also discussed the case with Dr Isaac, pt's primary * Transfer via ambulance to [facility], Dr Madera AKOSUA * Furosemide to treat markedly elevated LVEDP Discharge Summary Hospital Course Pending Labs Laboratory Tests 05/13/20 08:35: Vancomycin Level Trough 10.6 Discussion & Recommendations Home Medications Reviewed patient Home Medication Reconciliation performed by pharmacy medication reconciliations plating technician and/or nursing. Patients Allergies have been reviewed. Discharge Home Medications: Reviewed and agree with Discharge Medication list on patient's Discharge Instr uction sheet JOSE SANTOYO MD FACP [facility] CCDS May 13, 2020 12:17
--- NOTE | 2020-05-13 12:46 | CARDIAC CATHETERIZATION ---
DATE OF SERVICE: 05/13/2020 CARDIAC CATHETERIZATION REPORT The patient is a 80-year-old man who was admitted with confusion and sepsis. He had an MRI of the head on 05/07/2020 for confusion and was found to have emboli to the brain. He was hospitalized on 05/11/2020 with generalized malaise and confusion. During the hospitalization, he has been found to have elevated troponin consistent with a recent myocardial infarction and echocardiography has shown akinesis of the anterior wall and left ventricular ejection fraction of approximately 20%. He also has chronic kidney disease stage IV. He was treated conservatively at first. He started to have chest pain again. Accordingly, cardiac catheterization was carried out after having obtained consent from him and his next of kin. DESCRIPTION OF PROCEDURE: He was brought to the cardiac catheterization laboratory in a fasting state. The right groin was prepared and draped in the usual sterile fashion. Lidocaine 1% was used for local anesthesia. Modified Seldinger technique was used to advance a 5-Mosotho sheath in the right femoral artery. Angiography of the right femoral artery was carried out through the sheath. We used 5-Mosotho JL4 catheter for left coronary angiography, 5-Mosotho JR4 catheter for right coronary angiography. We used a 5-Mosotho pigtail catheter to carry out left heart catheterization. Left ventricular angiography was not performed. This was to conserve contrast, given the patient's chronic kidney disease stage IV. HEMODYNAMICS: Left ventricular end-diastolic pressure following coronary angiography was approximately 45 mmHg. There was no significant pressure gradient on pullback across the aortic valve. Ascending aortic pressure was 123/65 with a mean 87 mmHg. CORONARY ANGIOGRAPHY: Coronary calcification is present in the proximal coronary vessels. Left main coronary artery does not exhibit significant obstructive disease. Left anterior descending artery has critical (99%) ostial stenosis and also involves the origin of a first diagonal branch. The left circumflex artery has some haziness in its ostial and proximal portion. A sizable obtuse marginal branch of the left circumflex artery has 70% to 80% stenosis in its proximal midportion. The right coronary artery is nondominant and has 80% to 90% stenosis in its proximal to mid portion. CONCLUSIONS: 1. Multivessel coronary artery disease. The culprit lesion is critical ostial stenosis of the left anterior descending that also involves the origin of the first diagonal. The patient also has haziness in the ostial/proximal left circumflex, 70% to 80% proximal to mid vessel stenosis of an obtuse marginal, and 80% to 90% proximal to mid vessel stenosis of nondominant right coronary artery. 2. Significantly elevated left ventricular end-diastolic pressure. DISCUSSION AND RECOMMENDATIONS: The patient has critical left anterior descending artery stenosis that is a bifurcation lesion and also appears to extend the left main coronary artery. We recommend coronary intervention at a facility with coronary artery bypass surgery backup. I personally spoke with Dr. Madera at [facility] who has kindly accepted the patient in transfer, but the hospital does not have beds currently. The transfer will be made as soon as possible. I have also discussed this with Dr. Isaac to whose service the patient has been admitted during this hospitalization. Given his markedly elevated left ventricular end-diastolic pressure, we recommend therapy with intravenous furosemide and reduction in the IV fluid rate. We will continue therapy with dual antiplatelet therapy and with parenteral anticoagulation. Beta blockers will be used as tolerated by his blood pressure. Job ID: [id number] DocumentID: [id number] Dictated Date: 05/13/2020 11:57:36 Tripper Date: 05/13/2020 12:44:28 Dictated By: JOSE SANTOYO MD, MA, FACP, FACC,
--- NOTE | 2020-05-13 12:55 | NUR ---
Family at bedside to see pt prior to transfer to [place]. All questions answered at this time.
--- NOTE | 2020-05-13 13:00 | NUR ---
Dr. Isaac notified of pt being transferred to [place].
--- NOTE | 2020-05-13 13:15 | NUR ---
Pt transferred to [place] at this time via [facility]. Family at bedside at this time.
[2020-05-14] MEDS ORDERED: VANCOMYCIN INJECTION 1,000 MG in NS (IVPB) 250 ML IV SCH (09:00)
== END 2020-05-13 13:15 | disposition short-term general hospital (02) | DRG 871 ==
LOC: EDUNIT# 19:48 → ER 19:50 → ICU 22:23
PROVIDERS: ADMIT Family Medicine; ATTEND Family Medicine
PROC: 4A023N7 Measurement of Cardiac Sampling and Pressure, Left Heart, Percutaneous Approach (ICD-10-PCS; principal; 2020-05-13)
PROC: B2111ZZ Fluoroscopy of Multiple Coronary Arteries using Low Osmolar Contrast (ICD-10-PCS; 2020-05-13)
DX: A41.9 Sepsis, unspecified organism (principal); I21.4 Non-ST elevation (NSTEMI) myocardial infarction; I63.9 Cerebral infarction, unspecified; I33.0 Acute and subacute infective endocarditis; E87.2 Acidosis; N17.9 Acute kidney failure, unspecified; I13.0 Hypertensive heart and chronic kidney disease with heart failure and stage 1 through stage 4 chronic kidney disease, or unspecified chronic kidney disease; M48.54XA Collapsed vertebra, not elsewhere classified, thoracic region, initial encounter for fracture; I25.110 Atherosclerotic heart disease of native coronary artery with unstable angina pectoris; N39.0 Urinary tract infection, site not specified; N18.4 Chronic kidney disease, stage 4 (severe); Z20.822 Contact with and (suspected) exposure to COVID-19; E78.00 Pure hypercholesterolemia, unspecified; I10 Essential (primary) hypertension; E83.39 Other disorders of phosphorus metabolism; E11.22 Type 2 diabetes mellitus with diabetic chronic kidney disease; N40.0 Benign prostatic hyperplasia without lower urinary tract symptoms; I50.9 Heart failure, unspecified; I25.5 Ischemic cardiomyopathy; I25.2 Old myocardial infarction
CPT/HCPCS: 36415; 71045; 72070; 72146; 80048; 80053; 80202; 81000; 82550; 82962; 83605; 83735; 84100; 84484; 85007; 85025; 85027; 85379; 85610; 85652; 85730; 86141; 87040; 87081; 87088; 87635; 93005; 93041; 93306; 93458

== ENCOUNTER 2020-05-21 15:55 | Inpatient (IN) | payer MEDICARE ==
[~2020-05-21] VITALS: Ht 165.1 cm; Wt 68.8 kg
[~2020-05-21 15:55] MED LIST changes: +AMLO-251 PO; +ASPI-1238 PO; +CLOP75TA28 PO; +ERGO50006 PO; +LORA-404 PO
[2020-05-22] MEDS ORDERED: DOCUSATE SODIUM 100 MG (COLACE) CAP PO PRN (07:15)
[2020-05-22] MEDS ORDERED: diphenhydrAMINE 25 MG TAB (BENADRYL) PO PRN (07:15)
[2020-05-22] MEDS ORDERED: BISACODYL 10 MG SUPP (DULCOLAX) PR PRN (07:15)
[2020-05-22] MEDS ORDERED: ONDANSETRON 4 MG (ZOFRAN) ORAL DISSOLVE TAB PO PRN (07:15)
[2020-05-22] MEDS ORDERED: FLEET ENEMA ADULT 1 EA BTL PR PRN (07:15)
[2020-05-22] MEDS ORDERED: guaiFENesin/CODEINE (ROBITUSSIN AC) 10ML UDC PO PRN (07:15)
[2020-05-22] MEDS ORDERED: ALPRAZolam 0.25 MG (XANAX) TAB PO PRN (07:15)
[2020-05-22] MEDS ORDERED: LOPERAMIDE 2 MG (IMODIUM) TABLET PO PRN (07:15)
[2020-05-22] MEDS ORDERED: MELATONIN 3 MG TABLET PO PRN (07:15)
[2020-05-22] MEDS ORDERED: CALCIUM CARBONATE 500 MG (TUMS) TAB.CHEW PO PRN (07:15)
[2020-05-23] MEDS ORDERED: ATOR40TA70 PO (12:49)
[2020-05-23] MEDS ORDERED: INSU100V5 SQ (12:49)
[2020-05-23] MEDS ORDERED: TICA90TA PO (12:49)
[2020-05-23] MEDS ORDERED: PAMI30VI8 SQ (12:49)
[2020-05-23] MEDS ORDERED: LEVO500T80 PO (12:49)
[2020-05-23] MEDS ORDERED: ACET-2267 PO (12:49)
[2020-05-23] MEDS ORDERED: CALC500T64 PO (12:49)
[2020-05-23] MEDS ORDERED: MELA3TAB39 PO (12:49)
[2020-05-23] MEDS ORDERED: CARV3.122 PO (12:49)
--- NOTE | 2020-05-23 15:12 | Occupational Therapy Eval ---
OT Evaluation-General/PLF Medical Diagnosis Admission Date Medical Diagnosis: NSTEMI Onset Date: May 07, 2020 Therapy Diagnosis Therapy Diagnosis: Decreased ADL status Height/Weight Height (Feet): 5 Height (Inches): 6.00 Weight (Pounds): 171 Weight (Ounces): 0.0 Precautions Precautions/Isolations: Standard Precautions Weight Bear Status Weight Bearing Restriction: Full Weight Bearing Referral Physician: Evita Referral Reason: Activity Tolerance, Self Care, Evaluation/Treatment, Strengthening/ROM Medical History Additional Medical History Prostate Ca, DM, HLD, HTN, bilateral cataract. Current History Pt admits after found at home to ED, transferred to [place] for further evaluation. Pt dx with NSTEMI and acute on chronic systolic CHF with low EF of 10-15%. Pt placed on vent due to cardiogenic shock with florid pulmonary edema with significant respiratory distress. Reviewed History: Yes Social History Home: [facility] Current Living Status: Alone Entry Into Home: Stairs Without Railing Steps Into Home: 10 Steps Inside Home: 10 (possibly more or less per pt.) ADL-Prior Level of Function SCALE: Activities may be completed with or without assistive devices. 4-Edhvfqbwkb-flisxwd completes the activity by him/herself with no assistance from a helper. 5-Set-up or Clean-up Assistance-helper sets up or cleans up; patient completes activity. [place] assists only prior to or following the activity. 4-Supervision or Touching Assistance-helper provides verbal cues and/or touching/steadying and/or contact guard assistance as patient completes activity. Assistance may be provided throughout the activity or intermittently. 3-Partial/Moderate Assistance-helper does LESS THAN HALF the effort. [place] l ifts, holds or supports trunk or limbs, but provides less than half the effort. 2-Substantial/Maximal Assistance-helper does MORE THAN HALF the effort. [place] lifts or holds trunk or limbs and provides more than half the effort. 3-Zwbbjmtnt-qxpegx does ALL the effort. Patient does none of the effort to complete the activity. Or, the assistance of 2 or more helpers is required for t he patient to complete the activity. If activity was not attempted, code reason: 7-Patient Refused. 9-Not Applicable-not attempted and the patient did not perform the activity before the current illness, exacerbation or injury. 10-Not Attempted due to Environmental Limitations-(lack of equipment, weather restraints, etc.). 88-Not Attempted due to Medical Conditions or Safety Concerns. ADL PLOF Comments Pt states IND prior, driving/ IADLs with IND without AD. Self Care: Independent Functional Cognition: Independent DME/Equipment: Tub/Shower DME/Equipment Comments Pt states has no sc or gbs in tub/shower. Occupation: retired. Drive Self: Yes OT Current Status Subjective PT eval: [id number] OT eval: [id number] OT/ PT co-treat: [id number] (10): OT addressing safety, problem solving, UE movement and ADLs (refuses) and PT addresses LE movement, transfers, w/c mobility, balance. Pt brought from transfer van to [facility]. Upon transfer from transport w/c to [facility] w/c, pt states, "You're going to hurt me." Pt's awareness/ cognitive status not tested, unsure of ability. Pt denies treatment within 30 minutes of therapy initiation. Mental Status/Objective Patient Orientation: Person, Place, Situation Current Glasses/Contacts: No Hearing Aids: No Hand Dominance: Right Upper Extremity ROM Pt has limited shoulder flexion (flexes to ~80*) WFL distally. Upper Extremity Coordination Pt manipulates gown and belt, attempting to doff belt, pt's coordination WFL Upper Extremity Sensation Denies paresthesias. Upper Extremity Strength WFL BUE (4/5) ADL-Treatment Eating (QC): 7 Oral Hygiene (QC): 7 Shower/Bathe Self (QC): 7 Upper Body Dressing (QC): 7 Lower Body Dressing (QC): 7 On/Off Footwear (QC): 7 Toileting Hygiene (QC): 7 Other Treatments PT eval, OT eval, OT/ PT co-treat with OT addressing safety, problem solving, UE movement and ADLs (refuses) and PT addresses LE movement, transfers, w/c mobility, balance. Pt is transferred by nursing through [facility]. Pt is met by therapists in [place], requesting to transfer to separate w/c. Pt able to sit to stand with min A, completes SPT with PT assist with min A. Pt states, "You're going to hurt me." Pt is asked if he has pain, pt denies. Pt is educated that therapy is here to assist in him completing own actions, not to harm. Pt is pushed by w/c to ARU, pt engages in conversation when probed. Pt states he does not work, when asked what he did prior, pt states, "A whole lot of nothing." Pt is brought to therapy gym, completes PT eval/ OT eval with ability to follow directions with ease, though requires increased time for each task. Upon OT asking for coordination task, pt states, "Let's not do this." Pt states, "There are ambitious people in the world, and I am the opposite; I am anti-ambitious." Pt denies ambulating or pushing w/c. Pt states he does not desire to be here, beginning to doff gait belt. Pt is educated on therapy/ ARU process, and pt states he does not desire rehab. Pt is pushed to room as he states desire to "chill and go to bed." Pt is pushed to EOB, given walker and SBA. Pt attempts stance, states, "I can't stand." PT explains purpose of therapy being present, pt denies assist or placing gait belt on. Per PT, pt min A sit to stand and min A to complete bed mob. Pt is left in bed with all needs met, call light in reach, pt's nurse notified of positioning. 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 2=Patient will verbalize/demonstrate understanding of assistive devices/modifications for ADL. 3=Patient will improve strength/tolerance for activity to enable patient to perform ADL's. OT Education/Plan Problem List/Assessment Assessment: Decreased Activ Tolerance, Decreased Safety Aware, Dependent Transfers, Impaired Bed Mobility, Impaired Funct Balance, Impaired I ADL's, Impaired Self-Care Skills Discharge Recommendations Plan/Recommendations: Continue POC Therapy Discharge Recommendati: Scheduled Assistance, Assisted Living, Meals on Wheels, Bath Aide Treatment Plan/Plan of Care Treatment,Training & Education: Yes Patient would benefit from OT for education, treatment and training to promote independence in ADL's, mobility, safety and/or upper extremity function for ADL's. Plan of Care: ADL Retraining, Caregiver Training, Concurrent Therapy, Functional Mobility, Group Exercise/Act as Ind, UE Funct Exercise/Act, UE Neuromus Re-Ed/Coord, W/C Management Training Treatment Duration: Jun 06, 2020 Frequency: At least 5 of 7 days/Wk (IRF) Estimated Hrs Per Day: 1.5 hours per day Agreement: Yes Rehab Potential: Poor Time/GCodes Start Time: 14:35 Stop Time: 15:05 Total Time Billed (hr/min): 20 Billed Treatment Time PT eval: [id number] OT eval: [id number] OT/ PT co-treat: [id number] (10): OT addressing safety, problem solving, UE movement and ADLs (refuses) and PT addresses LE movement, transfers, w/c mobility, balance. 1, EVM (10) JACQUES CRESPO OTR May 23, 2020 15:12
--- NOTE | 2020-05-23 15:13 | Physical Therapy Evaluation ---
PT Evaluation-General Medical Diagnosis Admission Date Medical Diagnosis: NSTEMI Onset Date: May 07, 2020 Therapy Diagnosis Therapy Diagnosis: impaired mobility, strength, endurance Height/Weight Height (Feet): 5 Height (Inches): 6.00 Weight (Pounds): 171 Weight (Ounces): 0.0 Referral Physician: Susan Jama DO Reason for Referral: Evaluation/Treatment Medical History Additional Medical History Prostate Ca, DM, HLD, HTN, bilateral cataract. Social History Home: Multilevel Current Living Status: Alone Entry Into Home: Stairs Without Railing PT Steps Into Home: 10 Prior Prior Level of Function SCALE: Activities may be completed with or without assistive devices. 0-Uxzmpjezdy-qotijbm completes the activity by him/herself with no assistance from a helper. 5-Set-up or Clean-up Assistance-helper sets up or cleans up; patient completes activity. [place] assists only prior to or following the activity. 4-Supervision or Touching Assistance-helper provides verbal cues and/or touching/steadying and/or contact guard assistance as patient completes activity. Assistance may be provided throughout the activity or intermittently. 3-Partial/Moderate Assistance-helper does LESS THAN HALF the effort. [place] lifts, holds or supports trunk or limbs, but provides less than half the effort. 2-Substantial/Maximal Assistance-helper does MORE THAN HALF the effort. [place] lifts or holds trunk or limbs and provides more than half the effort. 5-Kdxraxnya-qmcudd does ALL the effort. Patient does none of the effort to complete the activity. Or, the assistance of 2 or more helpers is required for the patient to complete the activity. If activity was not attempted, code reason: 7-Patient Refused. 9-Not Applicable-not attempted and the patient did not perform the activity before the current illness, exacerbation or injury. 10-Not Attempted due to Environmental Limitations-(lack of equipment, weather restraints, etc.). 88-Not Attempted due to Medical Conditions or Safety Concerns. Bed Mobility: 6 Transfers (B,C,W/C): 6 Gait: 6 Stairs: 6 Indoor Mobility (Ambulation): Independent Stairs: Independent PT Evaluation-Current Subjective Patient in WC pre tx, agrees to PT, has no complaints of pain. Will be co- treating with OT for part of tx due to poor patient mobility, strength, endurance, poor balance with activity, coordinate UE and LE during activity, safety and reduce risk of falls. Pt/Family Goals none stated Objective Patient Orientation: Person, Place, Situation ROM/Strength ROM Lower Extremities WNL Strength Lower Extremities LLE (hip flexion 3/5, knee flexion 3+/5, knee extension 3+/5, dorsiflexion 3+/5), RLE (hip flexion 3/5, knee flexion 3+/5, knee extension 3+/5, dorsiflexion 3+/5) Neuromuscular (Tone, Coordination, Reflexes) Unable to test patient vision because he would not follow directions. Sensory Hearing: Functional Sensation Right Lower Extremit: Intact Sensation Left Lower Extremity: Intact Transfers Roll Left & Right (QC): 3 Sit to Lying (QC): 3 Lying to Sitting/Side of Bed(Q: 3 Sit to Stand (QC): 3 Chair/Bvq-oe-Bfogj Xfer(QC): 3 Toilet Transfer (QC): 7 Car Transfer (QC): 7 Patient performs bed mobility and supine <-> sit min assist, sit to stand and stand pivot transfer min assist. Patient is resistant to using the gait belt, does not follow directions. Gait Walk 10 feet (QC): 7 Walk 50 ft with 2 Turns(QC): 7 Walk 150 ft (QC): 7 Walking 10ft/uneven surface-QC: 7 Wheelchair Training Wheel 50 ft with 2 turns (QC): 7 Wheel 150 ft (QC): 7 Stairs 1 Step (curb) (QC): 7 4 Steps (QC): 7 12 Steps (QC): 7 Balance Sitting Static: Fair Sitting Dynamic: Fair Standing Static: Poor Standing Dynamic: Poor Picking up an Object (QC): 7 Assessment/Needs Patient has impaired mobility, strength, endurance. Patient in bed post tx with nurse call, phone, tray, all needs met. Patient refuses most testing and treatment. Patient just states Im not going to do it. He says "some people are very ambitious, I'm anti-ambitious". Patient refuses to use the gait belt. Will not ambulate or propel WC. The rehab process was explained to patient and the role of him working with therapy. He says he understands but isn't going to do any of that. Rehab Potential: Poor PT Short Term Goals Short Term Goals Time Frame: May 30, 2020 Roll Left & Right: 4 Sit to lyin Lying to sitting on side of be: 4 Sit to stand: 4 Chair/tby-sf-ahqvn transfer: 4 Toilet transfer: 4 Walk 10 feet: 4 PT Exec. Creative Director Goals Exec. Creative Director Goals PT Residential Goals Time Frame: Jun 13, 2020 Roll Left & Right (QC): 4 (SBA) Sit to Lying (QC): 4 (SBA) Lying-Sitting on Side/Bed(QC): 4 (SBA) Sit to Stand (QC): 4 (SBA) Chair/Oui-qa-Qhuzq Xfer(QC): 4 (SBA) Toilet Transfer (QC): 4 (SBA) Car Transfer (QC): 4 (SBA) Does the Patient Walk: Yes Walk 10 feet (QC): 4 (SBA) Walk 50ft with 2 Turns (QC): 4 (SBA) Walk 150 ft (QC): 4 (SBA) Walking 10ft on Uneven Surface: 4 (SBA) 1 Step (curb) (QC): 4 (CGA) 4 Steps (QC): 4 (CGA) 12 Steps (QC): 4 (CGA) Picking up an Object (QC): 4 (CGA) Wheel 50 feet with 2 turns (QC: 6 Wheel 150 feet: 6 PT Plan Problem List Problem List: Activity Tolerance, Functional Strength, Safety, Balance, Gait, Transfer, Bed Mobility, ROM Treatment/Plan Treatment Plan: Continue Plan of Care Treatment Plan: Bed Mobility, Education, Functional Activity Yuri, Functional Strength, Group Therapy, Gait, Safety, Therapeutic Exercise, Transfers Treatment Duration: Jun 13, 2020 Frequency: At least 5 of 7 days/Wk (IRF) Estimated Hrs Per Day: 1.5 hours per day Patient and/or Family Agrees t: Yes Safety Risks/Education Patient Education: Transfer Techniques, Correct Positioning, Safety Issues Teaching Recipient: Patient Teaching Methods: Demonstration, Discussion Response to Teaching: Reinforcement Needed Discharge Recommendations Plan Patient will perform bed mobility and transfer training, balance and endurnace training, functional strengthening, stair training, gait training, and education, to improve functional mobility and independence at home. Therapy Discharge Recommendati: 24 Hour Supervision Time/GCodes Time In: 1435 Time Out: 1505 Total Billed Treatment Time: 20 Total Billed Treatment 1 visit EVM 10' FA 10' (no charge) PT eval from [id number], OT eval from [id number], co-treat from [id number] PT performed bed mobility and transfers, testing, OT performed testing, assist with UE positioning and safety during activity. FRANK YATES PT May 23, 2020 15:13
[2020-05-23] MEDS ORDERED: ACETAMINOPHEN 325 MG TABLET PO PRN (15:45)
--- NOTE | 2020-05-23 17:38 | PM&R Post Admission Assessment ---
PM&R HP Date of Visit: May 23, 2020 Time of Visit: 17:40 History of Present Illness CC: Critical illness myopathy HPI: This is a 80yoWM clinic patient of Dr Isaac who has a h/o HTN and prostate cancer and CKD Stage 4 who presents from [place] after transferring there on 05/14/20 due to cardiogenic shock and respiratory failure and ultimately required stents in LAD and circumflex and also required Impella device with dobutamine drip due to decreased EF 15%. Patient is currently confused. Patient had confusion for a time before he was admitted to [facility] after found down by his sister the day she brought him to the ER on 05/10/20. MRI revealed multiple infarcts subacute and chronic. Upon arrival he refused to participate in therapy for assessment. Patient has a cough and patient is on Levaquin for URI. Minimal details obtained from the patient. Past Pxgceat-Yaqdhz-Itpfsf Hx Past Med/Social Hx: Reviewed Nursing Past Med/Soc Hx, Reviewed and Corrections made Patient Social History Marrital Status: single Employed/Student: retired Alcohol Use: Denies Use Smoking Status: Unknown if Ever Smoked 2nd Hand Smoke Exposure: No Recent Hopitalizations: No Immunizations Up To Date Tetanus Booster (TDap): Unknown Pediatric: No Seasonal Allergies Seasonal Allergies: No Past Medical History Surgeries: Abdominal, Coronary Stent, Eye Surgery Cardiac: Cardiomyopathy (05/14/20), Coronary Artery Disease, Heart Attack, High Cholesterol, Hypertension Neurological: Stroke Reproductive: No Sexually Transmitted Disease: No HIV/AIDS: No Genitourinary: Prostate Problems, Kidney Stones, Renal Failure Musculoskeletal: Arthritis Endocrine: Diabetes, Non-Insulin dep HEENT: Cataract Loss of Vision: Bilateral Hearing Impairment: Denies Cancer: Prostate, Skin Did You Recieve Any Treatments: Yes What Type of Treatment Did You: Radiation History of Blood Disorders: No Adverse Reaction to Blood Perez: No (N/A) Prior Level of Function Bed Mobility: 6 Transfers: 6 Gait: 6 Stairs: 6 Indoor Mobility (Ambulation): Independent Stairs: Independent Self Care: Independent Functional Cognition: Independent Occupation: retired. Drive Self: Yes Current Level of Fuctioning Roll Left to Right: 3 Sit to Lyin Lying to Sitting/Side of Bed: 3 Sit to Stand: 3 Chair/Ftk-hv-Xqcsc Xfer: 3 Car Transfer: 7 Walk 10 feet: 7 Walk 50 ft with 2 Turns: 7 Walk 150 ft: 7 Walking 10ft on uneven surface: 7 Wheel 50 ft with 2 turns: 7 Wheel 150 ft: 7 1 Step (curb): 7 4 Steps: 7 12 Steps: 7 Picking up an Object: 7 Eatin Oral Hygiene: 7 Shower/Bathe Self: 7 Upper Body Dressin Lower Body Dressin On/Off Footwear: 7 Toileting Hygiene: 7 PM&R Allergy/Meds/Data Review Allergies Coded Allergies: No Known Drug Allergies (Unverified , 01/10/19) Home Medications Scheduled Aspirin (Aspirin EC), 81 MG PO DAILY, (Reported) Atorvastatin Calcium (Atorvastatin Calcium), 40 MG PO HS, (Reported) Carvedilol (Carvedilol), 3.125 MG PO BID WITH MEALS, (Reported) Ergocalciferol (Vitamin D2) (Vitamin D2), 1,250 MCG PO SUN, (Reported) Insulin Determir (Levemir), 6 UNITS SQ 0800,2100, (Reported) Insulin Lispro (Humalog), UNIT SQ ACHS, (Reported) Levofloxacin (Levofloxacin), 500 MG PO Q48H, (Reported) Melatonin (Melatonin), 6 MG PO HS, (Reported) Ticagrelor (Brilinta), 90 MG PO BID, (Reported) Scheduled PRN Acetaminophen (Tylenol Extra Strength), 1,000 MG PO Q6H PRN for PAIN-MILD (1-4) OR TEMPATURE, (Reported) Calcium Carbonate (Calcium Carbonate), 500-1,000 MG PO Q4H PRN for INDIGESTION, (Reported) Discontinued Medications Amlodipine Besylate (Amlodipine Besylate), 10 MG PO DAILY, (Reported) Discontinued Reason: No Longer Taking Bisoprolol Fumarate (Bisoprolol Fumarate), 2.5 MG PO BID, (Reported) Discontinued Reason: No Longer Taking Clopidogrel Bisulfate (Clopidogrel), 75 MG PO DAILY, (Reported) Discontinued Reason: No Longer Taking Tamsulosin HCl (Flomax), 0.4 MG PO DAILY, (Reported) Discontinued Reason: No Longer Taking Current Medications Current Medications Reviewed Review of Systems Constitutional: see HPI, malaise, weakness EENTM: no symptoms reported Respiratory: cough Cardiovascular: no symptoms reported Gastrointestinal: no symptoms reported Genitourinary: no symptoms reported Musculoskeletal: no symptoms reported Skin: no symptoms reported Psychiatric/Neurological: Other (confusion) Physical Exam Physical Exam Vital Signs Capillary Refill : Height, Weight, BMI Height: 5'6.00" Weight: 171lbs. 0.0oz. [id number]; 25.02 BMI Method:Estimated General Appearance: No Apparent Distress, WD/WN, Chronically ill Eyes: Bilateral Eye Normal Inspection, Bilateral Eye PERRL HEENT: PERRL/EOMI, Normal ENT Inspection, Pharynx Normal Neck: Full Range of Motion, Normal Inspection, Non Tender, Supple, Carotid Bruit Respiratory: Chest Non Tender, Lungs Clear, Normal Breath Sounds, No Accessory Muscle Use, No Respiratory Distress Cardiovascular: Regular Rate, Rhythm, No Edema, No Gallop, No JVD, No Murmur, Normal Peripheral Pulses Gastrointestinal: Normal Bowel Sounds, No Organomegaly, No Pulsatile Mass, Non Tender, Soft Back: Normal Inspection, No CVA Tenderness, No Vertebral Tenderness Extremity: Normal Capillary Refill, Normal Inspection, Normal Range of Motion, Non Tender, No Calf Tenderness, No Pedal Edema Neurologic/Psychiatric: Alert, No Motor/Sensory Deficits, Abnormal Gait, Depressed Affect, Disoriented, Motor Weakness (generalized all extremities) Skin: Normal Color, Warm/Dry Lymphatic: No Adenopathy PM&R Medical Assessment & Plan REHAB/MEDICAL ASSESSMENT AND PLAN: REHAB IMPAIRMENT GROUP: Critical illness myopathy ETIOLOGIC DIAGNOSIS: Critical illness myopathy The comorbidities that impact the patients function and/or functional outcome by: confusion acute on chronic, CKD, CAD, cardiomyopathy REHAB PLAN: The patient is being admitted to our comprehensive inpatient rehabilitation facility and can tolerate the intensity of service consisting of at least: 180 minutes of therapy a day, 5 out of 7 days a week Rehab treatment will consist of: PT OT ST will all focus on regaining as much independence as possible in catastrophic condition leading to significant disability and dependency The patient/family has a good understanding of our discharge process and will benefit from an interdisciplinary inpatient rehabilitation program. The patient has potential to make improvement and is in need of at least two of the following multidisciplinary therapies including but not limited to physical, occupational, speech, and prosthetics and orthotics. Additionally the patient will need services from respiratory, nutritional services, wound care, psychology, etc. (Customize this to each patient). Given the patients complex condition and risk of further medical complications, rehabilitation services cannot be safely or effectively provided at a lower level of care such as a halfway facility. BARRIERS TO DISCHARGE: Confusion ESTIMATED LOS: 14 days DISPOSITION: Home RELEVANT CHANGES SINCE PREADMISSION SCREENING: I have compared the patients medical and functional status at the time of the preadmission screening and there are: no changes PROGNOSIS: Guarded REHABILITATION GOALS: 1. PT OT ST will all focus on regaining as much independence as possible in catastrophic condition leading to significant disability and dependency All the above goals were reviewed with the patient and he/she is in agreement. By signing this document, I acknowledge that I have personally performed a full physical examination on this patient within 24 hours of admission to this inpatient rehabilitation facility and have determined the patient to be able to tolerate the above course of treatment at an intensive level for a reasonable period of time. I will be completing a detailed individualized Plan of Care for this patient by day #4 of the patients stay based upon the Preadmission Screen, the Post-Admission Evaluation, and the therapy evaluations. Admission Dx/Comorbidities: (1) Myopathy ICD Codes: G72.9 - Myopathy, unspecified (2) CKD (chronic kidney disease) stage 4, GFR 15-29 ml/min ICD Codes: N18.4 - Chronic kidney disease, stage 4 (severe) (3) Confusion ICD Codes: R41.0 - Disorientation, unspecified (4) Cerebrovascular disease ICD Codes: I67.9 - Cerebrovascular disease, unspecified (5) Cardiomyopathy ICD Codes: I42.9 - Cardiomyopathy, unspecified (6) CAD (coronary artery disease) ICD Codes: I25.10 - Atherosclerotic heart disease of [place] coronary artery without angina pectoris (7) S/P coronary artery stent placement ICD Codes: Z95.5 - Presence of coronary angioplasty implant and graft (8) URI (upper respiratory infection) ICD Codes: J06.9 - Acute upper respiratory infection, unspecified (9) Diabetes mellitus ICD Codes: E11.9 - Type 2 diabetes mellitus without complications (10) Anemia ICD Codes: D64.9 - Anemia, unspecified (11) DMII (diabetes mellitus, type 2) ICD Codes: E11.9 - Type 2 diabetes mellitus without complications (12) BPH (benign prostatic hyperplasia) ICD Codes: N40.0 - Benign prostatic hyperplasia without lower urinary tract symptoms Assessment/Plan Assessment and Plan Assess & Plan/Chief Complaint Assessment: Critical illness myopathy s/p cardiogenic shock CKD Stage 4 HTN DM Confusion Cebrovascular disease on MRI Fall risk Plan: IRF protocol Monitor closely Monitor creat Cardiology consultation GHADA SANDOVAL DO May 23, 2020 17:38
[2020-05-23] MEDS ORDERED: ACETAMINOPHEN 500 MG TAB (TYLENOL) PO PRN (17:45)
[2020-05-23 17:47] VITALS: BP 105/58
[2020-05-23] MEDS ORDERED: CALCIUM CARBONATE 500 MG (TUMS) TAB.CHEW PO PRN (18:00)
[2020-05-23 18:04] LABS: BASOPHILS # (AUTO) 0.1 10^3/uL (0.0-0.1); BASOPHILS % (AUTO) 1 % (0-10); EOSINOPHILS # (AUTO) 0.4 10^3/uL (0.0-0.3); EOSINOPHILS % (AUTO) 3 % (0-10); HEMATOCRIT 34 % (40-54); HEMOGLOBIN 10.9 g/dL (13.3-17.7); LYMPHOCYTES # (AUTO) 0.6 10^3/uL (1.0-4.0); LYMPHOCYTES % (AUTO) 4 % (12-44); MEAN CORPUSCULAR HEMOGLOBIN 31 pg (25-34); MEAN CORPUSCULAR HGB CONC 32 g/dL (32-36); MEAN CORPUSCULAR VOLUME 96 fL (80-99); MEAN PLATELET VOLUME 10.5 fL (9.0-12.2); MONOCYTES # (AUTO) 0.9 10^3/uL (0.0-1.0); MONOCYTES % (AUTO) 7 % (0-12); NEUTROPHILS # (AUTO) 10.3 10^3/uL (1.8-7.8); NEUTROPHILS % (AUTO) 83 % (42-75); PLATELET COUNT 301 10^3/uL (130-400); WHITE BLOOD COUNT 12.5 10^3/uL (4.3-11.0)
[2020-05-23 18:09] LABS: ALBUMIN 3.5 GM/DL (3.2-4.5)
[2020-05-23 18:10] LABS: POTASSIUM 3.9 MMOL/L (3.6-5.0)
[2020-05-23 18:11] LABS: CALCIUM 8.3 MG/DL (8.5-10.1)
[2020-05-23 18:12] LABS: TOTAL PROTEIN 6.5 GM/DL (6.4-8.2)
[2020-05-23 18:14] LABS: BILIRUBIN,TOTAL 1.4 MG/DL (0.1-1.0)
[2020-05-23 18:16] LABS: CREATININE SERUM 2.04 MG/DL (0.60-1.30)
[2020-05-23] MEDS: LEVOFLOXACIN 500 MG TAB (LEVAQUIN) PO SCH ×2 (19:18→21:21)
[2020-05-23] MEDS: CARVEDILOL 3.125 MG (COREG) TABLET PO SCH ×2 (19:18→21:24)
[2020-05-23 19:23] LABS: EOSINOPHILS % (MANUAL) 2 %; LYMPHOCYTES % (MANUAL) 4 %; MONOCYTES % (MANUAL) 6 %; NEUTROPHILS % (MANUAL) 88 %; RBC MORPH NORMAL
[2020-05-23] MEDS: DOCUSATE SODIUM 100 MG (COLACE) CAP PO SCH ×3 (19:44→21:21)
[2020-05-23] MEDS: polyethylene glycoL POWDER 17 GM (MIRALAX) PACK PO SCH ×3 (19:45→21:19)
[2020-05-23] MEDS: SENNA W/DOCUSATE (SENOKOT S) TABLET PO SCH ×4 (19:56→21:24)
[2020-05-23] MEDS: MELATONIN 3 MG TABLET PO SCH (21:23)
[2020-05-23] MEDS: TICAGRELOR 90 MG TABLET (BRILINTA) PO SCH (21:25)
[2020-05-24 05:31] LABS: BASOPHILS # (AUTO) 0.1 10^3/uL (0.0-0.1); BASOPHILS % (AUTO) 1 % (0-10); EOSINOPHILS # (AUTO) 0.5 10^3/uL (0.0-0.3); EOSINOPHILS % (AUTO) 4 % (0-10); HEMATOCRIT 33 % (40-54); HEMOGLOBIN 10.4 g/dL (13.3-17.7); LYMPHOCYTES # (AUTO) 0.7 10^3/uL (1.0-4.0); LYMPHOCYTES % (AUTO) 6 % (12-44); MEAN CORPUSCULAR HEMOGLOBIN 31 pg (25-34); MEAN CORPUSCULAR HGB CONC 32 g/dL (32-36); MEAN CORPUSCULAR VOLUME 95 fL (80-99); MEAN PLATELET VOLUME 10.7 fL (9.0-12.2); MONOCYTES % (AUTO) 8 % (0-12); NEUTROPHILS # (AUTO) 9.7 10^3/uL (1.8-7.8); NEUTROPHILS % (AUTO) 80 % (42-75); PLATELET COUNT 297 10^3/uL (130-400); WHITE BLOOD COUNT 12.1 10^3/uL (4.3-11.0)
[2020-05-24 05:37] LABS: ALBUMIN 3.3 GM/DL (3.2-4.5)
[2020-05-24 05:39] LABS: CALCIUM 8.4 MG/DL (8.5-10.1)
[2020-05-24 05:40] LABS: TOTAL PROTEIN 6.2 GM/DL (6.4-8.2)
[2020-05-24 05:42] LABS: BILIRUBIN,TOTAL 1.2 MG/DL (0.1-1.0)
[2020-05-24 05:44] LABS: CREATININE SERUM 2.03 MG/DL (0.60-1.30)
[2020-05-24 06:00] VITALS: BP 106/63
[2020-05-24] MEDS: inSUlin ASPART (NovoLOG) 1 UNIT/0.01 ML (CHARGE PER UNIT) SC SCH ×4 (06:33→21:18)
[2020-05-24] MEDS: TICAGRELOR 90 MG TABLET (BRILINTA) PO SCH ×2 (08:57→21:17)
[2020-05-24] MEDS: CARVEDILOL 3.125 MG (COREG) TABLET PO SCH ×2 (08:57→18:09)
[2020-05-24] MEDS: ASPIRIN E.C. 81 MG (ECOTRIN) TAB PO SCH (08:57)
[2020-05-24] MEDS: SENNA W/DOCUSATE (SENOKOT S) TABLET PO SCH ×2 (09:00→21:09)
--- NOTE | 2020-05-24 09:01 | Consultation ---
History of Present Illness History of Present Illness Patient Consulted On(casandra/time) 05/24/20 09:01 Date Seen by Provider: May 24, 2020 Time Seen by Provider: 09:30 Reason for Visit: STATUS POST RESPIRATORY FAILURE, CARDIOGENIC SHOCK History of Present Illness NOMAN IS A 80 Y/O MALE WHO IS WELL KNOWN TO ME FROM CLINIC. HE PRESENTED TO THE HOSPITAL INPATIENT REHAB UNIT AFTER HAVING TREATMENT AT [facility] POST NSTEMI WITH ISCHEMIC CARDIOMYOPATHY WITH STENTING OF THE LAD, LEFT CIRCUMFLEX. HE HAS CONFUSION AND HAS BEEN REFUSING TO WORK WITH PHYSICAL THERAPY. HE NOTES THAT HE IS CONFUSED ABOUT WHY HE HAS TO PARTICIPATE IN THERAPY, HE IS FRUSTRATED WITH HIS INABILITY TO UNDERSTAND WHY HE HAS TO PARTICIPATE IN THERAPY. Allergies and Home Medications Allergies Coded Allergies: No Known Drug Allergies (Unverified , 01/10/19) Home Medications Acetaminophen 500 Mg Tablet, 1,000 MG PO Q6H PRN for PAIN-MILD (1-4) OR TEMPATURE, (Reported) Aspirin 81 Mg Tablet.dr, 81 MG PO DAILY, (Reported) Atorvastatin Calcium 40 Mg Tablet, 40 MG PO HS, (Reported) Calcium Carbonate 500 Mg Tablet, 500-1,000 MG PO Q4H PRN for INDIGESTION, (Reported) Carvedilol 3.125 Mg Tablet, 3.125 MG PO BID WITH MEALS, (Reported) Ergocalciferol (Vitamin D2) 1,250 Mcg Capsule, 1,250 MCG PO SUN, (Reported) Insulin Determir 1,000 Units/10 Ml Soln, 6 UNITS SQ 0800,2100, (Reported) Insulin Lispro 100 Unit/1 Ml Cartridge, UNIT SQ ACHS, (Reported) Levofloxacin 500 Mg Tablet, 500 MG PO Q48H, (Reported) Melatonin 3 Mg Tablet, 6 MG PO HS, (Reported) Ticagrelor 90 Mg Tablet, 90 MG PO BID, (Reported) Patient Home Medication List Home Medication List Reviewed: Yes Past Ormvdsx-Qsqbyb-Yqeusz Hx Past Med/Social Hx: Reviewed Nursing Past Med/Soc Hx, Reviewed and Corrections made Patient Social History Alcohol Use: Denies Use Smoking Status: Unknown if Ever Smoked 2nd Hand Smoke Exposure: No Recent Infectious Disease Expo: No Recent Hopitalizations: No Physical Abuse: No Sexual Abuse: No Mistreated: No Fear: No Have you traveled recently?: No Immunizations Up To Date Tetanus Booster (TDap): Unknown PED Vaccines UTD: No Seasonal Allergies Seasonal Allergies: No Past Medical History Surgeries: Yes (UMBILICAL HERNIA; CYSTOSCOPY/PROSTATE BIOPSY; BILATERAL CATARACT SURGERY) Abdominal, Coronary Stent, Eye Surgery Respiratory: No Cardiac: Yes Cardiomyopathy (05/14/20), Coronary Artery Disease, Heart Attack, High Cholesterol, Hypertension Neurological: No Stroke Reproductive Disorders: No Sexually Transmitted Disease: No HIV/AIDS: No Genitourinary: Yes (PROSTATE CANCER DX 03/2018) Prostate Problems, Kidney Stones, Renal Failure Gastrointestinal: Yes (UMBILICAL HERNIA REPAIR; POST RADIATION DIARRHEA/INCONTINENCE) Musculoskeletal: Yes Arthritis Endocrine: Yes Diabetes, Non-Insulin dep HEENT: Yes (S/P BILATERAL CATARACT SURGERY) Cataract Loss of Vision: Bilateral Hearing Impairment: Denies Cancer: Yes Prostate, Skin Did You Recieve Any Treatments: Yes What Type of Treatment Did You: Radiation Psychosocial: No Integumentary: No Blood Disorders: No Adverse Reaction/Blood Tranf: No (N/A) Family Medical History Reviewed Nursing Family Hx Heart Disease, Hypertension Review of Systems Review of Systems General: No Chills; Fatigue; No Malaise; Appetite (DECREASED) HEENT: No Head Aches, No Visual Changes Pulmonary: Dyspnea, Cough Cardiovascular: No: Chest Pain, Palpitations Gastrointestinal: Constipation; No: Nausea, Abdominal Pain Genitourinary: No Dysuria Musculoskeletal: No: back pain Neurological: Weakness, Confusion All Other Systems Reviewed All Other Systems Reviewed: Yes Physical Exam Vital Signs Vital Signs - First Documented 05/23/20 05/23/20 16:15 17:47 Temp 36.2 Pulse 73 Resp 16 B/P (MAP) 105/58 (74) Pulse Ox 100 O2 Delivery Room Air Capillary Refill : Less Than 3 Seconds Height, Weight, BMI Height: 5'6.00" Weight: 171lbs. 0.0oz. [id number]; 25.02 BMI Method:Estimated General Appearance: No Apparent Distress, WD/WN, Anxious Eyes: Bilateral Eye Normal Inspection, Bilateral Eye PERRL, Bilateral Eye EOMI HEENT: PERRL/EOMI Neck: Full Range of Motion, Normal Inspection, Non Tender, Supple Respiratory: Chest Non Tender, No Accessory Muscle Use, No Respiratory Distress, Crackles (CRACKLES IN RIGHT BASE) Cardiovascular: Regular Rate, Rhythm, No Edema Gastrointestinal: Normal Bowel Sounds, No Organomegaly, No Pulsatile Mass, Non Tender, Soft Rectal: Deferred Extremity: Normal Capillary Refill, Non Tender, No Calf Tenderness, No Pedal Edema Neurologic/Psychiatric: Alert, Oriented x3, No Motor/Sensory Deficits, Normal Mood/Affect, 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 Norm as Tested Skin: Normal Color, Warm/Dry Lymphatic: No Adenopathy Assessment/Plan Assessment/Plan Admission Status: Inpatient Order (span 2 midnights) (INPT REHAB UNIT) Reason for Inpatient Admission: INPT REHAB UNIT ADMISSION Assessment and Plan WILL HAVE FAMILY MEETING TOMORROW WITH HIS BROTHER DEQUAN FREDERICK AND SISTER BRETT ROJAS Problems: (1) Cardiomyopathy Qualifiers: Qualified Codes: I25.5 - Ischemic cardiomyopathy Assessment & Plan: EF OF 15% ON LAST ECHO (2) CKD (chronic kidney disease) stage 4, GFR 15-29 ml/min Assessment & Plan: STABLE RENAL FUNCTION ADJUST MEDICATIONS AVOID RENAL TOXIC AGENTS (3) CAD (coronary artery disease) Qualifiers: Qualified Codes: I25.10 - Atherosclerotic heart disease of [place] coronary artery without angina pectoris Assessment & Plan: PT IS STATUS POST 3 STENTS DEPLOYED BY [place] ACCOUNTING PROFESSIONAL, CONTINUE WITH [facility], MONITOR SYMPTOMS CLOSELY. PT'S ECHO AT [employer] SHOWED EF OF 15%, WILL NEED REHAB FOR STRENGTHENING. (4) Confusion (5) DMII (diabetes mellitus, type 2) Qualifiers: Qualified Codes: E11.22 - Type 2 diabetes mellitus with diabetic chronic kidney disease; N18.4 - Chronic kidney disease, stage 4 (severe); Z79.4 - retirement (current) use of insulin Assessment & Plan: PT HAS BEEN REFUSING FSBS AND INTERMITTENTLY REFUSING INSULIN - WILL MONITOR FSBS, ENCOURAGED PT TO ALLOW US TO TREAT HIM WE NEED IN ORDER TO FURTHER IMPROVE HIS HEALTH. (6) Cerebrovascular disease Assessment & Plan: EMBOLIC STROKE. (7) S/P coronary artery stent placement (8) Anemia Qualifiers: Qualified Codes: D50.8 - Other iron deficiency anemias (9) BPH (benign prostatic hyperplasia) Qualifiers: Qualified Codes: N40.1 - Benign prostatic hyperplasia with lower urinary tract symptoms; R35.0 - Frequency of micturition (10) Myopathy Diagnosis/Problems (1) Pneumonia Status: Acute Assessment & Plan: PT ON LEVAQUIN 500MG Q48H, MONITOR CHEST XRAY IN 2 DAYS. Qualifiers: (2) Cancer of prostate Status: Chronic (3) Septic embolism Status: Chronic RANDI VIGIL MD May 24, 2020 09:01
--- NOTE | 2020-05-24 09:34 | Diagnostic Imaging Report ---
EXAMINATION: Portable erect AP chest at 8:20 AM INDICATION: Cough FINDINGS: The heart size is within normal limits and stable when compared to the prior exam of 05/13/2020. The alveolar/interstitial infiltrates involving both perihilar regions seen previously have diminished. There is still some residual density in the right infrahilar region, however. The lungs are otherwise generally clear. There is no sign of a pleural effusion. The mediastinum is not widened. The osseous structures are intact. IMPRESSION: The appearance of the chest has improved since the prior exam as both perihilar regions are better aerated. There is still some residual pneumonia/atelectasis in the right infrahilar region. Dictated by: Dictated on workstation # [id number]
--- NOTE | 2020-05-24 10:13 | Physical Therapy Daily Note ---
PT Daily Note-Current Subjective Pt in bed upon arrival, in the dark. DIRECTOR OF DONOR RELATIONS introduced self, explained to pt that DIRECTOR OF DONOR RELATIONS would like to work on LE ex and ambulation. Pt refused. Pt states, "I'm tired and I don't want to do any of that." Mental Status Patient Orientation: Person, Place, Situation Transfers SCALE: Activities may be completed with or without assistive devices. 6-Eegzvyljck-esoxxht completes the activity by him/herself with no assistance from a helper. 5-Set-up or Clean-up Assistance-helper sets up or cleans up; patient completes activity. [place] assists only prior to or following the activity. 4-Supervision or Touching Assistance-helper provides verbal cues and/or touching/steadying and/or contact guard assistance as patient completes activity. Assistance may be provided throughout the activity or intermittently. 3-Partial/Moderate Assistance-helper does LESS THAN HALF the effort. [place] l ifts, holds or supports trunk or limbs, but provides less than half the effort. 2-Substantial/Maximal Assistance-helper does MORE THAN HALF the effort. [place] lifts or holds trunk or limbs and provides more than half the effort. 9-Sfrvbzssx-zunqzn does ALL the effort. Patient does none of the effort to complete the activity. Or, the assistance of 2 or more helpers is required for t he patient to complete the activity. If activity was not attempted, code reason: 7-Patient Refused. 9-Not Applicable-not attempted and the patient did not perform the activity before the current illness, exacerbation or injury. 10-Not Attempted due to Environmental Limitations-(lack of equipment, weather restraints, etc.). 88-Not Attempted due to Medical Conditions or Safety Concerns. Treatments Pt refused to participate in therapy. DIRECTOR OF DONOR RELATIONS offered different options and pt refused all. DIRECTOR OF DONOR RELATIONS educated pt on importance of participating in therapy and the requirements that are expected in order to be on this unit. Pt remained refusing. DIRECTOR OF DONOR RELATIONS informed RN. Pt remains in bed w/ call light and bedside table w/in reach and all needs met. Assessment Current Status: Poor Progress, Refused Treatment Refuses tx, no motivation, no drive to participate PT Short Term Goals Short Term Goals Time Frame: May 30, 2020 Roll Left & Right: 4 Sit to lyin Lying to sitting on side of be: 4 Sit to stand: 4 Chair/xdl-us-mfkdm transfer: 4 Toilet transfer: 4 Walk 10 feet: 4 PT Intermediate Goals Senior Statistician Goals PT Intermediate Goals Time Frame: Jun 13, 2020 Roll Left & Right (QC): 4 (SBA) Sit to Lying (QC): 4 (SBA) Lying-Sitting on Side/Bed(QC): 4 (SBA) Sit to Stand (QC): 4 (SBA) Chair/Cra-yr-Uodxt Xfer(QC): 4 (SBA) Toilet Transfer (QC): 4 (SBA) Car Transfer (QC): 4 (SBA) Does the Patient Walk: Yes Walk 10 feet (QC): 4 (SBA) Walk 50ft with 2 Turns (QC): 4 (SBA) Walk 150 ft (QC): 4 (SBA) Walking 10ft on Uneven Surface: 4 (SBA) 1 Step (curb) (QC): 4 (CGA) 4 Steps (QC): 4 (CGA) 12 Steps (QC): 4 (CGA) Picking up an Object (QC): 4 (CGA) Wheel 50 feet with 2 turns (QC: 6 Wheel 150 feet: 6 PT Plan Problem List Problem List: Activity Tolerance, Functional Strength, Safety, Balance, Gait, Transfer, Bed Mobility, ROM Treatment/Plan Treatment Plan: Continue Plan of Care Treatment Plan: Bed Mobility, Education, Functional Activity Yuri, Functional Strength, Group Therapy, Gait, Safety, Therapeutic Exercise, Transfers Treatment Duration: Jun 13, 2020 Frequency: At least 5 of 7 days/Wk (IRF) Estimated Hrs Per Day: 1.5 hours per day Patient and/or Family Agrees t: Yes Safety Risks/Education Patient Education: Safety Issues Teaching Recipient: Patient Teaching Methods: Discussion Response to Teaching: Verbalize Understanding Time/GCodes Time In: 912 Time Out: 927 Total Billed Treatment Time: 15 Total Billed Treatment 1, Educ 1:1 (15m) RBITTANY MACE DIRECTOR OF DONOR RELATIONS May 24, 2020 10:13
[2020-05-24] MEDS ORDERED: CHLORASEPTIC LOZENGE MM PRN (11:00)
[2020-05-24] MEDS ORDERED: CHLORASEPTIC LOZENGE MM ONE (11:00)
--- NOTE | 2020-05-24 11:18 | Physical Therapy Daily Note ---
PT Daily Note-Current Subjective ELECTRONIC PARTS DESIGNER returned to room d/t RN stating that pt agrees to participate. Upon entering the room, pt in bed w/ family member and Dr in room. After much discussion between pt, Dr, family member and ELECTRONIC PARTS DESIGNER, pt agrees to participate in PT tx. Pain Numeric Pain Scale: 0-No Pain Location: No Pain Reported Mental Status Patient Orientation: Person, Confused, Situation Attachments: IV Transfers SCALE: Activities may be completed with or without assistive devices. 4-Guqrbcmccs-mznyfoi completes the activity by him/herself with no assistance from a helper. 5-Set-up or Clean-up Assistance-helper sets up or cleans up; patient completes activity. [place] assists only prior to or following the activity. 4-Supervision or Touching Assistance-helper provides verbal cues and/or touching/steadying and/or contact guard assistance as patient completes activity. Assistance may be provided throughout the activity or intermittently. 3-Partial/Moderate Assistance-helper does LESS THAN HALF the effort. [place] lifts, holds or supports trunk or limbs, but provides less than half the effort. 2-Substantial/Maximal Assistance-helper does MORE THAN HALF the effort. [place] lifts or holds trunk or limbs and provides more than half the effort. 5-Obgtjydaa-jcwvys does ALL the effort. Patient does none of the effort to complete the activity. Or, the assistance of 2 or more helpers is required for the patient to complete the activity. If activity was not attempted, code reason: 7-Patient Refused. 9-Not Applicable-not attempted and the patient did not perform the activity before the current illness, exacerbation or injury. 10-Not Attempted due to Environmental Limitations-(lack of equipment, weather restraints, etc.). 88-Not Attempted due to Medical Conditions or Safety Concerns. Sit to Lying (QC): 3 Lying to Sitting/Side of Bed(Q: 4 Sit to Stand (QC): 4 Gait Training Does the Patient Walk?: Yes Distance: 25', 75', 25' Walk 10 feet (QC): 4 Gait Persons Needed: 2 Gait Assistive Device: FWW Pt ambulates w/ FWW and 1 staff following behind w/ w/c for safety. VC's for posture, FWW approximation and to decrease WB through BUE's Treatments Pt agrees to participate in therapy tx after much discussion between pt, family member, Dr and ELECTRONIC PARTS DESIGNER. Pt completes supine to sit w/ supervision. Pt sit<>stands from EOB using FWW w/ CGA; education and VC's for proper hand placement for push off. Pt requires 2 seated rest break during gait training. Pt sit<>stands from w/c using FWW; education and VC's for proper hand placement w/ push off/return to sit. Pt educated on backing up to chair/bed and making sure pt feels chair/bed on back of both legs before sitting. Worked on scooting laterally at EOB. Pt completes sitting to supine w/ ModA d/t pt inability to fully bring BLE's onto bed. Worked on double leg bridging to reposition self in bed. Pt and family member informed and educated on how IRF works. Pt in bed w/ call light and bedside table w/ in reach, family member in room and all needs met at end of tx. Assessment Current Status: Poor Progress Poor endurance, self limiting, decreased motivation. Needs to be educated and informed of exercises and the purpose of exercising in order for pt to be willing to participate and understand why pt is being asked to complete tasks. ELECTRONIC PARTS DESIGNER feels pt would benefit from PT/OT co-tx for the first week or two until pt endurance and trusts builds. PT Short Term Goals Short Term Goals Time Frame: May 30, 2020 Roll Left & Right: 4 Sit to lyin Lying to sitting on side of be: 4 Sit to stand: 4 Chair/wcg-gn-hsyns transfer: 4 Toilet transfer: 4 Walk 10 feet: 4 PT Group Home Goals Group Home Goals PT Chief Business Development Officer Goals Time Frame: Jun 13, 2020 Roll Left & Right (QC): 4 (SBA) Sit to Lying (QC): 4 (SBA) Lying-Sitting on Side/Bed(QC): 4 (SBA) Sit to Stand (QC): 4 (SBA) Chair/Xge-zz-Lkvnc Xfer(QC): 4 (SBA) Toilet Transfer (QC): 4 (SBA) Car Transfer (QC): 4 (SBA) Does the Patient Walk: Yes Walk 10 feet (QC): 4 (SBA) Walk 50ft with 2 Turns (QC): 4 (SBA) Walk 150 ft (QC): 4 (SBA) Walking 10ft on Uneven Surface: 4 (SBA) 1 Step (curb) (QC): 4 (CGA) 4 Steps (QC): 4 (CGA) 12 Steps (QC): 4 (CGA) Picking up an Object (QC): 4 (CGA) Wheel 50 feet with 2 turns (QC: 6 Wheel 150 feet: 6 PT Plan Problem List Problem List: Activity Tolerance, Functional Strength, Safety, Balance, Gait, Transfer, Bed Mobility, ROM Treatment/Plan Treatment Plan: Continue Plan of Care Treatment Plan: Bed Mobility, Education, Functional Activity Yuri, Functional Strength, Group Therapy, Gait, Safety, Therapeutic Exercise, Transfers Treatment Duration: Jun 13, 2020 Frequency: At least 5 of 7 days/Wk (IRF) Estimated Hrs Per Day: 1.5 hours per day Patient and/or Family Agrees t: Yes Safety Risks/Education Patient Education: Gait Training, Transfer Techniques, Correct Positioning, Safety Issues Teaching Recipient: Patient Teaching Methods: Discussion Response to Teaching: Verbalize Understanding, Reinforcement Needed Time/GCodes Time In: 1015 Time Out: 1106 Total Billed Treatment Time: 51 Total Billed Treatment 1, GT x1 (22m), FA x2 (29m) BRITTANY MACE ELECTRONIC PARTS DESIGNER May 24, 2020 11:18
[2020-05-24] MEDS: DOCUSATE SODIUM 100 MG (COLACE) CAP PO SCH ×2 (11:55→21:09)
[2020-05-24] MEDS: polyethylene glycoL POWDER 17 GM (MIRALAX) PACK PO SCH ×2 (11:55→21:09)
--- NOTE | 2020-05-24 12:36 | Occupational Ther Daily Note ---
OT Current Status-Daily Note Subjective Pt seen in room, up in bed, reluctant to do OT but willing to try. No pain mentioned. Appearance Alert, cooperative, fatigued ADL-Treatment Pt refused toileting, dressing and shower but did agree to sit up at EOB. Able to swing legs over edge of bed and needed cues and min assist for technique to sit up EOB. Sat unsupported for at least 40 minutes during ADLs, with no LOB. With warm bath pack, washed face, arms and chest, declining to wash other areas. Help to wash back and apply lotion to back but he put lotion on arms and face. Brushed teeth with setup, sitting EOB. Fed himself lunch with setup, including help opening drink can. Ate slowly and reported that he didn't have much of an appetite. Able to scoot towards top of bed and declined standing to sidestep toward top. Able to swing legs into bed and reposition himself, with cues. All ADLS requiring extra time. Pt left up in bed, 4 rails up with his OK, all needs met, brother in room. Pt pleased with progress after discussion. Therapy Code Descriptions/Definitions Functional [place] Measure: 0=Not Assessed/NA 4=Minimal Assistance 1=Total Assistance 5=Supervision or Setup 2=Maximal Assistance 6=Modified [place] 3=Moderate Assistance 7=Complete IndependenceSCALE: Activities may be completed with or without assistive devices. 1-Ojwlxutihu-eunurdi completes the activity by him/herself with no assistance from a helper. 5-Set-up or Clean-up Assistance-helper sets up or cleans up; patient completes activity. [place] assists only prior to or following the activity. 4-Supervision or Touching Assistance-helper provides verbal cues and/or touching/steadying and/or contact guard assistance as patient completes activity . Assistance may be provided throughout the activity or intermittently. 3-Partial/Moderate Assistance-helper does LESS THAN HALF the effort. [place] lifts, holds or supports trunk or limbs, but provides less than half the effort. 2-Substantial/Maximal Assistance-helper does MORE THAN HALF the effort. [place] lifts or holds trunk or limbs and provides more than half the effort. 2-Yjyopqixj-xprgnj does ALL the effort. Patient does none of the effort to complete the activity. Or, the assistance of 2 or more helpers is required for the patient to complete the activity. If activity was not attempted, code reason: 7-Patient Refused. 9-Not Applicable-not attempted and the patient did not perform the activity before the current illness, exacerbation or injury. 10-Not Attempted due to Environmental Limitations-(lack of equipment, weather restraints, etc.). 88-Not Attempted due to Medical Conditions or Safety Concerns. Eating (QC): 5 Oral Hygiene (QC): 5 Bathing Location: L Arm, R Arm, Chest Shower/Bathe Self (QC): 2 Upper Body Dressing (QC): 7 Lower Body Dressing (QC): 7 On/Off Footwear: 7 Toileting Hygiene (QC): 7 Toilet Transfer (QC): 7 Education OT Patient Education: Modified ADL techniques, Progress toward Goal/Update tx plan, Purpose of tx/functional activities Teaching Recipient: Patient, Family Teaching Methods: Demonstration, Discussion Response to Teaching: Verbalize Understanding, Return Demonstration, Reinforcement Needed OT Short Term Goals Short Term Goals Eatin Oral hygiene: 5 Toileting hygiene: 3 Shower/bathe self: 3 Upper body dressin Lower body dressin Putting on/taking off footwear: 3 OT Snf Goals Snf Goals Time Frame: Jun 06, 2020 Eating (QC): 6 Oral Hygiene (QC): 6 Toileting Hygiene (QC): 6 Shower/Bathe Self (QC): 4 Upper Body Dressing (QC): 6 Lower Body Dressing (QC): 4 On/Off Footwear (QC): 4 Additional Goals: 1-Demonstrate ADL Tasks, 2-Verbalize Understanding, 3- ImproveStrength/Yuri 1=Demonstrate adherence to instructed precautions during ADL tasks. 2=Patient will verbalize/demonstrate understanding of assistive devices/modifications for ADL. 3=Patient will improve strength/tolerance for activity to enable patient to perform ADL's. OT Education/Plan Discharge Recommendations Plan/Recommendations: Continue POC Treatment Plan/Plan of Care Patient would benefit from OT for education, treatment and training to promote independence in ADL's, mobility, safety and/or upper extremity function for ADL's. Plan of Care: ADL Retraining, Caregiver Training, Concurrent Therapy, Functional Mobility, Group Exercise/Act as Ind, UE Funct Exercise/Act, UE Neuromus Re-Ed/Coord, W/C Management Training Treatment Duration: Jun 06, 2020 Frequency: At least 5 of 7 days/Wk (IRF) Estimated Hrs Per Day: 1.5 hours per day Agreement: Yes Rehab Potential: Poor Time/GCodes Start Time: 11:30 Stop Time: 12:23 Total Time Billed (hr/min): 53 Billed Treatment Time visit, 53 minutes ADL JOEL SHORT OT May 24, 2020 12:36
--- NOTE | 2020-05-24 12:37 | PM&R Progress Note ---
Subjective HPI/CC On Admission Date Seen by Provider: May 24, 2020 Time Seen by Provider: 12:00 Subjective/Events-last exam 05/24/20: Patient confused Sometimes willing to participate Slow processing per PCP after I conferred with her indepth about his hx Incontinent of urine noted Levaquin maintained for RLL PNA CXR reviewed Review of Systems General: Fatigue Neurological: Weakness, Incoordination, Confusion Objective Exam Vital Signs Vital Signs Date Time Temp Pulse Resp B/P (MAP) Pulse Ox O2 Delivery O2 Flow Rate FiO2 05/25/20 09:00 Room Air 05/25/20 05:33 36.4 79 16 108/53 (71) 97 Capillary Refill : Less Than 3 Seconds General Appearance: No Apparent Distress, WD/WN, Anxious HEENT: PERRL/EOMI Neck: Full Range of Motion, Normal Inspection, Non Tender, Supple Respiratory: Chest Non Tender, No Accessory Muscle Use, No Respiratory Distress, Crackles (CRACKLES IN RIGHT BASE) Cardiovascular: Regular Rate, Rhythm, No Edema Gastrointestinal: Normal Bowel Sounds, No Organomegaly, No Pulsatile Mass, Non Tender, Soft Rectal: Deferred Back: Normal Inspection, No CVA Tenderness, No Vertebral Tenderness Extremity: Normal Capillary Refill, Non Tender, No Calf Tenderness, No Pedal Edema Neurologic/Psychiatric: Alert, Oriented x3, No Motor/Sensory Deficits, Normal Mood/Affect, ink blender II-XII Norm as Tested Skin: Normal Color, Warm/Dry Lymphatic: No Adenopathy Results/Procedures Lab Laboratory Tests 05/25/20 05:26 Patient resulted labs reviewed. FIM Transfers Therapy Code Descriptions/Definitions Functional [place] Measure: 0=Not Assessed/NA 4=Minimal Assistance 1=Total Assistance 5=Supervision or Setup 2=Maximal Assistance 6=Modified [place] 3=Moderate Assistance 7=Complete IndependenceSCALE: Activities may be completed with or without assistive devices. 5-Tqtfsdovyz-scnzdbn completes the activity by him/herself with no assistance f rom a helper. 5-Set-up or Clean-up Assistance-helper sets up or cleans up; patient completes activity. [place] assists only prior to or following the activity. 4-Supervision or Touching Assistance-helper provides verbal cues and/or touching/steadying and/or contact guard assistance as patient completes activity. Assistance may be provided throughout the activity or intermittently. 3-Partial/Moderate Assistance-helper does LESS THAN HALF the effort. [place] lifts, holds or supports trunk or limbs, but provides less than half the effort. 2-Substantial/Maximal Assistance-helper does MORE THAN HALF the effort. [place] lifts or holds trunk or limbs and provides more than half the effort. 9-Cdtouhstt-arupda does ALL the effort. Patient does none of the effort to complete the activity. Or, the assistance of 2 or more helpers is required for the patient to complete the activity. If activity was not attempted, code reason: 7-Patient Refused. 9-Not Applicable-not attempted and the patient did not perform the activity before the current illness, exacerbation or injury. 10-Not Attempted due to Environmental Limitations-(lack of equipment, weather restraints, etc.). 88-Not Attempted due to Medical Conditions or Safety Concerns. Roll Left to Right (QC): 3 Sit to Lying (QC): 3 Sit to Stand (QC): 4 Chair/Vmg-if-Gdctq Xfer(QC): 3 Car Transfer (QC): 7 Gait Training Does the Patient Walk?: Yes Distance: 25', 75', 25' Walk 10 feet (QC): 4 Walk 50 ft with 2 Turns(QC): 7 Walk 150 ft (QC): 7 Walking 10ft/uneven surface-QC: 7 Gait Persons Needed: 2 Gait Assistive Device: FWW Wheelchair Training Wheel 50 ft with 2 turns (QC): 7 Wheel 150 ft (QC): 7 Stair Training 1 Step (curb) (QC): 7 4 Steps (QC): 7 12 Steps (QC): 7 Balance Picking up an Object (QC): 7 ADL-Treatment Eating (QC): 7 Oral Hygiene (QC): 7 Shower/Bathe Self (QC): 7 Upper Body Dressing (QC): 7 Lower Body Dressing (QC): 7 On/Off Footwear (QC): 7 Toileting Hygiene (QC): 7 Assessment/Plan Assessment and Plan Assess & Plan/Chief Complaint Assessment: Critical illness myopathy s/p cardiogenic shock CKD Stage 4 HTN DM Confusion 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 Qualifiers: Laterality: right Lung location: lower lobe of lung (2) Cancer of prostate Status: Chronic (3) Septic embolism Status: Chronic GHADA SANDOVAL DO May 24, 2020 12:37
--- NOTE | 2020-05-24 12:37 | Individualized Plan of Care ---
Individualized Plan of Care Rehab Nursing IPOC Order Admission Date May 23, 2020 at 14:40 Current Orders Orders Admission Order(Inpt,Obs,Sdc) (05/22/20 07:12) Vital Signs: Per Unit Policy ( 08,16,00 (05/22/20 07:12) Artem Toribio (05/22/20 07:12) Sequential Compression Device Q4H (05/22/20 07:12) Network Professional-Inpt Rehab Con (05/22/20 07:12) Rehab Nursing Orders-Ipoc (05/22/20 07:12) Physical Therapy Rehab Orders (05/22/20 07:12) Occupational Therapy Rehab Ord (05/22/20 07:12) Speech Therapy Rehab Orders (05/22/20 07:12) Cbc With Automated Diff (05/23/20 06:00) Comprehensive Metabolic Panel (05/23/20 06:00) Intake & Output 06,14,22 (05/22/20 07:12) Precautions (Aru) (05/22/20 07:12) Rehab-Intensity Of Therapy (05/22/20 07:12) Initiate Admission Nursing Pro .admission (05/22/20 07:12) Alprazolam Tablet (Xanax Tablet) (05/22/20 07:15) Calcium Carbonate Chew Tablet (Antacid C (05/22/20 07:15) Diphenhydramine Tablet (Benadryl Tablet) (05/22/20 07:15) Docusate Sodium Capsule (Colace Capsule) (05/22/20 09:00) Docusate Sodium Capsule (Colace Capsule) (05/22/20 07:15) Bisacodyl Suppository (Dulcolax Supposit (05/22/20 07:15) Lactulose Oral Solution (Enulose Oral So (05/22/20 07:15) Na Phos/Na Biphos Enema (Fleet Enema Andrew (05/22/20 07:15) Guaifenesin/Codeine Syrup (Robitussin Ac (05/22/20 07:15) Loperamide Tablet (Imodium Tablet) (05/22/20 07:15) Melatonin Tablet (Melatonin Tablet) (05/22/20 07:15) Polyethylene Glycol Powder Pkt (Miralax (05/22/20 09:00) Ondansetron Oral Dissolve Tab (Zofran (05/22/20 07:15) Senna S Tablet (Senokot S Tablet) (05/22/20 09:00) Initiate Admission Nursing Pro .admission (05/22/20 07:12) Admission Arrival Bed Request (05/23/20 14:45) Patient Visit (05/23/20 ) Pt Eval Moderate Complexity (05/23/20 ) Acetaminophen Tablet/Caplet (Tylenol T (05/23/20 15:45) Acetaminophen Tablet (Tylenol Tablet) (05/23/20 17:45) Aspirin Enteric Coated Tablet (Ecotrin T (05/24/20 09:00) Atorvastatin Tablet (Lipitor) (05/23/20 21:00) Carvedilol Tablet (Coreg Tablet) (05/23/20 18:00) Ergocalciferol Capsule (Vitamin D2 Capsu (05/23/20 17:45) Levofloxacin Tablet (Levaquin Tablet) (05/23/20 17:45) Melatonin Tablet (Melatonin Tablet) (05/23/20 21:00) Ticagrelor Tablet (Brilinta Tablet) (05/23/20 21:00) Calcium Carbonate Chew Tablet (Antacid C (05/23/20 18:00) Heart Healthy (05/23/20 Dinner) Insulin Determir (Per Unit) (Levemir (Pe (05/23/20 21:00) Manual Differential (05/23/20 17:53) Cbc With Automated Diff (05/24/20 06:00) Comprehensive Metabolic Panel (05/24/20 06:00) Chest 1 View, Ap/Pa Only (05/24/20 08:00) Cho 75g/M 3snack (21-2400 Sagar) (05/24/20 Breakfast) Insulin Aspart (Novolog) (Novolog (Charg (05/24/20 06:00) Phenol/Na Phenolate Lozenge (Chlorasepti (05/24/20 11:00) Phenol/Na Phenolate Lozenge (Chlorasepti (05/24/20 11:00) Cbc No Diff (05/25/20 05:00) Cbc No Diff (05/26/20 05:00) Comprehensive Metabolic Panel (05/25/20 05:00) Comprehensive Metabolic Panel (05/26/20 05:00) Patient Visit (05/24/20 ) Educ/Train Slf Mgmt 30min Indv (05/24/20 ) Gait Training, Ea 15 Min (05/24/20 ) Functional Activities, Ea 15 (05/24/20 ) Guaifenesin/Codeine Syrup (Robitussin Ac (05/24/20 13:00) Benzonatate Capsule (Tessalon Perles) (05/24/20 13:00) Accucheck Achs ACHS (05/24/20 15:50) Sodium Chloride Flush (Catheter Flush Sy (05/24/20 22:00) Sodium Chloride Flush (Catheter Flush Sy (05/24/20 17:30) Insulin Determir (Per Unit) (Levemir (Pe (05/25/20 21:00) Diet Order UD (05/25/20 11:16) Incentive Spirometry Initial (05/25/20 11:17) Incentive Spirometry (Nursing) Q2H (05/25/20 11:17) Rehab Nursing Orders: Ongoing Assess. of Cognitive Status, Ongoing Assess. of Function Status, Bladder Management, Bladder Scan, Bladder Training, Bowel Management, Bowel Training, Disease Management & Educaiton, DVT Prophylaxis, Fall Prevention, Fluid/Electrolyte/Nutrition Mgmt, Infection Prevention, Medication Management & Education, Management of Risks & Complications, Management of Skin Intergrity, Nutrition Management, Pain Management, Patient/Family Support, Safety Management Intensity of Therapy to be met Patient to be seen: Min.3h per day/5 of 7d PT IPOC Problem List: Activity Tolerance, Functional Strength, Safety, Balance, Gait, Transfer, Bed Mobility, ROM Treatment Plan: Continue Plan of Care Bed Mobility, Education, Functional Activity Yuri, Functional Strength, Group Therapy, Gait, Safety, Therapeutic Exercise, Transfers Treatment Duration: Jun 13, 2020 Frequency: At least 5 of 7 days/Wk (IRF) Estimated Hrs Per Day: 1.5 hours per day OT IPOC Problems: Decreased Activ Tolerance, Decreased Safety Aware, Dependent Transfers, Impaired Bed Mobility, Impaired Funct Balance, Impaired I ADL's, Impaired Self-Care Skills OT Treatment, Training and Edu: Yes Plan of Care: ADL Retraining, Caregiver Training, Concurrent Therapy, Functional Mobility, Group Exercise/Act as Ind, UE Funct Exercise/Act, UE Neur omus Re-Ed/Coord, W/C Management Training Treatment Duration: Jun 06, 2020 Frequency: At least 5 of 7 days/Wk (IRF) Estimated Hrs Per Day: 1.[address] IPOC Speech Therapy Treatment Plan: Modify Plan, See Comments Treatment Duration: May 23, 2020 Frequency: Modified Program (IRF) Estimated Hrs Per Day: Other Network Professional/Case Mgmt Network Professional/Case Managemen: Discharge Planning Dietitian/Billiard Table Assembler Dietitian/Billiard Table Assembler to monitor nutritional status and make changes and/or recommendations as needed and work with speech pathology on dietary upgrades as the occur. Physician IPOC Medical Issues being managed closely and that require the 24 hour availability of a physician: Recent stroke now with confusion and RLL PNA and CKD stage 4 will need close monitoring of status since high risk for decompensation Medical Issues: Bowel/Bladder Function, DVT Prophylaxis, Falls Precautions, Fluid/Electrolyte/Nutrition Balance, Infection Protection, Pain Management Brief Synthesis of Preadmission Screen, Post-Admission Evaluation, and Therapy Evaluations: PT OT will help focus patient on regaining strength and ST will focus on regaining cognition and decrease confusion Medical Prognosis: Good Anticipated Length of Stay: 14 days GHADA SANDOVAL DO May 24, 2020 12:37
[2020-05-24] MEDS: guaiFENesin/CODEINE (ROBITUSSIN AC) 10ML UDC PO SCH ×3 (13:00→21:18)
[2020-05-24] MEDS: BENZONATATE 100 MG (TESSALON) CAPSULE PO SCH ×2 (13:00→21:17)
[2020-05-24 17:16] VITALS: BP 106/56
[2020-05-24] MEDS ORDERED: CATHETER FLUSH 10 ML SYR IV PRN (17:30)
[2020-05-24] MEDS: MELATONIN 3 MG TABLET PO SCH (21:21)
[2020-05-24] MEDS: CATHETER FLUSH 10 ML SYR IV SCH (21:34)
[2020-05-25] MEDS: guaiFENesin/CODEINE (ROBITUSSIN AC) 10ML UDC PO SCH ×7 (00:29→21:45)
[2020-05-25] MEDS: CATHETER FLUSH 10 ML SYR IV SCH ×3 (05:31→20:56)
[2020-05-25] MEDS: inSUlin ASPART (NovoLOG) 1 UNIT/0.01 ML (CHARGE PER UNIT) SC SCH ×4 (05:31→20:56)
[2020-05-25 05:33] VITALS: BP 108/53
[2020-05-25 06:02] LABS: HEMOGLOBIN 10.2 g/dL (13.3-17.7); MEAN PLATELET VOLUME 10.4 fL (9.0-12.2); WHITE BLOOD COUNT 12.1 10^3/uL (4.3-11.0)
[2020-05-25 06:07] LABS: ALBUMIN 3.1 GM/DL (3.2-4.5); POTASSIUM 3.7 MMOL/L (3.6-5.0)
[2020-05-25 06:08] LABS: CALCIUM 8.4 MG/DL (8.5-10.1)
[2020-05-25 06:10] LABS: TOTAL PROTEIN 6.1 GM/DL (6.4-8.2)
[2020-05-25 06:12] LABS: BILIRUBIN,TOTAL 1.2 MG/DL (0.1-1.0)
[2020-05-25 06:13] LABS: CREATININE SERUM 2.02 MG/DL (0.60-1.30)
[2020-05-25 08:00] VITALS: BP 129/60
[2020-05-25] MEDS: ASPIRIN E.C. 81 MG (ECOTRIN) TAB PO SCH (09:09)
[2020-05-25] MEDS: CARVEDILOL 3.125 MG (COREG) TABLET PO SCH ×2 (09:09→18:03)
[2020-05-25] MEDS: TICAGRELOR 90 MG TABLET (BRILINTA) PO SCH ×2 (09:09→20:56)
[2020-05-25] MEDS: DOCUSATE SODIUM 100 MG (COLACE) CAP PO SCH ×2 (09:17→20:29)
[2020-05-25] MEDS: SENNA W/DOCUSATE (SENOKOT S) TABLET PO SCH ×2 (09:17→20:30)
[2020-05-25] MEDS: polyethylene glycoL POWDER 17 GM (MIRALAX) PACK PO SCH ×2 (09:17→20:30)
--- NOTE | 2020-05-25 09:48 | Progress Note ---
Subjective Subjective Date Seen by Provider: May 25, 2020 Time Seen by Provider: 09:50 PT REPORTS THAT HE IS FEELING A LITTLE BIT BETTER TODAY - HE REPORTS THAT HE IS COUGHING A LITTLE LESS. HE IS FEELING LESS ANXIOUS AND HE PARTICIPATED IN THERAPY YESTERDAY AND REALIZED HE DOES NEED MORE HELP THAN HE FIRST EXPECTED. HE IS ANXIOUS ABOUT THE PLANS FOR HOME. Review of Systems General: No Chills; Fatigue; No Malaise; Appetite (DECREASED) HEENT: No Head Aches, No Visual Changes Pulmonary: Dyspnea, Cough Cardiovascular: No: Chest Pain, Palpitations Gastrointestinal: Constipation; No: Nausea, Abdominal Pain Genitourinary: No Dysuria Musculoskeletal: No: back pain Neurological: Weakness, Confusion All Other Systems Reviewed All Other Systems Reviewed: Yes Objective Exam Vital Signs Vital Signs - First Documented 05/23/20 05/23/20 16:15 17:47 Temp 36.2 Pulse 73 Resp 16 B/P (MAP) 105/58 (74) Pulse Ox 100 O2 Delivery Room Air Capillary Refill : Less Than 3 Seconds General Appearance: No Apparent Distress, WD/WN Eyes: Bilateral Eye Normal Inspection, Bilateral Eye PERRL, Bilateral Eye EOMI HEENT: PERRL/EOMI Neck: Full Range of Motion, Normal Inspection, Non Tender, Supple Respiratory: Chest Non Tender, No Accessory Muscle Use, No Respiratory Distress Cardiovascular: Regular Rate, Rhythm, No Edema Gastrointestinal: Normal Bowel Sounds, No Organomegaly, No Pulsatile Mass, Non Tender, Soft Rectal: Deferred Back: Normal Inspection, No CVA Tenderness, No Vertebral Tenderness Extremity: Normal Capillary Refill, Non Tender, No Calf Tenderness, No Pedal Edema Neurologic/Psychiatric: Alert, Oriented x3, No Motor/Sensory Deficits, Normal Mood/Affect, 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 Norm as Tested Skin: Normal Color, Warm/Dry Lymphatic: No Adenopathy Results Lab Laboratory Tests 05/24/20 11:24: Glucometer 185H 05/24/20 16:33: Glucometer 137H 05/24/20 21:03: Glucometer 214H 05/25/20 05:25: Glucometer 53*L 05/25/20 05:26: White Blood Count 12.1H, Red Blood Count 3.38L, Hemoglobin 10.2L, Hematocrit 32L , Mean Corpuscular Volume 95, Mean Corpuscular Hemoglobin 30, Mean Corpuscular Hemoglobin Concent 32, Red Cell Distribution Width 15.3H, Platelet Count 365, Mean Platelet Volume 10.4, Sodium Level 135, Potassium Level 3.7, Chloride Level 105, Carbon Dioxide Level 19L, Anion Gap 11, Blood Urea Nitrogen 38H, Creatinine 2.02H, Estimat Glomerular Filtration Rate 32, BUN/Creatinine Ratio 19, Glucose Level 54*L, Calcium Level 8.4L, Corrected Calcium 9.1, Total Bilirubin 1.2H, Aspartate Amino Transf (AST/SGOT) 33, Alanine Aminotransferase (ALT/SGPT) 34, Alkaline Phosphatase 85, Total Protein 6.1L, Albumin 3.1L 05/25/20 06:54: Glucometer 102 05/25/20 09:01: Glucometer 188H Assessment/Plan Assessment/Plan Assessment and Plan FAMILY MEETING TODAY WITH HIS BROTHER DEQUAN FREDERICK AND SISTER BRETT ROJAS - THEY HAVE MULTIPLE QUESTIONS ABOUT HOW BEST TO HELP NOMAN WHEN HE GOES HOME. THEY ARE WONDERING ABOUT HIS HOME SITUATION, HOME HEALTH, HOW BEST TO GET HIS HOME READY FOR HIM TO RESIDE THERE ALONE. THEY ARE WANTING TO KNOW IF A HOME EVAL CAN BE DONE PRIOR TO NOMAN'S DISCHARGE SO THAT CAN GET THE HOME PREPARED FOR HIM SAFELY POSSIBLE. Problems: (1) Pneumonia Qualifiers: Assessment & Plan: PT ON LEVAQUIN 500MG Q48H, MONITOR CHEST XRAY IN 2 DAYS. (2) Acute on chronic kidney failure Qualifiers: Qualified Codes: N17.9 - Acute kidney failure, unspecified; N18.4 - Chronic kidney disease, stage 4 (severe) Assessment & Plan: CONTINUE TO AVOID NEPHROTOXIC AGENTS WILL SEE DR. PORTILLO OUTPATIENT IN FOLLOW UP. (3) Acute and subacute ischemic heart disease Assessment & Plan: PT HAS EJECTION FRACTION OF 15% ON EVALUATION AT [facility]. 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 (5) Cancer of prostate Assessment & Plan: CONTINUE WITH SUPPORTIVE CARE (6) CKD (chronic kidney disease) stage 4, GFR 15-29 ml/min (7) Cerebrovascular disease Assessment & Plan: STATUS POST EMBOLIC STROKE - PT NEEDS THERAPY FOR STRENGTHENING AND WILL NEED OUTPATIENT THERAPY ON DISCHARGE. (8) S/P coronary artery stent placement (9) BPH (benign prostatic hyperplasia) Qualifiers: Qualified Codes: N40.1 - Benign prostatic hyperplasia with lower urinary tract symptoms; R35.0 - Frequency of micturition (10) Cardiomyopathy Qualifiers: Qualified Codes: I25.5 - Ischemic cardiomyopathy RANDI VIGIL MD May 25, 2020 09:48
[2020-05-25] MEDS: BENZONATATE 100 MG (TESSALON) CAPSULE PO SCH ×3 (09:58→20:55)
--- NOTE | 2020-05-25 12:00 | PM&R Progress Note ---
Subjective HPI/CC On Admission Date Seen by Provider: May 25, 2020 Time Seen by Provider: 11:45 Subjective/Events-last exam 05/25/20: Much improved Good family meeting Family at bedside RLL PNA crackles noted Cough improved with meds Decreased confusion Appetite better BM++ 05/24/20: Patient confused Sometimes willing to participate Slow processing per PCP after I conferred with her indepth about his hx Incontinent of urine noted Levaquin maintained for RLL PNA CXR reviewed Review of Systems General: Fatigue, Malaise Neurological: Weakness Objective Exam Vital Signs Vital Signs Date Time Temp Pulse Resp B/P (MAP) Pulse Ox O2 Delivery O2 Flow Rate FiO2 05/25/20 09:00 Room Air 05/25/20 05:33 36.4 79 16 108/53 (71) 97 Capillary Refill : Less Than 3 Seconds General Appearance: No Apparent Distress, WD/WN, Anxious HEENT: PERRL/EOMI Neck: Full Range of Motion, Normal Inspection, Non Tender, Supple Respiratory: Chest Non Tender, No Accessory Muscle Use, No Respiratory Distress, Crackles (CRACKLES IN RIGHT BASE) Cardiovascular: Regular Rate, Rhythm, No Edema Gastrointestinal: Normal Bowel Sounds, No Organomegaly, No Pulsatile Mass, Non Tender, Soft Rectal: Deferred Back: Normal Inspection, No CVA Tenderness, No Vertebral Tenderness Extremity: Normal Capillary Refill, Non Tender, No Calf Tenderness, No Pedal Edema Neurologic/Psychiatric: Alert, Oriented x3, No Motor/Sensory Deficits, Normal Mood/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 FIM Transfers Therapy Code Descriptions/Definitions Functional [employer] Measure: 0=Not Assessed/NA 4=Minimal Assistance 1=Total Assistance 5=Supervision or Setup 2=Maximal Assistance 6=Modified [employer] 3=Moderate Assistance 7=Complete IndependenceSCALE: Activities may be completed with or without assistive devices. 9-Iuaxgdywpe-qffovve completes the activity by him/herself with no assistance from a helper. 5-Set-up or Clean-up Assistance-helper sets up or cleans up; patient completes activity. [place] assists only prior to or following the activity. 4-Supervision or Touching Assistance-helper provides verbal cues and/or touching/steadying and/or contact guard assistance as patient completes activity. Assistance may be provided throughout the activity or intermittently. 3-Partial/Moderate Assistance-helper does LESS THAN HALF the effort. [place] lifts, holds or supports trunk or limbs, but provides less than half the effort. 2-Substantial/Maximal Assistance-helper does MORE THAN HALF the effort. [place] lifts or holds trunk or limbs and provides more than half the effort. 9-Efbmonwix-sjyhwi does ALL the effort. Patient does none of the effort to complete the activity. Or, the assistance of 2 or more helpers is required for the patient to complete the activity. If activity was not attempted, code reason: 7-Patient Refused. 9-Not Applicable-not attempted and the patient did not perform the activity before the current illness, exacerbation or injury. 10-Not Attempted due to Environmental Limitations-(lack of equipment, weather restraints, etc.). 88-Not Attempted due to Medical Conditions or Safety Concerns. Roll Left to Right (QC): 3 Sit to Lying (QC): 3 Sit to Stand (QC): 4 Chair/Qac-fp-Rfbld Xfer(QC): 3 Car Transfer (QC): 7 Gait Training Does the Patient Walk?: Yes Distance: 25', 75', 25' Walk 10 feet (QC): 4 Walk 50 ft with 2 Turns(QC): 7 Walk 150 ft (QC): 7 Walking 10ft/uneven surface-QC: 7 Gait Persons Needed: 2 Gait Assistive Device: FWW Wheelchair Training Wheel 50 ft with 2 turns (QC): 7 Wheel 150 ft (QC): 7 Stair Training 1 Step (curb) (QC): 7 4 Steps (QC): 7 12 Steps (QC): 7 Balance Picking up an Object (QC): 7 ADL-Treatment Eating (QC): 5 Oral Hygiene (QC): 5 Bathing Location: L Arm, R Arm, Chest Shower/Bathe Self (QC): 2 Upper Body Dressing (QC): 7 Lower Body Dressing (QC): 7 On/Off Footwear (QC): 7 Toileting Hygiene (QC): 7 Toilet Transfer (QC): 7 Assessment/Plan Assessment and Plan Assess & Plan/Chief Complaint Assessment: Critical illness myopathy s/p cardiogenic shock CKD Stage 4 HTN DM Confusion Cebrovascular disease on MRI Fall risk Plan: IRF protocol Monitor closely Monitor creat Cardiology consultation 2/20/21: Fall risk Incontinence Monitor confusion PCP meeting tomorrow with family 05/25/20: Improved status today Improved strength Less confusion (1) Pneumonia Status: Acute Assessment & Plan: PT ON LEVAQUIN 500MG Q48H, MONITOR CHEST XRAY IN 2 DAYS. Qualifiers: Laterality: right Lung location: lower lobe of lung (2) Acute on chronic kidney failure Assessment & Plan: CONTINUE TO AVOID NEPHROTOXIC AGENTS WILL SEE DR. PORTILLO OUTPATIENT IN FOLLOW UP. Qualifiers: Acute renal failure type: unspecified Chronic kidney disease stage: stage 4 (severe) Qualified Codes: N17.9 - Acute kidney failure, unspecified; N18.4 - Chronic kidney disease, stage 4 (severe) (3) Acute and subacute ischemic heart disease Assessment & Plan: PT HAS EJECTION FRACTION OF 15% ON EVALUATION AT [facility]. (4) DMII (diabetes mellitus, type 2) Assessment & Plan: PT ON LEVEMIR - 6UNITS BID - WILL DECREASE DOWN TO 5 UNITS BID AND ENCOURAGE HIM TO HAVE A SNACK OF AT LEAST 15 GRAMS OF PROTEIN AT . 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 (8) S/P coronary artery stent placement (9) BPH (benign prostatic hyperplasia) Qualifiers: Lower urinary tract symptom presence: symptoms present Lower urinary tract symptom detail: urinary frequency Qualified Codes: N40.1 - Benign prostatic hyperplasia with lower urinary tract symptoms; R35.0 - Frequency of micturition (10) Cardiomyopathy Qualifiers: Cardiomyopathy type: ischemic Qualified Codes: I25.5 - Ischemic cardiomyopathy GHADA SANDOVAL DO May 25, 2020 12:00
[2020-05-25 17:15] VITALS: BP 111/58
[2020-05-25] MEDS: LEVOFLOXACIN 500 MG TAB (LEVAQUIN) PO SCH (18:03)
[2020-05-25] MEDS: MELATONIN 3 MG TABLET PO SCH (20:55)
[2020-05-26] MEDS: guaiFENesin/CODEINE (ROBITUSSIN AC) 10ML UDC PO SCH ×6 (01:17→21:20)
[2020-05-26 05:19] VITALS: BP 119/56
[2020-05-26 05:42] LABS: HEMOGLOBIN 10.4 g/dL (13.3-17.7); MEAN PLATELET VOLUME 10.4 fL (9.0-12.2); WHITE BLOOD COUNT 10.7 10^3/uL (4.3-11.0)
[2020-05-26 05:47] LABS: ALBUMIN 3.2 GM/DL (3.2-4.5)
[2020-05-26 05:48] LABS: POTASSIUM 4.4 MMOL/L (3.6-5.0)
[2020-05-26 05:49] LABS: CALCIUM 8.6 MG/DL (8.5-10.1)
[2020-05-26 05:50] LABS: TOTAL PROTEIN 6.4 GM/DL (6.4-8.2)
[2020-05-26 05:54] LABS: CREATININE SERUM 2.15 MG/DL (0.60-1.30)
[2020-05-26] MEDS: inSUlin ASPART (NovoLOG) 1 UNIT/0.01 ML (CHARGE PER UNIT) SC SCH ×5 (06:09→21:18)
[2020-05-26] MEDS: CATHETER FLUSH 10 ML SYR IV SCH ×2 (06:18→21:17)
[2020-05-26] MEDS: BENZONATATE 100 MG (TESSALON) CAPSULE PO SCH ×3 (08:18→21:16)
[2020-05-26] MEDS: ASPIRIN E.C. 81 MG (ECOTRIN) TAB PO SCH (08:19)
[2020-05-26] MEDS: CARVEDILOL 3.125 MG (COREG) TABLET PO SCH ×2 (08:19→17:33)
[2020-05-26] MEDS: TICAGRELOR 90 MG TABLET (BRILINTA) PO SCH ×2 (08:19→21:16)
--- NOTE | 2020-05-26 08:33 | Progress Note ---
Subjective Subjective Date Seen by Provider: May 26, 2020 Time Seen by Provider: 08:45 PT IS IRRITABLE TODAY - PER STAFF HE WAS REFUSING HIS INSULIN AND THEY FINALLY TALKED HIM INTO LETTING THEM GIVE HIM THE SHOT HE NEEDED. HE REPORTS THAT HE JUST DOES NOT UNDERSTAND WHY HE IS IN THE HOSPITAL AND WHY HE HAS BEEN HERE FOR "SO LONG". WHEN I QUESTIONED HIM TO HOW LONG HE FELT LIKE HE HAD BEEN HERE - HE REPORTS THAT HE HAS BEEN AT [facility] FOR WEEKS. AND THAT HE HAS BEEN IN ONE HOSPITAL OR ANOTHER SINCE [facility]. HE REPORTS THAT HE THINKS HE WOULD DO BETTER AT HOME AND THAT HE DOES NOT FEEL LIKE HE NEEDS HELP AT HOME. Review of Systems General: Fatigue, Malaise HEENT: No Head Aches, No Visual Changes Pulmonary: No Dyspnea; Cough Cardiovascular: No: Chest Pain, Palpitations Gastrointestinal: Constipation; No: Nausea, Abdominal Pain Genitourinary: No Dysuria Musculoskeletal: No: back pain Neurological: Weakness, Confusion All Other Systems Reviewed All Other Systems Reviewed: Yes Objective Exam Vital Signs Vital Signs - First Documented 05/23/20 05/23/20 16:15 17:47 Temp 36.2 Pulse 73 Resp 16 B/P (MAP) 105/58 (74) Pulse Ox 100 O2 Delivery Room Air Capillary Refill : Less Than 3 Seconds General Appearance: No Apparent Distress, WD/WN Eyes: Bilateral Eye Normal Inspection, Bilateral Eye PERRL, Bilateral Eye EOMI HEENT: PERRL/EOMI Neck: Full Range of Motion, Normal Inspection, Non Tender, Supple Respiratory: Chest Non Tender, Lungs Clear, Normal Breath Sounds, No Accessory Muscle Use, No Respiratory Distress Cardiovascular: Regular Rate, Rhythm, No Edema Gastrointestinal: Normal Bowel Sounds, No Organomegaly, No Pulsatile Mass, Non Tender, Soft Rectal: Deferred Back: Normal Inspection Extremity: Normal Capillary Refill, Non Tender, No Calf Tenderness, No Pedal Edema Neurologic/Psychiatric: Alert, 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 Norm as Tested, Other (ORIENTED TO PERSON, PLACE, NOT TIME, IRRITABLE MOOD/AFFECT) Skin: Normal Color, Warm/Dry Lymphatic: No Adenopathy Results Lab Laboratory Tests 05/25/20 09:01: Glucometer 188H 05/25/20 11:46: Glucometer 159H 05/25/20 16:32: Glucometer 166H 05/25/20 20:33: Glucometer 218H 05/26/20 05:16: White Blood Count 10.7, Red Blood Count 3.40L, Hemoglobin 10.4L, Hematocrit 33L, Mean Corpuscular Volume 96, Mean Corpuscular Hemoglobin 31, Mean Corpuscular Hemoglobin Concent 32, Red Cell Distribution Width 15.0H, Platelet Count 370, Mean Platelet Volume 10.4, Sodium Level 132L, Potassium Level 4.4, Chloride Level 102, Carbon Dioxide Level 19L, Anion Gap 11, Blood Urea Nitrogen 38H, Creatinine 2.15H, Estimat Glomerular Filtration Rate 30, BUN/Creatinine Ratio 18, Glucose Level 184H, Calcium Level 8.6, Corrected Calcium 9.2, Total Bilir ubin 1.0, Aspartate Amino Transf (AST/SGOT) 26, Alanine Aminotransferase (ALT/SGPT) 27, Alkaline Phosphatase 83, Total Protein 6.4, Albumin 3.2 Assessment/Plan Assessment/Plan Assessment and Plan FAMILY MEETING ON 05/25/2020 WITH HIS BROTHER DEQUAN FREDERICK AND SISTER BRETT ROJAS - THEY HAVE MULTIPLE QUESTIONS ABOUT HOW BEST TO HELP NOMAN WHEN HE GOES HOME. THEY ARE WONDERING ABOUT HIS HOME SITUATION, HOME HEALTH, HOW BEST TO GET HIS HOME READY FOR HIM TO RESIDE THERE ALONE. THEY ARE WANTING TO KNOW IF A HOME EVAL CAN BE DONE PRIOR TO NOMAN'S DISCHARGE SO THAT CAN GET THE HOME PREPARED FOR HIM SAFELY POSSIBLE. I HAVE ATTEMPTED TO TALK TO STAFF ON THE REHAB UNIT ABOUT GETTING IN TOUCH WITH DEQUAN OR BRETT - WILL TRY AGAIN LATER TODAY. Problems: (1) Pneumonia Qualifiers: Assessment & Plan: PT ON LEVAQUIN 500MG Q48H, MONITOR CHEST XRAY ON 05/27/2020 (2) Acute on chronic kidney failure Qualifiers: Qualified Codes: N17.9 - Acute kidney failure, unspecified; N18.4 - Chronic kidney disease, stage 4 (severe) Assessment & Plan: CONTINUE TO AVOID NEPHROTOXIC AGENTS WILL SEE DR. PORTILLO OUTPATIENT IN FOLLOW UP. (3) Acute and subacute ischemic heart disease Assessment & Plan: PT HAS EJECTION FRACTION OF 15% ON EVALUATION AT [facility]. PT CONTINUES TO NEED THERAPY FOR STRENGTHENING, HE HAS REQUESTED THAT HE GOES TO SEE DR. ALDANA IN FOLLOW UP. 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 BLOOD GLUCOSE HIGHER THIS MORNING, MONITOR BLOOD GLUCOSE FINGER STICKS OVER THE NEXT FEW DAYS TO SEE IF WE NEED TO INCREASE LEVEMIR BACK UP TO 6 UNITS BID. (5) Cancer of prostate Assessment & Plan: CONTINUE WITH SUPPORTIVE CARE (6) CKD (chronic kidney disease) stage 4, GFR 15-29 ml/min (7) Cerebrovascular disease Assessment & Plan: STATUS POST EMBOLIC STROKE - PT NEEDS THERAPY FOR STRENGTHENING AND WILL NEED OUTPATIENT THERAPY ON DISCHARGE. (8) S/P coronary artery stent placement (9) BPH (benign prostatic hyperplasia) Qualifiers: Qualified Codes: N40.1 - Benign prostatic hyperplasia with lower urinary tract symptoms; R35.0 - Frequency of micturition (10) Cardiomyopathy Qualifiers: Qualified Codes: I25.5 - Ischemic cardiomyopathy RANDI VIGIL MD May 26, 2020 08:33
--- NOTE | 2020-05-26 09:05 | PM&R Progress Note ---
Subjective HPI/CC On Admission Date Seen by Provider: May 26, 2020 Time Seen by Provider: 09:15 Subjective/Events-last exam 05/26/20: Pt confused Doesnt really want me to see him today Its a struggle per Dr. Isaac also Hgb 10.4 Refusing to eat most of the time 05/25/20: Much improved Good family meeting Family at bedside RLL PNA crackles noted Cough improved with meds Decreased confusion Appetite better BM++ 05/24/20: Patient confused Sometimes willing to participate Slow processing per PCP after I conferred with her indepth about his hx Incontinent of urine noted Levaquin maintained for RLL PNA CXR reviewed Review of Systems General: Fatigue Pulmonary: Cough Neurological: Confusion Objective Exam Vital Signs Vital Signs Date Time Temp Pulse Resp B/P (MAP) Pulse Ox O2 Delivery O2 Flow Rate FiO2 05/26/20 17:59 37.2 68 18 108/62 (77) 95 Room Air Capillary Refill : Less Than 3 Seconds General Appearance: No Apparent Distress, WD/WN, Anxious HEENT: PERRL/EOMI Neck: Full Range of Motion, Normal Inspection, Non Tender, Supple Respiratory: Chest Non Tender, No Accessory Muscle Use, No Respiratory Distress, Crackles (CRACKLES IN RIGHT BASE) Cardiovascular: Regular Rate, Rhythm, No Edema Gastrointestinal: Normal Bowel Sounds, No Organomegaly, No Pulsatile Mass, Non Tender, Soft Rectal: Deferred Back: Normal Inspection, No CVA Tenderness, No Vertebral Tenderness Extremity: Normal Capillary Refill, Non Tender, No Calf Tenderness, No Pedal Edema Neurologic/Psychiatric: Alert, Oriented x3, No Motor/Sensory Deficits, Normal Mood/Affect, filbert grower II-XII Norm as Tested Skin: Normal Color, Warm/Dry Lymphatic: No Adenopathy Results/Procedures Lab Laboratory Tests 05/26/20 05:16 Patient resulted labs reviewed. FIM Transfers Therapy Code Descriptions/Definitions Functional [place] Measure: 0=Not Assessed/NA 4=Minimal Assistance 1=Total Assistance 5=Supervision or Setup 2=Maximal Assistance 6=Modified [place] 3=Moderate Assistance 7=Complete IndependenceSCALE: Activities may be completed with or without assistive devices. 7-Lvfxjnpvkg-mpjxqhw completes the activity by him/herself with no assistance from a helper. 5-Set-up or Clean-up Assistance-helper sets up or cleans up; patient completes activity. [place] assists only prior to or following the activity. 4-Supervision or Touching Assistance-helper provides verbal cues and/or touching/steadying and/or contact guard assistance as patient completes activit y. Assistance may be provided throughout the activity or intermittently. 3-Partial/Moderate Assistance-helper does LESS THAN HALF the effort. [place] lifts, holds or supports trunk or limbs, but provides less than half the effort. 2-Substantial/Maximal Assistance-helper does MORE THAN HALF the effort. [place] lifts or holds trunk or limbs and provides more than half the effort. 2-Fooxmsvcl-rbilfq does ALL the effort. Patient does none of the effort to complete the activity. Or, the assistance of 2 or more helpers is required for the patient to complete the activity. If activity was not attempted, code reason: 7-Patient Refused. 9-Not Applicable-not attempted and the patient did not perform the activity before the current illness, exacerbation or injury. 10-Not Attempted due to Environmental Limitations-(lack of equipment, weather restraints, etc.). 88-Not Attempted due to Medical Conditions or Safety Concerns. Roll Left to Right (QC): 3 Sit to Lying (QC): 3 Sit to Stand (QC): 4 Chair/Eke-sz-Zjymf Xfer(QC): 3 Car Transfer (QC): 7 Gait Training Does the Patient Walk?: Yes Distance: 25', 75', 25' Walk 10 feet (QC): 4 Walk 50 ft with 2 Turns(QC): 7 Walk 150 ft (QC): 7 Walking 10ft/uneven surface-QC: 7 Gait Persons Needed: 2 Gait Assistive Device: FWW Wheelchair Training Wheel 50 ft with 2 turns (QC): 7 Wheel 150 ft (QC): 7 Stair Training 1 Step (curb) (QC): 7 4 Steps (QC): 7 12 Steps (QC): 7 Balance Picking up an Object (QC): 7 ADL-Treatment Eating (QC): 5 Oral Hygiene (QC): 5 Bathing Location: L Arm, R Arm, Chest Shower/Bathe Self (QC): 2 Upper Body Dressing (QC): 7 Lower Body Dressing (QC): 7 On/Off Footwear (QC): 7 Toileting Hygiene (QC): 7 Toilet Transfer (QC): 7 Assessment/Plan Assessment and Plan Assess & Plan/Chief Complaint Assessment: Critical illness myopathy s/p cardiogenic shock CKD Stage 4 HTN DM Confusion Cebrovascular disease on MRI Fall risk Plan: IRF protocol Monitor closely Monitor creat Cardiology consultation 05/24/20: Fall risk Incontinence Monitor confusion PCP meeting tomorrow with family 05/25/20: Improved status today Improved strength Less confusion 05/26/20: Monitor BP Fall risk (1) Pneumonia Status: Acute Assessment & Plan: PT ON LEVAQUIN 500MG Q48H, MONITOR CHEST XRAY IN 2 DAYS. Qualifiers: Laterality: right Lung location: lower lobe of lung (2) Acute on chronic kidney failure Assessment & Plan: CONTINUE TO AVOID NEPHROTOXIC AGENTS WILL SEE DR. PORTILLO OUTPATIENT IN FOLLOW UP. Qualifiers: Acute renal failure type: unspecified Chronic kidney disease stage: stage 4 (severe) Qualified Codes: N17.9 - Acute kidney failure, unspecified; N18.4 - Chronic kidney disease, stage 4 (severe) (3) Acute and subacute ischemic heart disease Assessment & Plan: PT HAS EJECTION FRACTION OF 15% ON EVALUATION AT [facility]. (4) DMII (diabetes mellitus, type 2) Assessment & Plan: PT ON LEVEMIR - 6UNITS BID - WILL DECREASE DOWN TO 5 UNITS BID AND ENCOURAGE HIM TO HAVE A SNACK OF AT LEAST 15 GRAMS OF PROTEIN AT . Qualifiers: Diabetes mellitus terminal gauger supervisor insulin use: with half-way use Diabetes mellitus complication status: with kidney complications Diabetes mellitus complication detail: with chronic kidney disease Chronic kidney disease stage: stage 4 (severe) Qualified Codes: E11.22 - Type 2 diabetes mellitus with diabetic chronic kidney disease; N18.4 - Chronic kidney disease, stage 4 (sever e); Z79.4 - terminal gauger supervisor (current) use of insulin (5) Cancer of prostate Status: Chronic Assessment & Plan: CONTINUE WITH SUPPORTIVE CARE (6) CKD (chronic kidney disease) stage 4, GFR 15-29 ml/min (7) Cerebrovascular disease Assessment & Plan: STATUS POST EMBOLIC STROKE - PT NEEDS THERAPY FOR STRENGTHEN ING AND WILL NEED OUTPATIENT THERAPY ON DISCHARGE. (8) S/P coronary artery stent placement (9) BPH (benign prostatic hyperplasia) Qualifiers: Lower urinary tract symptom presence: symptoms present Lower urinary tract symptom detail: urinary frequency Qualified Codes: N40.1 - Benign prostatic hyperplasia with lower urinary tract symptoms; R35.0 - Frequency of micturition (10) Cardiomyopathy Qualifiers: Cardiomyopathy type: ischemic Qualified Codes: I25.5 - Ischemic cardiomyopathy GHADA SANDOVAL DO May 26, 2020 09:05
[2020-05-26] MEDS: polyethylene glycoL POWDER 17 GM (MIRALAX) PACK PO SCH ×2 (09:58→21:20)
[2020-05-26] MEDS: DOCUSATE SODIUM 100 MG (COLACE) CAP PO SCH ×2 (09:58→21:20)
[2020-05-26] MEDS: SENNA W/DOCUSATE (SENOKOT S) TABLET PO SCH ×2 (09:58→21:20)
--- NOTE | 2020-05-26 10:39 | Physical Therapy Daily Note ---
PT Daily Note-Current Subjective Patient in bed pre tx, declines therapy initially and it takes about 15 min of education about the benefits of therapy to convince him to participate. Patient is very uncooperative and doesn't like to take direction. Patient has no complaints of pain. Patient needs dressed and does so with max assist. Appearance Patient in recliner post tx with nurse call, phone, tray, all needs met. Mental Status Patient Orientation: Person, Place, Situation Transfers SCALE: Activities may be completed with or without assistive devices. 2-Rsuwwqplum-lgksbtr completes the activity by him/herself with no assistance from a helper. 5-Set-up or Clean-up Assistance-helper sets up or cleans up; patient completes activity. [place] assists only prior to or following the activity. 4-Supervision or Touching Assistance-helper provides verbal cues and/or touching/steadying and/or contact guard assistance as patient completes activity. Assistance may be provided throughout the activity or intermittently. 3-Partial/Moderate Assistance-helper does LESS THAN HALF the effort. [place] lifts, holds or supports trunk or limbs, but provides less than half the effort. 2-Substantial/Maximal Assistance-helper does MORE THAN HALF the effort. [place] lifts or holds trunk or limbs and provides more than half the effort. 2-Uukgrtnkm-rgrsgw does ALL the effort. Patient does none of the effort to complete the activity. Or, the assistance of 2 or more helpers is required for the patient to complete the activity. If activity was not attempted, code reason: 7-Patient Refused. 9-Not Applicable-not attempted and the patient did not perform the activity before the current illness, exacerbation or injury. 10-Not Attempted due to Environmental Limitations-(lack of equipment, weather restraints, etc.). 88-Not Attempted due to Medical Conditions or Safety Concerns. Roll Left & Right (QC): 3 Lying to Sitting/Side of Bed(Q: 3 Sit to Stand (QC): 3 Chair/Hsf-vq-Fznog Xfer(QC): 3 Patient needs cues for hand placement and safety with every transfer or sit to stand. Gait Training Distance: 70'x4 Walk 10 feet (QC): 3 Walk 50 ft with 2 Turns(QC): 3 Gait Assistive Device: FWW WC follow, very slow ambulation but steady, cues for direction Wheelchair Training Does the Pt Use a Wheelchair?: Yes Wheel 50 ft with 2 turns (QC): 3 Type of Wheelchair: Manual (3) 100'x2 Exercises NuStep Minutes: 15 NuStep Workload: 4 Treatments PT worked on bed mobility and transfers, ambulation, WC mobility, functional strengthening, assisted with positioning and balance during dressing, OT worked on dressing, UE exercise, UE positioning and safety during activity. Assessment Current Status: Poor Progress Patient is resistant to participating with therapy. He has poor motivation and wants to stay in bed. PT Short Term Goals Short Term Goals Time Frame: May 30, 2020 Roll Left & Right: 4 Sit to lyin Lying to sitting on side of be: 4 Sit to stand: 4 Chair/eim-av-pxqgm transfer: 4 Toilet transfer: 4 Walk 10 feet: 4 PT Prison Goals Compressor Assembler Goals PT Prison Goals Time Frame: Jun 13, 2020 Roll Left & Right (QC): 4 (SBA) Sit to Lying (QC): 4 (SBA) Lying-Sitting on Side/Bed(QC): 4 (SBA) Sit to Stand (QC): 4 (SBA) Chair/Ctu-ue-Hqefr Xfer(QC): 4 (SBA) Toilet Transfer (QC): 4 (SBA) Car Transfer (QC): 4 (SBA) Does the Patient Walk: Yes Walk 10 feet (QC): 4 (SBA) Walk 50ft with 2 Turns (QC): 4 (SBA) Walk 150 ft (QC): 4 (SBA) Walking 10ft on Uneven Surface: 4 (SBA) 1 Step (curb) (QC): 4 (CGA) 4 Steps (QC): 4 (CGA) 12 Steps (QC): 4 (CGA) Picking up an Object (QC): 4 (CGA) Wheel 50 feet with 2 turns (QC: 6 Wheel 150 feet: 6 PT Plan Problem List Problem List: Activity Tolerance, Functional Strength, Safety, Balance, Gait, Transfer, Bed Mobility, ROM Treatment/Plan Treatment Plan: Continue Plan of Care Treatment Plan: Bed Mobility, Education, Functional Activity Yuri, Functional Strength, Group Therapy, Gait, Safety, Therapeutic Exercise, Transfers Treatment Duration: Jun 13, 2020 Frequency: At least 5 of 7 days/Wk (IRF) Estimated Hrs Per Day: 1.5 hours per day Patient and/or Family Agrees t: Yes Safety Risks/Education Patient Education: Gait Training, Transfer Techniques, Correct Positioning, W/C Management, Safety Issues Teaching Recipient: Patient Teaching Methods: Demonstration, Discussion Response to Teaching: Reinforcement Needed Time/GCodes Time In: 0900 Time Out: 1015 Total Billed Treatment Time: 75 Total Billed Treatment 1 visit EX 15' FA 60' co-treated for 75' FRANK YATES PT May 26, 2020 10:38
--- NOTE | 2020-05-26 10:40 | Occupational Ther Daily Note ---
OT Current Status-Daily Note Subjective Pt alert, lying in bed. Pt initially refusing therapy stating that he just wants to go home and that he is able to take care of himself. Also states that he is independent and hates that he has to ask to get out of bed, go to the bathroom or anything else. Increased time to discuss and encourage pt to parti cipate in therapy for increasing strength and gaining independence with functional tasks to be able to go home safely. Pt states that he knows he is being rude and also knows that the people here are very nice but he doesn't want to do anything. Pt finally agreed to participate in therapy and at the end of therapy states that he does feel better. Mental Status/Objective Patient Orientation: Person, Confused (confused about length of time in hospital and difficulty with sequencing functional dressing tasks) ADL-Treatment Co-treat with PT ([id number]), skilled instruction and modifications required 2 clinicians due to pt's self limiting behaviors, safety and decreased activity tolerance. PT focusing on standing, ambulation and B LE strengthening while OT focusing on functional transfers, dressing and B UE strengthening. Pt declined shower/sponge bath. After encouragement to get dressed, pt finally complied. Pt incontinent of urine and required encouragement to change briefs, pt wanted to leave briefs on and pull up pants. Pt educated on the benefits of keeping skin clean and dry. Max A to don/doff socks. Max A to thread clothing over feet then pt able to pull up legs though required assist to hike pants over buttocks. Max A to don/doff shirt. Pt unable to sequence dressing upper/lower body. Pt would say need to put arm in the sleeve then would put head in the sleeve. Pt then wondered aloud why he was putting his head in his sleeve when the arm nee ded to go in there. Therapy Code Descriptions/Definitions Functional [place] Measure: 0=Not Assessed/NA 4=Minimal Assistance 1=Total Assistance 5=Supervision or Setup 2=Maximal Assistance 6=Modified [place] 3=Moderate Assistance 7=Complete IndependenceSCALE: Activities may be completed with or without assistive devices. 2-Woqbnrwowm-vtwkddr completes the activity by him/herself with no assistance fr om a helper. 5-Set-up or Clean-up Assistance-helper sets up or cleans up; patient completes activity. [place] assists only prior to or following the activity. 4-Supervision or Touching Assistance-helper provides verbal cues and/or touching/steadying and/or contact guard assistance as patient completes activity. Assistance may be provided throughout the activity or intermittently. 3-Partial/Moderate Assistance-helper does LESS THAN HALF the effort. [place] lifts, holds or supports trunk or limbs, but provides less than half the effort. 2-Substantial/Maximal Assistance-helper does MORE THAN HALF the effort. [place] lifts or holds trunk or limbs and provides more than half the effort. 5-Oifloixyq-rxehyw does ALL the effort. Patient does none of the effort to complete the activity. Or, the assistance of 2 or more helpers is required for the patient to complete the activity. If activity was not attempted, code reason: 7-Patient Refused. 9-Not Applicable-not attempted and the patient did not perform the activity before the current illness, exacerbation or injury. 10-Not Attempted due to Environmental Limitations-(lack of equipment, weather restraints, etc.). 88-Not Attempted due to Medical Conditions or Safety Concerns. Upper Body Dressing (QC): 2 Lower Body Dressing (QC): 2 On/Off Footwear: 2 Toileting Hygiene (QC): 2 Other Treatment Pt then ambulated with PT while OT followed with w/c due to increase risk of falls. Pt ambulated down long hallway (see PT notes for distance) then propelled w/c back to therapy gym with min A. Pt transferred to [facility] to increase upper/lower body strength, 1# wt on each arm. After session, pt sitting in recliner with call light/phone in reach. All needs met in room. Safety measures in place. OT Short Term Goals Short Term Goals Eatin Oral hygiene: 5 Toileting hygiene: 3 Shower/bathe self: 3 Upper body dressin Lower body dressin Putting on/taking off footwear: 3 OT Technology Project Manager Goals Technology Project Manager Goals Time Frame: Jun 06, 2020 Eating (QC): 6 Oral Hygiene (QC): 6 Toileting Hygiene (QC): 6 Shower/Bathe Self (QC): 4 Upper Body Dressing (QC): 6 Lower Body Dressing (QC): 4 On/Off Footwear (QC): 4 Additional Goals: 1-Demonstrate ADL Tasks, 2-Verbalize Understanding, 3- ImproveStrength/Yuri 1=Demonstrate adherence to instructed precautions during ADL tasks. 2=Patient will verbalize/demonstrate understanding of assistive devices/modifications for ADL. 3=Patient will improve strength/tolerance for activity to enable patient to perform ADL's. OT Education/Plan Problem List/Assessment Assessment: Decreased Activ Tolerance, Decreased Safety Aware, Decreased UE Strength, Impaired Cognition, Impaired Funct Balance, Impaired Self-Care Skills Discharge Recommendations Plan/Recommendations: Continue POC Treatment Plan/Plan of Care Patient would benefit from OT for education, treatment and training to promote independence in ADL's, mobility, safety and/or upper extremity function for AD L's. Plan of Care: ADL Retraining, Caregiver Training, Concurrent Therapy, Functional Mobility, Group Exercise/Act as Ind, UE Funct Exercise/Act, UE Neuromus Re-Ed/Coord, W/C Management Training Treatment Duration: Jun 06, 2020 Frequency: At least 5 of 7 days/Wk (IRF) Estimated Hrs Per Day: 1.5 hours per day Agreement: Yes Rehab Potential: Poor Time/GCodes Start Time: 09:00 Stop Time: 10:15 Total Time Billed (hr/min): 75 Billed Treatment Time 1 visit-ADL 3 (40 min) FA 1 (20 min) EX 1 (15 min) co-treat with PT [id number] MAKENZIE COMBS May 26, 2020 10:40
--- NOTE | 2020-05-26 13:52 | ST Cognitive Linguistic Eval ---
Speech Evaluation-General Medical Diagnosis NSTEMI Onset Date: May 07, 2020 Therapy Diagnosis Therapy Diagnosis: Cognitive-communication Referral Referring Physician: Dr. Jama Medical History Reviewed History: Yes Social History Current Living Status: Alone Speech PLF-Current Status Prior Level of Function Patient lives home alone where he was independent with much of his daily needs. He does have family support from his sister and brother in law. Subjective Patient was cooperative with the evaluation, although very evident he is quite confused. Language Eval: Auditory Comprehends Simple Yes/No Ques: Functional Indent/Objects Multiple Joshua: Functional Ident/Pics in Multiple Joshua: Mild Follows 1-Step Commands: Mild Follows Complex Directions: Moderate Follows General Conversations: Mild Language Eval: Verbal Language Completes Spontaneous Greeting: Functional Produces Auto, Serial Info: Functional Imitates Simple Words/Phrases: Functional Word Finding: Moderate Requests Basic Needs: Mild States Basic Personal Info: Mild Expresses Complex Ideas: Moderate Objective Cognitive Domain Memory: Moderate Problem Solving: Moderate Executive Functions: Mild Visuospatial Skills: Mild Composite Severity Rating: Moderate Clock Drawing Severity Rating: Moderate Objective Formal/Standardized Tests [facility] Mental Status ([facility]) Results 14/30, Moderate Dementia range of function Oral Motor/Speech Production Within Normal Limits Impression Patient is a 80 y/o man who was admitted to the [facility] s/p NSTEMI procedure. The patient is very confused and could not follow simple questions or conversation related to himself or health. The patient was given the SLUMS and informal speech tasks with a score of 14/30 obtained. This score is within the Moderate Dementia range of function. Patient's level of confusion and scores indicate a great need for cognitive therapy. Speech Patient Assess Expression of Ideas/Wants: Frequently (2) Understanding Verbal Content: Sometimes Understands(2) Brief Interview-Mental Status: Yes Repetition of Three Words: Two (2) Temporal Orientation: Year: Correct (3) Temporal Orientation: Month: Missed by 6 days-1 month (1) Temporal Orientation: Day: Incorrect or No Answer(0) Recall : Wear to say "Sock": No, could not recall (0) Recall : Color: No, could not recall (0) Recall : Bed: No, could not recall (0) Memory/Recall Ability: Current season, That he or she is in a hsp/hsp unit Speech Short Term Goals Short Term Goals Short Term Goals 1) Patient will complete memory tasks related to his daily needs at 80% or greater with minimal cues. 2) Patient will complete problem solving tasks related to his daily needs at 80% or greater with minimal cues. 3) Patient will complete safety awareness tasks related to his daily needs at 80% or greater with minimal cues. Speech Hot Room Attendant Goals Hot Room Attendant Goals Patient will improve cognitive-communication skills in order to improve safety and require minimal assist. Speech-Plan Patient/Family Goals Patient/Family Goals: Patient plans on returning to his home, however due to his medical and cognitive status this will be determined prior to discharge. Treatment Plan Speech Therapy Treatment Plan: Continue Plan of Care Treatment Duration: Jun 06, 2020 Frequency: 4 times per week (Patient will receive skilled ST 4-5x per week) Estimated Hrs Per Day: .5 hour per day Rehab Potential: Poor Barriers to Learning: Patient's level of confusion, decreased cognitive function Pt/Family Agrees to Plan: Yes Safety Risks/Education Teaching Recipient: Patient Teaching Methods: Discussion Response to Teaching: Verbalize Understanding Education Topics Provided: Safety within his room, orientation to his call light, communication of wants/needs Time Speech Therapy Time In: 11:00 Speech Therapy Time Out: 11:30 Total Billed Time: 30 Billed Treatment Time 1, [address] May 26, 2020 13:52
--- NOTE | 2020-05-26 14:09 | Occupational Ther Daily Note ---
OT Current Status-Daily Note Subjective Pt alert, sitting in recliner. Pt initially refused to participate in therapy when he thought he needed to get up from chair. Pt participated with B UE. No c/o pain at beginning of session then by the end was c/o tailbone hurting. Mental Status/Objective Patient Orientation: Person ADL-Treatment Therapy Code Descriptions/Definitions Functional [place] Measure: 0=Not Assessed/NA 4=Minimal Assistance 1=Total Assistance 5=Supervision or Setup 2=Maximal Assistance 6=Modified [place] 3=Moderate Assistance 7=Complete IndependenceSCALE: Activities may be completed with or without assistive devices. 7-Guugepqrtl-xfvzugb completes the activity by him/herself with no assistance from a helper. 5-Set-up or Clean-up Assistance-helper sets up or cleans up; patient completes activity. [place] assists only prior to or following the activity. 4-Supervision or Touching Assistance-helper provides verbal cues and/or touch ing/steadying and/or contact guard assistance as patient completes activity. Assistance may be provided throughout the activity or intermittently. 3-Partial/Moderate Assistance-helper does LESS THAN HALF the effort. [place] lifts, holds or supports trunk or limbs, but provides less than half the effort. 2-Substantial/Maximal Assistance-helper does MORE THAN HALF the effort. [place] lifts or holds trunk or limbs and provides more than half the effort. 4-Cyxjkdpce-ixnbve does ALL the effort. Patient does none of the effort to complete the activity. Or, the assistance of 2 or more helpers is required for the patient to complete the activity. If activity was not attempted, code reason: 7-Patient Refused. 9-Not Applicable-not attempted and the patient did not perform the activity before the current illness, exacerbation or injury. 10-Not Attempted due to Environmental Limitations-(lack of equipment, weather restraints, etc.). 88-Not Attempted due to Medical Conditions or Safety Concerns. Pt takes increased time to initiate therapy due to self limiting behavior and refusal to participate in therapy until after a lengthy discussion of the benefits of therapy. Other Treatment GRAF asked if pt needed to use restroom, pt declined. Pt c/o of stiff back by grimacing with movement, declined to move to relieve back discomfort. Pt did agree to complete B UE light resistance theraband exercises. Skilled instruction required for correct technique on exercises. Pt completed 3 exerci se 1 set 10 reps with verbal/physical cues for correct technique. Pt unable to keep count of reps. Pt then stated that tailbone was hurting. GRAF repositioned recliner to sit up right so that pt would stand and alleviate pain. Pt stood and transferred to bed with CGA. EOB to supine independently. After session, pt in bed with call light/phone in reach. Safety measures in place. All needs met in room. OT Short Term Goals Short Term Goals Eatin Oral hygiene: 5 Toileting hygiene: 3 Shower/bathe self: 3 Upper body dressin Lower body dressin Putting on/taking off footwear: 3 OT Distillery Worker General Goals Retirement Goals Time Frame: Jun 06, 2020 Eating (QC): 6 Oral Hygiene (QC): 6 Toileting Hygiene (QC): 6 Shower/Bathe Self (QC): 4 Upper Body Dressing (QC): 6 Lower Body Dressing (QC): 4 On/Off Footwear (QC): 4 Additional Goals: 1-Demonstrate ADL Tasks, 2-Verbalize Understanding, 3- ImproveStrength/Yuri 1=Demonstrate adherence to instructed precautions during ADL tasks. 2=Patient will verbalize/demonstrate understanding of assistive devices/modifications for ADL. 3=Patient will improve strength/tolerance for activity to enable patient to perform ADL's. OT Education/Plan Problem List/Assessment Assessment: Decreased Activ Tolerance, Decreased UE Strength, Impaired Cognition, Impaired Self-Care Skills Discharge Recommendations Plan/Recommendations: Continue POC Treatment Plan/Plan of Care Patient would benefit from OT for education, treatment and training to promote independence in ADL's, mobility, safety and/or upper extremity function for ADL's. Plan of Care: ADL Retraining, Caregiver Training, Concurrent Therapy, Functiona l Mobility, Group Exercise/Act as Ind, UE Funct Exercise/Act, UE Neuromus Re- Ed/Coord, W/C Management Training Treatment Duration: Jun 06, 2020 Frequency: At least 5 of 7 days/Wk (IRF) Estimated Hrs Per Day: 1.5 hours per day Agreement: Yes Rehab Potential: Poor Time/GCodes Start Time: 13:35 Stop Time: 14:00 Total Time Billed (hr/min): 25 Billed Treatment Time 1 visit-FA 1 (15 min) EX 1 (10 min) MAKENZIE COMBS May 26, 2020 14:09
[2020-05-26 17:59] VITALS: BP 108/62
[2020-05-26] MEDS: MELATONIN 3 MG TABLET PO SCH (21:17)
[2020-05-27] MEDS: guaiFENesin/CODEINE (ROBITUSSIN AC) 10ML UDC PO SCH ×6 (01:00→21:08)
[2020-05-27] MEDS: inSUlin ASPART (NovoLOG) 1 UNIT/0.01 ML (CHARGE PER UNIT) SC SCH ×4 (06:08→21:12)
[2020-05-27] MEDS: CATHETER FLUSH 10 ML SYR IV SCH ×3 (06:09→21:17)
[2020-05-27 06:15] VITALS: BP 130/66
[2020-05-27] MEDS: DOCUSATE SODIUM 100 MG (COLACE) CAP PO SCH ×2 (09:13→21:04)
[2020-05-27] MEDS: TICAGRELOR 90 MG TABLET (BRILINTA) PO SCH ×2 (09:13→21:03)
[2020-05-27] MEDS: BENZONATATE 100 MG (TESSALON) CAPSULE PO SCH ×3 (09:13→21:04)
[2020-05-27] MEDS: ASPIRIN E.C. 81 MG (ECOTRIN) TAB PO SCH (09:13)
[2020-05-27] MEDS: SENNA W/DOCUSATE (SENOKOT S) TABLET PO SCH ×2 (09:14→21:15)
[2020-05-27] MEDS: CARVEDILOL 3.125 MG (COREG) TABLET PO SCH ×2 (09:14→17:19)
[2020-05-27] MEDS: polyethylene glycoL POWDER 17 GM (MIRALAX) PACK PO SCH ×2 (09:14→21:15)
[2020-05-27 09:19] VITALS: BP 159/75
--- NOTE | 2020-05-27 09:21 | Speech Therapy Daily Note ---
Speech Daily Progress Note Subjective Date Seen by Provider: May 27, 2020 Time Seen by Provider: 00:30 Patient was laying in bed with his breakfast tray untouched on his table when I entered his room. He said he was starving, however he refused to allow me to assist him with set up. Objective Patient completed general questions related to his daily needs. He continues to be angry that he is having to stay here. He just wants to return to his home. Assessment Assessment Current Status: Poor Progress Treatment Plan Continue Plan of Care Speech Short Term Goals Short Term Goals Short Term Goals 1) Patient will complete memory tasks related to his daily needs at 80% or greater with minimal cues. 2) Patient will complete problem solving tasks related to his daily needs at 80% or greater with minimal cues. 3) Patient will complete safety awareness tasks related to his daily needs at 80% or greater with minimal cues. Speech [facility] Goals Tool Grinder Goals Patient will improve cognitive-communication skills in order to improve safety and require minimal assist. Speech-Plan Patient/Family Goals Patient/Family Goals: Patient insists he is going to return home, however at this time this is to be determined if he is safe to return. Treatment Plan Speech Therapy Treatment Plan: Continue Plan of Care Treatment Duration: Jun 06, 2020 Frequency: 4 times per week (Patient will receive skilled ST 4-5x per week) Estimated Hrs Per Day: .5 hour per day Rehab Potential: Poor Barriers to Learning: Patient's level of confusion, resistance to therapies Pt/Family Agrees to Plan: Yes Safety Risks/Education Teaching Recipient: Patient Teaching Methods: Demonstration, Discussion Response to Teaching: Verbalize Understanding, Return Demonstration Education Topics Provided: Continued safety and nutritional needs Time Speech Therapy Time In: 08:30 Speech Therapy Time Out: 09:00 Total Billed Time: 30 Billed Treatment Time 1[address] May 27, 2020 09:21
--- NOTE | 2020-05-27 10:08 | Physical Therapy Daily Note ---
PT Daily Note-Current Subjective Patient coming back from radiology in , he is directed into the restroom for a shower, has no complaints of pain. Will be cotreating with OT due to poor patient mobility, strength, endurance, coordinate UE and LE during activity, safety and reduce risk of falls. Appearance Patient in bed post tx with nurse call, phone, tray, bed alarm on. Mental Status Patient Orientation: Person, Confused, Place, Situation Transfers SCALE: Activities may be completed with or without assistive devices. 1-Lcygvljhdt-bawymoa completes the activity by him/herself with no assistance from a helper. 5-Set-up or Clean-up Assistance-helper sets up or cleans up; patient completes activity. [place] assists only prior to or following the activity. 4-Supervision or Touching Assistance-helper provides verbal cues and/or touching/steadying and/or contact guard assistance as patient completes activity. Assistance may be provided throughout the activity or intermittently. 3-Partial/Moderate Assistance-helper does LESS THAN HALF the effort. [place] lifts, holds or supports trunk or limbs, but provides less than half the effort. 2-Substantial/Maximal Assistance-helper does MORE THAN HALF the effort. [place] lifts or holds trunk or limbs and provides more than half the effort. 7-Qhrnikgcs-mwwpoc does ALL the effort. Patient does none of the effort to complete the activity. Or, the assistance of 2 or more helpers is required for the patient to complete the activity. If activity was not attempted, code reason: 7-Patient Refused. 9-Not Applicable-not attempted and the patient did not perform the activity before the current illness, exacerbation or injury. 10-Not Attempted due to Environmental Limitations-(lack of equipment, weather restraints, etc.). 88-Not Attempted due to Medical Conditions or Safety Concerns. Roll Left & Right (QC): 6 Sit to Lying (QC): 4 Sit to Stand (QC): 4 Chair/Xes-fx-Yyzyq Xfer(QC): 4 Patient is transferred from radiology to shower bench and shower is performed with PT assisting with transfers, standing, and positioning during shower and undressing and dressing. Gait Training Distance: 300', 120' Walk 10 feet (QC): 4 Walk 50 ft with 2 Turns(QC): 4 Walk 150 ft (QC): 4 Gait Assistive Device: FWW WC follow, one standing rest break, very slow ambulation, needs cues for direction Exercises NuStep Minutes: 15 NuStep Workload: 4 Treatments PT performed bed mobility and transfers, ambulation, functional strengthening, standing and positioning during shower and dressing, OT performed shower and dressing, UE strengthening, assisted with UE positioning and safety during activity Assessment Current Status: Fair Progress improved endurance but patient still needs constant encouragement to participate PT Short Term Goals Short Term Goals Time Frame: May 30, 2020 Roll Left & Right: 4 Sit to lyin Lying to sitting on side of be: 4 Sit to stand: 4 Chair/rfj-na-svjmt transfer: 4 Toilet transfer: 4 Walk 10 feet: 4 PT Shipping Manager Goals Correction Goals PT Shipping Manager Goals Time Frame: Jun 13, 2020 Roll Left & Right (QC): 4 (SBA) Sit to Lying (QC): 4 (SBA) Lying-Sitting on Side/Bed(QC): 4 (SBA) Sit to Stand (QC): 4 (SBA) Chair/Xfj-cp-Kmgfe Xfer(QC): 4 (SBA) Toilet Transfer (QC): 4 (SBA) Car Transfer (QC): 4 (SBA) Does the Patient Walk: Yes Walk 10 feet (QC): 4 (SBA) Walk 50ft with 2 Turns (QC): 4 (SBA) Walk 150 ft (QC): 4 (SBA) Walking 10ft on Uneven Surface: 4 (SBA) 1 Step (curb) (QC): 4 (CGA) 4 Steps (QC): 4 (CGA) 12 Steps (QC): 4 (CGA) Picking up an Object (QC): 4 (CGA) Wheel 50 feet with 2 turns (QC: 6 Wheel 150 feet: 6 PT Plan Problem List Problem List: Activity Tolerance, Functional Strength, Safety, Balance, Gait, Transfer, Bed Mobility, ROM Treatment/Plan Treatment Plan: Continue Plan of Care Treatment Plan: Bed Mobility, Education, Functional Activity Yuri, Functional Strength, Group Therapy, Gait, Safety, Therapeutic Exercise, Transfers Treatment Duration: Jun 13, 2020 Frequency: At least 5 of 7 days/Wk (IRF) Estimated Hrs Per Day: 1.5 hours per day Patient and/or Family Agrees t: Yes Safety Risks/Education Patient Education: Gait Training, Transfer Techniques, Correct Positioning, Safety Issues Teaching Recipient: Patient Teaching Methods: Demonstration, Discussion Response to Teaching: Reinforcement Needed Time/GCodes Time In: 0900 Time Out: 1015 Total Billed Treatment Time: 75 Total Billed Treatment 1 visit EX 15' FA 60' co-treated with OT for 75' FRANK YATES PT May 27, 2020 10:08
--- NOTE | 2020-05-27 10:18 | Occupational Ther Daily Note ---
OT Current Status-Daily Note Subjective Pt just coming back from x-ray. Pt did not remember discussing taking shower from yesterday. Pt stated that he didn't want a shower. Pt has not showered for a number of days and when brought to his attention he stated that if he believed in what he was doing that it would be different. When reminded that s taff was helping him become stronger and he stated don't twist my words and that he has not gotten stronger since he got here. GRAF reminded pt that he has only been here for a few days and pt stated that he has been here since the first of the month and would not believe GRAF. Pt then stated that he was told that he needed to cooperate and when asked who had told him that pt stated that it was his brother and sister. Though when asked about brother and sister later in session, pt could not remember last time he talked to them. Mental Status/Objective Patient Orientation: Person, Confused Attachments: IV ADL-Treatment Co-treat with PT ([id number]), skilled instruction and care required 2 clinicians due to self-limiting behavior, increased fall risk and decreased activity tolerance. PT focusing on ambulation, transfers and B LE strengthening while OT focusing on functional transfers, ADLs and B UE strengthening. Pt took shower today. Assist x2 to transfer into shower for safety, due to pt is having difficulty sequencing steps of daily functional tasks. Pt stated that he did not want to be cold and soaked in shower. Using hand held shower, pt able to manipulate the amount of water wanted and assist given to manipulate water temperature. Pt bathed all areas sitting on bench, leaning side to side to cleanse bottom (pt stated that he got it clean enough). Pt requires CGA to hike pants down over hips and assist to take off briefs and socks over feet. Pt attempted to don briefs using figure 4 technique though could not sequence to don over feet. Assist given to don all lower body clothing. Pt complete oral care in shower. Therapy Code Descriptions/Definitions Functional [place] Measure: 0=Not Assessed/NA 4=Minimal Assistance 1=Total Assistance 5=Supervision or Setup 2=Maximal Assistance 6=Modified [place] 3=Moderate Assistance 7=Complete IndependenceSCALE: Activities may be completed with or without assistive devices. 1-Gsmpjravap-tzktqfh completes the activity by him/herself with no assistance from a helper. 5-Set-up or Clean-up Assistance-helper sets up or cleans up; patient completes activity. [place] assists only prior to or following the activity. 4-Supervision or Touching Assistance-helper provides verbal cues and/or touching/steadying and/or contact guard assistance as patient completes activity. Assistance may be provided throughout the activity or intermittently. 3-Partial/Moderate Assistance-helper does LESS THAN HALF the effort. [place] lifts, holds or supports trunk or limbs, but provides less than half the effort. 2-Substantial/Maximal Assistance-helper does MORE THAN HALF the effort. [place] lifts or holds trunk or limbs and provides more than half the effort. 9-Myizwujtw-gszxzt does ALL the effort. Patient does none of the effort to complete the activity. Or, the assistance of 2 or more helpers is required for the patient to complete the activity. If activity was not attempted, code reason: 7-Patient Refused. 9-Not Applicable-not attempted and the patient did not perform the activity before the current illness, exacerbation or injury. 10-Not Attempted due to Environmental Limitations-(lack of equipment, weather restraints, etc.). 88-Not Attempted due to Medical Conditions or Safety Concerns. Eating (QC): 7 Oral Hygiene (QC): 6 Shower/Bathe Self (QC): 4 Lower Body Dressing (QC): 2 On/Off Footwear: 2 Other Treatment See PT notes for distance of ambulation. Pt then completed NuStep with 1# wts on wrists to strengthen B UE for daily functional tasks. Pt then ambulated back to room using FWW. SBA to go from EOB to supine and was able to complete own bed mobility. After session, pt lying in bed with call light/phone in reach. Safety measures in place. All needs met in room. OT Short Term Goals Short Term Goals Eatin Oral hygiene: 5 Toileting hygiene: 3 Shower/bathe self: 3 Upper body dressin Lower body dressin Putting on/taking off footwear: 3 OT Cook Vacuum Kettle Goals [facility]dc Goals Time Frame: Jun 06, 2020 Eating (QC): 6 Oral Hygiene (QC): 6 Toileting Hygiene (QC): 6 Shower/Bathe Self (QC): 4 Upper Body Dressing (QC): 6 Lower Body Dressing (QC): 4 On/Off Footwear (QC): 4 Additional Goals: 1-Demonstrate ADL Tasks, 2-Verbalize Understanding, 3-ImproveStrength/Yuri 1=Demonstrate adherence to instructed precautions during ADL tasks. 2=Patient will verbalize/demonstrate understanding of assistive devices/modifications for ADL. 3=Patient will improve strength/tolerance for activity to enable patient to perf orm ADL's. OT Education/Plan Problem List/Assessment Assessment: Decreased Activ Tolerance, Decreased Safety Aware, Decreased UE Strength, Impaired Cognition, Impaired Funct Balance, Impaired Self-Care Skills Discharge Recommendations Plan/Recommendations: Continue POC Treatment Plan/Plan of Care Patient would benefit from OT for education, treatment and training to promote independence in ADL's, mobility, safety and/or upper extremity function for ADL's. Plan of Care: ADL Retraining, Caregiver Training, Concurrent Therapy, Functional Mobility, Group Exercise/Act as Ind, UE Funct Exercise/Act, UE Neuromus Re-Ed/Coord, W/C Management Training Treatment Duration: Jun 06, 2020 Frequency: At least 5 of 7 days/Wk (IRF) Estimated Hrs Per Day: 1.5 hours per day Agreement: Yes Rehab Potential: Poor Time/GCodes Start Time: 09:00 Stop Time: 10:16 Total Time Billed (hr/min): 76 Billed Treatment Time 1 visit-ADL 3 (45 min) FA 2 (31 min) co-treat with PT 45 min and individual 1 min MAKENZIE COMBS May 27, 2020 10:17
--- NOTE | 2020-05-27 10:23 | Diagnostic Imaging Report ---
INDICATION: Pneumonia. COMPARISON: 05/24/2020. FINDINGS: There continues to be mild alveolar infiltrate in the right lower lung. This has improved slightly in density since the previous exam. The right upper lung is clear. The left lung is clear. The heart is not enlarged. No pneumothorax or pleural effusion. IMPRESSION: Continued improvement with mild residual density remaining in the right lung base. Dictated by: Dictated on workstation # [id number]
--- NOTE | 2020-05-27 11:15 | PM&R Progress Note ---
Subjective HPI/CC On Admission Date Seen by Provider: May 27, 2020 Time Seen by Provider: 10:30 Subjective/Events-last exam 05/27/20: Niece is at the bedside Overall doing very well Confusion occurs at times Plenty of family members taking care of him at home so that should be a good and safe discharge 05/26/20: Pt confused Doesnt really want me to see him today Its a struggle per Dr. Isaac also Hgb 10.4 Refusing to eat most of the time 05/25/20: Much improved Good family meeting Family at bedside RLL PNA crackles noted Cough improved with meds Decreased confusion Appetite better BM++ 05/24/20: Patient confused Sometimes willing to participate Slow processing per PCP after I conferred with her indepth about his hx Incontinent of urine noted Levaquin maintained for RLL PNA CXR reviewed Review of Systems General: Fatigue, Malaise Neurological: Weakness, Confusion Objective Exam Vital Signs Vital Signs Date Time Temp Pulse Resp B/P (MAP) Pulse Ox O2 Delivery O2 Flow Rate FiO2 05/27/20 21:10 Room Air 05/27/20 18:46 36.5 87 18 114/65 (81) 98 Capillary Refill : Less Than 3 Seconds General Appearance: No Apparent Distress, WD/WN, Anxious HEENT: PERRL/EOMI Neck: Full Range of Motion, Normal Inspection, Non Tender, Supple Respiratory: Chest Non Tender, No Accessory Muscle Use, No Respiratory Distress, Crackles (CRACKLES IN RIGHT BASE) Cardiovascular: Regular Rate, Rhythm, No Edema Gastrointestinal: Normal Bowel Sounds, No Organomegaly, No Pulsatile Mass, Non Tender, Soft Rectal: Deferred Back: Normal Inspection, No CVA Tenderness, No Vertebral Tenderness Extremity: Normal Capillary Refill, Non Tender, No Calf Tenderness, No Pedal Edema Neurologic/Psychiatric: Alert, Oriented x3, No Motor/Sensory Deficits, Normal Mood/Affect, voice teacher II-XII Norm as Tested Skin: Normal Color, Warm/Dry Lymphatic: No Adenopathy Results/Procedures Lab Patient resulted labs reviewed. FIM Transfers Therapy Code Descriptions/Definitions Functional [place] Measure: 0=Not Assessed/NA 4=Minimal Assistance 1=Total Assistance 5=Supervision or Setup 2=Maximal Assistance 6=Modified [place] 3=Moderate Assistance 7=Complete IndependenceSCALE: Activities may be completed with or without assistive devices. 8-Ciqcflydrd-rctiqyg completes the activity by him/herself with no assistance from a helper. 5-Set-up or Clean-up Assistance-helper sets up or cleans up; patient completes activity. [place] assists only prior to or following the activity. 4-Supervision or Touching Assistance-helper provides verbal cues and/or touching/steadying and/or contact guard assistance as patient completes activity. Assistance may be provided throughout the activity or intermittently. 3-Partial/Moderate Assistance-helper does LESS THAN HALF the effort. [place] lifts, holds or supports trunk or limbs, but provides less than half the effort. 2-Substantial/Maximal Assistance-helper does MORE THAN HALF the effort. [place] lifts or holds trunk or limbs and provides more than half the effort. 0-Qlcabtftw-atqtde does ALL the effort. Patient does none of the effort to complete the activity. Or, the assistance of 2 or more helpers is required for the patient to complete the activity. If activity was not attempted, code reason: 7-Patient Refused. 9-Not Applicable-not attempted and the patient did not perform the activity before the current illness, exacerbation or injury. 10-Not Attempted due to Environmental Limitations-(lack of equipment, weather restraints, etc.). 88-Not Attempted due to Medical Conditions or Safety Concerns. Roll Left to Right (QC): 6 Sit to Lying (QC): 4 Sit to Stand (QC): 3 Chair/Lfz-rx-Txyzp Xfer(QC): 3 Car Transfer (QC): 7 Gait Training Does the Patient Walk?: Yes Distance: 70'x4 Walk 10 feet (QC): 3 Walk 50 ft with 2 Turns(QC): 3 Walk 150 ft (QC): 7 Walking 10ft/uneven surface-QC: 7 Gait Persons Needed: 2 Gait Assistive Device: FWW Wheelchair Training Does the Pt Use a Wheelchair?: Yes Wheel 50 ft with 2 turns (QC): 3 Wheel 150 ft (QC): 7 Type of Wheelchair: Manual (3) Stair Training 1 Step (curb) (QC): 7 4 Steps (QC): 7 12 Steps (QC): 7 Balance Picking up an Object (QC): 7 ADL-Treatment Eating (QC): 7 Oral Hygiene (QC): 6 Bathing Location: L Arm, R Arm, Chest Shower/Bathe Self (QC): 4 Upper Body Dressing (QC): 2 Lower Body Dressing (QC): 2 On/Off Footwear (QC): 2 Toileting Hygiene (QC): 2 Toilet Transfer (QC): 7 Assessment/Plan Assessment and Plan Assess & Plan/Chief Complaint Assessment: Critical illness myopathy s/p cardiogenic shock CKD Stage 4 HTN DM Confusion Cebrovascular disease on MRI Fall risk Plan: IRF protocol Monitor closely Monitor creat Cardiology consultation 05/24/20: Fall risk Incontinence Monitor confusion PCP meeting tomorrow with family 05/25/20: Improved status today Improved strength Less confusion 05/26/20: Monitor BP Fall risk 05/27/20: Confusion noted Appears there are plenty of family members able to check in on him (1) Pneumonia Status: Acute Assessment & Plan: PT ON LEVAQUIN 500MG Q48H, MONITOR CHEST XRAY ON 05/27/2020 Qualifiers: Laterality: right Lung location: lower lobe of lung (2) Acute on chronic kidney failure Assessment & Plan: CONTINUE TO AVOID NEPHROTOXIC AGENTS WILL SEE DR. PORTILLO OUTPATIENT IN FOLLOW UP. Qualifiers: Acute renal failure type: unspecified Chronic kidney disease stage: stage 4 (severe) Qualified Codes: N17.9 - Acute kidney failure, unspecified; N18.4 - Chronic kidney disease, stage 4 (severe) (3) Acute and subacute ischemic heart disease Assessment & Plan: PT HAS EJECTION FRACTION OF 15% ON EVALUATION AT [facility]. PT CONTINUES TO NEED THERAPY FOR STRENGTHENING, HE HAS REQUESTED THAT HE GOES TO SEE DR. ALDANA IN FOLLOW UP. (4) DMII (diabetes mellitus, type 2) Assessment & Plan: PT ON LEVEMIR 5 UNITS BID AND ENCOURAGE HIM TO HAVE A SNACK OF AT LEAST 15 GRAMS OF PROTEIN AT HS. BLOOD GLUCOSE HIGHER THIS MORNING, MONITOR BLOOD GLUCOSE FINGER STICKS OVER THE NEXT FEW DAYS TO SEE IF WE NEED TO INCREASE LEVEMIR BACK UP TO 6 UNITS BID. Qualifiers: Diabetes mellitus fdc insulin use: with local intermodal truck driver use Diabetes mellitus complication status: with kidney complications Diabetes mellitus complication detail: with chronic kidney disease Chronic kidney disease stage: stage 4 (severe) Qualified Codes: E11.22 - Type 2 diabetes mellitus with diabetic chronic kidney disease; N18.4 - Chronic kidney disease, stage 4 (severe); Z79.4 - long term care social worker (current) use of insulin (5) Cancer of prostate Status: Chronic Assessment & Plan: CONTINUE WITH SUPPORTIVE CARE (6) CKD (chronic kidney disease) stage 4, GFR 15-29 ml/min (7) Cerebrovascular disease Assessment & Plan: STATUS POST EMBOLIC STROKE - PT NEEDS THERAPY FOR STR ENGTHENING AND WILL NEED OUTPATIENT THERAPY ON DISCHARGE. (8) S/P coronary artery stent placement (9) BPH (benign prostatic hyperplasia) Qualifiers: Lower urinary tract symptom presence: symptoms present Lower urinary tract symptom detail: urinary frequency Qualified Codes: N40.1 - Benign prostatic hyperplasia with lower urinary tract symptoms; R35.0 - Frequency of micturition (10) Cardiomyopathy Qualifiers: Cardiomyopathy type: ischemic Qualified Codes: I25.5 - Ischemic cardiomyopathy GHADA SANDOVAL DO May 27, 2020 11:15
[2020-05-27] MEDS: LEVOFLOXACIN 500 MG TAB (LEVAQUIN) PO SCH (17:19)
[2020-05-27 18:46] VITALS: BP 114/65
[2020-05-27] MEDS: MELATONIN 3 MG TABLET PO SCH (21:04)
[2020-05-28] MEDS: guaiFENesin/CODEINE (ROBITUSSIN AC) 10ML UDC PO SCH ×6 (01:00→21:25)
[2020-05-28 05:26] VITALS: BP 118/67
[2020-05-28] MEDS: inSUlin ASPART (NovoLOG) 1 UNIT/0.01 ML (CHARGE PER UNIT) SC SCH ×4 (06:10→21:10)
[2020-05-28] MEDS: CATHETER FLUSH 10 ML SYR IV SCH ×3 (06:46→22:50)
[2020-05-28] MEDS: ASPIRIN E.C. 81 MG (ECOTRIN) TAB PO SCH (07:30)
[2020-05-28] MEDS: CARVEDILOL 3.125 MG (COREG) TABLET PO SCH ×2 (07:30→16:39)
[2020-05-28] MEDS: TICAGRELOR 90 MG TABLET (BRILINTA) PO SCH ×2 (07:30→21:25)
[2020-05-28] MEDS: VITAMIN D2 1.25 MG (50,000 UNITS) CAP PO SCH (07:30)
[2020-05-28] MEDS: SENNA W/DOCUSATE (SENOKOT S) TABLET PO SCH ×2 (07:30→21:25)
[2020-05-28] MEDS: BENZONATATE 100 MG (TESSALON) CAPSULE PO SCH ×3 (07:30→21:25)
[2020-05-28] MEDS: polyethylene glycoL POWDER 17 GM (MIRALAX) PACK PO SCH ×2 (07:31→21:28)
[2020-05-28] MEDS: DOCUSATE SODIUM 100 MG (COLACE) CAP PO SCH ×2 (07:36→21:25)
--- NOTE | 2020-05-28 09:18 | Speech Therapy Daily Note ---
Speech Daily Progress Note Subjective Date Seen by Provider: May 28, 2020 Time Seen by Provider: 00:30 Patient was resting in his bed following breakfast when I entered his room. Objective Patient completed a series of conversation tasks related to our rehab mtg today and what his needs would be upon his return home. Assessment Assessment Current Status: Fair Progress Treatment Plan Continue Plan of Care Speech Short Term Goals Short Term Goals Short Term Goals 1) Patient will complete memory tasks related to his daily needs at 80% or greater with minimal cues. 2) Patient will complete problem solving tasks related to his daily needs at 80% or greater with minimal cues. 3) Patient will complete safety awareness tasks related to his daily needs at 80% or greater with minimal cues. Speech Care Home Goals Staff Editor Goals Patient will improve cognitive-communication skills in order to improve safety and require minimal assist. Speech-Plan Patient/Family Goals Patient/Family Goals: Patient plans on returning to his home with family support. At this time my professional opinion is that he would not be safe to return home. Treatment Plan Speech Therapy Treatment Plan: Continue Plan of Care Treatment Duration: Jun 06, 2020 Frequency: 4 times per week (Patient will receive skilled ST 4-5x per week) Estimated Hrs Per Day: .5 hour per day Rehab Potential: Poor Barriers to Learning: Patient's recent health decline, age, level of confusion Pt/Family Agrees to Plan: Yes Safety Risks/Education Teaching Recipient: Patient Teaching Methods: Demonstration, Discussion Response to Teaching: Verbalize Understanding, Return Demonstration Education Topics Provided: Continued need for therapy in order to gain strength, safety within his room and upon his return home Time Speech Therapy Time In: 08:30 Speech Therapy Time Out: 09:00 Total Billed Time: 30 Billed Treatment Time 1[address] May 28, 2020 09:18
--- NOTE | 2020-05-28 10:16 | Physical Therapy Daily Note ---
PT Daily Note-Current Subjective Pt. initially somewhat resistive to Rx but with encouragement and education of PT and OT pt. was cooperative. Pain Location: No Pain Reported Mental Status Patient Orientation: Person Transfers SCALE: Activities may be completed with or without assistive devices. 4-Ggbtxcnrlk-tigxvde completes the activity by him/herself with no assistance from a helper. 5-Set-up or Clean-up Assistance-helper sets up or cleans up; patient completes activity. [place] assists only prior to or following the activity. 4-Supervision or Touching Assistance-helper provides verbal cues and/or touchi ng/steadying and/or contact guard assistance as patient completes activity. Assistance may be provided throughout the activity or intermittently. 3-Partial/Moderate Assistance-helper does LESS THAN HALF the effort. [place] lifts, holds or supports trunk or limbs, but provides less than half the effort. 2-Substantial/Maximal Assistance-helper does MORE THAN HALF the effort. [place] lifts or holds trunk or limbs and provides more than half the effort. 8-Blaififxj-snbmbd does ALL the effort. Patient does none of the effort to complete the activity. Or, the assistance of 2 or more helpers is required for the patient to complete the activity. If activity was not attempted, code reason: 7-Patient Refused. 9-Not Applicable-not attempted and the patient did not perform the activity before the current illness, exacerbation or injury. 10-Not Attempted due to Environmental Limitations-(lack of equipment, weather restraints, etc.). 88-Not Attempted due to Medical Conditions or Safety Concerns. Roll Left & Right (QC): 5 Lying to Sitting/Side of Bed(Q: 5 Sit to Stand (QC): 4 Chair/Jru-tv-Crpah Xfer(QC): 4 Toilet Transfer (QC): 4 Car Transfer (QC): 4 pt. needed instruction for use of hands on arms of chair and toilet for safest most efficient TRFs, Gait Training Does the Patient Walk?: Yes Walk 10 feet (QC): 4 Walk 50 ft with 2 Turns(QC): 3 Walk 150 ft (QC): 4 Gait Persons Needed: 1 Gait Assistive Device: FWW pt. needed instruction in use of AD , pt. standing far back from FWW during gait, instructed to position in center , also pt. needed instructed to steer device around objects many times, ambulated 170 ft 150 ft with w/c behind needing to rest only a couple times Stair Training Stair Training: Handrails/: 2 handrails #of Steps: 4 1 Step (curb) (QC): 7 4 Steps (QC): 3 12 Steps (QC): 88 Stairs: Pattern: Reciprocal pt was instructed in/demonstration done stairs up down with rails etc, pt. states he has 4 steps at home in to his house Treatments PT OT co Rx for dressing, toileting, gait , car TRF and stairs. 2 skilled clinicians required for Rx, pt. progressing well and will likely do well with individual Rxs 2-25 Assessment Current Status: Good Progress more cooperative for Rx today. PT Short Term Goals Short Term Goals Time Frame: May 30, 2020 Roll Left & Right: 4 Sit to lyin Lying to sitting on side of be: 4 Sit to stand: 4 Chair/dav-qh-lbxwq transfer: 4 Toilet transfer: 4 Walk 10 feet: 4 PT Linen Room Supervisor Goals Usp Goals PT Linen Room Supervisor Goals Time Frame: Jun 13, 2020 Roll Left & Right (QC): 4 (SBA) Sit to Lying (QC): 4 (SBA) Lying-Sitting on Side/Bed(QC): 4 (SBA) Sit to Stand (QC): 4 (SBA) Chair/Xsj-ud-Upcqp Xfer(QC): 4 (SBA) Toilet Transfer (QC): 4 (SBA) Car Transfer (QC): 4 (SBA) Does the Patient Walk: Yes Walk 10 feet (QC): 4 (SBA) Walk 50ft with 2 Turns (QC): 4 (SBA) Walk 150 ft (QC): 4 (SBA) Walking 10ft on Uneven Surface: 4 (SBA) 1 Step (curb) (QC): 4 (CGA) 4 Steps (QC): 4 (CGA) 12 Steps (QC): 4 (CGA) Picking up an Object (QC): 4 (CGA) Wheel 50 feet with 2 turns (QC: 6 Wheel 150 feet: 6 PT Plan Treatment/Plan Treatment Plan: Continue Plan of Care Treatment Plan: Bed Mobility, Education, Functional Activity Yuri, Functional Strength, Group Therapy, Gait, Safety, Therapeutic Exercise, Transfers Treatment Duration: Jun 13, 2020 Frequency: At least 5 of 7 days/Wk (IRF) Estimated Hrs Per Day: 1.5 hours per day Patient and/or Family Agrees t: Yes Safety Risks/Education Patient Education: Gait Training, Transfer Techniques, Steps, Correct Positioning, Disease Process, Safety Issues Teaching Recipient: Patient Teaching Methods: Demonstration, Discussion Response to Teaching: Verbalize Understanding, Return Demonstration, Reinforcement Needed Time/GCodes Time In: 900 Time Out: 1015 Total Billed Treatment Time: 75 Total Billed Treatment 1,FA50m,GT25m JALEN IBARRA RECREATIONAL SPECIALIST May 28, 2020 10:16
--- NOTE | 2020-05-28 10:35 | Occupational Ther Daily Note ---
OT Current Status-Daily Note Subjective Pt alert, lying in bed. Pt agrees to therapy. No c/o pain. Pt takes increased time to complete tasks throughout therapy. Pt discusses how long he has been in the hospital (since April 04), that he has no friends but he has a lot of help when at home, that he is able to do things for himself though has reasons he can't do things for therapy. Pt will participate in therapy though takes increased time with these discussions prior to initiating therapy. No c/o pain, only itching. Mental Status/Objective Patient Orientation: Person Attachments: IV ADL-Treatment Co-treat with PT ([id number]), skilled instruction and care required by 2 clinicians due to fall risk and self-limiting behavior. PT focusing on transfers, ambulation and stairs while OT focusing on ADLs, B UE placment during functional tasks. Supine <--> EOB, independent with increased time, HOB el evated and bed rails. After setup, pt is able to don/doff shirt by self. Pt then requested to use toilet. CGA to ambulate using FWW, and verbal cues for correct hand placement. Verbal cues to transfer onto toilet(BSC) safely. CGA for pt manipulate clothing after verbal cues to hike pants down. Pt stood with close SBA to cleanse self after toilet, verbal cues and set up to use wipes to cleanse self thoroughly. Pt would of wiped one time and been finished without fully cleansing after BM. Pt unable to sequence how to don/doff lower body clothing, max A. Therapy Code Descriptions/Definitions Functional [place] Measure: 0=Not Assessed/NA 4=Minimal Assistance 1=Total Assistance 5=Supervision or Setup 2=Maximal Assistance 6=Modified [place] 3=Moderate Assistance 7=Complete IndependenceSCALE: Activities may be completed with or without assistive devices. 9-Vcmwtwdzht-vrtohyw completes the activity by him/herself with no assistance from a helper. 5-Set-up or Clean-up Assistance-helper sets up or cleans up; patient completes a ctivity. [place] assists only prior to or following the activity. 4-Supervision or Touching Assistance-helper provides verbal cues and/or touching/steadying and/or contact guard assistance as patient completes activity. Assistance may be provided throughout the activity or intermittently. 3-Partial/Moderate Assistance-helper does LESS THAN HALF the effort. [place] lifts, holds or supports trunk or limbs, but provides less than half the effort. 2-Substantial/Maximal Assistance-helper does MORE THAN HALF the effort. [place] lifts or holds trunk or limbs and provides more than half the effort. 7-Asnpebkkn-ljrnru does ALL the effort. Patient does none of the effort to complete the activity. Or, the assistance of 2 or more helpers is required for the patient to complete the activity. If activity was not attempted, code reason: 7-Patient Refused. 9-Not Applicable-not attempted and the patient did not perform the activity before the current illness, exacerbation or injury. 10-Not Attempted due to Environmental Limitations-(lack of equipment, weather restraints, etc.). 88-Not Attempted due to Medical Conditions or Safety Concerns. Upper Body Dressing (QC): 5 Lower Body Dressing (QC): 2 On/Off Footwear: 2 Toileting Hygiene (QC): 4 Toilet Transfer (QC): 4 Other Treatment See PT notes for ambulation, car transfer and stairs. After session, pt sitting in recliner with call light/phone in reach. All needs met in room. OT Short Term Goals Short Term Goals Eatin Oral hygiene: 5 Toileting hygiene: 3 Shower/bathe self: 3 Upper body dressin Lower body dressin Putting on/taking off footwear: 3 OT Missile Inspector Goals Mcc Goals Time Frame: Jun 06, 2020 Eating (QC): 6 Oral Hygiene (QC): 6 Toileting Hygiene (QC): 6 Shower/Bathe Self (QC): 4 Upper Body Dressing (QC): 6 Lower Body Dressing (QC): 4 On/Off Footwear (QC): 4 Additional Goals: 1-Demonstrate ADL Tasks, 2-Verbalize Understanding, 3- ImproveStrength/Yuri 1=Demonstrate adherence to instructed precautions during ADL tasks. 2=Patient will verbalize/demonstrate understanding of assistive devices/modifications for ADL. 3=Patient will improve strength/tolerance for activity to enable patient to perform ADL's. OT Education/Plan Problem List/Assessment Assessment: Decreased Activ Tolerance, Decreased Safety Aware, Impaired Cognition, Impaired Coordination, Impaired Funct Balance, Impaired Self-Care Skills Discharge Recommendations Plan/Recommendations: Continue POC Treatment Plan/Plan of Care Patient would benefit from OT for education, treatment and training to promote independence in ADL's, mobility, safety and/or upper extremity function for ADL's. Plan of Care: ADL Retraining, Caregiver Training, Concurrent Therapy, Functional Mobility, Group Exercise/Act as Ind, UE Funct Exercise/Act, UE Neuromus Re-Ed/Coord, W/C Management Training Treatment Duration: Jun 06, 2020 Frequency: At least 5 of 7 days/Wk (IRF) Estimated Hrs Per Day: 1.5 hours per day Agreement: Yes Rehab Potential: Poor Time/GCodes Start Time: 09:00 Stop Time: 10:15 Total Time Billed (hr/min): 75 Billed Treatment Time 1 visit-ADL 3 (40 min) FA 2 (35 min) MAKENZIE COMBS May 28, 2020 10:35
--- NOTE | 2020-05-28 11:59 | PM&R Progress Note ---
Subjective HPI/CC On Admission Date Seen by Provider: May 28, 2020 Time Seen by Provider: 11:15 Subjective/Events-last exam 05/28/20: Pt coughing a bit still Will need 25/10 supervision so that may require prison placement Family updated Antibiotics is now completed 05/27/20: Niece is at the bedside Overall doing very well Confusion occurs at times Plenty of family members taking care of him at home so that should be a good and safe discharge 05/26/20: Pt confused Doesnt really want me to see him today Its a struggle per Dr. Isaac also Hgb 10.4 Refusing to eat most of the time 05/25/20: Much improved Good family meeting Family at bedside RLL PNA crackles noted Cough improved with meds Decreased confusion Appetite better BM++ 05/24/20: Patient confused Sometimes willing to participate Slow processing per PCP after I conferred with her indepth about his hx Incontinent of urine noted Levaquin maintained for RLL PNA CXR reviewed Review of Systems General: Fatigue, Malaise Pulmonary: Dyspnea Neurological: Weakness, Confusion Objective Exam Vital Signs Vital Signs Date Time Temp Pulse Resp B/P (MAP) Pulse Ox O2 Delivery O2 Flow Rate FiO2 05/29/20 05:33 36.9 88 18 126/61 (82) 100 Room Air Capillary Refill : Less Than 3 Seconds General Appearance: No Apparent Distress, WD/WN, Anxious HEENT: PERRL/EOMI Neck: Full Range of Motion, Normal Inspection, Non Tender, Supple Respiratory: Chest Non Tender, No Accessory Muscle Use, No Respiratory Dist ress, Crackles (CRACKLES IN RIGHT BASE) Cardiovascular: Regular Rate, Rhythm, No Edema Gastrointestinal: Normal Bowel Sounds, No Organomegaly, No Pulsatile Mass, Non Tender, Soft Rectal: Deferred Back: Normal Inspection, No CVA Tenderness, No Vertebral Tenderness Extremity: Normal Capillary Refill, Non Tender, No Calf Tenderness, No Pedal Edema Neurologic/Psychiatric: Alert, Oriented x3, No Motor/Sensory Deficits, Normal Mood/Affect, 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 FIM Transfers Therapy Code Descriptions/Definitions Functional [place] Measure: 0=Not Assessed/NA 4=Minimal Assistance 1=Total Assistance 5=Supervision or Setup 2=Maximal Assistance 6=Modified [place] 3=Moderate Assistance 7=Complete IndependenceSCALE: Activities may be completed with or without assistive devices. 5-Edjgzihxjo-tywxdfa completes the activity by him/herself with no assistance from a helper. 5-Set-up or Clean-up Assistance-helper sets up or cleans up; patient completes activity. [place] assists only prior to or following the activity. 4-Supervision or Touching Assistance-helper provides verbal cues and/or touching/steadying and/or contact guard assistance as patient completes activity. Assistance may be provided throughout the activity or intermittently. 3-Partial/Moderate Assistance-helper does LESS THAN HALF the effort. [place] lifts, holds or supports trunk or limbs, but provides less than half the effort. 2-Substantial/Maximal Assistance-helper does MORE THAN HALF the effort. [place] lifts or holds trunk or limbs and provides more than half the effort. 6-Vlyjtzlzg-wqxzjj does ALL the effort. Patient does none of the effort to complete the activity. Or, the assistance of 2 or more helpers is required for the patient to complete the activity. If activity was not attempted, code reason: 7-Patient Refused. 9-Not Applicable-not attempted and the patient did not perform the activity before the current illness, exacerbation or injury. 10-Not Attempted due to Environmental Limitations-(lack of equipment, weather restraints, etc.). 88-Not Attempted due to Medical Conditions or Safety Concerns. Roll Left to Right (QC): 5 Sit to Lying (QC): 4 Sit to Stand (QC): 4 Chair/Hss-fe-Rmfxn Xfer(QC): 4 Car Transfer (QC): 4 Gait Training Does the Patient Walk?: Yes Distance: 300', 120' Walk 10 feet (QC): 4 Walk 50 ft with 2 Turns(QC): 3 Walk 150 ft (QC): 4 Walking 10ft/uneven surface-QC: 7 Gait Persons Needed: 1 Gait Assistive Device: FWW Wheelchair Training Does the Pt Use a Wheelchair?: Yes Wheel 50 ft with 2 turns (QC): 3 Wheel 150 ft (QC): 7 Type of Wheelchair: Manual (3) Stair Training Stair Training: Handrails/: 2 handrails #of Steps: 4 1 Step (curb) (QC): 7 4 Steps (QC): 3 12 Steps (QC): 88 Stairs: Pattern: Reciprocal Balance Picking up an Object (QC): 7 ADL-Treatment Eating (QC): 7 Oral Hygiene (QC): 6 Bathing Location: L Arm, R Arm, Chest Shower/Bathe Self (QC): 4 Upper Body Dressing (QC): 5 Lower Body Dressing (QC): 2 On/Off Footwear (QC): 2 Toileting Hygiene (QC): 4 Toilet Transfer (QC): 4 Assessment/Plan Assessment and Plan Assess & Plan/Chief Complaint Assessment: Critical illness myopathy s/p cardiogenic shock CKD Stage 4 HTN DM Confusion Cebrovascular disease on MRI Fall risk Plan: IRF protocol Monitor closely Monitor creat Cardiology consultation 05/24/20: Fall risk Incontinence Monitor confusion PCP meeting tomorrow with family 05/25/20: Improved status today Improved strength Less confusion 05/26/20: Monitor BP Fall risk 05/27/20: Confusion noted Appears there are plenty of family members able to check in on him 05/28/20: Needs NH or family with 25/10 supervision (1) Pneumonia Status: Acute Assessment & Plan: PT ON LEVAQUIN 500MG Q48H, MONITOR CHEST XRAY ON 05/27/2020 Qualifiers: Laterality: right Lung location: lower lobe of lung (2) Acute on chronic kidney failure Assessment & Plan: CONTINUE TO AVOID NEPHROTOXIC AGENTS WILL SEE DR. PORTILLO OUTPATIENT IN FOLLOW UP. Qualifiers: Acute renal failure type: unspecified Chronic kidney disease stage: stage 4 (severe) Qualified Codes: N17.9 - Acute kidney failure, unspecified; N18.4 - Chronic kidney disease, stage 4 (severe) (3) Acute and subacute ischemic heart disease Assessment & Plan: PT HAS EJECTION FRACTION OF 15% ON EVALUATION AT [facility]. PT CONTINUES TO NEED THERAPY FOR STRENGTHENING, HE HAS REQUESTED THAT HE GOES TO SEE DR. ALDANA IN FOLLOW UP. (4) DMII (diabetes mellitus, type 2) Assessment & Plan: PT ON LEVEMIR 5 UNITS BID AND ENCOURAGE HIM TO HAVE A SNACK OF AT LEAST 15 GRAMS OF PROTEIN AT HS. BLOOD GLUCOSE HIGHER THIS MORNING, MONITOR BLOOD GLUCOSE FINGER STICKS OVER THE NEXT FEW DAYS TO SEE IF WE NEED TO INCREASE LEVEMIR BACK UP TO 6 UNITS BID. Qualifiers: Diabetes mellitus intermediate insulin use: with filler leaf cutter long use Diabetes mellitus complication status: with kidney complications Diabetes mellitus complication detail: with chronic kidney disease Chronic kidney disease stage: stage 4 (severe) Qualified Codes: E11.22 - Type 2 diabetes mellitus with diabetic chronic kidney disease; N18.4 - Chronic kidney disease, stage 4 (severe); Z79.4 - alf (current) use of insulin (5) Cancer of prostate Status: Chronic Assessment & Plan: CONTINUE WITH SUPPORTIVE CARE (6) CKD (chronic kidney disease) stage 4, GFR 15-29 ml/min (7) Cerebrovascular disease Assessment & Plan: STATUS POST EMBOLIC STROKE - PT NEEDS THERAPY FOR STRENGTHENING AND WILL NEED OUTPATIENT THERAPY ON DISCHARGE. (8) S/P coronary artery stent placement (9) BPH (benign prostatic hyperplasia) Qualifiers: Lower urinary tract symptom presence: symptoms present Lower urinary tract symptom detail: urinary frequency Qualified Codes: N40.1 - Benign prostatic hyperplasia with lower urinary tract symptoms; R35.0 - Frequency of micturition (10) Cardiomyopathy Qualifiers: Cardiomyopathy type: ischemic Qualified Codes: I25.5 - Ischemic cardiomyopathy GHADA SANDOVAL DO May 28, 2020 11:59
[2020-05-28] MEDS ORDERED: GLIM2TAB4 PO (15:12)
[2020-05-28] MEDS ORDERED: CLOP75TA69 PO (15:12)
[2020-05-28] MEDS ORDERED: AMLO-251 PO (15:12)
[2020-05-28] MEDS ORDERED: NF-BISOP5 PO (15:12)
[2020-05-28] MEDS ORDERED: SIMV20TA26 PO (15:12)
[2020-05-28] MEDS ORDERED: LORA-404 PO (15:12)
[2020-05-28] MEDS ORDERED: TMSL.4C PO (15:12)
[2020-05-28 17:10] VITALS: BP 112/58
[2020-05-28] MEDS: MELATONIN 3 MG TABLET PO SCH (21:25)
[2020-05-29] MEDS: guaiFENesin/CODEINE (ROBITUSSIN AC) 10ML UDC PO SCH ×6 (01:00→21:40)
[2020-05-29 05:33] VITALS: BP 126/61
[2020-05-29] MEDS: inSUlin ASPART (NovoLOG) 1 UNIT/0.01 ML (CHARGE PER UNIT) SC SCH ×4 (05:37→21:39)
[2020-05-29] MEDS: CATHETER FLUSH 10 ML SYR IV SCH ×3 (06:36→21:38)
--- NOTE | 2020-05-29 09:04 | Progress Note ---
Subjective Subjective Date Seen by Provider: May 29, 2020 Time Seen by Provider: 09:00 pt reports that he is feeling better, staff notes that he is eating better today than on previous days. Suleman reports that he is a picky eater and he does not like a lot of other people's cooking. he reports that he feels like he is doing good with therapy. nursing staff reports that he seems to be in better spirits, less irritable than on admission, more willing to participate in therapy services. Review of Systems General: Fatigue, Malaise HEENT: No Head Aches, No Visual Changes Pulmonary: Dyspnea Cardiovascular: No: Chest Pain, Palpitations Gastrointestinal: Constipation; No: Nausea, Abdominal Pain Genitourinary: No Dysuria Musculoskeletal: No: back pain Neurological: Weakness, Confusion All Other Systems Reviewed All Other Systems Reviewed: Yes Objective Exam Vital Signs Vital Signs - First Documented 05/23/20 05/23/20 16:15 17:47 Temp 36.2 Pulse 73 Resp 16 B/P (MAP) 105/58 (74) Pulse Ox 100 O2 Delivery Room Air Capillary Refill : Less Than 3 Seconds General Appearance: No Apparent Distress, WD/WN Eyes: Bilateral Eye Normal Inspection, Bilateral Eye PERRL, Bilateral Eye EOMI HEENT: PERRL/EOMI Neck: Full Range of Motion, Normal Inspection, Non Tender, Supple Respiratory: Chest Non Tender, No Accessory Muscle Use, No Respiratory Distress, Crackles (CRACKLES IN RIGHT BASE) Cardiovascular: Regular Rate, Rhythm, No Edema Gastrointestinal: Normal Bowel Sounds, No Organomegaly, No Pulsatile Mass, Non Tender, Soft Rectal: Deferred Back: Normal Inspection Extremity: Normal Capillary Refill, Non Tender, No Calf Tenderness, No Pedal Edema Neurologic/Psychiatric: Alert, Oriented x3, No Motor/Sensory Deficits, Normal Mood/Affect, 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 THEY ARE WONDERING ABOUT HIS HOME SITUATION, HOME HEALTH, HOW BEST TO GET HIS HOME READY FOR HIM TO RESIDE THERE ALONE. THEY ARE WANTING TO KNOW IF A HOME EVAL CAN BE DONE PRIOR TO SULEMAN'S DISCHARGE SO THAT CAN GET THE HOME PREPARED FOR HIM SAFELY POSSIBLE. DISCUSSED WITH REHAB STAFF THEY WILL CALL AND SET UP A FAMILY MEETING AND DISCUSS OPTIONS/IDEAS FOR HIS DISCHARGE. Problems: (1) Pneumonia Qualifiers: Assessment & Plan: PT SHOULD BE FINISHING LEVAQUIN THIS WEEK, SYMPTOMS IMPROVED. (2) Acute on chronic kidney failure Qualifiers: Qualified Codes: N17.9 - Acute kidney failure, unspecified; N18.4 - Chronic kidney disease, stage 4 (severe) Assessment & Plan: CONTINUE TO AVOID NEPHROTOXIC AGENTS WILL SEE DR. PORTILLO OUTPATIENT IN FOLLOW UP. (3) Acute and subacute ischemic heart disease Assessment & Plan: PT HAS EJECTION FRACTION OF 15% ON EVALUATION AT [place]. PT CONTINUES TO NEED THERAPY FOR STRENGTHENING, HE HAS REQUESTED THAT HE GOES TO SEE DR. ALDANA IN FOLLOW UP. (4) DMII (diabetes mellitus, type 2) Qualifiers: Qualified Codes: E11.22 - Type 2 diabetes mellitus with diabetic chronic kidney disease; N18.4 - Chronic kidney disease, stage 4 (severe); Z79.4 - correction (current) use of insulin Assessment & Plan: PT ON LEVEMIR 5 UNITS BID AND ENCOURAGE HIM TO HAVE A SNACK OF AT LEAST 15 GRAMS OF PROTEIN AT HS. BLOOD GLUCOSE HIGHER THIS MORNING, MONITOR BLOOD GLUCOSE FINGER STICKS OVER THE NEXT FEW DAYS TO SEE IF WE NEED TO INCREASE LEVEMIR BACK UP TO 6 UNITS BID. (5) Cancer of prostate Assessment & Plan: CONTINUE WITH SUPPORTIVE CARE (6) CKD (chronic kidney disease) stage 4, GFR 15-29 ml/min (7) Cerebrovascular disease Assessment & Plan: STATUS POST EMBOLIC STROKE - PT NEEDS THERAPY FOR STRENGTHENING AND WILL NEED OUTPATIENT THERAPY ON DISCHARGE. (8) S/P coronary artery stent placement (9) BPH (benign prostatic hyperplasia) Qualifiers: Qualified Codes: N40.1 - Benign prostatic hyperplasia with lower urinary tract symptoms; R35.0 - Frequency of micturition (10) Cardiomyopathy Qualifiers: Qualified Codes: I25.5 - Ischemic cardiomyopathy RANDI VIGIL MD May 29, 2020 09:04
--- NOTE | 2020-05-29 09:56 | Physical Therapy Daily Note ---
PT Daily Note-Current Subjective Patient in bed pre tx, agrees to PT with encouragement, will be co-treating with OT due to poor patient mobility, strength, endurance, poor safety awareness, coordinate UE and LE during activity, safety and reduce risk of falls Appearance Patient in therapy gym post tx to continue with OT Mental Status Patient Orientation: Person, Confused, Place, Situation Transfers SCALE: Activities may be completed with or without assistive devices. 8-Ztykbqrjzf-wgooyii completes the activity by him/herself with no assistance from a helper. 5-Set-up or Clean-up Assistance-helper sets up or cleans up; patient completes activity. [place] assists only prior to or following the activity. 4-Supervision or Touching Assistance-helper provides verbal cues and/or touching/steadying and/or contact guard assistance as patient completes activity. Assistance may be provided throughout the activity or intermittently. 3-Partial/Moderate Assistance-helper does LESS THAN HALF the effort. [place] lifts, holds or supports trunk or limbs, but provides less than half the effort. 2-Substantial/Maximal Assistance-helper does MORE THAN HALF the effort. [place] lifts or holds trunk or limbs and provides more than half the effort. 7-Hwszgadun-lunkmu does ALL the effort. Patient does none of the effort to complete the activity. Or, the assistance of 2 or more helpers is required for the patient to complete the activity. If activity was not attempted, code reason: 7-Patient Refused. 9-Not Applicable-not attempted and the patient did not perform the activity before the current illness, exacerbation or injury. 10-Not Attempted due to Environmental Limitations-(lack of equipment, weather restraints, etc.). 88-Not Attempted due to Medical Conditions or Safety Concerns. Roll Left & Right (QC): 6 Lying to Sitting/Side of Bed(Q: 4 Sit to Stand (QC): 4 Chair/Etp-gx-Aujis Xfer(QC): 4 Patient sat on the side of the bed and cleaned up and started dressing with assist, stood to pull up pants and then started ambulation. Patient needed a lot of assist with dressing, very slow. Patient needed to toilet during tx, needed CGA with toilet transfer Gait Training Distance: 150'x2 Walk 10 feet (QC): 4 Walk 50 ft with 2 Turns(QC): 4 Walk 150 ft (QC): 4 Gait Assistive Device: FWW WC follow, tends to keep walker too far in front, needs frequent cues for direction Exercises standing balance peg activity Treatments PT performed bed mobility and transfers, ambulation, standing balance activity, standing and positioning during dressing, assist with toilet transfer, OT performed dressing, toileting, peg balance activity Assessment Current Status: Fair Progress slightly less resistant to participating PT Short Term Goals Short Term Goals Time Frame: May 30, 2020 Roll Left & Right: 4 Sit to lyin Lying to sitting on side of be: 4 Sit to stand: 4 Chair/bhl-jy-ltjdu transfer: 4 Toilet transfer: 4 Walk 10 feet: 4 PT Dental Claims Processor Goals Dental Claims Processor Goals PT Dental Claims Processor Goals Time Frame: Jun 13, 2020 Roll Left & Right (QC): 4 (SBA) Sit to Lying (QC): 4 (SBA) Lying-Sitting on Side/Bed(QC): 4 (SBA) Sit to Stand (QC): 4 (SBA) Chair/Mgc-kp-Xgkrr Xfer(QC): 4 (SBA) Toilet Transfer (QC): 4 (SBA) Car Transfer (QC): 4 (SBA) Does the Patient Walk: Yes Walk 10 feet (QC): 4 (SBA) Walk 50ft with 2 Turns (QC): 4 (SBA) Walk 150 ft (QC): 4 (SBA) Walking 10ft on Uneven Surface: 4 (SBA) 1 Step (curb) (QC): 4 (CGA) 4 Steps (QC): 4 (CGA) 12 Steps (QC): 4 (CGA) Picking up an Object (QC): 4 (CGA) Wheel 50 feet with 2 turns (QC: 6 Wheel 150 feet: 6 PT Plan Problem List Problem List: Activity Tolerance, Functional Strength, Safety, Balance, Gait, Transfer, Bed Mobility, ROM Treatment/Plan Treatment Plan: Continue Plan of Care Treatment Plan: Bed Mobility, Education, Functional Activity Yuri, Functional Strength, Group Therapy, Gait, Safety, Therapeutic Exercise, Transfers Treatment Duration: Jun 13, 2020 Frequency: At least 5 of 7 days/Wk (IRF) Estimated Hrs Per Day: 1.5 hours per day Patient and/or Family Agrees t: Yes Safety Risks/Education Patient Education: Gait Training, Transfer Techniques, Correct Positioning, Safety Issues Teaching Recipient: Patient Teaching Methods: Demonstration, Discussion Response to Teaching: Reinforcement Needed Time/GCodes Time In: 0900 Time Out: 1000 Total Billed Treatment Time: 60 Total Billed Treatment 1 visit FA 30' GT 15' NM 15' FRANK YATES PT May 29, 2020 09:56
[2020-05-29] MEDS: DOCUSATE SODIUM 100 MG (COLACE) CAP PO SCH ×2 (10:13→21:40)
[2020-05-29] MEDS: TICAGRELOR 90 MG TABLET (BRILINTA) PO SCH ×2 (10:14→21:39)
[2020-05-29] MEDS: ASPIRIN E.C. 81 MG (ECOTRIN) TAB PO SCH (10:14)
[2020-05-29] MEDS: CARVEDILOL 3.125 MG (COREG) TABLET PO SCH ×2 (10:14→17:37)
[2020-05-29] MEDS: BENZONATATE 100 MG (TESSALON) CAPSULE PO SCH ×3 (10:14→21:39)
[2020-05-29] MEDS: SENNA W/DOCUSATE (SENOKOT S) TABLET PO SCH ×2 (10:14→21:39)
--- NOTE | 2020-05-29 10:15 | Occupational Ther Daily Note ---
OT Current Status-Daily Note Subjective Pt alert, lying in bed. Pt agrees to therapy, though will talk and discuss how he doesn't need therapy. No c/o pain. Mental Status/Objective Patient Orientation: Person, Place Attachments: IV ADL-Treatment Co-treat with PT ([id number]), skilled instruction and care required by 2 clinicians due to fall risk and self-limiting behavior. PT focusing on transfer s, ambulation and stairs while OT focusing on ADLs, B UE placment during functional tasks. Supine <--> EOB, independent with increased time, HOB elevated and bed rails. Attempted to have pt take shower, pt refused. Pt did complete upper bathing with back pack. Pt unable to initially sequence donning shirt then after assistance able to finish donning shirt. Pt able to thread R L E into pant leg then unable to problem solve how to thread L LE. CGA in standing while pt hiked pants over hips. Max A to don/doff socks. Pt requested to use bathroom during therapy. Pt had to urinate, assist to initiate using urinal and placing then assist to dump. Therapy Code Descriptions/Definitions Functional [place] Measure: 0=Not Assessed/NA 4=Minimal Assistance 1=Total Assistance 5=Supervision or Setup 2=Maximal Assistance 6=Modified [place] 3=Moderate Assistance 7=Complete IndependenceSCALE: Activities may be completed with or without assistive devices. 9-Zovjdpifif-nfratnh completes the activity by him/herself with no assistance from a helper. 5-Set-up or Clean-up Assistance-helper sets up or cleans up; patient completes activity. [place] assists only prior to or following the activity. 4-Supervision or Touching Assistance-helper provides verbal cues and/or touching/steadying and/or contact guard assistance as patient completes activity. Assistance may be provided throughout the activity or intermittently. 3-Partial/Moderate Assistance-helper does LESS THAN HALF the effort. [place] lifts, holds or supports trunk or limbs, but provides less than half the effort. 2-Substantial/Maximal Assistance-helper does MORE THAN HALF the effort. [place] lifts or holds trunk or limbs and provides more than half the effort. 0-Udesxcacw-xhumno does ALL the effort. Patient does none of the effort to complete the activity. Or, the assistance of 2 or more helpers is required for the patient to complete the activity. If activity was not attempted, code reason: 7-Patient Refused. 9-Not Applicable-not attempted and the patient did not perform the activity before the current illness, exacerbation or injury. 10-Not Attempted due to Environmental Limitations-(lack of equipment, weather restraints, etc.). 88-Not Attempted due to Medical Conditions or Safety Concerns. Eating (QC): 6 Upper Body Dressing (QC): 3 Lower Body Dressing (QC): 2 On/Off Footwear: 2 Toileting Hygiene (QC): 3 Toilet Transfer (QC): 4 Other Treatment See PT notes for pt's ambulation progress. Pt then working on standing balance and endurance while completing fine motor and problem solving skills. Pt required max cues to follow 2 step directions. After therapy, pt lying in bed with call light/phone in reach. All needs met in room. OT Short Term Goals Short Term Goals Eatin Oral hygiene: 5 Toileting hygiene: 3 Shower/bathe self: 3 Upper body dressin Lower body dressin Putting on/taking off footwear: 3 OT Fdc Goals Field Technical Specialist Goals Time Frame: Jun 06, 2020 Eating (QC): 6 Oral Hygiene (QC): 6 Toileting Hygiene (QC): 6 Shower/Bathe Self (QC): 4 Upper Body Dressing (QC): 6 Lower Body Dressing (QC): 4 On/Off Footwear (QC): 4 Additional Goals: 1-Demonstrate ADL Tasks, 2-Verbalize Understanding, 3- ImproveStrength/Yuri 1=Demonstrate adherence to instructed precautions during ADL tasks. 2=Patient will verbalize/demonstrate understanding of assistive devices/modifications for ADL. 3=Patient will improve strength/tolerance for activity to enable patient to perform ADL's. OT Education/Plan Problem List/Assessment Assessment: Decreased Activ Tolerance, Decreased Safety Aware, Impaired Cognition, Impaired Coordination, Impaired Funct Balance, Impaired Self-Care Skills Discharge Recommendations Plan/Recommendations: Continue POC Treatment Plan/Plan of Care Patient would benefit from OT for education, treatment and training to promote independence in ADL's, mobility, safety and/or upper extremity function for ADL's. Plan of Care: ADL Retraining, Caregiver Training, Concurrent Therapy, Functional Mobility, Group Exercise/Act as Ind, UE Funct Exercise/Act, UE Neuromus Re-Ed/Coord, W/C Management Training Treatment Duration: Jun 06, 2020 Frequency: At least 5 of 7 days/Wk (IRF) Estimated Hrs Per Day: 1.5 hours per day Agreement: Yes Rehab Potential: Poor Time/GCodes Start Time: 09:00 Stop Time: 10:15 Total Time Billed (hr/min): 75 Billed Treatment Time 1 visit-ADL 3 (45 min) FA 2 (30 min) co-treat with PT [id number], individual [id number] MAKENZIE COMBS May 29, 2020 10:15
[2020-05-29] MEDS: polyethylene glycoL POWDER 17 GM (MIRALAX) PACK PO SCH ×2 (10:46→21:40)
--- NOTE | 2020-05-29 11:41 | PM&R Progress Note ---
Subjective HPI/CC On Admission Date Seen by Provider: May 29, 2020 Time Seen by Provider: 12:00 Subjective/Events-last exam 05/29/20: Cough improved Status improved Better mood 05/28/20: Pt coughing a bit still Will need 25/10 supervision so that may require skilled nursing placement Family updated Antibiotics is now completed 05/27/20: Niece is at the bedside Overall doing very well Confusion occurs at times Plenty of family members taking care of him at home so that should be a good and safe discharge 05/26/20: Pt confused Doesnt really want me to see him today Its a struggle per Dr. Isaac also Hgb 10.4 Refusing to eat most of the time 05/25/20: Much improved Good family meeting Family at bedside RLL PNA crackles noted Cough improved with meds Decreased confusion Appetite better BM++ 05/24/20: Patient confused Sometimes willing to participate Slow processing per PCP after I conferred with her indepth about his hx Incontinent of urine noted Levaquin maintained for RLL PNA CXR reviewed Review of Systems General: Fatigue, Malaise Neurological: Weakness, Incoordination Objective Exam Vital Signs Vital Signs Date Time Temp Pulse Resp B/P (MAP) Pulse Ox O2 Delivery O2 Flow Rate FiO2 05/29/20 21:53 Room Air 05/29/20 16:33 36.6 89 16 103/59 (74) 99 Capillary Refill : Less Than 3 Seconds General Appearance: No Apparent Distress, WD/WN, Anxious HEENT: PERRL/EOMI Neck: Full Range of Motion, Normal Inspection, Non Tender, Supple Respiratory: Chest Non Tender, No Accessory Muscle Use, No Respiratory Distress, Crackles (CRACKLES IN RIGHT BASE) Cardiovascular: Regular Rate, Rhythm, No Edema Gastrointestinal: Normal Bowel Sounds, No Organomegaly, No Pulsatile Mass, Non Tender, Soft Rectal: Deferred Back: Normal Inspection, No CVA Tenderness, No Vertebral Tenderness Extremity: Normal Capillary Refill, Non Tender, No Calf Tenderness, No Pedal Edema Neurologic/Psychiatric: Alert, Oriented x3, No Motor/Sensory Deficits, Normal Mood/Affect, lab coordinator II-XII Norm as Tested Skin: Normal Color, Warm/Dry Lymphatic: No Adenopathy Results/Procedures Lab Patient resulted labs reviewed. FIM Transfers Therapy Code Descriptions/Definitions Functional [place] Measure: 0=Not Assessed/NA 4=Minimal Assistance 1=Total Assistance 5=Supervision or Setup 2=Maximal Assistance 6=Modified [place] 3=Moderate Assistance 7=Complete IndependenceSCALE: Activities may be completed with or without assistive devices. 1-Mddybhqeat-zonqqsk completes the activity by him/herself with no assistance from a helper. 5-Set-up or Clean-up Assistance-helper sets up or cleans up; patient completes activity. [place] assists only prior to or following the activity. 4-Supervision or Touching Assistance-helper provides verbal cues and/or touching/steadying and/or contact guard assistance as patient completes a ctivity. Assistance may be provided throughout the activity or intermittently. 3-Partial/Moderate Assistance-helper does LESS THAN HALF the effort. [place] lifts, holds or supports trunk or limbs, but provides less than half the effort. 2-Substantial/Maximal Assistance-helper does MORE THAN HALF the effort. [place] lifts or holds trunk or limbs and provides more than half the effort. 9-Gppurqcjh-ellfko does ALL the effort. Patient does none of the effort to complete the activity. Or, the assistance of 2 or more helpers is required for the patient to complete the activity. If activity was not attempted, code reason: 7-Patient Refused. 9-Not Applicable-not attempted and the patient did not perform the activity before the current illness, exacerbation or injury. 10-Not Attempted due to Environmental Limitations-(lack of equipment, weather restraints, etc.). 88-Not Attempted due to Medical Conditions or Safety Concerns. Roll Left to Right (QC): 6 Sit to Lying (QC): 4 Sit to Stand (QC): 4 Chair/Tyb-ay-Oripr Xfer(QC): 4 Car Transfer (QC): 4 Gait Training Does the Patient Walk?: Yes Distance: 150'x2 Walk 10 feet (QC): 4 Walk 50 ft with 2 Turns(QC): 4 Walk 150 ft (QC): 4 Walking 10ft/uneven surface-QC: 7 Gait Persons Needed: 1 Gait Assistive Device: FWW Wheelchair Training Does the Pt Use a Wheelchair?: Yes Wheel 50 ft with 2 turns (QC): 3 Wheel 150 ft (QC): 7 Type of Wheelchair: Manual (3) Stair Training Stair Training: Handrails/: 2 handrails #of Steps: 4 1 Step (curb) (QC): 7 4 Steps (QC): 3 12 Steps (QC): 88 Stairs: Pattern: Reciprocal Balance Picking up an Object (QC): 7 ADL-Treatment Eating (QC): 7 Oral Hygiene (QC): 6 Bathing Location: L Arm, R Arm, Chest Shower/Bathe Self (QC): 4 Upper Body Dressing (QC): 5 Lower Body Dressing (QC): 2 On/Off Footwear (QC): 2 Toileting Hygiene (QC): 4 Toilet Transfer (QC): 4 Assessment/Plan Assessment and Plan Assess & Plan/Chief Complaint Assessment: Critical illness myopathy s/p cardiogenic shock CKD Stage 4 HTN DM Confusion Cebrovascular disease on MRI Fall risk Plan: IRF protocol Monitor closely Monitor creat Cardiology consultation 05/24/20: Fall risk Incontinence Monitor confusion PCP meeting tomorrow with family 05/25/20: Improved status today Improved strength Less confusion 05/26/20: Monitor BP Fall risk 05/27/20: Confusion noted Appears there are plenty of family members able to check in on him 05/28/20: Needs NH or family with 25/10 supervision 05/29/20: Monitor BP Cough improved (1) Pneumonia Status: Acute Assessment & Plan: PT ON LEVAQUIN 500MG Q48H, MONITOR CHEST XRAY ON 05/27/2020 Qualifiers: Laterality: right Lung location: lower lobe of lung (2) Acute on chronic kidney failure Assessment & Plan: CONTINUE TO AVOID NEPHROTOXIC AGENTS WILL SEE DR. PORTILLO OUTPATIENT IN FOLLOW UP. Qualifiers: Acute renal failure type: unspecified Chronic kidney disease stage: stage 4 (severe) Qualified Codes: N17.9 - Acute kidney failure, unspecified; N18.4 - Chronic kidney disease, stage 4 (severe) (3) Acute and subacute ischemic heart disease Assessment & Plan: PT HAS EJECTION FRACTION OF 15% ON EVALUATION AT [place]. PT CONTINUES TO NEED THERAPY FOR STRENGTHENING, HE HAS REQUESTED THAT HE GOES TO SEE DR. ALDANA IN FOLLOW UP. (4) DMII (diabetes mellitus, type 2) Assessment & Plan: PT ON LEVEMIR 5 UNITS BID AND ENCOURAGE HIM TO HAVE A SNACK OF AT LEAST 15 GRAMS OF PROTEIN AT HS. BLOOD GLUCOSE HIGHER THIS MORNING, MONITOR BLOOD GLUCOSE FINGER STICKS OVER THE NEXT FEW DAYS TO SEE IF WE NEED TO INCREASE LEVEMIR BACK UP TO 6 UNITS BID. Qualifiers: Diabetes mellitus terminal make up operator insulin use: with long-term use Diabetes mellitus complication status: with kidney complications Diabetes mellitus complication detail: with chronic kidney disease Chronic kidney disease stage: stage 4 (severe) Qualified Codes: E11.22 - Type 2 diabetes mellitus with diabetic chronic kidney disease; N18.4 - Chronic kidney disease, stage 4 (severe); Z79.4 - terminal make up operator (current) use of insulin (5) Cancer of prostate Status: Chronic Assessment & Plan: CONTINUE WITH SUPPORTIVE CARE (6) CKD (chronic kidney disease) stage 4, GFR 15-29 ml/min (7) Cerebrovascular disease Assessment & Plan: STATUS POST EMBOLIC STROKE - PT NEEDS THERAPY FOR STRENGTHENING AND WILL NEED OUTPATIENT THERAPY ON DISCHARGE. (8) S/P coronary artery stent placement (9) BPH (benign prostatic hyperplasia) Qualifiers: Lower urinary tract symptom presence: symptoms present Lower urinary tract symptom detail: urinary frequency Qualified Codes: N40.1 - Benign prostatic hyperplasia with lower urinary tract symptoms; R35.0 - Frequency of micturition (10) Cardiomyopathy Qualifiers: Cardiomyopathy type: ischemic Qualified Codes: I25.5 - Ischemic cardiomyopathy GHADA SANDOVAL DO May 29, 2020 11:41
--- NOTE | 2020-05-29 13:29 | Physical Therapy Daily Note ---
PT Daily Note-Current Subjective Patient in bed pre tx, agrees reluctantly to PT with encouragement, voices no complaints of pain. Appearance Patient in bed post tx with nurse call, phone, tray, all needs met. Bed alarm on. Mental Status Patient Orientation: Person, Confused, Place, Situation Transfers SCALE: Activities may be completed with or without assistive devices. 0-Vtlrwwjnbk-aeuduza completes the activity by him/herself with no assistance from a helper. 5-Set-up or Clean-up Assistance-helper sets up or cleans up; patient completes activity. [place] assists only prior to or following the activity. 4-Supervision or Touching Assistance-helper provides verbal cues and/or touching/steadying and/or contact guard assistance as patient completes activity. Assistance may be provided throughout the activity or intermittently. 3-Partial/Moderate Assistance-helper does LESS THAN HALF the effort. [place] lifts, holds or supports trunk or limbs, but provides less than half the effort. 2-Substantial/Maximal Assistance-helper does MORE THAN HALF the effort. [place] lifts or holds trunk or limbs and provides more than half the effort. 5-Nxfnntbco-rfwogq does ALL the effort. Patient does none of the effort to complete the activity. Or, the assistance of 2 or more helpers is required for the patient to complete the activity. If activity was not attempted, code reason: 7-Patient Refused. 9-Not Applicable-not attempted and the patient did not perform the activity before the current illness, exacerbation or injury. 10-Not Attempted due to Environmental Limitations-(lack of equipment, weather restraints, etc.). 88-Not Attempted due to Medical Conditions or Safety Concerns. Exercises Supine Ex: Ankle pumps, Quad Set, Glut sets, Heel Slides, Short Arc Quads, Straight leg raise, Hip abd/add Supine Reps: 15 Treatments LE exercise Assessment Current Status: Poor Progress Patient completes exercises with encouragement and redirection. Patient is irritated with any activity he has to perform. States he just wants to go home. PT Short Term Goals Short Term Goals Time Frame: May 30, 2020 Roll Left & Right: 4 Sit to lyin Lying to sitting on side of be: 4 Sit to stand: 4 Chair/csk-lo-yeefl transfer: 4 Toilet transfer: 4 Walk 10 feet: 4 PT [place]ber Goals [place] Goals PT [place] Goals Time Frame: Jun 13, 2020 Roll Left & Right (QC): 4 (SBA) Sit to Lying (QC): 4 (SBA) Lying-Sitting on Side/Bed(QC): 4 (SBA) Sit to Stand (QC): 4 (SBA) Chair/Cki-jt-Aqpeh Xfer(QC): 4 (SBA) Toilet Transfer (QC): 4 (SBA) Car Transfer (QC): 4 (SBA) Does the Patient Walk: Yes Walk 10 feet (QC): 4 (SBA) Walk 50ft with 2 Turns (QC): 4 (SBA) Walk 150 ft (QC): 4 (SBA) Walking 10ft on Uneven Surface: 4 (SBA) 1 Step (curb) (QC): 4 (CGA) 4 Steps (QC): 4 (CGA) 12 Steps (QC): 4 (CGA) Picking up an Object (QC): 4 (CGA) Wheel 50 feet with 2 turns (QC: 6 Wheel 150 feet: 6 PT Plan Problem List Problem List: Activity Tolerance, Functional Strength, Safety, Balance, Gait, Transfer, Bed Mobility, ROM Treatment/Plan Treatment Plan: Continue Plan of Care Treatment Plan: Bed Mobility, Education, Functional Activity Yuri, Functional Strength, Group Therapy, Gait, Safety, Therapeutic Exercise, Transfers Treatment Duration: Jun 13, 2020 Frequency: At least 5 of 7 days/Wk (IRF) Estimated Hrs Per Day: 1.5 hours per day Patient and/or Family Agrees t: Yes Safety Risks/Education Patient Education: Correct Positioning, Safety Issues Teaching Recipient: Patient Teaching Methods: Demonstration, Discussion Response to Teaching: Reinforcement Needed Time/GCodes Time In: 1315 Time Out: 1330 Total Billed Treatment Time: 15 Total Billed Treatment 1 visit EX FRANK COX PT May 29, 2020 13:29
--- NOTE | 2020-05-29 13:38 | Speech Therapy Daily Note ---
Speech Daily Progress Note Subjective Date Seen by Provider: May 29, 2020 Time Seen by Provider: 00:30 Patient was sitting up in bed eating his breakfast. He stated he just made up his mind he was going to eat well today. Objective Patient consumed 80% of his breakfast with minimal assist. Patient also completed conversation in a pleasant manner without cues. Assessment Assessment Current Status: Good Progress Treatment Plan Continue Plan of Care Speech Short Term Goals Short Term Goals Short Term Goals 1) Patient will complete memory tasks related to his daily needs at 80% or greater with minimal cues. 2) Patient will complete problem solving tasks related to his daily needs at 80% or greater with minimal cues. 3) Patient will complete safety awareness tasks related to his daily needs at 80% or greater with minimal cues. Speech Aesthetics Instructor Goals Senior Care Goals Patient will improve cognitive-communication skills in order to improve safety and require minimal assist. Speech-Plan Patient/Family Goals Patient/Family Goals: Patient continues to plan on returning to his home where he lives alone with family living near by. Treatment Plan Speech Therapy Treatment Plan: Continue Plan of Care Treatment Duration: Jun 06, 2020 Frequency: 4 times per week (Patient will receive skilled ST 4-5x per week) Estimated Hrs Per Day: .5 hour per day Rehab Potential: Poor Barriers to Learning: Patient's recent health status, decline in function, confusion Pt/Family Agrees to Plan: Yes Safety Risks/Education Teaching Recipient: Patient Teaching Methods: Demonstration, Discussion Response to Teaching: Verbalize Understanding, Return Demonstration Education Topics Provided: Safety within his room and upon discharge Time Speech Therapy Time In: 08:30 Speech Therapy Time Out: 09:00 Total Billed Time: 30 Billed Treatment Time 1, OLENA Brothers May 29, 2020 13:38
[2020-05-29 16:33] VITALS: BP 103/59
[2020-05-29] MEDS: MELATONIN 3 MG TABLET PO SCH (21:40)
[2020-05-30] MEDS: guaiFENesin/CODEINE (ROBITUSSIN AC) 10ML UDC PO SCH ×6 (01:49→20:33)
[2020-05-30] MEDS: CATHETER FLUSH 10 ML SYR IV SCH ×3 (05:46→20:34)
[2020-05-30] MEDS: inSUlin ASPART (NovoLOG) 1 UNIT/0.01 ML (CHARGE PER UNIT) SC SCH ×4 (05:47→20:06)
[2020-05-30 05:59] VITALS: BP 115/55
[2020-05-30] MEDS: ASPIRIN E.C. 81 MG (ECOTRIN) TAB PO SCH (08:21)
[2020-05-30] MEDS: TICAGRELOR 90 MG TABLET (BRILINTA) PO SCH ×2 (08:22→20:32)
[2020-05-30] MEDS: DOCUSATE SODIUM 100 MG (COLACE) CAP PO SCH ×2 (08:22→20:33)
[2020-05-30] MEDS: SENNA W/DOCUSATE (SENOKOT S) TABLET PO SCH ×2 (08:22→20:32)
[2020-05-30] MEDS: CARVEDILOL 3.125 MG (COREG) TABLET PO SCH ×2 (08:22→18:44)
[2020-05-30] MEDS: BENZONATATE 100 MG (TESSALON) CAPSULE PO SCH ×3 (08:22→20:31)
[2020-05-30] MEDS: VITAMIN D2 1.25 MG (50,000 UNITS) CAP PO SCH (08:22)
[2020-05-30] MEDS: polyethylene glycoL POWDER 17 GM (MIRALAX) PACK PO SCH ×2 (08:23→20:30)
--- NOTE | 2020-05-30 09:09 | Speech Therapy Daily Note ---
Speech Daily Progress Note Subjective Date Seen by Provider: May 30, 2020 Time Seen by Provider: 00:30 Patient was resting in his bed after consuming 80% of his breakfast. Patient states he wanted to be positive today but for some reason he was being negative. Objective Patient participated well with q/a related to his needs upon discharge and his plans to be active with 90% given minimal cues. Patient does require enco uragement due to being negative about his future. Assessment Assessment Current Status: Good Progress Treatment Plan Continue Plan of Care Speech Short Term Goals Short Term Goals Short Term Goals 1) Patient will complete memory tasks related to his daily needs at 80% or greater with minimal cues. 2) Patient will complete problem solving tasks related to his daily needs at 80% or greater with minimal cues. 3) Patient will complete safety awareness tasks related to his daily needs at 80% or greater with minimal cues. Speech Rental Sales Agent Goals Rental Sales Agent Goals Patient will improve cognitive-communication skills in order to improve safety and require minimal assist. Speech-Plan Patient/Family Goals Patient/Family Goals: Patient has family training today with therapy to assess his needs upon discharge and what his current level of function is. Treatment Plan Speech Therapy Treatment Plan: Continue Plan of Care Treatment Duration: Jun 06, 2020 Frequency: 4 times per week (Patient will receive skilled ST 4-5x per week) Estimated Hrs Per Day: .5 hour per day Rehab Potential: Poor Barriers to Learning: Patient's confusion, decreased motivation, age, medical status Pt/Family Agrees to Plan: Yes Safety Risks/Education Teaching Recipient: Patient Teaching Methods: Demonstration, Discussion Response to Teaching: Verbalize Understanding, Return Demonstration, R einforcement Needed Education Topics Provided: Continued need for safety awareness, continued need for activity/participation Time Speech Therapy Time In: 08:30 Speech Therapy Time Out: 09:00 Total Billed Time: 30 Billed Treatment Time 1, OLENA Brothers May 30, 2020 09:09
--- NOTE | 2020-05-30 10:01 | Podiatry Progress Note ---
Standard Progress Note Progress Notes/Assess & Plan Date Seen by a Provider: May 30, 2020 Time Seen by a Provider: 10:00 Progress/Assessment & Plan Consultation dictated. Foot care given/ Final Diagnosis Diabetic Neuropathy, Onychocryptosis R1, Onychomycosis JOSIAS GONZALEZ DPDanny May 30, 2020 10:01
--- NOTE | 2020-05-30 10:11 | PM&R Progress Note ---
Subjective HPI/CC On Admission Date Seen by Provider: May 30, 2020 Time Seen by Provider: 09:45 Subjective/Events-last exam 05/30/20: Patient seems to be doing better Less coughing More clear thought process 05/27 last BM 05/29/20: Cough improved Status improved Better mood 05/28/20: Pt coughing a bit still Will need 24/ supervision so that may require half-way placement Family updated Antibiotics is now completed 05/27/20: Niece is at the bedside Overall doing very well Confusion occurs at times Plenty of family members taking care of him at home so that should be a good and safe discharge 05/26/20: Pt confused Doesnt really want me to see him today Its a struggle per Dr. Isaac also Hgb 10.4 Refusing to eat most of the time 05/25/20: Much improved Good family meeting Family at bedside RLL PNA crackles noted Cough improved with meds Decreased confusion Appetite better BM++ 05/24/20: Patient confused Sometimes willing to participate Slow processing per PCP after I conferred with her indepth about his hx Incontinent of urine noted Levaquin maintained for RLL PNA CXR reviewed Review of Systems General: Fatigue Pulmonary: Cough Neurological: Weakness, Confusion Objective Exam Vital Signs Vital Signs Date Time Temp Pulse Resp B/P (MAP) Pulse Ox O2 Delivery O2 Flow Rate FiO2 05/31/20 05:31 36.4 81 18 112/58 (76) 96 Room Air Capillary Refill : Less Than 3 Seconds General Appearance: No Apparent Distress, WD/WN, Anxious HEENT: PERRL/EOMI Neck: Full Range of Motion, Normal Inspection, Non Tender, Supple Respiratory: Chest Non Tender, No Accessory Muscle Use, No Respiratory Distress, Crackles (CRACKLES IN RIGHT BASE) Cardiovascular: Regular Rate, Rhythm, No Edema Gastrointestinal: Normal Bowel Sounds, No Organomegaly, No Pulsatile Mass, Non Tender, Soft Rectal: Deferred Back: Normal Inspection, No CVA Tenderness, No Vertebral Tenderness Extremity: Normal Capillary Refill, Non Tender, No Calf Tenderness, No Pedal Edema Neurologic/Psychiatric: Alert, Oriented x3, No Motor/Sensory Deficits, Normal Mood/Affect, public safety director II-XII Norm as Tested Skin: Normal Color, Warm/Dry Lymphatic: No Adenopathy Results/Procedures Lab Patient resulted labs reviewed. FIM Transfers Therapy Code Descriptions/Definitions Functional [place] Measure: 0=Not Assessed/NA 4=Minimal Assistance 1=Total Assistance 5=Supervision or Setup 2=Maximal Assistance 6=Modified [place] 3=Moderate Assistance 7=Complete IndependenceSCALE: Activities may be completed with or without assistive devices. 5-Lzbybwnmyy-rjdgzqx completes the activity by him/herself with no assistance from a helper. 5-Set-up or Clean-up Assistance-helper sets up or cleans up; patient completes activity. [place] assists only prior to or following the activity. 4-Supervision or Touching Assistance-helper provides verbal cues and/or touching/steadying and/or contact guard assistance as patient completes activity. Assistance may be provided throughout the activity or intermittently. 3-Partial/Moderate Assistance-helper does LESS THAN HALF the effort. [place] lifts, holds or supports trunk or limbs, but provides less than half the effort. 2-Substantial/Maximal Assistance-helper does MORE THAN HALF the effort. [place] lifts or holds trunk or limbs and provides more than half the effort. 0-Fnwrfemdh-laaomu does ALL the effort. Patient does none of the effort to complete the activity. Or, the assistance of 2 or more helpers is required for the patient to complete the activity. If activity was not attempted, code reason: 7-Patient Refused. 9-Not Applicable-not attempted and the patient did not perform the activity before the current illness, exacerbation or injury. 10-Not Attempted due to Environmental Limitations-(lack of equipment, weather restraints, etc.). 88-Not Attempted due to Medical Conditions or Safety Concerns. Roll Left to Right (QC): 6 Sit to Lying (QC): 4 Sit to Stand (QC): 4 Chair/Sxp-ru-Gdskm Xfer(QC): 4 Car Transfer (QC): 4 Gait Training Does the Patient Walk?: Yes Distance: 150'x2 Walk 10 feet (QC): 4 Walk 50 ft with 2 Turns(QC): 4 Walk 150 ft (QC): 4 Walking 10ft/uneven surface-QC: 7 Gait Persons Needed: 1 Gait Assistive Device: FWW Wheelchair Training Does the Pt Use a Wheelchair?: Yes Wheel 50 ft with 2 turns (QC): 3 Wheel 150 ft (QC): 7 Type of Wheelchair: Manual (3) Stair Training Stair Training: Handrails/: 2 handrails #of Steps: 4 1 Step (curb) (QC): 7 4 Steps (QC): 3 12 Steps (QC): 88 Stairs: Pattern: Reciprocal Balance Picking up an Object (QC): 7 ADL-Treatment Eating (QC): 6 Oral Hygiene (QC): 6 Bathing Location: L Arm, R Arm, Chest Shower/Bathe Self (QC): 4 Upper Body Dressing (QC): 3 Lower Body Dressing (QC): 2 On/Off Footwear (QC): 2 Toileting Hygiene (QC): 3 Toilet Transfer (QC): 4 Assessment/Plan Assessment and Plan Assess & Plan/Chief Complaint Assessment: Critical illness myopathy s/p cardiogenic shock CKD Stage 4 HTN DM Confusion Cebrovascular disease on MRI Fall risk Plan: IRF protocol Monitor closely Monitor creat Cardiology consultation 05/24/20: Fall risk Incontinence Monitor confusion PCP meeting tomorrow with family 05/25/20: Improved status today Improved strength Less confusion 05/26/20: Monitor BP Fall risk 05/27/20: Confusion noted Appears there are plenty of family members able to check in on him 05/28/20: Needs NH or family with 25/10 supervision 05/29/20: Monitor BP Cough improved 05/30/20: SW with family today In-depth discussion regarding home dispo (1) Pneumonia Status: Acute Assessment & Plan: PT ON LEVAQUIN 500MG Q48H, MONITOR CHEST XRAY ON 05/27/2020 Qualifiers: Laterality: right Lung location: lower lobe of lung (2) Acute on chronic kidney failure Assessment & Plan: CONTINUE TO AVOID NEPHROTOXIC AGENTS WILL SEE DR. PORTILLO OUTPATIENT IN FOLLOW UP. Qualifiers: Acute renal failure type: unspecified Chronic kidney disease stage: stage 4 (severe) Qualified Codes: N17.9 - Acute kidney failure, unspecified; N18.4 - Chronic kidney disease, stage 4 (severe) (3) Acute and subacute ischemic heart disease Assessment & Plan: PT HAS EJECTION FRACTION OF 15% ON EVALUATION AT [place]. PT CONTINUES TO NEED THERAPY FOR STRENGTHENING, HE HAS REQUESTED THAT HE GOES TO SEE DR. ALDANA IN FOLLOW UP. (4) DMII (diabetes mellitus, type 2) Assessment & Plan: PT ON LEVEMIR 5 UNITS BID AND ENCOURAGE HIM TO HAVE A SNACK OF AT LEAST 15 GRAMS OF PROTEIN AT HS. BLOOD GLUCOSE HIGHER THIS MORNING, MONITOR BLOOD GLUCOSE FINGER STICKS OVER THE NEXT FEW DAYS TO SEE IF WE NEED TO INCREASE LEVEMIR BACK UP TO 6 UNITS BID. Qualifiers: Diabetes mellitus prison insulin use: with prison use Diabetes mellitus complication status: with kidney complications Diabetes mellitus complication detail: with chronic kidney disease Chronic kidney disease stage: stage 4 (severe) Qualified Codes: E11.22 - Type 2 diabetes mellitus with diabetic chronic kidney disease; N18.4 - Chronic kidney disease, stage 4 (severe); Z79.4 - terminal manager (current) use of insulin (5) Cancer of prostate Status: Chronic Assessment & Plan: CONTINUE WITH SUPPORTIVE CARE (6) CKD (chronic kidney disease) stage 4, GFR 15-29 ml/min (7) Cerebrovascular disease Assessment & Plan: STATUS POST EMBOLIC STROKE - PT NEEDS THERAPY FOR STRENGTHENING AND WILL NEED OUTPATIENT THERAPY ON DISCHARGE. (8) S/P coronary artery stent placement (9) BPH (benign prostatic hyperplasia) Qualifiers: Lower urinary tract symptom presence: symptoms present Lower urinary tract symptom detail: urinary frequency Qualified Codes: N40.1 - Benign prostatic hyperplasia with lower urinary tract symptoms; R35.0 - Frequency of micturition (10) Cardiomyopathy Qualifiers: Cardiomyopathy type: ischemic Qualified Codes: I25.5 - Ischemic cardiomyopathy GHADA SANDOVAL DO May 30, 2020 10:11
--- NOTE | 2020-05-30 11:00 | Physical Therapy Daily Note ---
PT Daily Note-Current Subjective Patient in bed pre tx, agrees to PT with encouragement, family is here to observe therapy, will be co-treating with OT due to poor patient mobility, strength, endurance, coordinate UE and LE during activity, poor safety awareness, reduce risk of falls. Appearance Patient sitting EOB post tx, will continue with OT for a bit for UE exercises. Mental Status Patient Orientation: Person, Confused, Place, Situation Transfers SCALE: Activities may be completed with or without assistive devices. 9-Jsesssnmzf-unshnqo completes the activity by him/herself with no assistance from a helper. 5-Set-up or Clean-up Assistance-helper sets up or cleans up; patient completes activity. [place] assists only prior to or following the activity. 4-Supervision or Touching Assistance-helper provides verbal cues and/or touching/steadying and/or contact guard assistance as patient completes activity. Assistance may be provided throughout the activity or intermittently. 3-Partial/Moderate Assistance-helper does LESS THAN HALF the effort. [place] lifts, holds or supports trunk or limbs, but provides less than half the effort. 2-Substantial/Maximal Assistance-helper does MORE THAN HALF the effort. [place] lifts or holds trunk or limbs and provides more than half the effort. 2-Qkzfqhjol-adxgen does ALL the effort. Patient does none of the effort to complete the activity. Or, the assistance of 2 or more helpers is required for the patient to complete the activity. If activity was not attempted, code reason: 7-Patient Refused. 9-Not Applicable-not attempted and the patient did not perform the activity before the current illness, exacerbation or injury. 10-Not Attempted due to Environmental Limitations-(lack of equipment, weather restraints, etc.). 88-Not Attempted due to Medical Conditions or Safety Concerns. Roll Left & Right (QC): 6 Lying to Sitting/Side of Bed(Q: 6 Sit to Stand (QC): 4 Chair/Ijp-yn-Urrrm Xfer(QC): 4 After sitting EOB patient dresses and cleans up, needs CGA and cues for positioning and safety during dressing and cleaning (standing). Gait Training Distance: 150'x2 Walk 10 feet (QC): 4 Walk 50 ft with 2 Turns(QC): 4 Walk 150 ft (QC): 4 Gait Assistive Device: FWW WC follow, slow but steady ambulation, needs frequent cues for direction and to keep walker closer to him Exercises standing balance and endurance activity while performing UE fine motor and strengthening Treatments PT performed bed mobility and transfers, standing and safety during dressing and cleaning, ambulation, standing activity, OT performed UE activity, dressing, cleaning, UE positioning and safety during activity Assessment Current Status: Fair Progress slightly improved motivation but still needs a lot of encouragement PT Short Term Goals Short Term Goals Time Frame: May 30, 2020 Roll Left & Right: 4 Sit to lyin Lying to sitting on side of be: 4 Sit to stand: 4 Chair/ouz-dk-zpaxc transfer: 4 Toilet transfer: 4 Walk 10 feet: 4 PT Nursing Home Goals Nursing Home Goals PT Nursing Home Goals Time Frame: Jun 13, 2020 Roll Left & Right (QC): 4 (SBA) Sit to Lying (QC): 4 (SBA) Lying-Sitting on Side/Bed(QC): 4 (SBA) Sit to Stand (QC): 4 (SBA) Chair/Sib-or-Vyuky Xfer(QC): 4 (SBA) Toilet Transfer (QC): 4 (SBA) Car Transfer (QC): 4 (SBA) Does the Patient Walk: Yes Walk 10 feet (QC): 4 (SBA) Walk 50ft with 2 Turns (QC): 4 (SBA) Walk 150 ft (QC): 4 (SBA) Walking 10ft on Uneven Surface: 4 (SBA) 1 Step (curb) (QC): 4 (CGA) 4 Steps (QC): 4 (CGA) 12 Steps (QC): 4 (CGA) Picking up an Object (QC): 4 (CGA) Wheel 50 feet with 2 turns (QC: 6 Wheel 150 feet: 6 PT Plan Problem List Problem List: Activity Tolerance, Functional Strength, Safety, Balance, Gait, Transfer, Bed Mobility, ROM Treatment/Plan Treatment Plan: Continue Plan of Care Treatment Plan: Bed Mobility, Education, Functional Activity Yuri, Functional Strength, Group Therapy, Gait, Safety, Therapeutic Exercise, Transfers Treatment Duration: Jun 13, 2020 Frequency: At least 5 of 7 days/Wk (IRF) Estimated Hrs Per Day: 1.5 hours per day Patient and/or Family Agrees t: Yes Safety Risks/Education Patient Education: Gait Training, Transfer Techniques, Correct Positioning, Safety Issues Teaching Recipient: Patient Teaching Methods: Demonstration, Discussion Response to Teaching: Reinforcement Needed Time/GCodes Time In: 1000 Time Out: 1100 Total Billed Treatment Time: 60 Total Billed Treatment 1 visit GT 30' EX 15' FA 15' co-treated for 60' FRANK YATES PT May 30, 2020 10:59
--- NOTE | 2020-05-30 11:17 | Occupational Ther Daily Note ---
OT Current Status-Daily Note Subjective Pt alert, lying in bed. Nrsg reported that pt was incontinent of urine and already had lower body bathing completed. Polish Compounder finishing up with pt. Family training completed today. Mental Status/Objective Patient Orientation: Person, Place, Time, Situation Attachments: IV ADL-Treatment Co-treat with PT ([id number]), skilled instruction and care required by 2 clinicians due to fall risk and self-limiting behavior. PT focusing on transfers, ambulation and stairs while OT focusing on ADLs, B UE placment during functional tasks. Supine <--> EOB, independent with increased time, HOB elevated and bed rails. Pt did complete upper bathing with back pack, stated that is enough. Pt unable to initially sequence donning shirt then after as sistance able to finish donning shirt. Pt able to thread R LE into pant leg then unable to problem solve how to thread L LE. CGA in standing while pt hiked pants over hips. Max A to don/doff socks. Standing at sink, pt required verbal cues to initiate. CGA in standing, pt leaning back slightly throwing pt off balance. Therapy Code Descriptions/Definitions Functional [place] Measure: 0=Not Assessed/NA 4=Minimal Assistance 1=Total Assistance 5=Supervision or Setup 2=Maximal Assistance 6=Modified [place] 3=Moderate Assistance 7=Complete IndependenceSCALE: Activities may be completed with or without assistive devices. 1-Lrtzbfiueo-qnqoxgi completes the activity by him/herself with no assistance from a helper. 5-Set-up or Clean-up Assistance-helper sets up or cleans up; patient completes activity. [place] assists only prior to or following the activity. 4-Supervision or Touching Assistance-helper provides verbal cues and/or touching/steadying and/or contact guard assistance as patient completes activity. Assistance may be provided throughout the activity or intermittently. 3-Partial/Moderate Assistance-helper does LESS THAN HALF the effort. [place] lifts, holds or supports trunk or limbs, but provides less than half the effort. 2-Substantial/Maximal Assistance-helper does MORE THAN HALF the effort. [place] lifts or holds trunk or limbs and provides more than half the effort. 7-Jyerzynzs-xrjxnf does ALL the effort. Patient does none of the effort to complete the activity. Or, the assistance of 2 or more helpers is required for the patient to complete the activity. If activity was not attempted, code reason: 7-Patient Refused. 9-Not Applicable-not attempted and the patient did not perform the activity before the current illness, exacerbation or injury. 10-Not Attempted due to Environmental Limitations-(lack of equipment, weather restraints, etc.). 88-Not Attempted due to Medical Conditions or Safety Concerns. Oral Hygiene (QC): 4 Upper Body Dressing (QC): 3 Lower Body Dressing (QC): 2 On/Off Footwear: 2 Other Treatment See PT notes for ambulation progress. Pt then ambulated to therapy gym. Pt completed dynamic standing balance activity working on activity tolerance, B UE/LE gross motor, B UE fine motor skills and problem solving/sequencing skills. Pt took multiple recovery breaks while completing standing activity and was only able to complete 10 out of 20 taking off nut/bolts. Verbal cues for hand placement, L hand on one bolt and R hand on another nut. Verbal cues to remember to take off instead of put on. Pt then ambulated back to room. Using bed rails, pt able to go from supine to EOB by self. Pt then completed 5 light resistance theraband exercises with skilled instructions and physical cues to complete with correct technique. After therapy, pt lying in bed with call light /phone in reach. All needs met in room. Education OT Patient Education: Instructions to caregiver, Modified ADL techniques Teaching Recipient: Patient, Family Teaching Methods: Demonstration Response to Teaching: Verbalize Understanding, Return Demonstration, Reinforcement Needed OT Short Term Goals Short Term Goals Eatin Oral hygiene: 5 Toileting hygiene: 3 Shower/bathe self: 3 Upper body dressin Lower body dressin Putting on/taking off footwear: 3 OT Paralegal Secretary Goals [facility]sp Goals Time Frame: Jun 06, 2020 Eating (QC): 6 Oral Hygiene (QC): 6 Toileting Hygiene (QC): 6 Shower/Bathe Self (QC): 4 Upper Body Dressing (QC): 6 Lower Body Dressing (QC): 4 On/Off Footwear (QC): 4 Additional Goals: 1-Demonstrate ADL Tasks, 2-Verbalize Understanding, 3-ImproveStrength/Yuri 1=Demonstrate adherence to instructed precautions during ADL tasks. 2=Patient will verbalize/demonstrate understanding of assistive devices/modifications for ADL. 3=Patient will improve strength/tolerance for activity to enable patient to perform ADL's. OT Education/Plan Problem List/Assessment Assessment: Decreased Activ Tolerance, Decreased Safety Aware, Decreased UE Strength, Impaired Cognition, Impaired Coordination, Impaired Funct Balance, Impaired Self-Care Skills Discharge Recommendations Plan/Recommendations: Continue POC Treatment Plan/Plan of Care Patient would benefit from OT for education, treatment and training to promote independence in ADL's, mobility, safety and/or upper extremity function for ADL's. Plan of Care: ADL Retraining, Caregiver Training, Concurrent Therapy, Functional Mobility, Group Exercise/Act as Ind, UE Funct Exercise/Act, UE Neuromus Re-Ed/Coord, W/C Management Training Treatment Duration: Jun 06, 2020 Frequency: At least 5 of 7 days/Wk (IRF) Estimated Hrs Per Day: 1.5 hours per day Agreement: Yes Rehab Potential: Poor Time/GCodes Start Time: 10:00 Stop Time: 11:15 Total Time Billed (hr/min): 75 Billed Treatment Time 1 visit-ADL 3 (45 min) FA 1 (20 min) EX 1 (10 min) co-treat with PT [id number], individual [id number] MAKENZIE COMBS May 30, 2020 11:17
--- NOTE | 2020-05-30 12:19 | CONSULTATION REPORT ---
DATE OF SERVICE: 05/30/2020 REASON FOR CONSULTATION: Foot care. HISTORY OF PRESENT ILLNESS: This 80-year-old was admitted for rehabilitation after treatment at [facility] for ischemic cardiomyopathy with stent placement of the LAD. He also is having some confusing and he is working with physical therapy for ambulation. The patient is diabetic and is unable to reach for and care for his feet. He is complaining of a painful right great toenail, especially. He relates a remote history of trauma to the nail and it started to grow in an unusual angle. Right now, it is painful with sheets and socks rubbing on it. PAST MEDICAL HISTORY: Includes chronic kidney disease stage IV, coronary artery disease, confusion, type 2 diabetes, cerebrovascular disease, coronary artery stent placement, benign prostatic hyperplasia, myopathy, pneumonia, cancer prostate, septic embolism. CURRENT MEDICATIONS: Listed on the patient's chart. ALLERGIES: He has no known drug allergies. SOCIAL HISTORY: The patient denies alcohol use. He denies tobacco use. PHYSICAL EXAMINATION: EXTREMITIES: On examination, the patient has a 1/4 dorsalis pedis pulse on the right and 0/4 posterior tibial pulse on the right. The patient has 0/4 dorsalis pedis pulse on the left and 1/4 posterior tibial pulse on the left. Pitting edema is noted to bilateral foot and ankle. NEUROLOGIC: The patient has intact protective sensation with 10 gram monofilament wire examination bilaterally. The patient has diminished vibratory sensation to the forefoot bilaterally. DERMATOLOGIC: The patient has thick yellow dystrophic toenails with subungual debris R1, L1, 2 and 5. The right great toenail is extremely thick and brittle, dystrophic and has incurvated medial border without erythema, edema or gross signs of bacterial infection at this time. There is no active exudate noted. MUSCULOSKELETAL FINDINGS: He has 4/5 muscle strength to the 4 major quadrants of the foot bilaterally. ASSESSMENT: Diabetic neuropathy, atherosclerosis, edema, onychocryptosis R1 and onychomycosis bilaterally. PLAN: Various options were discussed with the patient today. His toenails were debrided R1, L1, 2, 5 manually mechanically. Betadine applied. The offending nail border to the distal medial aspect of the right hallux toenail was reduced as well without the aid of anesthesia. The patient tolerated this well and received a considerable amount of relief. Betadine was applied to the digits. We discussed diabetic foot care in general. He is welcome to follow up in the office upon discharge. Job ID: [id number] DocumentID: [id number] Dictated Date: 05/30/2020 09:59:58 Control Tower Radio Operator Date: 05/30/2020 12:19:23 Dictated By: JOSIAS GONZALEZ DPM
--- NOTE | 2020-05-30 14:29 | Physical Therapy Daily Note ---
PT Daily Note-Current Subjective Patient in bed pre tx, agrees to PT, has no complaints of pain at rest. Appearance Patient in bed post tx with nurse call, phone, tray, all needs met. Bed alarm on. Mental Status Patient Orientation: Person, Confused, Place, Situation Transfers SCALE: Activities may be completed with or without assistive devices. 3-Xjflihknaj-mnmwznd completes the activity by him/herself with no assistance from a helper. 5-Set-up or Clean-up Assistance-helper sets up or cleans up; patient completes activity. [place] assists only prior to or following the activity. 4-Supervision or Touching Assistance-helper provides verbal cues and/or touching/steadying and/or contact guard assistance as patient completes activity. Assistance may be provided throughout the activity or intermittently. 3-Partial/Moderate Assistance-helper does LESS THAN HALF the effort. [place] l ifts, holds or supports trunk or limbs, but provides less than half the effort. 2-Substantial/Maximal Assistance-helper does MORE THAN HALF the effort. [place] lifts or holds trunk or limbs and provides more than half the effort. 5-Shvrubxfo-htiuen does ALL the effort. Patient does none of the effort to complete the activity. Or, the assistance of 2 or more helpers is required for t he patient to complete the activity. If activity was not attempted, code reason: 7-Patient Refused. 9-Not Applicable-not attempted and the patient did not perform the activity before the current illness, exacerbation or injury. 10-Not Attempted due to Environmental Limitations-(lack of equipment, weather restraints, etc.). 88-Not Attempted due to Medical Conditions or Safety Concerns. Exercises Supine Ex: Ankle pumps, Quad Set, Glut sets, Heel Slides, Short Arc Quads, Straight leg raise, Hip abd/add Supine Reps: 20 Treatments LE exercise Assessment Current Status: Fair Progress better participation PT Short Term Goals Short Term Goals Time Frame: May 30, 2020 Roll Left & Right: 4 Sit to lyin Lying to sitting on side of be: 4 Sit to stand: 4 Chair/yez-kq-jnmyn transfer: 4 Toilet transfer: 4 Walk 10 feet: 4 PT Mcc Goals Mcc Goals PT Er Nurse Goals Time Frame: Jun 13, 2020 Roll Left & Right (QC): 4 (SBA) Sit to Lying (QC): 4 (SBA) Lying-Sitting on Side/Bed(QC): 4 (SBA) Sit to Stand (QC): 4 (SBA) Chair/Wqa-xw-Zmhcl Xfer(QC): 4 (SBA) Toilet Transfer (QC): 4 (SBA) Car Transfer (QC): 4 (SBA) Does the Patient Walk: Yes Walk 10 feet (QC): 4 (SBA) Walk 50ft with 2 Turns (QC): 4 (SBA) Walk 150 ft (QC): 4 (SBA) Walking 10ft on Uneven Surface: 4 (SBA) 1 Step (curb) (QC): 4 (CGA) 4 Steps (QC): 4 (CGA) 12 Steps (QC): 4 (CGA) Picking up an Object (QC): 4 (CGA) Wheel 50 feet with 2 turns (QC: 6 Wheel 150 feet: 6 PT Plan Problem List Problem List: Activity Tolerance, Functional Strength, Safety, Balance, Gait, Transfer, Bed Mobility, ROM Treatment/Plan Treatment Plan: Continue Plan of Care Treatment Plan: Bed Mobility, Education, Functional Activity Yuri, Functional Strength, Group Therapy, Gait, Safety, Therapeutic Exercise, Transfers Treatment Duration: Jun 13, 2020 Frequency: At least 5 of 7 days/Wk (IRF) Estimated Hrs Per Day: 1.5 hours per day Patient and/or Family Agrees t: Yes Safety Risks/Education Patient Education: Correct Positioning, Safety Issues Teaching Recipient: Patient Teaching Methods: Demonstration, Discussion Response to Teaching: Reinforcement Needed Time/GCodes Time In: 1400 Time Out: 1415 Total Billed Treatment Time: 15 Total Billed Treatment 1 visit EX Roly' FRANK YATES PT May 30, 2020 14:29
[2020-05-30 17:11] VITALS: BP 102/59
[2020-05-30] MEDS: MELATONIN 3 MG TABLET PO SCH (20:32)
[2020-05-31] MEDS: guaiFENesin/CODEINE (ROBITUSSIN AC) 10ML UDC PO SCH ×6 (00:54→21:40)
[2020-05-31] MEDS: inSUlin ASPART (NovoLOG) 1 UNIT/0.01 ML (CHARGE PER UNIT) SC SCH ×4 (05:26→20:40)
[2020-05-31 05:31] VITALS: BP 112/58
[2020-05-31] MEDS: CATHETER FLUSH 10 ML SYR IV SCH ×3 (06:36→21:30)
--- NOTE | 2020-05-31 07:28 | PM&R Progress Note ---
Subjective HPI/CC On Admission Date Seen by Provider: May 31, 2020 Time Seen by Provider: 12:15 Subjective/Events-last exam 05/31/20: Patient in better mood BM+ Eating well 05/30/20: Patient seems to be doing better Less coughing More clear thought process 05/27 last BM 05/29/20: Cough improved Status improved Better mood 05/28/20: Pt coughing a bit still Will need 25/10 supervision so that may require fdc placement Family updated Antibiotics is now completed 05/27/20: Niece is at the bedside Overall doing very well Confusion occurs at times Plenty of family members taking care of him at home so that should be a good and safe discharge 05/26/20: Pt confused Doesnt really want me to see him today Its a struggle per Dr. Isaac also Hgb 10.4 Refusing to eat most of the time 05/25/20: Much improved Good family meeting Family at bedside RLL PNA crackles noted Cough improved with meds Decreased confusion Appetite better BM++ 05/24/20: Patient confused Sometimes willing to participate Slow processing per PCP after I conferred with her indepth about his hx Incontinent of urine noted Levaquin maintained for RLL PNA CXR reviewed Review of Systems General: Fatigue, Malaise Objective Exam Vital Signs Vital Signs Date Time Temp Pulse Resp B/P (MAP) Pulse Ox O2 Delivery O2 Flow Rate FiO2 05/31/20 16:00 36.7 80 20 104/59 (74) 97 Room Air Capillary Refill : Less Than 3 Seconds General Appearance: No Apparent Distress, WD/WN, Anxious HEENT: PERRL/EOMI Neck: Full Range of Motion, Normal Inspection, Non Tender, Supple Respiratory: Chest Non Tender, No Accessory Muscle Use, No Respiratory Distress, Crackles (CRACKLES IN RIGHT BASE) Cardiovascular: Regular Rate, Rhythm, No Edema Gastrointestinal: Normal Bowel Sounds, No Organomegaly, No Pulsatile Mass, Non Tender, Soft Rectal: Deferred Back: Normal Inspection, No CVA Tenderness, No Vertebral Tenderness Extremity: Normal Capillary Refill, Non Tender, No Calf Tenderness, No Pedal Edema Neurologic/Psychiatric: Alert, Oriented x3, No Motor/Sensory Deficits, Normal Mood/Affect, platform builder II-XII Norm as Tested Skin: Normal Color, Warm/Dry Lymphatic: No Adenopathy Results/Procedures Lab Patient resulted labs reviewed. FIM Transfers Therapy Code Descriptions/Definitions Functional [place] Measure: 0=Not Assessed/NA 4=Minimal Assistance 1=Total Assistance 5=Supervision or Setup 2=Maximal Assistance 6=Modified [place] 3=Moderate Assistance 7=Complete IndependenceSCALE: Activities may be completed with or without assistive devices. 2-Bzydsrnhke-oacegtk completes the activity by him/herself with no assistance from a helper. 5-Set-up or Clean-up Assistance-helper sets up or cleans up; patient completes activity. [place] assists only prior to or following the activity. 4-Supervision or Touching Assistance-helper provides verbal cues and/or touching/steadying and/or contact guard assistance as patient completes activity. Assistance may be provided throughout the activity or intermittently. 3-Partial/Moderate Assistance-helper does LESS THAN HALF the effort. [place] lifts, holds or supports trunk or limbs, but provides less than half the effort. 2-Substantial/Maximal Assistance-helper does MORE THAN HALF the effort. [place] lifts or holds trunk or limbs and provides more than half the effort. 8-Xeqghqeqn-zijpbd does ALL the effort. Patient does none of the effort to complete the activity. Or, the assistance of 2 or more helpers is required for the patient to complete the activity. If activity was not attempted, code reason: 7-Patient Refused. 9-Not Applicable-not attempted and the patient did not perform the activity before the current illness, exacerbation or injury. 10-Not Attempted due to Environmental Limitations-(lack of equipment, weather restraints, etc.). 88-Not Attempted due to Medical Conditions or Safety Concerns. Roll Left to Right (QC): 6 Sit to Lying (QC): 4 Sit to Stand (QC): 4 Chair/Wgm-zc-Xwffc Xfer(QC): 4 Car Transfer (QC): 4 Gait Training Does the Patient Walk?: Yes Distance: 150'x2 Walk 10 feet (QC): 4 Walk 50 ft with 2 Turns(QC): 4 Walk 150 ft (QC): 4 Walking 10ft/uneven surface-QC: 7 Gait Persons Needed: 1 Gait Assistive Device: FWW Wheelchair Training Does the Pt Use a Wheelchair?: Yes Wheel 50 ft with 2 turns (QC): 3 Wheel 150 ft (QC): 7 Type of Wheelchair: Manual (3) Stair Training Stair Training: Handrails/: 2 handrails #of Steps: 4 1 Step (curb) (QC): 7 4 Steps (QC): 3 12 Steps (QC): 88 Stairs: Pattern: Reciprocal Balance Picking up an Object (QC): 7 ADL-Treatment Eating (QC): 6 Oral Hygiene (QC): 4 Bathing Location: L Arm, R Arm, Chest Shower/Bathe Self (QC): 4 Upper Body Dressing (QC): 3 Lower Body Dressing (QC): 2 On/Off Footwear (QC): 2 Toileting Hygiene (QC): 3 Toilet Transfer (QC): 4 Assessment/Plan Assessment and Plan Assess & Plan/Chief Complaint Assessment: Critical illness myopathy s/p cardiogenic shock CKD Stage 4 HTN DM Confusion Cebrovascular disease on MRI Fall risk Plan: IRF protocol Monitor closely Monitor creat Cardiology consultation 05/24/20: Fall risk Incontinence Monitor confusion PCP meeting tomorrow with family 05/25/20: Improved status today Improved strength Less confusion 05/26/20: Monitor BP Fall risk 05/27/20: Confusion noted Appears there are plenty of family members able to check in on him 05/28/20: Needs NH or family with 25/10 supervision 05/29/20: Monitor BP Cough improved 05/30/20: SW with family today In-depth discussion regarding home dispo 05/31/20: Monitor closely Fall risk (1) Pneumonia Status: Acute Assessment & Plan: PT ON LEVAQUIN 500MG Q48H, MONITOR CHEST XRAY ON 05/27/2020 Qualifiers: Laterality: right Lung location: lower lobe of lung (2) Acute on chronic kidney failure Assessment & Plan: CONTINUE TO AVOID NEPHROTOXIC AGENTS WILL SEE DR. PORTILLO OUTPATIENT IN FOLLOW UP. Qualifiers: Acute renal failure type: unspecified Chronic kidney disease stage: stage 4 (severe) Qualified Codes: N17.9 - Acute kidney failure, unspecified; N18.4 - Chronic kidney disease, stage 4 (severe) (3) Acute and subacute ischemic heart disease Assessment & Plan: PT HAS EJECTION FRACTION OF 15% ON EVALUATION AT [place] [facility]. PT CONTINUES TO NEED THERAPY FOR STRENGTHENING, HE HAS REQUESTED THAT HE GOES TO SEE DR. ALDANA IN FOLLOW UP. (4) DMII (diabetes mellitus, type 2) Assessment & Plan: PT ON LEVEMIR 5 UNITS BID AND ENCOURAGE HIM TO HAVE A SNACK OF AT LEAST 15 GRAMS OF PROTEIN AT HS. BLOOD GLUCOSE HIGHER THIS MORNING, MONITOR BLOOD GLUCOSE FINGER STICKS OVER THE NEXT FEW DAYS TO SEE IF WE NEED TO INCREASE LEVEMIR BACK UP TO 6 UNITS BID. Qualifiers: Diabetes mellitus assisted insulin use: with assisted use Diabetes mellitus complication status: with kidney complications Diabetes mellitus complication detail: with chronic kidney disease Chronic kidney disease stage: stage 4 (severe) Qualified Codes: E11.22 - Type 2 diabetes mellitus with diabetic chronic kidney disease; N18.4 - Chronic kidney disease, stage 4 (severe); Z79.4 - salvage determiner (current) use of insulin (5) Cancer of prostate Status: Chronic Assessment & Plan: CONTINUE WITH SUPPORTIVE CARE (6) CKD (chronic kidney disease) stage 4, GFR 15-29 ml/min (7) Cerebrovascular disease Assessment & Plan: STATUS POST EMBOLIC STROKE - PT NEEDS THERAPY FOR STRENGTHENING AND WILL NEED OUTPATIENT THERAPY ON DISCHARGE. (8) S/P coronary artery stent placement (9) BPH (benign prostatic hyperplasia) Qualifiers: Lower urinary tract symptom presence: symptoms present Lower urinary tract symptom detail: urinary frequency Qualified Codes: N40.1 - Benign prostatic hyperplasia with lower urinary tract symptoms; R35.0 - Frequency of micturition (10) Cardiomyopathy Qualifiers: Cardiomyopathy type: ischemic Qualified Codes: I25.5 - Ischemic cardiomyopathy GHADA SANDOVAL DO May 31, 2020 07:28
[2020-05-31] MEDS: BENZONATATE 100 MG (TESSALON) CAPSULE PO SCH ×3 (08:09→21:33)
[2020-05-31] MEDS: TICAGRELOR 90 MG TABLET (BRILINTA) PO SCH ×2 (08:09→21:32)
[2020-05-31] MEDS: SENNA W/DOCUSATE (SENOKOT S) TABLET PO SCH ×2 (08:09→21:33)
[2020-05-31] MEDS: CARVEDILOL 3.125 MG (COREG) TABLET PO SCH ×2 (08:09→17:19)
[2020-05-31] MEDS: DOCUSATE SODIUM 100 MG (COLACE) CAP PO SCH ×2 (08:09→21:33)
[2020-05-31] MEDS: ASPIRIN E.C. 81 MG (ECOTRIN) TAB PO SCH (08:09)
[2020-05-31] MEDS: polyethylene glycoL POWDER 17 GM (MIRALAX) PACK PO SCH ×2 (08:10→21:40)
--- NOTE | 2020-05-31 12:06 | Physical Therapy Daily Note ---
PT Daily Note-Current Subjective Pt in bed, agreeable. Voices wanting to go home [place] but agreeable. Mental Status Patient Orientation: Person, Place, Time, Situation Transfers SCALE: Activities may be completed with or without assistive devices. 6-Iadcszagjn-vlerakv completes the activity by him/herself with no assistance from a helper. 5-Set-up or Clean-up Assistance-helper sets up or cleans up; patient completes activity. [place] assists only prior to or following the activity. 4-Supervision or Touching Assistance-helper provides verbal cues and/or touching/steadying and/or contact guard assistance as patient completes activity. Assistance may be provided throughout the activity or intermittently. 3-Partial/Moderate Assistance-helper does LESS THAN HALF the effort. [place] lifts, holds or supports trunk or limbs, but provides less than half the effort. 2-Substantial/Maximal Assistance-helper does MORE THAN HALF the effort. [place] lifts or holds trunk or limbs and provides more than half the effort. 8-Avjqdwdkd-johhex does ALL the effort. Patient does none of the effort to complete the activity. Or, the assistance of 2 or more helpers is required for the patient to complete the activity. If activity was not attempted, code reason: 7-Patient Refused. 9-Not Applicable-not attempted and the patient did not perform the activity before the current illness, exacerbation or injury. 10-Not Attempted due to Environmental Limitations-(lack of equipment, weather restraints, etc.). 88-Not Attempted due to Medical Conditions or Safety Concerns. Roll Left & Right (QC): 5 Sit to Lying (QC): 5 Lying to Sitting/Side of Bed(Q: 5 Sit to Stand (QC): 5 Toilet Transfer (QC): 4 Pt requires assist with toilet transfer, attempting to sit before doffing pants. VCS to navigate walker in small space. Weight Bearing Right Lower Extremity: Right Full Weight Bearing Left Lower Extremity: Left Full Weight Bearing Gait Training Does the Patient Walk?: Yes Distance: 150 Walk 10 feet (QC): 5 Walk 50 ft with 2 Turns(QC): 5 Walk 150 ft (QC): 5 Gait Persons Needed: 1 Gait Assistive Device: FWW Close SBA with occasional VCS for posture and positioning in FWW and to avoid running walker into objects. Exercises NuStep Minutes: 8 NuStep Workload: 4 Treatments Gait training with FWW, NuStep for functional activity tolerance. Returned to bed with all needs met. Assessment Current Status: Good Progress Pt tolerated well. Requires supervision for safety. PT Short Term Goals Short Term Goals Time Frame: May 30, 2020 Roll Left & Right: 4 Sit to lyin Lying to sitting on side of be: 4 Sit to stand: 4 Chair/fbx-nu-zsrqs transfer: 4 Toilet transfer: 4 Walk 10 feet: 4 PT Powder And Primer Canning Leader Goals Powder And Primer Canning Leader Goals PT Usp Goals Time Frame: Jun 13, 2020 Roll Left & Right (QC): 4 (SBA) Sit to Lying (QC): 4 (SBA) Lying-Sitting on Side/Bed(QC): 4 (SBA) Sit to Stand (QC): 4 (SBA) Chair/Rrs-ia-Gxaqd Xfer(QC): 4 (SBA) Toilet Transfer (QC): 4 (SBA) Car Transfer (QC): 4 (SBA) Does the Patient Walk: Yes Walk 10 feet (QC): 4 (SBA) Walk 50ft with 2 Turns (QC): 4 (SBA) Walk 150 ft (QC): 4 (SBA) Walking 10ft on Uneven Surface: 4 (SBA) 1 Step (curb) (QC): 4 (CGA) 4 Steps (QC): 4 (CGA) 12 Steps (QC): 4 (CGA) Picking up an Object (QC): 4 (CGA) Wheel 50 feet with 2 turns (QC: 6 Wheel 150 feet: 6 PT Plan Problem List Problem List: Activity Tolerance, Functional Strength, Safety, Balance, Gait, Transfer Treatment/Plan Treatment Plan: Continue Plan of Care Treatment Plan: Bed Mobility, Education, Functional Activity Yuri, Functional Strength, Group Therapy, Gait, Safety, Therapeutic Exercise, Transfers Treatment Duration: Jun 13, 2020 Frequency: At least 5 of 7 days/Wk (IRF) Estimated Hrs Per Day: 1.5 hours per day Patient and/or Family Agrees t: Yes Time/GCodes Time In: 1056 Time Out: 1131 Total Billed Treatment Time: 35 Total Billed Treatment 1, EX x 8', Gt x 27' PREET ALLRED DPT May 31, 2020 12:06
[2020-05-31 16:00] VITALS: BP 104/59
[2020-05-31] MEDS: MELATONIN 3 MG TABLET PO SCH (21:32)
[2020-06-01] MEDS: guaiFENesin/CODEINE (ROBITUSSIN AC) 10ML UDC PO SCH ×6 (01:00→21:20)
[2020-06-01 06:00] VITALS: BP 116/55
[2020-06-01] MEDS: inSUlin ASPART (NovoLOG) 1 UNIT/0.01 ML (CHARGE PER UNIT) SC SCH ×4 (06:00→20:50)
[2020-06-01] MEDS: CATHETER FLUSH 10 ML SYR IV SCH ×3 (06:15→21:20)
[2020-06-01] MEDS: DOCUSATE SODIUM 100 MG (COLACE) CAP PO SCH ×2 (09:43→21:16)
[2020-06-01] MEDS: SENNA W/DOCUSATE (SENOKOT S) TABLET PO SCH ×2 (09:44→21:15)
[2020-06-01] MEDS: TICAGRELOR 90 MG TABLET (BRILINTA) PO SCH ×2 (09:44→21:15)
[2020-06-01] MEDS: LACTULOSE SYRUP 10GM/15ML (ENULOSE) 30ML UDC PO PRN (09:44)
[2020-06-01] MEDS: ASPIRIN E.C. 81 MG (ECOTRIN) TAB PO SCH (09:44)
[2020-06-01] MEDS: BENZONATATE 100 MG (TESSALON) CAPSULE PO SCH ×3 (09:44→21:15)
[2020-06-01] MEDS: CARVEDILOL 3.125 MG (COREG) TABLET PO SCH ×2 (09:44→18:32)
[2020-06-01] MEDS: polyethylene glycoL POWDER 17 GM (MIRALAX) PACK PO SCH ×2 (09:45→21:20)
--- NOTE | 2020-06-01 12:48 | PM&R Progress Note ---
Subjective HPI/CC On Admission Date Seen by Provider: Jun 01, 2020 Time Seen by Provider: 12:45 Subjective/Events-last exam 06/01/20: Confused at times Got up last night and walked to closet Dreamt he was swimming last night Refuses suppository 05/31/20: Patient in better mood BM+ Eating well 05/30/20: Patient seems to be doing better Less coughing More clear thought process 05/27 last BM 05/29/20: Cough improved Status improved Better mood 05/28/20: Pt coughing a bit still Will need 25/10 supervision so that may require custodial placement Family updated Antibiotics is now completed 05/27/20: Niece is at the bedside Overall doing very well Confusion occurs at times Plenty of family members taking care of him at home so that should be a good and safe discharge 05/26/20: Pt confused Doesnt really want me to see him today Its a struggle per Dr. Isaac also Hgb 10.4 Refusing to eat most of the time 05/25/20: Much improved Good family meeting Family at bedside RLL PNA crackles noted Cough improved with meds Decreased confusion Appetite better BM++ 05/24/20: Patient confused Sometimes willing to participate Slow processing per PCP after I conferred with her indepth about his hx Incontinent of urine noted Levaquin maintained for RLL PNA CXR reviewed Review of Systems General: Fatigue, Malaise Gastrointestinal: Constipation Objective Exam Vital Signs Vital Signs Date Time Temp Pulse Resp B/P (MAP) Pulse Ox O2 Delivery O2 Flow Rate FiO2 06/01/20 08:38 Room Air 06/01/20 06:00 36.8 82 20 116/55 (75) 98 Capillary Refill : Less Than 3 Seconds General Appearance: No Apparent Distress, WD/WN, Anxious HEENT: PERRL/EOMI Neck: Full Range of Motion, Normal Inspection, Non Tender, Supple Respiratory: Chest Non Tender, No Accessory Muscle Use, No Respiratory Distress, Crackles (CRACKLES IN RIGHT BASE) Cardiovascular: Regular Rate, Rhythm, No Edema Gastrointestinal: Normal Bowel Sounds, No Organomegaly, No Pulsatile Mass, Non Tender, Soft Rectal: Deferred Back: Normal Inspection, No CVA Tenderness, No Vertebral Tenderness Extremity: Normal Capillary Refill, Non Tender, No Calf Tenderness, No Pedal Edema Neurologic/Psychiatric: Alert, Oriented x3, No Motor/Sensory Deficits, Normal Mood/Affect, striper II-XII Norm as Tested Skin: Normal Color, Warm/Dry Lymphatic: No Adenopathy Results/Procedures Lab Patient resulted labs reviewed. FIM Transfers Therapy Code Descriptions/Definitions Functional [place] Measure: 0=Not Assessed/NA 4=Minimal Assistance 1=Total Assistance 5=Supervision or Setup 2=Maximal Assistance 6=Modified [place] 3=Moderate Assistance 7=Complete IndependenceSCALE: Activities may be completed with or without assistive devices. 5-Mifngefebw-ngtcdso completes the activity by him/herself with no assistance from a helper. 5-Set-up or Clean-up Assistance-helper sets up or cleans up; patient completes activity. [place] assists only prior to or following the activity. 4-Supervision or Touching Assistance-helper provides verbal cues and/or touching/steadying and/or contact guard assistance as patient completes activity. Assistance may be provided throughout the activity or intermittently. 3-Partial/Moderate Assistance-helper does LESS THAN HALF the effort. [place] lifts, holds or supports trunk or limbs, but provides less than half the effort. 2-Substantial/Maximal Assistance-helper does MORE THAN HALF the effort. [place] lifts or holds trunk or limbs and provides more than half the effort. 8-Pcyaezweo-rxbqdm does ALL the effort. Patient does none of the effort to complete the activity. Or, the assistance of 2 or more helpers is required for the patient to complete the activity. If activity was not attempted, code reason: 7-Patient Refused. 9-Not Applicable-not attempted and the patient did not perform the activity before the current illness, exacerbation or injury. 10-Not Attempted due to Environmental Limitations-(lack of equipment, weather restraints, etc.). 88-Not Attempted due to Medical Conditions or Safety Concerns. Roll Left to Right (QC): 5 Sit to Lying (QC): 5 Sit to Stand (QC): 5 Chair/Izo-dn-Pvtea Xfer(QC): 4 Car Transfer (QC): 4 Gait Training Does the Patient Walk?: Yes Distance: 150 Walk 10 feet (QC): 5 Walk 50 ft with 2 Turns(QC): 5 Walk 150 ft (QC): 5 Walking 10ft/uneven surface-QC: 7 Gait Persons Needed: 1 Gait Assistive Device: FWW Wheelchair Training Does the Pt Use a Wheelchair?: Yes Wheel 50 ft with 2 turns (QC): 3 Wheel 150 ft (QC): 7 Type of Wheelchair: Manual (3) Stair Training Stair Training: Handrails/: 2 handrails #of Steps: 4 1 Step (curb) (QC): 7 4 Steps (QC): 3 12 Steps (QC): 88 Stairs: Pattern: Reciprocal Balance Picking up an Object (QC): 7 ADL-Treatment Eating (QC): 6 Oral Hygiene (QC): 4 Bathing Location: L Arm, R Arm, Chest Shower/Bathe Self (QC): 4 Upper Body Dressing (QC): 3 Lower Body Dressing (QC): 2 On/Off Footwear (QC): 2 Toileting Hygiene (QC): 3 Toilet Transfer (QC): 4 Assessment/Plan Assessment and Plan Assess & Plan/Chief Complaint Assessment: Critical illness myopathy s/p cardiogenic shock CKD Stage 4 HTN DM Confusion Cebrovascular disease on MRI Fall risk Plan: IRF protocol Monitor closely Monitor creat Cardiology consultation 05/24/20: Fall risk Incontinence Monitor confusion PCP meeting tomorrow with family 05/25/20: Improved status today Improved strength Less confusion 05/26/20: Monitor BP Fall risk 05/27/20: Confusion noted Appears there are plenty of family members able to check in on him 05/28/20: Needs NH or family with 25/10 supervision 05/29/20: Monitor BP Cough improved 05/30/20: SW with family today In-depth discussion regarding home dispo 05/31/20: Monitor closely Fall risk 06/01/20: Monitor closely Check labs in am Needs NHP (1) Pneumonia Status: Acute Assessment & Plan: PT ON LEVAQUIN 500MG Q48H, MONITOR CHEST XRAY ON 05/27/2020 Qualifiers: Laterality: right Lung location: lower lobe of lung (2) Acute on chronic kidney failure Assessment & Plan: CONTINUE TO AVOID NEPHROTOXIC AGENTS WILL SEE DR. PORTILLO OUTPATIENT IN FOLLOW UP. Qualifiers: Acute renal failure type: unspecified Chronic kidney disease stage: stage 4 (severe) Qualified Codes: N17.9 - Acute kidney failure, unspecified; N18.4 - Chronic kidney disease, stage 4 (severe) (3) Acute and subacute ischemic heart disease Assessment & Plan: PT HAS EJECTION FRACTION OF 15% ON EVALUATION AT [place]. PT CONTINUES TO NEED THERAPY FOR STRENGTHENING, HE HAS REQUESTED THAT HE GOES TO SEE DR. ALDANA IN FOLLOW UP. (4) DMII (diabetes mellitus, type 2) Assessment & Plan: PT ON LEVEMIR 5 UNITS BID AND ENCOURAGE HIM TO HAVE A SNACK OF AT LEAST 15 GRAMS OF PROTEIN AT HS. BLOOD GLUCOSE HIGHER THIS MORNING, MONITOR BLOOD GLUCOSE FINGER STICKS OVER THE NEXT FEW DAYS TO SEE IF WE NEED TO INCREASE LEVEMIR BACK UP TO 6 UNITS BID. Qualifiers: Diabetes mellitus roasterman insulin use: with usp use Diabetes mellitus complication status: with kidney complications Diabetes mellitus complication detail: with chronic kidney disease Chronic kidney disease stage: stage 4 (severe) Qualified Codes: E11.22 - Type 2 diabetes mellitus with diabetic chronic kidney disease; N18.4 - Chronic kidney disease, stage 4 (severe); Z79.4 - roasterman (current) use of insulin (5) Cancer of prostate Status: Chronic Assessment & Plan: CONTINUE WITH SUPPORTIVE CARE (6) CKD (chronic kidney disease) stage 4, GFR 15-29 ml/min (7) Cerebrovascular disease Assessment & Plan: STATUS POST EMBOLIC STROKE - PT NEEDS THERAPY FOR STRENGTHENING AND WILL NEED OUTPATIENT THERAPY ON DISCHARGE. (8) S/P coronary artery stent placement (9) BPH (benign prostatic hyperplasia) Qualifiers: Lower urinary tract symptom presence: symptoms present Lower urinary tract symptom detail: urinary frequency Qualified Codes: N40.1 - Benign prostatic hyperplasia with lower urinary tract symptoms; R35.0 - Frequency of micturition (10) Cardiomyopathy Qualifiers: Cardiomyopathy type: ischemic Qualified Codes: I25.5 - Ischemic cardiomyopathy GHADA SANDOVAL DO Jun 01, 2020 12:48
[2020-06-01 17:11] VITALS: BP 111/59
[2020-06-01] MEDS: MELATONIN 3 MG TABLET PO SCH (21:16)
[2020-06-02] MEDS: guaiFENesin/CODEINE (ROBITUSSIN AC) 10ML UDC PO SCH ×6 (01:00→21:14)
[2020-06-02] MEDS: inSUlin ASPART (NovoLOG) 1 UNIT/0.01 ML (CHARGE PER UNIT) SC SCH ×4 (04:49→21:16)
[2020-06-02 05:13] LABS: BASOPHILS # (AUTO) 0.1 10^3/uL (0.0-0.1); BASOPHILS % (AUTO) 1 % (0-10); EOSINOPHILS # (AUTO) 0.4 10^3/uL (0.0-0.3); EOSINOPHILS % (AUTO) 4 % (0-10); HEMATOCRIT 34 % (40-54); HEMOGLOBIN 10.8 g/dL (13.3-17.7); LYMPHOCYTES # (AUTO) 0.7 10^3/uL (1.0-4.0); LYMPHOCYTES % (AUTO) 8 % (12-44); MEAN CORPUSCULAR HEMOGLOBIN 31 pg (25-34); MEAN CORPUSCULAR HGB CONC 32 g/dL (32-36); MEAN CORPUSCULAR VOLUME 96 fL (80-99); MONOCYTES # (AUTO) 0.9 10^3/uL (0.0-1.0); MONOCYTES % (AUTO) 10 % (0-12); NEUTROPHILS # (AUTO) 7.4 10^3/uL (1.8-7.8); NEUTROPHILS % (AUTO) 77 % (42-75); PLATELET COUNT 295 10^3/uL (130-400); WHITE BLOOD COUNT 9.6 10^3/uL (4.3-11.0)
[2020-06-02 05:25] LABS: POTASSIUM 4.2 MMOL/L (3.6-5.0)
[2020-06-02 05:26] LABS: CALCIUM 8.6 MG/DL (8.5-10.1)
[2020-06-02 05:28] LABS: TOTAL PROTEIN 6.1 GM/DL (6.4-8.2)
[2020-06-02 05:31] LABS: CREATININE SERUM 2.06 MG/DL (0.60-1.30)
[2020-06-02 05:51] VITALS: BP 116/55
[2020-06-02 05:53] LABS: BAND NEUTROPHILS 1 %; BASOPHILS % (MANUAL) 1 %; EOSINOPHILS % (MANUAL) 5 %; LYMPHOCYTES % (MANUAL) 9 %; MONOCYTES % (MANUAL) 6 %; NEUTROPHILS % (MANUAL) 78 %
[2020-06-02 05:54] LABS: RBC MORPH NORMAL
[2020-06-02] MEDS: CATHETER FLUSH 10 ML SYR IV SCH ×3 (06:02→21:17)
[2020-06-02] MEDS: SENNA W/DOCUSATE (SENOKOT S) TABLET PO SCH ×2 (08:53→21:15)
[2020-06-02] MEDS: TICAGRELOR 90 MG TABLET (BRILINTA) PO SCH ×2 (08:54→21:14)
[2020-06-02] MEDS: DOCUSATE SODIUM 100 MG (COLACE) CAP PO SCH ×2 (08:54→21:14)
[2020-06-02] MEDS: CARVEDILOL 3.125 MG (COREG) TABLET PO SCH ×2 (08:54→17:42)
[2020-06-02] MEDS: BENZONATATE 100 MG (TESSALON) CAPSULE PO SCH ×3 (08:54→21:15)
[2020-06-02] MEDS: polyethylene glycoL POWDER 17 GM (MIRALAX) PACK PO SCH ×2 (08:54→21:00)
[2020-06-02] MEDS: ASPIRIN E.C. 81 MG (ECOTRIN) TAB PO SCH (08:54)
[2020-06-02] MEDS: LACTULOSE SYRUP 10GM/15ML (ENULOSE) 30ML UDC PO PRN (09:03)
--- NOTE | 2020-06-02 10:39 | PM&R Progress Note ---
Subjective HPI/CC On Admission Date Seen by Provider: Jun 02, 2020 Time Seen by Provider: 10:30 Subjective/Events-last exam 06/02/20: Pt will be discharged when half-way is placed Bowels moving a small amount Lactulose is given for bowels since he declines a suppository Will increase Senna to two BID 06/01/20: Confused at times Got up last night and walked to closet Dreamt he was swimming last night Refuses suppository 05/31/20: Patient in better mood BM+ Eating well 05/30/20: Patient seems to be doing better Less coughing More clear thought process 05/27 last BM 05/29/20: Cough improved Status improved Better mood 05/28/20: Pt coughing a bit still Will need 25/10 supervision so that may require half-way placement Family updated Antibiotics is now completed 05/27/20: Niece is at the bedside Overall doing very well Confusion occurs at times Plenty of family members taking care of him at home so that should be a good and safe discharge 05/26/20: Pt confused Doesnt really want me to see him today Its a struggle per Dr. Isaac also Hgb 10.4 Refusing to eat most of the time 05/25/20: Much improved Good family meeting Family at bedside RLL PNA crackles noted Cough improved with meds Decreased confusion Appetite better BM++ 05/24/20: Patient confused Sometimes willing to participate Slow processing per PCP after I conferred with her indepth about his hx Incontinent of urine noted Levaquin maintained for RLL PNA CXR reviewed Review of Systems General: Fatigue, Malaise Objective Exam Vital Signs Vital Signs Date Time Temp Pulse Resp B/P (MAP) Pulse Ox O2 Delivery O2 Flow Rate FiO2 06/03/20 05:16 36.2 87 18 133/57 (82) 99 Room Air Capillary Refill : Less Than 3 Seconds General Appearance: No Apparent Distress, WD/WN, Anxious HEENT: PERRL/EOMI Neck: Full Range of Motion, Normal Inspection, Non Tender, Supple Respiratory: Chest Non Tender, No Accessory Muscle Use, No Respiratory Distress, Crackles (CRACKLES IN RIGHT BASE) Cardiovascular: Regular Rate, Rhythm, No Edema Gastrointestinal: Normal Bowel Sounds, No Organomegaly, No Pulsatile Mass, Non Tender, Soft Rectal: Deferred Back: Normal Inspection, No CVA Tenderness, No Vertebral Tenderness Extremity: Normal Capillary Refill, Non Tender, No Calf Tenderness, No Pedal Edema Neurologic/Psychiatric: Alert, Oriented x3, No Motor/Sensory Deficits, Normal Mood/Affect, white sidewall tire buffer II-XII Norm as Tested Skin: Normal Color, Warm/Dry Lymphatic: No Adenopathy Results/Procedures Lab Patient resulted labs reviewed. FIM Transfers Therapy Code Descriptions/Definitions Functional [place] Measure: 0=Not Assessed/NA 4=Minimal Assistance 1=Total Assistance 5=Supervision or Setup 2=Maximal Assistance 6=Modified [place] 3=Moderate Assistance 7=Complete IndependenceSCALE: Activities may be completed with or without assistive devices. 3-Ysdwlaujgr-ttugtvi completes the activity by him/herself with no assistance from a helper. 5-Set-up or Clean-up Assistance-helper sets up or cleans up; patient completes activity. [place] assists only prior to or following the activity. 4-Supervision or Touching Assistance-helper provides verbal cues and/or touching/steadying and/or contact guard assistance as patient completes activity. Assistance may be provided throughout the activity or intermittently. 3-Partial/Moderate Assistance-helper does LESS THAN HALF the effort. [place] lifts, holds or supports trunk or limbs, but provides less than half the effort. 2-Substantial/Maximal Assistance-helper does MORE THAN HALF the effort. [place] lifts or holds trunk or limbs and provides more than half the effort. 4-Hnrfovzcg-hxzukq does ALL the effort. Patient does none of the effort to complete the activity. Or, the assistance of 2 or more helpers is required for the patient to complete the activity. If activity was not attempted, code reason: 7-Patient Refused. 9-Not Applicable-not attempted and the patient did not perform the activity before the current illness, exacerbation or injury. 10-Not Attempted due to Environmental Limitations-(lack of equipment, weather restraints, etc.). 88-Not Attempted due to Medical Conditions or Safety Concerns. Roll Left to Right (QC): 5 Sit to Lying (QC): 5 Sit to Stand (QC): 5 Chair/Bzc-ry-Kqrib Xfer(QC): 4 Car Transfer (QC): 4 Gait Training Does the Patient Walk?: Yes Distance: 150 Walk 10 feet (QC): 5 Walk 50 ft with 2 Turns(QC): 5 Walk 150 ft (QC): 5 Walking 10ft/uneven surface-QC: 7 Gait Persons Needed: 1 Gait Assistive Device: FWW Wheelchair Training Does the Pt Use a Wheelchair?: Yes Wheel 50 ft with 2 turns (QC): 3 Wheel 150 ft (QC): 7 Type of Wheelchair: Manual (3) Stair Training Stair Training: Handrails/: 2 handrails #of Steps: 4 1 Step (curb) (QC): 7 4 Steps (QC): 3 12 Steps (QC): 88 Stairs: Pattern: Reciprocal Balance Picking up an Object (QC): 7 ADL-Treatment Eating (QC): 6 Oral Hygiene (QC): 4 Bathing Location: L Arm, R Arm, Chest Shower/Bathe Self (QC): 4 Upper Body Dressing (QC): 3 Lower Body Dressing (QC): 2 On/Off Footwear (QC): 2 Toileting Hygiene (QC): 3 Toilet Transfer (QC): 4 Assessment/Plan Assessment and Plan Assess & Plan/Chief Complaint Assessment: Critical illness myopathy s/p cardiogenic shock CKD Stage 4 HTN DM Confusion Cebrovascular disease on MRI Fall risk Plan: IRF protocol Monitor closely Monitor creat Cardiology consultation 05/24/20: Fall risk Incontinence Monitor confusion PCP meeting tomorrow with family 05/25/20: Improved status today Improved strength Less confusion 05/26/20: Monitor BP Fall risk 05/27/20: Confusion noted Appears there are plenty of family members able to check in on him 05/28/20: Needs NH or family with 25/10 supervision 05/29/20: Monitor BP Cough improved 05/30/20: SW with family today In-depth discussion regarding home dispo 05/31/20: Monitor closely Fall risk 06/01/20: Monitor closely Check labs in am Needs NHP 06/02/20: Monitor BP and BS NHP at DC (1) Pneumonia Status: Acute Assessment & Plan: PT ON LEVAQUIN 500MG Q48H, MONITOR CHEST XRAY ON 05/27/2020 Qualifiers: Laterality: right Lung location: lower lobe of lung (2) Acute on chronic kidney failure Assessment & Plan: CONTINUE TO AVOID NEPHROTOXIC AGENTS WILL SEE DR. PORTILLO OUTPATIENT IN FOLLOW UP. Qualifiers: Acute renal failure type: unspecified Chronic kidney disease stage: stage 4 (severe) Qualified Codes: N17.9 - Acute kidney failure, unspecified; N18.4 - Chronic kidney disease, stage 4 (severe) (3) Acute and subacute ischemic heart disease Assessment & Plan: PT HAS EJECTION FRACTION OF 15% ON EVALUATION AT [place]. PT CONTINUES TO NEED THERAPY FOR STRENGTHENING, HE HAS REQUESTED THAT HE GOES TO SEE DR. ALDANA IN FOLLOW UP. (4) DMII (diabetes mellitus, type 2) Assessment & Plan: PT ON LEVEMIR 5 UNITS BID AND ENCOURAGE HIM TO HAVE A SNACK OF AT LEAST 15 GRAMS OF PROTEIN AT HS. BLOOD GLUCOSE HIGHER THIS MORNING, MONITOR BLOOD GLUCOSE FINGER STICKS OVER THE NEXT FEW DAYS TO SEE IF WE NEED TO INCREASE LEVEMIR BACK UP TO 6 UNITS BID. Qualifiers: Diabetes mellitus usp insulin use: with usp use Diabetes mellitus complication status: with kidney complications Diabetes mellitus complication detail: with chronic kidney disease Chronic kidney disease stage: stage 4 (severe) Qualified Codes: E11.22 - Type 2 diabetes mellitus with diabetic chronic kidney disease; N18.4 - Chronic kidney disease, stage 4 (severe); Z79.4 - MCFP (current) use of insulin (5) Cancer of prostate Status: Chronic Assessment & Plan: CONTINUE WITH SUPPORTIVE CARE (6) CKD (chronic kidney disease) stage 4, GFR 15-29 ml/min (7) Cerebrovascular disease Assessment & Plan: STATUS POST EMBOLIC STROKE - PT NEEDS THERAPY FOR STRENGTHENING AND WILL NEED OUTPATIENT THERAPY ON DISCHARGE. (8) S/P coronary artery stent placement (9) BPH (benign prostatic hyperplasia) Qualifiers: Lower urinary tract symptom presence: symptoms present Lower urinary tract symptom detail: urinary frequency Qualified Codes: N40.1 - Benign prostatic hyperplasia with lower urinary tract symptoms; R35.0 - Frequency of micturition (10) Cardiomyopathy Qualifiers: Cardiomyopathy type: ischemic Qualified Codes: I25.5 - Ischemic cardiomyopathy GHADA SANDOVAL DO Jun 02, 2020 10:39
--- NOTE | 2020-06-02 11:15 | Occupational Ther Daily Note ---
OT Current Status-Daily Note Subjective Pt alert, lying in bed. Pt is more agreeable to therapy. Pt states that they will probably change his discharge date and he will have to stay here another 2 weeks. No c/o pain. At end of treatment, pt c/o nausea and stomach hurting, reported to nrsg. Mental Status/Objective Patient Orientation: Person, Place ADL-Treatment Therapy Code Descriptions/Definitions Functional [place] Measure: 0=Not Assessed/NA 4=Minimal Assistance 1=Total Assistance 5=Supervision or Setup 2=Maximal Assistance 6=Modified [place] 3=Moderate Assistance 7=Complete IndependenceSCALE: Activities may be completed with or without assistive devices. 1-Oyirtqlbzo-bhccumb completes the activity by him/herself with no assistance from a helper. 5-Set-up or Clean-up Assistance-helper sets up or cleans up; patient completes activity. [place] assists only prior to or following the activity. 4-Supervision or Touching Assistance-helper provides verbal cues and/or touching/steadying and/or contact guard assistance as patient completes activity. Assistance may be provided throughout the activity or intermittently. 3-Partial/Moderate Assistance-helper does LESS THAN HALF the effort. [place] lifts, holds or supports trunk or limbs, but provides less than half the effort. 2-Substantial/Maximal Assistance-helper does MORE THAN HALF the effort. [place] lifts or holds trunk or limbs and provides more than half the effort. 5-Ieyxtimkt-opphbl does ALL the effort. Patient does none of the effort to complete the activity. Or, the assistance of 2 or more helpers is required for the patient to complete the activity. If activity was not attempted, code reason: 7-Patient Refused. 9-Not Applicable-not attempted and the patient did not perform the activity before the current illness, exacerbation or injury. 10-Not Attempted due to Environmental Limitations-(lack of equipment, weather restraints, etc.). 88-Not Attempted due to Medical Conditions or Safety Concerns. Oral Hygiene (QC): 4 (SBA standing at sink to complete oral care.) Lower Body Dressing (QC): 3 (After set up, pt able to don R LE into pant leg then assist to thread L LE into correct pant leg, pt able to complete rest by self.) On/Off Footwear: 3 (Pt able to don one shoe then requires assistance to problem solve why other shoe won't go on.) Toileting Hygiene (QC): 4 (SBA to cleanse and manage clothing.) Toilet Transfer (QC): 4 (CGA to transfer with FWW and BSC.) Co-treat with PT [id number], skilled instruction and care requires 2 clinicians due to increased fall risk, fatigue and self limiting behaviors. PT focusing on transfers, mobility and B LE strengthening while OT focusing on ADLs, functional transfers and B UE strengthening. Other Treatment See PT notes for distance ambulating for session. Pt then worked on higher level balance skills while completing 4 B UE strengthening exercises, 2 with 2# wts and 2 against gravity. Pt able to follow directions with visual and gestural cues. After therapy, pt sitting in bathroom with call light in reach. Nrsg aware of pt's position. OT Short Term Goals Short Term Goals Eatin Oral hygiene: 5 Toileting hygiene: 3 Shower/bathe self: 3 Upper body dressin Lower body dressin Putting on/taking off footwear: 3 OT Group Home Goals Bar Assistant Goals Time Frame: Jun 06, 2020 Eating (QC): 6 Oral Hygiene (QC): 6 Toileting Hygiene (QC): 6 Shower/Bathe Self (QC): 4 Upper Body Dressing (QC): 6 Lower Body Dressing (QC): 4 On/Off Footwear (QC): 4 Additional Goals: 1-Demonstrate ADL Tasks, 2-Verbalize Understanding, 3- ImproveStrength/Yuri 1=Demonstrate adherence to instructed precautions during ADL tasks. 2=Patient will verbalize/demonstrate understanding of assistive devices/modifications for ADL. 3=Patient will improve strength/tolerance for activity to enable patient to perform ADL's. OT Education/Plan Problem List/Assessment Assessment: Decreased Activ Tolerance, Impaired Self-Care Skills Discharge Recommendations Plan/Recommendations: Continue POC Treatment Plan/Plan of Care Patient would benefit from OT for education, treatment and training to promote independence in ADL's, mobility, safety and/or upper extremity function for ADL's. Plan of Care: ADL Retraining, Caregiver Training, Concurrent Therapy, Functional Mobility, Group Exercise/Act as Ind, UE Funct Exercise/Act, UE Neuromus Re-Ed/Coord, W/C Management Training Treatment Duration: Jun 06, 2020 Frequency: At least 5 of 7 days/Wk (IRF) Estimated Hrs Per Day: 1.5 hours per day Agreement: Yes Rehab Potential: Poor Time/GCodes Start Time: 10:00 Stop Time: 11:15 Total Time Billed (hr/min): 75 Billed Treatment Time 1 visit-ADL 3 (45 min) EX 2 (30 min) co-treat with PT [id number], individual [id number] MAKENZIE COMBS Jun 02, 2020 11:15
--- NOTE | 2020-06-02 11:18 | Physical Therapy Daily Note ---
PT Daily Note-Current Subjective Patient in bed pre tx, agrees to PT with encouragement, has no complaints of pain, will be co-treating with OT due to poor safety awareness, impaired mobility, endurance, coordinate UE and LE during activity, safety and reduce risk of falls. Appearance Patient on toilet post tx with OT Mental Status Patient Orientation: Person, Confused, Place, Situation Transfers SCALE: Activities may be completed with or without assistive devices. 5-Pqllcjpigr-bpnltjz completes the activity by him/herself with no assistance from a helper. 5-Set-up or Clean-up Assistance-helper sets up or cleans up; patient completes activity. [place] assists only prior to or following the activity. 4-Supervision or Touching Assistance-helper provides verbal cues and/or touching/steadying and/or contact guard assistance as patient completes activity. Assistance may be provided throughout the activity or intermittently. 3-Partial/Moderate Assistance-helper does LESS THAN HALF the effort. [place] lifts, holds or supports trunk or limbs, but provides less than half the effort. 2-Substantial/Maximal Assistance-helper does MORE THAN HALF the effort. [place] lifts or holds trunk or limbs and provides more than half the effort. 6-Vodhgxstn-snnojo does ALL the effort. Patient does none of the effort to complete the activity. Or, the assistance of 2 or more helpers is required for the patient to complete the activity. If activity was not attempted, code reason: 7-Patient Refused. 9-Not Applicable-not attempted and the patient did not perform the activity before the current illness, exacerbation or injury. 10-Not Attempted due to Environmental Limitations-(lack of equipment, weather restraints, etc.). 88-Not Attempted due to Medical Conditions or Safety Concerns. Roll Left & Right (QC): 4 Lying to Sitting/Side of Bed(Q: 4 Sit to Stand (QC): 4 Chair/Fnd-oo-Zshop Xfer(QC): 4 Patient sits on the side of the bed and begins dressing and putting on shoes, needs assist (see OT note). Then ambulates to restroom for brushing teeth, standing at the sink. Weight Bearing Right Lower Extremity: Right Full Weight Bearing Left Lower Extremity: Left Full Weight Bearing Gait Training Distance: 300'x2 Walk 10 feet (QC): 4 Walk 50 ft with 2 Turns(QC): 4 Walk 150 ft (QC): 4 Gait Assistive Device: FWW WC follow, very slow Exercises standing balance activities standing on airex and performing UE exercise at the same time Treatments PT performed bed mobility and transfers, ambulation, positioning and safety during ADL's, standing balance, OT performed ADL's, UE exercise and safety and positioning during activity. Assessment Current Status: Fair Progress Less resistance to participating, improved endurance PT Short Term Goals Short Term Goals Time Frame: May 30, 2020 Roll Left & Right: 4 Sit to lyin Lying to sitting on side of be: 4 Sit to stand: 4 Chair/bir-le-qymqr transfer: 4 Toilet transfer: 4 Walk 10 feet: 4 PT Financial Institution Vice President Goals Correction Goals PT Financial Institution Vice President Goals Time Frame: Jun 13, 2020 Roll Left & Right (QC): 4 (SBA) Sit to Lying (QC): 4 (SBA) Lying-Sitting on Side/Bed(QC): 4 (SBA) Sit to Stand (QC): 4 (SBA) Chair/Lrz-hp-Ydlyl Xfer(QC): 4 (SBA) Toilet Transfer (QC): 4 (SBA) Car Transfer (QC): 4 (SBA) Does the Patient Walk: Yes Walk 10 feet (QC): 4 (SBA) Walk 50ft with 2 Turns (QC): 4 (SBA) Walk 150 ft (QC): 4 (SBA) Walking 10ft on Uneven Surface: 4 (SBA) 1 Step (curb) (QC): 4 (CGA) 4 Steps (QC): 4 (CGA) 12 Steps (QC): 4 (CGA) Picking up an Object (QC): 4 (CGA) Wheel 50 feet with 2 turns (QC: 6 Wheel 150 feet: 6 PT Plan Problem List Problem List: Activity Tolerance, Functional Strength, Safety, Balance, Gait, Transfer, Bed Mobility, ROM Treatment/Plan Treatment Plan: Continue Plan of Care Treatment Plan: Bed Mobility, Education, Functional Activity Yuri, Functional Strength, Group Therapy, Gait, Safety, Therapeutic Exercise, Transfers Treatment Duration: Jun 13, 2020 Frequency: At least 5 of 7 days/Wk (IRF) Estimated Hrs Per Day: 1.5 hours per day Patient and/or Family Agrees t: Yes Safety Risks/Education Patient Education: Gait Training, Transfer Techniques, Correct Positioning, Safety Issues Teaching Recipient: Patient Teaching Methods: Demonstration, Discussion Response to Teaching: Reinforcement Needed Time/GCodes Time In: 1000 Time Out: 1100 Total Billed Treatment Time: 60 Total Billed Treatment 1 visit EX 30' FA 30' FRANK YATES PT Jun 02, 2020 11:18
--- NOTE | 2020-06-02 13:23 | Speech Therapy Daily Note ---
Speech Daily Progress Note Subjective Date Seen by Provider: Jun 02, 2020 Time Seen by Provider: 00:30 Patient was resting in his bed following his PT and OT therapy. Objective Patient completed word chain with words starting with the last letter of the previous word at 70% with moderate repetitions. Assessment Assessment Current Status: Good Progress Treatment Plan Continue Plan of Care Speech Short Term Goals Short Term Goals Short Term Goals 1) Patient will complete memory tasks related to his daily needs at 80% or greater with minimal cues. 2) Patient will complete problem solving tasks related to his daily needs at 80% or greater with minimal cues. 3) Patient will complete safety awareness tasks related to his daily needs at 80% or greater with minimal cues. Speech Nurse Esthetician Goals Nurse Esthetician Goals Patient will improve cognitive-communication skills in order to improve safety and require minimal assist. Speech-Plan Patient/Family Goals Patient/Family Goals: Patient is scheduled for discharge on Tuesday, June 06, 2020. Treatment Plan Speech Therapy Treatment Plan: Continue Plan of Care Treatment Duration: Jun 06, 2020 Frequency: 4 times per week (Patient will receive skilled ST 4-5x per week) Estimated Hrs Per Day: .5 hour per day Rehab Potential: Poor Barriers to Learning: Patient's cognitive deficits Pt/Family Agrees to Plan: Yes Safety Risks/Education Teaching Recipient: Patient Teaching Methods: Demonstration, Discussion Response to Teaching: Verbalize Understanding, Return Demonstration Education Topics Provided: Continued safety within his environment. Time Speech Therapy Time In: 11:30 Speech Therapy Time Out: 12:00 Total Billed Time: 30 Billed Treatment Time 1, OLENA Brothers Jun 02, 2020 13:23
--- NOTE | 2020-06-02 14:32 | Physical Therapy Daily Note ---
PT Daily Note-Current Subjective Patient in bed pre tx, agrees to PT, has no complaints of pain. Appearance Patient in bed post tx with nurse call, phone, tray, bed alarm on. Patient states "that wore me out". Mental Status Patient Orientation: Person, Confused, Place, Situation Transfers SCALE: Activities may be completed with or without assistive devices. 1-Ckafrijwps-eijefli completes the activity by him/herself with no assistance from a helper. 5-Set-up or Clean-up Assistance-helper sets up or cleans up; patient completes activity. [place] assists only prior to or following the activity. 4-Supervision or Touching Assistance-helper provides verbal cues and/or touching/steadying and/or contact guard assistance as patient completes activity. Assistance may be provided throughout the activity or intermittently. 3-Partial/Moderate Assistance-helper does LESS THAN HALF the effort. [place] lifts, holds or supports trunk or limbs, but provides less than half the effort. 2-Substantial/Maximal Assistance-helper does MORE THAN HALF the effort. [place] lifts or holds trunk or limbs and provides more than half the effort. 3-Rhxwxcfxf-pkljnx does ALL the effort. Patient does none of the effort to complete the activity. Or, the assistance of 2 or more helpers is required for the patient to complete the activity. If activity was not attempted, code reason: 7-Patient Refused. 9-Not Applicable-not attempted and the patient did not perform the activity before the current illness, exacerbation or injury. 10-Not Attempted due to Environmental Limitations-(lack of equipment, weather restraints, etc.). 88-Not Attempted due to Medical Conditions or Safety Concerns. Weight Bearing Right Lower Extremity: Right Full Weight Bearing Left Lower Extremity: Left Full Weight Bearing Exercises Supine Ex: Ankle pumps, Quad Set, Glut sets, Heel Slides, Short Arc Quads, Straight leg raise, Hip abd/add Supine Reps: 20 (BLE) Treatments BLE exercises Assessment Current Status: Fair Progress better participation, patient needed 2 short rest breaks PT Short Term Goals Short Term Goals Time Frame: May 30, 2020 Roll Left & Right: 4 Sit to lyin Lying to sitting on side of be: 4 Sit to stand: 4 Chair/xvs-nw-goxkl transfer: 4 Toilet transfer: 4 Walk 10 feet: 4 PT Director Of [employer] Goals Director Of [employer] Goals PT Skilled Nursing Goals Time Frame: Jun 13, 2020 Roll Left & Right (QC): 4 (SBA) Sit to Lying (QC): 4 (SBA) Lying-Sitting on Side/Bed(QC): 4 (SBA) Sit to Stand (QC): 4 (SBA) Chair/Eeq-kd-Wqpti Xfer(QC): 4 (SBA) Toilet Transfer (QC): 4 (SBA) Car Transfer (QC): 4 (SBA) Does the Patient Walk: Yes Walk 10 feet (QC): 4 (SBA) Walk 50ft with 2 Turns (QC): 4 (SBA) Walk 150 ft (QC): 4 (SBA) Walking 10ft on Uneven Surface: 4 (SBA) 1 Step (curb) (QC): 4 (CGA) 4 Steps (QC): 4 (CGA) 12 Steps (QC): 4 (CGA) Picking up an Object (QC): 4 (CGA) Wheel 50 feet with 2 turns (QC: 6 Wheel 150 feet: 6 PT Plan Problem List Problem List: Activity Tolerance, Functional Strength, Safety, Balance, Gait, Transfer, Bed Mobility, ROM Treatment/Plan Treatment Plan: Continue Plan of Care Treatment Plan: Bed Mobility, Education, Functional Activity Yuri, Functional Strength, Group Therapy, Gait, Safety, Therapeutic Exercise, Transfers Treatment Duration: Jun 13, 2020 Frequency: At least 5 of 7 days/Wk (IRF) Estimated Hrs Per Day: 1.5 hours per day Patient and/or Family Agrees t: Yes Safety Risks/Education Patient Education: Correct Positioning, Safety Issues Teaching Recipient: Patient Teaching Methods: Demonstration, Discussion Response to Teaching: Reinforcement Needed Time/GCodes Time In: 1420 Time Out: 1435 Total Billed Treatment Time: 15 Total Billed Treatment 1 visit EX FRANK COX PT Jun 02, 2020 14:32
[2020-06-02] MEDS: MELATONIN 3 MG TABLET PO SCH (21:17)
[2020-06-02 21:37] VITALS: BP 114/70
[2020-06-03] MEDS: guaiFENesin/CODEINE (ROBITUSSIN AC) 10ML UDC PO SCH ×7 (01:00→21:13)
[2020-06-03 05:16] VITALS: BP 133/57
[2020-06-03] MEDS: CATHETER FLUSH 10 ML SYR IV SCH ×3 (06:01→22:58)
[2020-06-03] MEDS: inSUlin ASPART (NovoLOG) 1 UNIT/0.01 ML (CHARGE PER UNIT) SC SCH ×4 (06:50→21:05)
--- NOTE | 2020-06-03 07:55 | Progress Note ---
Subjective Subjective Date Seen by Provider: Jun 03, 2020 Time Seen by Provider: 07:10 Pt seen and examined. Sitting up in chair, eating breakfast, NAD. Denies chest pain, abd pain, N/V, SOB. States he is feeling a bit better today as he had a large bm last night. He is tired from not getting enough sleep. No other c oncerns/complaints. Review of Systems General: Fatigue HEENT: No Head Aches, No Visual Changes Pulmonary: No Dyspnea, No Cough Cardiovascular: No: Chest Pain, Palpitations, Lt Headedness Gastrointestinal: Constipation; No: Nausea, Vomiting, Abdominal Pain, Diarrhea Genitourinary: No Dysuria, No Incontinence, No Hematuria Musculoskeletal: No: back pain Neurological: Weakness, Confusion; No: Numbness All Other Systems Reviewed All Other Systems Reviewed: Yes Objective Exam Vital Signs Vital Signs - First Documented 05/28/20 05:26 Temp 36.6 Pulse 91 Resp 18 B/P (MAP) 118/67 (84) Pulse Ox 100 O2 Delivery Room Air Capillary Refill : Less Than 3 Seconds General Appearance: No Apparent Distress, Chronically ill Eyes: Bilateral Eye Normal Inspection, Bilateral Eye PERRL, Bilateral Eye EOMI HEENT: PERRL/EOMI, Pharynx Normal Neck: Full Range of Motion, Normal Inspection, Non Tender, Supple Respiratory: Chest Non Tender, Lungs Clear, Normal Breath Sounds, No Accessory Muscle Use, No Respiratory Distress Cardiovascular: Regular Rate, Rhythm, No Edema, No JVD, Normal Peripheral Puls es Gastrointestinal: Normal Bowel Sounds, Non Tender, Soft Rectal: Deferred Back: Normal Inspection Extremity: Normal Capillary Refill, Normal Inspection, Non Tender, No Calf Tenderness, No Pedal Edema Neurologic/Psychiatric: Alert, Oriented x3, No Motor/Sensory Deficits, Normal Mood/Affect Skin: Normal Color, Warm/Dry Lymphatic: No Adenopathy Results Lab Laboratory Tests 06/02/20 12:02: Glucometer 169H 06/02/20 16:14: Glucometer 165H 06/02/20 20:31: Glucometer 218H 06/03/20 06:12: Glucometer 88 Assessment/Plan Assessment/Plan Assessment and Plan Embolic stroke Acute on chronic kidney failure NSTEMI w/ stent placement Ischemic heart disease T2DM BPH Constipation Pt improving with PT/OT with good progression and participation Constipation improving with bowel regimen and suppository yesterday [facility]C [facility] when placed Continue to monitor VS, changes in mental status Problems: (1) Pneumonia Qualifiers: Assessment & Plan: PT SHOULD BE FINISHING LEVAQUIN THIS WEEK, SYMPTOMS IMPROVED. (2) Acute on chronic kidney failure Qualifiers: Qualified Codes: N17.9 - Acute kidney failure, unspecified; N18.4 - Chronic kidney disease, stage 4 (severe) Assessment & Plan: CONTINUE TO AVOID NEPHROTOXIC AGENTS WILL SEE DR. PORTILLO OUTPATIENT IN FOLLOW UP. (3) Acute and subacute ischemic heart disease Assessment & Plan: PT HAS EJECTION FRACTION OF 15% ON EVALUATION AT [facility]. PT CONTINUES TO NEED THERAPY FOR STRENGTHENING, HE HAS REQUESTED THAT HE GOES TO SEE DR. ALDANA IN FOLLOW UP. (4) DMII (diabetes mellitus, type 2) Qualifiers: Qualified Codes: E11.22 - Type 2 diabetes mellitus with diabetic chronic kidney disease; N18.4 - Chronic kidney disease, stage 4 (severe); Z79.4 - intermission coordinator (current) use of insulin Assessment & Plan: PT ON LEVEMIR 5 UNITS BID AND ENCOURAGE HIM TO HAVE A SNACK OF AT LEAST 15 GRAMS OF PROTEIN AT HS. BLOOD GLUCOSE HIGHER THIS MORNING, MONITOR BLOOD GLUCOSE FINGER STICKS OVER THE NEXT FEW DAYS TO SEE IF WE NEED TO INCREASE LEVEMIR BACK UP TO 6 UNITS BID. (5) Cancer of prostate Assessment & Plan: CONTINUE WITH SUPPORTIVE CARE (6) CKD (chronic kidney disease) stage 4, GFR 15-29 ml/min (7) Cerebrovascular disease Assessment & Plan: STATUS POST EMBOLIC STROKE - PT NEEDS THERAPY FOR STRENGTHENING AND WILL NEED OUTPATIENT THERAPY ON DISCHARGE. (8) S/P coronary artery stent placement (9) BPH (benign prostatic hyperplasia) Qualifiers: Qualified Codes: N40.1 - Benign prostatic hyperplasia with lower urinary tract symptoms; R35.0 - Frequency of micturition (10) Cardiomyopathy Qualifiers: Qualified Codes: I25.5 - Ischemic cardiomyopathy CIRILO SHARPE MED STUDENT Jun 03, 2020 07:54
[2020-06-03] MEDS: CARVEDILOL 3.125 MG (COREG) TABLET PO SCH ×2 (09:38→17:20)
[2020-06-03] MEDS: TICAGRELOR 90 MG TABLET (BRILINTA) PO SCH ×2 (09:38→21:10)
[2020-06-03] MEDS: LACTULOSE SYRUP 10GM/15ML (ENULOSE) 30ML UDC PO PRN (09:38)
[2020-06-03] MEDS: DOCUSATE SODIUM 100 MG (COLACE) CAP PO SCH ×2 (09:38→21:10)
[2020-06-03] MEDS: ASPIRIN E.C. 81 MG (ECOTRIN) TAB PO SCH (09:38)
[2020-06-03] MEDS: BENZONATATE 100 MG (TESSALON) CAPSULE PO SCH ×3 (09:38→21:11)
[2020-06-03] MEDS: SENNA W/DOCUSATE (SENOKOT S) TABLET PO SCH ×3 (09:39→21:10)
[2020-06-03] MEDS: polyethylene glycoL POWDER 17 GM (MIRALAX) PACK PO SCH ×2 (09:39→21:11)
--- NOTE | 2020-06-03 10:48 | PM&R Progress Note ---
Subjective HPI/CC On Admission Date Seen by Provider: Jun 03, 2020 Time Seen by Provider: 10:30 Subjective/Events-last exam 06/03/20: Pt doing pretty well Suppository placed and had a large BM Sister was visiting yesterday PCP also visited yesterday and going to the senior care soon 06/02/20: Pt will be discharged when senior care is placed Bowels moving a small amount Lactulose is given for bowels since he declines a suppository Will increase Senna to two BID 06/01/20: Confused at times Got up last night and walked to closet Dreamt he was swimming last night Refuses suppository 05/31/20: Patient in better mood BM+ Eating well 05/30/20: Patient seems to be doing better Less coughing More clear thought process 05/27 last BM 05/29/20: Cough improved Status improved Better mood 05/28/20: Pt coughing a bit still Will need 25/10 supervision so that may require senior care placement Family updated Antibiotics is now completed 05/27/20: Niece is at the bedside Overall doing very well Confusion occurs at times Plenty of family members taking care of him at home so that should be a good and safe discharge 05/26/20: Pt confused Doesnt really want me to see him today Its a struggle per Dr. Isaac also Hgb 10.4 Refusing to eat most of the time 05/25/20: Much improved Good family meeting Family at bedside RLL PNA crackles noted Cough improved with meds Decreased confusion Appetite better BM++ 05/24/20: Patient confused Sometimes willing to participate Slow processing per PCP after I conferred with her indepth about his hx Incontinent of urine noted Levaquin maintained for RLL PNA CXR reviewed Review of Systems General: Fatigue, Malaise Neurological: Weakness, Confusion Objective Exam Vital Signs Vital Signs Date Time Temp Pulse Resp B/P (MAP) Pulse Ox O2 Delivery O2 Flow Rate FiO2 06/03/20 21:15 Room Air 06/03/20 17:18 61 18 119/59 (79) 97 06/03/20 16:00 36.6 Capillary Refill : Less Than 3 Seconds General Appearance: No Apparent Distress, Chronically ill HEENT: PERRL/EOMI, Pharynx Normal Neck: Full Range of Motion, Normal Inspection, Non Tender, Supple Respiratory: Chest Non Tender, Lungs Clear, Normal Breath Sounds, No Accessory Muscle Use, No Respiratory Distress Cardiovascular: Regular Rate, Rhythm, No Edema, No JVD, Normal Peripheral Pulses Gastrointestinal: Normal Bowel Sounds, Non Tender, Soft Rectal: Deferred Back: Normal Inspection Extremity: Normal Capillary Refill, Normal Inspection, Non Tender, No Calf Tenderness, No Pedal Edema Neurologic/Psychiatric: Alert, Oriented x3, No Motor/Sensory Deficits, Normal Mood/Affect Skin: Normal Color, Warm/Dry Lymphatic: No Adenopathy Results/Procedures Lab Patient resulted labs reviewed. FIM Transfers Therapy Code Descriptions/Definitions Functional [place] Measure: 0=Not Assessed/NA 4=Minimal Assistance 1=Total Assistance 5=Supervision or Setup 2=Maximal Assistance 6=Modified [place] 3=Moderate Assistance 7=Complete IndependenceSCALE: Activities may be completed with or without assistive devices. 8-Qkpmnsfmyw-hwoaqgy completes the activity by him/herself with no assistance from a helper. 5-Set-up or Clean-up Assistance-helper sets up or cleans up; patient completes activity. [place] assists only prior to or following the activity. 4-Supervision or Touching Assistance-helper provides verbal cues and/or touching/steadying and/or contact guard assistance as patient completes activity. Assistance may be provided throughout the activity or intermittently. 3-Partial/Moderate Assistance-helper does LESS THAN HALF the effort. [place] lifts, holds or supports trunk or limbs, but provides less than half the effort. 2-Substantial/Maximal Assistance-helper does MORE THAN HALF the effort. [place] lifts or holds trunk or limbs and provides more than half the effort. 7-Iuhwsyfsf-xfpduh does ALL the effort. Patient does none of the effort to complete the activity. Or, the assistance of 2 or more helpers is required for the patient to complete the activity. If activity was not attempted, code reason: 7-Patient Refused. 9-Not Applicable-not attempted and the patient did not perform the activity before the current illness, exacerbation or injury. 10-Not Attempted due to Environmental Limitations-(lack of equipment, weather restraints, etc.). 88-Not Attempted due to Medical Conditions or Safety Concerns. Roll Left to Right (QC): 4 Sit to Lying (QC): 5 Sit to Stand (QC): 4 Chair/Uzv-xe-Putbg Xfer(QC): 4 Car Transfer (QC): 4 Gait Training Does the Patient Walk?: Yes Distance: 300'x2 Walk 10 feet (QC): 4 Walk 50 ft with 2 Turns(QC): 4 Walk 150 ft (QC): 4 Walking 10ft/uneven surface-QC: 7 Gait Persons Needed: 1 Gait Assistive Device: FWW Wheelchair Training Does the Pt Use a Wheelchair?: Yes Wheel 50 ft with 2 turns (QC): 3 Wheel 150 ft (QC): 7 Type of Wheelchair: Manual (3) Stair Training Stair Training: Handrails/: 2 handrails #of Steps: 4 1 Step (curb) (QC): 7 4 Steps (QC): 3 12 Steps (QC): 88 Stairs: Pattern: Reciprocal Balance Picking up an Object (QC): 7 ADL-Treatment Eating (QC): 6 Oral Hygiene (QC): 4 (SBA standing at sink to complete oral care.) Bathing Location: L Arm, R Arm, Chest Shower/Bathe Self (QC): 4 Upper Body Dressing (QC): 3 Lower Body Dressing (QC): 3 (After set up, pt able to don R LE into pant leg then assist to thread L LE into correct pant leg, pt able to complete rest by self.) On/Off Footwear (QC): 3 (Pt able to don one shoe then requires assistance to problem solve why other shoe won't go on.) Toileting Hygiene (QC): 4 (SBA to cleanse and manage clothing.) Toilet Transfer (QC): 4 (CGA to transfer with FWW and BSC.) Assessment/Plan Assessment and Plan Assess & Plan/Chief Complaint Assessment: Critical illness myopathy s/p cardiogenic shock CKD Stage 4 HTN DM Confusion Cebrovascular disease on MRI Fall risk Plan: IRF protocol Monitor closely Monitor creat Cardiology consultation 05/24/20: Fall risk Incontinence Monitor confusion PCP meeting tomorrow with family 05/25/20: Improved status today Improved strength Less confusion 05/26/20: Monitor BP Fall risk 05/27/20: Confusion noted Appears there are plenty of family members able to check in on him 05/28/20: Needs NH or family with 25/10 supervision 05/29/20: Monitor BP Cough improved 05/30/20: SW with family today In-depth discussion regarding home dispo 05/31/20: Monitor closely Fall risk 06/01/20: Monitor closely Check labs in am Needs NHP 06/02/20: Monitor BP and BS NHP at [place] 06/03/20: No major changes NHP at [place] (1) Pneumonia Status: Acute Assessment & Plan: PT SHOULD BE FINISHING LEVAQUIN THIS WEEK, SYMPTOMS IMPROVED. Qualifiers: Laterality: right Lung location: lower lobe of lung (2) Acute on chronic kidney failure Assessment & Plan: CONTINUE TO AVOID NEPHROTOXIC AGENTS WILL SEE DR. PORTILLO OUTPATIENT IN FOLLOW UP. Qualifiers: Acute renal failure type: unspecified Chronic kidney disease stage: stage 4 (severe) Qualified Codes: N17.9 - Acute kidney failure, unspecified; N18.4 - Chronic kidney disease, stage 4 (severe) (3) Acute and subacute ischemic heart disease Assessment & Plan: PT HAS EJECTION FRACTION OF 15% ON EVALUATION AT [facility]. PT CONTINUES TO NEED THERAPY FOR STRENGTHENING, HE HAS REQUESTED THAT HE GOES TO SEE DR. ALDANA IN FOLLOW UP. (4) DMII (diabetes mellitus, type 2) Assessment & Plan: PT ON LEVEMIR 5 UNITS BID AND ENCOURAGE HIM TO HAVE A SNACK OF AT LEAST 15 GRAMS OF PROTEIN AT HS. BLOOD GLUCOSE HIGHER THIS MORNING, MONITOR BLOOD GLUCOSE FINGER STICKS OVER THE NEXT FEW DAYS TO SEE IF WE NEED TO INCREASE LEVEMIR BACK UP TO 6 UNITS BID. Qualifiers: Diabetes mellitus fpc insulin use: with long term care administrator use Diabetes mellitus complication status: with kidney complications Diabetes mellitus complication detail: with chronic kidney disease Chronic kidney disease stage: stage 4 (severe) Qualified Codes: E11.22 - Type 2 diabetes mellitus with diabetic chronic kidney disease; N18.4 - Chronic kidney disease, stage 4 (severe); Z79.4 - nursing home (current) use of insulin (5) Cancer of prostate Status: Chronic Assessment & Plan: CONTINUE WITH SUPPORTIVE CARE (6) CKD (chronic kidney disease) stage 4, GFR 15-29 ml/min (7) Cerebrovascular disease Assessment & Plan: STATUS POST EMBOLIC STROKE - PT NEEDS THERAPY FOR STRENGTHENING AND WILL NEED OUTPATIENT THERAPY ON DISCHARGE. (8) S/P coronary artery stent placement (9) BPH (benign prostatic hyperplasia) Qualifiers: Lower urinary tract symptom presence: symptoms present Lower urinary tract symptom detail: urinary frequency Qualified Codes: N40.1 - Benign prostatic hyperplasia with lower urinary tract symptoms; R35.0 - Frequency of micturition (10) Cardiomyopathy Qualifiers: Cardiomyopathy type: ischemic Qualified Codes: I25.5 - Ischemic cardiomyopathy GHADA SANDOVAL DO Jun 03, 2020 10:48
--- NOTE | 2020-06-03 11:56 | Physical Therapy Daily Note ---
PT Daily Note-Current Subjective Patient in bed pre tx, agrees to PT after encouragement, has no complaints of pain, will be co-treating with OT due to poor patient safety awareness, endurance, coordinate UE and LE during activity, safety and reduce risk of falls. Appearance Patient in recliner post tx with nurse call, OT to continue for a bit. Mental Status Patient Orientation: Person, Confused, Place, Situation Transfers SCALE: Activities may be completed with or without assistive devices. 9-Dlhqgrnxxc-mdbrowg completes the activity by him/herself with no assistance from a helper. 5-Set-up or Clean-up Assistance-helper sets up or cleans up; patient completes activity. [place] assists only prior to or following the activity. 4-Supervision or Touching Assistance-helper provides verbal cues and/or touching/steadying and/or contact guard assistance as patient completes activity. Assistance may be provided throughout the activity or intermittently. 3-Partial/Moderate Assistance-helper does LESS THAN HALF the effort. [place] lifts, holds or supports trunk or limbs, but provides less than half the effort. 2-Substantial/Maximal Assistance-helper does MORE THAN HALF the effort. [place] lifts or holds trunk or limbs and provides more than half the effort. 6-Xglwgobyi-hgwxff does ALL the effort. Patient does none of the effort to complete the activity. Or, the assistance of 2 or more helpers is required for the patient to complete the activity. If activity was not attempted, code reason: 7-Patient Refused. 9-Not Applicable-not attempted and the patient did not perform the activity before the current illness, exacerbation or injury. 10-Not Attempted due to Environmental Limitations-(lack of equipment, weather restraints, etc.). 88-Not Attempted due to Medical Conditions or Safety Concerns. Roll Left & Right (QC): 4 Lying to Sitting/Side of Bed(Q: 4 Sit to Stand (QC): 4 Chair/Lcj-mg-Nxngh Xfer(QC): 4 Patient dresses without assist but very slowly and cues to stay on task. Weight Bearing Right Lower Extremity: Right Full Weight Bearing Left Lower Extremity: Left Full Weight Bearing Gait Training Distance: 300'x2 Walk 10 feet (QC): 4 Walk 50 ft with 2 Turns(QC): 4 Walk 150 ft (QC): 4 Gait Assistive Device: FWW slow but steady ambulation Exercises NuStep Minutes: 15 NuStep Workload: 4 Neuromuscular balance activity walking and picking up cones from the floor Treatments PT performed bed mobility and transfers, ambulation, safety and positioning during dressing, balance assist with balance activity, LE exercise, OT performed UE exercise, balance activity, UE positioning and safety during activity, dressing. Assessment Current Status: Fair Progress improved balance during ambulation PT Short Term Goals Short Term Goals Time Frame: May 30, 2020 Roll Left & Right: 4 Sit to lyin Lying to sitting on side of be: 4 Sit to stand: 4 Chair/avb-ei-wpfnw transfer: 4 Toilet transfer: 4 Walk 10 feet: 4 PT Senior Care Goals Senior Care Goals PT Senior Care Goals Time Frame: Jun 13, 2020 Roll Left & Right (QC): 4 (SBA) Sit to Lying (QC): 4 (SBA) Lying-Sitting on Side/Bed(QC): 4 (SBA) Sit to Stand (QC): 4 (SBA) Chair/Pox-cf-Tayeo Xfer(QC): 4 (SBA) Toilet Transfer (QC): 4 (SBA) Car Transfer (QC): 4 (SBA) Does the Patient Walk: Yes Walk 10 feet (QC): 4 (SBA) Walk 50ft with 2 Turns (QC): 4 (SBA) Walk 150 ft (QC): 4 (SBA) Walking 10ft on Uneven Surface: 4 (SBA) 1 Step (curb) (QC): 4 (CGA) 4 Steps (QC): 4 (CGA) 12 Steps (QC): 4 (CGA) Picking up an Object (QC): 4 (CGA) Wheel 50 feet with 2 turns (QC: 6 Wheel 150 feet: 6 PT Plan Problem List Problem List: Activity Tolerance, Functional Strength, Safety, Balance, Gait, Transfer, Bed Mobility, ROM Treatment/Plan Treatment Plan: Continue Plan of Care Treatment Plan: Bed Mobility, Education, Functional Activity Yuri, Functional Strength, Group Therapy, Gait, Safety, Therapeutic Exercise, Transfers Treatment Duration: Jun 13, 2020 Frequency: At least 5 of 7 days/Wk (IRF) Estimated Hrs Per Day: 1.5 hours per day Patient and/or Family Agrees t: Yes Safety Risks/Education Patient Education: Gait Training, Transfer Techniques, Correct Positioning, Safety Issues Teaching Recipient: Patient Teaching Methods: Demonstration Response to Teaching: Reinforcement Needed Time/GCodes Time In: 1000 Time Out: 1100 Total Billed Treatment Time: 60 Total Billed Treatment 1 visit EX 15' FA 45' co-treated for 60' FRANK YATES PT Jun 03, 2020 11:56
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
--- NOTE | 2020-06-03 13:19 | Speech Therapy Daily Note ---
Speech Daily Progress Note Subjective Date Seen by Provider: Jun 03, 2020 Time Seen by Provider: 00:30 Patient was resting in his bed waiting on his lunch when I entered his room. Objective Patient completed a series of "what's missing?" cards related to various scenarios he may encounter at 80% with minimal cues. Assessment Assessment Current Status: Good Progress Treatment Plan Continue Plan of Care Speech Short Term Goals Short Term Goals Short Term Goals 1) Patient will complete memory tasks related to his daily needs at 80% or greater with minimal cues. 2) Patient will complete problem solving tasks related to his daily needs at 80% or greater with minimal cues. 3) Patient will complete safety awareness tasks related to his daily needs at 80% or greater with minimal cues. Speech Monotype Caster Goals Monotype Caster Goals Patient will improve cognitive-communication skills in order to improve safety and require minimal assist. Speech-Plan Patient/Family Goals Patient/Family Goals: Patient continues to plan on returning to his home where he lives alone. He does have family support, however it may not be the safest discharge to return to his home. Treatment Plan Speech Therapy Treatment Plan: Continue Plan of Care Treatment Duration: Jun 06, 2020 Frequency: 4 times per week (Patient will receive skilled ST 4-5x per week) Estimated Hrs Per Day: .5 hour per day Rehab Potential: Poor Barriers to Learning: Patient's recent decline in functional status. Pt/Family Agrees to Plan: Yes Safety Risks/Education Teaching Recipient: Patient Teaching Methods: Demonstration, Discussion Response to Teaching: Verbalize Understanding, Return Demonstration Education Topics Provided: Continued safety within his room and upon discharge regardless of the location Time Speech Therapy Time In: 11:30 Speech Therapy Time Out: 12:00 Total Billed Time: 30 Billed Treatment Time 1, OLENA Brothers Jun 03, 2020 13:19
--- NOTE | 2020-06-03 14:55 | Physical Therapy Daily Note ---
PT Daily Note-Current Subjective Patient in bed pre tx, agrees to PT, has no complaints of pain. Appearance Patient in bed post tx with nurse call, phone, tray, all needs met, bed alarm on. Mental Status Patient Orientation: Person, Confused, Place, Situation Transfers SCALE: Activities may be completed with or without assistive devices. 1-Sqskwrfahw-nqbqlsb completes the activity by him/herself with no assistance from a helper. 5-Set-up or Clean-up Assistance-helper sets up or cleans up; patient completes activity. Alligator assists only prior to or following the activity. 4-Supervision or Touching Assistance-helper provides verbal cues and/or touching/steadying and/or contact guard assistance as patient completes activity. Assistance may be provided throughout the activity or intermittently. 3-Partial/Moderate Assistance-helper does LESS THAN HALF the effort. Alligator lifts, holds or supports trunk or limbs, but provides less than half the effort. 2-Substantial/Maximal Assistance-helper does MORE THAN HALF the effort. Alligator lifts or holds trunk or limbs and provides more than half the effort. 4-Uvyxfdsle-tgppwl does ALL the effort. Patient does none of the effort to complete the activity. Or, the assistance of 2 or more helpers is required for the patient to complete the activity. If activity was not attempted, code reason: 7-Patient Refused. 9-Not Applicable-not attempted and the patient did not perform the activity before the current illness, exacerbation or injury. 10-Not Attempted due to Environmental Limitations-(lack of equipment, weather restraints, etc.). 88-Not Attempted due to Medical Conditions or Safety Concerns. Roll Left & Right (QC): 6 Sit to Lying (QC): 6 Lying to Sitting/Side of Bed(Q: 6 Sit to Stand (QC): 5 Chair/Amh-je-Msgth Xfer(QC): 4 Patient put on and took off his shoes himself, SBA but takes a long time. Weight Bearing Right Lower Extremity: Right Full Weight Bearing Left Lower Extremity: Left Full Weight Bearing Gait Training Distance: 150'x2 Walk 10 feet (QC): 4 Walk 50 ft with 2 Turns(QC): 4 Walk 150 ft (QC): 4 Gait Assistive Device: FWW slow but steady ambulation Treatments dressing, bed mobility and transfers, ambulation Assessment Current Status: Fair Progress improving motivation and participation PT Short Term Goals Short Term Goals Time Frame: May 30, 2020 Roll Left & Right: 4 Sit to lyin Lying to sitting on side of be: 4 Sit to stand: 4 Chair/bjk-co-awpob transfer: 4 Toilet transfer: 4 Walk 10 feet: 4 PT Senior Living Goals Senior Living Goals PT Supervisor [employer] Goals Time Frame: Jun 13, 2020 Roll Left & Right (QC): 4 (SBA) Sit to Lying (QC): 4 (SBA) Lying-Sitting on Side/Bed(QC): 4 (SBA) Sit to Stand (QC): 4 (SBA) Chair/Xyi-aw-Wgleo Xfer(QC): 4 (SBA) Toilet Transfer (QC): 4 (SBA) Car Transfer (QC): 4 (SBA) Does the Patient Walk: Yes Walk 10 feet (QC): 4 (SBA) Walk 50ft with 2 Turns (QC): 4 (SBA) Walk 150 ft (QC): 4 (SBA) Walking 10ft on Uneven Surface: 4 (SBA) 1 Step (curb) (QC): 4 (CGA) 4 Steps (QC): 4 (CGA) 12 Steps (QC): 4 (CGA) Picking up an Object (QC): 4 (CGA) Wheel 50 feet with 2 turns (QC: 6 Wheel 150 feet: 6 PT Plan Problem List Problem List: Activity Tolerance, Functional Strength, Safety, Balance, Gait, Transfer, Bed Mobility, ROM Treatment/Plan Treatment Plan: Continue Plan of Care Treatment Plan: Bed Mobility, Education, Functional Activity Yuri, Functional Strength, Group Therapy, Gait, Safety, Therapeutic Exercise, Transfers Treatment Duration: Jun 13, 2020 Frequency: At least 5 of 7 days/Wk (IRF) Estimated Hrs Per Day: 1.5 hours per day Patient and/or Family Agrees t: Yes Safety Risks/Education Patient Education: Gait Training, Transfer Techniques, Correct Positioning, Safety Issues Teaching Recipient: Patient Teaching Methods: Demonstration, Discussion Response to Teaching: Reinforcement Needed Time/GCodes Time In: 1440 Time Out: 1455 Total Billed Treatment Time: 15 Total Billed Treatment 1 visit GT 15' FRANK YATES PT Jun 03, 2020 14:55
[2020-06-03 16:00] VITALS: BP 104/59
[2020-06-03 17:18] VITALS: BP 119/59
[2020-06-03] MEDS: MELATONIN 3 MG TABLET PO SCH (21:11)
[2020-06-03] MEDS: MIRTAZAPINE 15 MG (REMERON) TAB PO SCH (21:13)
[2020-06-04] MEDS: guaiFENesin/CODEINE (ROBITUSSIN AC) 10ML UDC PO SCH ×6 (01:00→21:16)
[2020-06-04 05:58] VITALS: BP 116/58
[2020-06-04] MEDS: inSUlin ASPART (NovoLOG) 1 UNIT/0.01 ML (CHARGE PER UNIT) SC SCH ×4 (06:00→21:00)
[2020-06-04] MEDS: CATHETER FLUSH 10 ML SYR IV SCH ×3 (06:24→21:26)
--- NOTE | 2020-06-04 07:42 | Progress Note ---
Subjective Subjective Date Seen by Provider: Jun 04, 2020 Time Seen by Provider: 07:20 Pt seen and examined. Laying in bed, NAD. Denies chest pain, abd pain, N/V, SOB. States he is feeling good today with no new issues/complaints. He is tired from not getting enough sleep due to lights/tv. Denies chest pain, N/V, abd pain. No other concerns/complaints. Review of Systems General: Fatigue, Malaise HEENT: No Head Aches, No Visual Changes Pulmonary: No Dyspnea, No Cough Cardiovascular: No: Chest Pain, Palpitations, Lt Headedness Gastrointestinal: Constipation; No: Nausea, Vomiting, Abdominal Pain, Diarrhea Genitourinary: No Dysuria, No Incontinence, No Hematuria Musculoskeletal: No: back pain Neurological: Weakness, Confusion All Other Systems Reviewed All Other Systems Reviewed: Yes Objective Exam Vital Signs Vital Signs - First Documented 05/29/20 05:33 Temp 36.9 Pulse 88 Resp 18 B/P (MAP) 126/61 (82) Pulse Ox 100 O2 Delivery Room Air Capillary Refill : Less Than 3 Seconds General Appearance: No Apparent Distress, Chronically ill Eyes: Bilateral Eye Normal Inspection, Bilateral Eye PERRL, Bilateral Eye EOMI HEENT: PERRL/EOMI, Pharynx Normal Neck: Full Range of Motion, Normal Inspection, Non Tender, Supple Respiratory: Chest Non Tender, Lungs Clear, Normal Breath Sounds, No Accessory Muscle Use, No Respiratory Distress Cardiovascular: Regular Rate, Rhythm, No Edema, No JVD, Normal Peripheral Pulses Gastrointestinal: Normal Bowel Sounds, Non Tender, Soft Rectal: Deferred Back: Normal Inspection Extremity: Normal Capillary Refill, Normal Inspection, Non Tender, No Calf Tenderness, No Pedal Edema Neurologic/Psychiatric: Alert, Oriented x3, No Motor/Sensory Deficits, Normal Mood/Affect Skin: Normal Color, Warm/Dry Lymphatic: No Adenopathy Results Lab Laboratory Tests 06/03/20 16:23: Glucometer 196H 06/03/20 20:08: Glucometer 126H 06/04/20 05:03: Glucometer 135H Assessment/Plan Assessment/Plan Assessment and Plan Embolic stroke Acute on chronic kidney failure NSTEMI w/ stent placement Ischemic heart disease T2DM BPH Constipation Pt improving with PT/OT with good progression and participation Constipation improving with bowel regimen and suppository prn Social work talking with family about NH placement; family visited [facility] and will let us know which suit pt best D/C to custodial later this week Continue to monitor VS, changes in mental status Problems: (1) Pneumonia Qualifiers: Assessment & Plan: PT COMPLETED ANTIBIOTIC COURSE SYMPTOMS RESOLVED. (2) Acute on chronic kidney failure Qualifiers: Qualified Codes: N17.9 - Acute kidney failure, unspecified; N18.4 - Chronic kidney disease, stage 4 (severe) Assessment & Plan: CONTINUE TO AVOID NEPHROTOXIC AGENTS WILL SEE DR. PORTILLO OUTPATIENT IN FOLLOW UP. (3) Acute and subacute ischemic heart disease Assessment & Plan: PT HAS EJECTION FRACTION OF 15% ON EVALUATION AT [facility]. PT CONTINUES TO NEED THERAPY FOR STRENGTHENING, HE HAS REQUESTED THAT HE GOES TO SEE DR. ALDANA IN FOLLOW UP. (4) DMII (diabetes mellitus, type 2) Qualifiers: Qualified Codes: E11.22 - Type 2 diabetes mellitus with diabetic chronic kidney disease; N18.4 - Chronic kidney disease, stage 4 (severe); Z79.4 - director long term care (current) use of insulin Assessment & Plan: PT ON LEVEMIR 5 UNITS BID AND ENCOURAGE HIM TO HAVE A SNACK OF AT LEAST 15 GRAMS OF PROTEIN AT HS. BLOOD GLUCOSE HIGHER THIS MORNING, MONITOR BLOOD GLUCOSE FINGER STICKS OVER THE NEXT FEW DAYS TO SEE IF WE NEED TO INCREASE LEVEMIR BACK UP TO 6 UNITS BID. (5) Cancer of prostate Assessment & Plan: CONTINUE WITH SUPPORTIVE CARE (6) CKD (chronic kidney disease) stage 4, GFR 15-29 ml/min (7) Cerebrovascular disease Assessment & Plan: STATUS POST EMBOLIC STROKE - PT NEEDS THERAPY FOR STRENGTHENING AND WILL NEED OUTPATIENT THERAPY ON DISCHARGE. (8) S/P coronary artery stent placement (9) BPH (benign prostatic hyperplasia) Qualifiers: Qualified Codes: N40.1 - Benign prostatic hyperplasia with lower urinary tract symptoms; R35.0 - Frequency of micturition (10) Cardiomyopathy Qualifiers: Qualified Codes: I25.5 - Ischemic cardiomyopathy Supervisory-Addendum Brief Verification & Attestation Participated in pt care: history, MDM, physical Personally performed: exam, history, MDM, supervision of care Care discussed with: Medical Student Procedures: n/a Results interpretation: Verified all documentation AGREE WITH DOCUMENTATION FROM MEDICAL STUDENT, PT IS PROGRESSING WITH PHYSICAL THERAPY, HOWEVER, STAFF DOES NOT FEEL THAT NOMAN IS SAFE TO RETURN TO HOME, FAMILY CANNOT AFFORD CONTINUAL CAREGIVERS, AND THEY HAVE AGREED TO PLACEMENT. FAMILY IS PUSHING FOR PATIENT TO HAVE ANTIDEPRESSANT WELL APPETITE STIMULANT THERAPY - WILL GIVE RX FOR REMERON 15MG HS TO SEE IF THIS WILL BENEFIT PATIENT. NOMAN INDICATED THAT HE WOULD BE WILLING TO CONSIDER [facility] ADMISSION. CIRILO SHARPE MED STUDENT Jun 04, 2020 07:42 RANDI VIGIL MD Jun 04, 2020 07:55
[2020-06-04 08:25] LABS: HEMOGLOBIN 10.1 g/dL (13.3-17.7); MEAN PLATELET VOLUME 9.9 fL (9.0-12.2); WHITE BLOOD COUNT 10.3 10^3/uL (4.3-11.0)
[2020-06-04 08:37] LABS: ALBUMIN 2.9 GM/DL (3.2-4.5); POTASSIUM 4.1 MMOL/L (3.6-5.0)
[2020-06-04 08:38] LABS: CALCIUM 8.4 MG/DL (8.5-10.1)
[2020-06-04 08:39] LABS: TOTAL PROTEIN 5.9 GM/DL (6.4-8.2)
[2020-06-04] MEDS: TICAGRELOR 90 MG TABLET (BRILINTA) PO SCH ×2 (08:39→21:16)
[2020-06-04] MEDS: CARVEDILOL 3.125 MG (COREG) TABLET PO SCH ×2 (08:39→18:32)
[2020-06-04] MEDS: ASPIRIN E.C. 81 MG (ECOTRIN) TAB PO SCH (08:39)
[2020-06-04] MEDS: DOCUSATE SODIUM 100 MG (COLACE) CAP PO SCH ×2 (08:40→21:15)
[2020-06-04] MEDS: BENZONATATE 100 MG (TESSALON) CAPSULE PO SCH ×3 (08:40→21:15)
[2020-06-04] MEDS: SENNA W/DOCUSATE (SENOKOT S) TABLET PO SCH ×2 (08:40→21:15)
[2020-06-04] MEDS: polyethylene glycoL POWDER 17 GM (MIRALAX) PACK PO SCH ×2 (08:40→21:16)
[2020-06-04 08:41] LABS: BILIRUBIN,TOTAL 0.8 MG/DL (0.1-1.0)
[2020-06-04 08:43] LABS: CREATININE SERUM 2.28 MG/DL (0.60-1.30)
--- NOTE | 2020-06-04 09:16 | PM&R Progress Note ---
Subjective HPI/CC On Admission Date Seen by Provider: Jun 04, 2020 Time Seen by Provider: 09:15 Subjective/Events-last exam 06/04/20: Pt doing pretty well Ready for alf at [facility] on Tuesday Decreased appetite but does eat every once in awhile Sugar is 135 Dr. Isaac saw Pt today 06/03/20: Pt doing pretty well Suppository placed and had a large BM Sister was visiting yesterday PCP also visited yesterday and going to the alf soon 06/02/20: Pt will be discharged when alf is placed Bowels moving a small amount Lactulose is given for bowels since he declines a suppository Will increase Senna to two BID 06/01/20: Confused at times Got up last night and walked to closet Dreamt he was swimming last night Refuses suppository 05/31/20: Patient in better mood BM+ Eating well 05/30/20: Patient seems to be doing better Less coughing More clear thought process 05/27 last BM 05/29/20: Cough improved Status improved Better mood 05/28/20: Pt coughing a bit still Will need 25/10 supervision so that may require alf placement Family updated Antibiotics is now completed 05/27/20: Niece is at the bedside Overall doing very well Confusion occurs at times Plenty of family members taking care of him at home so that should be a good and safe discharge 05/26/20: Pt confused Doesnt really want me to see him today Its a struggle per Dr. Isaac also Hgb 10.4 Refusing to eat most of the time 05/25/20: Much improved Good family meeting Family at bedside RLL PNA crackles noted Cough improved with meds Decreased confusion Appetite better BM++ 05/24/20: Patient confused Sometimes willing to participate Slow processing per PCP after I conferred with her indepth about his hx Incontinent of urine noted Levaquin maintained for RLL PNA CXR reviewed Review of Systems General: Fatigue Neurological: Weakness, Incoordination, Confusion Objective Exam Vital Signs Vital Signs Date Time Temp Pulse Resp B/P (MAP) Pulse Ox O2 Delivery O2 Flow Rate FiO2 06/04/20 21:25 Room Air 06/04/20 18:20 37.1 74 18 124/59 (80) 100 Capillary Refill : Less Than 3 Seconds General Appearance: No Apparent Distress, Chronically ill HEENT: PERRL/EOMI, Pharynx Normal Neck: Full Range of Motion, Normal Inspection, Non Tender, Supple Respiratory: Chest Non Tender, Lungs Clear, Normal Breath Sounds, No Accessory Muscle Use, No Respiratory Distress Cardiovascular: Regular Rate, Rhythm, No Edema, No JVD, Normal Peripheral Pulses Gastrointestinal: Normal Bowel Sounds, Non Tender, Soft Rectal: Deferred Back: Normal Inspection Extremity: Normal Capillary Refill, Normal Inspection, Non Tender, No Calf Tenderness, No Pedal Edema Neurologic/Psychiatric: Alert, Oriented x3, No Motor/Sensory Deficits, Normal Mood/Affect Skin: Normal Color, Warm/Dry Lymphatic: No Adenopathy Results/Procedures Lab Laboratory Tests 06/04/20 08:10 Patient resulted labs reviewed. FIM Transfers Therapy Code Descriptions/Definitions Functional [place] Measure: 0=Not Assessed/NA 4=Minimal Assistance 1=Total Assistance 5=Supervision or Setup 2=Maximal Assistance 6=Modified [place] 3=Moderate Assistance 7=Complete IndependenceSCALE: Activities may be completed with or without assistive devices. 7-Nwioygvqkg-zguqtbm completes the activity by him/herself with no assistance from a helper. 5-Set-up or Clean-up Assistance-helper sets up or cleans up; patient completes activity. [place] assists only prior to or following the activity. 4-Supervision or Touching Assistance-helper provides verbal cues and/or touching/steadying and/or contact guard assistance as patient completes activity. Assistance may be provided throughout the activity or intermittently. 3-Partial/Moderate Assistance-helper does LESS THAN HALF the effort. [place] lift s, holds or supports trunk or limbs, but provides less than half the effort. 2-Substantial/Maximal Assistance-helper does MORE THAN HALF the effort. [place] lifts or holds trunk or limbs and provides more than half the effort. 3-Jfoplkqsl-gnbwkb does ALL the effort. Patient does none of the effort to complete the activity. Or, the assistance of 2 or more helpers is required for the patient to complete the activity. If activity was not attempted, code reason: 7-Patient Refused. 9-Not Applicable-not attempted and the patient did not perform the activity before the current illness, exacerbation or injury. 10-Not Attempted due to Environmental Limitations-(lack of equipment, weather restraints, etc.). 88-Not Attempted due to Medical Conditions or Safety Concerns. Roll Left to Right (QC): 6 Sit to Lying (QC): 6 Sit to Stand (QC): 5 Chair/Ixr-os-Oivof Xfer(QC): 4 Car Transfer (QC): 4 Gait Training Does the Patient Walk?: Yes Distance: 150'x2 Walk 10 feet (QC): 4 Walk 50 ft with 2 Turns(QC): 4 Walk 150 ft (QC): 4 Walking 10ft/uneven surface-QC: 7 Gait Persons Needed: 1 Gait Assistive Device: FWW Wheelchair Training Does the Pt Use a Wheelchair?: Yes Wheel 50 ft with 2 turns (QC): 3 Wheel 150 ft (QC): 7 Type of Wheelchair: Manual (3) Stair Training Stair Training: Handrails/: 2 handrails #of Steps: 4 1 Step (curb) (QC): 7 4 Steps (QC): 3 12 Steps (QC): 88 Stairs: Pattern: Reciprocal Balance Picking up an Object (QC): 7 ADL-Treatment Eating (QC): 6 Oral Hygiene (QC): 4 (Supervision standing at sink.) Bathing Location: L Arm, R Arm, Chest Shower/Bathe Self (QC): 4 Upper Body Dressing (QC): 3 Lower Body Dressing (QC): 3 (After set up, pt able to don R LE into pant leg then assist to thread L LE into correct pant leg, pt able to complete rest by self.) On/Off Footwear (QC): 5 Toileting Hygiene (QC): 4 (SBA to cleanse and manage clothing.) Toilet Transfer (QC): 4 (CGA to transfer with FWW and BSC.) Assessment/Plan Assessment and Plan Assess & Plan/Chief Complaint Assessment: Critical illness myopathy s/p cardiogenic shock CKD Stage 4 HTN DM Confusion Cebrovascular disease on MRI Fall risk Plan: IRF protocol Monitor closely Monitor creat Cardiology consultation 05/24/20: Fall risk Incontinence Monitor confusion PCP meeting tomorrow with family 05/25/20: Improved status today Improved strength Less confusion 05/26/20: Monitor BP Fall risk 05/27/20: Confusion noted Appears there are plenty of family members able to check in on him 05/28/20: Needs NH or family with 25/10 supervision 05/29/20: Monitor BP Cough improved 05/30/20: SW with family today In-depth discussion regarding home dispo 05/31/20: Monitor closely Fall risk 06/01/20: Monitor closely Check labs in am Needs NHP 06/02/20: Monitor BP and BS NHP at DC 06/03/20: No major changes NHP at DC 06/04/20: Continues to improve Participation in therapy varies (1) Pneumonia Status: Acute Assessment & Plan: PT COMPLETED ANTIBIOTIC COURSE SYMPTOMS RESOLVED. Qualifiers: Laterality: right Lung location: lower lobe of lung (2) Acute on chronic kidney failure Assessment & Plan: CONTINUE TO AVOID NEPHROTOXIC AGENTS WILL SEE DR. PORTILLO OUTPATIENT IN FOLLOW UP. Qualifiers: Acute renal failure type: unspecified Chronic kidney disease stage: stage 4 (severe) Qualified Codes: N17.9 - Acute kidney failure, unspecified; N18.4 - Chronic kidney disease, stage 4 (severe) (3) Acute and subacute ischemic heart disease Assessment & Plan: PT HAS EJECTION FRACTION OF 15% ON EVALUATION AT [facility]. PT CONTINUES TO NEED THERAPY FOR STRENGTHENING, HE HAS REQUESTED THAT HE GOES TO SEE DR. ALDANA IN FOLLOW UP. (4) DMII (diabetes mellitus, type 2) Assessment & Plan: PT ON LEVEMIR 5 UNITS BID AND ENCOURAGE HIM TO HAVE A SNACK OF AT LEAST 15 GRAMS OF PROTEIN AT HS. BLOOD GLUCOSE HIGHER THIS MORNING, MONITOR BLOOD GLUCOSE FINGER STICKS OVER THE NEXT FEW DAYS TO SEE IF WE NEED TO INCREASE LEVEMIR BACK UP TO 6 UNITS BID. 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 insulin use: with half-way use Diabetes mellitus complication status: with kidney complications Diabetes mellitus complication detail: with chronic kidney disease Chronic kidney disease stage: stage 4 (severe) Qualified Codes: E11.22 - Type 2 diabetes mellitus with diabetic chronic kidney disease; N18.4 - Chronic kidney disease, stage 4 (severe); Z79.4 - [facility] (current) use of insulin (5) Cancer of prostate Status: Chronic Assessment & Plan: CONTINUE WITH SUPPORTIVE CARE (6) CKD (chronic kidney disease) stage 4, GFR 15-29 ml/min (7) Cerebrovascular disease Assessment & Plan: STATUS POST EMBOLIC STROKE - PT NEEDS THERAPY FOR STRENGTHENING AND WILL NEED OUTPATIENT THERAPY ON DISCHARGE. (8) S/P coronary artery stent placement (9) BPH (benign prostatic hyperplasia) Qualifiers: Lower urinary tract symptom presence: symptoms present Lower urinary tract symptom detail: urinary frequency Qualified Codes: N40.1 - Benign prostatic hyperplasia with lower urinary tract symptoms; R35.0 - Frequency of micturition (10) Cardiomyopathy Qualifiers: Cardiomyopathy type: ischemic Qualified Codes: I25.5 - Ischemic cardiomyopathy GHADA SANDOVAL DO Jun 04, 2020 09:16
--- NOTE | 2020-06-04 10:12 | Speech Therapy Daily Note ---
Speech Daily Progress Note Subjective Date Seen by Provider: Jun 04, 2020 Time Seen by Provider: 00:30 Patient was resting in his bed with his breakfast in front of him. He stated he had eaten all he wanted. It appeared that he had eaten on a few small bites. Dr. Isaac did come in and discussed with him his discharge plan of going to [facility] Tuesday to which he agreed. Objective Patient completed conversational task with clinician, Dr. Isaac and nursing with lucid answers and understanding. Assessment Assessment Current Status: Good Progress Treatment Plan Continue Plan of Care Speech Short Term Goals Short Term Goals Short Term Goals 1) Patient will complete memory tasks related to his daily needs at 80% or greater with minimal cues. 2) Patient will complete problem solving tasks related to his daily needs at 80% or greater with minimal cues. 3) Patient will complete safety awareness tasks related to his daily needs at 80% or greater with minimal cues. Speech Detention Goals Master Carpenter Goals Patient will improve cognitive-communication skills in order to improve safety and require minimal assist. Speech-Plan Patient/Family Goals Patient/Family Goals: Patientis scheduled to discharge to [facility] on Tuesday, June 06, 2020. Treatment Plan Speech Therapy Treatment Plan: Continue Plan of Care Treatment Duration: Jun 06, 2020 Frequency: 4 times per week (Patient will receive skilled ST 4-5x per week) Estimated Hrs Per Day: .5 hour per day Rehab Potential: Poor Barriers to Learning: Patient's decreased cognitive level of function. Pt/Family Agrees to Plan: Yes Safety Risks/Education Teaching Recipient: Patient Teaching Methods: Demonstration, Discussion Response to Teaching: Verbalize Understanding, Return Demonstration Education Topics Provided: Continued safety upon discharge Time Speech Therapy Time In: 08:30 Speech Therapy Time Out: 09:00 Total Billed Time: 30 Billed Treatment Time 1, OLENA Brothers Jun 04, 2020 10:12
--- NOTE | 2020-06-04 10:55 | Occupational Ther Daily Note ---
OT Current Status-Daily Note Subjective Pt alert, lying in bed. Pt appears to have given up though in the next breath stating that if he was home he would be able to do everything for himself. Pt vocalizes multiple thoughts attempting to figure out what is the best plan, he states he just does not want to make the wrong decision. Pt is agreeable to therapy though does procrastinate and has difficulty seeing the benefits of therapy. Mental Status/Objective Patient Orientation: Person Attachments: IV ADL-Treatment Pt agrees to shower. Pt takes increased time to initiate all tasks today. Pt also takes increased time ~10-20 min to don each article of clothing (may not get them on correctly) unless physical assistance is given. Supine <--> sit EOB using HOB elevated and bedrails independently. Dons shoes with increased time. Ambulates to bathroom and transfers onto toilet with SBA and verbal cues for safe transfer. Pt manipulates clothing with SBA for safety. SBA and verbal cues to transfer into shower. Pt completes shower with SBA and verbal cues to wash all areas. Pt given clothing to complete donning clothes by self. Pt threaded both legs into one leg hole and out of another leg hole with waist on thigh and was unaware that he had put them on wrong. Pt grasped towel and attempted to put it on like a shirt. Pt given the shirt placed in correct way to don and pt able to don. Assist given to thread pants over B feet then pt hiked pants over hips. Pt declined to complete oral care at this time stating that he has bad teeth and they hurt a little when he brushes them. Per clinical judgment and past sessions, pt is able to brush teeth in standing with SBA for safety. After therapy, pt lying in bed with call light/phone in reach. Safety measures in place. All needs met in room. Therapy Code Descriptions/Definitions Functional [place] Measure: 0=Not Assessed/NA 4=Minimal Assistance 1=Total Assistance 5=Supervision or Setup 2=Maximal Assistance 6=Modified [place] 3=Moderate Assistance 7=Complete IndependenceSCALE: Activities may be completed with or without assistive devices. 9-Yqzmkatjng-nraeunl completes the activity by him/herself with no assistance from a helper. 5-Set-up or Clean-up Assistance-helper sets up or cleans up; patient completes activity. [place] assists only prior to or following the activity. 4-Supervision or Touching Assistance-helper provides verbal cues and/or touching/steadying and/or contact guard assistance as patient completes activity. Assistance may be provided throughout the activity or intermittently. 3-Partial/Moderate Assistance-helper does LESS THAN HALF the effort. [place] lifts, holds or supports trunk or limbs, but provides less than half the effort. 2-Substantial/Maximal Assistance-helper does MORE THAN HALF the effort. [place] lifts or holds trunk or limbs and provides more than half the effort. 7-Alqantpdc-zcnhap does ALL the effort. Patient does none of the effort to complete the activity. Or, the assistance of 2 or more helpers is required for the patient to complete the activity. If activity was not attempted, code reason: 7-Patient Refused. 9-Not Applicable-not attempted and the patient did not perform the activity before the current illness, exacerbation or injury. 10-Not Attempted due to Environmental Limitations-(lack of equipment, weather restraints, etc.). 88-Not Attempted due to Medical Conditions or Safety Concerns. Eating (QC): 6 Oral Hygiene (QC): 4 Shower/Bathe Self (QC): 4 Upper Body Dressing (QC): 5 Lower Body Dressing (QC): 3 On/Off Footwear: 5 Toileting Hygiene (QC): 4 Toilet Transfer (QC): 4 Pt balance is improving for all ambulation and transfers. OT Short Term Goals Short Term Goals Eatin Oral hygiene: 5 Toileting hygiene: 3 Shower/bathe self: 3 Upper body dressin Lower body dressin Putting on/taking off footwear: 3 OT Fabric Separator Operator Goals Mcfp Goals Time Frame: Jun 06, 2020 Eating (QC): 6 (met) Oral Hygiene (QC): 6 (not met) Toileting Hygiene (QC): 6 (not met) Shower/Bathe Self (QC): 4 (me) Upper Body Dressing (QC): 6 (not et) Lower Body Dressing (QC): 4 (not met) On/Off Footwear (QC): 4 (met) Additional Goals: 1-Demonstrate ADL Tasks, 2-Verbalize Understanding, 3- ImproveStrength/Yuri 1=Demonstrate adherence to instructed precautions during ADL tasks. 2=Patient will verbalize/demonstrate understanding of assistive devices/modifications for ADL. 3=Patient will improve strength/tolerance for activity to enable patient to perform ADL's. OT Education/Plan Problem List/Assessment Assessment: Decreased Activ Tolerance, Decreased Safety Aware, Impaired Cognition, Impaired Self-Care Skills Discharge Recommendations Plan/Recommendations: Continue POC Treatment Plan/Plan of Care Patient would benefit from OT for education, treatment and training to promote independence in ADL's, mobility, safety and/or upper extremity function for ADL's. Plan of Care: ADL Retraining, Caregiver Training, Concurrent Therapy, Functional Mobility, Group Exercise/Act as Ind, UE Funct Exercise/Act, UE Neuromus Re-Ed/Coord, W/C Management Training Treatment Duration: Jun 06, 2020 Frequency: At least 5 of 7 days/Wk (IRF) Estimated Hrs Per Day: 1.5 hours per day Agreement: Yes Rehab Potential: Poor Time/GCodes Start Time: 09:00 Stop Time: 10:30 Total Time Billed (hr/min): 90 Billed Treatment Time 1 visit-ADL 6 (90 min) MAKENZIE COMBS Jun 04, 2020 10:55
--- NOTE | 2020-06-04 12:36 | Physical Therapy Daily Note ---
PT Daily Note-Current Subjective Pt laying Supine in bed upon arrival. Pt agrees to PT. Pt anxious about progress and what will happen after DC. Pain Location: No Pain Reported Mental Status Patient Orientation: Person, Confused, Place Transfers SCALE: Activities may be completed with or without assistive devices. 4-Eqnoydxhio-guiurpc completes the activity by him/herself with no assistance from a helper. 5-Set-up or Clean-up Assistance-helper sets up or cleans up; patient completes a ctivity. [place] assists only prior to or following the activity. 4-Supervision or Touching Assistance-helper provides verbal cues and/or touching/steadying and/or contact guard assistance as patient completes activity. Assistance may be provided throughout the activity or intermittently. 3-Partial/Moderate Assistance-helper does LESS THAN HALF the effort. [place] lifts, holds or supports trunk or limbs, but provides less than half the effort. 2-Substantial/Maximal Assistance-helper does MORE THAN HALF the effort. [place] lifts or holds trunk or limbs and provides more than half the effort. 8-Johmgfccq-asmsau does ALL the effort. Patient does none of the effort to complete the activity. Or, the assistance of 2 or more helpers is required for the patient to complete the activity. If activity was not attempted, code reason: 7-Patient Refused. 9-Not Applicable-not attempted and the patient did not perform the activity before the current illness, exacerbation or injury. 10-Not Attempted due to Environmental Limitations-(lack of equipment, weather restraints, etc.). 88-Not Attempted due to Medical Conditions or Safety Concerns. Roll Left & Right (QC): 5 Sit to Lying (QC): 5 Lying to Sitting/Side of Bed(Q: 5 Sit to Stand (QC): 5 Chair/Bvw-nb-Rsxwy Xfer(QC): 5 Toilet Transfer (QC): 5 Car Transfer (QC): 4 Pt given VC for safety for car transfer as pt attempts to step in instead of enter sitting. Weight Bearing Right Lower Extremity: Right Full Weight Bearing Left Lower Extremity: Left Full Weight Bearing Gait Training Does the Patient Walk?: Yes Distance: 150' Walk 10 feet (QC): 4 Walk 50 ft with 2 Turns(QC): 4 Walk 150 ft (QC): 4 Walking 10ft/uneven surface-QC: 4 Gait Persons Needed: 1 Gait Assistive Device: FWW Stair Training Stair Training: Handrails/: 2 handrails #of Steps: 4 1 Step (curb) (QC): 4 4 Steps (QC): 4 Stairs: Pattern: Reciprocal Balance Picking up an Object (QC): 88 Special Test Comments Pt due to balance doesn't attempt but will use custom wood stair builder at home. Treatments Pt completes QC scoring items listed above including transfers, ambulation and stairs. Pt returns to room at end of tx with all needs met, call light in hand. [id number]- Pt standing with Nurse upon arrival. Pt ambulates in hallway before returning to room. Pt returns to bed to rest with all needs met, call light in hand & SW present. Assessment Current Status: Fair Progress Pt displays confusion during tx. Pt needs VC for safety but does not always follow. PT Short Term Goals Short Term Goals Time Frame: May 30, 2020 Roll Left & Right: 4 Sit to lyin Lying to sitting on side of be: 4 Sit to stand: 4 Chair/vak-zm-cxlhd transfer: 4 Toilet transfer: 4 Walk 10 feet: 4 PT Half-Way Goals [place] Artist Goals PT [place]azier Artist Goals Time Frame: Jun 13, 2020 Roll Left & Right (QC): 4 (SBA) Sit to Lying (QC): 4 (SBA) Lying-Sitting on Side/Bed(QC): 4 (SBA) Sit to Stand (QC): 4 (SBA) Chair/Uml-qt-Yxhfn Xfer(QC): 4 (SBA) Toilet Transfer (QC): 4 (SBA) Car Transfer (QC): 4 (SBA) Does the Patient Walk: Yes Walk 10 feet (QC): 4 (SBA) Walk 50ft with 2 Turns (QC): 4 (SBA) Walk 150 ft (QC): 4 (SBA) Walking 10ft on Uneven Surface: 4 (SBA) 1 Step (curb) (QC): 4 (CGA) 4 Steps (QC): 4 (CGA) 12 Steps (QC): 4 (CGA) Picking up an Object (QC): 4 (CGA) Wheel 50 feet with 2 turns (QC: 6 Wheel 150 feet: 6 PT Plan Problem List Problem List: Activity Tolerance Treatment/Plan Treatment Plan: Continue Plan of Care Treatment Plan: Bed Mobility, Education, Functional Activity Yuri, Functional Strength, Group Therapy, Gait, Safety, Therapeutic Exercise, Transfers Treatment Duration: Jun 13, 2020 Frequency: At least 5 of 7 days/Wk (IRF) Estimated Hrs Per Day: 1.5 hours per day Patient and/or Family Agrees t: Yes Safety Risks/Education Patient Education: Gait Training, Transfer Techniques, Correct Positioning, Safety Issues Teaching Recipient: Patient Teaching Methods: Discussion Response to Teaching: Reinforcement Needed Time/GCodes Time In: 1115 Time Out: 1400 Total Billed Treatment Time: 60 Total Billed Treatment 1, FA x2 (30m), GT (15m) [id number]- 1, GT (15m) PAULO CASTAÑEDA PTA Jun 04, 2020 12:36
[2020-06-04 18:20] VITALS: BP 124/59
[2020-06-04] MEDS: MIRTAZAPINE 15 MG (REMERON) TAB PO SCH (21:15)
[2020-06-04] MEDS: MELATONIN 3 MG TABLET PO SCH (21:16)
[2020-06-05] MEDS: guaiFENesin/CODEINE (ROBITUSSIN AC) 10ML UDC PO SCH ×6 (01:00→21:48)
[2020-06-05 05:38] VITALS: BP 131/58
[2020-06-05] MEDS: inSUlin ASPART (NovoLOG) 1 UNIT/0.01 ML (CHARGE PER UNIT) SC SCH ×4 (05:43→21:18)
[2020-06-05] MEDS: CATHETER FLUSH 10 ML SYR IV SCH ×3 (06:10→21:49)
[2020-06-05] MEDS: TICAGRELOR 90 MG TABLET (BRILINTA) PO SCH ×2 (08:00→21:48)
[2020-06-05] MEDS: BENZONATATE 100 MG (TESSALON) CAPSULE PO SCH ×3 (08:00→21:47)
[2020-06-05] MEDS: ASPIRIN E.C. 81 MG (ECOTRIN) TAB PO SCH (08:00)
[2020-06-05] MEDS: polyethylene glycoL POWDER 17 GM (MIRALAX) PACK PO SCH ×2 (08:00→21:29)
[2020-06-05] MEDS: SENNA W/DOCUSATE (SENOKOT S) TABLET PO SCH ×2 (08:00→21:48)
[2020-06-05] MEDS: CARVEDILOL 3.125 MG (COREG) TABLET PO SCH ×2 (08:00→17:57)
[2020-06-05] MEDS: DOCUSATE SODIUM 100 MG (COLACE) CAP PO SCH ×2 (08:00→21:47)
--- NOTE | 2020-06-05 10:02 | Physical Therapy Daily Note ---
PT Daily Note-Current Subjective Pt sitting in recliner upon arrival. Pt agrees to PT. Pain Location: No Pain Reported Mental Status Patient Orientation: Person, Confused, Place Transfers SCALE: Activities may be completed with or without assistive devices. 7-Qczcdigzlg-nbmxewj completes the activity by him/herself with no assistance from a helper. 5-Set-up or Clean-up Assistance-helper sets up or cleans up; patient completes activity. [place] assists only prior to or following the activity. 4-Supervision or Touching Assistance-helper provides verbal cues and/or touching/steadying and/or contact guard assistance as patient completes activity. Assistance may be provided throughout the activity or intermittently. 3-Partial/Moderate Assistance-helper does LESS THAN HALF the effort. [place] lifts, holds or supports trunk or limbs, but provides less than half the effort. 2-Substantial/Maximal Assistance-helper does MORE THAN HALF the effort. [place] lifts or holds trunk or limbs and provides more than half the effort. 1-Erqjlszid-chafxm does ALL the effort. Patient does none of the effort to complete the activity. Or, the assistance of 2 or more helpers is required for the patient to complete the activity. If activity was not attempted, code reason: 7-Patient Refused. 9-Not Applicable-not attempted and the patient did not perform the activity before the current illness, exacerbation or injury. 10-Not Attempted due to Environmental Limitations-(lack of equipment, weather restraints, etc.). 88-Not Attempted due to Medical Conditions or Safety Concerns. Sit to Stand (QC): 4 Toilet Transfer (QC): 4 Weight Bearing Right Lower Extremity: Right Full Weight Bearing Left Lower Extremity: Left Full Weight Bearing Gait Training Does the Patient Walk?: Yes Distance: 100', 250' x2 Walk 10 feet (QC): 4 Walk 50 ft with 2 Turns(QC): 4 Walk 150 ft (QC): 4 Gait Persons Needed: 1 Gait Assistive Device: FWW Balance Picking up an Object (QC): 4 Special Test Comments See Treatment note. Exercises Seated Therapy Exercises: Ankle pumps, Long arc quads, Hip flexion, Kicking activity Seated Reps: 15 Treatments Co-treat with PT [id number], skilled instruction and care requires 2 clinicians due to increased fall risk, fatigue and self limiting behaviors. PT focusing on transfers, mobility and B LE strengthening while OT focusing on ADLs, functional transfers and B UE strengthening. After set up and increased time, pt able to doff socks and don/doff shoes by self. Supervision to stand at sink while completing oral care independently. Pt fatigues quickly today and requires multiple recovery breaks. BP taken 129/61. Pt states that he has not been able to sleep the last 2 night. Pt able to pick objects off of floor using FWW with CGA. Pt does have tendency to over extend to grasp objects on floor and verbal cues needed to step closer to object. [id number]: Pt is disoriented when he awakens. Pt does not recognize or remember seeing MANAGER POST for morning tx. Pt does not remember what MANAGER POST reminds pt that was completed during morning session. Pt reports this makes him feel anxious since he occasionally notices memory slipping. Pt and MANAGER POST reorient pt and by end of tx pt demonstrates less confusion. Pt resting with all needs met, call light in hand. Nurse is notified of pt's orientation. Assessment Current Status: Fair Progress Pt is very fatigued and confused today. Pt has needed more frequent RB. PT Short Term Goals Short Term Goals Time Frame: May 30, 2020 Roll Left & Right: 4 Sit to lyin Lying to sitting on side of be: 4 Sit to stand: 4 Chair/vhh-aj-pzkls transfer: 4 Toilet transfer: 4 Walk 10 feet: 4 PT Retirement Goals Construction Contractor Goals PT Construction Contractor Goals Time Frame: Jun 13, 2020 Roll Left & Right (QC): 4 (SBA) Sit to Lying (QC): 4 (SBA) Lying-Sitting on Side/Bed(QC): 4 (SBA) Sit to Stand (QC): 4 (SBA) Chair/Npn-wq-Tfxjp Xfer(QC): 4 (SBA) Toilet Transfer (QC): 4 (SBA) Car Transfer (QC): 4 (SBA) Does the Patient Walk: Yes Walk 10 feet (QC): 4 (SBA) Walk 50ft with 2 Turns (QC): 4 (SBA) Walk 150 ft (QC): 4 (SBA) Walking 10ft on Uneven Surface: 4 (SBA) 1 Step (curb) (QC): 4 (CGA) 4 Steps (QC): 4 (CGA) 12 Steps (QC): 4 (CGA) Picking up an Object (QC): 4 (CGA) Wheel 50 feet with 2 turns (QC: 6 Wheel 150 feet: 6 PT Plan Problem List Problem List: Activity Tolerance, Safety, Gait Treatment/Plan Treatment Plan: Continue Plan of Care Treatment Plan: Bed Mobility, Education, Functional Activity Yuri, Functional Strength, Group Therapy, Gait, Safety, Therapeutic Exercise, Transfers Treatment Duration: Jun 13, 2020 Frequency: At least 5 of 7 days/Wk (IRF) Estimated Hrs Per Day: 1.5 hours per day Patient and/or Family Agrees t: Yes Safety Risks/Education Patient Education: Gait Training, Correct Positioning, Safety Issues Teaching Recipient: Patient Teaching Methods: Discussion Response to Teaching: Reinforcement Needed Time/GCodes Time In: 900 Time Out: 1430 Total Billed Treatment Time: 80 Total Billed Treatment 1, GT x2 (30m), FA (15m) & EX (15m) Co-treat w/OT for 60m (900-1000) [id number]: 1, FA (20m) PAULO CASTAÑEDA PTA Jun 05, 2020 10:02
--- NOTE | 2020-06-05 10:17 | Occupational Ther Daily Note ---
OT Current Status-Daily Note Subjective Pt alert, sitting in recliner. Pt agrees to therapy though takes increased time to initiate. No c/o pain only fatigue. Mental Status/Objective Patient Orientation: Person, Place, Time, Situation Attachments: IV (midline) ADL-Treatment Co-treat with PT [id number], skilled instruction and care requires 2 clinicians due to increased fall risk, fatigue and self limiting behaviors. PT focusing on transfers, mobility and B LE strengthening while OT focusing on ADLs, functional transfers and B UE strengthening. After set up and increased time, pt able to doff socks and don/doff shoes by self. Supervision to stand at sink while completing oral care independently. Pt fatigues quickly today and requires multiple recovery breaks. BP taken 129/61. Pt states that he has not been able to sleep the last 2 night. Therapy Code Descriptions/Definitions Functional [place] Measure: 0=Not Assessed/NA 4=Minimal Assistance 1=Total Assistance 5=Supervision or Setup 2=Maximal Assistance 6=Modified [place] 3=Moderate Assistance 7=Complete IndependenceSCALE: Activities may be completed with or without assistive devices. 1-Rittbtaxyu-fpwpyhl completes the activity by him/herself with no assistance from a helper. 5-Set-up or Clean-up Assistance-helper sets up or cleans up; patient completes activity. [place] assists only prior to or following the activity. 4-Supervision or Touching Assistance-helper provides verbal cues and/or touching/steadying and/or contact guard assistance as patient completes activity. Assistance may be provided throughout the activity or intermittently. 3-Partial/Moderate Assistance-helper does LESS THAN HALF the effort. [place] lifts, holds or supports trunk or limbs, but provides less than half the effort. 2-Substantial/Maximal Assistance-helper does MORE THAN HALF the effort. [place] lifts or holds trunk or limbs and provides more than half the effort. 4-Zkmblzgfv-ejzrzk does ALL the effort. Patient does none of the effort to complete the activity. Or, the assistance of 2 or more helpers is required for the patient to complete the activity. If activity was not attempted, code reason: 7-Patient Refused. 9-Not Applicable-not attempted and the patient did not perform the activity before the current illness, exacerbation or injury. 10-Not Attempted due to Environmental Limitations-(lack of equipment, weather restraints, etc.). 88-Not Attempted due to Medical Conditions or Safety Concerns. Eating (QC): 6 Oral Hygiene (QC): 4 On/Off Footwear: 5 Other Treatment Pt able to pick objects off of floor using FWW with CGA. Pt does have tendency to over extend to grasp objects on floor and verbal cues needed to step closer to object. Pt then completed 3 B UE light resistance theraband exercises requiring verbal and physical cues to complete with correct technique. After session, pt sitting in recliner with call light/phone in reach. Safety measures in place. OT Short Term Goals Short Term Goals Eatin Oral hygiene: 5 Toileting hygiene: 3 Shower/bathe self: 3 Upper body dressin Lower body dressin Putting on/taking off footwear: 3 OT Nursing Home Goals Mold Engraver Goals Time Frame: Jun 06, 2020 Eating (QC): 6 (met) Oral Hygiene (QC): 6 (not met) Toileting Hygiene (QC): 6 (not met) Shower/Bathe Self (QC): 4 (me) Upper Body Dressing (QC): 6 (not et) Lower Body Dressing (QC): 4 (not met) On/Off Footwear (QC): 4 (met) Additional Goals: 1-Demonstrate ADL Tasks, 2-Verbalize Understanding, 3-ImproveStrength/Yuri 1=Demonstrate adherence to instructed precautions during ADL tasks. 2=Patient will verbalize/demonstrate understanding of assistive devices/modifications for ADL. 3=Patient will improve strength/tolerance for activity to enable patient to perform ADL's. OT Education/Plan Problem List/Assessment Assessment: Decreased Activ Tolerance, Decreased Safety Aware, Impaired Cognition, Impaired Coordination, Impaired Self-Care Skills Discharge Recommendations Plan/Recommendations: Continue POC Treatment Plan/Plan of Care Patient would benefit from OT for education, treatment and training to promote independence in ADL's, mobility, safety and/or upper extremity function for ADL's. Plan of Care: ADL Retraining, Caregiver Training, Concurrent Therapy, Functional Mobility, Group Exercise/Act as Ind, UE Funct Exercise/Act, UE Neuromus Re-Ed/Coord, W/C Management Training Treatment Duration: Jun 06, 2020 Frequency: At least 5 of 7 days/Wk (IRF) Estimated Hrs Per Day: 1.5 hours per day Agreement: Yes Rehab Potential: Poor Time/GCodes Start Time: 09:00 Stop Time: 10:15 Total Time Billed (hr/min): 75 Billed Treatment Time 1 visit-ADL 2 (30 min) FA 2 (30 min) EX 1 (15 min) co-treat with PT [id number], individual [id number] MAKENZIE COMBS Jun 05, 2020 10:17
--- NOTE | 2020-06-05 12:08 | PM&R Progress Note ---
Subjective HPI/CC On Admission Date Seen by Provider: Jun 05, 2020 Time Seen by Provider: 12:00 Subjective/Events-last exam 06/05/20: Pt will go to [facility] tomorrow Very incontinent at times Overall doing very well 06/04/20: Pt doing pretty well Ready for half-way at [address] on Tuesday Decreased appetite but does eat every once in awhile Sugar is 135 Dr. Isaac saw Pt today 06/03/20: Pt doing pretty well Suppository placed and had a large BM Sister was visiting yesterday PCP also visited yesterday and going to the half-way soon 06/02/20: Pt will be discharged when half-way is placed Bowels moving a small amount Lactulose is given for bowels since he declines a suppository Will increase Senna to two BID 06/01/20: Confused at times Got up last night and walked to closet Dreamt he was swimming last night Refuses suppository 05/31/20: Patient in better mood BM+ Eating well 05/30/20: Patient seems to be doing better Less coughing More clear thought process 05/27 last BM 05/29/20: Cough improved Status improved Better mood 05/28/20: Pt coughing a bit still Will need 25/10 supervision so that may require half-way placement Family updated Antibiotics is now completed 05/27/20: Niece is at the bedside Overall doing very well Confusion occurs at times Plenty of family members taking care of him at home so that should be a good and safe discharge 05/26/20: Pt confused Doesnt really want me to see him today Its a struggle per Dr. Isaac also Hgb 10.4 Refusing to eat most of the time 05/25/20: Much improved Good family meeting Family at bedside RLL PNA crackles noted Cough improved with meds Decreased confusion Appetite better BM++ 05/24/20: Patient confused Sometimes willing to participate Slow processing per PCP after I conferred with her indepth about his hx Incontinent of urine noted Levaquin maintained for RLL PNA CXR reviewed Review of Systems General: Fatigue, Malaise Neurological: Weakness, Incoordination Objective Exam Vital Signs Vital Signs Date Time Temp Pulse Resp B/P (MAP) Pulse Ox O2 Delivery O2 Flow Rate FiO2 06/05/20 20:55 Room Air 06/05/20 16:00 36.8 81 16 109/53 (09) 97 Capillary Refill : Less Than 3 Seconds General Appearance: No Apparent Distress, Chronically ill HEENT: PERRL/EOMI, Pharynx Normal Neck: Full Range of Motion, Normal Inspection, Non Tender, Supple Respiratory: Chest Non Tender, Lungs Clear, Normal Breath Sounds, No Accessory Muscle Use, No Respiratory Distress Cardiovascular: Regular Rate, Rhythm, No Edema, No JVD, Normal Peripheral Pulses Gastrointestinal: Normal Bowel Sounds, Non Tender, Soft Rectal: Deferred Back: Normal Inspection Extremity: Normal Capillary Refill, Normal Inspection, Non Tender, No Calf Tenderness, No Pedal Edema Neurologic/Psychiatric: Alert, Oriented x3, No Motor/Sensory Deficits, Normal Mood/Affect Skin: Normal Color, Warm/Dry Lymphatic: No Adenopathy Results/Procedures Lab Patient resulted labs reviewed. FIM Transfers Therapy Code Descriptions/Definitions Functional [place] Measure: 0=Not Assessed/NA 4=Minimal Assistance 1=Total Assistance 5=Supervision or Setup 2=Maximal Assistance 6=Modified [place] 3=Moderate Assistance 7=Complete IndependenceSCALE: Activities may be completed with or without assistive devices. 9-Fopzhkzpdi-lmkvqes completes the activity by him/herself with no assistance from a helper. 5-Set-up or Clean-up Assistance-helper sets up or cleans up; patient completes activity. [place] assists only prior to or following the activity. 4-Supervision or Touching Assistance-helper provides verbal cues and/or touching/steadying and/or contact guard assistance as patient completes activity. Assistance may be provided throughout the activity or intermittently. 3-Partial/Moderate Assistance-helper does LESS THAN HALF the effort. [place] lifts, holds or supports trunk or limbs, but provides less than half the effort. 2-Substantial/Maximal Assistance-helper does MORE THAN HALF the effort. [place] lifts or holds trunk or limbs and provides more than half the effort. 5-Wzqcwrmut-mxdmzg does ALL the effort. Patient does none of the effort to complete the activity. Or, the assistance of 2 or more helpers is required for the patient to complete the activity. If activity was not attempted, code reason: 7-Patient Refused. 9-Not Applicable-not attempted and the patient did not perform the activity before the current illness, exacerbation or injury. 10-Not Attempted due to Environmental Limitations-(lack of equipment, weather restraints, etc.). 88-Not Attempted due to Medical Conditions or Safety Concerns. Roll Left to Right (QC): 5 Sit to Lying (QC): 5 Sit to Stand (QC): 4 Chair/Edl-vc-Feewd Xfer(QC): 5 Car Transfer (QC): 4 Gait Training Does the Patient Walk?: Yes Distance: 100', 250' x2 Walk 10 feet (QC): 4 Walk 50 ft with 2 Turns(QC): 4 Walk 150 ft (QC): 4 Walking 10ft/uneven surface-QC: 4 Gait Persons Needed: 1 Gait Assistive Device: FWW Wheelchair Training Does the Pt Use a Wheelchair?: Yes Wheel 50 ft with 2 turns (QC): 3 Wheel 150 ft (QC): 7 Type of Wheelchair: Manual (3) Stair Training Stair Training: Handrails/: 2 handrails #of Steps: 4 1 Step (curb) (QC): 4 4 Steps (QC): 4 12 Steps (QC): 88 Stairs: Pattern: Reciprocal Balance Picking up an Object (QC): 88 ADL-Treatment Eating (QC): 6 Oral Hygiene (QC): 4 Bathing Location: L Arm, R Arm, Chest Shower/Bathe Self (QC): 4 Upper Body Dressing (QC): 5 Lower Body Dressing (QC): 3 On/Off Footwear (QC): 5 Toileting Hygiene (QC): 4 Toilet Transfer (QC): 4 Assessment/Plan Assessment and Plan Assess & Plan/Chief Complaint Assessment: Critical illness myopathy s/p cardiogenic shock CKD Stage 4 HTN DM Confusion Cebrovascular disease on MRI Fall risk Plan: IRF protocol Monitor closely Monitor creat Cardiology consultation 05/24/20: Fall risk Incontinence Monitor confusion PCP meeting tomorrow with family 05/25/20: Improved status today Improved strength Less confusion 05/26/20: Monitor BP Fall risk 05/27/20: Confusion noted Appears there are plenty of family members able to check in on him 05/28/20: Needs NH or family with 25/10 supervision 05/29/20: Monitor BP Cough improved 05/30/20: SW with family today In-depth discussion regarding home dispo 05/31/20: Monitor closely Fall risk 06/01/20: Monitor closely Check labs in am Needs NHP 06/02/20: Monitor BP and BS NHP at DC 06/03/20: No major changes NHP at DC 06/04/20: Continues to improve Participation in therapy varies 06/05/20: DC to [place] tomorrow (1) Pneumonia Status: Acute Assessment & Plan: PT COMPLETED ANTIBIOTIC COURSE SYMPTOMS RESOLVED. Qualifiers: Laterality: right Lung location: lower lobe of lung (2) Acute on chronic kidney failure Assessment & Plan: CONTINUE TO AVOID NEPHROTOXIC AGENTS WILL SEE DR. PORTILLO OUTPATIENT IN FOLLOW UP. Qualifiers: Acute renal failure type: unspecified Chronic kidney disease stage: stage 4 (severe) Qualified Codes: N17.9 - Acute kidney failure, unspecified; N18.4 - Chronic kidney disease, stage 4 (severe) (3) Acute and subacute ischemic heart disease Assessment & Plan: PT HAS EJECTION FRACTION OF 15% ON EVALUATION AT [place]. PT CONTINUES TO NEED THERAPY FOR STRENGTHENING, HE HAS REQUESTED THAT HE GOES TO SEE DR. ALDANA IN FOLLOW UP. (4) DMII (diabetes mellitus, type 2) Assessment & Plan: PT ON LEVEMIR 5 UNITS BID AND ENCOURAGE HIM TO HAVE A SNACK OF AT LEAST 15 GRAMS OF PROTEIN AT HS. BLOOD GLUCOSE HIGHER THIS MORNING, MONITOR BLOOD GLUCOSE FINGER STICKS OVER THE NEXT FEW DAYS TO SEE IF WE NEED TO INCREASE LEVEMIR BACK UP TO 6 UNITS BID. 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 (8) S/P coronary artery stent placement (9) BPH (benign prostatic hyperplasia) Qualifiers: Lower urinary tract symptom presence: symptoms present Lower urinary tract symptom detail: urinary frequency Qualified Codes: N40.1 - Benign prostatic hyperplasia with lower urinary tract symptoms; R35.0 - Frequency of micturition (10) Cardiomyopathy Qualifiers: Cardiomyopathy type: ischemic Qualified Codes: I25.5 - Ischemic cardiomyopathy GHADA SANDOVAL DO Jun 05, 2020 12:08
--- NOTE | 2020-06-05 14:49 | Speech Therapy Daily Note ---
Speech Daily Progress Note Subjective Date Seen by Provider: Jun 05, 2020 Time Seen by Provider: 00:30 Patient was resting in his bed following his other therapies this morning. Assessment Assessment Current Status: Good Progress Treatment Plan Discontinue ST Speech Short Term Goals Short Term Goals Short Term Goals 1) Patient will complete memory tasks related to his daily needs at 80% or greater with minimal cues. 2) Patient will complete problem solving tasks related to his daily needs at 80% or greater with minimal cues. 3) Patient will complete safety awareness tasks related to his daily needs at 80% or greater with minimal cues. Speech Care Home Goals Service Parts Coordinator Goals Patient will improve cognitive-communication skills in order to improve safety and require minimal assist. Speech-Plan Patient/Family Goals Patient/Family Goals: Patient is scheduled to discharge to [facility] tomorrow. Treatment Plan Speech Therapy Treatment Plan: Discontinue ST Treatment Duration: Jun 06, 2020 Frequency: 4 times per week (Patient will receive skilled ST 4-5x per week) Estimated Hrs Per Day: .5 hour per day Rehab Potential: Poor Barriers to Learning: Patient's cognitive level of function, debility Pt/Family Agrees to Plan: Yes Safety Risks/Education Teaching Recipient: Patient Teaching Methods: Demonstration, Discussion Response to Teaching: Verbalize Understanding, Return Demonstration, Reinforcement Needed Education Topics Provided: Safety on the ARU and upon discharge to [facility] Time Speech Therapy Time In: 11:00 Speech Therapy Time Out: 11:30 Total Billed Time: 30 Billed Treatment Time QUALITY CODES: EXPRESSION OF IDEAS/WANTS: 3 UNDERSTANDING OF CONTENT: 3 BRIEF INTERVIEW: YES REPETITION OF 3 WORDS: 3 TEMPORAL ORIENTATION: YEAR: MISSED BY ONE YEAR, MONTH: YES, DAY: MISSED BY 1 DAY RECALL OF SOCK: NO, COLOR: YES WITH CUE, BED: NO MEMORY ABILITY: SEASON, THAT HE IS IN THE HOSPITAL No OLENA VICTOR Jun 05, 2020 14:49
[2020-06-05 16:00] VITALS: BP 109/53
[2020-06-05] MEDS ORDERED: MELA3TAB39 PO (17:44)
[2020-06-05] MEDS ORDERED: ACET-93 PO (17:44)
[2020-06-05] MEDS ORDERED: TICA90TA PO (17:44)
[2020-06-05] MEDS ORDERED: CARV3.122 PO (17:44)
[2020-06-05] MEDS ORDERED: INSU100V16 SC (17:44)
[2020-06-05] MEDS ORDERED: MIRT-47 PO (17:44)
[2020-06-05] MEDS ORDERED: ATOR40TA PO (17:44)
[2020-06-05] MEDS ORDERED: Guaifenesin/Codeine PO (17:44)
[2020-06-05] MEDS ORDERED: INSU100V5 SQ (17:44)
[2020-06-05] MEDS ORDERED: POLY17PO54 PO (17:44)
[2020-06-05] MEDS ORDERED: CALC200T40 PO (17:44)
--- NOTE | 2020-06-05 17:51 | Discharge Inst-Skilled Nursing ---
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 (8) S/P coronary artery stent placement (9) BPH (benign prostatic hyperplasia) (10) Cardiomyopathy Goal: increased strength with possibility of returning home with paid caregivers Consult/Follow Up/Orders Follow Up Appt.: 1 wk [facility] 2 wks cardiology 1 month nephrology Skilled NF Admit to: [facility] Certification (SNF) I certify that SNF services are required to be given on an inpatient basis because of the above named patient's need for long-term care on a c ontinuing basis for the conditions(s) for which he/she was receiving inpatient hospital services prior to his/her transfer to the SNF. Group Home Facility Order: Nursing Services, Superintendent [place]-Evaluate & Treat, Physical Therapy-Evaluate & Treat, Speech Language-Evaluate & Treat Oxygen Delivery Method: Room Air Discharge Diet: ADA Diet Daily Activity as Tolerated: Yes New & Resume Previous Orders New & Resume Previous Orders check cbc and cmp in 1 month hgba1c, cbc, cmp, lipid, thyroid function in 4 months from pa and then every 6 months thereafter FSBS AC and HS Randi Isaac Jun 05, 2020 17:45 Medication List: Active Scripts Active Novolog (Insulin Aspart) 100 Unit/1 Ml Susp 0 Unit SC ACHS fsbs 160-200 3units reg insulin, 201-250 5units, 251-300 7units reg insulin, 301-350 9Units reg insulin, 351-400 11units reg insulin if over 401 give 11 units call Melatonin 3 Mg Tablet 6 Mg PO HS Levemir (Insulin Determir) 1,000 Units/10 Ml Soln 5 Unit SQ 0800,2100 Polyethylene Glycol 3350 17 Gm Powd.pack 17 Gm PO BID hold for loose stools Calcium Antacid (Calcium Carbonate) 200 Mg Tab.chew 500-1,000 Mg PO Q4H PRN [Guaifenesin/Codeine] 10 ML Syrp 5 Ml PO Q4H Mirtazapine 15 Mg Tab.rapdis 15 Mg PO HS Acetaminophen 500 Mg Tablet 1,000 Mg PO Q6H PRN Lipitor (Atorvastatin Calcium) 40 Mg Tablet 40 Mg PO HS Carvedilol 3.125 Mg Tablet 3.125 Mg PO BID WITH MEALS Brilinta (Ticagrelor) 90 Mg Tablet 90 Mg PO BID Reported Amlodipine Besylate 10 Mg Tablet 10 Mg PO DAILY Bisoprolol Fumarate 5 Mg Tablet 7.5 Mg PO BID TAKES 1 & (5MG) TAB Plavix (Clopidogrel Bisulfate) 75 Mg Tablet 75 Mg PO DAILY Glimepiride 2 Mg Tablet 2 Mg PO BID Ativan (Lorazepam) 0.5 Mg Tablet 0.25-0.5 Mg PO BID PRN Flomax (Tamsulosin HCl) 0.4 Mg Cap 0.4 Mg PO HS Simvastatin 20 Mg Tablet 20 Mg PO HS Aspirin EC (Aspirin) 81 Mg Tablet.dr 81 Mg PO DAILY Vitamin D2 (Ergocalciferol (Vitamin D2)) 1,250 Mcg Capsule 1,250 Mcg PO SUN Lab results: Laboratory Tests Test 06/04/20 20:58 06/05/20 05:22 06/05/20 10:36 06/05/20 16:01 Range/Units Glucometer 163 H 115 H 132 H 193 H 70-110 MG/DL My orders: Orders - RANDI ISAAC MD Consulting Physician D/C Order (06/05/20 17:30) RANDI ISAAC MD Jun 05, 2020 17:51
[2020-06-05] MEDS: MIRTAZAPINE 15 MG (REMERON) TAB PO SCH (21:47)
[2020-06-05] MEDS: MELATONIN 3 MG TABLET PO SCH (21:49)
[2020-06-06] MEDS: guaiFENesin/CODEINE (ROBITUSSIN AC) 10ML UDC PO SCH ×3 (01:28→08:00)
[2020-06-06] MEDS: inSUlin ASPART (NovoLOG) 1 UNIT/0.01 ML (CHARGE PER UNIT) SC SCH (05:23)
[2020-06-06] MEDS: CATHETER FLUSH 10 ML SYR IV SCH (05:29)
--- NOTE | 2020-06-06 05:50 | Discharge Summary ---
Diagnosis/Chief Complaint Date of Admission May 23, 2020 at 14:40 Date of Discharge Discharge Date: Jun 06, 2020 Discharge Time: 1000 Discharge Diagnosis Assessment: Critical illness myopathy s/p cardiogenic shock CKD Stage 4 HTN DM Confusion Cebrovascular disease on MRI Fall risk Plan: IRF protocol Monitor closely Monitor creat Cardiology consultation 05/24/20: Fall risk Incontinence Monitor confusion PCP meeting tomorrow with family 05/25/20: Improved status today Improved strength Less confusion 05/26/20: Monitor BP Fall risk 05/27/20: Confusion noted Appears there are plenty of family members able to check in on him 05/28/20: Needs NH or family with 25/10 supervision 05/29/20: Monitor BP Cough improved 05/30/20: SW with family today In-depth discussion regarding home dispo 05/31/20: Monitor closely Fall risk 06/01/20: Monitor closely Check labs in am Needs NHP 06/02/20: Monitor BP and BS NHP at DC 06/03/20: No major changes NHP at DC 06/04/20: Continues to improve Participation in therapy varies 06/05/20: DC to NH tomorrow Discharge Summary Discharge Physical Examination Allergies: Coded Allergies: No Known Drug Allergies (Unverified , 01/10/19) Vitals & I&Os Vital Signs Date Time Temp Pulse Resp B/P (MAP) Pulse Ox O2 Delivery O2 Flow Rate FiO2 06/06/20 09:00 Room Air 06/06/20 05:52 36.9 86 17 136/62 (86) 99 General Appearance: Alert, Oriented X3, Cooperative Respiratory: Clear to Auscultation Cardiovascular: Regular Rate Neuro: Normal Gait, Normal Speech, Strength at 5/5 X4 Ext Psych/Mental Status: Mental Status NL Hospital Course Was the Problem List Reviewed?: Yes Lengthy course after admitted from higher level of care after sustaining a stroke. CKD was monitored and remained stable. Patient had difficulty with participation until PCP was able to meet with patient and family and although he remained confused at times he was able to participate. No falls occurred. No significant med changes were required. Overall he was able to improve enough to move to NH for 25/10 supervision. Labs (last 24 hrs) Laboratory Tests 05/23/20 17:53: White Blood Count 12.5H, Red Blood Count 3.52L, Hemoglobin 10.9L, Hematocrit 34L , Mean Corpuscular Volume 96, Mean Corpuscular Hemoglobin 31, Mean Corpuscular Hemoglobin Concent 32, Red Cell Distribution Width 15.4H, Platelet Count 301, Mean Platelet Volume 10.5, Immature Granulocyte % (Auto) 2, Neutrophils (%) (Auto) 83H, Lymphocytes (%) (Auto) 4L, Monocytes (%) (Auto) 7, Eosinophils (%) (Auto) 3, Basophils (%) (Auto) 1, Neutrophils # (Auto) 10.3H, Lymphocytes # (Auto) 0.6L, Monocytes # (Auto) 0.9, Eosinophils # (Auto) 0.4H, Basophils # (Auto) 0.1, Immature Granulocyte # (Auto) 0.2H, Neutrophils % (Manual) 88, Lymphocytes % (Manual) 4, Monocytes % (Manual) 6, Eosinophils % (Manual) 2, Blood Morphology Comment NORMAL, Sodium Level 134L, Potassium Level 3.9, Chlo ride Level 103, Carbon Dioxide Level 19L, Anion Gap 12, Blood Urea Nitrogen 42H, Creatinine 2.04H, Estimat Glomerular Filtration Rate 32, BUN/Creatinine Ratio 21, Glucose Level 189H, Calcium Level 8.3L, Corrected Calcium 8.7, Total Bilirubin 1.4H, Aspartate Amino Transf (AST/SGOT) 49H, Alanine Aminotransferase (ALT/SGPT) 44, Alkaline Phosphatase 76, Total Protein 6.5, Albumin 3.5 05/23/20 20:07: Glucometer 228H 05/24/20 05:00: White Blood Count 12.1H, Red Blood Count 3.41L, Hemoglobin 10.4L, Hematocrit 33L , Mean Corpuscular Volume 95, Mean Corpuscular Hemoglobin 31, Mean Corpuscular Hemoglobin Concent 32, Red Cell Distribution Width 15.4H, Platelet Count 297, Mean Platelet Volume 10.7, Immature Granulocyte % (Auto) 2, Neutrophils (%) (Auto) 80H, Lymphocytes (%) (Auto) 6L, Monocytes (%) (Auto) 8, Eosinophils (%) (Auto) 4, Basophils (%) (Auto) 1, Neutrophils # (Auto) 9.7H, Lymphocytes # (Auto) 0.7L, Monocytes # (Auto) 1.0, Eosinophils # (Auto) 0.5H, Basophils # (Auto) 0.1, Immature Granulocyte # (Auto) 0.2H, Sodium Level 135, Potassium Level 4.0, Chloride Level 106, Carbon Dioxide Level 19L, Anion Gap 10, Blood Urea Nitrogen 43H, Creatinine 2.03H, Estimat Glomerular Filtration Rate 32, BUN/Creatinine Ratio 21, Glucose Level 156H, Calcium Level 8.4L, Corrected Calcium 9.0, Total Bilirubin 1.2H, Aspartate Amino Transf (AST/SGOT) 54H, Alanine Aminotransferase (ALT/SGPT) 44, Alkaline Phosphatase 80, Total Protein 6.2L, Albumin 3.3 05/24/20 11:24: Glucometer 185H 05/24/20 16:33: Glucometer 137H 05/24/20 21:03: Glucometer 214H 05/25/20 05:25: Glucometer 53*L 05/25/20 05:26: White Blood Count 12.1H, Red Blood Count 3.38L, Hemoglobin 10.2L, Hematocrit 32L , Mean Corpuscular Volume 95, Mean Corpuscular Hemoglobin 30, Mean Corpuscular Hemoglobin Concent 32, Red Cell Distribution Width 15.3H, Platelet Count 365, Mean Platelet Volume 10.4, Sodium Level 135, Potassium Level 3.7, Chloride Level 105, Carbon Dioxide Level 19L, Anion Gap 11, Blood Urea Nitrogen 38H, Creatinine 2.02H, Estimat Glomerular Filtration Rate 32, BUN/Creatinine Ratio 19, Glucose Level 54*L, Calcium Level 8.4L, Corrected Calcium 9.1, Total Bilirubin 1.2H, Aspartate Amino Transf (AST/SGOT) 33, Alanine Aminotransferase (ALT/SGPT) 34, Alkaline Phosphatase 85, Total Protein 6.1L, Albumin 3.1L 05/25/20 06:54: Glucometer 102 05/25/20 09:01: Glucometer 188H 05/25/20 11:46: Glucometer 159H 05/25/20 16:32: Glucometer 166H 05/25/20 20:33: Glucometer 218H 05/26/20 05:16: White Blood Count 10.7, Red Blood Count 3.40L, Hemoglobin 10.4L, Hematocrit 33L, Mean Corpuscular Volume 96, Mean Corpuscular Hemoglobin 31, Mean Corpuscular Hemoglobin Concent 32, Red Cell Distribution Width 15.0H, Platelet Count 370, Mean Platelet Volume 10.4, Sodium Level 132L, Potassium Level 4.4, Chloride Level 102, Carbon Dioxide Level 19L, Anion Gap 11, Blood Urea Nitrogen 38H, Creatinine 2.15H, Estimat Glomerular Filtration Rate 30, BUN/Creatinine Ratio 18, Glucose Level 184H, Calcium Level 8.6, Corrected Calcium 9.2, Total Bilirubin 1.0, Aspartate Amino Transf (AST/SGOT) 26, Alanine Aminotransferase (A LT/SGPT) 27, Alkaline Phosphatase 83, Total Protein 6.4, Albumin 3.2 05/26/20 11:48: Glucometer 112H 05/26/20 17:02: Glucometer 168H 05/26/20 20:48: Glucometer 208H 05/27/20 06:07: Glucometer 145H 05/27/20 11:18: Glucometer 151H 05/27/20 16:50: Glucometer 222H 05/27/20 21:02: Glucometer 201H 05/28/20 06:04: Glucometer 160H 05/28/20 11:08: Glucometer 174H 05/28/20 15:47: Glucometer 212H 05/29/20 05:18: Glucometer 119H 05/29/20 10:44: Glucometer 163H 05/29/20 16:13: Glucometer 156H 05/29/20 20:06: Glucometer 215H 05/30/20 05:47: Glucometer 142H 05/30/20 10:46: Glucometer 144H 05/30/20 15:44: Glucometer 173H 05/30/20 20:05: Glucometer 164H 05/31/20 05:21: Glucometer 109 05/31/20 10:38: Glucometer 168H 05/31/20 15:25: Glucometer 195H 05/31/20 19:58: Glucometer 100 06/01/20 06:13: Glucometer 136H 06/01/20 10:47: Glucometer 181H 06/01/20 15:10: Glucometer 120H 06/01/20 20:21: Glucometer 147H 06/02/20 04:48: Glucometer 129H 06/02/20 04:50: White Blood Count 9.6, Red Blood Count 3.48L, Hemoglobin 10.8L, Hematocrit 34L, Mean Corpuscular Volume 96, Mean Corpuscular Hemoglobin 31, Mean Corpuscular Hemoglobin Concent 32, Red Cell Distribution Width 15.1H, Platelet Count 295, Mean Platelet Volume 10.0, Immature Granulocyte % (Auto) 1, Neutrophils (%) (Auto) 77H, Lymphocytes (%) (Auto) 8L, Monocytes (%) (Auto) 10, Eosinophils (%) (Auto) 4, Basophils (%) (Auto) 1, Neutrophils # (Auto) 7.4, Lymphocytes # (Auto) 0.7L, Monocytes # (Auto) 0.9, Eosinophils # (Auto) 0.4H, Basophils # (Auto) 0.1, Immature Granulocyte # (Auto) 0.1, Neutrophils % (Manual) 78, Lymphocytes % (Manual) 9, Monocytes % (Manual) 6, Eosinophils % (Manual) 5, Basophils % (Manual) 1, Band Neutrophils 1, Blood Morphology Comment NORMAL, Sodium Level 137, Potassium Level 4.2, Chloride Level 105, Carbon Dioxide Level 24, Anion Gap 8, Blood Urea Nitrogen 26H, Creatinine 2.06H, Estimat Glomerular Filtration Rate 31, BUN/Creatinine Ratio 13, Glucose Level 143H, Calcium Level 8.6, Corrected Calcium 9.4, Total Bilirubin 1.0, Aspartate Amino Transf (AST/SGOT) 27, Alanine Aminotransferase (ALT/SGPT) 22, Alkaline Phosphatase 76, Total Protein 6.1L, Albumin 3.0L 06/02/20 12:02: Glucometer 169H 06/02/20 16:14: Glucometer 165H 06/02/20 20:31: Glucometer 218H 06/03/20 06:12: Glucometer 88 06/03/20 16:23: Glucometer 196H 06/03/20 20:08: Glucometer 126H 06/04/20 05:03: Glucometer 135H 06/04/20 08:10: White Blood Count 10.3, Red Blood Count 3.29L, Hemoglobin 10.1L, Hematocrit 32L, Mean Corpuscular Volume 97, Mean Corpuscular Hemoglobin 31, Mean Corpuscular Hemoglobin Concent 32, Red Cell Distribution Width 15.2H, Platelet Count 246, Mean Platelet Volume 9.9, Sodium Level 138, Potassium Level 4.1, Chloride Level 106, Carbon Dioxide Level 24, Anion Gap 8, Blood Urea Nitrogen 26H, Creatinine 2.28H, Estimat Glomerular Filtration Rate 28, BUN/Creatinine Ratio 11, Glucose Level 140H, Calcium Level 8.4L, Corrected Calcium 9.3, Total Bilirubin 0.8, Aspartate Amino Transf (AST/SGOT) 27, Alanine Aminotransferase (ALT/SGPT) 22, Alkaline Phosphatase 68, Total Protein 5.9L, Albumin 2.9L 06/04/20 10:57: Glucometer 153H 06/04/20 16:30: Glucometer 101 06/04/20 20:58: Glucometer 163H 06/05/20 05:22: Glucometer 115H 06/05/20 10:36: Glucometer 132H 06/05/20 16:01: Glucometer 193H 06/05/20 20:15: Glucometer 82 06/06/20 05:23: Glucometer 129H Pending Labs Laboratory Tests 05/23/20 17:53: White Blood Count 12.5, Red Blood Count 3.52, Hemoglobin 10.9, Hematocrit 34, Mean Corpuscular Volume 96, Mean Corpuscular Hemoglobin 31, Mean Corpuscular Hemoglobin Concent 32, Red Cell Distribution Width 15.4, Platelet Count 301, Mean Platelet Volume 10.5, Immature Granulocyte % (Auto) 2, Neutrophils (%) (Auto) 83, Lymphocytes (%) (Auto) 4, Monocytes (%) (Auto) 7, Eosinophils (%) (Auto) 3, Basophils (%) (Auto) 1, Neutrophils # (Auto) 10.3, Lymphocytes # (Auto) 0.6, Monocytes # (Auto) 0.9, Eosinophils # (Auto) 0.4, Basophils # (Auto) 0.1, Immature Granulocyte # (Auto) 0.2, Neutrophils % (Manual) 88, Lymphocytes % (Manual) 4, Monocytes % (Manual) 6, Eosinophils % (Manual) 2, Blood Morphology Comment NORMAL, Sodium Level 134, Potassium Level 3.9, Chloride Level 103, Carbon Dioxide Level 19, Anion Gap 12, Blood Urea Nitrogen 42, Creatinine 2.04, Estimat Glomerular Filtration Rate 32, BUN/Creatinine Ratio 21, Glucose Level 189, Calcium Level 8.3, Corrected Calcium 8.7, Total Bilirubin 1.4, Aspartate Amino Transf (AST/SGOT) 49, Alanine Aminotransferase (ALT/SGPT) 44, Alkaline Phosphatase 76, Total Protein 6.5, Albumin 3.5 05/23/20 20:07: Glucometer 228 05/24/20 05:00: White Blood Count 12.1, Red Blood Count 3.41, Hemoglobin 10.4, Hematocrit 33, Mean Corpuscular Volume 95, Mean Corpuscular Hemoglobin 31, Mean Corpuscular Hemoglobin Concent 32, Red Cell Distribution Width 15.4, Platelet Count 297, Mean Platelet Volume 10.7, Immature Granulocyte % (Auto) 2, Neutrophils (%) (Auto) 80, Lymphocytes (%) (Auto) 6, Monocytes (%) (Auto) 8, Eosinophils (%) (Auto) 4, Basophils (%) (Auto) 1, Neutrophils # (Auto) 9.7, Lymphocytes # (Auto) 0.7, Monocytes # (Auto) 1.0, Eosinophils # (Auto) 0.5, Basophils # (Auto) 0.1, Immature Granulocyte # (Auto) 0.2, Sodium Level 135, Potassium Level 4.0, Chloride Level 106, Carbon Dioxide Level 19, Anion Gap 10, Blood Urea Nitrogen 43, Creatinine 2.03, Estimat Glomerular Filtration Rate 32, BUN/Creatinine Ratio 21, Glucose Level 156, Calcium Level 8.4, Corrected Calcium 9.0, Total Bilirubin 1.2, Aspartate Amino Transf (AST/SGOT) 54, Alanine Aminotransferase (ALT/SGPT) 44, Alkaline Phosphatase 80, Total Protein 6.2, Albumin 3.3 05/24/20 11:24: Glucometer 185 05/24/20 16:33: Glucometer 137 05/24/20 21:03: Glucometer 214 05/25/20 05:25: Glucometer 53 05/25/20 05:26: White Blood Count 12.1, Red Blood Count 3.38, Hemoglobin 10.2, Hematocrit 32, Mean Corpuscular Volume 95, Mean Corpuscular Hemoglobin 30, Mean Corpuscular Hemoglobin Concent 32, Red Cell Distribution Width 15.3, Platelet Count 365, Mean Platelet Volume 10.4, Sodium Level 135, Potassium Level 3.7, Chloride Level 105, Carbon Dioxide Level 19, Anion Gap 11, Blood Urea Nitrogen 38, Creatinine 2.02, Estimat Glomerular Filtration Rate 32, BUN/Creatinine Ratio 19, Glucose Level 54, Calcium Level 8.4, Corrected Calcium 9.1, Total Bilirubin 1.2, Aspartate Amino Transf (AST/SGOT) 33, Alanine Aminotransferase (ALT/SGPT) 34, Alkaline Phosphatase 85, Total Protein 6.1, Albumin 3.1 05/25/20 06:54: Glucometer 102 05/25/20 09:01: Glucometer 188 05/25/20 11:46: Glucometer 159 05/25/20 16:32: Glucometer 166 05/25/20 20:33: Glucometer 218 05/26/20 05:16: White Blood Count 10.7, Red Blood Count 3.40, Hemoglobin 10.4, Hematocrit 33, Mean Corpuscular Volume 96, Mean Corpuscular Hemoglobin 31, Mean Corpuscular Hemoglobin Concent 32, Red Cell Distribution Width 15.0, Platelet Count 370, Mean Platelet Volume 10.4, Sodium Level 132, Potassium Level 4.4, Chloride Level 102, Carbon Dioxide Level 19, Anion Gap 11, Blood Urea Nitrogen 38, Creatinine 2.15, Estimat Glomerular Filtration Rate 30, BUN/Creatinine Ratio 18, Glucose Level 184, Calcium Level 8.6, Corrected Calcium 9.2, Total Bilirubin 1.0, Aspartate Amino Transf (AST/SGOT) 26, Alanine Aminotransferase (ALT/SGPT) 27, Alkaline Phosphatase 83, Total Protein 6.4, Albumin 3.2 05/26/20 11:48: Glucometer 112 05/26/20 17:02: Glucometer 168 05/26/20 20:48: Glucometer 208 05/27/20 06:07: Glucometer 145 05/27/20 11:18: Glucometer 151 05/27/20 16:50: Glucometer 222 05/27/20 21:02: Glucometer 201 05/28/20 06:04: Glucometer 160 05/28/20 11:08: Glucometer 174 05/28/20 15:47: Glucometer 212 05/29/20 05:18: Glucometer 119 05/29/20 10:44: Glucometer 163 05/29/20 16:13: Glucometer 156 05/29/20 20:06: Glucometer 215 05/30/20 05:47: Glucometer 142 05/30/20 10:46: Glucometer 144 05/30/20 15:44: Glucometer 173 05/30/20 20:05: Glucometer 164 05/31/20 05:21: Glucometer 109 05/31/20 10:38: Glucometer 168 05/31/20 15:25: Glucometer 195 05/31/20 19:58: Glucometer 100 06/01/20 06:13: Glucometer 136 06/01/20 10:47: Glucometer 181 06/01/20 15:10: Glucometer 120 06/01/20 20:21: Glucometer 147 06/02/20 04:48: Glucometer 129 06/02/20 04:50: White Blood Count 9.6, Red Blood Count 3.48, Hemoglobin 10.8, Hematocrit 34, Mean Corpuscular Volume 96, Mean Corpuscular Hemoglobin 31, Mean Corpuscular Hemoglobin Concent 32, Red Cell Distribution Width 15.1, Platelet Count 295, Mean Platelet Volume 10.0, Immature Granulocyte % (Auto) 1, Neutrophils (%) (Auto) 77, Lymphocytes (%) (Auto) 8, Monocytes (%) (Auto) 10, Eosinophils (%) (Auto) 4, Basophils (%) (Auto) 1, Neutrophils # (Auto) 7.4, Lymphocytes # (Auto) 0.7, Monocytes # (Auto) 0.9, Eosinophils # (Auto) 0.4, Basophils # (Auto) 0.1, Immature Granulocyte # (Auto) 0.1, Neutrophils % (Manual) 78, Lymphocytes % (Manual) 9, Monocytes % (Manual) 6, Eosinophils % (Manual) 5, Basophils % (Manual) 1, Band Neutrophils 1, Blood Morphology Comment NORMAL, Sodium Level 137, Potassium Level 4.2, Chloride Level 105, Carbon Dioxide Level 24, Anion Gap 8, Blood Urea Nitrogen 26, Creatinine 2.06, Estimat Glomerular Filtration Rate 31, BUN/Creatinine Ratio 13, Glucose Level 143, Calcium Level 8.6, Corrected Calcium 9.4, Total Bilirubin 1.0, Aspartate Amino Transf (AST/SGOT) 27, Alanine Aminotransferase (ALT/SGPT) 22, Alkaline Phosphatase 76, Total Protein 6.1, Albumin 3.0 06/02/20 12:02: Glucometer 169 06/02/20 16:14: Glucometer 165 06/02/20 20:31: Glucometer 218 06/03/20 06:12: Glucometer 88 06/03/20 16:23: Glucometer 196 06/03/20 20:08: Glucometer 126 06/04/20 05:03: Glucometer 135 06/04/20 08:10: White Blood Count 10.3, Red Blood Count 3.29, Hemoglobin 10.1, Hematocrit 32, Mean Corpuscular Volume 97, Mean Corpuscular Hemoglobin 31, Mean Corpuscular Hemoglobin Concent 32, Red Cell Distribution Width 15.2, Platelet Count 246, Mean Platelet Volume 9.9, Sodium Level 138, Potassium Level 4.1, Chloride Level 106, Carbon Dioxide Level 24, Anion Gap 8, Blood Urea Nitrogen 26, Creatinine 2.28, Estimat Glomerular Filtration Rate 28, BUN/Creatinine Ratio 11, Glucose Level 140, Calcium Level 8.4, Corrected Calcium 9.3, Total Bilirubin 0.8, Aspartate Amino Transf (AST/SGOT) 27, Alanine Aminotransferase (ALT/SGPT) 22, Alkaline Phosphatase 68, Total Protein 5.9, Albumin 2.9 06/04/20 10:57: Glucometer 153 06/04/20 16:30: Glucometer 101 06/04/20 20:58: Glucometer 163 06/05/20 05:22: Glucometer 115 06/05/20 10:36: Glucometer 132 06/05/20 16:01: Glucometer 193 06/05/20 20:15: Glucometer 82 06/06/20 05:23: Glucometer 129 Discharge Home Medications: Active Scripts Active Novolog (Insulin Aspart) 100 Unit/1 Ml Susp 0 Unit SC ACHS fsbs 160-200 3units reg insulin, 201-250 5units, 251-300 7units reg insulin, 301-350 9Units reg insulin, 351-400 11units reg insulin if over 401 give 11 units call Melatonin 3 Mg Tablet 6 Mg PO HS Levemir (Insulin Determir) 1,000 Units/10 Ml Soln 5 Unit SQ 0800,2100 Polyethylene Glycol 3350 17 Gm Powd.pack 17 Gm PO BID hold for loose stools Calcium Antacid (Calcium Carbonate) 200 Mg Tab.chew 500-1,000 Mg PO Q4H PRN [Guaifenesin/Codeine] 10 ML Syrp 5 Ml PO Q4H Mirtazapine 15 Mg Tab.rapdis 15 Mg PO HS Acetaminophen 500 Mg Tablet 1,000 Mg PO Q6H PRN Lipitor (Atorvastatin Calcium) 40 Mg Tablet 40 Mg PO HS Carvedilol 3.125 Mg Tablet 3.125 Mg PO BID WITH MEALS Brilinta (Ticagrelor) 90 Mg Tablet 90 Mg PO BID Reported Amlodipine Besylate 10 Mg Tablet 10 Mg PO DAILY Ativan (Lorazepam) 0.5 Mg Tablet 0.25-0.5 Mg PO BID PRN Flomax (Tamsulosin HCl) 0.4 Mg Cap 0.4 Mg PO HS Aspirin EC (Aspirin) 81 Mg Tablet.dr 81 Mg PO DAILY Vitamin D2 (Ergocalciferol (Vitamin D2)) 1,250 Mcg Capsule 1,250 Mcg PO SUN Instructions to patient/family Please see electronic discharge instructions given to patient. Diagnosis/Problems Diagnosis/Problems (1) Myopathy (2) CKD (chronic kidney disease) stage 4, GFR 15-29 ml/min (3) Confusion (4) Cerebrovascular disease (5) Cardiomyopathy Qualifiers: Qualified Codes: I25.5 - Ischemic cardiomyopathy (6) CAD (coronary artery disease) Qualifiers: Qualified Codes: I25.10 - Atherosclerotic heart disease of [place] coronary artery without angina pectoris (7) S/P coronary artery stent placement (8) URI (upper respiratory infection) (9) Diabetes mellitus (10) Anemia Qualifiers: Qualified Codes: D50.8 - Other iron deficiency anemias (11) DMII (diabetes mellitus, type 2) Qualifiers: Qualified Codes: E11.22 - Type 2 diabetes mellitus with diabetic chronic kidney disease; N18.4 - Chronic kidney disease, stage 4 (severe); Z79.4 - residential (current) use of insulin (12) BPH (benign prostatic hyperplasia) Qualifiers: Qualified Codes: N40.1 - Benign prostatic hyperplasia with lower urinary tract symptoms; R35.0 - Frequency of micturition GHADA SANDOVAL DO Jun 06, 2020 05:50
[2020-06-06 05:52] VITALS: BP 136/62
[2020-06-06] MEDS: polyethylene glycoL POWDER 17 GM (MIRALAX) PACK PO SCH (07:59)
[2020-06-06] MEDS: ASPIRIN E.C. 81 MG (ECOTRIN) TAB PO SCH (08:00)
[2020-06-06] MEDS: DOCUSATE SODIUM 100 MG (COLACE) CAP PO SCH (08:00)
[2020-06-06] MEDS: BENZONATATE 100 MG (TESSALON) CAPSULE PO SCH (08:00)
[2020-06-06] MEDS: TICAGRELOR 90 MG TABLET (BRILINTA) PO SCH (08:00)
[2020-06-06] MEDS: SENNA W/DOCUSATE (SENOKOT S) TABLET PO SCH (08:00)
[2020-06-06] MEDS: CARVEDILOL 3.125 MG (COREG) TABLET PO SCH (08:00)
--- NOTE | 2020-06-06 09:50 | Therapy Team Discharge Summary ---
Therapy Discharge Summary Discharge Recommendations Date of Discharge Occupational Therapy Decreased Activ Tolerance, Decreased Safety Aware, Impaired Cognition, Impaired Coordination, Impaired Self-Care Skills Speech-Language Pathology Patient was admitted to the ARU following heart procedure. The patient received skilled ST as indicated by the SLUMS score. He was resistant to therapy initially, however he did work well with good progress toward goals. Patient is discharging to [facility] today where he will continue his therapy. PT Residential Goals Residential Goals PT Esl Professor Goals Time Frame: Jun 13, 2020 Roll Left to Right (QC): 4 (SBA) Sit to Lying (QC): 4 (SBA) Lying-Sitting on Side/Bed(QC): 4 (SBA) Sit to Stand (QC): 4 (SBA) Chair/Yxy-ac-Ddysh Xfer(QC): 4 (SBA) Car Transfer (QC): 4 (SBA) Does the Patient Walk: Yes Walk 10 feet (QC): 4 (SBA) Walk 10ft-Uneven Surface(QC): 4 (SBA) Walk 50ft with 2 Turns (QC): 4 (SBA) Walk 150 ft (QC): 4 (SBA) Wheel 50 feet with 2 turns (QC: 6 1 Step (curb) (QC): 4 (CGA) 4 Steps (QC): 4 (CGA) 12 Steps (QC): 4 (CGA) Picking up an Object (QC): 4 (CGA) OT Residential Goals Residential Goals Time Frame: Jun 06, 2020 Eating (QC): 6 (met) Oral Hygiene (QC): 6 (not met) Shower/Bathe Self (QC): 4 (me) Upper Body Dressing (QC): 6 (not et) Lower Body Dressing (QC): 4 (not met) On/Off Footwear (QC): 4 (met) Toileting Hygiene (QC): 6 (not met) Toilet/Commode Transfer (QC): 4 (SBA) Additional Goals: 1-Demonstrate ADL Tasks, 2-Verbalize Understanding, 3- ImproveStrength/Yuri 1=Demonstrate adherence to instructed precautions during ADL tasks. 2=Patient will verbalize/demonstrate understanding of assistive devices/modifications for ADL. 3=Patient will improve strength/tolerance for activity to enable patient to perform ADL's. Speech Esl Professor Goals Residential Goals Patient will improve cognitive-communication skills in order to improve safety and require minimal assist. OLENA VICTOR Jun 06, 2020 09:50
--- NOTE | 2020-06-06 14:15 | Therapy Team Discharge Summary ---
Therapy Discharge Summary Discharge Recommendations Date of Discharge Jun 06, 2020 at 10:30 Physical Therapy Patient came to rehab with NSTEMI. Upon evaluation patient performed bed mobility and supine <-> sit min assist, sit to stand and stand pivot transfer min assist, he refused all other functional mobility testing during evaluation. Patient has been performing bed mobility and transfer training, balance and endurance training, functional strengthening, stair training, gait training, and education. Patient has made good progress and has met all of his care home goals. Now, patient performs bed mobility and supine <-> sit with setup, sit <- > stand and transfers with setup, car transfer with SBA, ambulates 150' with a rolling walker with SBA (including 50' with at least 2 turns of 90 degrees and 10' over an uneven surface), and can go up and down 4 steps using 2 handrails with CGA/SBA. Patient has been discharged from this facility today and will be discharged from PT at this time. Occupational Therapy Decreased Activ Tolerance, Decreased Safety Aware, Impaired Cognition, Impaired Coordination, Impaired Self-Care Skills PT Director Of Maternity Services Goals Director Of Maternity Services Goals PT Director Of Maternity Services Goals Time Frame: Jun 13, 2020 Roll Left to Right (QC): 4 (SBA) Sit to Lying (QC): 4 (SBA) Lying-Sitting on Side/Bed(QC): 4 (SBA) Sit to Stand (QC): 4 (SBA) Chair/Igc-me-Odpmu Xfer(QC): 4 (SBA) Car Transfer (QC): 4 (SBA) Does the Patient Walk: Yes Walk 10 feet (QC): 4 (SBA) Walk 10ft-Uneven Surface(QC): 4 (SBA) Walk 50ft with 2 Turns (QC): 4 (SBA) Walk 150 ft (QC): 4 (SBA) Wheel 50 feet with 2 turns (QC: 6 1 Step (curb) (QC): 4 (CGA) 4 Steps (QC): 4 (CGA) 12 Steps (QC): 4 (CGA) Picking up an Object (QC): 4 (CGA) OT Director Of Maternity Services Goals Director Of Maternity Services Goals Time Frame: Jun 06, 2020 Eating (QC): 6 (met) Oral Hygiene (QC): 6 (not met) Shower/Bathe Self (QC): 4 (me) Upper Body Dressing (QC): 6 (not et) Lower Body Dressing (QC): 4 (not met) On/Off Footwear (QC): 4 (met) Toileting Hygiene (QC): 6 (not met) Toilet/Commode Transfer (QC): 4 (SBA) Additional Goals: 1-Demonstrate ADL Tasks, 2-Verbalize Understanding, 3- ImproveStrength/Yuri 1=Demonstrate adherence to instructed precautions during ADL tasks. 2=Patient will verbalize/demonstrate understanding of assistive devices/modifications for ADL. 3=Patient will improve strength/tolerance for activity to enable patient to perform ADL's. Speech Shelter Goals Director Of Maternity Services Goals Patient will improve cognitive-communication skills in order to improve safety and require minimal assist. FRANK YATES PT Jun 06, 2020 14:15
--- NOTE | 2020-06-06 15:00 | Therapy Team Discharge Summary ---
Therapy Discharge Summary Discharge Recommendations Date of Discharge Jun 06, 2020 at 10:30 Occupational Therapy Pt admits post NSTEMI. Upon admission, pt able to complete eating/ oral care w ith s/u and completes all other ADLs with max A. Pt and OT staff work towards higher fx IND through ADL training, safety training, UE strengthening, balance and fx activity tolerance, etc. Pt limited by motivation/ self-limiting behaviors, decreased awareness, ideational apraxia, decreased safety, and requirement of VCs throughout tx to maintain safety/ correct ADL sequencing. Pt d/c's to SNF with eating IND, oral care/ toileting and transfers with SBA, footwear s/u, LB dressing with mod A. D/c OT at this time with 24 hour care suggested. Decreased Activ Tolerance, Decreased Safety Aware, Impaired Cognition, Impaired Coordination, Impaired Self-Care Skills PT Correction Goals Instrument Tester Goals PT Instrument Tester Goals Time Frame: Jun 13, 2020 Roll Left to Right (QC): 4 (SBA) Sit to Lying (QC): 4 (SBA) Lying-Sitting on Side/Bed(QC): 4 (SBA) Sit to Stand (QC): 4 (SBA) Chair/Wgk-wy-Irfnt Xfer(QC): 4 (SBA) Car Transfer (QC): 4 (SBA) Does the Patient Walk: Yes Walk 10 feet (QC): 4 (SBA) Walk 10ft-Uneven Surface(QC): 4 (SBA) Walk 50ft with 2 Turns (QC): 4 (SBA) Walk 150 ft (QC): 4 (SBA) Wheel 50 feet with 2 turns (QC: 6 1 Step (curb) (QC): 4 (CGA) 4 Steps (QC): 4 (CGA) 12 Steps (QC): 4 (CGA) Picking up an Object (QC): 4 (CGA) OT Instrument Tester Goals Instrument Tester Goals Time Frame: Jun 06, 2020 Eating (QC): 6 (met) Oral Hygiene (QC): 6 (not met) Shower/Bathe Self (QC): 4 (me) Upper Body Dressing (QC): 6 (not et) Lower Body Dressing (QC): 4 (not met) On/Off Footwear (QC): 4 (met) Toileting Hygiene (QC): 6 (not met) Toilet/Commode Transfer (QC): 4 (SBA) Additional Goals: 1-Demonstrate ADL Tasks, 2-Verbalize Understanding, 3- ImproveStrength/Yuri 1=Demonstrate adherence to instructed precautions during ADL tasks. 2=Patient will verbalize/demonstrate understanding of assistive devices/heather fications for ADL. 3=Patient will improve strength/tolerance for activity to enable patient to perform ADL's. Speech Instrument Tester Goals Instrument Tester Goals Patient will improve cognitive-communication skills in order to improve safety and require minimal assist. JACQUES CRESPO OTR Jun 06, 2020 15:00
== END 2020-06-06 10:30 | DRG 91 ==
PROVIDERS: ADMIT Internal Medicine; ATTEND Internal Medicine
DX: G72.81 Critical illness myopathy (principal); J18.9 Pneumonia, unspecified organism; N17.9 Acute kidney failure, unspecified; N18.4 Chronic kidney disease, stage 4 (severe); I12.9 Hypertensive chronic kidney disease with stage 1 through stage 4 chronic kidney disease, or unspecified chronic kidney disease; E11.22 Type 2 diabetes mellitus with diabetic chronic kidney disease; I25.5 Ischemic cardiomyopathy; J06.9 Acute upper respiratory infection, unspecified; C61 Malignant neoplasm of prostate; E11.40 Type 2 diabetes mellitus with diabetic neuropathy, unspecified; I25.10 Atherosclerotic heart disease of native coronary artery without angina pectoris; E78.00 Pure hypercholesterolemia, unspecified; N40.1 Benign prostatic hyperplasia with lower urinary tract symptoms; R32 Unspecified urinary incontinence; K59.00 Constipation, unspecified; M19.91 Primary osteoarthritis, unspecified site; H54.7 Unspecified visual loss; L60.0 Ingrowing nail; B35.1 Tinea unguium; Z79.4 Long term (current) use of insulin; Z95.5 Presence of coronary angioplasty implant and graft; I25.2 Old myocardial infarction; Z79.82 Long term (current) use of aspirin; Z86.73 Personal history of transient ischemic attack (TIA), and cerebral infarction without residual deficits
CPT/HCPCS: 36415; 71045; 71046; 80053; 82962; 85007; 85025; 85027; 94664

== ENCOUNTER → 2020-09-15 | Outpatient (CLI) | payer MEDICARE ==
[~2020-09-15] MED LIST changes: +ACET-2267 PO; +ACET-93 PO; +ASPI325T32 PO; +ATOR40TA PO; +ATOR40TA70 PO; +ATOR80TA76 PO; +CALC200T40 PO; +CALC500T64 PO; +CARV3.122 PO; +CARV6.252 PO; +CITA20TA9 PO; +CLOP75TA69 PO; +FAMO20TA3 PO; +FURO40TA4 PO; +GUAI5LIQ11 PO; +Guaifenesin/Codeine PO; +INSU100V16 SC; +INSU100V16 SQ; +INSU100V5 SQ; +LACT1CAP87 PO; +LEVO500T80 PO; +LOSA50TA63 PO; +MELA3TAB39 PO; +MIRT-47 PO; +MIRT15TA6 PO; +PAMI30VI8 SQ; +POLY17PO54 PO; +POLY17PO6 PO; +POTA-51 PO; +TICA90TA PO
== END ==
LOC: RAD 10:25
PROVIDERS: ATTEND Nurse Practitioner Family
DX: R13.14 Dysphagia, pharyngoesophageal phase (principal)

== ENCOUNTER 2020-09-29 00:50 | Inpatient (IN) | payer MEDICARE ==
[~2020-09-29] VITALS: Ht 175.2 cm; Wt 56.2 kg
[~2020-09-29 00:50] MED LIST changes: +ERGO1250 PO; -ERGO50006 PO; +MIRT-68 PO; -MIRT15TA6 PO; -SULF1TAB35 PO; +SULF1TAB38 PO
[2020-09-29] MEDS ORDERED: NS IV 500 ML 500 ML IV ONE (01:00)
[2020-09-29 01:11] LABS: EOSINOPHILS % (AUTO) 0 % (0-10); HEMOGLOBIN 13.6 g/dL (13.3-17.7); MEAN CORPUSCULAR HEMOGLOBIN 32 pg (25-34)
--- NOTE | 2020-09-29 01:11 | ED Lower Extremity ---
General Stated Complaint: R FOOT PAIN Source: patient, EMS, RN notes reviewed, long term records Exam Limitations: clinical condition History of Present Illness Date Seen by Provider: Sep 29, 2020 Time Seen by Provider: 00:49 Initial Comments Patient presents to the ER by EMS from [facility] with chief complaint that the nurses have noticed he has had discoloration to his right foot for the past 2 to 3 days. Tonight they were not able to palpate a pulse although they report a pulse was palpable prior to tonight. Patient has recent history of strokes and is at baseline aphasic. Speaking to Ebenezer his brother he states that the patient can transfer with help to a wheelchair and back but does not walk. He is not able to easily convey his wishes verbally. He has had recent stroke as well as history of coronary disease and peripheral arterial disease. He is a DNR/DNI allow natural . Primary care by Dr. Isaac. Allergies and Home Medications Allergies Coded Allergies: No Known Drug Allergies (Unverified , 01/10/19) Home Medications Acetaminophen 500 Mg Tablet, 1,000 MG PO Q6H PRN for PAIN-MILD (1-4) OR TEMPATURE, (Reported) Aspirin 325 Mg Tablet.dr, 325 MG PO DAILY Prescribed by: RANDI ISAAC on 07/21/20921 Atorvastatin Calcium 80 Mg Tablet, 80 MG PO HS Prescribed by: RANDI ISAAC on 07/21/20921 Calcium Carbonate 500 Mg Tablet, 500-1,000 MG PO Q4H PRN for INDIGESTION, (Reported) Cefdinir 300 Mg Capsule, 300 MG PO BID Prescribed by: RANDI ISAAC on 07/21/20921 Citalopram Hydrobromide 20 Mg Tablet, 20 MG PO DAILY Prescribed by: RANDI ISAAC on 07/21/20921 Clopidogrel Bisulfate 75 Mg Tablet, 75 MG PO DAILY, (Reported) Ergocalciferol (Vitamin D2) 1,250 Mcg Capsule, 1,250 MCG PO SUN, (Reported) Famotidine 20 Mg Tablet, 20 MG PO BID, (Reported) Insulin Aspart 100 Unit/1 Ml Susp, UNIT SQ QIDACHS, (Reported) SLIDING SCALE: 160-200=3 UNITS 201-250=5 UNTIS 251-300=7 UNITS 301-350=9 UNITS 351-400=11 UNITS IF BS OVER 401 GIVE 11 UNITS AND CALL Insulin Determir 1,000 Units/10 Ml Soln, 5 UNITS SQ DAILY Prescribed by: RANDI ISAAC on 07/21/20921 Lactobacillus Acidophilus 1 Each Capsule, 1 EACH PO BID Prescribed by: RANDI ISAAC on 07/21/20921 Melatonin 3 Mg Tablet, 6 MG PO HS, (Reported) TAKES 2 (3MG) TABS Mirtazapine 15 Mg Tablet, 30 MG PO HS, (Reported) TAKES 2 (15MG) TABS Polyethylene Glycol 3350 17 Gm Powd.pack, 8.5 GM PO Q48H, (Reported) HOLD FOR LOOSE STOOLS Tamsulosin HCl 0.4 Mg Cap, 0.4 MG PO HS, (Reported) Patient Home Medication List Home Medication List Reviewed: Yes Review of Systems Constitutional: see HPI (Review of systems Per staff, notes and EMS. Patient is noncontributory.); No chills, No diaphoresis EENTM: No hearing loss, No ear pain Respiratory: No cough, No short of breath Cardiovascular: No edema, No palpitations Gastrointestinal: No abdominal pain, No constipation Musculoskeletal: No back pain, No joint pain Skin: see HPI, change in color All Other Systems Reviewed Negative Unless Noted: Yes Past Wajwpcc-Aylrju-Qragcl Hx Patient Social History Alcohol Use: Denies Use Drug of Choice: Denies Smoking Status: Unknown if Ever Smoked 2nd Hand Smoke Exposure: No Recent Hopitalizations: No Immunizations Up To Date Tetanus Booster (TDap): Unknown PED Vaccines UTD: No Date of Influenza Vaccine: Jan 12, 2020 Seasonal Allergies Seasonal Allergies: No Past Medical History Surgeries: Yes (UMBILICAL HERNIA; CYSTOSCOPY/PROSTATE BIOPSY; BILATERAL CA TARACT SURGERY) Abdominal, Coronary Stent, Eye Surgery Respiratory: Yes (respiratory failure) Cardiac: Yes (cardiomyopathy) Cardiomyopathy, Coronary Artery Disease, Heart Attack, High Cholesterol, Hypertension Neurological: No Stroke Reproductive Disorders: No Sexually Transmitted Disease: No HIV/AIDS: No Genitourinary: Yes (PROSTATE CANCER DX 03/2018) Prostate Problems, Kidney Stones, Renal Failure Gastrointestinal: Yes (UMBILICAL HERNIA REPAIR; POST RADIATION DIARRHEA/INCONTINENCE) Musculoskeletal: Yes Arthritis Endocrine: Yes Diabetes, Non-Insulin dep HEENT: Yes (S/P BILATERAL CATARACT SURGERY) Cataract Loss of Vision: Bilateral Hearing Impairment: Denies Cancer: Yes Prostate, Skin Did You Recieve Any Treatments: Yes What Type of Treatment Did You: Radiation Psychosocial: No Integumentary: No Blood Disorders: Yes (anemia) Adverse Reaction/Blood Tranf: No (N/A) Family Medical History Heart Disease, Hypertension Physical Exam Vital Signs Vital Signs - First Documented 09/29/20 00:50 Temp 36.0 Pulse 86 Resp 20 B/P (MAP) 98/52 (67) Pulse Ox 97 O2 Delivery Room Air Capillary Refill : Height, Weight, BMI Height: 5'6.00" Weight: 171lbs. 0.0oz. [id number]; 26.20 BMI Method:Estimated General Appearance: thin, other (Chronically ill) HEENT: PERRL/EOMI (4 mm bilateral), TMs normal Neck: full range of motion, normal inspection Cardiovascular: normal peripheral pulses, regular rate, rhythm Respiratory: lungs clear, no respiratory distress, no accessory muscle use Gastrointestinal: non tender, soft Legs: bilateral leg non-tender, bilateral leg normal inspection Feet: bilateral foot non-tender; left foot normal range of motion; right foot other (Mottled purple distal half of the right foot with no palpable dorsal pedal or posterior tibial pulse. No dopplerable pulse either.) Neurologic/Psychiatric: other (GCS 11,) Progress/Results/Core Measures Results/Orders Lab Results Laboratory Tests Test 09/29/20 00:58 09/29/20 01:10 09/29/20 01:14 Range/Units White Blood Count 14.7 H 4.3-11.0 10^3/uL Red Blood Count 4.30 4.30-5.52 10^6/uL Hemoglobin 13.6 13.3-17.7 g/dL Hematocrit 43 40-54 % Mean Corpuscular Volume 100 H 80-99 fL Mean Corpuscular Hemoglobin 32 25-34 pg Mean Corpuscular Hemoglobin Concent 32 32-36 g/dL Red Cell Distribution Width 15.9 H 10.0-14.5 % Platelet Count 50 L 130-400 10^3/uL Mean Platelet Volume 12.5 H 9.0-12.2 fL Immature Granulocyte % (Auto) 1 % Neutrophils (%) (Auto) 85 H 42-75 % Lymphocytes (%) (Auto) 5 L 12-44 % Monocytes (%) (Auto) 9 0-12 % Eosinophils (%) (Auto) 0 0-10 % Basophils (%) (Auto) 0 0-10 % Neutrophils # (Auto) 12.4 H 1.8-7.8 10^3/uL Lymphocytes # (Auto) 0.7 L 1.0-4.0 10^3/uL Monocytes # (Auto) 1.4 H 0.0-1.0 10^3/uL Eosinophils # (Auto) 0.0 0.0-0.3 10^3/uL Basophils # (Auto) 0.0 0.0-0.1 10^3/uL Immature Granulocyte # (Auto) 0.1 0.0-0.1 10^3/uL Neutrophils % (Manual) 91 % Lymphocytes % (Manual) 6 % Monocytes % (Manual) 3 % Percent Immature Platelet Fraction 12.1 H 0.0-7.6 % Blood Morphology Comment NORMAL Sodium Level 142 135-145 MMOL/L Potassium Level 5.2 H 3.6-5.0 MMOL/L Chloride Level 106 98-107 MMOL/L Carbon Dioxide Level 23 21-32 MMOL/L Anion Gap 13 5-14 MMOL/L Blood Urea Nitrogen 54 H 7-18 MG/DL Creatinine 2.06 H 0.60-1.30 MG/DL Estimat Glomerular Filtration Rate 31 BUN/Creatinine Ratio 26 Glucose Level 137 H 70-105 MG/DL Calcium Level 9.6 8.5-10.1 MG/DL Corrected Calcium 10.5 H 8.5-10.1 MG/DL Total Bilirubin 1.3 H 0.1-1.0 MG/DL Aspartate Amino Transf (AST/SGOT) 84 H 5-34 U/L Alanine Aminotransferase (ALT/SGPT) 71 H 0-55 U/L Alkaline Phosphatase 307 H 40-136 U/L C-Reactive Protein High Sensitivity 9.68 H 0.00-0.50 MG/DL Total Protein 6.4 6.4-8.2 GM/DL Albumin 2.9 L 3.2-4.5 GM/DL Urine Color YELLOW Urine Clarity CLEAR Urine pH 5.5 5-9 Urine Specific [place] >=1.030 1.016-1.022 Urine Protein 1+ H NEGATIVE Urine Glucose (UA) NEGATIVE NEGATIVE Urine Ketones NEGATIVE NEGATIVE Urine Nitrite NEGATIVE NEGATIVE Urine Bilirubin NEGATIVE NEGATIVE Urine Urobilinogen 1.0 < = 1.0 MG/DL Urine Leukocyte Esterase NEGATIVE NEGATIVE Urine RBC (Auto) 3+ H NEGATIVE Urine RBC 0-2 /HPF Urine WBC NONE /HPF Urine Squamous Epithelial Cells 2-5 /HPF Urine Crystals PRESENT H /LPF Urine Amorphous Sediment FEW WINDY URATES H /LPF Urine Bacteria NEGATIVE /HPF Urine Casts PRESENT /LPF Urine Hyaline Casts 2-5 H /LPF Urine Mucus SMALL H /LPF Urine Culture Indicated NO Lactic Acid Level 3.23 *H 0.50-2.00 MMOL/L My Orders Orders - OLIVIA GOOD Cbc With Automated Diff (09/29/20 00:57) Comprehensive Metabolic Panel (09/29/20 00:57) Hs C Reactive Protein (09/29/20 00:57) Lactic Acid Analyzer (09/29/20 00:57) Ua Culture If Indicated (09/29/20 00:57) Catheter(Urinary) Insert & Ass 03,15 (09/29/20 00:57) Ed Iv/Invasive Line Start (09/29/20 00:57) Ns Iv 500 Ml (Sodium Chloride 0.9%) (09/29/20 01:00) Manual Differential (09/29/20 00:58) Medications Given in ED Current Medications Medications Dose Ordered Sig/Trisha Route Start Time Stop Time Status Last Admin Dose Admin Sodium Chloride 500 ml @ 0 mls/hr Q0M ONCE IV 09/29/20 01:00 09/29/20 01:08 DC 09/29/20 01:16 999 MLS/HR Vital Signs/I&O 09/29/20 00:50 Temp 36.0 Pulse 86 Resp 20 B/P (MAP) 98/52 (67) Pulse Ox 97 O2 Delivery Room Air Progress Progress Note #1: Time: 01:00 Progress Note Had a conversation with Ebenezer the brother about what are the goals of care. At this time the patient is a DNR. The patient's brother says he will talk to the sister and they will try and make a decision tonight whether they want to go comfort care or actively pursue surgical intervention on the vasculature of the foot. Patient is not able to participate in conversations with this provider. He does not appear to be in any acute distress. A Tyler catheter was placed so we could obtain urine and labs as well as an IV was initiated. He is on Plavix at baseline. He is not on a blood thinner. Progress Note #2: Time: 01:45 Progress Note Discussed the case with Vaibhav and his Sister Lian and they are close to excepting the patient on hospice and comfort cares but want to consult with the primary care provider. The an appointment with Dr. Isaac today. Progress Note #3: Time: 02:16 Progress Note Discussed the case with Dr. Isaac and she says she has made multiple attempts to convince them to let him go comfort cares. He has refused all of his medications and that is why he is having these problems. He has apparently made statements that he is ready to . Continued the conversation with Lian and Vaibhav Lennon and at this time they are comfortable with the patient going inpatient on a GIP under hospice care. They have not elected to hospice. Departure Communication (Admissions) Time/Spoke to Admitting Phy: 02:55 Discussed the case with Hola Patel and he agrees with a GIP placement for hospice admission. He agrees the patient is a DO NOT RESUSCITATE, allow natural . Impression Primary Impression: Admission for hospice care Additional Impressions: Need for comfort care Vasculopathy Ischemic pain of right foot History of cerebrovascular accident (CVA) due to ischemia Disposition: ADMITTED INPATIENT Condition: Stable Admissions Decision to Admit Reason: Admit from ER (General) Decision to Admit/Date: Sep 29, 2020 Time/Decision to Admit Time: 02:30 Departure-Patient Inst. Referrals: RANDI ISAAC MD (PCP/Family) Primary Care Physician OLIVIA GOOD Sep 29, 2020 01:11
[2020-09-29 01:13] LABS: BASOPHILS % (AUTO) 0 % (0-10); HEMATOCRIT 43 % (40-54); LYMPHOCYTES # (AUTO) 0.7 10^3/uL (1.0-4.0); LYMPHOCYTES % (AUTO) 5 % (12-44); MEAN CORPUSCULAR HGB CONC 32 g/dL (32-36); MEAN CORPUSCULAR VOLUME 100 fL (80-99); MEAN PLATELET VOLUME 12.5 fL (9.0-12.2); MONOCYTES # (AUTO) 1.4 10^3/uL (0.0-1.0); MONOCYTES % (AUTO) 9 % (0-12); NEUTROPHILS # (AUTO) 12.4 10^3/uL (1.8-7.8); NEUTROPHILS % (AUTO) 85 % (42-75); PLATELET COUNT 50 10^3/uL (130-400); WHITE BLOOD COUNT 14.7 10^3/uL (4.3-11.0)
[2020-09-29 01:15] LABS: ALBUMIN 2.9 GM/DL (3.2-4.5); POTASSIUM 5.2 MMOL/L (3.6-5.0)
[2020-09-29 01:16] LABS: CALCIUM 9.6 MG/DL (8.5-10.1)
[2020-09-29 01:17] LABS: TOTAL PROTEIN 6.4 GM/DL (6.4-8.2)
[2020-09-29 01:19] LABS: BILIRUBIN,TOTAL 1.3 MG/DL (0.1-1.0)
[2020-09-29 01:20] LABS: BILIRUBIN,URINE NEGATIVE (NEGATIVE); CLARITY,URINE CLEAR; COLOR,URINE YELLOW; GLUCOSE, URINE (UA) NEGATIVE (NEGATIVE); KETONES,URINE NEGATIVE (NEGATIVE); LEUKOCYTE ESTERASE ,URINE NEGATIVE (NEGATIVE); NITRITE,URINE NEGATIVE (NEGATIVE); PH,URINE 5.5 (5-9); PROTEIN,URINE 1+ (NEGATIVE)
[2020-09-29 01:21] LABS: CREATININE SERUM 2.06 MG/DL (0.60-1.30)
[2020-09-29 01:28] LABS: AMORPHOUS SEDIMENT,UR FEW AMOR URATES /LPF; BACTERIA,URINE NEGATIVE /HPF; RBC,URINE 0-2 /HPF
[2020-09-29 01:35] LABS: LYMPHOCYTES % (MANUAL) 6 %; MONOCYTES % (MANUAL) 3 %; NEUTROPHILS % (MANUAL) 91 %; RBC MORPH NORMAL
[2020-09-29] MEDS ORDERED: BISACODYL 10 MG SUPP (DULCOLAX) PR PRN (03:45)
[2020-09-29] MEDS ORDERED: ONDANSETRON 4 MG/2 ML (SDV) Z0FRAN IVP PRN (03:45)
[2020-09-29] MEDS ORDERED: RT-ALBUTEROL/IPRATROPIUM 3 ML (DUONEB) VIAL INH PRN (03:45)
[2020-09-29] MEDS ORDERED: morphine INJ 4 MG/ML 1 ML (VIAL/SYRINGE) IV PRN (03:45)
[2020-09-29] MEDS ORDERED: ACETAMINOPHEN 650 MG SUPP (TYLENOL) PR PRN (03:45)
[2020-09-29] MEDS ORDERED: ARTIFICAL TEARS 0.4 ML UNIT DOSE (REFRESH PLUS) OU PRN (03:45)
[2020-09-29] MEDS ORDERED: ATROPINE 1% OPHTHALMIC SOLN 2 ML SL PRN (03:45)
[2020-09-29] MEDS ORDERED: LORazepam ORAL CONCENTRATE 2 MG/ML 30 ML (ATIVAN) PO PRN (03:45)
[2020-09-29] MEDS ORDERED: PROMETHAZINE INJ 25 MG/ML (PHENERGAN) AMP IVP PRN (03:45)
[2020-09-29] MEDS ORDERED: LORazepam INJ 2 MG/ML (ATIVAN) VIAL IVP PRN (03:45)
[2020-09-29] MEDS ORDERED: SALIVA STIMULANT MOUTH SPRAY (BIOTENE) 1.5 OZ MM PRN (03:45)
[2020-09-29] MEDS ORDERED: morphine (ROXINOL) 10 MG/0.5 ML oral conc 0.5 ML PO PRN (03:45)
[2020-09-29 04:15] VITALS: BP 103/61
[2020-09-29 08:00] VITALS: BP 134/82
--- NOTE | 2020-09-29 09:17 | History & Physical ---
History of Present Illness History of Present Illness Reason for visit/HPI NOMAN IS A 80 Y/O MALE WHO IS WELL KNOWN TO ME FROM CLINIC. NOMAN HAS A LONG STANDING HISTORY OF HYPERTENSION AND DIABETES AND RENAL DISEASE AND MORE RECENTLY RECURRENT STROKES. NOMAN HAS BEEN DECLINING AT THE [facility] AND HE HAS BEEN REFUSING TO EAT AND TAKE MEDICATIONS INTERMITTENTLY FOR THE PAST FEW MONTHS. HOWEVER, IN THE PAST 1-2 WEEKS HE HAS BEEN CONSISTENTLY REFUSING HIS MEDICATIONS. HE PRESENTED TO THE HOSPITAL EMERGENCY DEPARTMENT ON TUESDAY EVENING WITH A COLD RIGHT FOOT AND DISCOLORATION OF THE FOOT. THE FAMILY REQUESTED FOR ME TO BE CALLED TO DISCUSS RECOMMENDATIONS FOR ADMISSION FOR CURATIVE TREATMENT VERSUS PALLIATIVE CARE IN THE HOSPITAL THEY ULTIMATELY DECIDED UPON ADMISSION FOR COMFORT CARE/PALLIATIVE CARE. Date of Admission Sep 29, 2020 at 03:00 Date Seen by a Provider: Sep 29, 2020 Time Seen by a Provider: 16:50 I consulted on this patient on 09/29/20 09:17 Attending Physician RANDI ISAAC MD Admitting Physician Randi Isaac MD Consult Allergies and Home Medications Allergies Coded Allergies: No Known Drug Allergies (Unverified , 01/10/19) Patient Home Medication List Home Medication List Reviewed: Yes Past Gdwxrvb-Vpqhfq-Tjvaqd Hx Past Med/Social Hx: Reviewed Nursing Past Med/Soc Hx, Reviewed and Corrections made Patient Social History Marrital Status: Number of Children: 0 Number of living children: 0 Living Status: LIVES AT [facility], PREVIOUSLY RESIDED IN [place] ON HIS OWN 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[place]) Alcohol Use: Denies Use Recreational Drug Use: No Drug of Choice: Denies Smoking Status: Unknown if Ever Smoked Type Used: Cigars 2nd Hand Smoke Exposure: No Physical Abuse Screen: No Sexual Abuse: No Recent Foreign Travel: No Contact w/other who traveled: No Recent Hopitalizations: No Recent Infectious Disease Expo: No Immunizations Up To Date Tetanus Booster (TDap): Unknown Pediatric: No Date of Influenza Vaccine: Jan 12, 2020 Seasonal Allergies Seasonal Allergies: No Past Medical History Surgeries: Abdominal, Coronary Stent, Eye Surgery Cardiac: Cardiomyopathy, Coronary Artery Disease, Heart Attack, High Cholestero l, Hypertension Neurological: Stroke Reproductive: No Sexually Transmitted Disease: No HIV/AIDS: No Genitourinary: Prostate Problems, Kidney Stones, Renal Failure Musculoskeletal: Arthritis Endocrine: Diabetes, Non-Insulin dep HEENT: Cataract Loss of Vision: Bilateral Hearing Impairment: Denies Cancer: Prostate, Skin Did You Recieve Any Treatments: Yes What Type of Treatment Did You: Radiation History of Blood Disorders: Yes (anemia) Adverse Reaction to Blood Perez: No (N/A) Family History Reviewed and Corrections made Heart Disease, Diabetes, Hypertension Review of Systems Constitutional: No chills, No fever; malaise, weakness, weight loss Respiratory: no symptoms reported Cardiovascular: No chest pain; other (COLD RIGHT FOOT) Gastrointestinal: loss of appetite; No nausea, No vomiting Genitourinary: no symptoms reported Musculoskeletal: muscle weakness (GENERALIZED), other (COLD RIGHT FOOT) Skin: change in color (RIGHT FOOT) Psychiatric/Neurological: Anxiety, Depressed, Pre-Existing Deficit (LEFT UPPER AND LOWER EXTREMITY), Weakness All Other Systems Reviewed Negative Unless Noted: Yes Physical Exam Vital Signs Vital Signs - First Documented 09/29/20 09/30/20 16:12 07:09 O2 Flow Rate 0.00 FiO2 21 Capillary Refill : Greater Than 3 Seconds Height, Weight, BMI Height: 5'6.00" Weight: 171lbs. 0.0oz. [id number]; 18.30 BMI Method:Estimated General Appearance: Thin, Other (GROGGY, MINIMAL RESPONSIVENESS TO CONVERSATION) HEENT: PERRL/EOMI Respiratory: Chest Non Tender, Lungs Clear, Normal Breath Sounds, No Accessory Muscle Use Cardiovascular: Regular Rate, Rhythm Gastrointestinal: Normal Bowel Sounds, Non Tender, Soft Rectal: Deferred Extremity: Slow Capillary Refill (COLD RIGHT FOOT WITH PURPLE DISCOLORATION ON DORSUM OF FOOT TO TOES, COLD TO KNEE ON RIGHT, WARM ON LEFT) Neurologic/Psychiatric: Other (AROUSES TO MY VOICE, OPENS EYES, RIGHT SIDE OF FACE APPEARS FLACID) Skin: Cool (RIGHT FOOT), Cyanosis (RIGHT FOOT) Assessment/Plan Assessment and Plan CORONARY ARTERY DISEASE CEREBROVASCULAR DISEASE PERIPHERAL VASCULAR DISEASE CHRONIC STAGE 4 RENAL FAILURE HYPERTENSION DIABETES MELLITUS ANOREXIA CACHEXIA PALLIATIVE CARE ENCOUNTER NOMAN IS A 80 Y/O MALE WHO HAS SUSTAINED RECURRENT STROKES - SEVERAL WITHIN THE PAST YEAR. HE HAS BEEN PROGRESSIVELY LOOSING WEIGHT, REFUSING TO EAT, AND MOST RECENTLY HAS BEEN REFUSING HIS MEDICATIONS. NOMAN PRESENTED TO THE HOSPITAL WITH A COLD AND PAINFUL RIGHT FOOT. HIS FAMILY HAS DECIDED TO PURSUE COMFORT CARE IN THE HOSPITAL. WE WILL CONTINUE WITH PAIN MANAGEMENT, AND MAKE PLANS FOR PT TO GO BACK TO THE [facility] ON HOSPICE. I HAD A LONG CONVERSATION WITH HIS BROTHER - DEQUAN, AND SISTER- BRETT TA - WE HAVE DECIDED THAT THEY WILL MAKE A DECISION ABOUT HOSPICE, AND LET US KNOW BEFORE TUESDAY TO THE HOSPICE OF THEIR CHOICE. I HAVE INITIATED SCHEDULED PAIN MEDICATION FOR NOMAN SINCE HE DOES NOT HELP TO SELF DIRECT AND IGNORES STAFF WHEN THEY ENTER HIS ROOM. HE DID RESPOND TO ME WHEN I ASKED ABOUT PAIN AND HE WINCED AND ATTEMPTED TO PULL AWAY WHEN I EXAMINED HIS FOOT ON THE RIGHT. WE WILL GIVE MORPHINE 2 GRAM IV Q 2 HOUR AND IF NEEDED WE CAN ALSO INITIATE THE PRN ATIVAN FOR AIR HUNGER. WE WILL NOT INITIATE OXYGEN SINCE THAT WILL PROLONG THE PROCESS OF HIM PASSING AWAY. DEQUAN AND BRETT ARE IN AGREEMENT WITH THIS PLAN. Admission Diagnosis CORONARY ARTERY DISEASE CEREBROVASCULAR DISEASE PERIPHERAL VASCULAR DISEASE CHRONIC STAGE 4 RENAL FAILURE HYPERTENSION DIABETES MELLITUS ANOREXIA CACHEXIA PALLIATIVE CARE ENCOUNTER Admission Status: Inpatient Order (span 2 midnights) Reason for Inpatient Admission: PT ADMITTED FOR PAIN CONTROL OF EXTREMITY WHICH HAS SUSTAINED A VASCULAR ACCIDENT, WE WILL PLACE PT ON COMFORT CARE, MAXIMIZE APPROPRIATE MEDICATIONS FOR A REGIMEN WHICH OFFERS PAIN AND SYMPTOM CONTROL, WILL REQUIRE AT LEAST 48-72 HOURS FOR STABILIZATION AND PLANS FOR DISCHARGE. RANDI ISAAC MD Sep 29, 2020 09:17
[2020-09-29] MEDS ORDERED: METO5TAB2 PO (14:01)
[2020-09-29] MEDS ORDERED: ALLO100T PO (14:01)
[2020-09-29] MEDS ORDERED: CARV6.252 PO (14:01)
[2020-09-29] MEDS ORDERED: POTA10TA PO (14:01)
[2020-09-29] MEDS ORDERED: CHOL10007 PO (14:01)
[2020-09-29] MEDS ORDERED: FURO20TA4 PO (14:01)
[2020-09-29] MEDS ORDERED: ONDA-105 PO (14:01)
[2020-09-29] MEDS ORDERED: L. A1TAB10 PO (14:01)
[2020-09-29] MEDS ORDERED: DRONABINOL PO (14:01)
[2020-09-29] MEDS ORDERED: ATOR80TA76 PO (14:01)
[2020-09-29] MEDS ORDERED: DICL100G13 TOP (14:01)
[2020-09-29] MEDS ORDERED: LOSA25TA41 PO (14:01)
[2020-09-29] MEDS ORDERED: CITA20TA9 PO (14:01)
[2020-09-29] MEDS ORDERED: MAGIC CUP RC (14:01)
[2020-09-29] MEDS ORDERED: CALC-308 PO (14:01)
[2020-09-29] MEDS ORDERED: ASPI325T32 PO (14:01)
[2020-09-29] MEDS ORDERED: INSU100V5 SQ (14:33)
[2020-09-29 16:12] VITALS: BP 134/84
[2020-09-29] MEDS ORDERED: RT-ALBUTEROL SULF 2.5 MG/3 ML PRE-MIX VIAL INH PRN (16:15)
[2020-09-29] MEDS: morphine INJ 4 MG/ML 1 ML (VIAL/SYRINGE) IVP SCH ×4 (17:25→23:26)
[2020-09-30] MEDS: morphine INJ 4 MG/ML 1 ML (VIAL/SYRINGE) IVP SCH ×12 (01:43→23:39)
--- NOTE | 2020-09-30 08:24 | Progress Note ---
Subjective Subjective Date Seen by Provider: Sep 30, 2020 Time Seen by Provider: 08:15 THIN FRAIL ELDERLY MALE WITH SIGNIFICANT DECLINE OVER THE PAST FEW DAYS - PATIENT IS ON HOSPICE/COMFORT CARE IN THE HOSPITAL DUE TO HIS PROGRESSIVE DECLINE. Review of Systems General: No Chills; Malaise Pulmonary: Dyspnea Gastrointestinal: No: Nausea, Vomiting Neurological: Other All Other Systems Reviewed All Other Systems Reviewed: Yes Objective Exam Vital Signs Vital Signs - First Documented 09/29/20 09/30/20 16:12 07:09 O2 Flow Rate 0.00 FiO2 21 Capillary Refill : Greater Than 3 Seconds General Appearance: Chronically ill, Cachetic Respiratory: Chest Non Tender, Decreased Breath Sounds Cardiovascular: Systolic Murmur Gastrointestinal: Soft Rectal: Deferred Neurologic/Psychiatric: Depressed Affect Assessment/Plan Assessment/Plan Admission Dx CORONARY ARTERY DISEASE CEREBROVASCULAR DISEASE PERIPHERAL VASCULAR DISEASE CHRONIC STAGE 4 RENAL FAILURE HYPERTENSION DIABETES MELLITUS ANOREXIA CACHEXIA PALLIATIVE CARE ENCOUNTER NOMAN IS A 80 Y/O MALE WHO HAS SUSTAINED RECURRENT STROKES - SEVERAL WITHIN THE PAST YEAR. HE HAS BEEN PROGRESSIVELY LOOSING WEIGHT, REFUSING TO EAT, AND MOST RECENTLY HAS BEEN REFUSING HIS MEDICATIONS. NOMAN PRESENTED TO THE HOSPITAL WITH A COLD AND PAINFUL RIGHT FOOT. HIS FAMILY HAS DECIDED TO PURSUE COMFORT CARE IN THE HOSPITAL. WE WILL CONTINUE WITH PAIN MANAGEMENT, AND MAKE PLANS FOR PT TO GO BACK TO THE [facility] ON HOSPICE. Admission Status: Inpatient Order (span 2 midnights) Assessment and Plan PT ON COMFORT CARE IN THE HOSPITAL WILL CONTINUE WITH CURRENT MANAGEMENT - PT'S FAMILY ON BOARD WITH THE PLAN FOR COMFORT CARE, ANTICIPATE A RAPID DECLINE AND FOR PT TO PASS IN HOSPITAL RANDI VIGIL MD Sep 30, 2020 08:24
--- NOTE | 2020-11-04 21:20 | Discharge Summary ---
Discharge Summary Date of Admission Sep 29, 2020 at 03:00 Date of Discharge Oct 01, 2020 at 01:03 Discharge Date: Oct 01, 2020 Discharge Time: 01:00 Admission Diagnosis CORONARY ARTERY DISEASE CEREBROVASCULAR DISEASE PERIPHERAL VASCULAR DISEASE CHRONIC STAGE 4 RENAL FAILURE HYPERTENSION DIABETES MELLITUS ANOREXIA CACHEXIA PALLIATIVE CARE ENCOUNTER Comfort Measures/ End of Life Care: Comfort Measures Date of : Oct 01, 2020 Time of : 01:00 Discharge Diagnosis CORONARY ARTERY DISEASE CEREBROVASCULAR DISEASE PERIPHERAL VASCULAR DISEASE CHRONIC STAGE 4 RENAL FAILURE HYPERTENSION DIABETES MELLITUS ANOREXIA CACHEXIA PALLIATIVE CARE ENCOUNTER RANDI VIGIL MD Nov 04, 2020 21:20
== END 2020-10-01 01:03 | disposition expired | DRG 951 ==
LOC: EDUNIT# 00:50 → ER 00:51 → 4TH 03:00
PROVIDERS: ADMIT Family Medicine; ATTEND Family Medicine
DX: Z51.5 Encounter for palliative care (principal); N18.4 Chronic kidney disease, stage 4 (severe); I42.9 Cardiomyopathy, unspecified; R64 Cachexia; Z68.1 Body mass index [BMI] 19.9 or less, adult; M31.9 Necrotizing vasculopathy, unspecified; Z66 Do not resuscitate; I69.898 Other sequelae of other cerebrovascular disease; I25.10 Atherosclerotic heart disease of native coronary artery without angina pectoris; E78.00 Pure hypercholesterolemia, unspecified; M19.90 Unspecified osteoarthritis, unspecified site; E11.51 Type 2 diabetes mellitus with diabetic peripheral angiopathy without gangrene; I12.9 Hypertensive chronic kidney disease with stage 1 through stage 4 chronic kidney disease, or unspecified chronic kidney disease; E11.22 Type 2 diabetes mellitus with diabetic chronic kidney disease; R63.0 Anorexia; I25.2 Old myocardial infarction; Z85.46 Personal history of malignant neoplasm of prostate; Z85.828 Personal history of other malignant neoplasm of skin; Z92.3 Personal history of irradiation; Z79.82 Long term (current) use of aspirin; Z79.4 Long term (current) use of insulin; Z79.899 Other long term (current) drug therapy; Z95.5 Presence of coronary angioplasty implant and graft
CPT/HCPCS: 36415; 80053; 81000; 83605; 85007; 85027; 86141; 96360